=== PATIENT | male | born 1940 | race Caucasian/White ===

== ENCOUNTER 2021-11-09 10:39 | Emergency (ER) | payer MEDICARE, OTHER, SELFPAY ==
[2021-11-09 10:40] VITALS: BP 136/64; PULSE 75; RESP 16; TEMP 36.8; O2SAT 95; BMI 38.6
--- NOTE | 2021-11-09 10:57 | CT_ITS ---
INDICATION: Chest and back pain EXAMINATION: CTA CHEST, ABDOMEN AND PELVIS WITH CONTRAST - TECHNIQUE: A CTA of the chest, abdomen, and pelvis is obtained with sagittal and coronal reconstructed MIP views. Three-dimensional surface rendered sequence of the thoracic and abdominal aorta was obtained. A radiation dose optimization technique was used for this scan. 100 mL of Isovue-370. Oral contrast: None. COMPARISON: None. FINDINGS: CT CHEST: THORACIC AORTA: Scattered atherosclerotic plaque formation of the aortic arch, no aneurysmal changes or dissection. ABDOMINAL AORTA: No aneurysm or dissection. Scattered atherosclerotic plaques. The iliac arteries are unremarkable. LUNGS: Mild degree of scarring in the posterior medial segments of both lower lobes. MEDIASTINUM: The thyroid gland is normal. No mediastinal or hilar adenopathy. HEART: Heart is normal size. No pericardial effusion. Coronary artery calcification. CT ABDOMEN AND PELVIS: LIVER: Diffuse fatty infiltration of the liver. The patient is status post cholecystectomy. GALLBLADDER: Status post cholecystectomy. SPLEEN: Normal. PANCREAS: Pancreatic atrophy. ADRENAL GLANDS: Normal. KIDNEYS AND URETERS: The kidneys both enhance appropriately. Mild degree of bilateral renal cortical thinning. Nonspecific bilateral perinephric stranding.. No hydronephrosis or nephrolithiasis. No renal masses or cysts. STOMACH: Normal. SMALL BOWEL: No abnormal distention of the small bowel. MESENTERY: No mesenteric inflammation. No ascites. COLON: Scattered sigmoid diverticula. The colon otherwise is normal. There is a large fatty ileocecal valve. APPENDIX: The patient is status post appendectomy. IVC: Normal. RETROPERITONEUM: No retroperitoneal lymphadenopathy. PELVIC STRUCTURES: Mild lateral wall thickening. Prostatic enlargement. The prostate measures 4.5 cm x 5.8 cm. This causes indentation at the bladder base. SOFT TISSUES ABDOMEN: Small umbilical hernia containing fat. SOFT TISSUE CHEST: The extrathoracic soft tissues are normal. BONES: Degenerative changes of the lumbar spine as well as both hip joints. CT/CTA Chst, Abd, Pel W and/or WO IMPRESSION: No evidence of the thoracic or abdominal aortic aneurysm. Fatty infiltration of the liver. Nonspecific bilateral perinephric stranding. Electronically Signed: Ja Hernández MD at 13:33 EDT ,
--- NOTE | 2021-11-09 10:58 | EKG12_ITS ---
Test Reason : CP Blood Pressure : / mmHG Vent. Rate : 066 BPM Atrial Rate : 066 BPM P-R Int : 168 ms QRS Dur : 102 ms QT Int : 378 ms P-R-T Axes : 009 -27 047 degrees QTc Int : 396 ms Sinus rhythm with Premature supraventricular complexes Inferior infarct , age undetermined Abnormal ECG Confirmed by AMAURI ROWLEY, MERLY ([id number]), art editor CEASAR ANTUNEZ ([id number]) on 11/10/2021 12:53:04 PM Referred By: PL Confirmed By:MERLY BAUGH MD
[2021-11-09 11:00] VITALS: BP 120/60; PULSE 58; RESP 18; O2SAT 96
[2021-11-09] MEDS: DiphenhydrAMINE 50 MG/ML Syringe IV (11:11)
--- NOTE | 2021-11-09 11:12 | EDS_ITS ---
HPI History of Present Illness Chief Complaint: Chest Pain Informant: patient Narrative Narrative: Patient feels he had a reaction to the Moderna and shingles vaccine. He felt perfectly normal this morning. He went to get his fourth Moderna shot and his shingles vaccine. About 10 minutes later he was sitting in his truck. He got pain in his lower back and then his left upper chest. He felt a little lightheaded with this. However, he was not short of breath. He had no nausea vomiting. He took some of his own nitro and the nitro by the squad and he is now down to about a 2. He states is progressively getting less and less. He had no abdominal pain. He had no numbness tingling weakness. He has no history of AAA. He has history of angina but has never had stents. Of note, he had a heart catheterization many years ago. He did not require any stenting or intervention. However, he did have swelling afterwards and had a reaction to the IV contrast. He was told he is at high risk taking this again. He has not had it since to the best of his knowledge. [facility] Medical History Diabetes High cholesterol Hypertension Hypothyroid Home Medications aspirin 325 mg PO DAILY@0800 08/20/16 [History Last Taken Unknown] atenolol 25 mg PO QHS 08/20/16 [History Last Taken Unknown] atorvastatin 40 mg PO QHS 08/20/16 [History Last Taken Unknown] hydrochlorothiazide 12.5 mg PO DAILY 08/20/16 [History Last Taken Unknown] insulin glargine [Lantus] 30 unit SQ QHS 08/20/16 [History Last Taken Unknown] insulin lispro [Humalog KwikPen] 10 unit SQ TIDCM 08/20/16 [History Last Taken Unknown] levothyroxine 75 mcg PO DAILY 08/20/16 [History Last Taken Unknown] losartan [Cozaar] 50 mg PO DAILY 08/20/16 [History Last Taken Unknown] metformin 850 mg PO BIDCM 08/20/16 [History Last Taken Unknown] nitroglycerin 0.4 mg SUBLINGUAL Q5M PRN 08/20/16 [History Last Taken Unknown] omega-3 fatty acids [Fish Oil] 1,000 mg PO DAILY 02/18/17 [History Last Taken Unknown] etodolac 400 mg PO BID 11/09/21 [History Last Taken Unknown] Allergy/AdvReac Type Severity Reaction Status Date / Time iodine Allergy Swelling Verified 11/09/21 10:43 Surgical History History of appendectomy History of cholecystectomy History of tonsillectomy Social History Smoking Status: Never smoker ROS ROS ED Constitutional Constitutional ED: Denies chills or fever(s) Eyes Eyes: Denies blurry vision or change in vision ENT ENT ED: Denies rhinorrhea or sore throat Cardiovascular Cardiovascular: Reports chest pain; Denies palpitations or racing heartbeat Respiratory/Chest Respiratory/Chest: Denies cough, dyspnea or sputum Gastrointestinal Gastrointestinal: Denies abdominal pain, diarrhea, nausea or vomiting Genitourinary Genitourinary ED: Denies dysuria or hematuria Musculoskeletal Musculoskeletal: Reports back pain; Denies arthralgias, myalgias or neck pain Neurologic Neurologic: Denies headache(s) or weakness Psychiatric Psychiatric: Denies anxiety or depression Endocrine Endocrinology: Reports other Details: Blood sugar was normal at about 80 this morning per the patient. ; Denies polydipsia or polyuria Hematologic/Lymphatic Hematologic/Lymphatic: Reports other Details: Patient is on baby aspirin and did take it today. He is on no other anticoagulation. ; Denies easy bleeding or easy bruising Allergic/Immunologic Allergic/Immunologic ED: Denies mouth swelling or urticaria EXAM Physical Exam Const Vital Signs: 11/09/21 10:40 11/09/21 11:00 11/09/21 11:06 Temperature 98.3 F Temperature Source Oral Pulse Rate 75 58 L Respiratory Rate 16 18 Blood Pressure 136/64 H 120/60 Blood Pressure Mean 88 80 Pulse Ox 95 96 Oxygen Delivery Method Room Air Room Air Room Air 11/09/21 12:00 11/09/21 12:45 Temperature Temperature Source Pulse Rate 57 L 67 Respiratory Rate 18 24 H Blood Pressure 115/55 L 117/58 L Blood Pressure Mean 75 77 Pulse Ox 95 95 Oxygen Delivery Method Room Air Room Air Patient looks comfortable. He is nontoxic. He is not diaphoretic. Positive well nourished, well developed and obese General Appearance ED: well developed and NAD Nutritional Appearance: obese HEENT Reports moist mucous membranes Eyes General Eye ED: Negative for pale conjunctiva or scleral icterus Neck No no JVD Chest Wall inspection of chest normal Resp normal respiratory effort Effort and Inspection: respiratory distress Cardio regular rate, regular rhythm and no murmurs Back/Spine no CVA tenderness Extremity normal to inspection Extremity Narrative: No notable anemia. He has good equal peripheral pulses x4. No mottling or duskiness of extremities. No indication of poor peripheral perfusion. General Extremety ED: Negative for edema or tenderness General Extremity: Negative for edema Neuro Sensorium / Orientation: awake and alert Psych mental status grossly normal Skin no rashes or lesions noted MDM MDM MDM Narrative Medical decision making narrative: Patient has history of significant reaction to IV contrast potentially. I do not have the details of what happened in the past. I will start Benadryl and Solu-Medrol. We will get other blood work back. He is clinically stable. Our plan is to get CT angiogram. Patient was able to get the CT angiogram without any sign of reaction. This showed a nonspecific perinephric stranding but no other acute process. Patient has no urinary symptoms at all. He states he mostly had pain in his back. He had little sensation in his left chest that was minimal. His troponin and repeat troponin are negative. His blood work shows some mild renal dysfunction which is baseline. Nonspecific white count elevation at 12. Hemoglobin stable. Patient feels this is likely a reaction to the shot. It certainly possible since he got 2 immunizations at once. He states he has little soreness in his back with motion but that is it. We did get him up and walked. He actually walked very well. He feels good. I think we can get him home at this time. He is comfortable with this plan. Lab Data Attestation: I reviewed the patient's lab results. Labs: Laboratory Results - last 24 hr 11/09/21 11/09/21 11/09/21 10:42 10:42 13:20 WBC 12.0 H RBC 5.35 Hgb 15.2 Hct 46.4 MCV 86.7 MCH 28.4 MCHC 32.8 RDW Std Deviation 43.3 RDW Coeff of Tyesha 13.7 Plt Count 272 MPV 10.9 Immature Gran % (Auto) 2.200 H Neut % (Auto) 76.8 H Lymph % (Auto) 15.1 L [place] % (Auto) 4.9 Eos % (Auto) 0.6 Baso % (Auto) 0.4 Absolute Neuts (auto) 9.2 H Absolute Lymphs (auto) 1.80 Nucleated RBC % 0 Sodium 142 Potassium 4.4 Chloride 108 H Carbon Dioxide 24.0 Anion Gap 10 BUN 31 H Creatinine 1.48 H Estim Creat Clear Calc 36.60 Est GFR (MDRD) Af Amer 59 L Est GFR (MDRD) Non-Af 48 L BUN/Creatinine Ratio 20.9 H Glucose 108 H Calcium 9.6 Troponin I High Sens 7 9 Radiography Diagnostic Testing: Clinical Impression(s) from Imaging Studies Chest/Abdomen/Pelvis CTA 11/09/21 10:57 IMPRESSION: No evidence of the thoracic or abdominal aortic aneurysm. Fatty infiltration of the liver. Nonspecific bilateral perinephric stranding. Electronically Signed: Ja Hernández MD at 13:33 EDT , Chest X-Ray 11/09/21 11:20 IMPRESSION: Elevation of the right hemidiaphragm with focal right basilar infiltrate. Electronically Signed: Ja Hernández MD at 12:19 EDT , EKG Initial EKG: Comments: EKG done for transient chest pain read by me shows sinus rhythm with occasional PVC. No ventricular ectopy. Diffuse nonspecific ST and T wave changes but no sign of acute infarct or ischemia. [place] interval, QRS duration and QTc are normal. Discharge Plan Triage Chief Complaint: Chest Pain ED Provider: Gregory Newman Dx/Rx/DC Orders Clinical Impression: Lumbar back pain, Chest pain, Immunization reaction Instructions: ED Drug Reaction, Other, ED Pain, Acute, Uncertain Cause Prescriptions: No Action losartan [Cozaar] 50 MG tablet 50 mg PO DAILY RF: 0 atorvastatin 40 MG tablet 40 mg PO QHS RF: 0 Lantus U-100 Insulin 100 UNIT/ML solution 30 unit SQ QHS RF: 0 aspirin 325 MG tablet 325 mg PO DAILY@0800 RF: 0 metformin 850 MG tablet 850 mg PO BIDCM RF: 0 atenolol 25 MG tablet 25 mg PO QHS RF: 0 levothyroxine 75 MCG tablet 75 mcg PO DAILY RF: 0 nitroglycerin 0.4 MG tablet 0.4 mg sublingual Q5M PRN (Reason: Chest Pain) RF: 0 hydrochlorothiazide 25 MG tablet 12.5 mg PO DAILY RF: 0 insulin lispro [Humalog KwikPen Insulin] 100 UNIT/ML insulin pen 10 unit SQ TIDCM RF: 0 Fish Oil 500 MG capsule 1,000 mg PO DAILY RF: 0 etodolac 400 mg tablet 400 mg PO BID RF: 0 Primary Care Provider: Demetris Fuentes Referrals: Demetris Fuentes MD [Primary Care Provider] - 3-5 Days Disposition Disposition: Home, Self Care
[2021-11-09 11:14] LABS: Absolute Neutrophil Count 9.2 X10^3/uL (2.0-7.7); Basophil# 0.05 X10^3/uL; Basophil% 0.4 % (0-1); Eosinophil# 0.07 X10^3/uL; Eosinophils% 0.6 % (0-5); Hematocrit 46.4 % (40-54); Hemoglobin 15.2 g/dL (13.0-16.5); Lymphocyte % 15.1 % (19-41); Mean Corp Hgb Conc 32.8 g/dL (32-36); Mean Corpuscular Hgb 28.4 pg (27.0-32.0); Mean Corpuscular Volume 86.7 fL (80-94); Mean Platelet Vol. 10.9 fl (6.2-12.0); Monocyte# 0.59 X10^3/uL; Monocyte% 4.9 % (0-10); NRBC Flagged by Analyzer 0 % (0-5); Neutrophil # 9.18 X10^3/uL (2.7-7.7); Neutrophil % 76.8 % (47-70); Platelet Count 272 K/mm3 (150-450); RBC Distribution Width CV 13.7 % (11.6-14.6); RBC Distribution Width SD 43.3 fl (35.1-43.9); Red Blood Count 5.35 M/mm3 (4.6-6.2)
--- NOTE | 2021-11-09 11:20 | RAD_ITS ---
STUDY: X-RAY CHEST REASON FOR EXAM: Male, 80 years old. Chest pain TECHNIQUE: Single AP portable view of the chest. COMPARISON: None. FINDINGS: EKG electrodes are seen. There is elevation of the right hemidiaphragm. Focal infiltrate is seen in the right lower lobe. There is no demonstrated pleural abnormality. There is mild cardiac enlargement. Normal mediastinum and nghia. Normal visualized pulmonary arteries. There is atherosclerotic calcification of the aortic arch with tortuosity. Normal visualized thoracic spine. Normal visualized ribs, clavicles, and shoulders. There is no demonstrated abnormality of the visualized soft tissue structures of the upper abdomen. RAD/Chest 1 View (Portable) IMPRESSION: Elevation of the right hemidiaphragm with focal right basilar infiltrate. Electronically Signed: Ja Hernández MD at 12:19 EDT ,
[2021-11-09 11:30] LABS: Anion Gap 10 (5-15); BUN 31 mg/dL (7-18); BUN/Creat Ratio 20.9 RATIO (10-20); Calcium,Total 9.6 mg/dL (8.5-10.1); Chloride 108 mmol/L (98-107); Creatinine, Serum 1.48 mg/dL (0.70-1.30); EST Glomerular Filtration Rate 48 mL/min (>60); Est Glom Filt Rate - Afr Amer 59 mL/min (>60); Glucose 108 mg/dL (74-106); Potassium 4.4 mmol/L (3.5-5.1); Sodium Level 142 mmol/L (136-145); Troponin-I HS (w/2H Reflex) 7 pg/mL (3.0-78.0)
[2021-11-09 12:00] VITALS: BP 115/55; PULSE 57; RESP 18; O2SAT 95
[2021-11-09 12:45] VITALS: BP 117/58; PULSE 67; RESP 24; O2SAT 95
[2021-11-09 13:10] LABS: Reflex Troponin-HS? (from REC) Y
[2021-11-09 13:46] LABS: Troponin-I HS 9 pg/mL (3.0-78.0)
[2021-11-09 14:21] VITALS: BP 128/78; PULSE 66; RESP 15; O2SAT 99
== END 2021-11-09 14:22 | disposition home or self-care (01) ==
PROVIDERS: Emergency Provider Emergency Medicine; PCP Family Medicine; Visit Provider Emergency Medicine
DX: R07.9 Chest pain, unspecified (principal); E11.9 Type 2 diabetes mellitus without complications; Z79.4 Long term (current) use of insulin; M54.50 Low back pain, unspecified; T78.49XA Other allergy, initial encounter; T50.B95A Adverse effect of other viral vaccines, initial encounter; E78.00 Pure hypercholesterolemia, unspecified; I10 Essential (primary) hypertension; E03.9 Hypothyroidism, unspecified; Z79.82 Long term (current) use of aspirin; Z79.84 Long term (current) use of oral hypoglycemic drugs; Z79.899 Other long term (current) drug therapy
CPT/HCPCS: 71045; 71275; 74174; 80048; 84484; 85025; 93005; 96374; 96375; 99285; Q9967; A4216

== ENCOUNTER 2022-07-06 10:39 | Inpatient (IN) | payer MEDICARE, OTHER, SELFPAY ==
[2022-07-06] VITALS (15 sets, daily range): BP systolic 146–186; BP diastolic 70–110; PULSE 65–142; RESP 14–25; TEMP 36.2–37.3; O2SAT 82–98; BMI 38.7; BMI 39.2
--- NOTE | 2022-07-06 12:43 | EKG12_ITS ---
Test Reason : DYSRHYTHMIA Blood Pressure : / mmHG Vent. Rate : 066 BPM Atrial Rate : 066 BPM P-R Int : 174 ms QRS Dur : 104 ms QT Int : 392 ms P-R-T Axes : -28 -31 061 degrees QTc Int : 410 ms Normal sinus rhythm with sinus arrhythmia Left axis deviation Incomplete right bundle branch block Minimal voltage criteria for LVH, may be normal variant ( R in aVL ) Inferior infarct , age undetermined Anterior infarct , age undetermined Abnormal ECG Confirmed by VALE ROWLEY, ROGELIO ([id number]), editor trade journal CEASAR ANTUNEZ ([id number]) on 07/08/2022 6:28:50 AM Referred By: JUNITO Confirmed By:SHIRA COLLAZO MD
--- NOTE | 2022-07-06 12:44 | EDS_ITS ---
HPI History of Present Illness Chief Complaint: Weakness Informant: patient and family (son) Onset/Context/Timing Onset: Today Context: - (Woke up with symptoms) Timing: Continuous Quality: Weakness Location: All over Current Severity: Severe Maximum Severity: Severe Worsened by: Nothing Relieved by: Nothing Narrative Narrative: Patient has felt so weak this morning that he tried to get up and around his house, but this resulted in a fall because his legs would not hold him up. Of diarrhea this morning that was loose not watery, nonmelanotic, nonbloody, but not enough to make him dehydrated. He felt fine yesterday. He has had swelling in his legs that is chronic and may be worse in the last several weeks. He denies any fevers or chills but he has had a cough recently, no dyspnea, chest pain, or other abdominal symptoms such as pain or nausea. Patient also states he has a little bit of tingling in his left upper extremity and does not know how long that has been there. Denies any weakness in it. [facility] Medical History (Updated 07/06/22 @ 18:13 by Lisette Nuñez) Diabetes High cholesterol Hypertension Hypothyroid Lactose intolerance Osteoarthritis Stroke/cerebrovascular accident Home Medications aspirin 325 mg tablet 325 mg PO DAILY@0800 HEALTH MAINTENANCE 08/20/16 [History Last Taken 07/06/22] atenolol 25 mg tablet 25 mg PO QHS BP 08/20/16 [History Last Taken 07/05/22] atorvastatin 40 mg tablet 40 mg PO QHS CHOLESTEROL 08/20/16 [History Last Taken 07/05/22] insulin glargine 100 unit/mL subcutaneous solution (Lantus U-100 Insulin) 27 unit SQ QHS DM 08/20/16 [History Last Taken 07/05/22] insulin lispro 100 unit/mL subcutaneous pen (Humalog KwikPen (U-100) Insulin) 9 unit SQ TIDCM DM 08/20/16 [History Last Taken 07/06/22] levothyroxine 75 mcg tablet 75 mcg PO DAILY THYROID 08/20/16 [History Last Taken 07/06/22] losartan 50 mg tablet (Cozaar) 50 mg PO DAILY BP 08/20/16 [History Last Taken 07/06/22] metformin 850 mg tablet 850 mg PO BIDCM DM 08/20/16 [History Last Taken 07/06/22] nitroglycerin 0.4 mg sublingual tablet 0.4 mg sublingual Q5M PRN Chest Pain 08/20/16 [History Last Taken Unknown] etodolac 400 mg tablet 400 mg PO BID PAIN 11/09/21 [History Last Taken 07/06/22] hydrochlorothiazide 12.5 mg capsule 12.5 mg PO DAILY BP 07/06/22 [History Last Taken 07/06/22] omega-3 fatty acids 1,000 mg PO DAILY SUPPLEMENT 07/06/22 [History Last Taken 07/06/22] Allergy/AdvReac Type Severity Reaction Status Date / Time iodine Allergy Swelling Verified 07/06/22 10:41 Surgical History History of appendectomy History of cholecystectomy History of tonsillectomy Social History (Updated 07/06/22 @ 17:[address] Mode Verdugo, DO) Smoking Status: Never smoker alcohol intake: never substance use type: does not use ROS ROS ED Constitutional Constitutional ED: Reports weakness; Denies chills or fever(s) Eyes Eyes: Denies change in vision or diplopia ENT ENT ED: Denies rhinorrhea or sore throat Cardiovascular Cardiovascular: Reports leg edema; Denies chest pain or palpitations Respiratory/Chest Respiratory/Chest: Reports cough; Denies dyspnea Gastrointestinal Gastrointestinal: Reports diarrhea; Denies abdominal pain, melena, nausea or vomiting Genitourinary Genitourinary ED: Denies dysuria or hematuria Musculoskeletal Musculoskeletal: Denies back pain or neck pain Integumentary Denies abscess or rash Neurologic Neurologic: Reports paresthesias LUE; Denies headache(s) or weakness Psychiatric Psychiatric: Denies anxiety or suicidal thoughts EXAM Physical Exam Const Vital Signs: 07/06/22 10:41 07/06/22 12:15 07/06/22 12:15 Temperature 97.2 F L Temperature Source Temporal Pulse Rate 71 65 Respiratory Rate 14 15 Respiratory Effort Normal Respiratory Pattern Normal Blood Pressure 186/109 H 164/91 H Blood Pressure Mean 134 115 Pulse Ox 97 97 Oxygen Delivery Method Room Air Room Air 07/06/22 14:31 07/06/22 15:10 07/06/22 16:29 Temperature Temperature Source Pulse Rate 142 H 73 76 Respiratory Rate 23 H 16 25 H Respiratory Effort Respiratory Pattern Blood Pressure 146/110 H 175/79 H Blood Pressure Mean 122 111 Pulse Ox 95 95 98 Oxygen Delivery Method Room Air Room Air Room Air 07/06/22 17:31 Temperature 98.6 F Temperature Source Temporal Pulse Rate 74 Respiratory Rate 18 Respiratory Effort Respiratory Pattern Blood Pressure 164/74 H Blood Pressure Mean 104 Pulse Ox 96 Oxygen Delivery Method Room Air Positive well nourished, well developed and obese General Appearance ED: well developed and NAD Nutritional Appearance: obese HEENT Reports moist mucous membranes normocephalic and atraumatic Eyes PERRL and EOMs intact bilaterally Neck full ROM and supple Resp normal respiratory effort and clear to auscultation bilaterally Cardio regular rate, regular rhythm and no murmurs Rate: Negative for tachycardic GI non-tender and non-distended Auscultation: normoactive bowel sounds Palpation: soft Back/Spine no CVA tenderness General Back: other FROM Extremity normal to inspection General Extremety ED: Yes edema; Negative for pulses abnormal or tenderness General Extremity: edema bilateral lower extremity Details: severe (Symmetric without signs of cellulitis or palpable cords or calf tenderness); Negative for pulses abnormal Neuro oriented x3, CN's II-XII intact bilaterally and no sensory deficits noted Neuro Narrative: Sensation grossly intact left upper extremity and elsewhere. No focal weakness. He can hold each of his 4 extremities up for 5 or 10 seconds dependent on upper or lower without any difficulty. Sensorium / Orientation: awake and alert Motor Exam: general weakness Skin no rashes or lesions noted and no wounds NIHSS NIHSS Initial: 1a Level of Consciousness: 0 1b LOC Questions (Score 2 if aphasic/stupor): 0 1c LOC Commands (Only score 1st attempt): 0 2 Best Gaze (If aphasic, use reflexive mvmts.): 0 3 Visual: 0 4 Facial Palsy: 0 5 Motor Arm Right (UN = amputation/fusion): 0 5 Motor Arm Left: 2 6 Motor Leg Right: 0 6 Motor Leg Left: 0 7 Limb ataxia (Only + if out of proportion): 0 8 Sensory (Aphasia/stupor=0 or 1, coma=2): 0 9 Best Language: 0 10 Dysarthria (mute, coma=2, intubated=UN): 0 11 Extinction and Inattention (only scored if +): 0 Total Score: 2 Follow up: 1a Level of Consciousness: 0 1b LOC Questions (Score 2 if aphasic/stupor): 0 1c LOC Commands (Only score 1st attempt): 0 2 Best Gaze (If aphasic, use reflexive mvmts.): 0 3 Visual: 0 4 Facial Palsy: 0 5 Motor Arm Right (UN = amputation/fusion): 0 5 Motor Arm Left: 2 6 Motor Leg Right: 0 6 Motor Leg Left: 2 7 Limb ataxia (Only + if out of proportion): 0 8 Sensory (Aphasia/stupor=0 or 1, coma=2): 0 9 Best Language: 0 10 Dysarthria (mute, coma=2, intubated=UN): 0 11 Extinction and Inattention (only scored if +): 0 Total Score: 4 MDM MDM MDM Narrative Medical decision making narrative: Other than prerenal azotemia the rest of the labs are unremarkable. His EKG shows a sinus rhythm and no acute ischemic abnormalities, no major changes compared with his prior. His troponin is within normal limits. Given his cough I did a 2 view chest x-ray, it appears to show right lower lobe infiltrate. Etiology in agreement. I interpreted the film. It is a limited view due to elevated hemidiaphragm. While the patient was here, he turned his head and felt like his head was still going, suggesting to us that it felt similar to an episode of vertigo that he had in the past. 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 Therefore he was sent for a CT of the head and since his chest x-ray showed a limited view of a possible worsening consolidation I sent him for CT of the chest as well at the same time. My interpretation of the CT agrees with that of the radiologist. It appears to be consistent with the possibility of early pneumonia which we will treat him for. While we were waiting for these results, the patient started having discomfort in his left forearm/arm and stated that the tingling went away. The nurse reevaluated him, and was concerned because the patient was also developing another headache on the right side, and they tried to get him to go to the bathroom and his left leg gave out on him when they try to get him to a bedside commode. I reexamined him after all of this, we checked his blood sugar was in the 170s, and I reexamined his neurologic exam, he has true weakness in his left upper extremity that is not limited by pain. The son states this has been this way for months. However, he is acutely weak in his left lower extremity compared to when I first evaluated him just over 1 hour ago. Therefore I called a stroke team so that neurology could evaluate him at the bedside via telemedicine and we could discuss the best option moving forward. Also obtained a repeat EKG given his left upper extremity discomfort, that is unchanged. Dr. Gary with stroke neurology evaluated the patient at the bedside while I discussed the case with him. He agrees that the fluctuating blood pressures along with fluctuating severity of symptoms are concerning for stroke, but since the patient was last known completely well at 2130 yesterday before he went to bed, and it is unclear exactly when any of these lateralizing symptoms started, he advises AGAINST IV alteplase, which I am in agreement with. He does advise urgent/emergent vessel imaging. The patient has a reaction to iodinated contrast dye that was given to him during a heart cath, causing swelling throughout his head and face. He did not require intubation at that time. Therefore I initially discussed with MRI, their schedule is full, they have someone on the table, and they are not able to perform emergent MRA only of the brain within the next 2-4 hours. Therefore, according to stroke neurology recommendations, CT angiography of the head and neck will be obtained an hour from now according to our emergency protocol, after pretreating the patient with Solu-Medrol and Benadryl. It does appear that he was successfully pretreated for a contrasted CT study in October of this past year and did not have a reaction. Discussed this with the patient. Pt to be admitted here if there is no LVO on the CTA. Lab Data Attestation: I reviewed the patient's lab results. Labs: Laboratory Results - last 24 hr 07/06/22 07/06/22 07/06/22 13:02 13:02 16:27 WBC 11.1 H RBC 4.97 Hgb 14.0 Hct 43.7 MCV 87.9 MCH 28.2 MCHC 32.0 RDW Std Deviation 44.6 H RDW Coeff of Tyesha 13.8 Plt Count 256 MPV 10.3 Immature Gran % (Auto) 0.500 Neut % (Auto) 71.1 H Lymph % (Auto) 18.1 L Hunt % (Auto) 8.8 Eos % (Auto) 1.1 Baso % (Auto) 0.4 Absolute Neuts (auto) 7.9 H Absolute Lymphs (auto) 2.01 Nucleated RBC % 0 Sodium 143 Potassium 4.1 Chloride 110 H Carbon Dioxide 27.0 Anion Gap 6 BUN 25 H Creatinine 1.18 Estim Creat Clear Calc 43.55 Est GFR (MDRD) Af Amer 76 Est GFR (MDRD) Non-Af 63 BUN/Creatinine Ratio 21.2 H Glucose 144 H Calcium 9.2 Total Bilirubin 0.70 AST 19 ALT 32 Alkaline Phosphatase 113 Troponin I High Sens 14 Total Protein 6.6 Albumin 3.2 Globulin 3.4 Albumin/Globulin Ratio 0.9 Urine Color Yellow Urine Clarity Clear Urine pH 6.0 Ur Specific [place] 1.020 Urine Protein 100 H Urine Glucose (UA) Normal Urine Ketones 15 H Urine Occult Blood 10 H Urine Nitrite Negative Urine Bilirubin 6 H Urine Urobilinogen Normal Ur Leukocyte Esterase Negative Urine RBC 0 SEEN Urine WBC 0 SEEN Ur Squamous Epith Cells 0 SEEN Urine Bacteria 0 SEEN Urine Mucus 0 SEEN Radiography Diagnostic Testing: Clinical Impression(s) from Imaging Studies Chest X-Ray 07/06/22 13:17 IMPRESSION: Stable elevation of the right hemidiaphragm with the right basilar infiltrate and/or atelectasis which has progressed as compared to prior study. Mild increased markings at the left lung base. Electronically Signed: Ja Hernández MD at 13:49 EST , Brain CT 07/06/22 13:54 IMPRESSION: Chronic involutional changes of the brain. N.B. : The above Results were Read Back by Ja Hernández MD to Sagar Jameson and understanding confirmed on 07/06/2022 14:49:37 (ET). Electronically Signed: Ja Hernández MD at 14:51 EST , ADDENDUM: 07/06/22 1458 IMPRESSION: Chronic involutional changes of the brain. N.B. : The above Results were Read Back by Ja Hernández MD to Sagar Jameson and understanding confirmed on 07/06/2022 14:49:37 (ET). Electronically Signed: Ja Hernández MD at 14:51 EST , Chest CT 07/06/22 13:58 IMPRESSION: Elevation of the right hemidiaphragm with increased markings in the posterior medial segment of the right lower lobe. This has progressed as compared to prior study and most likely represents progressive atelectasis and/or early infiltrate. Electronically Signed: Ja Hernández MD at 14:57 EST , Head/Neck CTA 07/06/22 15:14 IMPRESSION: 1. There is mild atherosclerotic plaque formation of the origin of the right internal carotid artery with less than 50% cross sectional diameter stenosis. ALL ABOVE CRITERIA BY NASCET. 2. There is mild atherosclerotic plaque formation of the origin of the left internal carotid artery with less than 50% cross sectional diameter stenosis. ALL ABOVE CRITERIA BY NASCET. 3. There is calcified plaque formation of the right cavernous carotid artery, with a mild stenosis (less than 50%). ALL ABOVE CRITERIA BY NASCET. 4. There is calcified plaque formation of the left cavernous carotid artery, with a mild stenosis (less than 50%). ALL ABOVE CRITERIA BY NASCET. Electronically Signed: Reddy Leiva MD at 17:21 EST , ADDENDUM: 07/06/22 1733 IMPRESSION: 1. There is mild atherosclerotic plaque formation of the origin of the right internal carotid artery with less than 50% cross sectional diameter stenosis. ALL ABOVE CRITERIA BY NASCET. 2. There is mild atherosclerotic plaque formation of the origin of the left internal carotid artery with less than 50% cross sectional diameter stenosis. ALL ABOVE CRITERIA BY NASCET. 3. There is calcified plaque formation of the right cavernous carotid artery, with a mild stenosis (less than 50%). ALL ABOVE CRITERIA BY NASCET. 4. There is calcified plaque formation of the left cavernous carotid artery, with a mild stenosis (less than 50%). ALL ABOVE CRITERIA BY NASCET. N.B. : The above Results were Read Back by Reddy Leiva MD to Mai Carolina MD, and understanding confirmed on 07/06/2022 17:26:46 (ET). Electronically Signed: Reddy Leiva MD at 17:21 EST , Rhythm Strip Rhythm Strip: Sinus Rhythm Rate: 65 Ectopy: None EKG Initial EKG: Attestation: I personally reviewed and interpreted this EKG as follows: Interpretation: Sinus Rhythm, No Acute Injury Pattern and RBBB (incomplete) Prior EKG tracings: available for review Prior: Unchanged Follow-up EKG: Attestation: I personally reviewed and interpreted this EKG as follows: Interpretation: Sinus Rhythm and No Acute Injury Pattern Prior: Unchanged Critical Care Time Critical Care Time: Yes Critical care time (excluding procedures): 30-74 minutes (60 min), Including time spent:, Discussing w/Patient &/or Family/Signal Processing Engineer, Discussing w/Consultants, Arranging Admission or Transfer and Performing Direct Patient Care at Bedside (mult reevaluations and discussion w/ pt, son) Discharge Plan Dx/Rx/DC Orders Clinical Impression: Acute ischemic stroke, Pneumonia, Accelerated hypertension, Bilateral edema of lower extremity Disposition Disposition: Acute Care [facility]
[2022-07-06 13:11] LABS: Absolute Lymphocyte Count 2.01 X10^3/uL (0.83-4.51); Absolute Neutrophil Count 7.9 X10^3/uL (2.0-7.7); Basophil# 0.04 X10^3/uL; Basophil% 0.4 % (0-1); Eosinophil# 0.12 X10^3/uL; Eosinophils% 1.1 % (0-5); Hematocrit 43.7 % (40-54); Lymphocyte # 2.01 X10^3/ul (0.83-4.51); Lymphocyte % 18.1 % (19-41); Mean Corpuscular Hgb 28.2 pg (27.0-32.0); Mean Corpuscular Volume 87.9 fL (80-94); Mean Platelet Vol. 10.3 fl (6.2-12.0); Monocyte# 0.98 X10^3/uL; Monocyte% 8.8 % (0-10); NRBC Flagged by Analyzer 0 % (0-5); Neutrophil # 7.88 X10^3/uL (2.7-7.7); Neutrophil % 71.1 % (47-70); Platelet Count 256 K/mm3 (150-450); RBC Distribution Width CV 13.8 % (11.6-14.6); RBC Distribution Width SD 44.6 fl (35.1-43.9); Red Blood Count 4.97 M/mm3 (4.6-6.2); White Blood Count 11.1 K/mm3 (4.4-11.0)
--- NOTE | 2022-07-06 13:17 | RAD_ITS ---
STUDY: X-RAY CHEST REASON FOR EXAM: Male, 81 years old. Cough, weakness . Lightheadedness. TECHNIQUE: AP and lateral views of the chest. COMPARISON: Comparison is made with prior examination dated 11/09/2021. FINDINGS: Stable elevation of the right hemidiaphragm. Persistent increased markings in the right lower lobe suggestive of a right basilar infiltrate and/or atelectasis. Mild increased markings at the left lung base. There is no demonstrated pleural abnormality. There is mild cardiac enlargement. Normal mediastinum and nghia. Normal visualized pulmonary arteries. There is atherosclerotic tortuosity of the aortic arch and descending thoracic aorta. Normal visualized thoracic spine. There is degenerative osteoarthritis of the bilateral shoulders. There is no demonstrated abnormality of the visualized soft tissue structures of the upper abdomen. RAD/Chest PA and Lateral IMPRESSION: Stable elevation of the right hemidiaphragm with the right basilar infiltrate and/or atelectasis which has progressed as compared to prior study. Mild increased markings at the left lung base. Electronically Signed: Ja Hernández MD at 13:49 EST ,
[2022-07-06 13:33] LABS: ALB/GLOB Ratio 0.9 RATIO (0.9-2.4); AST(SGOT) 19 U/L (15-37); Alanine Aminotransfer ALT/SGPT 32 U/L (16-61); Albumin, Serum 3.2 g/dL (3.2-5.0); Alkaline Phosphatase 113 U/L (45-117); Anion Gap 6 (5-15); BUN 25 mg/dL (7-18); BUN/Creat Ratio 21.2 RATIO (10-20); Calcium,Total 9.2 mg/dL (8.5-10.1); Chloride 110 mmol/L (98-107); Creatinine, Serum 1.18 mg/dL (0.70-1.30); EST Glomerular Filtration Rate 63 mL/min (>60); Est Glom Filt Rate - Afr Amer 76 mL/min (>60); Estimated Creatinine Clearance 43.55 ml/min; Globulin 3.4 g/dL (2.2-4.2); Glucose 144 mg/dL (74-106); Potassium 4.1 mmol/L (3.5-5.1); Protein, Total 6.6 g/dL (6.4-8.2); Sodium Level 143 mmol/L (136-145); Troponin-I HS 14 pg/mL (3.0-78.0)
--- NOTE | 2022-07-06 13:54 | CT_ITS ---
STUDY: CT HEAD STROKE PROTOCOL W/O CONTRAST INJECTION REASON FOR EXAM: Male, 81 years old. LUE tingling, vertigo RADIATION DOSAGE (If Supplied By Facility): CTDIvol = ( 44.99 ) mGy, DLP = ( 829.85 ) mGycm TECHNIQUE: Transaxial CT imaging of the brain was performed without administration of intravenous contrast material. Individualized dose optimization techniques were used for this CT. COMPARISON: Comparison is made with prior study of 08/20/2016. FINDINGS: Normal soft tissue structures. Normal calvarium. There is mild cerebral atrophy with widening of the extra-axial spaces and ventricular dilatation. There are areas of decreased attenuation within the white matter tracts of the supratentorial brain, consistent with microvascular disease changes. Normal basal ganglia and thalami. Normal brainstem. Normal cerebellum. There is no intracranial hemorrhage. There are no findings of an acute ischemic infarction. Atherosclerotic calcific plaques of the cavernous portions of the internal carotid arteries bilaterally. Partial opacification of the maxillary sinuses. Stable 1.9 cm lytic lesion in the medial anterior left maxilla. ASPECT score: 10 CT/STROKE Brain/Head without Cont IMPRESSION: Chronic involutional changes of the brain. N.B. : The above Results were Read Back by Ja Hernández MD to Sagar Jameson and understanding confirmed on 07/06/2022 14:49:37 (ET). Electronically Signed: Ja Hernández MD at 14:51 EST ,
--- NOTE | 2022-07-06 13:58 | CT_ITS ---
STUDY: CT CHEST WITHOUT CONTRAST REASON FOR EXAM: Male, 81 years old. abn CXR, poss pneumonia RADIATION DOSAGE (If Supplied By Facility): CTDIvol = ( 22.72 ) mGy, DLP = ( 973.43 ) mGycm TECHNIQUE: Transaxial imaging was performed without the administration of intravenous contrast material. Multiplanar coronal and sagittal images were reformatted. Individualized dose optimization techniques were used for this CT. COMPARISON: Comparison is made with prior chest radiograph done earlier today. Comparison is also made to prior CT scan of the thorax dated 11/09/2021 FINDINGS: CHEST There is elevation of the right hemidiaphragm. Persistent increased markings at the posterior medial segment of the right lower lobe. This has progressed as compared to prior study and most likely represents atelectasis and/or early infiltrate. There is no demonstrated pleural abnormality. There are calcifications of the coronary arteries. There are multiple small lymph nodes within the mediastinum, which are normal in size and morphology most compatible with reactive lymph hyperplasia. Normal hilar regions. Normal unenhanced pulmonary arteries. There is atherosclerotic calcification of the aortic arch with tortuosity and elongation of the aortic arch and descending thoracic aorta. There are multi-level degenerative changes of the thoracic spine. The patient is status post cholecystectomy. 1.8 cm hypodense nodule in the right adrenal gland suggestive of a small adrenal adenoma. CT/Chest without Contrast IMPRESSION: Elevation of the right hemidiaphragm with increased markings in the posterior medial segment of the right lower lobe. This has progressed as compared to prior study and most likely represents progressive atelectasis and/or early infiltrate. Electronically Signed: Ja Hernández MD at 14:57 EST ,
--- NOTE | 2022-07-06 15:14 | CT_ITS ---
We are attempting to reach an attending provider to discuss findings. An addendum with communication details will be sent when the communication is complete. EXAM: CT ANGIOGRAPHY HEAD AND NECK WITH INTRAVENOUS CONTRAST CLINICAL INDICATION: left hemiparesis TECHNIQUE: [place] [facility] [place]/head and neck CT angiography protocol performed with intravenous contrast. This CT exam was performed using one or more of the following dose reduction techniques: automated exposure control, adjustment of the mA and/or kV according to patient size, and/or use of iterative reconstruction technique. This report was created using [employer] report generation technology. MIP reconstructed images were created and reviewed. CONTRAST: IV 100mL Isovue-370 RADIATION DOSE: CTDIvol = 17.74 mGy, DLP = 795.93 mGy-cm COMPARISON: None. FINDINGS: HEAD: RIGHT ANTERIOR CEREBRAL ARTERY: Unremarkable. No significant stenosis at the visualized segments. Anterior communicating artery is present. No aneurysm. RIGHT MIDDLE CEREBRAL ARTERY: Unremarkable. No significant stenosis at the visualized segments. No aneurysm. RIGHT POSTERIOR CEREBRAL ARTERY: Unremarkable. No occlusion or significant stenosis. No aneurysm. RIGHT INTRACRANIAL INTERNAL CAROTID ARTERY: See below. RIGHT INTRACRANIAL VERTEBRAL ARTERY: Unremarkable. No significant stenosis. No dissection or occlusion. LEFT ANTERIOR CEREBRAL ARTERY: Unremarkable. No significant stenosis at the visualized segments. No aneurysm. LEFT MIDDLE CEREBRAL ARTERY: Unremarkable. No significant stenosis at the visualized segments. No aneurysm. LEFT POSTERIOR CEREBRAL ARTERY: Unremarkable. No occlusion or significant stenosis. No aneurysm. LEFT INTRACRANIAL INTERNAL CAROTID ARTERY: See below. LEFT INTRACRANIAL VERTEBRAL ARTERY: Unremarkable. No significant stenosis. No dissection or occlusion. BASILAR ARTERY: Unremarkable. No significant stenosis. No aneurysm. OTHER VASCULATURE: There is mild atherosclerotic plaque formation of the origin of the right internal carotid artery with less than 50% cross sectional diameter stenosis. ALL ABOVE CRITERIA BY NASCET. There is mild atherosclerotic plaque formation of the origin of the left internal carotid artery with less than 50% cross sectional diameter stenosis. ALL ABOVE CRITERIA BY NASCET. There is calcified plaque formation of the right cavernous carotid artery, with a mild stenosis (less than 50%). ALL ABOVE CRITERIA BY NASCET. NECK: RIGHT COMMON CAROTID ARTERY: Unremarkable. No significant stenosis. No dissection or occlusion. RIGHT EXTRACRANIAL INTERNAL CAROTID ARTERY: See above. RIGHT EXTERNAL CAROTID ARTERY: Unremarkable. No occlusion. RIGHT EXTRACRANIAL VERTEBRAL ARTERY: Unremarkable. No significant stenosis. No dissection or occlusion. LEFT COMMON CAROTID ARTERY: Unremarkable. No significant stenosis. No dissection or occlusion. LEFT EXTRACRANIAL INTERNAL CAROTID ARTERY: See above. LEFT EXTERNAL CAROTID ARTERY: Unremarkable. No occlusion. LEFT EXTRACRANIAL VERTEBRAL ARTERY: Unremarkable. No significant stenosis. No dissection or occlusion. GREAT VESSELS OF AORTIC ARCH: There is calcified plaque formation of the left cavernous carotid artery, with a mild stenosis (less than 50%). ALL ABOVE CRITERIA BY NASCET. LUNG APICES: Unremarkable as visualized. HEAD and NECK: BONES/JOINTS: There are degenerative findings of the cervical spine. No discrete lytic or blastic abnormalities. SOFT TISSUES: Unremarkable. OTHER FINDINGS: Critical finding called and case discussed. CAROTID STENOSIS REFERENCE USING NASCET CRITERIA: % ICA stenosis = (1 - narrowest ICA diameter/diameter of distal cervical ICA) x 100. Mild - <50% stenosis. Moderate - 50-69% stenosis. Severe - 70-94% stenosis. Near occlusion - 95-99% stenosis. Occluded - 100% stenosis. CT/STROKE CTA Head AND Neck W/Con IMPRESSION: 1. There is mild atherosclerotic plaque formation of the origin of the right internal carotid artery with less than 50% cross sectional diameter stenosis. ALL ABOVE CRITERIA BY NASCET. 2. There is mild atherosclerotic plaque formation of the origin of the left internal carotid artery with less than 50% cross sectional diameter stenosis. ALL ABOVE CRITERIA BY NASCET. 3. There is calcified plaque formation of the right cavernous carotid artery, with a mild stenosis (less than 50%). ALL ABOVE CRITERIA BY NASCET. 4. There is calcified plaque formation of the left cavernous carotid artery, with a mild stenosis (less than 50%). ALL ABOVE CRITERIA BY NASCET. Electronically Signed: Reddy Leiva MD at 17:21 EST ,
--- NOTE | 2022-07-06 15:15 | EKG12_ITS ---
Test Reason : STROKE Blood Pressure : / mmHG Vent. Rate : 071 BPM Atrial Rate : 071 BPM P-R Int : 166 ms QRS Dur : 102 ms QT Int : 392 ms P-R-T Axes : 000 -31 031 degrees QTc Int : 425 ms Normal sinus rhythm Left axis deviation Incomplete right bundle branch block Minimal voltage criteria for LVH, may be normal variant ( R in aVL ) Inferior infarct , age undetermined Cannot rule out Anterior infarct , age undetermined Abnormal ECG Confirmed by VALE ROWLEY, ROGELIO ([id number]), commercial production editor CEASAR ANTUNEZ ([id number]) on 07/08/2022 6:32:08 AM Referred By: JUNITO Confirmed By:SHIRA OCLLAZO MD
--- NOTE | 2022-07-06 15:21 | CM.ED ---
Social Work This social service agency director responding to stroke alert. Patient alert and speaking with staff. Patient son present and appears to be coping well. Will continue to follow as needed. Timi PRIDE, GUSTABO-S
[2022-07-06] MEDS: MethylPREDNISolone 125 MG/2 ML Vial IV (15:45)
[2022-07-06] MEDS: DiphenhydrAMINE 50 MG/ML Syringe IV (15:45)
--- NOTE | 2022-07-06 16:03 | CHAPLAIN ---
Type of Pastoral Visit ___ Initial Visit ___ Follow-up Visit ___ On-call Visit ___ General Patient Visit ___ Spiritual Assessment ___ Family Conference ___ Bereavement _x__ Rapid Response ___ Code Blue ___ Other (describe below) Pastoral Care Referral From ___ Patient ___ Family ___ Nurse ___ Physician ___ Crimping Machine Operator For Metal ___ Rug Cleaning Supervisor _x__ Other (describe below) Sacrament/Intervention ___ Active listening ___ Anointing ___ Yazidi ___ Bereavement ___ Communion ___ Ann exploration ___ ___ Life review ___ Prayer ___ Reconciliation ___ Sacrament of Sick _x__ Supportive presence ___ Wedding ___ Other (describe below) Pastoral Comments responded to the stroke alert called in ED; pt was back from CT and doctor ready to consult with neurology from [facility]; family members were in room with patient and doctor; SW had already inquired about needs; no urgent needs at this time; filtrose crusher will remain available should situation change
[2022-07-06 16:32] LABS: Bacteria 0 SEEN /hpf (None Seen); Mucous, Urine 0 SEEN /hpf (<or=2+); Red Blood Cells-Urine 0 SEEN /hpf (0-5); Squamous Epithelial Cells - UA 0 SEEN /hpf (0-5); White Blood Cells 0 SEEN /hpf (0-5)
[2022-07-06 17:01] LABS: Color, Urine Yellow (Yellow); Glucose, Dipstick Normal (Normal); Ketone-Dipstick 15 mg/dl (Negative); Leukocyte Esterase-Dipstick Negative /ul (Negative); Nitrite-Dipstick Negative (Negative); Occult Blood-Urine 10 /ul (Negative); Protein-Dipstick 100 mg/dl (Negative); Urine Clarity Clear (Clear); Urine Urobilinogen Normal (Normal)
[2022-07-06 17:14] LABS: Urine Bilirubin Dipstick 6 mg/dL (Negative)
[2022-07-06] MEDS: levoFLOXacin IV 750 MG/150 ML BAG 100 MG IV (17:18)
--- NOTE | 2022-07-06 17:56 | HP.PCM.HOS_ITS ---
HPI - General General Date of Admission: 07/06/22 Date of Service: 07/06/22 Chief Complaint: Left sided paresthesia. HPI Narrative PHILLIP ANGEL, is a 81 M who presents presents with his legs feeling weak today but also paresthesias in left upper extremity. Had been feeling okay prior to this. Because this EMS was contacted and patient was brought to the emergency room. Patient states that the paresthesias in his arm have involved now his whole arm. Initially starting from his elbow below but now to his whole arm. This is never happened before. Both his legs were weak stating that he would think what he wanted his legs to do and they would not do it. Does also have a right-sided headache behind his right eye. Is a patient that presented emergency room and underwent myriad of tests. Head CT showed chronic involutional changes, chest CT showed elevation of the right hemidiaphragm with increased markings in the posterior medial segment of the right lower lobe. Likely representing progressive atelectasis and/or early infiltrate and a CTA of the head neck that showed mild atherosclerotic plaque formation of the right in ternal carotid but less than 50% as well as a same for the left internal carotid. Patient received levofloxacin for the abnormality on the CAT scan. [facility] Medical History Diabetes High cholesterol Hypertension Hypothyroid Osteoarthritis Stroke/cerebrovascular accident Home Medications aspirin 325 mg tablet 325 mg PO DAILY@0800 HEALTH MAINTENANCE 08/20/16 [History Last Taken 07/06/22] atenolol 25 mg tablet 25 mg PO QHS BP 08/20/16 [History Last Taken 07/05/22] atorvastatin 40 mg tablet 40 mg PO QHS CHOLESTEROL 08/20/16 [History Last Taken 07/05/22] insulin glargine 100 unit/mL subcutaneous solution (Lantus U-100 Insulin) 27 unit SQ QHS DM 08/20/16 [History Last Taken 07/05/22] insulin lispro 100 unit/mL subcutaneous pen (Humalog KwikPen (U-100) Insulin) 9 unit SQ TIDCM DM 08/20/16 [History Last Taken 07/06/22] levothyroxine 75 mcg tablet 75 mcg PO DAILY THYROID 08/20/16 [History Last Taken 07/06/22] losartan 50 mg tablet (Cozaar) 50 mg PO DAILY BP 08/20/16 [History Last Taken 07/06/22] metformin 850 mg tablet 850 mg PO BIDCM DM 08/20/16 [History Last Taken 07/06/22] nitroglycerin 0.4 mg sublingual tablet 0.4 mg sublingual Q5M PRN Chest Pain 08/20/16 [History Last Taken Unknown] etodolac 400 mg tablet 400 mg PO BID PAIN 11/09/21 [History Last Taken 07/06/22] hydrochlorothiazide 12.5 mg capsule 12.5 mg PO DAILY BP 07/06/22 [History Last Taken 07/06/22] omega-3 fatty acids 1,000 mg PO DAILY SUPPLEMENT 07/06/22 [History Last Taken 07/06/22] Allergy/AdvReac Type Severity Reaction Status Date / Time iodine Allergy Swelling Verified 07/06/22 10:41 Surgical History History of appendectomy History of cholecystectomy History of tonsillectomy Social History (Updated 07/06/22 @ 17:[address] Mode Verdugo DO) Smoking Status: Never smoker alcohol intake: never substance use type: does not use ROS ROS Narrative Patient has a few teeth in his mouth. Denies any fever chills, chest pain shortness of breath. All review of systems were negative except as mentioned above in the history of present illness and the other review of systems. Vital Signs Vital Signs Vital Signs: 07/06/22 10:41 07/06/22 12:15 07/06/22 12:15 Temperature 36.2 C L Temperature Source Temporal Pulse Rate 71 65 Respiratory Rate 14 15 Respiratory Effort Normal Respiratory Pattern Normal Blood Pressure 186/109 H 164/91 H Blood Pressure Mean 134 115 Pulse Ox 97 97 Oxygen Delivery Method Room Air Room Air 07/06/22 14:31 07/06/22 15:10 07/06/22 16:29 Temperature Temperature Source Pulse Rate 142 H 73 76 Respiratory Rate 23 H 16 25 H Respiratory Effort Respiratory Pattern Blood Pressure 146/110 H 175/79 H Blood Pressure Mean 122 111 Pulse Ox 95 95 98 Oxygen Delivery Method Room Air Room Air Room Air 07/06/22 17:31 Temperature 37.0 C Temperature Source Temporal Pulse Rate 74 Respiratory Rate 18 Respiratory Effort Respiratory Pattern Blood Pressure 164/74 H Blood Pressure Mean 104 Pulse Ox 96 Oxygen Delivery Method Room Air Weight Weight: 108.862 kg Body Mass Index (BMI) 38.7 Physical Exam Const alert and no apparent distress HEENT normocephalic, head/scalp atraumatic, hearing grossly normal bilaterally and moist oral mucous membranes HEENT Narrative: Poor dentition. Eyes PERRL and EOMs intact bilaterally Neck no lymphadenopathy Resp normal respiratory effort, no retractions, no use of accessory muscles and clear to auscultation bilaterally Cardio regular rate, regular rhythm, S1 normal heart sound and S2 normal heart sound GI normal to inspection, nondistended, normoactive bowel sounds, soft to palpation, non-tender and non-distended Extremity normal to inspection Extremity Narrative: Nonpitting lower extremity edema Neuro oriented x3, CN's II-XII intact bilaterally, moves all extremities and no focal motor deficits Coordination / Balance: [id number] test normal Psych affect normal Results Lab / Micro Data Attestation: I reviewed the patient's lab results. Result Diagrams: 07/06/22 13:02 07/06/22 13:02 Labs: Laboratory Results - last 24 hr 07/06/22 13:02: WBC 11.1 H, RBC 4.97, Hgb 14.0, Hct 43.7, MCV 87.9, MCH 28.2, MCHC 32.0, RDW Std Deviation 44.6 H, RDW Coeff of Tyesha 13.8, Plt Count 256, MPV 10.3, Immature Gran % (Auto) 0.500, Neut % (Auto) 71.1 H, Lymph % (Auto) 18.1 L, [place] % (Auto) 8.8, Eos % (Auto) 1.1, Baso % (Auto) 0.4, Absolute Neuts (auto) 7.9 H, Absolute Lymphs (auto) 2.01, Nucleated RBC % 0 07/06/22 13:02: Sodium 143, Potassium 4.1, Chloride 110 H, Carbon Dioxide 27.0, Anion Gap 6, BUN 25 H, Creatinine 1.18, Estim Creat Clear Calc 43.55, Est GFR (MDRD) Af Amer 76, Est GFR (MDRD) Non-Af 63, BUN/Creatinine Ratio 21.2 H, Glucose 144 H, Calcium 9.2, Total Bilirubin 0.70, AST 19, ALT 32, Alkaline Phosphatase 113, Troponin I High Sens 14, Total Protein 6.6, Albumin 3.2, Globul in 3.4, Albumin/Globulin Ratio 0.9 07/06/22 16:27: Urine Color Yellow, Urine Clarity Clear, Urine pH 6.0, Ur Specific [place] 1.020, Urine Protein 100 H, Urine Glucose (UA) Normal, Urine Ketones 15 H, Urine Occult Blood 10 H, Urine Nitrite Negative, Urine Bilirubin 6 H, Urine Urobilinogen Normal, Ur Leukocyte Esterase Negative, Urine RBC 0 SEEN, Urine WBC 0 SEEN, Ur Squamous Epith Cells 0 SEEN, Urine Bacteria 0 SEEN, Urine Mucus 0 SEEN Micro: Microbiology 07/06/22 12:58 Nasal Secretion SARS-CoV-2 & FLU Antigen (Rapid) - Final Rhythm Strip Rhythm Strip: Sinus Rhythm Rate: 65 Ectopy: None EKG Initial EKG: Attestation: I personally reviewed and interpreted this EKG as follows: Prior EKG tracings: available for review EKG Rhythm Intrepretation: Sinus Rhythm Radiology Impression Chest X-Ray 07/06/22 13:17 IMPRESSION: Stable elevation of the right hemidiaphragm with the right basilar infiltrate and/or atelectasis which has progressed as compared to prior study. Mild increased markings at the left lung base. Electronically Signed: Ja Hernández MD at 13:49 EST , Brain CT 07/06/22 13:54 IMPRESSION: Chronic involutional changes of the brain. N.B. : The above Results were Read Back by Ja Hernández MD to Sagar Jameson and understanding confirmed on 07/06/2022 14:49:37 (ET). Electronically Signed: Ja Hernández MD at 14:51 EST , ADDENDUM: 07/06/22 1458 IMPRESSION: Chronic involutional changes of the brain. N.B. : The above Results were Read Back by Ja Hernández MD to Sagar Jameson and understanding confirmed on 07/06/2022 14:49:37 (ET). Electronically Signed: Ja Hernández MD at 14:51 EST , Chest CT 07/06/22 13:58 IMPRESSION: Elevation of the right hemidiaphragm with increased markings in the posterior medial segment of the right lower lobe. This has progressed as compared to prior study and most likely represents progressive atelectasis and/or early infiltrate. Electronically Signed: Ja Hernández MD at 14:57 EST , Head/Neck CTA 07/06/22 15:14 IMPRESSION: 1. There is mild atherosclerotic plaque formation of the origin of the right internal carotid artery with less than 50% cross sectional diameter stenosis. ALL ABOVE CRITERIA BY NASCET. 2. There is mild atherosclerotic plaque formation of the origin of the left internal carotid artery with less than 50% cross sectional diameter stenosis. ALL ABOVE CRITERIA BY NASCET. 3. There is calcified plaque formation of the right cavernous carotid artery, with a mild stenosis (less than 50%). ALL ABOVE CRITERIA BY NASCET. 4. There is calcified plaque formation of the left cavernous carotid artery, with a mild stenosis (less than 50%). ALL ABOVE CRITERIA BY NASCET. Electronically Signed: Reddy Leiva MD at 17:21 EST , ADDENDUM: 07/06/22 1733 IMPRESSION: 1. There is mild atherosclerotic plaque formation of the origin of the right internal carotid artery with less than 50% cross sectional diameter stenosis. ALL ABOVE CRITERIA BY NASCET. 2. There is mild atherosclerotic plaque formation of the origin of the left internal carotid artery with less than 50% cross sectional diameter stenosis. ALL ABOVE CRITERIA BY NASCET. 3. There is calcified plaque formation of the right cavernous carotid artery, with a mild stenosis (less than 50%). ALL ABOVE CRITERIA BY NASCET. 4. There is calcified plaque formation of the left cavernous carotid artery, with a mild stenosis (less than 50%). ALL ABOVE CRITERIA BY NASCET. N.B. : The above Results were Read Back by Redyd Leiva MD to Mai Carolina MD, and understanding confirmed on 07/06/2022 17:26:46 (ET). Electronically Signed: Reddy Leiva MD at 17:21 EST , Assessment & Plan Assessment/Plan (1) Arm paresthesia, left: PLAN: Concern is for stroke. Head CT and CTA were negative. I strongly recommended an MRI but the patient was immediately asking that he if he could refuse that. I told the patient that he could refuse it but it limits my ability to adequately care for him and I strongly encouraged him to have the MRI as I would give better visualization of his brain. I told that we could premedicate him with some Ativan but we do not do conscious sedation at this facility. He said that he would think about it. I told him I can order the MRI irregardless but it certainly would be his right to refuse that but I strongly encouraged him to have that completed. If he is unable to complete the MRI then we will perform a head CT without contrast 24 hours after his for CT. Additionally I am concerned about this possibly being radicular as he was complaining of paresthesias and pain. Some of the pain may be exacerbated due to the blood pressure cuff that was on his arm but he stated that that was actually before. So we will order an MRI of his cervical spine. Once again if he does not feel that he can do that then we will order CT of his cervical spine to evaluate for any radicular findings Continue with aspirin and atorvastatin . (2) Debility: PLAN: Both legs are weak but is muscle during those 5 out of 5 when I evaluated him. PT OT evaluate and treat (3) Atelectasis: PLAN: I do not feel this is pneumonia. Patient did receive a levofloxacin the emergency room. I am going to hold off any additional antibiotics. 's COVID-19 and influenza were negative. PLAN: Plan Chronic stable conditions * Diabetes mellitus type 2: Insulin-dependent. Continue with glargine, NovoLog and sliding scale insulin * Hypertension: Continue HCTZ. Continue with losartan * Hypothyroidism: Continue with levothyroxine VTE prophylaxis: Low jaye weight heparin. Individual at bedside, assuming the patient's son, case was discussed with him as well CODE STATUS: Addressed with the patient. Patient was to be full code. Charges/Coding Visit Charges Inpatient E&M: 65360 Init Hosp L3
[2022-07-06] MEDS: Acetaminophen 500 MG Tablet 1000 MG PO (18:00)
--- NOTE | 2022-07-06 18:29 | ECHOCS_ITS ---
Reason For Study: TIA/CVA Procedure This was a 2D Doppler, Color Flow transthoracic echocardiogram. The study was technically difficult. Contrast injection was performed. Exam performed portable in patient room. Left Ventricle Normal LV size. The estimated ejection fraction is 65 %. Normal diastology for age. No regional wall motion abnormalities noted. Right Ventricle Normal RV size. Normal systolic function. Atria Normal left atrium. Normal right atrium. No doppler evidence for ASD. Mitral Valve There is mild mitral annular calcification. There is no mitral valve stenosis. Trivial mitral valve insufficiency. Tricuspid Valve There is no tricuspid stenosis. Unable to estimate RV systolic pressure due to inadequate jet, pulmonary artery pressure probably normal. Aortic Valve Trisinus/trileaflet aortic valve. There is no aortic stenosis. No aortic valve insufficiency. Pulmonic Valve There is no pulmonic valvular stenosis. No pulmonic valve insufficiency. Great Vessels Normal aortic root. Pericardium/Pleural No pericardial effusion. Medication Diluted definity 3ml given slow IV push to enhance endocardial definition. Performed a rapid injection of agitated mix of 9 cc saline and 1cc air to assess for atrial septal defect. MMode/2D Measurements & Calculations LVIDd: 4.2 cm IVSd: 1.1 cm Ao root diam: 3.8 cm LVIDs: 3.1 cm LVPWd: 1.1 cm LA dimension: 4.5 cm FS: 25.5 % LAV(MOD-bp): 58.0 ml LVAd ap4: 38.3 cm2 SV(MOD-sp4): 94.1 ml LAV(MOD-bp) Indexed: 26.4 ml/m2 LVLd ap4: 8.7 cm LAV(MOD-sp2): 56.1 ml EDV(MOD-sp4): 145.0 ml LAV(MOD-sp4): 59.4 ml EDV(sp4-el): 143.2 ml LVAs ap4: 19.9 cm2 LVLs ap4: 6.7 cm ESV(MOD-sp4): 50.9 ml ESV(sp4-el): 50.6 ml EF(MOD-sp4): 64.9 % EF(sp4-el): 64.7 % SV(sp4-el): 92.6 ml LA A4 area: 21.1 cm2 RA A4 area: 15.6 cm2 Time Measurements MV dec time: 0.23 sec Doppler Measurements & Calculations MV E max marcio: 90.3 cm/sec Lat Peak E' Marcio: 12.0 cm/sec Med Peak E' Marcio: 7.7 cm/sec MV A max marcio: 96.8 cm/sec E/E' lat: 7.5 E/E' med: 11.7 MV E/A: 0.93 MV V2 max: 117.3 cm/sec MV P1/2t max marcio: 106.1 cm/sec Ao V2 max: 169.1 cm/sec MV max P.5 mmHg MV P1/2t: 72.8 msec Ao max P.4 mmHg MV V2 mean: 63.8 cm/sec MV mean P.9 mmHg MV dec slope: 427.1 cm/sec2 MV V2 VTI: 39.0 cm MVA(P1/2t): 3.0 cm2 LV V1 max: 127.9 cm/sec PA V2 max: 113.1 cm/sec LV V1 max P.5 mmHg LV V1 mean P.6 mmHg LV V1 mean: 90.4 cm/sec LV V1 VTI: 27.1 cm ECHO/Echo Complete W/ Contrast Interpretation Summary The estimated ejection fraction is 65 %. Trivial mitral valve insufficiency. Ordering Physician: Mode Verdugo Referring Physician: VENKATESH WHITNEY Performed By: Shahbaz Browne RCS
[2022-07-06 20:16] LABS: Troponin-I HS 22 pg/mL (3.0-78.0)
[2022-07-06] MEDS: traMADol 50 MG Tablet PO (20:55)
[2022-07-06 21:40] LABS: Bedside Glucose 208 mg/dL (74-106)
[2022-07-06] MEDS: Atorvastatin Calcium 40 MG Tablet PO (22:29)
[2022-07-06] MEDS: Atenolol 25 MG Tablet PO (22:30)
[2022-07-06] MEDS: Etodolac 200 MG Capsule 400 MG PO (22:30)
--- NOTE | 2022-07-06 23:15 | NURSING ---
pt found to have lowered head of bed all the way down and knees up. Pt heartrate 130, respirations 22, and SPO2 82% on RA, face was red and pt was diaphoretic. Pt was repositioned to the upright sitting position and placed on 4L NC. Pt blood sugar was obtained and was 207. No change in NIH score, although patient scoring on different items. Please see NIH scoring for full overview. Full set of vitals were then obtained and patient heartrate came down to 89 and patient sating at 95% on 4L NC. pt resting comfortably now and agreed to eating some jello.
--- NOTE | 2022-07-06 23:49 | RAD_ITS ---
EXAM: XR CHEST, 1 VIEW CLINICAL INDICATION: patient needed place on O2 from RA TECHNIQUE: Frontal view of the chest. This report was created using [employer] report generation technology. COMPARISON: July 06, 2022 at 1:28 PM, November 09, 2021. FINDINGS: LUNGS AND PLEURAL SPACES: Stable moderate elevation of the right hemidiaphragm and mild right basilar atelectasis compared to exams back to November 09, 2021. HEART: Normal to borderline heart size. Mildly prominent perihilar vessels appears stable compared to prior exams. MEDIASTINUM: Central airways and mediastinal contour are unremarkable. BONES/JOINTS: Postoperative changes of the right humeral head again noted. SOFT TISSUES: Unremarkable. RAD/Chest 1 View (Portable) IMPRESSION: Stable chest. Elevated right hemidiaphragm with adjacent atelectasis. Electronically Signed: Juliet Randall MD at 1:34 EST ,
[2022-07-07] VITALS (13 sets, daily range): BP systolic 128–161; BP diastolic 58–81; PULSE 61–77; RESP 14–18; TEMP 36.5–36.8; O2SAT 93–97
[2022-07-07 00:36] LABS: Bedside Glucose 207 mg/dL (74-106)
[2022-07-07 05:54] LABS: Absolute Lymphocyte Count 1.44 X10^3/uL (0.83-4.51); Absolute Neutrophil Count 9.3 X10^3/uL (2.0-7.7); Basophil# 0.01 X10^3/uL; Basophil% 0.1 % (0-1); Hemoglobin 13.8 g/dL (13.0-16.5); Lymphocyte # 1.44 X10^3/ul (0.83-4.51); Lymphocyte % 12.9 % (19-41); Mean Corp Hgb Conc 32.9 g/dL (32-36); Mean Corpuscular Hgb 28.3 pg (27.0-32.0); Mean Corpuscular Volume 86.2 fL (80-94); Mean Platelet Vol. 10.4 fl (6.2-12.0); Monocyte# 0.26 X10^3/uL; Monocyte% 2.3 % (0-10); NRBC Flagged by Analyzer 0 % (0-5); Neutrophil # 9.34 X10^3/uL (2.7-7.7); Platelet Count 267 K/mm3 (150-450); RBC Distribution Width CV 13.5 % (11.6-14.6); RBC Distribution Width SD 42.5 fl (35.1-43.9); Red Blood Count 4.87 M/mm3 (4.6-6.2); White Blood Count 11.1 K/mm3 (4.4-11.0)
[2022-07-07 06:32] LABS: Anion Gap 9 (5-15); BUN 31 mg/dL (7-18); BUN/Creat Ratio 26.1 RATIO (10-20); Calcium,Total 8.9 mg/dL (8.5-10.1); Chloride 105 mmol/L (98-107); Cholesterol 114 mg/dL (200); Creatinine, Serum 1.19 mg/dL (0.70-1.30); EST Glomerular Filtration Rate 62 mL/min (>60); Est Glom Filt Rate - Afr Amer 75 mL/min (>60); Estimated Creatinine Clearance 44.75 ml/min; Glucose 269 mg/dL (74-106); High Density Lipoprotein 49 mg/dL; Potassium 4.3 mmol/L (3.5-5.1); Sodium Level 138 mmol/L (136-145); Triglycerides 68 mg/dL; Very Low Density Lipoprotein 14 mg/dL (5-40)
[2022-07-07] MEDS: Levothyroxine 75 MCG Tablet PO (07:03)
[2022-07-07 08:25] LABS: Bedside Glucose 259 mg/dL (74-106)
--- NOTE | 2022-07-07 09:00 | MRI_ITS ---
HISTORY: left sided paresthesia. TECHNIQUE: Multiplanar and multisequence MR images of the brain were obtained without contrast. 233 images. COMPARISON: CT prior day. FINDINGS: Motion artifact lowers the sensitivity of examination. BRAIN PARENCHYMA: Mild foci and small zones of increased T2 FLAIR signal in the bilateral cerebral white matter. No abnormal focus of restricted diffusion. No acute intracranial hemorrhage identified. CSF SPACES: Generalized volume loss. No significant midline shift or other mass effect.No extra-axial fluid collection. VASCULAR SYSTEM: Major intracranial flow voids are maintained. PARANASAL SINUSES AND MASTOID AIR CELLS: Right maxillary sinus mucosal thickening. ORBITS: Bilateral lens resections. MRI/Brain without Contrast IMPRESSION: No evidence for acute infarct. Chronic involutional and white matter changes. Electronically Signed: Chiquita Cardenas MD at 13:10 EST ,
[2022-07-07] MEDS: Etodolac 200 MG Capsule 400 MG PO ×2 (09:05→21:03)
[2022-07-07] MEDS: Enoxaparin 40 MG/0.4 ML Syringe SC (09:05)
[2022-07-07] MEDS: hydroCHLOROthiazide 12.5mg 12.5 MG PO (09:05)
[2022-07-07] MEDS: Aspirin 325 MG Tablet PO (09:05)
[2022-07-07] MEDS: Insulin Lispro 100 UNIT/ML INSULN.PEN SC ×3 (09:07→16:56)
[2022-07-07] MEDS: Insulin Lispro 100 UNIT/ML INSULN.PEN 9 UNIT SC ×3 (09:07→16:56)
--- NOTE | 2022-07-07 09:16 | PN.HOSP_ITS ---
Subjective Subjective Further history from yesterday, patient legs were weak and then he fell and caught on the floor for roughly about 10 minutes before someone can come help him. After being on the floor, he noticed the paresthesias and then pain in his arm. The paresthesias and pain have since resolved. He was able to have an MRI of his brain but was unable to do an MRI of his neck due to claustrophobia. Objective Data Objective Data Vital Signs: Vital Signs Temp Pulse Resp BP Pulse Ox O2 Del Method O2 Flow Rate 36.7 C 76 18 161/75 H 95 Room Air 2 07/07/22 07:08 07/07/22 07:08 07/07/22 07:08 07/07/22 07:08 07/07/22 07:08 07/07/22 07:20 07/07/22 03:23 Oxygen Flow Rate (L/min) 2 Oxygen Delivery Method Room Air Weight: 113.5 kg Body Mass Index (BMI) 39.2 Intake & Output: Intake and Output for Last 24 Hours 07/05/22 07/06/22 07/07/22 23:59 23:59 23:59 Intake Total 650 / 650 Output Total 200 / 200 Balance 650 / 650 -200 / -200 Lab / Micro Data Result Diagrams: 07/07/22 05:45 07/07/22 05:45 Labs: Laboratory Results - last 24 hr 07/06/22 13:02: WBC 11.1 H, RBC 4.97, Hgb 14.0, Hct 43.7, MCV 87.9, MCH 28.2, MCHC 32.0, RDW Std Deviation 44.6 H, RDW Coeff of Tyesha 13.8, Plt Count 256, MPV 10.3, Immature Gran % (Auto) 0.500, Neut % (Auto) 71.1 H, Lymph % (Auto) 18.1 L, [place] % (Auto) 8.8, Eos % (Auto) 1.1, Baso % (Auto) 0.4, Absolute Neuts (auto) 7.9 H, Absolute Lymphs (auto) 2.01, Nucleated RBC % 0 07/06/22 13:02: Sodium 143, Potassium 4.1, Chloride 110 H, Carbon Dioxide 27.0, Anion Gap 6, BUN 25 H, Creatinine 1.18, Estim Creat Clear Calc 43.55, Est GFR (MDRD) Af Amer 76, Est GFR (MDRD) Non-Af 63, BUN/Creatinine Ratio 21.2 H, Glucose 144 H, Calcium 9.2, Total Bilirubin 0.70, AST 19, ALT 32, Alkaline Phosphatase 113, Troponin I High Sens 14, Total Protein 6.6, Albumin 3.2, Globulin 3.4, Albumin/Globulin Ratio 0.9 07/06/22 16:27: Urine Color Yellow, Urine Clarity Clear, Urine pH 6.0, Ur Specific [place] 1.020, Urine Protein 100 H, Urine Glucose (UA) Normal, Urine Ketones 15 H, Urine Occult Blood 10 H, Urine Nitrite Negative, Urine Bilirubin 6 H, Urine Urobilinogen Normal, Ur Leukocyte Esterase Negative, Urine RBC 0 SEEN, Urine WBC 0 SEEN, Ur Squamous Epith Cells 0 SEEN, Urine Bacteria 0 SEEN, Urine Mucus 0 SEEN 07/06/22 19:19: Troponin I High Sens 22 07/06/22 21:17: POC Glucose 208 H 07/06/22 23:18: POC Glucose 207 H 07/07/22 05:45: WBC 11.1 H, RBC 4.87, Hgb 13.8, Hct 42.0, MCV 86.2, MCH 28.3, MCHC 32.9, RDW Std Deviation 42.5, RDW Coeff of Tyesha 13.5, Plt Count 267, MPV 10.4, Immature Gran % (Auto) 0.700, Neut % (Auto) 84.0 H, Lymph % (Auto) 12.9 L, Cheatham % (Auto) 2.3, Eos % (Auto) 0.0, Baso % (Auto) 0.1, Absolute Neuts (auto) 9.3 H, Absolute Lymphs (auto) 1.44, Nucleated RBC % 0 07/07/22 05:45: Sodium 138, Potassium 4.3, Chloride 105, Carbon Dioxide 24.0, An ion Gap 9, BUN 31 H, Creatinine 1.19, Estim Creat Clear Calc 44.75, Est GFR ( MDRD) Af Amer 75, Est GFR (MDRD) Non-Af 62, BUN/Creatinine Ratio 26.1 H, Glucose 269 H, Calcium 8.9, Triglycerides 68, Cholesterol 114, LDL Cholesterol 51, VLDL Cholesterol 14, HDL Cholesterol 49 07/07/22 08:04: POC Glucose 259 H Micro: Microbiology 07/06/22 12:58 Nasal Secretion SARS-CoV-2 & FLU Antigen (Rapid) - Final Radiography Diagnostic Testing: Radiology Impression Chest X-Ray 07/06/22 13:17 IMPRESSION: Stable elevation of the right hemidiaphragm with the right basilar infiltrate and/or atelectasis which has progressed as compared to prior study. Mild increased markings at the left lung base. Electronically Signed: Ja Hernández MD at 13:49 EST , Brain CT 07/06/22 13:54 IMPRESSION: Chronic involutional changes of the brain. N.B. : The above Results were Read Back by Ja Hernández MD to Sagar Jameson and understanding confirmed on 07/06/2022 14:49:37 (ET). Electronically Signed: Ja Hernández MD at 14:51 EST , ADDENDUM: 07/06/22 1458 IMPRESSION: Chronic involutional changes of the brain. N.B. : The above Results were Read Back by Ja Hernández MD to Sagar Jameson and understanding confirmed on 07/06/2022 14:49:37 (ET). Electronically Signed: Ja Hernández MD at 14:51 EST , Chest CT 07/06/22 13:58 IMPRESSION: Elevation of the right hemidiaphragm with increased markings in the posterior medial segment of the right lower lobe. This has progressed as compared to prior study and most likely represents progressive atelectasis and/or early infiltrate. Electronically Signed: Ja Hernández MD at 14:57 EST , Head/Neck CTA 07/06/22 15:14 IMPRESSION: 1. There is mild atherosclerotic plaque formation of the origin of the right internal carotid artery with less than 50% cross sectional diameter stenosis. ALL ABOVE CRITERIA BY NASCET. 2. There is mild atherosclerotic plaque formation of the origin of the left internal carotid artery with less than 50% cross sectional diameter stenosis. ALL ABOVE CRITERIA BY NASCET. 3. There is calcified plaque formation of the right cavernous carotid artery, with a mild stenosis (less than 50%). ALL ABOVE CRITERIA BY NASCET. 4. There is calcified plaque formation of the left cavernous carotid artery, with a mild stenosis (less than 50%). ALL ABOVE CRITERIA BY NASCET. Electronically Signed: Reddy Leiva MD at 17:21 EST , ADDENDUM: 07/06/22 1733 IMPRESSION: 1. There is mild atherosclerotic plaque formation of the origin of the right internal carotid artery with less than 50% cross sectional diameter stenosis. ALL ABOVE CRITERIA BY NASCET. 2. There is mild atherosclerotic plaque formation of the origin of the left internal carotid artery with less than 50% cross sectional diameter stenosis. ALL ABOVE CRITERIA BY NASCET. 3. There is calcified plaque formation of the right cavernous carotid artery, with a mild stenosis (less than 50%). ALL ABOVE CRITERIA BY NASCET. 4. There is calcified plaque formation of the left cavernous carotid artery, with a mild stenosis (less than 50%). ALL ABOVE CRITERIA BY NASCET. N.B. : The above Results were Read Back by Reddy Leiva MD to Mai Carolina MD, and understanding confirmed on 07/06/2022 17:26:46 (ET). Electronically Signed: Reddy Leiva MD at 17:21 EST , Chest X-Ray 07/06/22 23:49 IMPRESSION: Stable chest. Elevated right hemidiaphragm with adjacent atelectasis. Electronically Signed: Juliet Randall MD at 1:34 EST , Rhythm Strip Rhythm Strip: Sinus Rhythm Rate: 65 Ectopy: None Physical Exam Const alert and no apparent distress HEENT head/scalp atraumatic and moist oral mucous membranes Extremity normal to inspection Neuro Sensorium / Orientation: awake and alert Motor Exam: strength 5/5 throughout Assessment & Plan Assessment/Plan (1) Arm paresthesia, left: PLAN: Concern is for stroke. Head CT and CTA were negative. I strongly recommended an MRI but the patient was immediately asking that he if he could refuse that. I told the patient that he could refuse it but it limits my ability to adequately care for him and I strongly encouraged him to have the MRI as I would give better visualization of his brain. I told that we could premedicate him with some Ativan but we do not do conscious sedation at this f acility. He said that he would think about it. I told him I can order the MRI irregardless but it certainly would be his right to refuse that but I strongly encouraged him to have that completed. If he is unable to complete the MRI then we will perform a head CT without contrast 24 hours after his for CT. Additionally I am concerned about this possibly being radicular as he was complaining of paresthesias and pain. Some of the pain may be exacerbated due to the blood pressure cuff that was on his arm but he stated that that was actually before. So we will order an MRI of his cervical spine. Once again if he does not feel that he can do that then we will order CT of his cervical spine to evaluate for any radicular findings Continue with aspirin and atorvastatin Further history is become available where is more in both of his arms began with paresthesias but after he had fallen. MRI of the brain is negative for any stroke. I do not feel that an MRI of his cervical spine is necessary at this time nor would he even tolerated. And I thus do not feel a CT of the cervical spine is necessary as his strength is resolved and symptoms are resolved. (2) Debility: PLAN: Both legs are weak but is muscle during those 5 out of 5 when I evaluated him. PT OT evaluate and treat Still weak. PT OT evaluate and treat. Patient is interested in going to [place] as his is currently there. (3) Atelectasis: PLAN: I do not feel this is pneumonia. Patient did receive a levofloxacin the emergency room. I am going to hold off any additional antibiotics. COVID-19 and influenza were negative. PLAN: Plan Chronic stable conditions * Diabetes mellitus type 2: Insulin-dependent. Continue with glargine, NovoLog and sliding scale insulin * Hypertension: Continue HCTZ. Continue with losartan * Hypothyroidism: Continue with levothyroxine VTE prophylaxis: Low jaye weight heparin. Individual at bedside, assuming the patient's son, case was discussed with him as well CODE STATUS: Addressed with the patient. Patient was to be full code. Case discussed with the patient's son at bedside. Charges/Coding Visit Charges Inpatient E&M: 93420 [facility] Hosp L1
[2022-07-07] MEDS: traMADol 50 MG Tablet PO (10:58)
[2022-07-07] MEDS: LORazepam 2 MG/ML Syringe IV (11:35)
[2022-07-07] MEDS: 0.9% Saline Lock 10 ML Syringe IV (11:35)
[2022-07-07 13:25] LABS: Bedside Glucose 221 mg/dL (74-106)
--- NOTE | 2022-07-07 14:18 | CHAPLAIN ---
Type of Pastoral Visit _x__ Initial Visit ___ Follow-up Visit ___ On-call Visit ___ General Patient Visit ___ Spiritual Assessment ___ Family Conference ___ Bereavement ___ Rapid Response ___ Code Blue ___ Other (describe below) Pastoral Care Referral From ___ Patient _x__ Family ___ Nurse ___ Physician ___ Endocrinologist ___ Illuminating Engineer ___ Other (describe below) Sacrament/Intervention _x__ Active listening ___ Anointing ___ Rastafari ___ Bereavement ___ Communion ___ Ann exploration ___ ___ Life review _x__ Prayer ___ Reconciliation ___ Sacrament of Sick _x__ Supportive presence ___ Wedding ___ Other (describe below) Pastoral Comments 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
[2022-07-07 17:15] LABS: Bedside Glucose 240 mg/dL (74-106)
[2022-07-07] MEDS: Atorvastatin Calcium 40 MG Tablet PO (21:03)
[2022-07-07] MEDS: Atenolol 25 MG Tablet PO (21:03)
[2022-07-07] MEDS: Insulin Glargine-YFGN 100 UNIT/ML Pen 27 UNIT SC (21:09)
[2022-07-07 21:55] LABS: Bedside Glucose 185 mg/dL (74-106)
[2022-07-08 03:00] VITALS: BP 157/77; PULSE 72; RESP 16; TEMP 36.9; O2SAT 93
[2022-07-08] MEDS: Levothyroxine 75 MCG Tablet PO (06:52)
[2022-07-08 07:34] VITALS: O2SAT 96
[2022-07-08 08:02] VITALS: BP 151/81; PULSE 60; RESP 18; TEMP 36.6; O2SAT 93
[2022-07-08] MEDS: Insulin Lispro 100 UNIT/ML INSULN.PEN 9 UNIT SC ×3 (08:13→17:07)
[2022-07-08] MEDS: Insulin Lispro 100 UNIT/ML INSULN.PEN SC ×3 (08:14→17:08)
[2022-07-08] MEDS: Aspirin 325 MG Tablet PO (08:15)
[2022-07-08 08:36] LABS: Bedside Glucose 282 mg/dL (74-106)
[2022-07-08 08:40] LABS: Bedside Glucose 179 mg/dL (74-106)
--- NOTE | 2022-07-08 09:23 | PN.HOSP_ITS ---
Subjective Subjective Feeling better. No events. Objective Data Objective Data Vital Signs: Vital Signs Temp Pulse Resp BP Pulse Ox O2 Del Method O2 Flow Rate 36.6 C 60 18 151/81 H 93 Room Air 2 07/08/22 08:02 07/08/22 08:02 07/08/22 08:02 07/08/22 08:02 07/08/22 08:02 07/08/22 08:06 07/07/22 03:23 Oxygen Flow Rate (L/min) 2 Oxygen Delivery Method Room Air Weight: 113.5 kg Body Mass Index (BMI) 39.2 Intake & Output: Intake and Output for Last 24 Hours 07/06/22 07/07/22 07/08/22 23:59 23:59 23:59 Intake Total 650 / 650 Output Total 200 / 500 300 / 300 Balance 650 / 650 -200 / -500 -300 / -300 Lab / Micro Data Result Diagrams: 07/07/22 05:45 07/07/22 05:45 Labs: Laboratory Results - last 24 hr 07/06/22 15:02: POC Glucose 179 H 07/07/22 13:07: POC Glucose 221 H 07/07/22 16:55: POC Glucose 240 H 07/07/22 21:08: POC Glucose 185 H 07/08/22 08:01: POC Glucose 282 H Micro: Microbiology 07/06/22 12:58 Nasal Secretion SARS-CoV-2 & FLU Antigen (Rapid) - Final Radiography Diagnostic Testing: Radiology Impression Echocardiogram 07/06/22 18:29 Interpretation Summary The estimated ejection fraction is 65 %. Trivial mitral valve insufficiency. Ordering Physician: Mode Verdugo Referring Physician: VENKATESH WHITNEY Performed By: Shahbaz Browne RCS Brain MRI 07/07/22 09:00 IMPRESSION: No evidence for acute infarct. Chronic involutional and white matter changes. Electronically Signed: Chiquita Cardenas MD at 13:10 EST , Rhythm Strip Rhythm Strip: Sinus Rhythm Rate: 65 Ectopy: None Physical Exam Const alert and no apparent distress HEENT head/scalp atraumatic Extremity Extremity Narrative: Trace lower extremity edema Neuro Sensorium / Orientation: awake and alert Motor Exam: strength 5/5 throughout Psych affect normal Assessment & Plan Assessment/Plan (1) Arm paresthesia, left: PLAN: Concern is for stroke. Head CT and CTA were negative. I strongly recommended an MRI but the patient was immediately asking that he if he could refuse that. I told the patient that he could refuse it but it limits my ability to adequately care for him and I strongly encouraged him to have the MRI as I would give better visualization of his brain. I told that we could premedicate him with some Ativan but we do not do conscious sedation at this facility. He said that he would think about it. I told him I can order the MRI irregardless but it certainly would be his right to refuse that but I strongly encouraged him to have that completed. If he is unable to complete the MRI then we will perform a head CT without contrast 24 hours after his for CT. Additionally I am concerned about this possibly being radicular as he was complaining of paresthesias and pain. Some of the pain may be exacerbated due to the blood pressure cuff that was on his arm but he stated that that was actually before. So we will order an MRI of his cervical spine. Once again if he does not feel that he can do that then we will order CT of his cervical spine to evaluate for any radicular findings Continue with aspirin and atorvastatin Further history is become available where is more in both of his arms began with paresthesias but after he had fallen. MRI of the brain is negative for any stroke. I do not feel that an MRI of his cervical spine is necessary at this time nor would he even tolerated. And I thus do not feel a CT of the cervical spine is necessary as his strength is resolved and symptoms are resolved. (2) Debility: PLAN: Both legs are weak but is muscle during those 5 out of 5 when I evaluated him. PT OT evaluate and treat Still weak. PT OT evaluate and treat. Patient is interested in going to [place] as his is currently there. (3) Atelectasis: PLAN: I do not feel this is pneumonia. Patient did receive a levofloxacin the emergency room. I am going to hold off any additional antibiotics. COVID-19 and influenza were negative. (4) Diabetes: PLAN: Uncontrolled check A1c increase glargine from 27 to 30 continue prandial insulin at 9 PLAN: Plan Chronic stable conditions * Hypertension: Continue HCTZ. Continue with losartan * Hypothyroidism: Continue with levothyroxine VTE prophylaxis: Low jaye weight heparin. CODE STATUS: Addressed with the patient. Patient was to be full code. Case discussed with the patient's son at bedside. Disposition: Pending insurance approval. Plan is for patient to go to [facility]. Charges/Coding Visit Charges Inpatient E&M: 15905 [facility] Hosp L1
[2022-07-08] MEDS: Losartan Potassium 50 MG Tablet PO (10:47)
[2022-07-08] MEDS: Etodolac 200 MG Capsule 400 MG PO ×2 (10:48→21:24)
[2022-07-08] MEDS: Enoxaparin 40 MG/0.4 ML Syringe SC (10:48)
[2022-07-08] MEDS: hydroCHLOROthiazide 12.5mg 12.5 MG PO (10:48)
--- NOTE | 2022-07-08 11:10 | CASEMGMT ---
RN NGUYEN Face to Face with patient for initial transition planning/care coordination assessment. RN CM introduced self and role at [facility]. Patient sitting in chair, alert and oriented, son and DIL at bedside. Patient willing to participate in assessment and is able to answer all questions appropriately. Care providers, pharmacy, and demographics verified. Patient wishes to discharge home. Reviewed therapy notes with patient and family and therapy is recommending SNF for additional rehab. A list of HHC and SNF providers including quality and resource use data and consistent with the patient?s preferred geographical region, medical needs, and insurance network were provided from the [employer] Guide. Patient and family state they prefer [facility]. RN NGUYEN updated SW. Patient states he has no further needs or concerns at this time. CM to follow for discharge planning needs that may arise. PCP: Gina Specialists: none [facility]erred Pharm[facility] Prescription Benefit: yes Living Will/HPOA: yes, son Demetris Archer LNOK: son, VIKAS, daughter, is currently at [facility] Living Arrangements: Patient is living alone in a 2 story home with bed and bath on first floor. Patient has ramp to enter the home. Patient was independent at home prior to hospitalization. Transportation: self, son DME/HHC: Patient states he has shower chair, cane, rollator, grab bars. Patient denies previous HHC or SNF. Disposition Plan: Patient to discharge to SNF pending acceptance. Deya IRVIN, RN, CM
[2022-07-08 12:30] LABS: Bedside Glucose 391 mg/dL (74-106)
[2022-07-08 12:30] LABS: Bedside Glucose 363 mg/dL (74-106)
--- NOTE | 2022-07-08 13:24 | CASEMGMT ---
Per RN CM patient and family would like patient to go to [facility] as patient's is there currently. SW sent referral to [facility] via [facility]. Await response. Plan: d/c possibly to [facility] pending their acceptance. Debra Centeno WEIR FISHERMAN GUSTABO
[2022-07-08 14:25] VITALS: BP 148/68; PULSE 65; RESP 18; TEMP 36.6; O2SAT 94
--- NOTE | 2022-07-08 16:35 | CASEMGMT ---
RN CM updated by son that patient's first choice is Rehab unit/TCU and 2nd WVM. SW updated.
[2022-07-08 16:46] LABS: Bedside Glucose 316 mg/dL (74-106)
--- NOTE | 2022-07-08 17:26 | CASEMGMT ---
ROSIO did hear back from [facility] and they can accept patient. However, ROSIO was informed that patient's first choice is now [facility] Inpatient Rehab vs TCU. ROSIO sent a referral to Taisha with Rehab/TCU. However, she has left for the day. Monday ROSIO will follow up. ROSIO notified patient. Plan: [facility] TCU vs Inpatient Rehab Debra MONTEJO
[2022-07-08 18:27] VITALS: BP 129/62; PULSE 61; RESP 18; TEMP 36.6; O2SAT 94
[2022-07-08 21:23] VITALS: BP 150/67; PULSE 66; RESP 16; TEMP 36.6; O2SAT 94
[2022-07-08] MEDS: Atorvastatin Calcium 40 MG Tablet PO (21:24)
[2022-07-08] MEDS: Atenolol 25 MG Tablet PO (21:25)
[2022-07-08] MEDS: Insulin Glargine-YFGN 100 UNIT/ML Pen 30 UNIT SC (21:33)
[2022-07-08 23:51] LABS: Bedside Glucose 354 mg/dL (74-106)
[2022-07-09 03:37] VITALS: BP 146/67; PULSE 54; RESP 16; TEMP 36.6; O2SAT 96
[2022-07-09] MEDS: Levothyroxine 75 MCG Tablet PO (06:40)
[2022-07-09 07:25] LABS: Bedside Glucose 235 mg/dL (74-106)
[2022-07-09 07:45] VITALS: O2SAT 93
[2022-07-09] MEDS: Insulin Lispro 100 UNIT/ML INSULN.PEN SC ×3 (08:24→18:13)
[2022-07-09] MEDS: Insulin Lispro 100 UNIT/ML INSULN.PEN 9 UNIT SC ×3 (08:24→18:12)
[2022-07-09] MEDS: Aspirin 325 MG Tablet PO (08:26)
--- NOTE | 2022-07-09 09:05 | PCM.PN.HOSP ---
Subjective Subjective Complains of dropping things, such as paper, with his hands. Feels that his dexterity is off. Objective Data Objective Data Vital Signs: Vital Signs Temp Pulse Resp BP Pulse Ox O2 Del Method O2 Flow Rate 36.6 C 54 L 16 146/67 H 93 Room Air 2 07/09/22 03:37 07/09/22 03:37 07/09/22 03:37 07/09/22 03:37 07/09/22 07:45 07/09/22 07:45 07/07/22 03:23 Oxygen Flow Rate (L/min) 2 Oxygen Delivery Method Room Air Weight: 113.5 kg Body Mass Index (BMI) 39.2 Intake & Output: Intake and Output for Last 24 Hours 07/07/22 07/08/22 07/09/22 23:59 23:59 23:59 Intake Total 750 / 750 Output Total 200 / 500 300 / 300 1100 / 1100 Balance -200 / -500 450 / 450 -1100 / -1100 Lab / Micro Data Result Diagrams: 07/07/22 05:45 07/07/22 05:45 Labs: Laboratory Results - last 24 hr 07/08/22 11:22: POC Glucose 391 H 07/08/22 11:27: POC Glucose 363 H 07/08/22 16:23: POC Glucose 316 H 07/08/22 21:32: POC Glucose 354 H 07/09/22 06:41: POC Glucose 235 H Micro: Microbiology 07/06/22 12:58 Nasal Secretion SARS-CoV-2 & FLU Antigen (Rapid) - Final Rhythm Strip Rhythm Strip: Sinus Rhythm Rate: 65 Ectopy: None Physical Exam Const alert and no apparent distress Resp normal respiratory effort and no retractions Cardio regular rate, regular rhythm, S1 normal heart sound and S2 normal heart sound GI normal to inspection, nondistended, normoactive bowel sounds and soft to palpation Neuro Neuro Narrative: Muscle strength 5-5 in upper and lower extremities. Extension of his fingers was well intact as well as hand grasp. Assessment & Plan Assessment/Plan (1) Arm paresthesia, left: PLAN: Concern is for stroke. Head CT and CTA were negative. I strongly recommended an MRI but the patient was immediately asking that he if he could refuse that. I told the patient that he could refuse it but it limits my ability to adequately care for him and I strongly encouraged him to have the MRI as I would give better visualization of his brain. I told that we could premedicate him with some Ativan but we do not do conscious sedation at this facility. He said that he would think about it. I told him [facility] but it certainly would be his right to refuse that but I strongly encouraged him to have that completed. If he is unable to complete the MRI then we will perform a head CT without contrast 24 hours after his for CT. Additionally I am concerned about this possibly being radicular as he was complaining of paresthesias and pain. Some of the pain may be exacerbated due to the blood pressure cuff that was on his arm but he stated that that was actually before. So we will order an MRI of his cervical spine. Once again if he does not feel that he can do that then we will order CT of his cervical spine to evaluate for any radicular findings Continue with aspirin and atorvastatin Further history is become available where is more in both of his arms began with paresthesias but after he had fallen. MRI of the brain is negative for any stroke. I do not feel that an MRI of his cervical spine is necessary at this time nor would he even tolerated. And I thus do not feel a CT of the cervical spine is necessary as his strength is resolved and symptoms are resolved. CAT scan showed significant arthritis but no clear spinal cord nor nerve root impingement. Patient would not be able to tolerate a closed MRI without conscious sedation which is not performed at this facility. Patient can have an outpatient MRI if necessary down the road. I do not notice any appreciable weakness in his upper extremities at this time. (2) Debility: PLAN: Both legs are weak but is muscle during those 5 out of 5 when I evaluated him. PT OT evaluate and treat Still weak. PT OT evaluate and treat. Patient is interested in going to [place] as his is currently there. (3) Atelectasis: PLAN: I do not feel this is pneumonia. Patient did receive a levofloxacin the emergency room. I am going to hold off any additional antibiotics. COVID-19 and influenza were negative. (4) Diabetes: PLAN: Uncontrolled check A1c increase glargine to 40 continue prandial insulin at 9 PLAN: Plan Chronic stable conditions Hypertension: Continue HCTZ. Continue with losartan Hypothyroidism: Continue with levothyroxine VTE prophylaxis: Low jaye weight heparin. CODE STATUS: Addressed with the patient. Patient was to be full code. Case discussed with the patient's son at bedside. Disposition: Pending insurance approval. Plan is for patient to go to transitional care unit on the eighth. Charges/Coding Visit Charges Inpatient E&M: 97712 Subs Hosp L2
[2022-07-09 09:41] LABS: Hemoglobin A1c 7.6 % (3.8-5.6)
[2022-07-09 09:43] VITALS: BP 145/64; PULSE 66; RESP 17; TEMP 36.6; O2SAT 94
[2022-07-09] MEDS: Enoxaparin 40 MG/0.4 ML Syringe SC (09:46)
[2022-07-09] MEDS: hydroCHLOROthiazide 12.5mg 12.5 MG PO (09:46)
[2022-07-09] MEDS: Etodolac 200 MG Capsule 400 MG PO ×2 (09:46→21:08)
[2022-07-09] MEDS: Losartan Potassium 50 MG Tablet PO (09:46)
--- NOTE | 2022-07-09 10:04 | CT_ITS ---
INDICATION: hand paresthesias EXAMINATION: CT CERVICAL SPINE - CT Spine Cervical W/O Contrast Injection TECHNIQUE: Helically acquired images were obtained of the cervical spine. 2D reformatted images were reviewed. A radiation dose optimization technique was used for this scan. IV Contrast dosage and agent: None. COMPARISON: None. FINDINGS: VERTEBRAE: No fracture or traumatic subluxation. No discrete lytic or blastic abnormality. Streaking of the cervical spine. Alignment of the vertebral bodies are unremarkable. Normal craniocervical junction and cervicothoracic junction. DISCS and SPINAL CANAL: Severe disc space narrowing of C4-C5 and C5-C6. Degenerative changes of the atlantoaxial joint. Posterior discogenic osteophyte formation at the level of C4-C5 with severe narrowing of the central spinal canal. Mild narrowing of the right neural foramina. Broad-based posterior discogenic osteophyte formation at the level of C5-C6 with moderate spinal canal stenosis and bilateral neural foraminal stenosis. NECK SOFT TISSUES: No prevertebral soft tissue swelling. Extensive atherosclerotic calcifications of the carotid arteries bilaterally with probable significant stenosis. LUNG APICES: No evidence of pneumothorax. CT/Spine Cervical without Contras IMPRESSION: 1. 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 2. Straightening of the cervical spine which could be due to muscle spasm. 3. If symptoms persist, MRI of the cervical spine is recommended. 4. 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 Electronically Signed: Joaquin Perera MD at 14:45 EST ,
--- NOTE | 2022-07-09 11:15 | CASEMGMT ---
Social Work SW reached out to TCU/Rehab to see if pt could go to TCU or rehab today or tomorrow. Admissions looking into it and to let SW know. JIHAN Diego
[2022-07-09 13:01] LABS: Bedside Glucose 286 mg/dL (74-106)
--- NOTE | 2022-07-09 14:13 | CASEMGMT ---
Social Work TCU can take pt tomorrow. SW let physician know, he will likely discharge pt tomorrow. SW let pt know and called pt's son Demetris sams/pt's permission to let him know, both in agreement. SW left a message for Kadie at [facility] to let her know that will be going to [facility]CU instead of [facility]. Green sheet on chart in anticipation of discharge tomorrow. JIHAN Diego
--- NOTE | 2022-07-09 14:52 | CASEMGMT ---
Social Work SW met w/pt in regard to discharge plan. Pt states she needs to go to SNF as she cannot manage the drains and tubes she has after surgery herself. SW provided to pt a list of group home facilities in pt's preferred geographic area, complete with quality and resource use data, and can take her insurance. Pt has been to TCU before and would like to go there if possible. SW explained there may not be beds. SW reviewed the list w/pt briefly. She wants to speak w/her daughters about other options. SW asked her to pick 2-3 more options. She states her daughters will be here tomorrow, and they will review the list then. SW explained will have SW check in w/her on Monday to see where she would like a referral sent. SW did leave a message on the TCU referral phone in the event a bed opens up. SW will continue to follow. JIHAN Diego
[2022-07-09 15:57] VITALS: BP 149/74; PULSE 59; RESP 18; TEMP 36.4; O2SAT 95
[2022-07-09 15:59] VITALS: BMI 39.2
[2022-07-09 17:31] LABS: Bedside Glucose 211 mg/dL (74-106)
[2022-07-09 20:58] VITALS: BP 161/72; PULSE 69; RESP 16; TEMP 36.9; O2SAT 94
[2022-07-09] MEDS: Insulin Glargine-YFGN 100 UNIT/ML Pen 40 UNIT SC (21:07)
[2022-07-09] MEDS: Atorvastatin Calcium 40 MG Tablet PO (21:08)
[2022-07-09] MEDS: 0.9% Saline Lock 10 ML Syringe IV (21:08)
[2022-07-09] MEDS: Atenolol 25 MG Tablet PO (21:08)
[2022-07-09 21:55] LABS: Bedside Glucose 322 mg/dL (74-106)
[2022-07-09 22:37] VITALS: BP 148/66; PULSE 63
[2022-07-10 00:11] VITALS: BMI 39.2
[2022-07-10 03:01] VITALS: BP 164/76; PULSE 57; RESP 16; TEMP 36.6; O2SAT 95
[2022-07-10] MEDS: Levothyroxine 75 MCG Tablet PO (06:12)
[2022-07-10 08:25] LABS: Bedside Glucose 211 mg/dL (74-106)
[2022-07-10] MEDS: Insulin Lispro 100 UNIT/ML INSULN.PEN 9 UNIT SC ×2 (08:53→12:43)
[2022-07-10] MEDS: Insulin Lispro 100 UNIT/ML INSULN.PEN SC ×2 (08:54→12:43)
[2022-07-10] MEDS: hydroCHLOROthiazide 12.5mg 12.5 MG PO (08:57)
[2022-07-10] MEDS: Aspirin 325 MG Tablet PO (08:57)
[2022-07-10] MEDS: Losartan Potassium 50 MG Tablet PO (08:58)
[2022-07-10] MEDS: Etodolac 200 MG Capsule 400 MG PO (08:58)
[2022-07-10] MEDS: Enoxaparin 40 MG/0.4 ML Syringe SC (08:59)
[2022-07-10 09:18] VITALS: BP 156/74; PULSE 60; RESP 18; TEMP 36.6; O2SAT 95
--- NOTE | 2022-07-10 09:19 | PCM.PN.HOSP ---
Subjective Subjective Feels better. Had back pain, but it is better. The back pain felt like it when he has kidney stones. Objective Data Objective Data Vital Signs: Vital Signs Temp Pulse Resp BP Pulse Ox O2 Del Method O2 Flow Rate 36.6 C 60 18 156/74 H 95 Room Air 2 07/10/22 09:18 07/10/22 09:18 07/10/22 09:18 07/10/22 09:18 07/10/22 09:18 07/10/22 09:18 07/07/22 03:23 Oxygen Flow Rate (L/min) 2 Oxygen Delivery Method Room Air Weight: 113.5 kg Body Mass Index (BMI) 39.2 Intake & Output: Intake and Output for Last 24 Hours 07/08/22 07/09/22 07/10/22 23:59 23:59 23:59 Intake Total 750 / 750 950 / 950 Output Total 300 / 300 1550 / 1550 Balance 450 / 450 -600 / -600 Lab / Micro Data Result Diagrams: 07/07/22 05:45 07/07/22 05:45 Labs: Laboratory Results - last 24 hr 07/09/22 09:15: Hemoglobin A1c 7.6 H 07/09/22 12:39: POC Glucose 286 H 07/09/22 17:10: POC Glucose 211 H 07/09/22 21:05: POC Glucose 322 H 07/10/22 07:47: POC Glucose 211 H Micro: Microbiology 07/06/22 12:58 Nasal Secretion SARS-CoV-2 & FLU Antigen (Rapid) - Final Radiography Diagnostic Testing: Radiology Impression Cervical Spine CT 07/09/22 10:04 IMPRESSION: 1. 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 2. Straightening of the cervical spine which could be due to muscle spasm. 3. If symptoms persist, MRI of the cervical spine is recommended. 4. 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 Electronically Signed: Joaquin Perera MD at 14:45 EST , Rhythm Strip Rhythm Strip: Sinus Rhythm Rate: 65 Ectopy: None Physical Exam Const alert and no apparent distress Neuro oriented x3 Assessment & Plan Assessment/Plan (1) Arm paresthesia, left: PLAN: Concern is for stroke. Head CT and CTA were negative. I strongly recommended an MRI but the patient was immediately asking that he if he could refuse that. I told the patient that he could refuse it but it limits my ability to adequately care for him and I strongly encouraged him to have the MRI as I would give better visualization of his brain. I told that we could premedicate him with some Ativan but we do not do conscious sedation at this facility. He said that he would think about it. I told him I can order the MRI irregardless but it certainly would be his right to refuse that but I strongly encouraged him to have that completed. If he is unable to complete the MRI then we will perform a head CT without contrast 24 hours after his for CT. Additionally I am concerned about this possibly being radicular as he was complaining of paresthesias and pain. Some of the pain may be exacerbated due to the blood pressure cuff that was on his arm but he stated that that was actually before. So we will order an MRI of his cervical spine. Once again if he does not feel that he can do that then we will order CT of his cervical spine to evaluate for any radicular findings Continue with aspirin and atorvastatin Further history is become available where is more in both of his arms began with paresthesias but after he had fallen. MRI of the brain is negative for any stroke. I do not feel that an MRI of his cervical spine is necessary at this time nor would he even tolerated. And I thus do not feel a CT of the cervical spine is necessary as his strength is resolved and symptoms are resolved. CAT scan showed significant arthritis but no clear spinal cord nor nerve root impingement. Patient would not be able to tolerate a closed MRI without conscious sedation which is not performed at this facility. Patient can have an outpatient MRI if necessary down the road. I do not notice any appreciable weakness in his upper extremities at this time. (2) Debility: PLAN: Both legs are weak but is muscle during those 5 out of 5 when I evaluated him. PT OT evaluate and treat Still weak. PT OT evaluate and treat. Patient is interested in going to [place] as his is currently there. (3) Atelectasis: PLAN: I do not feel this is pneumonia. Patient did receive a levofloxacin the emergency room. I am going to hold off any additional antibiotics. COVID-19 and influenza were negative. (4) Diabetes: PLAN: Uncontrolled check A1c increase glargine to 40 continue prandial insulin at 9 PLAN: Plan Chronic stable conditions Hypertension: Continue HCTZ. Continue with losartan Hypothyroidism: Continue with levothyroxine VTE prophylaxis: Low jaye weight heparin. CODE STATUS: Addressed with the patient. Patient was to be full code. Case discussed with the patient's son at bedside. Disposition: to SNF today.
[2022-07-10 09:20] VITALS: PULSE 66; RESP 18
--- NOTE | 2022-07-10 09:38 | TREXTCAR_ITS ---
Diet Diet Order/Speech Therapy: 07/06/22 18:29 Diet: Cardiac: Calorie-Controlled Food consistency:: Regular Liquid Consistency:: Regular/Thin How many daily calories?: 1800 calorie Routine Orders/Code Status Routine Lab Work: CBC and BMP Code Status: Full Code Therapies Weight Bearing: Full weight bearing Physical Therapy: Eval and Treat Occupational Therapy: Eval and Treat Problem/Diagnosis (1) Arm paresthesia, left: Status: Acute Code(s): R20.2 - Paresthesia of skin Plan: Concern is for stroke. Head CT and CTA were negative. I strongly recommended an MRI but the patient was immediately asking that he if he could refuse that. I told the patient that he could refuse it but it limits my ability to adequately care for him and I strongly encouraged him to have the MRI as I would give better visualization of his brain. I told that we could premedicate him with some Ativan but we do not do conscious sedation at this facility. He said that he would think about it. I told him I can order the MRI irregardless but it certainly would be his right to refuse that but I strongly encouraged him to have that completed. If he is unable to complete the MRI then we will perform a head CT without contrast 24 hours after his for CT. Additionally I am concerned about this possibly being radicular as he was complaining of paresthesias and pain. Some of the pain may be exacerbated due to the blood pressure cuff that was on his arm but he stated that that was actually before. So we will order an MRI of his cervical spine. Once again if he does not feel that he can do that then we will order CT of his cervical spine to evaluate for any radicular findings Continue with aspirin and atorvastatin Further history is become available where is more in both of his arms began with paresthesias but after he had fallen. MRI of the brain is negative for any stroke. I do not feel that an MRI of his cervical spine is necessary at this time nor would he even tolerated. And I thus do not feel a CT of the cervical spine is necessary as his strength is resolved and symptoms are resolved. CAT scan showed significant arthritis but no clear spinal cord nor nerve root impingement. Patient would not be able to tolerate a closed MRI without conscious sedation which is not performed at this facility. Patient can have an outpatient MRI if necessary down the road. I do not notice any appreciable weakness in his upper extremities at this time. (2) Debility: Status: Acute Code(s): R53.81 - Other malaise Plan: Both legs are weak but is muscle during those 5 out of 5 when I evaluated him. PT OT evaluate and treat Still weak. PT OT evaluate and treat. Patient is interested in going to [place] as his is currently there. (3) Atelectasis: Status: Acute Code(s): J98.11 - Atelectasis Plan: I do not feel this is pneumonia. Patient did receive a levofloxacin the emergency room. I am going to hold off any additional antibiotics. COVID-19 and influenza were negative. (4) Diabetes: Status: Acute Code(s): E11.9 - Type 2 diabetes mellitus without complications Plan: Uncontrolled check A1c increase glargine to 40 continue prandial insulin at 9 Plan Chronic stable conditions * Hypertension: Continue HCTZ. Continue with losartan * Hypothyroidism: Continue with levothyroxine VTE prophylaxis: Low jaye weight heparin. CODE STATUS: Addressed with the patient. Patient was to be full code. Case discussed with the patient's son at bedside. Disposition: to SNF today. Allergies/Procedures Done in Hospital Allergies iodine Allergy (Verified 07/06/22 10:41) Swelling Procedures: None Type of Care/Length of Stay Estimated LOS: Convalescent Care Less Than 30 days Type of Care Needed: Skilled Rehab Potential: Fair Prognosis: Good Additional Orders/Day of Discharge Day of Discharge: 07/10/22 Dietary and Speech Recommendations Dietitian Recommendations/Changes: RD will adjust calories to 1800kcal CCD, Cardiac diet to manage medical conditions. Discharge Plan Admission Admit Date/Time: 07/06/22 17:46 Primary Reason for Your Visit: debility Attending Provider: Mode Verdugo Primary Care Provider: Demetris Fuentes Consulting Providers: Brionna Silva Discharge Orders/Prescriptions Prescriptions: New insulin glargine-yfgn 100 unit/mL (3 mL) Insulin Pen 40 unit subcut QHS Qty: 0 0RF insulin lispro [Humalog KwikPen Insulin] 100 unit/mL Insulin Pen See Protocol subcut TIDAC Qty: 0 0RF Protocol: 3. Sliding Scale Insulin Med Dosing Condition: 150-189 mg/dl = 1 unit Condition: 190-229 mg/dl = 2 units Condition: 230-269 mg/dl = 3 units Condition: 270-309 mg/dl = 4 units Condition: 310-349 mg/dl = 5 units Condition: 350-399 mg/dl = 6 units Condition: 400-449 mg/dl = 7 units Condition: Greater than 449 call physician Protocol Text: - Use for Total Daily Dose of Insulin 37-55 units - Obsese, infected, or steroid patients MEDIUM DOSING ALGORITHIM acetaminophen [Tylenol] 325 mg Tablet 650 mg PO Q6H PRN PRN (Reason: Pain 1-10 Or Fever >100.7) Qty: 0 0RF Continued losartan [Cozaar] 50 MG tablet 50 mg PO DAILY atorvastatin 40 MG tablet 40 mg PO QHS aspirin 325 MG tablet 325 mg PO DAILY@0800 atenolol 25 MG tablet 25 mg PO QHS levothyroxine 75 MCG tablet 75 mcg PO DAILY nitroglycerin 0.4 MG tablet 0.4 mg sublingual Q5M PRN (Reason: Chest Pain) insulin lispro [Humalog KwikPen Insulin] 100 UNIT/ML insulin pen 9 unit SQ TIDCM etodolac 400 mg tablet 400 mg PO BID hydrochlorothiazide 12.5 mg capsule 12.5 mg PO DAILY omega-3 fatty acids Capsule 1,000 mg PO DAILY Held metformin 850 MG tablet 850 mg PO BIDCM Hold Instructions: Resume on 07/11/22. Discontinued insulin glargine [Lantus U-100 Insulin] 100 UNIT/ML solution 27 unit SQ QHS Referrals / Follow Up: Demetris Fuentes MD [Primary Care Provider] - Within 2 Weeks Disposition Disposition (needs filled in before D/C Order can be placed): Longterm Facility
--- NOTE | 2022-07-10 09:43 | DS.PCM_ITS ---
Providers Date of Admission: 07/06/22 Primary Care Physician: Dr. Demetris Fuentes MD Reason For Visit: LEFT SIDED WEAKNESS Diagnosis Discharge Diagnosis (1) Arm paresthesia, left: Status: Acute Code(s): R20.2 - Paresthesia of skin Plan: Concern is for stroke. Head CT and CTA were negative. I strongly recommended an MRI but the patient was immediately asking that he if he could refuse that. I told the patient that he could refuse it but it limits my ability to adequately care for him and I strongly encouraged him to have the MRI as I would give better visualization of his brain. I told that we could premedicate him with some Ativan but we do not do conscious sedation at this facility. He said that he would think about it. I told him I can order the MRI irregardless but it certainly would be his right to refuse that but I strongly encouraged him to have that completed. If he is unable to complete the MRI then we will perform a head CT without contrast 24 hours after his for CT. Additionally I am concerned about this possibly being radicular as he was complaining of paresthesias and pain. Some of the pain may be exacerbated due to the blood pressure cuff that was on his arm but he stated that that was actually before. So we will order an MRI of his cervical spine. Once again if he does not feel that he can do that then we will order CT of his cervical spine to evaluate for any radicular findings Continue with aspirin and atorvastatin Further history is become available where is more in both of his arms began with paresthesias but after he had fallen. MRI of the brain is negative for any stroke. I do not feel that an MRI of his cervical spine is necessary at this time nor would he even tolerated. And I thus do not feel a CT of the cervical spine is necessary as his strength is resolved and symptoms are resolved. CAT scan showed significant arthritis but no clear spinal cord nor nerve root impingement. Patient would not be able to tolerate a closed MRI without co nscious sedation which is not performed at this facility. Patient can have an outpatient MRI if necessary down the road. I do not notice any appreciable weakness in his upper extremities at this time. (2) Debility: Status: Acute Code(s): R53.81 - Other malaise Plan: Both legs are weak but is muscle during those 5 out of 5 when I evaluated him. PT OT evaluate and treat Still weak. PT OT evaluate and treat. Patient is interested in going to [place] as his is currently there. (3) Atelectasis: Status: Acute Code(s): J98.11 - Atelectasis Plan: I do not feel this is pneumonia. Patient did receive a levofloxacin the emergency room. I am going to hold off any additional antibiotics. COVID-19 and influenza were negative. (4) Diabetes: Status: Acute Code(s): E11.9 - Type 2 diabetes mellitus without complications Plan: Uncontrolled check A1c increase glargine to 40 continue prandial insulin at 9 Plan Chronic stable conditions * Hypertension: Continue HCTZ. Continue with losartan * Hypothyroidism: Continue with levothyroxine VTE prophylaxis: Low jaye weight heparin. CODE STATUS: Addressed with the patient. Patient was to be full code. Case discussed with the patient's son at bedside. Disposition: to SNF today. Medications at Discharge Home Medications aspirin 325 mg tablet 325 mg PO DAILY@0800 HEALTH MAINTENANCE 08/20/16 atenolol 25 mg tablet 25 mg PO QHS BP 08/20/16 atorvastatin 40 mg tablet 40 mg PO QHS CHOLESTEROL 08/20/16 insulin lispro 100 unit/mL subcutaneous pen (Humalog KwikPen (U-100) Insulin) 9 unit SQ TIDCM DM 08/20/16 levothyroxine 75 mcg tablet 75 mcg PO DAILY THYROID 08/20/16 losartan 50 mg tablet (Cozaar) 50 mg PO DAILY BP 08/20/16 metformin 850 mg tablet 850 mg PO BIDCM DM 08/20/16 nitroglycerin 0.4 mg sublingual tablet 0.4 mg sublingual Q5M PRN Chest Pain 08/20/16 etodolac 400 mg tablet 400 mg PO BID PAIN 11/09/21 hydrochlorothiazide 12.5 mg capsule 12.5 mg PO DAILY BP 07/06/22 omega-3 fatty acids 1,000 mg PO DAILY SUPPLEMENT 07/06/22 acetaminophen 325 mg tablet (Tylenol) 650 mg PO Q6H PRN PRN Pain 1-10 Or Fever >100.7 #0 tabs 07/10/22 insulin glargine-yfgn 100 unit/mL (3 mL) subcutaneous pen 40 unit (0.4 mL) subcut QHS #0 mL 07/10/22 insulin lispro 100 unit/mL subcutaneous pen (Humalog KwikPen (U-100) Insulin) See Protocol subcut TIDAC #0 mL 07/10/22 Hospital Course Operations None Procedures None Summary of Care Provided Minutes Spent on Discharge: 28 Weight / BMI Weight Weight: 113.5 kg Body Mass Index (BMI) 39.2 ABG / Lab / Microbiology Data Result Diagrams: 07/07/22 05:45 07/07/22 05:45 Laboratory: Laboratory Results - last 24 hr 07/09/22 12:39: POC Glucose 286 H 07/09/22 17:10: POC Glucose 211 H 07/09/22 21:05: POC Glucose 322 H 07/10/22 07:47: POC Glucose 211 H Microbiology: Microbiology 07/06/22 12:58 Nasal Secretion SARS-CoV-2 & FLU Antigen (Rapid) - Final Radiography Diagnostic Testing: Radiology Impression Cervical Spine CT 07/09/22 10:04 IMPRESSION: 1. 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 2. Straightening of the cervical spine which could be due to muscle spasm. 3. If symptoms persist, MRI of the cervical spine is recommended. 4. 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 Electronically Signed: Joaquin Perera MD at 14:45 EST , Meaningful Use Info Meaningful Use Diagnoses (Choose all that apply): None applicable Discharge Plan Admission Admit Date/Time: 07/06/22 17:46 Primary Reason for Your Visit: debility Attending Provider: Mode Verdugo Primary Care Provider: Demetris Fuentes Consulting Providers: Brionna Silva Discharge Orders/Prescriptions Prescriptions: New insulin glargine-yfgn 100 unit/mL (3 mL) Insulin Pen 40 unit subcut QHS Qty: 0 0RF insulin lispro [Humalog KwikPen Insulin] 100 unit/mL Insulin Pen See Protocol subcut TIDAC Qty: 0 0RF Protocol: 3. Sliding Scale Insulin Med Dosing Condition: 150-189 mg/dl = 1 unit Condition: 190-229 mg/dl = 2 units Condition: 230-269 mg/dl = 3 units Condition: 270-309 mg/dl = 4 units Condition: 310-349 mg/dl = 5 units Condition: 350-399 mg/dl = 6 units Condition: 400-449 mg/dl = 7 units Condition: Greater than 449 call physician Protocol Text: - Use for Total Daily Dose of Insulin 37-55 units - Obsese, infected, or steroid patients MEDIUM DOSING ALGORITHIM acetaminophen [Tylenol] 325 mg Tablet 650 mg PO Q6H PRN PRN (Reason: Pain 1-10 Or Fever >100.7) Qty: 0 0RF Continued losartan [Cozaar] 50 MG tablet 50 mg PO DAILY atorvastatin 40 MG tablet 40 mg PO QHS aspirin 325 MG tablet 325 mg PO DAILY@0800 atenolol 25 MG tablet 25 mg PO QHS levothyroxine 75 MCG tablet 75 mcg PO DAILY nitroglycerin 0.4 MG tablet 0.4 mg sublingual Q5M PRN (Reason: Chest Pain) insulin lispro [Humalog KwikPen Insulin] 100 UNIT/ML insulin pen 9 unit SQ TIDCM etodolac 400 mg tablet 400 mg PO BID hydrochlorothiazide 12.5 mg capsule 12.5 mg PO DAILY omega-3 fatty acids Capsule 1,000 mg PO DAILY Held metformin 850 MG tablet 850 mg PO BIDCM Hold Instructions: Resume on 07/11/22. Discontinued insulin glargine [Lantus U-100 Insulin] 100 UNIT/ML solution 27 unit SQ QHS Referrals / Follow Up: Demetris Fuentes MD [Primary Care Provider] - Within 2 Weeks Disposition Disposition (needs filled in before D/C Order can be placed): Residential Facility Charges/Coding Visit Charges Inpatient E&M: 76786 Disch Hosp
--- NOTE | 2022-07-10 11:34 | NURSING ---
covid nasal swab sent to lab
[2022-07-10 11:41] LABS: Bedside Glucose 328 mg/dL (74-106)
[2022-07-10 12:56] VITALS: BP 131/69; PULSE 72; RESP 18; TEMP 36.8; O2SAT 94
== END 2022-07-10 15:06 | disposition skilled nursing facility (03) | DRG 92 ==
LOC: ED 17:34 → PCU 17:47
PROVIDERS: Admitting Provider Internal Medicine; Emergency Provider Emergency Medicine; PCP Family Medicine
DX: R20.2 Paresthesia of skin (principal); J98.11 Atelectasis; E03.9 Hypothyroidism, unspecified; E11.65 Type 2 diabetes mellitus with hyperglycemia; Z79.4 Long term (current) use of insulin; E78.00 Pure hypercholesterolemia, unspecified; I10 Essential (primary) hypertension; M50.321 Other cervical disc degeneration at C4-C5 level; M62.81 Muscle weakness (generalized); F40.240 Claustrophobia; Z79.82 Long term (current) use of aspirin; Z79.84 Long term (current) use of oral hypoglycemic drugs; Z79.899 Other long term (current) drug therapy; Z86.73 Personal history of transient ischemic attack (TIA), and cerebral infarction without residual deficits
CPT/HCPCS: 36415; 70450; 70496; 70498; 70551; 71045; 71046; 71250; 72125; 80048; 80053; 80061; 81001; 82962; 83036; 84484; 85025; 87426; 87428; 93005; 93306; 94762; 97116; 97162; 97165; 97530; 97535; 99285; J7030; Q9957; Q9967; A4216; C8929

== ENCOUNTER 2022-07-10 15:28 | Inpatient (IN) | payer MEDICARE, OTHER, SELFPAY ==
[2022-07-10 15:36] VITALS: BP 156/81; PULSE 62; RESP 18; TEMP 36.1; O2SAT 95; BMI 38.1
[2022-07-10 16:55] VITALS: PULSE 62; RESP 18; O2SAT 95
[2022-07-10 17:06] LABS: Bedside Glucose 314 mg/dL (74-106)
[2022-07-10] MEDS: Insulin Lispro 100 UNIT/ML INSULN.PEN 9 UNIT SC (18:04)
[2022-07-10] MEDS: Insulin Lispro 100 UNIT/ML INSULN.PEN SC (18:04)
[2022-07-10] MEDS: Etodolac 200 MG Capsule 400 MG PO (18:05)
--- NOTE | 2022-07-10 18:24 | HP.PCM_ITS ---
HPI - General General Date of Admission: 07/10/22 Date of Service: 07/11/22 Chief Complaint: Here for rehabilitation. HPI Narrative 07/06/2022 PHILLIP ANGEL, is a 81 Male who presents to [facility] Emergency Department with weakness. 07/06/2022 EKG normal sinus rhythm, left axis deviation, incomplete right bundle branch block, minimal voltage criteria for LVH, maybe normal variant, inferior infarct, age undetermined, cannot rule out anterior infarct, age undetermined. Weak, fell, legs gave out. Diarrhea, dehydrated, chronic leg swelling. Left upper extremity tingling. Chest X-ray right lower lobe infiltrate, CT chest showed early pneumonia, Levaquin given. Right sided headache, left upper extremity pain, tingling, left upper extremity weakness, left lower extremity weakness. Stroke alert, TPA not recommended. 07/06/2022 Admit to Hospital. Recommend MRI brain to rule out stroke. Recommend MRI cervical spine to rule out left cervical radiculopathy. Right lower lobe atelectasis, not pneumonia, hold antibiotics. 07/06/2022 Echo EF 65%. 07/07/2022 Left upper extremity pain, tingling resolved, maybe related to fall. MRI brain negative for stroke. Hold MRI cervical spine, patient claustrophobic. PT/OT for SNF. 07/08/2022 Feeling better. Adjust insulin to better control Diabetes. Planning [facility]. 07/09/2022 Dropping things, MRI cervical spine outpatient if indicated. 07/10/2022 Feels better, had back pain. 07/10/2022 Admit to TCU with debility, here for rehabilitation, strengthening, prior to discharge home alone. [facility] Medical History Diabetes High cholesterol Hypertension Hypothyroid Lactose intolerance Osteoarthritis Stroke/cerebrovascular accident Home Medications aspirin 325 mg tablet 325 mg PO DAILY@0800 HEALTH MAINTENANCE 08/20/16 [History Last Taken 07/10/22 08:57] atenolol 25 mg tablet 25 mg PO QHS BP 08/20/16 [History Last Taken 07/09/22 21:08] atorvastatin 40 mg tablet 40 mg PO QHS CHOLESTEROL 08/20/16 [History Last Taken 07/09/22 21:08] insulin lispro 100 unit/mL subcutaneous pen (Humalog KwikPen (U-100) Insulin) 9 unit SQ TIDCM DM 08/20/16 [History Last Taken 07/10/22 12:43] levothyroxine 75 mcg tablet 75 mcg PO DAILY THYROID 08/20/16 [History Last Taken 07/10/22 06:12] losartan 50 mg tablet (Cozaar) 50 mg PO DAILY BP 08/20/16 [History Last Taken 07/06/22] metformin 850 mg tablet 850 mg PO BIDCM DM 08/20/16 [History Last Taken 07/06/22] nitroglycerin 0.4 mg sublingual tablet 0.4 mg sublingual Q5M PRN Chest Pain 08/03 02/16 [History Last Taken Unknown] etodolac 400 mg tablet 400 mg PO BID PAIN 11/09/21 [History Last Taken 07/10/22 08:58] hydrochlorothiazide 12.5 mg capsule 12.5 mg PO DAILY BP 07/06/22 [History Last Taken 07/10/22 08:57] omega-3 fatty acids 1,000 mg PO DAILY SUPPLEMENT 07/06/22 [History Last Taken 07/06/22] acetaminophen 325 mg tablet (Tylenol) 650 mg PO Q6H PRN PRN Pain 1-10 Or Fever >100.7 #0 tabs 07/10/22 [Rx Last Taken Unknown] insulin glargine-yfgn 100 unit/mL (3 mL) subcutaneous pen 40 unit subcut QHS DM 07/10/22 [History Last Taken 07/09/22 21:07] insulin lispro 100 unit/mL subcutaneous pen (Humalog KwikPen (U-100) Insulin) See Protocol subcut TIDAC DM 07/10/22 [History Last Taken Unknown] Allergy/AdvReac Type Severity Reaction Status Date / Time iodine Allergy Swelling Verified 07/06/22 10:41 milk Allergy Upset Verified 07/10/22 18:02 Stomach Milk Containing Products Allergy Upset Verified 07/10/22 18:02 Stomach Surgical History History of appendectomy History of cholecystectomy History of tonsillectomy Social History (Updated 07/10/22 @ 18:[address] Sam Black MD) household members: none Smoking Status: Never smoker alcohol intake: never substance use type: does not use ROS Constitutional Constitutional: Denies chills, fever(s) or weight gain ENT HEENT: Denies headache(s), nasal congestion or nasal discharge Cardiovascular Cardiovascular: Denies chest pain or palpitations Respiratory/Chest Respiratory/Chest: Denies cough, excessive phlegm production or shortness of breath with exertion Gastrointestinal Gastrointestinal: Denies abdominal pain, nausea or vomiting Genitourinary Genitourinary: Denies dysuria Musculoskeletal Musculoskeletal: Denies joint pain or joint swelling Integumentary Integumentary: Denies rash or wounds Neurologic Neurologic: Denies focal weakness, numbness or tingling Psychiatric Psychiatric: Denies anxiety, auditory hallucinations, depression, homicidal ideation or suicidal ideation Vital Signs Vital Signs Vital Signs: 07/10/22 15:36 07/10/22 16:55 Temperature 97.0 F L Temperature Source Temporal Pulse Rate 62 62 Pulse Rhythm Regular Pulse Strength Normal (2+) Respiratory Rate 18 18 Respiratory Effort Normal Respiratory Depth Normal Respiratory Pattern Normal Blood Pressure 156/81 H Blood Pressure Mean 106 Blood Pressure Source Monitor Blood Pressure Position Sitting Blood Pressure Location Left Arm Pulse Ox 95 95 Oxygen Delivery Method Room Air Room Air Weight Weight: 110.393 kg Body Mass Index (BMI) 38.1 Physical Exam Const alert General Appearance: cooperative HEENT normocephalic Eyes PERRL and EOMs intact bilaterally Neck supple, no JVD and no carotid bruits Resp normal respiratory effort, normal air movement and clear to auscultation bila terally Cardio regular rate and regular rhythm GI normal to inspection, nondistended, normoactive bowel sounds, non-tender and non-distended Extremity normal capillary refill General Extremity: Negative for edema Skin no rashes or lesions noted General Skin Exam: no breakdown Psych affect normal Appearance: appropriate Results Lab / Micro Data Result Diagrams: 07/11/22 05:09 07/11/22 05:09 Labs: Laboratory Results - last 24 hr 07/10/22 16:43: POC Glucose 314 H Assessment & Plan Assessment/Plan (1) Debility: (2) Left-sided weakness: (3) Arm paresthesia, left: (4) Left cervical radiculopathy: (5) Diabetes mellitus: (6) Hypertension: (7) Hyperlipidemia: (8) Hypothyroidism: (9) Osteoarthritis: (10) Stroke: PLAN: Plan 81 year old male with below past medical history hospitalized for left sided weakness, stroke ruled out, complicated by left cervical radiculopathy, admitted to TCU with debility, here for rehabilitation, strengthening, prior to discharge home alone. * Debility - PT/OT. * Pain - Tylenol 1000mg q6h prn pain (1-10). * Bowel - senna/colace 1 tablet bid, MOM 30ml po x 1 prn. * Adult immunization - Administer pneumonia vaccine, covid19 vaccine, flu vaccine as appropriate. * DVT prophylaxis - HAS-BLED score 3, high risk of bleeding, Benito score 5, high risk of blood clots, Rx Xarelto 10mg daily x 2 weeks, stop if hemoglobin dropping. * Stroke - Aspirin 325mg daily. * Hypertension - Atenolol 25mg qhs, Losartan 50mg daily, HCTZ 12.5mg daily. * Hyperlipidemia - Atorvastatin 40mg qhs. * Osteoarthritis - Etodolac 400mg bidcm. * Diabetes Mellitus II - Metformin 850mg bidcm, Glargine 40 units qhs, Lispro 8 units tidcm. * Hypothyroidism - Levothyroxine 75mc daily. * CAD - Atenolol 25mg qhs, Losartan 50mg daily, Aspirin 325mg daily, NTG 0.4mg q5m prn.
[2022-07-10] MEDS: Acetaminophen 500 MG Tablet 1000 MG PO (22:40)
[2022-07-10] MEDS: Atenolol 25 MG Tablet PO (22:42)
[2022-07-10] MEDS: Atorvastatin Calcium 40 MG Tablet PO (22:42)
[2022-07-10] MEDS: Insulin Glargine-YFGN 100 UNIT/ML Pen 40 UNIT SC (22:43)
[2022-07-10 23:40] LABS: Bedside Glucose 154 mg/dL (74-106)
[2022-07-11 05:39] LABS: Absolute Lymphocyte Count 2.16 X10^3/uL (0.83-4.51); Absolute Neutrophil Count 8.1 X10^3/uL (2.0-7.7); Basophil# 0.04 X10^3/uL; Basophil% 0.3 % (0-1); Eosinophil# 0.23 X10^3/uL; Eosinophils% 1.9 % (0-5); Hematocrit 42.3 % (40-54); Hemoglobin 13.7 g/dL (13.0-16.5); Lymphocyte # 2.16 X10^3/ul (0.83-4.51); Lymphocyte % 18.1 % (19-41); Mean Corp Hgb Conc 32.4 g/dL (32-36); Mean Corpuscular Volume 86.5 fL (80-94); Mean Platelet Vol. 10.5 fl (6.2-12.0); Monocyte# 1.25 X10^3/uL; Monocyte% 10.5 % (0-10); NRBC Flagged by Analyzer 0 % (0-5); Neutrophil # 8.13 X10^3/uL (2.7-7.7); Neutrophil % 68.3 % (47-70); Platelet Count 274 K/mm3 (150-450); RBC Distribution Width CV 13.7 % (11.6-14.6); RBC Distribution Width SD 43.5 fl (35.1-43.9); Red Blood Count 4.89 M/mm3 (4.6-6.2); White Blood Count 11.9 K/mm3 (4.4-11.0)
[2022-07-11 06:00] LABS: Anion Gap 6 (5-15); BUN 36 mg/dL (7-18); Calcium,Total 8.9 mg/dL (8.5-10.1); Chloride 108 mmol/L (98-107); Creatinine, Serum 1.24 mg/dL (0.70-1.30); EST Glomerular Filtration Rate 59 mL/min (>60); Est Glom Filt Rate - Afr Amer 72 mL/min (>60); Estimated Creatinine Clearance 42.94 ml/min; Glucose 98 mg/dL (74-106); Potassium 3.7 mmol/L (3.5-5.1); Sodium Level 143 mmol/L (136-145)
[2022-07-11] MEDS: Levothyroxine 75 MCG Tablet PO (06:24)
[2022-07-11] MEDS: Losartan Potassium 50 MG Tablet PO (06:25)
[2022-07-11] MEDS: hydroCHLOROthiazide 12.5mg 12.5 MG PO (06:26)
[2022-07-11 06:29] VITALS: BP 163/76; PULSE 57
[2022-07-11 06:51] LABS: Bedside Glucose 147 mg/dL (74-106)
[2022-07-11] MEDS: Etodolac 200 MG Capsule 400 MG PO ×2 (08:39→18:17)
[2022-07-11] MEDS: Insulin Lispro 100 UNIT/ML INSULN.PEN 9 UNIT SC ×3 (08:39→18:16)
[2022-07-11] MEDS: Acetaminophen 500 MG Tablet 1000 MG PO ×2 (08:42→18:21)
[2022-07-11 09:56] VITALS: PULSE 66; RESP 18; O2SAT 96
[2022-07-11 11:35] LABS: Bedside Glucose 217 mg/dL (74-106)
[2022-07-11] MEDS: Tuberculin,Purif.prot.deriv. 50 TU/ML Vial 0.1 ML ID (12:09)
--- NOTE | 2022-07-11 12:43 | NURSING ---
Slot Machine Department Floorperson Note; Activity Asset: Eduardo Buchanan is independent in his choice of daily activities. He prefers to watch tv read the paper and visit w/family.
--- NOTE | 2022-07-11 15:52 | CASEMGMT ---
Social Work Met with patient to complete initial assessment. Introduced self and role. Verified/updated contacts. Discussed code status and MOLST form. Pt wishes to be DNR-CCA, no intubation. DNR and MOLST forms signed, placed in Dr folder. Nursing notified. Pt agrees to notify children to bring in copies of advanced directives. Educated to Medicare benefit. Encouraged to contact secondary insurance to ensure copay coverage. Pt's goal is to return home alone on first floor set up. Pt's is [facility] and unsure about returning home. Pt was 's primary caregiver. SW to continue to follow for DC planning. Shu Durbin, SHEET METAL LAYOUT MECHANIC FAUCET POLISHER
[2022-07-11 16:00] VITALS: BP 124/81; PULSE 72; RESP 17; TEMP 36.3; O2SAT 98
[2022-07-11 17:10] LABS: Bedside Glucose 215 mg/dL (74-106)
[2022-07-11] MEDS: Rivaroxaban 10 MG Tablet PO (18:16)
[2022-07-11] MEDS: metFORMIN HCl 850 MG Tablet PO (18:16)
[2022-07-11] MEDS: Senna/Docusate Sodium 1 Tablet PO (18:17)
[2022-07-11 21:28] VITALS: BP 130/47; PULSE 67
[2022-07-11] MEDS: Insulin Glargine-YFGN 100 UNIT/ML Pen 40 UNIT SC (21:29)
[2022-07-11] MEDS: Atenolol 25 MG Tablet PO (21:30)
[2022-07-11] MEDS: Atorvastatin Calcium 40 MG Tablet PO (21:30)
[2022-07-11 22:01] LABS: Bedside Glucose 260 mg/dL (74-106)
[2022-07-11] MEDS: MELATONIN 10 MG TABLET PO (22:16)
--- NOTE | 2022-07-11 23:52 | NURSING ---
pt reported that he was having trouble sleeping last few nights, dr wiseman updated, new order for melatonin 10mg qhs.
[2022-07-12] MEDS: Levothyroxine 75 MCG Tablet PO (06:45)
[2022-07-12] MEDS: hydroCHLOROthiazide 12.5mg 12.5 MG PO (06:45)
[2022-07-12] MEDS: Senna/Docusate Sodium 1 Tablet PO ×2 (06:45→17:37)
[2022-07-12] MEDS: Losartan Potassium 50 MG Tablet PO (06:45)
[2022-07-12 06:51] LABS: Bedside Glucose 160 mg/dL (74-106)
[2022-07-12] MEDS: Etodolac 200 MG Capsule 400 MG PO ×2 (08:36→17:36)
[2022-07-12] MEDS: metFORMIN HCl 850 MG Tablet PO ×2 (08:36→17:36)
[2022-07-12] MEDS: Insulin Lispro 100 UNIT/ML INSULN.PEN 9 UNIT SC ×3 (08:36→17:40)
--- NOTE | 2022-07-12 10:15 | PCM.PN.DRR ---
TCU RX Drug Regimen Review Subjective: TCU Admission. 81 YOM presented to the ER with weakness. Hospitalized for left sided weakness, stroke ruled out, complicated by left cervical radiculopathy. Admitted to TCU with debility for strengthening and rehabilitation. Objective: Allergies iodine Allergy (Verified 07/06/22 10:41) Swelling milk Allergy (Verified 07/10/22 18:02) Upset Stomach Milk Containing Products Allergy (Verified 07/10/22 18:02) Upset Stomach Current Medications Generic Name Dose Route Start Last Admin Trade Name Freq PRN Reason Stop Dose Admin Acetaminophen 1,000 mg 07/10/22 18:44 07/11/22 18:21 Acetaminophen 500 Mg Tablet PO 1,000 mg Q6H PRN PRN Administration Pain Score 1-10 Aspirin 325 mg 07/26/22 08:00 Aspirin 325 Mg Tablet PO BREAKFAST IMAN Atenolol 25 mg 07/10/22 22:00 07/11/22 21:30 Atenolol 25 Mg Tablet PO 25 mg QHS IMAN Administration Atorvastatin Calcium 40 mg 07/10/22 22:00 07/11/22 21:30 Atorvastatin Calcium 40 Mg Tablet PO 40 mg QHS IMAN Administration Etodolac 400 mg 07/10/22 17:00 07/12/22 08:36 Etodolac 200 Mg Capsule PO 400 mg BIDCM IMAN Administration Hydrochlorothiazide 12.5 mg 07/11/22 06:00 07/12/22 06:45 Hydrochlorothiazide 12.5mg PO 12.5 mg DAILY IMAN Administration Insulin Glargine 40 unit 07/10/22 22:00 07/11/22 21:29 Insulin Glargine-Yfgn 100 Unit/Ml Pen SC 40 unit QHS IMAN Administration Insulin Human Lispro 9 unit 07/10/22 17:45 07/12/22 08:36 Insulin Lispro 100 Unit/Ml Insuln.Pen SC 9 units TIDCM IMAN Administration Levothyroxine Sodium 75 mcg 07/11/22 06:00 07/12/22 06:45 Levothyroxine 75 Mcg Tablet PO 75 mcg DAILY IMAN Administration Losartan Potassium 50 mg 07/11/22 06:00 07/12/22 06:45 Losartan Potassium 50 Mg Tablet PO 50 mg DAILY IMAN Administration Magnesium Hydroxide 30 ml 07/10/22 18:39 Magnesium Hydroxide 30 Ml Udc PO X1 PRN CONSTIPATION Melatonin 10 mg 07/11/22 22:00 07/11/22 22:16 Melatonin 10 Mg Tablet PO 10 mg QHS IMAN Administration Metformin HCl 850 mg 07/11/22 17:00 07/12/22 08:36 Metformin Hcl 850 Mg Tablet PO 850 mg BIDCM IMAN Administration Nitroglycerin 0.4 mg 07/10/22 16:27 Nitroglycerin (Inpatient Use) 0.4 Mg Tab.Subl SL Q5M PRN CARDIAC/CHEST PAIN Rivaroxaban 10 mg 07/11/22 17:00 07/11/22 18:16 Rivaroxaban 10 Mg Tablet PO 07/25/22 17:01 10 mg DINNER IMAN Administration Senna/Docusate Sodium 1 tablet 07/11/22 06:00 07/12/22 06:45 Senna/Docusate Sodium 1 Tablet PO 1 tablet BID IMAN Administration Sodium Chloride 10 - 40 ml 07/10/22 15:49 0.9% Saline Lock 10 Ml Syringe IV UD PRN SALINE FLUSH Tuberculin PPD 0.1 ml 07/18/22 10:00 Tuberculin,Purif.Prot.Deriv. 50 Tu/Ml Vial ID 07/18/22 10:01 X1 ONE Problem List (Last Reviewed 07/10/22 @ 18:[address] Sam Black MD) Stroke (Acute) Osteoarthritis (Acute) Hypothyroidism (Acute) Hyperlipidemia (Acute) Hypertension (Chronic) Diabetes mellitus (Acute) Left cervical radiculopathy (Acute) Left-sided weakness (Acute) Debility (Acute) Arm paresthesia, left (Acute) Vital Signs Temp Pulse Resp BP Pulse Ox O2 Del Method 97.4 F L 67 17 130/47 H 98 Room Air 07/11/22 16:00 07/11/22 21:28 07/11/22 16:00 07/11/22 21:28 07/11/22 16:00 07/11/22 16:00 Oxygen Delivery Method Room Air Weight: 110.393 kg Body Mass Index (BMI) 38.1 Sodium 143 mmol/L (136-145) 07/11/22 05:09 Potassium 3.7 mmol/L (3.5-5.1) 07/11/22 05:09 Chloride 108 mmol/L (98-107) H 07/11/22 05:09 Carbon Dioxide 29.0 mmol/L (21.0-32.0) 07/11/22 05:09 Anion Gap 6 (5-15) 07/11/22 05:09 BUN 36 mg/dL (7-18) H 07/11/22 05:09 Creatinine 1.24 mg/dL (0.70-1.30) 07/11/22 05:09 Est GFR (MDRD) Af Amer 72 mL/min (>60) 07/11/22 05:09 Est GFR (MDRD) Non-Af 59 mL/min (>60) L 07/11/22 05:09 BUN/Creatinine Ratio 29.0 RATIO (10-20) H 07/11/22 05:09 Glucose 98 mg/dL (74-106) 07/11/22 05:09 Assessment/Plan: 1. Pain: acetaminophen 1000mg PO Q6H PRN pain 1-10. Resident has had 3 doses for pain between 6-8 in the shoulder/head. Please continue to monitor for increased pain and PRN usage. 2. Bowel: senna/docusate 1T PO BID and MOM 30ML PO x1 PRN constipation. Please continue to monitor for constipation and PRN usage. No documented bowel movements and no PRN doses. 3. DVT prophylaxis: rivaroxaban 10mg PO daily thru 07/25/22. Please continue to monitor for S/S of bleeding and hemoglobin (last 13.7g/dL). 4. Hypertension/CAD/stroke: atenolol 25mg PO QHS, losartan 50mg PO daily, hydrochlorothiazide 12.5mg PO daily, aspirin 325mg PO DAILYCM and nitroglycerin 0.4mg SL Q5M PRN chest pain. Please continue to monitor S/S of bleeding, hemoglobin, BP (last 130/47), HR (last 67), renal function, potassium (last 3.7mmol/L), sodium (last 143mmol/L), PRN usage and chest pain. No doses of nitroglycerin so far. 5. Hyperlipidemia: atorvastatin 40mg PO QHS. Please continue to monitor lipid panel (last 07/07/22), LFTs (last 07/06/22) and muscle pain. 6. Osteoarthritis: etodolac 400mg PO BIDCM. Please continue to monitor for increased pain, bleeding and renal function. 7. Diabetes mellitus II: metformin 850mg PO BIDCM, insulin glargine 40units SC QHS and insulin lispro 9units TIDCM. Please continue to monitor hemoglobin A1c (last 7.6% 07/09/22), glucose (last 160mg/dL), diarrhea, and renal function (GFR 72mL/min). 8. Hypothyroidism: levothyroxine 75mcg PO daily. Please consider ordering a TSH level if clinically appropriate. Last level from 02/2016. Thanks. Please continue to monitor for S/S of hypo/hyperthyroidism. 9. Insomnia (per nursing note): melatonin 10mg PO QHS. Please continue to monitor for excessive drowsiness. Assessment/Plan for indications treated with psychotropic medications: None Medical chart and medication regimen reviewed. The following medication irregularities or issues were identified: *1. Levothyroxine 75mcg PO daily. Please consider ordering a TSH level if clinically appropriate. Last level from 02/2016. Thanks. Date of Note:: 07/12/22
[2022-07-12 11:31] LABS: Bedside Glucose 230 mg/dL (74-106)
[2022-07-12] MEDS: Acetaminophen 500 MG Tablet 1000 MG PO ×2 (13:43→22:34)
[2022-07-12 15:22] VITALS: BP 136/57; PULSE 65; RESP 16; TEMP 36.5; O2SAT 94
--- NOTE | 2022-07-12 15:53 | CHAPLAIN ---
Type of Pastoral Visit ___ Initial Visit _x__ Follow-up Visit ___ On-call Visit ___ General Patient Visit ___ Spiritual Assessment ___ Family Conference ___ Bereavement ___ Rapid Response ___ Code Blue ___ Other (describe below) Pastoral Care Referral From _x__ Patient _x__ Family ___ Nurse ___ Physician ___ Automation Qa Lead ___ Protective Signal Operations Supervisor ___ Other (describe below) Sacrament/Intervention _x__ Active listening ___ Anointing ___ Restorationist ___ Bereavement ___ Communion _x__ Ann exploration ___ ___ Life review _x__ Prayer ___ Reconciliation ___ Sacrament of Sick _x__ Supportive presence ___ Wedding ___ Other (describe below) Pastoral Comments previously met patient in PCU; one family member is known to this property economist; of this patient was also seen several times recently when she was admitted here; pt goal is to have some definitive answers about his health needs; pt concern is that spouse is in failing health at [facility] and yesterday had more news of health issues; pt is tearful at this point of conversation; discussion about his support system, family, and ann; pt reports great family support; pt had left his ann of childhood but is open to presence and prayer of this property economist; pt is again tearful after prayer and expresses gratitude for the emotional support and visits; more visits are welcome for the future
[2022-07-12] MEDS: Rivaroxaban 10 MG Tablet PO (17:35)
[2022-07-12 17:40] LABS: Bedside Glucose 164 mg/dL (74-106)
[2022-07-12 22:00] VITALS: PULSE 68; RESP 18; O2SAT 96
[2022-07-12 22:01] LABS: Bedside Glucose 131 mg/dL (74-106)
[2022-07-12] MEDS: MELATONIN 10 MG TABLET PO (22:27)
[2022-07-12] MEDS: Atorvastatin Calcium 40 MG Tablet PO (22:27)
[2022-07-12] MEDS: Atenolol 25 MG Tablet PO (22:29)
[2022-07-12] MEDS: Insulin Glargine-YFGN 100 UNIT/ML Pen 40 UNIT SC (22:29)
[2022-07-13] MEDS: Losartan Potassium 50 MG Tablet PO (04:15)
[2022-07-13] MEDS: Senna/Docusate Sodium 1 Tablet PO (04:15)
[2022-07-13] MEDS: hydroCHLOROthiazide 12.5mg 12.5 MG PO (04:15)
[2022-07-13] MEDS: Levothyroxine 75 MCG Tablet PO (04:16)
[2022-07-13 06:36] LABS: Bedside Glucose 99 mg/dL (74-106)
[2022-07-13] MEDS: Insulin Lispro 100 UNIT/ML INSULN.PEN 9 UNIT SC ×3 (08:38→18:05)
[2022-07-13] MEDS: metFORMIN HCl 850 MG Tablet PO ×2 (08:39→18:04)
[2022-07-13] MEDS: Etodolac 200 MG Capsule 400 MG PO ×2 (08:39→18:05)
--- NOTE | 2022-07-13 09:42 | CASEMGMT ---
Social Work IDT met with patient and two sons for care plan meeting. Discussed patient's progress in PT/OT/SN. Educated to Medicare benefit. Encouraged to contact secondary insurance to ensure copay coverage. Offered for pt to set DC when ready. Pt's goal is to return home at [place]. SW to continue to follow to coordinate DC needs. Shu Durbin, DURAL MECHANIC COMMERCIAL SPECIALIST
[2022-07-13 12:00] LABS: Bedside Glucose 162 mg/dL (74-106)
[2022-07-13] MEDS: Acetaminophen 500 MG Tablet 1000 MG PO ×2 (12:09→18:06)
[2022-07-13 15:28] VITALS: BP 142/72; PULSE 69; RESP 14; TEMP 36.6; O2SAT 93
[2022-07-13 16:40] LABS: Bedside Glucose 121 mg/dL (74-106)
[2022-07-13] MEDS: Rivaroxaban 10 MG Tablet PO (18:05)
--- NOTE | 2022-07-13 21:17 | NURSING ---
Patient put call light on at approximately 9pm. This nurse entered room, patient sitting in recliner, attempted to speak, speech was garbled. Was able to understand him say something is wrong. Rapid Response called at this time. VS obtained BP 182/81-74-18-94% RA. Patient is diabetic, BS obtained, 59. Physician in room at this time. Patient able to follow some direction with pushing, pulling, eye tracking. Attempted to give him some orange juice, he was unable to suck through the straw. Physician wanted patient sent to ED for CT d/t slurred speech, stroke-like symptoms. Report called per ramp and cargo supervisor. Patient transported to ED at this time.
[2022-07-13 21:21] LABS: Bedside Glucose 59 mg/dL (74-106)
[2022-07-13 21:55] LABS: Bedside Glucose 53 mg/dL (74-106)
--- NOTE | 2022-07-13 23:45 | NURSING ---
Patient returned from ED, had been given IV D5W, orange juice and a sandwich while there. CT scan negative. Labs show WBC elevated. Blood sugar rechecked at this time, with result of 222. BP 121/65, P 72. HS medications administered. Will continue to monitor.
[2022-07-14] MEDS: Insulin Glargine-YFGN 100 UNIT/ML Pen 40 UNIT SC ×2 (00:02→21:36)
[2022-07-14] MEDS: Acetaminophen 500 MG Tablet 1000 MG PO ×4 (00:03→17:26)
[2022-07-14] MEDS: MELATONIN 10 MG TABLET PO (00:03)
[2022-07-14] MEDS: Atenolol 25 MG Tablet PO ×2 (00:03→21:34)
[2022-07-14] MEDS: Atorvastatin Calcium 40 MG Tablet PO ×2 (00:03→21:39)
[2022-07-14 00:25] LABS: Bedside Glucose 222 mg/dL (74-106)
[2022-07-14 06:30] LABS: Bedside Glucose 164 mg/dL (74-106)
[2022-07-14] MEDS: Levothyroxine 75 MCG Tablet PO (06:34)
[2022-07-14] MEDS: Losartan Potassium 50 MG Tablet PO (06:34)
[2022-07-14] MEDS: hydroCHLOROthiazide 12.5mg 12.5 MG PO (06:34)
--- NOTE | 2022-07-14 06:46 | NURSING ---
Discussed s/s of low blood sugar and need for nearby snacks when feeling s/s prior to having a severe hypoglycemic event. Snacks given to patient to keep at bedside. Encouraged small snacks throughout the day to try to maintain appropriate blood sugar level for patient. Patient verbalized understanding. Will continue to monitor.
[2022-07-14] MEDS: Etodolac 200 MG Capsule 400 MG PO ×2 (08:05→17:26)
[2022-07-14] MEDS: metFORMIN HCl 850 MG Tablet PO ×2 (08:05→17:26)
[2022-07-14] MEDS: Insulin Lispro 100 UNIT/ML INSULN.PEN 9 UNIT SC ×3 (08:05→17:50)
[2022-07-14 11:30] LABS: Bedside Glucose 135 mg/dL (74-106)
--- NOTE | 2022-07-14 13:15 | MDS.RN ---
Pain interview for SANTO 07/17/22.
[2022-07-14 15:25] VITALS: BP 129/50; PULSE 63; RESP 20; TEMP 36.7; O2SAT 95
[2022-07-14 17:25] LABS: Bedside Glucose 138 mg/dL (74-106)
[2022-07-14] MEDS: Rivaroxaban 10 MG Tablet PO (17:26)
[2022-07-14] MEDS: Senna/Docusate Sodium 1 Tablet PO (17:26)
[2022-07-14 21:41] VITALS: PULSE 64; RESP 18; O2SAT 95
[2022-07-14 21:55] LABS: Bedside Glucose 155 mg/dL (74-106)
[2022-07-15] MEDS: Acetaminophen 500 MG Tablet 1000 MG PO ×5 (00:06→23:21)
[2022-07-15] MEDS: Losartan Potassium 50 MG Tablet PO (05:53)
[2022-07-15] MEDS: Levothyroxine 75 MCG Tablet PO (05:53)
[2022-07-15] MEDS: hydroCHLOROthiazide 12.5mg 12.5 MG PO (05:53)
[2022-07-15 06:35] LABS: Bedside Glucose 97 mg/dL (74-106)
[2022-07-15] MEDS: Etodolac 200 MG Capsule 400 MG PO ×2 (08:35→18:13)
[2022-07-15] MEDS: metFORMIN HCl 850 MG Tablet PO ×2 (08:35→18:13)
--- NOTE | 2022-07-15 11:19 | CASEMGMT ---
Social Work BIMS () and PHQ-9 (09/26) completed for MDS assessment. Shu Durbin MSW ARTERIAL EMBALMER
[2022-07-15 11:30] LABS: Bedside Glucose 151 mg/dL (74-106)
[2022-07-15] MEDS: Insulin Lispro 100 UNIT/ML INSULN.PEN 9 UNIT SC ×2 (12:05→18:16)
[2022-07-15 14:42] VITALS: BP 132/64; PULSE 72; RESP 16; TEMP 36.7; O2SAT 96
[2022-07-15 16:40] LABS: Bedside Glucose 114 mg/dL (74-106)
[2022-07-15] MEDS: Rivaroxaban 10 MG Tablet PO (18:14)
[2022-07-15 20:46] VITALS: PULSE 71; RESP 18; O2SAT 96
[2022-07-15 21:55] LABS: Bedside Glucose 82 mg/dL (74-106)
[2022-07-15] MEDS: MELATONIN 10 MG TABLET PO (23:18)
[2022-07-15] MEDS: Atorvastatin Calcium 40 MG Tablet PO (23:18)
[2022-07-15] MEDS: Atenolol 25 MG Tablet PO (23:19)
[2022-07-15 23:31] LABS: Bedside Glucose 94 mg/dL (74-106)
[2022-07-16] MEDS: Acetaminophen 500 MG Tablet 1000 MG PO ×3 (05:15→17:57)
[2022-07-16] MEDS: Levothyroxine 75 MCG Tablet PO (05:15)
[2022-07-16] MEDS: hydroCHLOROthiazide 12.5mg 12.5 MG PO (05:15)
[2022-07-16] MEDS: Losartan Potassium 50 MG Tablet PO (05:15)
[2022-07-16 06:45] LABS: Bedside Glucose 149 mg/dL (74-106)
[2022-07-16] MEDS: Insulin Lispro 100 UNIT/ML INSULN.PEN 9 UNIT SC ×3 (08:28→17:57)
[2022-07-16] MEDS: metFORMIN HCl 850 MG Tablet PO ×2 (08:30→17:58)
[2022-07-16] MEDS: Etodolac 200 MG Capsule 400 MG PO ×2 (08:30→17:57)
[2022-07-16 10:00] VITALS: PULSE 94; RESP 16; O2SAT 95
[2022-07-16 12:05] LABS: Bedside Glucose 203 mg/dL (74-106)
--- NOTE | 2022-07-16 13:55 | RAD_ITS ---
INDICATION: Diarrhea EXAMINATION/TECHNIQUE: X-RAY - XR Abdomen 1 View COMPARISON: none FINDINGS: BOWEL GAS PATTERN: Non-obstructive. No bowel or stomach distention. FREE AIR: Not assessed on a single supine view. ORGANOMEGALY: Not seen. CALCIFICATIONS: No abnormal calcifications observed. LOWER CHEST: No acute pathology. BONES AND SOFT TISSUES: Diffuse lumbar degenerative changes are present. Moderate hip arthrosis with decreased joint space is present. RAD/Abdomen Single View IMPRESSION: Non-obstructive bowel gas pattern. Electronically Signed: Jimmie Schofield DO at 14:24 EST ,
[2022-07-16 15:43] VITALS: BP 106/68; PULSE 77; RESP 16; TEMP 36.9; O2SAT 95
[2022-07-16] MEDS: Rivaroxaban 10 MG Tablet PO (17:57)
[2022-07-16 18:00] LABS: Bedside Glucose 159 mg/dL (74-106)
[2022-07-16] MEDS: MELATONIN 10 MG TABLET PO (21:35)
[2022-07-16] MEDS: Insulin Glargine-YFGN 100 UNIT/ML Pen 40 UNIT SC (21:35)
[2022-07-16] MEDS: Atenolol 25 MG Tablet PO (21:35)
[2022-07-16] MEDS: Atorvastatin Calcium 40 MG Tablet PO (21:35)
[2022-07-16 21:45] LABS: Bedside Glucose 221 mg/dL (74-106)
[2022-07-17] MEDS: Acetaminophen 500 MG Tablet 1000 MG PO ×4 (00:23→17:55)
[2022-07-17] MEDS: hydroCHLOROthiazide 12.5mg 12.5 MG PO (05:04)
[2022-07-17] MEDS: Levothyroxine 75 MCG Tablet PO (05:04)
[2022-07-17] MEDS: Losartan Potassium 50 MG Tablet PO (05:04)
--- NOTE | 2022-07-17 05:07 | NURSING ---
Lab results negative for C-diff. Will continue to hold stool softener and monitor.
[2022-07-17 06:50] LABS: Bedside Glucose 190 mg/dL (74-106)
[2022-07-17] MEDS: Insulin Lispro 100 UNIT/ML INSULN.PEN 9 UNIT SC ×3 (08:58→17:56)
[2022-07-17] MEDS: metFORMIN HCl 850 MG Tablet PO ×2 (08:58→16:56)
[2022-07-17] MEDS: Etodolac 200 MG Capsule 400 MG PO ×2 (08:58→16:56)
[2022-07-17 11:50] LABS: Bedside Glucose 241 mg/dL (74-106)
[2022-07-17 14:49] VITALS: BP 130/58; PULSE 60; RESP 14; TEMP 36.5; O2SAT 96
[2022-07-17] MEDS: Rivaroxaban 10 MG Tablet PO (16:56)
[2022-07-17 17:10] LABS: Bedside Glucose 164 mg/dL (74-106)
[2022-07-17 21:46] LABS: Bedside Glucose 157 mg/dL (74-106)
[2022-07-17] MEDS: Insulin Glargine-YFGN 100 UNIT/ML Pen 40 UNIT SC (22:24)
[2022-07-17] MEDS: Atenolol 25 MG Tablet PO (22:25)
[2022-07-17] MEDS: MELATONIN 10 MG TABLET PO (22:25)
[2022-07-17] MEDS: Atorvastatin Calcium 40 MG Tablet PO (22:25)
[2022-07-18] MEDS: Menthol/Lanolin/Calamine/Znox 113 GM Tube 1 APPLIC TOPICAL ×2 (04:40→17:27)
[2022-07-18] MEDS: Acetaminophen 500 MG Tablet 1000 MG PO ×4 (04:41→23:07)
[2022-07-18] MEDS: Losartan Potassium 50 MG Tablet PO (04:42)
[2022-07-18] MEDS: Levothyroxine 75 MCG Tablet PO (04:42)
[2022-07-18] MEDS: hydroCHLOROthiazide 12.5mg 12.5 MG PO (04:42)
[2022-07-18 05:58] LABS: Absolute Lymphocyte Count 2.11 X10^3/uL (0.83-4.51); Absolute Neutrophil Count 6.1 X10^3/uL (2.0-7.7); Basophil# 0.04 X10^3/uL; Basophil% 0.4 % (0-1); Eosinophil# 0.17 X10^3/uL; Eosinophils% 1.8 % (0-5); Hematocrit 41.2 % (40-54); Hemoglobin 13.1 g/dL (13.0-16.5); Lymphocyte # 2.11 X10^3/ul (0.83-4.51); Lymphocyte % 21.8 % (19-41); Mean Corp Hgb Conc 31.8 g/dL (32-36); Mean Corpuscular Hgb 28.1 pg (27.0-32.0); Mean Corpuscular Volume 88.2 fL (80-94); Monocyte% 12.4 % (0-10); NRBC Flagged by Analyzer 0 % (0-5); Neutrophil # 6.08 X10^3/uL (2.7-7.7); Neutrophil % 62.7 % (47-70); Platelet Count 256 K/mm3 (150-450); RBC Distribution Width CV 13.6 % (11.6-14.6); RBC Distribution Width SD 43.7 fl (35.1-43.9); Red Blood Count 4.67 M/mm3 (4.6-6.2); White Blood Count 9.7 K/mm3 (4.4-11.0)
[2022-07-18 06:30] LABS: Anion Gap 7 (5-15); BUN 44 mg/dL (7-18); BUN/Creat Ratio 34.1 RATIO (10-20); Calcium,Total 8.5 mg/dL (8.5-10.1); Chloride 111 mmol/L (98-107); Creatinine, Serum 1.29 mg/dL (0.70-1.30); EST Glomerular Filtration Rate 57 mL/min (>60); Est Glom Filt Rate - Afr Amer 69 mL/min (>60); Estimated Creatinine Clearance 41.28 ml/min; Glucose 104 mg/dL (74-106); Potassium 3.9 mmol/L (3.5-5.1); Sodium Level 143 mmol/L (136-145)
[2022-07-18 06:35] LABS: Bedside Glucose 93 mg/dL (74-106)
[2022-07-18] MEDS: Insulin Lispro 100 UNIT/ML INSULN.PEN 9 UNIT SC (08:28)
[2022-07-18] MEDS: Etodolac 200 MG Capsule 400 MG PO ×2 (08:29→17:24)
[2022-07-18] MEDS: metFORMIN HCl 850 MG Tablet PO ×2 (08:29→17:24)
--- NOTE | 2022-07-18 09:00 | NURSING ---
Double Needle Operator Note; MDS for 07/17/2022 Complete
[2022-07-18] MEDS: Tuberculin,Purif.prot.deriv. 50 TU/ML Vial 0.1 ML ID (10:38)
--- NOTE | 2022-07-18 12:33 | NURSING ---
dr wiseman notified of blood sugar 85, new order to decrease HS glargine and hold humalog at this time. pt updated and verbalized understanding
[2022-07-18 16:00] VITALS: BP 136/77; PULSE 76; RESP 17; TEMP 36.6; O2SAT 96
[2022-07-18 16:40] LABS: Bedside Glucose 85 mg/dL (74-106)
[2022-07-18 16:40] LABS: Bedside Glucose 84 mg/dL (74-106)
[2022-07-18] MEDS: Rivaroxaban 10 MG Tablet PO (17:24)
--- NOTE | 2022-07-18 17:29 | NURSING ---
blood sugar 124, dr wiseman updated, new order to hold humalog and decrease glargine to 20 units at HS. pt updated.
[2022-07-18 17:55] LABS: Bedside Glucose 124 mg/dL (74-106)
[2022-07-18] MEDS: Atorvastatin Calcium 40 MG Tablet PO (21:33)
[2022-07-18] MEDS: MELATONIN 10 MG TABLET PO (21:34)
[2022-07-18] MEDS: Atenolol 25 MG Tablet PO (21:34)
[2022-07-18 21:36] LABS: Bedside Glucose 162 mg/dL (74-106)
[2022-07-18] MEDS: Insulin Glargine-YFGN 100 UNIT/ML Pen 20 UNIT SC (21:36)
[2022-07-18 21:44] VITALS: BP 152/67; PULSE 70
[2022-07-18 21:45] VITALS: PULSE 70; RESP 16; O2SAT 96
[2022-07-19 06:25] VITALS: BP 138/79; PULSE 62
[2022-07-19] MEDS: Losartan Potassium 50 MG Tablet PO (06:37)
[2022-07-19] MEDS: Menthol/Lanolin/Calamine/Znox 113 GM Tube 1 APPLIC TOPICAL ×2 (06:37→17:18)
[2022-07-19] MEDS: Acetaminophen 500 MG Tablet 1000 MG PO ×4 (06:37→23:03)
[2022-07-19] MEDS: Levothyroxine 75 MCG Tablet PO (06:37)
[2022-07-19 06:40] LABS: Bedside Glucose 88 mg/dL (74-106)
--- NOTE | 2022-07-19 06:46 | NURSING ---
AM gluc. scan 88. 8oz of orange juice given. Denies lightheadedness, FUNES, fatigue, and nausea. Voices he feels like his baseline.
[2022-07-19] MEDS: hydroCHLOROthiazide 12.5mg 12.5 MG PO (08:38)
[2022-07-19] MEDS: metFORMIN HCl 850 MG Tablet PO ×2 (08:38→17:17)
[2022-07-19] MEDS: Etodolac 200 MG Capsule 400 MG PO ×2 (08:39→17:16)
[2022-07-19 11:26] LABS: Bedside Glucose 159 mg/dL (74-106)
--- NOTE | 2022-07-19 12:43 | CHAPLAIN ---
Type of Pastoral Visit ___ Initial Visit _x__ Follow-up Visit ___ On-call Visit ___ General Patient Visit ___ Spiritual Assessment ___ Family Conference ___ Bereavement ___ Rapid Response ___ Code Blue ___ Other (describe below) Pastoral Care Referral From _x__ Patient ___ Family ___ Nurse ___ Physician ___ Power System Electrical Engineer ___ Hammer Repairer ___ Other (describe below) Sacrament/Intervention _x__ Active listening ___ Anointing ___ Jainism ___ Bereavement ___ Communion ___ Ann exploration ___ _x__ Life review ___ Prayer ___ Reconciliation ___ Sacrament of Sick _x__ Supportive presence ___ Wedding ___ Other (describe below) Pastoral Comments patient is sitting in chair watching TV; pt is welcoming and states how he is doing today; pt continues concern for his in ECF and that she fell yesterday; pt feels he is making progress and should go home soon; 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
--- NOTE | 2022-07-19 14:32 | CASEMGMT ---
Addendum entered by Shu Durbin 07/20/22 15:18: [facility] is unable to service area. Pt's next preference is [facility]. Referral made via [facility] - they can accept. Addendum entered by Shu Durbin 07/20/22 12:29: Followed up with pt on choice for skilled HHC. Pt requesting [facility]. Referral sent via [facility]. Original Note: Social Work Spoke with pt about setting DC date. Pt would like DC 07/25, son can transport. Pt requesting HHC PT/OT. SW provided skilled HHC agency list with quality and resource data via [facility] Guide. Pt to review and select provider. No DME needs. Plan: DC home 07/25, HHC PT/OT [facility]
[2022-07-19 14:40] VITALS: BP 141/69; PULSE 62; RESP 18; TEMP 36.5; O2SAT 96
[2022-07-19 17:15] LABS: Bedside Glucose 230 mg/dL (74-106)
[2022-07-19] MEDS: Rivaroxaban 10 MG Tablet PO (17:17)
--- NOTE | 2022-07-19 18:55 | DS.PCM_ITS ---
Providers Date of Admission: 07/10/22 Primary Care Physician: Dr. Demetris Fuentes MD Reason For Visit: LEFT SIDED WEAKNESS Diagnosis Discharge Diagnosis (1) Debility: Status: Acute Code(s): R53.81 - Other malaise (2) Left-sided weakness: Status: Acute Code(s): R53.1 - Weakness (3) Arm paresthesia, left: Status: Resolved Code(s): R20.2 - Paresthesia of skin (4) Left cervical radiculopathy: Status: Acute Code(s): M54.12 - Radiculopathy, cervical region (5) Diabetes mellitus: Status: Acute Code(s): E11.9 - Type 2 diabetes mellitus without complications (6) Hypertension: Status: Chronic Code(s): I10 - Essential (primary) hypertension (7) Hyperlipidemia: Status: Acute Code(s): E78.5 - Hyperlipidemia, unspecified (8) Hypothyroidism: Status: Acute Code(s): E03.9 - Hypothyroidism, unspecified (9) Osteoarthritis: Status: Acute Code(s): M19.90 - Unspecified osteoarthritis, unspecified site (10) Stroke: Status: Acute Code(s): I63.9 - Cerebral infarction, unspecified Plan 81 year old male with below past medical history hospitalized for left sided weakness, stroke ruled out, complicated by left cervical radiculopathy, admitted to TCU with debility, here for rehabilitation, strengthening, prior to discharge home alone. * Debility - PT/OT. * Pain - Tylenol 1000mg q6h prn pain (1-10). * Bowel - senna/colace 1 tablet bid, MOM 30ml po x 1 prn. * Adult immunization - Administer pneumonia vaccine, covid19 vaccine, flu vaccine as appropriate. * DVT prophylaxis - HAS-BLED score 3, high risk of bleeding, Benito score 5, high risk of blood clots, Rx Xarelto 10mg daily x 2 weeks, stop if hemoglobin dropping. * Stroke - Aspirin 325mg daily. * Hypertension - Atenolol 25mg qhs, Losartan 50mg daily, HCTZ 12.5mg daily. * Hyperlipidemia - Atorvastatin 40mg qhs. * Osteoarthritis - Etodolac 400mg bidcm. * Diabetes Mellitus II - Metformin 850mg bidcm, Glargine 40 units qhs, Lispro 8 units tidcm. * Hypothyroidism - Levothyroxine 75mc daily. * CAD - Atenolol 25mg qhs, Losartan 50mg daily, Aspirin 325mg daily, NTG 0.4mg q5m prn. Medications at Discharge Home Medications aspirin 325 mg tablet 325 mg PO DAILY@0800 HEALTH MAINTENANCE 08/20/16 atenolol 25 mg tablet 25 mg PO QHS BP 08/20/16 atorvastatin 40 mg tablet 40 mg PO QHS CHOLESTEROL 08/20/16 levothyroxine 75 mcg tablet 75 mcg PO DAILY THYROID 08/20/16 losartan 50 mg tablet (Cozaar) 50 mg PO DAILY BP 08/20/16 metformin 850 mg tablet 850 mg PO BIDCM DM 08/20/16 nitroglycerin 0.4 mg sublingual tablet 0.4 mg sublingual Q5M PRN Chest Pain etodolac 400 mg tablet 400 mg PO BID PAIN 11/09/21 hydrochlorothiazide 12.5 mg capsule 12.5 mg PO DAILY BP 07/06/22 omega-3 fatty acids 1,000 mg PO DAILY SUPPLEMENT 07/06/22 acetaminophen 500 mg tablet 1,000 mg PO Q6 #0 tabs 07/19/22 insulin glargine-yfgn 100 unit/mL (3 mL) subcutaneous pen 20 unit (0.2 mL) subcut QHS #0 mL 07/19/22 Hospital Course Operations None Procedures None Summary of Care Provided Minutes Spent on Discharge: 35 Hospital Course: 81 year old male with below past medical history hospitalized for left sided weakness, stroke ruled out, complicated by left cervical radiculopathy, admitted to TCU with debility, here for rehabilitation, strengthening, prior to discharge home alone. Discharge home alone 07/25/2022, Home Health Care PT/OT, No DME. Physical Exam Const alert General Appearance: cooperative HEENT normocephalic Eyes PERRL and EOMs intact bilaterally Neck supple, no JVD and no carotid bruits Resp normal respiratory effort, normal air movement and clear to auscultation bilaterally Cardio regular rate and regular rhythm GI normal to inspection, nondistended, normoactive bowel sounds, non-tender and non-distended Extremity normal capillary refill General Extremity: Negative for edema Skin no rashes or lesions noted General Skin Exam: no breakdown Psych affect normal Appearance: appropriate Weight / BMI Weight Weight: 110.314 kg Body Mass Index (BMI) 38.1 ABG / Lab / Microbiology Data Result Diagrams: 07/18/22 05:26 07/18/22 05:26 Laboratory: Laboratory Results - last 24 hr 07/18/22 21:09: POC Glucose 162 H 07/19/22 06:09: POC Glucose 88 07/19/22 10:35: POC Glucose 159 H 07/19/22 16:48: POC Glucose 230 H Microbiology: Microbiology 07/16/22 23:30 Stool C. difficile DNA Amplification - Final 07/14/22 06:40 Nasal Secretion SARS-CoV-2 Antigen (Rapid) - Final 07/12/22 06:45 Nasal Secretion SARS-CoV-2 Antigen (Rapid) - Final D/C Instructions Discharge Diet: No restrictions Discharge Activity: Return to Normal Activity, May Shower and Use Walker Weight Bearing Status: Weight bearing as tolerated Call your doctor if you observe: Fever of 101 or Higher, Inability to urinate, Inability to have a bowel movement, Shortness of breath, Dizziness, Fainting s pells, Swelling in the ankles, Chest pain and Uncontrolled pain Additional Instructions: Discharge home alone 07/25/2022, Home Health Care PT/OT, No DME. Meaningful Use Info Meaningful Use Diagnoses (Choose all that apply): None applicable Discharge Plan Admission Admit Date/Time: 07/10/22 15:28 Primary Reason for Your Visit: Debility. Attending Provider: Sam Black Chi Primary Care Provider: Demetris Fuentes Instructions Additional Instructions / Restrictions: Discharge home alone 07/25/2022, Home Health Care PT/OT, No DME. Discharge Orders/Prescriptions Prescriptions: New acetaminophen 500 mg Tablet 1,000 mg PO Q6 Qty: 0 0RF insulin glargine-yfgn 100 unit/mL (3 mL) Insulin Pen 20 unit subcut QHS Qty: 0 0RF Continued losartan [Cozaar] 50 MG tablet 50 mg PO DAILY atorvastatin 40 MG tablet 40 mg PO QHS aspirin 325 MG tablet 325 mg PO DAILY@0800 metformin 850 MG tablet 850 mg PO BIDCM Hold Instructions: Resume on 07/11/22. atenolol 25 MG tablet 25 mg PO QHS levothyroxine 75 MCG tablet 75 mcg PO DAILY nitroglycerin 0.4 MG tablet 0.4 mg sublingual Q5M PRN (Reason: Chest Pain) etodolac 400 mg tablet 400 mg PO BID hydrochlorothiazide 12.5 mg capsule 12.5 mg PO DAILY omega-3 fatty acids Capsule 1,000 mg PO DAILY Discontinued insulin lispro [Humalog KwikPen Insulin] 100 UNIT/ML insulin pen 9 unit SQ TIDCM acetaminophen [Tylenol] 325 mg Tablet 650 mg PO Q6H PRN PRN (Reason: Pain 1-10 Or Fever >100.7) Qty: 0 0RF insulin lispro [Humalog KwikPen Insulin] 100 unit/mL insulin pen See Protocol subcut TIDAC Protocol: 3. Sliding Scale Insulin Med Dosing Condition: 150-189 mg/dl = 1 unit Condition: 190-229 mg/dl = 2 units Condition: 230-269 mg/dl = 3 units Condition: 270-309 mg/dl = 4 units Condition: 310-349 mg/dl = 5 units Condition: 350-399 mg/dl = 6 units Condition: 400-449 mg/dl = 7 units Condition: Greater than 449 call physician Protocol Text: - Use for Total Daily Dose of Insulin 37-55 units - Obsese, infected, or steroid patients MEDIUM DOSING ALGORITHIM insulin glargine-yfgn 100 unit/mL (3 mL) insulin pen 40 unit subcut QHS Referrals / Follow Up: Demetris Fuentes MD [Primary Care Provider] - Disposition Disposition (needs filled in before D/C Order can be placed): Home Health Service
[2022-07-19] MEDS: MELATONIN 10 MG TABLET PO (21:45)
[2022-07-19] MEDS: Atorvastatin Calcium 40 MG Tablet PO (21:45)
[2022-07-19] MEDS: Atenolol 25 MG Tablet PO (21:46)
[2022-07-19] MEDS: Insulin Glargine-YFGN 100 UNIT/ML Pen 20 UNIT SC (21:56)
[2022-07-19 22:00] VITALS: PULSE 92; RESP 16; O2SAT 93
[2022-07-19 22:16] LABS: Bedside Glucose 173 mg/dL (74-106)
[2022-07-20] MEDS: Acetaminophen 500 MG Tablet 1000 MG PO ×4 (06:29→23:12)
[2022-07-20] MEDS: hydroCHLOROthiazide 12.5mg 12.5 MG PO (06:29)
[2022-07-20] MEDS: Menthol/Lanolin/Calamine/Znox 113 GM Tube 1 APPLIC TOPICAL ×2 (06:30→17:42)
[2022-07-20] MEDS: Levothyroxine 75 MCG Tablet PO (06:30)
[2022-07-20 07:01] LABS: Bedside Glucose 115 mg/dL (74-106)
[2022-07-20] MEDS: Losartan Potassium 50 MG Tablet PO (08:32)
[2022-07-20] MEDS: metFORMIN HCl 850 MG Tablet PO ×2 (08:32→17:40)
[2022-07-20] MEDS: Etodolac 200 MG Capsule 400 MG PO ×2 (08:32→17:40)
[2022-07-20 11:30] LABS: Bedside Glucose 213 mg/dL (74-106)
[2022-07-20 14:21] VITALS: BP 144/60; PULSE 77; RESP 20; TEMP 36.8; O2SAT 97
[2022-07-20 16:45] LABS: Bedside Glucose 165 mg/dL (74-106)
[2022-07-20] MEDS: Rivaroxaban 10 MG Tablet PO (17:40)
[2022-07-20] MEDS: Senna/Docusate Sodium 1 Tablet PO (17:40)
[2022-07-20] MEDS: Insulin Glargine-YFGN 100 UNIT/ML Pen 20 UNIT SC (22:06)
[2022-07-20] MEDS: MELATONIN 10 MG TABLET PO (22:06)
[2022-07-20] MEDS: Atenolol 25 MG Tablet PO (22:06)
[2022-07-20] MEDS: Atorvastatin Calcium 40 MG Tablet PO (22:06)
[2022-07-20 22:10] LABS: Bedside Glucose 182 mg/dL (74-106)
[2022-07-21 06:00] VITALS: BP 147/71; PULSE 68; RESP 16
[2022-07-21] MEDS: hydroCHLOROthiazide 12.5mg 12.5 MG PO (06:02)
[2022-07-21] MEDS: Levothyroxine 75 MCG Tablet PO (06:02)
[2022-07-21] MEDS: Menthol/Lanolin/Calamine/Znox 113 GM Tube 1 APPLIC TOPICAL ×2 (06:02→17:15)
[2022-07-21] MEDS: Acetaminophen 500 MG Tablet 1000 MG PO ×3 (06:02→17:15)
[2022-07-21 06:36] LABS: Bedside Glucose 143 mg/dL (74-106)
[2022-07-21] MEDS: metFORMIN HCl 850 MG Tablet PO ×2 (08:52→17:15)
[2022-07-21] MEDS: Etodolac 200 MG Capsule 400 MG PO ×2 (08:52→17:15)
[2022-07-21] MEDS: Losartan Potassium 50 MG Tablet PO (08:53)
[2022-07-21 08:54] VITALS: BP 164/73; PULSE 67
[2022-07-21 11:56] LABS: Bedside Glucose 160 mg/dL (74-106)
--- NOTE | 2022-07-21 12:54 | MDS.RN ---
Information for the mds was obtained from review of the clinical record, interview of resident, staff, and direct observation of resident's care.
[2022-07-21 14:34] VITALS: BP 150/65; PULSE 66; RESP 20; TEMP 36.6; O2SAT 95
[2022-07-21 17:10] LABS: Bedside Glucose 216 mg/dL (74-106)
[2022-07-21] MEDS: Senna/Docusate Sodium 1 Tablet PO (17:15)
[2022-07-21] MEDS: Rivaroxaban 10 MG Tablet PO (17:15)
[2022-07-21 21:22] VITALS: PULSE 60; RESP 16; O2SAT 96
[2022-07-21] MEDS: Insulin Glargine-YFGN 100 UNIT/ML Pen 20 UNIT SC (21:30)
[2022-07-21] MEDS: Atorvastatin Calcium 40 MG Tablet PO (21:30)
[2022-07-21] MEDS: MELATONIN 10 MG TABLET PO (21:30)
[2022-07-21] MEDS: Atenolol 25 MG Tablet PO (21:30)
[2022-07-21 21:35] LABS: Bedside Glucose 209 mg/dL (74-106)
[2022-07-22] MEDS: Levothyroxine 75 MCG Tablet PO (06:23)
[2022-07-22] MEDS: hydroCHLOROthiazide 12.5mg 12.5 MG PO (06:23)
[2022-07-22] MEDS: Acetaminophen 500 MG Tablet 1000 MG PO ×4 (06:23→23:00)
[2022-07-22] MEDS: Menthol/Lanolin/Calamine/Znox 113 GM Tube 1 APPLIC TOPICAL ×2 (06:28→17:29)
[2022-07-22 06:31] LABS: Bedside Glucose 126 mg/dL (74-106)
[2022-07-22] MEDS: Losartan Potassium 50 MG Tablet PO (08:14)
[2022-07-22] MEDS: metFORMIN HCl 850 MG Tablet PO ×2 (08:14→17:27)
[2022-07-22] MEDS: Etodolac 200 MG Capsule 400 MG PO ×2 (08:14→17:27)
[2022-07-22 08:57] VITALS: PULSE 78; RESP 16; O2SAT 93
--- NOTE | 2022-07-22 10:37 | CASEMGMT ---
Social Work BIMS () and PHQ-9 (09/26) completed for MDS assessment. Shu Durbin MSW PACKING AND FINAL ASSEMBLY SUPERVISOR
[2022-07-22 11:45] LABS: Bedside Glucose 211 mg/dL (74-106)
[2022-07-22 14:52] VITALS: BP 132/69; PULSE 74; RESP 16; TEMP 36.6
[2022-07-22 16:35] LABS: Bedside Glucose 145 mg/dL (74-106)
[2022-07-22] MEDS: Rivaroxaban 10 MG Tablet PO (17:27)
[2022-07-22 21:45] LABS: Bedside Glucose 187 mg/dL (74-106)
[2022-07-22] MEDS: MELATONIN 10 MG TABLET PO (21:53)
[2022-07-22] MEDS: Atorvastatin Calcium 40 MG Tablet PO (21:53)
[2022-07-22] MEDS: Atenolol 25 MG Tablet PO (21:53)
[2022-07-22] MEDS: Insulin Glargine-YFGN 100 UNIT/ML Pen 20 UNIT SC (21:54)
[2022-07-23] MEDS: Menthol/Lanolin/Calamine/Znox 113 GM Tube 1 APPLIC TOPICAL ×2 (06:15→17:25)
[2022-07-23] MEDS: hydroCHLOROthiazide 12.5mg 12.5 MG PO (06:15)
[2022-07-23] MEDS: Levothyroxine 75 MCG Tablet PO (06:15)
[2022-07-23] MEDS: Acetaminophen 500 MG Tablet 1000 MG PO ×3 (06:15→17:24)
[2022-07-23 06:16] VITALS: BP 135/66; PULSE 67
[2022-07-23 06:50] LABS: Bedside Glucose 154 mg/dL (74-106)
[2022-07-23] MEDS: Etodolac 200 MG Capsule 400 MG PO ×2 (08:18→17:24)
[2022-07-23] MEDS: Losartan Potassium 50 MG Tablet PO (08:19)
[2022-07-23] MEDS: metFORMIN HCl 850 MG Tablet PO ×2 (08:19→17:24)
[2022-07-23 11:26] LABS: Bedside Glucose 148 mg/dL (74-106)
[2022-07-23 14:08] VITALS: BP 139/57; PULSE 75; RESP 17; TEMP 36.6; O2SAT 98
[2022-07-23 17:06] LABS: Bedside Glucose 166 mg/dL (74-106)
[2022-07-23] MEDS: Rivaroxaban 10 MG Tablet PO (17:24)
[2022-07-23 21:45] LABS: Bedside Glucose 178 mg/dL (74-106)
[2022-07-23] MEDS: Insulin Glargine-YFGN 100 UNIT/ML Pen 20 UNIT SC (22:10)
[2022-07-23] MEDS: Atorvastatin Calcium 40 MG Tablet PO (22:12)
[2022-07-23] MEDS: MELATONIN 10 MG TABLET PO (22:12)
[2022-07-23] MEDS: Atenolol 25 MG Tablet PO (22:13)
[2022-07-23 23:09] VITALS: PULSE 67; RESP 18; O2SAT 97
--- NOTE | 2022-07-24 02:52 | NURSING ---
Patient was taken to ICU to visit his . Returned at approx 2:30 AM. has passed. 1 to 1 given. Patient appreciative of all the staff.
[2022-07-24] MEDS: hydroCHLOROthiazide 12.5mg 12.5 MG PO (06:11)
[2022-07-24] MEDS: Acetaminophen 500 MG Tablet 1000 MG PO ×2 (06:11)
[2022-07-24] MEDS: Levothyroxine 75 MCG Tablet PO (06:11)
[2022-07-24] MEDS: Menthol/Lanolin/Calamine/Znox 113 GM Tube 1 APPLIC TOPICAL (06:12)
[2022-07-24 06:45] LABS: Bedside Glucose 174 mg/dL (74-106)
[2022-07-24 08:23] VITALS: BP 141/52; PULSE 68
[2022-07-24] MEDS: metFORMIN HCl 850 MG Tablet PO (08:25)
[2022-07-24] MEDS: Etodolac 200 MG Capsule 400 MG PO (08:25)
[2022-07-24] MEDS: Losartan Potassium 50 MG Tablet PO (08:25)
[2022-07-24 10:00] VITALS: PULSE 68; RESP 16
--- NOTE | 2022-07-24 10:42 | NURSING ---
Patient requesting to DC today, spoke w/ Dr Black, verbal order to change DC date today. Clarified about blood thinner, patient was supposed to have last doses tomorrow, per Dr Black ok for him to stop now.
[2022-07-24 12:16] VITALS: BP 121/60; PULSE 68; RESP 18; TEMP 36.8; O2SAT 93
== END 2022-07-24 11:10 | disposition home health service (06) | DRG 74 ==
PROVIDERS: Admitting Provider Family Medicine Geriatric Medicine; PCP Family Medicine; Visit Provider Family Medicine Geriatric Medicine
DX: M54.12 Radiculopathy, cervical region (principal); E03.9 Hypothyroidism, unspecified; E11.9 Type 2 diabetes mellitus without complications; Z79.4 Long term (current) use of insulin; M19.90 Unspecified osteoarthritis, unspecified site; I10 Essential (primary) hypertension; E78.00 Pure hypercholesterolemia, unspecified; I25.10 Atherosclerotic heart disease of native coronary artery without angina pectoris; Z79.82 Long term (current) use of aspirin; Z79.899 Other long term (current) drug therapy; Z79.890 Hormone replacement therapy; Z79.84 Long term (current) use of oral hypoglycemic drugs
CPT/HCPCS: 36415; 74018; 80048; 82962; 85025; 87493; 87811; 97110; 97116; 97162; 97166; 97530; 97535; 97537; 97802

== ENCOUNTER 2022-07-13 21:10 | Emergency (ER) | payer MEDICARE, OTHER, SELFPAY ==
[2022-07-13 21:11] VITALS: BP 159/69; PULSE 76; RESP 22; TEMP 36.6; O2SAT 96; BMI 39.2
[2022-07-13 21:15] VITALS: BMI 39.2
[2022-07-13] MEDS: Dextrose 50%-Water 25 GM/50 ML DISP.SYRIN IV (21:15)
--- NOTE | 2022-07-13 21:22 | ED.RN ---
Pt blood sugar 53 upon arrival, given an amp of D50 IVP as well as orange juice. Sugar recheck 197. Pt speech clear and pt more alert. Dr. Calle notified.
--- NOTE | 2022-07-13 21:30 | EX.ED.DYSGE1 ---
HPI History of Present Illness Chief Complaint: Hypoglycemia Narrative Narrative: 81-year-old male presents from the transitional care unit with slurring of his speech, and difficulty speaking. It was reported that his blood sugar was only 59, and they gave him juice and could not bring it up. Patient does have past medical history of diabetes for which she is given insulin. In review of his EMR, he was admitted for stroke. History and physical initially is limited secondary to the patient's difficulty with speech. PFSH PFS Medical History Diabetes High cholesterol Hypertension Hypothyroid Lactose intolerance Osteoarthritis Stroke/cerebrovascular accident Home Medications aspirin 325 mg tablet 325 mg PO DAILY@0800 HEALTH MAINTENANCE 08/20/16 [History Last Taken 07/10/22 08:57] atenolol 25 mg tablet 25 mg PO QHS BP 08/20/16 [History Last Taken 07/09/22 21:08] atorvastatin 40 mg tablet 40 mg PO QHS CHOLESTEROL 08/20/16 [History Last Taken 07/09/22 21:08] insulin lispro 100 unit/mL subcutaneous pen (Humalog KwikPen (U-100) Insulin) 9 unit SQ TIDCM DM 08/20/16 [History Last Taken 07/10/22 12:43] levothyroxine 75 mcg tablet 75 mcg PO DAILY THYROID 08/20/16 [History Last Taken 07/10/22 06:12] losartan 50 mg tablet (Cozaar) 50 mg PO DAILY BP 08/20/16 [History Last Taken 07/06/22] metformin 850 mg tablet 850 mg PO BIDCM DM 08/20/16 [History Last Taken 07/06/22] nitroglycerin 0.4 mg sublingual tablet 0.4 mg sublingual Q5M PRN Chest Pain 08/20/16 [History Last Taken Unknown] etodolac 400 mg tablet 400 mg PO BID PAIN 11/09/21 [History Last Taken 07/10/22 08:58] hydrochlorothiazide 12.5 mg capsule 12.5 mg PO DAILY BP 07/06/22 [History Last Taken 07/10/22 08:57] omega-3 fatty acids 1,000 mg PO DAILY SUPPLEMENT 07/06/22 [History Last Taken 07/06/22] acetaminophen 325 mg tablet (Tylenol) 650 mg PO Q6H PRN PRN Pain 1-10 Or Fever >100.7 #0 tabs 07/10/22 [Rx Last Taken Unknown] insulin glargine-yfgn 100 unit/mL (3 mL) subcutaneous pen 40 unit subcut QHS DM 07/10/22 [History Last Taken 07/09/22 21:07] insulin lispro 100 unit/mL subcutaneous pen (Humalog KwikPen (U-100) Insulin) See Protocol subcut TIDAC DM 07/10/22 [History Last Taken Unknown] Allergy/AdvReac Type Severity Reaction Status Date / Time iodine Allergy Swelling Verified 07/06/22 10:41 milk Allergy Upset Verified 07/10/22 18:02 Stomach Milk Containing Products Allergy Upset Verified 07/10/22 18:02 Stomach Surgical History History of appendectomy History of cholecystectomy History of tonsillectomy Social History household members: none Smoking Status: Never smoker alcohol intake: never substance use type: does not use ROS ROS ED ROS Narrative Limited secondary to patient condition/hypoglycemia. Unable to obtain from patient. Review of Systems ROS Unobtainable: due to mental condition EXAM Physical Exam Narrative Exam Narrative: Afebrile. Vital signs noted. HEENT: Normocephalic. Atraumatic. PERRL, EOMI. Neck soft and supple. No point tenderness or step off. Cardiovascular: Regular rate and rhythm. No murmurs, rubs, or gallops appreciated. Respiratory: No tachypnea. Lungs clear to auscultation bilaterally. Gastrointestinal: Abdomen soft, nontender, with normoactive bowel sounds. No rebound or guarding. Neurological: Awake. Alert. Nonfocal, nonlateralizing. Oriented to person. Slightly slurred speech at times. Skin: No rash. Normal color. No pallor. Musculoskeletal: No pedal edema. Full range of motion extremities. Const Vital Signs: 07/13/22 21:11 07/13/22 21:44 Temperature 98 F Temperature Source Temporal Pulse Rate 76 75 Respiratory Rate 22 H 18 Blood Pressure 159/69 H 144/80 H Blood Pressure Mean 99 101 Pulse Ox 96 95 Oxygen Delivery Method Room Air Room Air MDM MDM MDM Narrative Medical decision making narrative: Stroke team was not initially called because he was hypoglycemic. Blood sugar was in the 50s here. He was given sips of orange juice initially which showed improvement in speech and concentration. He was given an amp of D50. CT of the brain was obtained. I reviewed the imaging and agree with the radiology interpretation of no acute process or hemorrhage. There are chronic involutional changes. CBC was obtained, reviewed, and shows elevated white count of 16.8, hemoglobin normal at 14.9, platelet count 329. CMP obtained and reviewed, with glucose low at 58 but this was drawn before the orange juice and D50 was administered. Sodium is normal at 141, potassium 4.0, chloride 104. Repeat [id number] glucose was obtained and reviewed and is 197. He will be given a regular diet. Third [id number] glucose was obtained and is lower in the 150s. He will eat here and then we will recheck his blood sugar. EKG was obtained and interpreted by myself which demonstrates normal sinus rhythm at 73 bpm without ectopy or acute ST changes. I do feel that his problems with speech and concentration were secondary to hypoglycemia. In rechecking his sugar after eating, it is 179. At this point in time, I feel he can be discharged back to the transitional care unit as long as his blood sugar remains elevated. It will be up to nursing to check his blood sugars regularly before administration of his insulin and diabetic medications. Disposition is discharged in stable condition. Lab Data Attestation: I reviewed the patient's lab results. Labs: Laboratory Results - last 24 hr 07/13/22 07/13/22 07/13/22 21:15 21:15 21:22 WBC 16.8 H RBC 5.32 Hgb 14.9 Hct 46.9 MCV 88.2 MCH 28.0 MCHC 31.8 L RDW Std Deviation 44.3 H RDW Coeff of Tyesha 13.9 Plt Count 329 MPV 11.0 Immature Gran % (Auto) 1.200 H Neut % (Auto) 51.9 Lymph % (Auto) 35.2 Hanson % (Auto) 10.2 H Eos % (Auto) 1.2 Baso % (Auto) 0.3 Absolute Neuts (auto) 8.7 H Absolute Lymphs (auto) 5.92 H Nucleated RBC % 0 Sodium 141 Potassium 4.0 Chloride 104 Carbon Dioxide 29.0 Anion Gap 8 BUN 47 H Creatinine 1.61 H Estim Creat Clear Calc 33.07 Est GFR (MDRD) Af Amer 53 L Est GFR (MDRD) Non-Af 44 L BUN/Creatinine Ratio 29.2 H Glucose 58 L Calcium 9.1 Total Bilirubin 0.60 AST 12 L ALT 24 Alkaline Phosphatase 96 Total Protein 6.9 Albumin 3.2 Globulin 3.7 Albumin/Globulin Ratio 0.9 POC Glucose 197 H 07/13/22 21:55 WBC RBC Hgb Hct MCV MCH MCHC RDW Std Deviation RDW Coeff of Tyesha Plt Count MPV Immature Gran % (Auto) Neut % (Auto) Lymph % (Auto) Hanson % (Auto) Eos % (Auto) Baso % (Auto) Absolute Neuts (auto) Absolute Lymphs (auto) Nucleated RBC % Sodium Potassium Chloride Carbon Dioxide Anion Gap BUN Creatinine Estim Creat Clear Calc Est GFR (MDRD) Af Amer Est GFR (MDRD) Non-Af BUN/Creatinine Ratio Glucose Calcium Total Bilirubin AST ALT Alkaline Phosphatase Total Protein Albumin Globulin Albumin/Globulin Ratio POC Glucose 151 H Radiography Diagnostic Testing: Clinical Impression(s) from Imaging Studies Brain CT 07/13/22 21:32 IMPRESSION: 1. Chronic involutional changes without evidence of acute intracranial or calvarial abnormality. No marked abnormality. 2. Stable erosive changes of the left anterior maxilla. Electronically Signed: Bull Marsh DO at 21:57 EST Reading Location ID and State: [address] [place] [address] Tel [phone], Service support , Discharge Plan Triage Chief Complaint: Hypoglycemia ED Provider: Poli Calle Dx/Rx/DC Orders Clinical Impression: Hypoglycemia, Mental status change resolved Instructions: ED Diabetic Insulin Reaction Prescriptions: No Action losartan [Cozaar] 50 MG tablet 50 mg PO DAILY atorvastatin 40 MG tablet 40 mg PO QHS aspirin 325 MG tablet 325 mg PO DAILY@0800 metformin 850 MG tablet 850 mg PO BIDCM Hold Instructions: Resume on 07/11/22. atenolol 25 MG tablet 25 mg PO QHS levothyroxine 75 MCG tablet 75 mcg PO DAILY nitroglycerin 0.4 MG tablet 0.4 mg sublingual Q5M PRN (Reason: Chest Pain) insulin lispro [Humalog KwikPen Insulin] 100 UNIT/ML insulin pen 9 unit SQ TIDCM etodolac 400 mg tablet 400 mg PO BID hydrochlorothiazide 12.5 mg capsule 12.5 mg PO DAILY omega-3 fatty acids Capsule 1,000 mg PO DAILY acetaminophen [Tylenol] 325 mg Tablet 650 mg PO Q6H PRN PRN (Reason: Pain 1-10 Or Fever >100.7) Qty: 0 0RF insulin lispro [Humalog KwikPen Insulin] 100 unit/mL insulin pen See Protocol subcut TIDAC Protocol: 3. Sliding Scale Insulin Med Dosing Condition: 150-189 mg/dl = 1 unit Condition: 190-229 mg/dl = 2 units Condition: 230-269 mg/dl = 3 units Condition: 270-309 mg/dl = 4 units Condition: 310-349 mg/dl = 5 units Condition: 350-399 mg/dl = 6 units Condition: 400-449 mg/dl = 7 units Condition: Greater than 449 call physician Protocol Text: - Use for Total Daily Dose of Insulin 37-55 units - Obsese, infected, or steroid patients MEDIUM DOSING ALGORITHIM insulin glargine-yfgn 100 unit/mL (3 mL) insulin pen 40 unit subcut HS Primary Care Provider: Demetris Fuentes Referrals: Demetris Fuentes MD [Primary Care Provider] - As soon as possible Disposition Disposition: Inpatient Rehab Unit/Facility Discharge Location: [facility] Transitional Care Unit
--- NOTE | 2022-07-13 21:32 | EKG12_ITS ---
Test Reason : HAM TRIMMER Blood Pressure : / mmHG Vent. Rate : 073 BPM Atrial Rate : 073 BPM P-R Int : 180 ms QRS Dur : 108 ms QT Int : 374 ms P-R-T Axes : 072 -29 050 degrees QTc Int : 412 ms Normal sinus rhythm with sinus arrhythmia Incomplete right bundle branch block Minimal voltage criteria for LVH, may be normal variant ( R in aVL ) Inferior infarct ,age undetermined Abnormal ECG Confirmed by AMAURI ROWLEY, MERLY ([id number]), web editor CEASAR ANTUNEZ ([id number]) on 07/18/2022 12:21:47 PM Referred By: Confirmed By:MERLY BAUGH MD
--- NOTE | 2022-07-13 21:32 | CT_ITS ---
STUDY: CT BRAIN WITHOUT CONTRAST REASON FOR EXAM: Male, 81 years old. Speech difficulty. Hypoglycemia. Left-sided weakness. RADIATION DOSAGE (If Supplied By Facility): CTDIvol = ( 44.99 ) mGy, DLP = ( 863.60 ) mGycm TECHNIQUE: Transaxial CT imaging of the brain was performed without administration of intravenous contrast material. Individualized dose optimization techniques were used for this CT. COMPARISON: July 06, 2022. FINDINGS: Normal soft tissue structures. Normal calvarium. There is mild cerebral atrophy with widening of the extra-axial spaces and ventricular dilatation. There are areas of decreased attenuation within the white matter tracts of the supratentorial brain, consistent with microvascular disease changes. Normal basal ganglia and thalami. Normal brainstem. Normal cerebellum. There is no intracranial hemorrhage. There are no findings of an acute ischemic infarction. There is high density material in the left maxillary sinus suggesting chronic sinusitis. There is erosive changes of the left anterior maxillary alveolar ridge. CT/Brain/Head without Contrast IMPRESSION: 1. Chronic involutional changes without evidence of acute intracranial or calvarial abnormality. No marked abnormality. 2. Stable erosive changes of the left anterior maxilla. Electronically Signed: Bull Marsh DO at 21:57 EST ,
[2022-07-13 21:44] VITALS: BP 144/80; PULSE 75; RESP 18; O2SAT 95
[2022-07-13 21:53] LABS: Absolute Lymphocyte Count 5.92 X10^3/uL (0.83-4.51); Absolute Neutrophil Count 8.7 X10^3/uL (2.0-7.7); Basophil# 0.05 X10^3/uL; Basophil% 0.3 % (0-1); Eosinophil# 0.21 X10^3/uL; Eosinophils% 1.2 % (0-5); Hematocrit 46.9 % (40-54); Hemoglobin 14.9 g/dL (13.0-16.5); Lymphocyte # 5.92 X10^3/ul (0.83-4.51); Lymphocyte % 35.2 % (19-41); Mean Corp Hgb Conc 31.8 g/dL (32-36); Mean Corpuscular Volume 88.2 fL (80-94); Monocyte# 1.72 X10^3/uL; Monocyte% 10.2 % (0-10); NRBC Flagged by Analyzer 0 % (0-5); Neutrophil # 8.71 X10^3/uL (2.7-7.7); Neutrophil % 51.9 % (47-70); POSITIVE DIFFERENTIAL YES; POSITIVE MORPHOLOGY YES; Platelet Count 329 K/mm3 (150-450); RBC Distribution Width CV 13.9 % (11.6-14.6); RBC Distribution Width SD 44.3 fl (35.1-43.9); Red Blood Count 5.32 M/mm3 (4.6-6.2); White Blood Count 16.8 K/mm3 (4.4-11.0)
[2022-07-13 21:55] LABS: Bedside Glucose 197 mg/dL (74-106)
[2022-07-13 21:58] LABS: Differential Indicated SCAN CRITERIA MET
[2022-07-13 22:10] LABS: ALB/GLOB Ratio 0.9 RATIO (0.9-2.4); AST(SGOT) 12 U/L (15-37); Alanine Aminotransfer ALT/SGPT 24 U/L (16-61); Albumin, Serum 3.2 g/dL (3.2-5.0); Alkaline Phosphatase 96 U/L (45-117); Anion Gap 8 (5-15); BUN 47 mg/dL (7-18); BUN/Creat Ratio 29.2 RATIO (10-20); Calcium,Total 9.1 mg/dL (8.5-10.1); Chloride 104 mmol/L (98-107); Creatinine, Serum 1.61 mg/dL (0.70-1.30); EST Glomerular Filtration Rate 44 mL/min (>60); Est Glom Filt Rate - Afr Amer 53 mL/min (>60); Estimated Creatinine Clearance 33.07 ml/min; Globulin 3.7 g/dL (2.2-4.2); Glucose 58 mg/dL (74-106); Protein, Total 6.9 g/dL (6.4-8.2); Sodium Level 141 mmol/L (136-145)
[2022-07-13 22:15] LABS: Bedside Glucose 151 mg/dL (74-106)
[2022-07-13 22:48] VITALS: BP 124/64; PULSE 65; RESP 18; O2SAT 100
[2022-07-13 23:05] LABS: Bedside Glucose 179 mg/dL (74-106)
[2022-07-13 23:14] LABS: Differential Comment SCANNED
[2022-07-15 11:41] LABS: Pathologist Review Reviewed
== END 2022-07-13 23:35 ==
PROVIDERS: Emergency Provider Emergency Medicine; PCP Family Medicine; Visit Provider Emergency Medicine
DX: E11.649 Type 2 diabetes mellitus with hypoglycemia without coma (principal); Z79.4 Long term (current) use of insulin; E78.00 Pure hypercholesterolemia, unspecified; I10 Essential (primary) hypertension; E03.9 Hypothyroidism, unspecified; Z79.82 Long term (current) use of aspirin; Z79.84 Long term (current) use of oral hypoglycemic drugs; Z79.899 Other long term (current) drug therapy; Z86.73 Personal history of transient ischemic attack (TIA), and cerebral infarction without residual deficits
CPT/HCPCS: 70450; 80053; 82962; 85025; 93005; 96374; 99284; A4216

== ENCOUNTER 2022-12-19 19:33 | Emergency (ER) | payer MEDICARE, OTHER, SELFPAY ==
[2022-12-19 19:35] VITALS: BP 153/53; PULSE 61; RESP 16; TEMP 36.7; O2SAT 98; BMI 37.9
[2022-12-19 20:40] VITALS: BMI 39.3
--- NOTE | 2022-12-19 21:16 | CT_ITS ---
INDICATION: trauma EXAMINATION: CT CERVICAL SPINE - CT Spine Cervical W/O Contrast Injection TECHNIQUE: Helically acquired images were obtained of the cervical spine. 2D reformatted images were reviewed. A radiation dose optimization technique was used for this scan. IV Contrast dosage and agent: None. COMPARISON: July 09, 2022 CT cervical spine. FINDINGS: VERTEBRAE: No fracture or traumatic subluxation. No discrete lytic or blastic abnormality. Normal alignment. Normal craniocervical junction and cervicothoracic junction. Osseous fusion C4-5 endplates and right C4-5 facet joint. DISCS and SPINAL CANAL: C4-5 and plan osseous fusion. C5-6 significant intervertebral disc height loss and degenerative endplate changes without definite osseous fusion. Fused facet joints. Moderate degenerative changes C6-7 level. Minimal neural foraminal narrowing from uncovertebral joint arthropathy at these levels. C3-4 posterior disc herniation appears to result in at least mild central spinal canal stenosis. NECK SOFT TISSUES: No prevertebral soft tissue swelling. There is no cervical adenopathy. Retropharyngeal course of the internal carotid arteries showing significant carotid bulb calcifications. LUNG APICES: Clear. CT/Spine Cervical without Contras IMPRESSION: No fracture or malalignment. 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 Electronically Signed: Mal Campa DO at 21:57 EDT ,
--- NOTE | 2022-12-19 21:16 | CT_ITS ---
INDICATION: Trauma EXAMINATION: CT BRAIN - CT Head or Brain W/O Contrast Injection TECHNIQUE: Multiple axial images were obtained of the head without intravenous contrast. A radiation dose optimization technique was used for this scan. IV Contrast dosage and agent: None. COMPARISON: CT head from July 13, 2022. FINDINGS: BRAIN PARENCHYMA: No intra- or extra-axial hemorrhage. No intracranial mass or mass effect. Shepherd/white matter differentiation is maintained and there is no blurring of the basal ganglia. There is no hyperdense vessel. Decreased density of the periventricular white matter grossly symmetric highly suggestive of chronic small vessel ischemic changes. Posterior fossa structures are unremarkable. CSF SPACES: Appropriate for age. No hydrocephalus. Basal cisterns are patent. CALVARIUM, SKULL BASE, PARANASAL SINUSES AND MASTOID AIR CELLS: Intact calvarium and skull base. No fracture. Periapical lucency left maxilla unchanged. Paranasal sinus disease primarily involving the maxillary sinuses with new opacities in the ethmoid air cells and left frontal sinus; worsening paranasal sinus disease. No associated osseous erosions sinus wray. Mastoid air cells and middle ears are clear. ORBITS: Both globes, extraocular muscles, optic nerves and retrobulbar fat appear unremarkable. ASPECTS Score for Acute Strokes: 10 CT/Brain/Head without Contrast IMPRESSION: No acute intracranial pathology. Chronic small vessel ischemic changes. Periapical lucency left maxilla, incisor region. Worsening paranasal sinus disease. Electronically Signed: Mal Campa DO at 21:51 EDT ,
--- NOTE | 2022-12-19 21:18 | EX.ED.VIS.HA ---
HPI History of Present Illness Chief Complaint: Headache Informant: patient and family Narrative Narrative: Patient had a mechanical slip and fall about 2 weeks ago. He states his balance is off because of a prior stroke and he has bad knees. He leaned on a golf cart but the golf cart rolled causing him to fall. He did hit his head but did not lose consciousness. He has had some soreness across his shoulders and neck and base of the head since. He states it seems like the pain is higher up toward his head today. He points really to the left base of the skull as the area that is new. But no nausea vomiting fevers chills. No numbness tingling weakness. Denies any neurologic symptoms. He states he did sleep a lot more yesterday and wondering if sleeping in a bad position may have worsened this. [facility] Medical History Bilateral edema of lower extremity Debility Diabetes High cholesterol Hypertension Hypothyroid Lactose intolerance Osteoarthritis Stroke/cerebrovascular accident Home Medications aspirin 325 mg tablet 325 mg PO DAILY@0800 HEALTH MAINTENANCE 08/20/16 [History Last Taken 07/10/22 08:57] atenolol 25 mg tablet 25 mg PO QHS BP 08/20/16 [History Last Taken 07/09/22 21:08] atorvastatin 40 mg tablet 40 mg PO QHS CHOLESTEROL 08/20/16 [History Last Taken 07/09/22 21:08] levothyroxine 75 mcg tablet 75 mcg PO DAILY THYROID 08/20/16 [History Last Taken 07/10/22 06:12] losartan 50 mg tablet (Cozaar) 100 mg PO DAILY BP 08/20/16 [History Last Taken 07/06/22] metformin 850 mg tablet 850 mg PO BIDCM DM 08/20/16 [History Last Taken 07/06/22] nitroglycerin 0.4 mg sublingual tablet 0.4 mg sublingual Q5M PRN Chest Pain 08/20/16 [History Last Taken Unknown] etodolac 400 mg tablet 400 mg PO BID PAIN 11/09/21 [History Last Taken 07/10/22 08:58] hydrochlorothiazide 12.5 mg capsule 12.5 mg PO DAILY BP 07/06/22 [History Last Taken 07/10/22 08:57] omega-3 fatty acids 1,000 mg PO DAILY SUPPLEMENT 07/06/22 [History Last Taken 07/06/22] gabapentin 100 mg capsule 100 mg PO TID 12/19/22 [History Last Taken Unknown] insulin glargine-yfgn 100 unit/mL (3 mL) subcutaneous pen 27 unit subcut QHS 12/19/22 [History Last Taken Unknown] insulin lispro 100 unit/mL subcutaneous pen (Humalog KwikPen (U-100) Insulin) 9 unit subcut TID 12/19/22 [History Last Taken Unknown] Allergy/AdvReac Type Severity Reaction Status Date / Time iodine Allergy Swelling Verified 12/19/22 19:35 milk Allergy Upset Verified 12/19/22 19:35 Stomach Milk Containing Products Allergy Upset Verified 12/19/22 19:35 (Dairy) Stomach [Milk Containing Products] Surgical History History of appendectomy History of cholecystectomy History of tonsillectomy Social History household members: none Smoking Status: Never smoker alcohol intake: never substance use type: does not use ROS ROS ED Constitutional Constitutional ED: Denies chills or fever(s) Eyes Eyes: Denies change in vision or diplopia ENT ENT ED: Denies sore throat Cardiovascular Cardiovascular: Denies chest pain or palpitations Respiratory/Chest Respiratory/Chest: Denies cough or dyspnea Gastrointestinal Gastrointestinal: Denies abdominal pain, diarrhea, nausea or vomiting Genitourinary Genitourinary ED: Denies hematuria Musculoskeletal Musculoskeletal: Reports arthralgias and neck pain; Denies back pain or myalgias Integumentary Denies Abrasions or rash Neurologic Neurologic: Reports headache(s); Denies paresthesias or weakness Endocrine Endocrinology: Denies polydipsia or polyuria Hematologic/Lymphatic Hematologic/Lymphatic: Reports other Details: Denies being on any blood thinners other than aspirin. ; Denies easy bleeding or easy bruising Allergic/Immunologic Allergic/Immunologic ED: Denies urticaria EXAM Physical Exam Narrative Exam Narrative: CONSTITUTIONAL: Patient is nontoxic in appearance. The patient looks comfortable. HEENT: No notable trauma. Mucous membranes moist. No sinus tenderness. No indication of pain with swallowing. Neck: Patient does have left-sided paraspinal tenderness. It is more up toward the very base of the skull on that is where he points is his area of discomfort. But I see no swelling. No abrasions. Most of the tenderness is lateral rather than central. EYES: No conjunctival injection. No proptosis. CARDIOVASCULAR: Regular rate. Regular rhythm. No notable murmur. No JVD. RESPIRATORY: No respiratory distress. Breathing is unlabored. No wheezes. GASTROINTESTINAL: Not distended. Bowel sounds are normal. No tenderness. GENITOURINARY: No CVA tenderness. MUSCULOSKELETAL: Atraumatic. He has limited motion of the left shoulder which is chronic. But no acute bony tenderness. NEUROLOGICAL: Patient is alert and appropriate. No focal deficit noted. SKIN: No noted rashes. No diaphoresis. PSYCHIATRIC: Patient is calm. Mood is appropriate. Const Vital Signs: 12/19/22 19:35 Temperature 98.1 F Temperature Source Temporal Pulse Rate 61 Respiratory Rate 16 Blood Pressure 153/53 H Blood Pressure Mean 86 Pulse Ox 98 MDM MDM MDM Narrative Medical decision making narrative: My independent interpretation the patient's CT of the head shows no sign of mass or bleeding. Final reading does show some paranasal sinus disease and possible maxillary lucency. But he is not having pain in this area. My independent interpretation of his cervical spine shows arthritis but I see no acute fracture. Final reading is similar but does show some herniation. Patient states he really only hurts when he turns to the right. He just wants to take Tylenol for pain. He states his family doctor gave him gabapentin about a week ago and that its been helping but he thought he could not take Tylenol with it. He states Tylenol works great for his pain. I told him he can take some Tylenol but we talked about limits of dosages. He is happy and we will get him home. Radiography Diagnostic Testing: Clinical Impression(s) from Imaging Studies Brain CT 12/19/22 21:16 IMPRESSION: No acute intracranial pathology. Chronic small vessel ischemic changes. Periapical lucency left maxilla, incisor region. Worsening paranasal sinus disease. Electronically Signed: Mal Campa DO at 21:51 EDT , Cervical Spine CT 12/19/22 21:16 IMPRESSION: No fracture or malalignment. 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 Electronically Signed: Mal Campa DO at 21:57 EDT , Discharge Plan Triage Chief Complaint: Headache ED Provider: Gregory Newman Dx/Rx/DC Orders Clinical Impression: Fall at home, Cervical strain Instructions: ED Neck Sprain or Strain Prescriptions: No Action losartan [Cozaar] 50 MG tablet 100 mg PO DAILY atorvastatin 40 MG tablet 40 mg PO QHS aspirin 325 MG tablet 325 mg PO DAILY@0800 metformin 850 MG tablet 850 mg PO BIDCM Hold Instructions: Resume on 07/11/22. atenolol 25 MG tablet 25 mg PO QHS levothyroxine 75 MCG tablet 75 mcg PO DAILY nitroglycerin 0.4 MG tablet 0.4 mg sublingual Q5M PRN (Reason: Chest Pain) etodolac 400 mg tablet 400 mg PO BID hydrochlorothiazide 12.5 mg capsule 12.5 mg PO DAILY omega-3 fatty acids Capsule 1,000 mg PO DAILY gabapentin 100 mg Capsule 100 mg PO TID insulin lispro [Humalog KwikPen Insulin] 100 unit/mL Insulin Pen 9 unit SUBCUT TID insulin glargine-yfgn 100 unit/mL (3 mL) insulin pen 27 unit subcut QHS Primary Care Provider: Demetris Fuentes Referrals: Demetris Fuentes MD [Primary Care Provider] - 3-5 Days if not improving Disposition Disposition: Home, Self Care
[2022-12-19] MEDS: Acetaminophen 500 MG Tablet 1000 MG PO (22:54)
== END 2022-12-19 22:56 | disposition home or self-care (01) ==
PROVIDERS: Emergency Provider Emergency Medicine; PCP Family Medicine; Visit Provider Emergency Medicine
DX: S16.1XXA Strain of muscle, fascia and tendon at neck level, initial encounter (principal); E11.9 Type 2 diabetes mellitus without complications; Z79.4 Long term (current) use of insulin; W01.10XA Fall on same level from slipping, tripping and stumbling with subsequent striking against unspecified object, initial encounter; Y93.89 Activity, other specified; Y99.8 Other external cause status; I10 Essential (primary) hypertension; E78.00 Pure hypercholesterolemia, unspecified; E03.9 Hypothyroidism, unspecified; Z79.82 Long term (current) use of aspirin; Z79.84 Long term (current) use of oral hypoglycemic drugs; Z79.899 Other long term (current) drug therapy; Z86.73 Personal history of transient ischemic attack (TIA), and cerebral infarction without residual deficits
CPT/HCPCS: 70450; 72125; 99285; A4216

== ENCOUNTER 2023-01-26 15:35 | Emergency (ER) | payer MEDICARE, OTHER, SELFPAY ==
[2023-01-26] VITALS (8 sets, daily range): BP systolic 106–155; BP diastolic 54–66; PULSE 64–70; RESP 14–25; TEMP 37; O2SAT 93–97; BMI 40.8
--- NOTE | 2023-01-26 16:21 | EKG12_ITS ---
Test Reason : Blood Pressure : / mmHG Vent. Rate : 068 BPM Atrial Rate : 068 BPM P-R Int : 188 ms QRS Dur : 102 ms QT Int : 370 ms P-R-T Axes : 053 -33 073 degrees QTc Int : 393 ms Normal sinus rhythm with sinus arrhythmia Left axis deviation Incomplete right bundle branch block Minimal voltage criteria for LVH, may be normal variant ( R in aVL ) Inferior infarct , age undetermined Possible Anterior infarct , age undetermined Abnormal ECG Confirmed by AMAURI ROWLEY, MERLY ([id number]), communications editor CEASAR ANTUNEZ ([id number]) on 01/27/2023 9:21:52 AM Referred By: JANE Confirmed By:MERLY BAUGH MD
[2023-01-26 16:34] LABS: Absolute Lymphocyte Count 1.87 X10^3/uL (0.83-4.51); Absolute Neutrophil Count 5.8 X10^3/uL (2.0-7.7); Basophil# 0.04 X10^3/uL; Basophil% 0.4 % (0-1); Eosinophil# 0.19 X10^3/uL; Eosinophils% 2.1 % (0-5); Hematocrit 39.4 % (40-54); Hemoglobin 13.2 g/dL (13.0-16.5); Lymphocyte # 1.87 X10^3/ul (0.83-4.51); Lymphocyte % 20.9 % (19-41); Mean Corp Hgb Conc 33.5 g/dL (32-36); Mean Corpuscular Hgb 28.7 pg (27.0-32.0); Mean Corpuscular Volume 85.7 fL (80-94); Monocyte# 0.97 X10^3/uL; Monocyte% 10.9 % (0-10); NRBC Flagged by Analyzer 0 % (0-5); Neutrophil # 5.79 X10^3/uL (2.7-7.7); Neutrophil % 64.8 % (47-70); Platelet Count 243 K/mm3 (150-450); RBC Distribution Width CV 13.7 % (11.6-14.6); RBC Distribution Width SD 42.7 fl (35.1-43.9); White Blood Count 8.9 K/mm3 (4.4-11.0)
[2023-01-26] MEDS: Aspirin 81 MG TAB.CHEW 324 MG PO (16:40)
--- NOTE | 2023-01-26 16:44 | ED.VIS.CHEST ---
HPI History of Present Illness Chief Complaint: Chest Pain Informant: patient Onset/Context/Timing Onset: Yesterday Activity at onset: gradual Timing: Intermittent and Lasts (Few seconds) Quality: Positive for Aching, Dull and Sharp (At times) Location: Left Chest and - (Left arm, left hand) Worsened By: Nothing Relieved By: Nothing Associated Symptoms: Positive for Cough and Lightheadedness; Negative for Nausea, Vomiting, Diaphoresis, Dyspnea, Fever, Acid Reflux or Palpitations Narrative Narrative: Patient presents with chest pain that has been intermittent over the past few days. Patient states it has gradually gotten worse. Patient states it only last for a few seconds. Patient states the pain is over the left upper chest and radiates into his left arm and left hand. Patient describes the pain as dull and aching. Patient states it is sharp at times. Patient states nothing makes it better nothing makes it worse. Patient admits to a cough and some lightheadedness. Patient denies any nausea or vomiting. Patient denies any shortness of breath or diaphoresis. CVD Risk Factors: Positive for Diabetes; Negative for Hypertension, Hypercholesterolemia, Family History 1' </=55 or Smoking PE Risk Factors: Negative for Recent Travel/Surgery, Recent Immobilization, Prior DVT or PE, Cancer or OCP + Smoking + >/=35 PFSH [facility] Medical History Bilateral edema of lower extremity Debility Diabetes High cholesterol Hypertension Hypothyroid Lactose intolerance Osteoarthritis Stroke/cerebrovascular accident Home Medications aspirin 325 mg tablet 325 mg PO DAILY@0800 HEALTH MAINTENANCE 08/20/16 [History Last Taken 07/10/22 08:57] atenolol 25 mg tablet 25 mg PO QHS BP 08/20/16 [History Last Taken 07/09/22 21:08] atorvastatin 40 mg tablet 40 mg PO QHS CHOLESTEROL 08/20/16 [History Last Taken 07/09/22 21:08] levothyroxine 75 mcg tablet 75 mcg PO DAILY THYROID 08/20/16 [History Last Taken 07/10/22 06:12] losartan 50 mg tablet (Cozaar) 100 mg PO DAILY BP 08/20/16 [History Last Taken 07/06/22] metformin 850 mg tablet 850 mg PO BIDCM DM 08/20/16 [History Last Taken 07/06/22] nitroglycerin 0.4 mg sublingual tablet 0.4 mg sublingual Q5M PRN Chest Pain 08/20/16 [History Last Taken Unknown] etodolac 400 mg tablet 400 mg PO BID PAIN 11/09/21 [History Last Taken 07/10/22 08:58] hydrochlorothiazide 12.5 mg capsule 12.5 mg PO DAILY BP 07/06/22 [History Last Taken 07/10/22 08:57] omega-3 fatty acids 1,000 mg PO DAILY SUPPLEMENT 07/06/22 [History Last Taken 07/06/22] gabapentin 100 mg capsule 100 mg PO TID 12/19/22 [History Last Taken Unknown] insulin glargine-yfgn 100 unit/mL (3 mL) subcutaneous pen 27 unit subcut QHS 12/19/22 [History Last Taken Unknown] insulin lispro 100 unit/mL subcutaneous pen (Humalog KwikPen (U-100) Insulin) 9 unit subcut TID 12/19/22 [History Last Taken Unknown] Allergy/AdvReac Type Severity Reaction Status Date / Time iodine Allergy Swelling Verified 12/19/22 19:35 milk Allergy Upset Verified 12/19/22 19:35 Stomach Milk Containing Products Allergy Upset Verified 12/19/22 19:35 (Dairy) Stomach [Milk Containing Products] Penicillins AdvReac Mild PT UNSURE Verified 01/26/23 15:36 OF REACTION Surgical History History of appendectomy History of cholecystectomy History of tonsillectomy Social History household members: none Smoking Status: Never smoker alcohol intake: never substance use type: does not use ROS ROS ED Constitutional Constitutional ED: Denies chills or fever(s) Eyes Eyes: Denies blurry vision or change in vision ENT ENT ED: Denies rhinorrhea or sore throat Cardiovascular Cardiovascular: Reports chest pain; Denies palpitations Respiratory/Chest Respiratory/Chest: Reports cough; Denies dyspnea Gastrointestinal Gastrointestinal: Reports diarrhea and nausea; Denies abdominal pain or vomiting Genitourinary Genitourinary ED: Denies dysuria or hematuria Musculoskeletal Musculoskeletal: Reports back pain; Denies neck pain Integumentary Denies abscess or rash Neurologic Neurologic: Denies headache(s) or weakness Allergic/Immunologic Allergic/Immunologic ED: Denies mouth swelling or urticaria EXAM Physical Exam Const Vital Signs: 01/26/23 15:36 01/26/23 16:36 01/26/23 16:36 Temperature 98.6 F Temperature Source Temporal Pulse Rate 69 64 Respiratory Rate 14 22 H Blood Pressure 155/62 H Blood Pressure Mean 93 Pulse Ox 95 94 93 Oxygen Delivery Method Room Air Room Air Room Air 01/26/23 16:39 01/26/23 16:50 01/26/23 17:07 Temperature Temperature Source Pulse Rate 65 70 Respiratory Rate 18 Blood Pressure 126/56 H 126/56 H 106/54 L Blood Pressure Mean 79 71 Pulse Ox 93 Oxygen Delivery Method Room Air 01/26/23 18:43 01/26/23 19:40 01/26/23 20:15 Temperature Temperature Source Pulse Rate 64 67 68 Respiratory Rate 25 H 18 20 H Blood Pressure 122/58 H 113/66 Blood Pressure Mean 79 81 Pulse Ox 96 94 97 Oxygen Delivery Method Room Air Room Air Positive well nourished, well developed and obese General Appearance ED: well developed and NAD Nutritional Appearance: obese HEENT normocephalic and atraumatic Eyes PERRL and EOMs intact bilaterally Neck supple and no JVD Chest Wall palpation of chest normal Resp normal respiratory effort and clear to auscultation bilaterally Effort and Inspection: Negative for respiratory distress Cardio regular rate and regular rhythm GI normal to inspection, nondistended, normoactive bowel sounds, soft to palpation, non-tender and non-distended Extremity normal to inspection General Extremety ED: Yes edema; Negative for tenderness General Extremity: edema bilateral lower extremity Details: mild Neuro oriented x3, CN's II-XII intact bilaterally and no sensory deficits noted Sensorium / Orientation: awake and alert Motor Exam: strength 5/5 throughout Psych mental status grossly normal Heart Score History: Slightly/Non-Suspicious ECG: Nonspecific Repolarization Age: >/= 65 years Risk Factors: 1 or 2 Risk Factors Troponin: </= Normal Limit Score: 4 MDM MDM MDM Narrative Medical decision making narrative: Differential diagnosis includes cardiac dysrhythmia, cardiac ischemia, pneumonia, pneumothorax, pulmonary embolism, electrolyte abnormality, congestive heart failure, and musculoskeletal pain. EKG will be obtained to assess for cardiac dysrhythmia and cardiac ischemia. Chest x-ray will be obtained to assess for pneumonia, congestive heart failure, and pneumothorax. CBC will be obtained to assess for leukocytosis and anemia. Basic metabolic profile will be obtained to assess for electrolyte abnormality and renal function. High-sensitivity troponin will be obtained to assess for cardiac ischemia. 2-hour repeat high-sensitivity troponin will be obtained to assess for ongoing cardiac ischemia. D-dimer will be obtained to assess for pulmonary embolism. History & Record Review Discussion w/independent historian: Patient Additional record(s) reviewed:: Prior labs Lab Data Attestation: I reviewed the patient's lab results. Lab results narrative: CBC was reviewed and was within normal limits. D-dimer was reviewed and was normal for his age at 0.54. Basic metabolic profile was reviewed. BUN was slightly elevated at 31. This is consistent with prior results. Creatinine was normal at 1.25. Glucose was slightly elevated at 158. Initial high-sensitivity troponin was reviewed and was normal at 10. 2-hour repeat high-sensitivity troponin was reviewed and was normal at 10. Labs: Laboratory Results - last 24 hr 01/26/23 01/26/23 16:10 18:36 WBC 8.9 RBC 4.60 Hgb 13.2 Hct 39.4 L MCV 85.7 MCH 28.7 MCHC 33.5 RDW Std Deviation 42.7 RDW Coeff of Tyesha 13.7 Plt Count 243 MPV 10.0 Immature Gran % (Auto) 0.900 Neut % (Auto) 64.8 Lymph % (Auto) 20.9 [place] % (Auto) 10.9 H Eos % (Auto) 2.1 Baso % (Auto) 0.4 Absolute Neuts (auto) 5.8 Absolute Lymphs (auto) 1.87 Nucleated RBC % 0 D-Dimer Quant (PE/DVT) 0.54 H* Sodium 139 Potassium 4.2 Chloride 109 H Carbon Dioxide 25.0 Anion Gap 5 BUN 31 H Creatinine 1.25 Estim Creat Clear Calc 40.41 Est GFR (MDRD) Af Amer 71 Est GFR (MDRD) Non-Af 59 L BUN/Creatinine Ratio 24.8 H Glucose 158 H Calcium 8.8 Troponin I High Sens 10 10 Radiography Chest X-Ray - ED: 1 View, Read by ED Physician, Read by Radiologist and No Acute Disease Diagnostic Testing: Clinical Impression(s) from Imaging Studies Chest X-Ray 01/26/23 16:45 IMPRESSION: Elevated right hemidiaphragm and mild basilar atelectasis. Electronically Signed: Rell Vilchis MD at 17:03 EDT , Portable 1 view chest x-ray was obtained. On my independent interpretation, lung styles are clear. There is normal cardiac silhouette. Bony thorax is normal. There is no acute process noted. Radiologist also interpreted the x-ray and agrees. EKG Initial EKG: Attestation: I personally reviewed and interpreted this EKG as follows: Interpretation: Sinus Rhythm (68) and Non-Specific ST Changes Comments: EKG was obtained. On my independent interpretation, it showed a normal sinus rhythm with a rate of 68. AL interval, QRS interval, and QTc intervals were all normal. There is a leukocytosis elevation at -33. There are nonspecific ST-T wave changes. Prior EKG tracings: available for review Prior: Unchanged (07/13/2022) Treatment and Re-Evaluation :: Patient was advised of his findings. Patient has a HEART score of 4. Patient was instructed to follow-up with his primary care physician in 5 to 7 days. Patient was instructed return if worse in any way. Patient understands and is agreeable with the plan. All questions were answered. Discharge Plan Triage Chief Complaint: Chest Pain ED Provider: Mode Ng Dx/Rx/DC Orders Clinical Impression: Diabetes mellitus, Chest pain of uncertain etiology, Hypertension Instructions: ED Chest Pain, Uncertain Cause Prescriptions: No Action losartan [Cozaar] 50 MG tablet 100 mg PO DAILY atorvastatin 40 MG tablet 40 mg PO QHS aspirin 325 MG tablet 325 mg PO DAILY@0800 metformin 850 MG tablet 850 mg PO BIDCM Hold Instructions: Resume on 07/11/22. atenolol 25 MG tablet 25 mg PO QHS levothyroxine 75 MCG tablet 75 mcg PO DAILY nitroglycerin 0.4 MG tablet 0.4 mg sublingual Q5M PRN (Reason: Chest Pain) etodolac 400 mg tablet 400 mg PO BID hydrochlorothiazide 12.5 mg capsule 12.5 mg PO DAILY omega-3 fatty acids Capsule 1,000 mg PO DAILY gabapentin 100 mg Capsule 100 mg PO TID insulin lispro [Humalog KwikPen Insulin] 100 unit/mL Insulin Pen 9 unit SUBCUT TID insulin glargine-yfgn 100 unit/mL (3 mL) insulin pen 27 unit subcut QHS Primary Care Provider: Demetris Fuentes Referrals: Demetris Fuentes MD [Primary Care Provider] - 5-7 Days Disposition Disposition: Home, Self Care Discharge Date/Time: 01/26/23 20:28
--- NOTE | 2023-01-26 16:45 | RAD_ITS ---
STUDY: X-RAY CHEST REASON FOR EXAM: Male, 82 years old. chest pain TECHNIQUE: AP portable COMPARISON: July 06, 2022 FINDINGS: Elevated right hemidiaphragm and mild basilar atelectasis. There is no demonstrated pleural abnormality. Normal size heart. Normal mediastinum and nghia. Normal visualized pulmonary arteries. Normal visualized aortic arch and descending thoracic aorta. Dorsal spine and shoulders demonstrate degenerative changes. Normal visualized ribs, and clavicles. There is no demonstrated abnormality of the visualized soft tissue structures of the upper abdomen. RAD/Chest 1 View (Portable) IMPRESSION: Elevated right hemidiaphragm and mild basilar atelectasis. Electronically Signed: Rell Vilchis MD at 17:03 EDT ,
[2023-01-26 16:49] LABS: D-Dimer Quantitative (DVT/PE) 0.54 FEU/ug/m (0.27-0.49)
[2023-01-26] MEDS: Nitroglycerin SL (ED/IMG/CATH) 0.4 MG TABLET SL (16:50)
[2023-01-26 16:54] LABS: Anion Gap 5 (5-15); BUN 31 mg/dL (7-18); BUN/Creat Ratio 24.8 RATIO (10-20); Calcium,Total 8.8 mg/dL (8.5-10.1); Chloride 109 mmol/L (98-107); Creatinine, Serum 1.25 mg/dL (0.70-1.30); EST Glomerular Filtration Rate 59 mL/min (>60); Est Glom Filt Rate - Afr Amer 71 mL/min (>60); Estimated Creatinine Clearance 40.41 ml/min; Glucose 158 mg/dL (74-106); Potassium 4.2 mmol/L (3.5-5.1); Sodium Level 139 mmol/L (136-145); Troponin-I HS (w/2H Reflex) 10 pg/mL (3.0-78.0)
[2023-01-26 18:31] LABS: Reflex Troponin-HS? (from REC) Y
[2023-01-26 19:00] LABS: Troponin-I HS 10 pg/mL (3.0-78.0)
== END 2023-01-26 20:28 | disposition home or self-care (01) ==
PROVIDERS: Emergency Provider Emergency Medicine; PCP Family Medicine; Visit Provider Emergency Medicine
DX: E11.9 Type 2 diabetes mellitus without complications (principal); R07.9 Chest pain, unspecified; I10 Essential (primary) hypertension; E66.9 Obesity, unspecified; Z86.73 Personal history of transient ischemic attack (TIA), and cerebral infarction without residual deficits
CPT/HCPCS: 71045; 80048; 84484; 85025; 85379; 93005; 99285; A4216

== ENCOUNTER 2023-11-16 19:50 | Inpatient (IN) | payer MEDICARE, OTHER, SELFPAY ==
[2023-11-16 19:51] VITALS: BP 126/59; PULSE 76; RESP 16; TEMP 36.8; BMI 40.3
--- NOTE | 2023-11-16 20:12 | EDS_ITS ---
HPI <JATIN Morales - Last Filed: 11/16/23 21:52> History of Present Illness Chief Complaint: Weakness Narrative Narrative: 82-year-old male with PMH of HTN, HLD, DM2, hypothyroidism presents with generalized weakness. He lives alone and gets around his home in a wheelchair and transfers independently. This morning when he woke up his legs were tangled in the blanket and he states he felt so weak it took him 20 minutes to get untangled and get out of bed. His son took him to the clinic for scheduled blood work and he felt very weak getting into and out of the car and required more assistance than usual. When he got home he took a nap and after waking up was too weak to get out of bed and called 911. He states has had decreased appetite recently but no other specific symptoms. No fever or chills, URI symptoms, chest pain or shortness of breath, abdominal pain or black or bloody stools, or urinary symptoms. He checked his blood sugars twice today and they were in the 200s. PFS <JATIN Morales - Last Filed: 11/16/23 21:52> [facility] Medical History Bilateral edema of lower extremity Debility Diabetes High cholesterol Hypertension Hypothyroid Lactose intolerance Osteoarthritis Stroke/cerebrovascular accident Home Medications ?Medication ?Instructions ?Recorded ?Last Taken ?Type aspirin 325 mg tablet 325 mg PO DAILY@0800 HEALTH 08/20/16 07/10/22 08:57 History MAINTENANCE atenolol 25 mg tablet 25 mg PO QHS BP 08/20/16 07/09/22 21:08 History atorvastatin 40 mg tablet 40 mg PO QHS CHOLESTEROL 08/20/16 07/09/22 21:08 History levothyroxine 75 mcg tablet 75 mcg PO DAILY THYROID 08/20/16 07/10/22 06:12 History metformin 850 mg tablet 850 mg PO BIDCM DM 08/20/16 07/06/22 History nitroglycerin 0.4 mg sublingual 0.4 mg sublingual Q5M PRN Chest 08/20/16 Unknown History tablet Pain etodolac 400 mg tablet 400 mg PO BID PAIN 11/09/21 07/10/22 08:58 History hydrochlorothiazide 12.5 mg capsule 12.5 mg PO DAILY BP 07/06/22 07/10/22 08:57 History insulin glargine-yfgn 100 unit/mL 27 unit subcut QHS 12/19/22 Unknown History (3 mL) subcutaneous pen insulin lispro 100 unit/mL 9 unit subcut TID 12/19/22 Unknown History subcutaneous pen (Humalog KwikPen (U-100) Insulin) furosemide 20 mg tablet 40 mg PO DAILY 11/16/23 Unknown History gabapentin 300 mg capsule 300 mg PO TID 11/16/23 Unknown History glucosamine-chondroitin 250 mg-200 2 tab PO TID 11/16/23 Unknown History mg tablet (Osteo Bi-Flex) losartan 100 mg tablet 100 mg PO DAILY 11/16/23 Unknown History omega 8-jdu-fcp-fish oil 1,200 mg 1 cap PO BID 11/16/23 Unknown History (144 mg-216 mg) capsule (Fish Oil) Allergy/AdvReac Type Severity Reaction Status Date / Time iodine Allergy Swelling Verified 11/16/23 19:54 milk Allergy Upset Verified 11/16/23 19:54 Stomach Milk Containing Products Allergy Upset Verified 11/16/23 19:54 (Dairy) (Milk Containing Stomach Products) Penicillins AdvReac Mild PT UNSURE Verified 11/16/23 19:54 OF REACTION Food Allergies: Uncoded AdvReac Diarrhea Verified 11/16/23 19:54 Surgical History History of appendectomy History of cholecystectomy History of tonsillectomy Social History household members: none Smoking Status: Never smoker alcohol intake: never substance use type: does not use ROS <JATIN Morales - Last Filed: 11/16/23 21:52> ROS ED ROS Narrative Constitutional: Positive for malaise. Negative for fever, chills. CVS: Negative for palpitations, chest pain, syncope. Respiratory: Negative for shortness of breath, cough. GI: Negative for abdominal pain, nausea, vomiting, diarrhea, melena, hematochezia. : Negative for dysuria, frequency. Neuro: Negative for headache, motor/sensory dysfunction. EXAM <JATIN Morales - Last Filed: 11/16/23 21:52> Physical Exam Narrative Exam Narrative: CONST: Patient sitting in no acute distress. EYES: Normal inspection. NECK: Normal inspection. RESP: No respiratory distress, CTAB. CVS: Regular rate and rhythm, no murmur, no gallop. ABD: Soft and nontender, no guarding or rebound, nondistended. SKIN: Chronic appearing superficial bilateral copeland wounds. EXTREMITIES: Normal appearance, no pedal edema. NEURO: Alert and answering questions appropriately. PSYCH: Normal affect. Const Vital Signs: 11/16/23 19:51 11/16/23 19:51 11/16/23 20:35 Temperature 98.2 F Temperature Source Oral Pulse Rate 76 Respiratory Rate 16 Respiratory Effort Normal Respiratory Pattern Normal Blood Pressure 126/59 H Blood Pressure Mean 81 Pulse Ox Oxygen Delivery Method 11/16/23 22:04 11/17/23 00:00 11/17/23 00:33 Temperature 98.0 F Temperature Source Pulse Rate 65 64 62 Respiratory Rate 13 20 H 18 Respiratory Effort Respiratory Pattern Blood Pressure 128/53 H 119/50 L 114/66 Blood Pressure Mean 78 73 82 Pulse Ox 95 96 96 Oxygen Delivery Method Room Air Room Air <Dr. Sagar Jameson MD - Last Filed: 11/17/23 00:37> Physical Exam Const Vital Signs: 11/16/23 19:51 11/16/23 19:51 11/16/23 20:35 Temperature 98.2 F Temperature Source Oral Pulse Rate 76 Respiratory Rate 16 Respiratory Effort Normal Respiratory Pattern Normal Blood Pressure 126/59 H Blood Pressure Mean 81 Pulse Ox Oxygen Delivery Method 11/16/23 22:04 11/17/23 00:00 11/17/23 00:33 Temperature 98.0 F Temperature Source Pulse Rate 65 64 62 Respiratory Rate 13 20 H 18 Respiratory Effort Respiratory Pattern Blood Pressure 128/53 H 119/50 L 114/66 Blood Pressure Mean 78 73 82 Pulse Ox 95 96 96 Oxygen Delivery Method Room Air Room Air [facility] <JATIN Morales - Last Filed: 11/16/23 21:52> [facility] Narrative Medical decision making narrative: Patient presents with generalized weakness and inability to get out of bed this afternoon. He reports recent poor appetite but no other specific symptoms. He appears well and nontoxic. Vital signs stable. His exam is unremarkable except for lower extremity edema and anterior bilateral chronic scabbed wounds. There is no sign of acute cellulitis or abscess. He has no focal weakness or strokelike symptoms. Labs show normal white count of 9.2. Mild anemia at 11.9 and about a year ago it was 13.2 so this is not a significant change that would explain his symptoms. Electrolytes are WNL, BUN 67, creatinine 1.87. His creatinine is 1.25 in 01/22 and I do not have recent labs. He does report decreased fluid intake due to poor appetite and also states the doctor treating his legs told him to increase Lasix from once a day to 3 times a day recently so this could have caused KELVIN. He was treated with IV fluids. Glucose is 255 with no DKA. EKG is sinus rhythm with no acute ischemic changes and troponin is 64. BNP 47.7. CXR shows no acute process. Viral swab for COVID/flu/RSV is negative. Lab Data Attestation: I reviewed the patient's lab results. Labs: Laboratory Results - last 24 hr 11/16/23 11/16/23 20:35 22:00 WBC 9.2 RBC 4.33 L Hgb 11.9 L Hct 38.7 L MCV 89.4 MCH 27.5 MCHC 30.7 L RDW Std Deviation 44.7 H RDW Coeff of Tyesha 13.7 Plt Count 239 MPV 10.7 Immature Gran % (Auto) 0.500 Neut % (Auto) 60.5 Lymph % (Auto) 26.5 Tompkins % (Auto) 10.2 H Eos % (Auto) 1.8 Baso % (Auto) 0.5 Absolute Neuts (auto) 5.6 Absolute Lymphs (auto) 2.45 Nucleated RBC % 0 Sodium 140 Potassium 4.7 Chloride 111 H Carbon Dioxide 24.0 Anion Gap 5 BUN 67 H Creatinine 1.87 H Estim Creat Clear Calc 35.39 Est GFR (MDRD) Af Amer 45 L Est GFR (MDRD) Non-Af 37 L BUN/Creatinine Ratio 35.8 H Glucose 255 H Calcium 9.1 Troponin I High Sens 64 B-Natriuretic Peptide 47.7 TSH 1.80 Urine Color Yellow Urine Clarity Clear Urine pH 5.0 Ur Specific Bern 1.015 Urine Protein Negative Urine Glucose (UA) Normal Urine Ketones Negative Urine Occult Blood 10 H Urine Nitrite Negative Urine Bilirubin 3 H Urine Urobilinogen Normal Ur Leukocyte Esterase Negative Urine RBC 0 SEEN Urine WBC 0 SEEN Ur Squamous Epith Cells 0 SEEN Urine Bacteria 0 SEEN Urine Mucus 0 SEEN Radiography Diagnostic Testing: Clinical Impression(s) from Imaging Studies Chest X-Ray 11/16/23 20:50 IMPRESSION: No active disease. Electronically Signed: Alfa Burns MD at 21:06 EDT , ED attending interpretation 1 view chest x-ray shows normal heart size, no acute infiltrate edema or effusion EKG Initial EKG: Attestation: I personally reviewed and interpreted this EKG as follows: Interpretation: Sinus Rhythm and No Acute Injury Pattern Comments: Sinus rhythm at 63 bpm Left axis deviation Incomplete RBBB <Dr. Sagar Jameson MD - Last Filed: 11/17/23 00:37> [facility] Lab Data Labs: Laboratory Results - last 24 hr 11/16/23 11/16/23 20:35 22:00 WBC 9.2 RBC 4.33 L Hgb 11.9 L Hct 38.7 L MCV 89.4 MCH 27.5 MCHC 30.7 L RDW Std Deviation 44.7 H RDW Coeff of Tyesha 13.7 Plt Count 239 MPV 10.7 Immature Gran % (Auto) 0.500 Neut % (Auto) 60.5 Lymph % (Auto) 26.5 Tompkins % (Auto) 10.2 H Eos % (Auto) 1.8 Baso % (Auto) 0.5 Absolute Neuts (auto) 5.6 Absolute Lymphs (auto) 2.45 Nucleated RBC % 0 Sodium 140 Potassium 4.7 Chloride 111 H Carbon Dioxide 24.0 Anion Gap 5 BUN 67 H Creatinine 1.87 H Estim Creat Clear Calc 35.39 Est GFR (MDRD) Af Amer 45 L Est GFR (MDRD) Non-Af 37 L BUN/Creatinine Ratio 35.8 H Glucose 255 H Calcium 9.1 Troponin I High Sens 64 B-Natriuretic Peptide 47.7 TSH 1.80 Urine Color Yellow Urine Clarity Clear Urine pH 5.0 Ur Specific Bern 1.015 Urine Protein Negative Urine Glucose (UA) Normal Urine Ketones Negative Urine Occult Blood 10 H Urine Nitrite Negative Urine Bilirubin 3 H Urine Urobilinogen Normal Ur Leukocyte Esterase Negative Urine RBC 0 SEEN Urine WBC 0 SEEN Ur Squamous Epith Cells 0 SEEN Urine Bacteria 0 SEEN Urine Mucus 0 SEEN Radiography Diagnostic Testing: Clinical Impression(s) from Imaging Studies Chest X-Ray 11/16/23 20:50 IMPRESSION: No active disease. Electronically Signed: Alfa Burns MD at 21:06 EDT , Management Discussion w/another healthcare provider: Hospitalist Treatment and Re-Evaluation Comments:: I have personally performed a face to face assessment of the patient and have reviewed the SUDEEP Note. I performed a substantive portion of the visit including all aspects of the following. My devi findings include: History is generalized weakness worsening over the past several days to a week, notices more in his legs. He has had rash and edema in his legs that he states is much better now than it used to be due to antibiotics, and he has no pain in his legs now. No other specific symptoms other than poor appetite. Exam is well-appearing in no distress. Lungs clear, heart regular, abdomen soft nontender nondistended. There is erythema anterior bilateral lower extremities with scabbed lesions couple of them are seeping serous fluid, no areas of tenderness, full range of motion throughout the ankles and the knees without difficulty just weak symmetrically throughout all 4 extremities. Medical Decison Making workup for infectious, metabolic, cardiovascular etiology for potentially causing patient's weakness. I reviewed patient's labs, 1 view chest x-ray I agree is unremarkable, no signs of infection. Urinalysis shows no infection. Of concern is a hemoglobin drop although his levels not critically low, as well as elevated BUN at a proportion to creatinine elevation. This could all be chronic renal disease along with KELVIN and anemia of chronic disease, or it could be an acute upper GI bleed causing these abnormalities. Therefore I sent a Hemoccult, stool was light brown, nonmelanotic, and it is negative in the lab. Therefore more likely to be overdiuresis and KELVIN, which may be causing his generalized weakness. Since he is having such a hard time even standing, plan will be for admission and will discuss with hospitalist. Discharge Plan Dx/Rx/DC Orders Clinical Impression: Generalized weakness, Acute kidney injury, Debility, Edema of both lower extremities Disposition Disposition: Acute Care Hospital [facility]
--- NOTE | 2023-11-16 20:36 | ED.RN ---
pt c/o of generalized weakness starting suddenly today. c/o intermittent lightheadedness and a slight headache rated 3/10 on the pain scale. denies other complaints
--- NOTE | 2023-11-16 20:41 | EKG12_ITS ---
Test Reason : DYSRHYTHMIA Blood Pressure : / mmHG Vent. Rate : 063 BPM Atrial Rate : 063 BPM P-R Int : 188 ms QRS Dur : 106 ms QT Int : 370 ms P-R-T Axes : 073 -30 014 degrees QTc Int : 378 ms Normal sinus rhythm Left axis deviation Incomplete right bundle branch block Minimal voltage criteria for LVH, may be normal variant ( R in aVL ) Inferior infarct , age undetermined Cannot rule out Anterior infarct , age undetermined Abnormal ECG Confirmed by Mal Aaron ([id number]), editor school photograph CEASAR ANTUNEZ ([id number]) on 11/20/2023 10:24:49 AM Referred By: Confirmed By:Mal Aaron
[2023-11-16 20:42] LABS: Absolute Lymphocyte Count 2.45 X10^3/uL (0.83-4.51); Absolute Neutrophil Count 5.6 X10^3/uL (2.0-7.7); Basophil# 0.05 X10^3/uL; Basophil% 0.5 % (0-1); Eosinophil# 0.17 X10^3/uL; Eosinophils% 1.8 % (0-5); Hematocrit 38.7 % (40-54); Hemoglobin 11.9 g/dL (13.0-16.5); Lymphocyte # 2.45 X10^3/ul (0.83-4.51); Lymphocyte % 26.5 % (19-41); Mean Corp Hgb Conc 30.7 g/dL (32-36); Mean Corpuscular Hgb 27.5 pg (27.0-32.0); Mean Corpuscular Volume 89.4 fL (80-94); Mean Platelet Vol. 10.7 fl (6.2-12.0); Monocyte# 0.94 X10^3/uL; Monocyte% 10.2 % (0-10); NRBC Flagged by Analyzer 0 % (0-5); Neutrophil # 5.57 X10^3/uL (2.7-7.7); Neutrophil % 60.5 % (47-70); Platelet Count 239 K/mm3 (150-450); RBC Distribution Width CV 13.7 % (11.6-14.6); RBC Distribution Width SD 44.7 fl (35.1-43.9); Red Blood Count 4.33 M/mm3 (4.6-6.2); White Blood Count 9.2 K/mm3 (4.4-11.0)
--- NOTE | 2023-11-16 20:50 | RAD_ITS ---
STUDY: X-RAY CHEST REASON FOR EXAM: Male, 82 years old. weakness TECHNIQUE: Single AP portable view of the chest. COMPARISON: None. FINDINGS: The lungs are clear and expanded. Elevated right hemidiaphragm with some right lower lobe atelectasis. Normal size heart. Normal mediastinum and nghia. Normal visualized pulmonary arteries. Normal visualized aortic arch and descending thoracic aorta. Normal visualized thoracic spine. Normal visualized ribs, clavicles, and shoulders. There is no demonstrated abnormality of the visualized soft tissue structures of the upper abdomen. RAD/Chest 1 View (Portable) IMPRESSION: No active disease. Electronically Signed: Alfa Burns MD at 21:06 EDT ,
[2023-11-16 21:06] LABS: Anion Gap 5 (5-15); BUN 67 mg/dL (7-18); BUN/Creat Ratio 35.8 RATIO (10-20); Calcium,Total 9.1 mg/dL (8.5-10.1); Chloride 111 mmol/L (98-107); Creatinine, Serum 1.87 mg/dL (0.70-1.30); EST Glomerular Filtration Rate 37 mL/min (>60); Est Glom Filt Rate - Afr Amer 45 mL/min (>60); Estimated Creatinine Clearance 35.39 ml/min; Glucose 255 mg/dL (74-106); Potassium 4.7 mmol/L (3.5-5.1); Sodium Level 140 mmol/L (136-145); Troponin-I HS 64 pg/mL (3.0-78.0)
[2023-11-16 21:10] LABS: BNP,B-Type NATRIURETIC PEPTIDE 47.7 pg/mL (0-100)
[2023-11-16] MEDS: 0.9% Normal Saline (500mL Bag) 500 ML 999 ML IV (21:34)
[2023-11-16 22:04] VITALS: BP 128/53; PULSE 65; RESP 13; O2SAT 95
[2023-11-16 22:07] LABS: Bacteria 0 SEEN /hpf (None Seen); Mucous, Urine 0 SEEN /hpf (<or=2+); Red Blood Cells-Urine 0 SEEN /hpf (0-5); Squamous Epithelial Cells - UA 0 SEEN /hpf (0-5); White Blood Cells 0 SEEN /hpf (0-5)
[2023-11-16 22:09] LABS: Color, Urine Yellow (Yellow); Glucose, Dipstick Normal (Normal); Ketone-Dipstick Negative (Negative); Leukocyte Esterase-Dipstick Negative /ul (Negative); Nitrite-Dipstick Negative (Negative); Occult Blood-Urine 10 /ul (Negative); Protein-Dipstick Negative (Negative); Specific Gravity, Urine 1.015 (1.002-1.030); Urine Clarity Clear (Clear); Urine Urobilinogen Normal (Normal)
[2023-11-16 22:26] LABS: Urine Bilirubin Dipstick 3 mg/dL (Negative)
[2023-11-17] VITALS (7 sets, daily range): BP systolic 114–153; BP diastolic 50–79; PULSE 58–80; RESP 16–20; TEMP 36.6–36.9; O2SAT 94–97; BMI 38.0
--- NOTE | 2023-11-17 00:51 | HP.PCM.HOS_ITS ---
HPI - General General Date of Admission: 11/17/23 Date of Service: 11/17/23 Chief Complaint: weakness. HPI Narrative PHILLIP ANGEL, is a 82 M who presents with weakness. Patient is much of the day wheelchair bound. Does get up to either pivot or could have short distances currently spends most of his day in the wheelchair. Yesterday, noted that he was just very weak that progressed throughout the day to the point where he was unable to get up. With that,, and the fact that he lives by himself, he went to emergency room for evaluation. His workup in the emergency room showed his creatinine being 1.87, elevated from 1.25 back in December 2022. He received a liter of IV fluids. He is recently treated for bilateral lower extremity wounds and venous stasis ulcers which have been improving. With the patient's KELVIN and weakness, hospital service was contacted for admission. [facility] Medical History Lactose intolerance Debility Bilateral edema of lower extremity Osteoarthritis Stroke/cerebrovascular accident Hypothyroid High cholesterol Diabetes Hypertension Home Medications ?Medication ?Instructions ?Recorded ?Last Taken ?Type aspirin 325 mg tablet 325 mg PO DAILY@0800 HEALTH 08/20/16 07/10/22 08:57 History MAINTENANCE atenolol 25 mg tablet 25 mg PO QHS BP 08/20/16 07/09/22 21:08 History atorvastatin 40 mg tablet 40 mg PO QHS CHOLESTEROL 08/20/16 07/09/22 21:08 History levothyroxine 75 mcg tablet 75 mcg PO DAILY THYROID 08/20/16 07/10/22 06:12 History metformin 850 mg tablet 850 mg PO BIDCM DM 08/20/16 07/06/22 History nitroglycerin 0.4 mg sublingual 0.4 mg sublingual Q5M PRN Chest 08/20/16 Unknown History tablet Pain etodolac 400 mg tablet 400 mg PO BID PAIN 11/09/21 07/10/22 08:58 History hydrochlorothiazide 12.5 mg capsule 12.5 mg PO DAILY BP 07/06/22 07/10/22 08:57 History insulin glargine-yfgn 100 unit/mL 27 unit subcut QHS 12/19/22 Unknown History (3 mL) subcutaneous pen insulin lispro 100 unit/mL 9 unit subcut TID 12/19/22 Unknown History subcutaneous pen (Humalog KwikPen (U-100) Insulin) furosemide 20 mg tablet 40 mg PO DAILY 11/16/23 Unknown History gabapentin 300 mg capsule 300 mg PO TID 11/16/23 Unknown History glucosamine-chondroitin 250 mg-200 2 tab PO TID 11/16/23 Unknown History mg tablet (Osteo Bi-Flex) losartan 100 mg tablet 100 mg PO DAILY 11/16/23 Unknown History omega 7-kno-qou-fish oil 1,200 mg 1 cap PO BID 11/16/23 Unknown History (144 mg-216 mg) capsule (Fish Oil) Allergy/AdvReac Type Severity Reaction Status Date / Time iodine Allergy Swelling Verified 11/16/23 19:54 milk Allergy Upset Verified 11/16/23 19:54 Stomach Milk Containing Products Allergy Upset Verified 11/16/23 19:54 (Dairy) (Milk Containing Stomach Products) Penicillins AdvReac Mild PT UNSURE Verified 11/16/23 19:54 OF REACTION Food Allergies: Uncoded AdvReac Diarrhea Verified 11/16/23 19:54 Surgical History History of tonsillectomy History of appendectomy History of cholecystectomy Social History household members: none Smoking Status: Never smoker alcohol intake: never substance use type: does not use ROS ROS Narrative Has many food intolerances so he does not eat much in general. Does not change however. Occasion gets blurry vision but this has been a chronic issue. All review of systems were negative except as mentioned above in the history of present illness and the other review of systems. Vital Signs Vital Signs Vital Signs: 11/16/23 19:51 11/16/23 19:51 11/16/23 20:35 Temperature 36.8 C Temperature Source Oral Pulse Rate 76 Respiratory Rate 16 Respiratory Effort Normal Respiratory Pattern Normal Blood Pressure 126/59 H Blood Pressure Mean 81 Pulse Ox Oxygen Delivery Method 11/16/23 22:04 11/17/23 00:00 11/17/23 00:33 Temperature 36.7 C Temperature Source Pulse Rate 65 64 62 Respiratory Rate 13 20 H 18 Respiratory Effort Respiratory Pattern Blood Pressure 128/53 H 119/50 L 114/66 Blood Pressure Mean 78 73 82 Pulse Ox 95 96 96 Oxygen Delivery Method Room Air Room Air Weight Weight: 113.3 kg Body Mass Index (BMI) 40.3 Physical Exam Const Constitutional Narrative: Pleasant. Disheveled appearance. Afebrile. Nontoxic. HEENT normocephalic and head/scalp atraumatic HEENT Narrative: Edentulous. Mucous membranes moist. Eyes Eyes Narrative: No icterus. Neck no lymphadenopathy Neck Narrative: No thyromegaly Resp normal respiratory effort, no retractions, no use of accessory muscles and clear to auscultation bilaterally Cardio regular rate, regular rhythm, S1 normal heart sound and S2 normal heart sound GI normal to inspection, nondistended, normoactive bowel sounds, soft to palpation, non-tender and non-distended Extremity Extremity Narrative: Bilateral lower extremity edema. Has venous stasis changes to his lower extremities. Has bilateral copeland wounds that are scabbed over. No active sign of infection at this time. Neuro moves all extremities Sensorium / Orientation: awake and alert Results Lab / Micro Data 11/16/23 20:35 11/16/23 20:35 Labs: Laboratory Results - last 24 hr 11/16/23 20:35: WBC 9.2, RBC 4.33 L, Hgb 11.9 L, Hct 38.7 L, MCV 89.4, MCH 27.5, MCHC 30.7 L, RDW Std Deviation 44.7 H, RDW Coeff of Tyesha 13.7, Plt Count 239, MPV 10.7, Immature Gran % (Auto) 0.500, Neut % (Auto) 60.5, Lymph % (Auto) 26.5, M beulah % (Auto) 10.2 H, Eos % (Auto) 1.8, Baso % (Auto) 0.5, Absolute Neuts (auto) 5.6, Absolute Lymphs (auto) 2.45, Nucleated RBC % 0, Sodium 140, Potassium 4.7, Chloride 111 H, Carbon Dioxide 24.0, Anion Gap 5, BUN 67 H, Creatinine 1.87 H, Estim Creat Clear Calc 35.39, Est GFR (MDRD) Af Amer 45 L, Est GFR (MDRD) Non-Af 37 L, BUN/Creatinine Ratio 35.8 H, Glucose 255 H, Calcium 9.1, Troponin I High Sens 64, B-Natriuretic Peptide 47.7, TSH 1.80 11/16/23 22:00: Urine Color Yellow, Urine Clarity Clear, Urine pH 5.0, Ur Specific [place] 1.015, Urine Protein Negative, Urine Glucose (UA) Normal, Urine Ketones Negative, Urine Occult Blood 10 H, Urine Nitrite Negative, Urine Bilirubin 3 H, Urine Urobilinogen Normal, Ur Leukocyte Esterase Negative, Urine RBC 0 SEEN, Urine WBC 0 SEEN, Ur Squamous Epith Cells 0 SEEN, Urine Bacteria 0 SEEN, Urine Mucus 0 SEEN Micro: Microbiology 11/16/23 23:30 Stool Stool Occult Blood ([place]) - Final 11/16/23 20:33 Mucosa - Nose SARS-CoV-2, Influenza & RSV (PCR) - Final Imaging Radiology Impression Chest X-Ray 11/16/23 20:50 IMPRESSION: No active disease. Electronically Signed: Alfa Burns MD at 21:06 EDT , Assessment & Plan Assessment/Plan (1) Debility: (2) Acute kidney injury: PLAN: Plan Acute kidney injury * Suspected, however I do not have any recent lab studies to verify that. I cannot rule out this being progression of chronic kidney disease. * Plan is to hold his furosemide, hydrochlorothiazide, losartan. Given additional liter of IV fluids and reevaluate. * No need for renal replacement therapy at this time. Debility * Baseline, his performance status is far from ideal. Patient spends much of his day in a wheelchair and either walk short distances or just pivots from place to place. This may been exacerbated by dehydration. * PT OT evaluate and treat. Case management to assist with disposition. * Patient states that his goal is to get back home as he has been living in the home for 15 years. Patient lives by himself. He is open to the possibility of a shelter facility. Patient high risk for falls and significant morbidity if he were to return home too soon. Therefore I suspect patient will require shelter facility upon discharge. Diabetes mellitus type 2, insulin-dependent * Continue with basal and prandial insulin. Add sliding scale insulin. * Check an A1c * Hold metformin given KELVIN Venous stasis ulcers * Subsequent visit. Patient has been established with wound care and has been attended to by them. Wounds overall appear to be scabbed over and healed. No active signs of infection. * Will consult wound care. The meantime, dry sterile dressing. Chronic conditions * Hypothyroidism: Continue levothyroxine * Hypertension: Continue with atenolol. Will be holding off on his diuretics and losartan for now. VTE prophylaxis with subcu heparin CODE STATUS: Addressed with the patient. Patient wishes to be DNR Comfort Care arrest no intubation. Charges/Coding Visit Charges Inpatient E&M: 06702 Init Hosp L3
[2023-11-17] MEDS: 0.9% Normal Saline (1000mL) 1,000 ML 150 ML IV (01:26)
[2023-11-17] MEDS: 0.9% Saline Lock 10 ML Syringe IV ×3 (01:27→21:29)
[2023-11-17] MEDS: Acetaminophen 325 MG Tablet 650 MG PO ×2 (02:19→21:30)
[2023-11-17 02:44] LABS: Bedside Glucose 254 mg/dL (74-106)
[2023-11-17 05:00] LABS: Absolute Lymphocyte Count 2.28 X10^3/uL (0.83-4.51); Absolute Neutrophil Count 5.2 X10^3/uL (2.0-7.7); Basophil# 0.04 X10^3/uL; Basophil% 0.5 % (0-1); Eosinophil# 0.25 X10^3/uL; Eosinophils% 2.9 % (0-5); Hematocrit 36.4 % (40-54); Hemoglobin 11.3 g/dL (13.0-16.5); Lymphocyte # 2.28 X10^3/ul (0.83-4.51); Lymphocyte % 26.1 % (19-41); Mean Corpuscular Hgb 27.5 pg (27.0-32.0); Mean Corpuscular Volume 88.6 fL (80-94); Mean Platelet Vol. 11.3 fl (6.2-12.0); Monocyte% 10.3 % (0-10); NRBC Flagged by Analyzer 0 % (0-5); Neutrophil # 5.24 X10^3/uL (2.7-7.7); Neutrophil % 59.9 % (47-70); Platelet Count 247 K/mm3 (150-450); RBC Distribution Width CV 13.7 % (11.6-14.6); RBC Distribution Width SD 44.3 fl (35.1-43.9); Red Blood Count 4.11 M/mm3 (4.6-6.2); White Blood Count 8.7 K/mm3 (4.4-11.0)
[2023-11-17] MEDS: Levothyroxine 75 MCG Tablet PO (05:17)
[2023-11-17] MEDS: Heparin Injection (Vial) 5,000 UNIT/ML VIAL 5000 UNIT SC ×3 (05:17→21:30)
[2023-11-17 05:24] LABS: Anion Gap 6 (5-15); BUN 62 mg/dL (7-18); BUN/Creat Ratio 42.8 RATIO (10-20); Calcium,Total 9.1 mg/dL (8.5-10.1); Chloride 112 mmol/L (98-107); Creatinine, Serum 1.45 mg/dL (0.70-1.30); EST Glomerular Filtration Rate 49 mL/min (>60); Est Glom Filt Rate - Afr Amer 60 mL/min (>60); Estimated Creatinine Clearance 45.72 ml/min; Glucose 262 mg/dL (74-106); Potassium 4.3 mmol/L (3.5-5.1); Sodium Level 141 mmol/L (136-145)
--- NOTE | 2023-11-17 08:09 | WOUNDNOTE ---
wound photo: bilateral lower legs
[2023-11-17] MEDS: Aspirin 325 MG Tablet PO (08:28)
[2023-11-17] MEDS: Insulin Lispro 100 UNIT/ML INSULN.PEN SC ×3 (08:32→17:04)
[2023-11-17] MEDS: Insulin Lispro 100 UNIT/ML INSULN.PEN 9 UNIT SC ×3 (08:33→17:03)
[2023-11-17] MEDS: Glucerna Shake 120 ML LIQUID PO ×3 (08:37→17:04)
[2023-11-17 08:40] LABS: Bedside Glucose 298 mg/dL (74-106)
[2023-11-17 09:51] LABS: Hemoglobin A1c 8.6 % (3.8-5.6)
--- NOTE | 2023-11-17 10:15 | CASEMGMT ---
ROSE CEDILLO Assessment Face to Face with patient for initial transition planning/care coordination assessment. ROSE CDEILLO introduced self and role at [facility] [place], pt voices understanding. Pt is A&Ox4 and is resting comfortably in bed and is calm. Care providers, pharmacy, and demographics verified. Admitting dx: KELVIN, Debility PCP: Demetris Fuentes Specialists: Denies Preferred Pharmacy: [facility] Insurance: [facility] A/B, [employer] Prescription Benefit: Yes LNOK: Demetris and Jerrod Archer (sons on file). Pt also reports that he has 3 others sons and a daughter Living Arrangements: Pt lives alone in a 2 story home with a ramp to enter ADLs/IADLs: Pt requires help. Pt states that he is active with [employer] [facility] (PT) through the [employer]. Pt also states that he has a private duty cotton cleaner come once every 2 weeks. Transportation: Pt states that he quit driving 4 months ago. Pt states that his kids can drive him DME: Working [employer] with enough supplies. Pt uses a W/C mainly. Pt has a FWW, Cane, and BP Cuff at home. HHC/SNF: Active with HH through [employer]. Pt states history at [facility] [place] TCU and was pleased with their care Wound: Pt states that he has his first appt with the wound center on 11/27 Pt?s goal: TCU Plan: 6-Click is 9. Pt states that he is willing to go to a SNF at time of DC. Pt states that he prefers the TCU. SW is aware and to follow pt. Bowen Luong RN, CM
[2023-11-17 11:56] LABS: Bedside Glucose 354 mg/dL (74-106)
--- NOTE | 2023-11-17 12:14 | CASEMGMT ---
Addendum entered by Melba Alcantara 11/17/23 16:29: Social Work- TCU is reviewing and will follow through the weekend to determine appropriateness of acceptance. SW reviewed this with pt, who states he *may* consider [facility] or [facility] as a second choice, but will talk to his kids this weekend to see if they have any preferences. SW will f/u on Monday. TERESA Lacey Original Note: Social Work- A list of SNF providers including quality and resource use data and consistent with the patient?s preferred geographic region, medical needs, and insurance network were provided from the CarePort Guide. Pt requests TCU as FOC. Pt will examine list for other choices. Pt states that he receives in-home PT/OT on Fridays, C one day per week, and a data warehouse manager who comes every other week. Pt states that his home is modified with a walk-in shower, wheelchair accessible doorways, a stair lift, and ramp. Pt states that he has lived in his home over 50 years and has neighbors who are good supports and freely visit his home. Pt states that he has 5 sons and a daughter; 5 of the children live within 30 minutes from the home. Pt reports that he has two sons who routinely come on Mondays and Tuesdays with the intent to transport pt for groceries or medical appointments, as pt stopped driving 4-5 months ago. Pt has a car that sons use to transport pt d/t mobility issues with larger vehicles. Pt states that he owns his home and car outright. Pt states that he was for 60 years and knew his for 71 years and reports a close family native and healthy dynamics. Pt a few years ago while pt was in TCU. Pt reports that the staff was exceptional at [facility] during that time, hence his desire to return there for rehab. Pt was pleasant and cooperative in demanor and presented as oriented x3. TERESA Lacey
--- NOTE | 2023-11-17 12:53 | PN.HOSP_ITS ---
Hospitalist Note Patient was seen and examined today, his creatinine was improved at 1.45 today, I talked with him briefly about going to an extended care facility for short- term rehab services. Patient states that he does not ambulate well due to severe osteoarthritis of both knees. PT and OT will see the patient and most probably he will require at least short-term placement in a skilled care facility.
--- NOTE | 2023-11-17 14:20 | CASEMGMT ---
Addendum entered by Lucita Suggs 11/17/23 15:51: Received tc from [facility] who states pt was active last year and was dc'd on 09/08/22. Addendum entered by Lucita Suggs 11/17/23 15:05: TC to [facility] line at [facility], left message with question on who is providing pt PT and OT services. Left return call back info. Message to [facility] via careport to see if pt HHC is through this agency. Will await response. Original Note: TC to [facility] in [place], spoke with Judy. [facility] is not through the [facility] and are a privately paid non skilled agency that sees pt on Wednesdays for 2 hours. They are aware pt is hospitalized with the [facility] for SN[facility].
--- NOTE | 2023-11-17 15:23 | CHAPLAIN ---
Type of Pastoral Visit _x__ Initial Visit ___ Follow-up Visit ___ On-call Visit ___ General Patient Visit ___ Spiritual Assessment ___ Family Conference ___ Bereavement ___ Rapid Response ___ Code Blue ___ Other (describe below) Pastoral Care Referral From _x__ Patient ___ Family ___ Nurse ___ Physician ___ [place] Roller ___ Bunk Assembler ___ Other (describe below) Sacrament/Intervention _x__ Active listening ___ Anointing ___ Evangelical ___ Bereavement ___ Communion ___ Ann exploration ___ _x__ Life review _x__ Prayer ___ Reconciliation ___ Sacrament of Sick _x__ Supportive presence ___ Wedding ___ Other (describe below) Pastoral Comments patient gave update on his life, health, and home situation; pt wants to stay in his home and has some help to do so; pt admits to loneliness at night; pt talks about his family support; pt welcomes presence and prayer
[2023-11-17 16:17] LABS: Bedside Glucose 283 mg/dL (74-106)
[2023-11-17] MEDS: Atorvastatin Calcium 40 MG Tablet PO (21:31)
[2023-11-17] MEDS: Atenolol 25 MG Tablet PO (21:31)
[2023-11-17] MEDS: Insulin Glargine-YFGN 100 UNIT/ML Pen 27 UNIT SC (21:32)
[2023-11-18 01:04] VITALS: BP 134/60; PULSE 58; RESP 20; TEMP 36.5; O2SAT 94
[2023-11-18] MEDS: oxyCODONE 5 MG Tablet PO ×2 (01:07→18:25)
[2023-11-18 04:11] VITALS: BP 132/71; PULSE 66; RESP 20; TEMP 36.5; O2SAT 95
[2023-11-18 06:30] LABS: Bedside Glucose 243 mg/dL (74-106)
[2023-11-18] MEDS: Levothyroxine 75 MCG Tablet PO (06:56)
[2023-11-18] MEDS: Heparin Injection (Vial) 5,000 UNIT/ML VIAL 5000 UNIT SC ×3 (06:56→21:31)
[2023-11-18 08:10] VITALS: BP 129/64; PULSE 55; RESP 18; TEMP 36.6; O2SAT 94
[2023-11-18] MEDS: Aspirin 325 MG Tablet PO (08:13)
[2023-11-18] MEDS: Glucerna Shake 120 ML LIQUID PO ×2 (08:13→16:38)
[2023-11-18] MEDS: Insulin Lispro 100 UNIT/ML INSULN.PEN SC ×3 (08:14→16:39)
[2023-11-18] MEDS: Insulin Lispro 100 UNIT/ML INSULN.PEN 9 UNIT SC ×3 (08:14→16:38)
[2023-11-18 08:37] LABS: Bedside Glucose 206 mg/dL (74-106)
[2023-11-18 11:41] LABS: Bedside Glucose 203 mg/dL (74-106)
[2023-11-18 14:19] VITALS: BP 129/61; PULSE 67; RESP 18; TEMP 37.2; O2SAT 95
--- NOTE | 2023-11-18 16:20 | PCM.PN.HOSP ---
Reason for Visit Reason for Visit: Diagnoses Acute kidney failure, unspecified (11/17/23) Other malaise (11/17/23) Subjective Subjective Patient was seen and examined today, he states his preference would be to go to TCU unit or to be discharged home if he was unable to be accepted to TCU. Objective Data Objective Data Vital Signs: Vital Signs Temp Pulse Resp BP Pulse Ox O2 Del Method 99 F 67 18 129/61 H 95 Room Air 11/18/23 14:19 11/18/23 14:19 11/18/23 14:19 11/18/23 14:19 11/18/23 14:19 11/18/23 15:00 Oxygen Delivery Method Room Air Weight: 110.2 kg Body Mass Index (BMI) 38.0 Intake & Output: Intake and Output for Last 24 Hours 11/16/23 11/17/23 11/18/23 23:59 23:59 23:59 Intake Total 3400 / 3400 Balance 3400 / 3400 Lab / Micro Data 11/17/23 03:43 11/17/23 03:45 Labs: Laboratory Results - last 24 hr 11/17/23 21:21: POC Glucose 243 H 11/18/23 08:05: POC Glucose 206 H 11/18/23 11:24: POC Glucose 203 H Micro: Microbiology 11/16/23 23:30 Stool Stool Occult Blood (TEAGAN) - Final 11/16/23 20:33 Mucosa - Nose SARS-CoV-2, Influenza & RSV (PCR) - Final Physical Exam Const alert, oriented x3 and no apparent distress General Appearance: cooperative, well kempt and well developed Orientation / Consciousness: awake, oriented to person, oriented to place and oriented to time HEENT normocephalic, head/scalp atraumatic and moist oral mucous membranes Eyes PERRL, EOMs intact bilaterally and conjunctivae normal Neck supple, no JVD, thyroid normal and no carotid bruits General: trachea midline Resp normal respiratory effort, no retractions, no use of accessory muscles and clear to auscultation bilaterally Auscultation: Negative for rales, rhonchi or wheezes Cardio regular rate, regular rhythm, S1 normal heart sound, S2 normal heart sound, no murmurs, no rub and no gallops GI normal to inspection, nondistended, normoactive bowel sounds, soft to palpation, non-tender and non-distended Extremity no clubbing, cyanosis or edema Skin no rashes or lesions noted General Skin Exam: no breakdown Neuro oriented x3, CN's II-XII intact bilaterally, moves all extremities, no focal motor deficits and no sensory deficits noted Sensorium / Orientation: awake and alert Speech: speech normal Psych affect normal Assessment & Plan Assessment/Plan (1) Debility: PLAN: Plan 1. Acute on chronic debility-PT and OT will continue to work with patient, we will attempt to get approval for the patient to go to an extended care facility for inpatient rehab services #2 chronic kidney disease stage IIIa-complicates care, management, recovery, and prognosis #3 type 2 diabetes-blood sugars will continue to be monitored, sliding scale insulin will be given as needed #4 hyperlipidemia-patient is on atorvastatin #5 essential hypertension-patient remains on his home medications with the exception of hydrochlorothiazide and losartan, blood pressure will continue to be monitored, losartan and hydrochlorothiazide were held due to patient's increased creatinine and BUN. #6 hypothyroidism-patient is on Synthroid Total clinical time spent by myself addressing patient's medical issues, reviewing all of his data, and collaborating with patient's care team: 25 minutes Charges/Coding Visit Charges Inpatient E&M: [id number] Subs Hosp L1
[2023-11-18 16:21] LABS: Bedside Glucose 284 mg/dL (74-106)
[2023-11-18] MEDS: Acetaminophen 325 MG Tablet 650 MG PO (17:47)
[2023-11-18 18:20] VITALS: BP 165/51; PULSE 60; RESP 18; TEMP 37.1; O2SAT 96
[2023-11-18 21:20] VITALS: BP 131/62; PULSE 60; RESP 18; TEMP 36.8; O2SAT 95
[2023-11-18] MEDS: Insulin Glargine-YFGN 100 UNIT/ML Pen 27 UNIT SC (21:32)
[2023-11-18] MEDS: Atenolol 25 MG Tablet PO (21:33)
[2023-11-18] MEDS: Atorvastatin Calcium 40 MG Tablet PO (21:33)
[2023-11-18] MEDS: 0.9% Saline Lock 10 ML Syringe IV (21:33)
[2023-11-18 23:36] LABS: Bedside Glucose 272 mg/dL (74-106)
--- NOTE | 2023-11-18 23:46 | NURSING ---
Patient requested pain medication. When nurse came into room, patient was asleep. Chest rise present. Patient not awakened.
[2023-11-19] MEDS: Acetaminophen 325 MG Tablet 650 MG PO ×3 (02:01→22:58)
[2023-11-19 02:03] VITALS: BP 172/74; PULSE 73; RESP 20; TEMP 36.7; O2SAT 97
[2023-11-19 05:12] VITALS: BP 146/69; PULSE 65; RESP 20; TEMP 36.5; O2SAT 95
[2023-11-19] MEDS: Heparin Injection (Vial) 5,000 UNIT/ML VIAL 5000 UNIT SC ×3 (05:15→22:58)
[2023-11-19] MEDS: Levothyroxine 75 MCG Tablet PO (05:15)
[2023-11-19 07:55] VITALS: BP 151/54; PULSE 57; RESP 18; TEMP 36.8; O2SAT 96
[2023-11-19] MEDS: Aspirin 325 MG Tablet PO (07:57)
[2023-11-19] MEDS: oxyCODONE 5 MG Tablet PO ×2 (07:57→16:33)
[2023-11-19] MEDS: Glucerna Shake 120 ML LIQUID PO ×2 (07:57→11:37)
[2023-11-19] MEDS: Insulin Lispro 100 UNIT/ML INSULN.PEN SC ×3 (07:58→16:24)
[2023-11-19] MEDS: Insulin Lispro 100 UNIT/ML INSULN.PEN 9 UNIT SC ×3 (07:58→16:23)
[2023-11-19 09:15] LABS: Bedside Glucose 247 mg/dL (74-106)
--- NOTE | 2023-11-19 12:56 | PCM.PN.HOSP ---
Reason for Visit Reason for Visit: Diagnoses Acute kidney failure, unspecified (11/17/23) Other malaise (11/17/23) Subjective Subjective Patient was seen and examined today, he states he got a good night sleep last night. He has no complaints at this time. Objective Data Objective Data Vital Signs: Vital Signs Temp Pulse Resp BP Pulse Ox O2 Del Method 98.2 F 57 L 18 151/54 H 96 Room Air 11/19/23 07:55 11/19/23 07:55 11/19/23 07:55 11/19/23 07:55 11/19/23 07:55 11/19/23 08:05 Oxygen Delivery Method Room Air Weight: 110.2 kg Body Mass Index (BMI) 38.0 Intake & Output: Intake and Output for Last 24 Hours 11/17/23 11/18/23 11/19/23 23:59 23:59 23:59 Intake Total 3400 / 3400 Balance 3400 / 3400 Lab / Micro Data 11/17/23 03:43 11/17/23 03:45 Labs: Laboratory Results - last 24 hr 11/18/23 16:03: POC Glucose 284 H 11/18/23 21:26: POC Glucose 272 H 11/19/23 07:51: POC Glucose 247 H Micro: Microbiology 11/16/23 23:30 Stool Stool Occult Blood (TEAGAN) - Final 11/16/23 20:33 Mucosa - Nose SARS-CoV-2, Influenza & RSV (PCR) - Final Physical Exam Narrative alert, oriented x3 and no apparent distress General Appearance: cooperative, well kempt and well developed Orientation / Consciousness: awake, oriented to person, oriented to place and oriented to time HEENT normocephalic, head/scalp atraumatic and moist oral mucous membranes Eyes PERRL, EOMs intact bilaterally and conjunctivae normal Neck supple, no JVD, thyroid normal and no carotid bruits General: trachea midline Resp normal respiratory effort, no retractions, no use of accessory muscles and clear to auscultation bilaterally Auscultation: Negative for rales, rhonchi or wheezes Cardio regular rate, regular rhythm, S1 normal heart sound, S2 normal heart sound, no murmurs, no rub and no gallops GI normal to inspection, nondistended, normoactive bowel sounds, soft to palpation, non-tender and non-distended Extremity no clubbing, cyanosis or edema Skin no rashes or lesions noted General Skin Exam: no breakdown Neuro oriented x3, CN's II-XII intact bilaterally, moves all extremities, no focal motor deficits and no sensory deficits noted Sensorium / Orientation: awake and alert Speech: speech normal Psych affect normal Assessment & Plan Assessment/Plan (1) Debility: PLAN: Plan 1. Acute on chronic debility secondary to osteoarthritis-PT and OT will continue to work with patient, we will attempt to get approval for the patient to go to an extended care facility for inpatient rehab services, patient tells this examiner that if he can go to TCU he would prefer to go home upon discharge from the hospital. #2 chronic kidney disease stage IIIa-complicates care, management, recovery, and prognosis #3 type 2 diabetes-blood sugars will continue to be monitored, sliding scale insulin will be given as needed #4 hyperlipidemia-patient is on atorvastatin #5 essential hypertension-patient remains on his home medications with the exception of his hydrochlorothiazide, patient will be placed on his losartan which she had been off of during this admission. #6 hypothyroidism-patient is on Synthroid Total clinical time spent by myself addressing patient's medical issues, reviewing all of his data, and collaborating with patient's care team: 25 minutes Charges/Coding Visit Charges Inpatient E&M: [id number] [facility] Hosp L1
[2023-11-19 14:20] LABS: Bedside Glucose 218 mg/dL (74-106)
[2023-11-19] MEDS: Losartan Potassium 100 MG Tablet PO (14:20)
[2023-11-19 14:45] VITALS: BP 136/59; PULSE 62; RESP 18; TEMP 36.9; O2SAT 96
[2023-11-19 16:30] VITALS: BP 128/55; PULSE 62; RESP 18; TEMP 36.8; O2SAT 95
[2023-11-19 17:09] LABS: Bedside Glucose 205 mg/dL (74-106)
[2023-11-19 22:55] VITALS: BP 127/59; PULSE 72; RESP 20; TEMP 37; O2SAT 96
[2023-11-19] MEDS: Atorvastatin Calcium 40 MG Tablet PO (22:57)
[2023-11-19] MEDS: Atenolol 25 MG Tablet PO (22:58)
[2023-11-19] MEDS: Insulin Glargine-YFGN 100 UNIT/ML Pen 27 UNIT SC (23:09)
[2023-11-19 23:45] LABS: Bedside Glucose 201 mg/dL (74-106)
[2023-11-20 02:25] VITALS: BP 114/71; PULSE 63; RESP 20; TEMP 36.5; O2SAT 96
[2023-11-20] MEDS: Acetaminophen 325 MG Tablet 650 MG PO (05:01)
[2023-11-20] MEDS: Levothyroxine 75 MCG Tablet PO (05:02)
[2023-11-20] MEDS: Heparin Injection (Vial) 5,000 UNIT/ML VIAL 5000 UNIT SC ×2 (05:02→14:06)
[2023-11-20 05:09] VITALS: BP 135/65; PULSE 60; RESP 18; TEMP 36.8; O2SAT 94
[2023-11-20 07:09] LABS: Anion Gap 5 (5-15); BUN 31 mg/dL (7-18); BUN/Creat Ratio 25.6 RATIO (10-20); Calcium,Total 9.4 mg/dL (8.5-10.1); Chloride 110 mmol/L (98-107); Creatinine, Serum 1.21 mg/dL (0.70-1.30); EST Glomerular Filtration Rate 61 mL/min (>60); Est Glom Filt Rate - Afr Amer 74 mL/min (>60); Estimated Creatinine Clearance 54.79 ml/min; Glucose 138 mg/dL (74-106); Potassium 4.2 mmol/L (3.5-5.1); Sodium Level 139 mmol/L (136-145)
[2023-11-20 07:59] VITALS: BP 118/45; PULSE 62; RESP 18; TEMP 36.6; O2SAT 95
[2023-11-20] MEDS: Aspirin 325 MG Tablet PO (08:10)
[2023-11-20] MEDS: Glucerna Shake 120 ML LIQUID PO ×2 (08:11→12:31)
[2023-11-20] MEDS: Losartan Potassium 100 MG Tablet PO (08:11)
--- NOTE | 2023-11-20 08:30 | CASEMGMT ---
Social Work- SW met with pt to discuss directives. Pt states that he has HCPOA and Living Will. Pt was advised that there is not a copy on file. TERESA Lacey
--- NOTE | 2023-11-20 08:31 | PCM.PN.HOSP ---
Reason for Visit Reason for Visit: Diagnoses Acute kidney failure, unspecified (11/17/23) Other malaise (11/17/23) Subjective Subjective Patient is an 82-year-old gentleman who apparently lives alone presented with progressive generalized weakness due to severe osteoarthritis Objective Data Objective Data Vital Signs: Vital Signs Temp Pulse Resp BP Pulse Ox O2 Del Method 97.9 F 62 18 118/45 L 95 Room Air 11/20/23 07:59 11/20/23 07:59 11/20/23 07:59 11/20/23 07:59 11/20/23 07:59 11/20/23 07:59 Oxygen Delivery Method Room Air Weight: 110.2 kg Body Mass Index (BMI) 38.0 Lab / Micro Data 11/17/23 03:43 11/20/23 06:36 Labs: Laboratory Results - last 24 hr 11/19/23 07:51: POC Glucose 247 H 11/19/23 11:36: POC Glucose 218 H 11/19/23 16:22: POC Glucose 205 H 11/19/23 23:07: POC Glucose 201 H 11/20/23 06:36: Sodium 139, Potassium 4.2, Chloride 110 H, Carbon Dioxide 24.0, Anion Gap 5, BUN 31 H, Creatinine 1.21, Estim Creat Clear Calc 54.79, Est GFR (MDRD) Af Amer 74, Est GFR (MDRD) Non-Af 61, BUN/Creatinine Ratio 25.6 H, Glucose 138 H, Calcium 9.4 Micro: Microbiology 11/16/23 23:30 Stool Stool Occult Blood (TEAGAN) - Final 11/16/23 20:33 Mucosa - Nose SARS-CoV-2, Influenza & RSV (PCR) - Final Physical Exam Narrative GENERAL: cooperative HEENT: Atraumatic; normocephalic EYES; Anicteric, Normal Conjunctiva NECK; supple, normal thyroid, RESPIRATORY: Diminished to auscultation CARDIOVASCULAR: Regular S1 S2, GI: soft, normoactive bowel sounds, : No Renal angle tenderness; EXTREMITIES: No edema, no clubbing, MUSCULOSKELETAL: no muscle wasting NEURO: Awake; no lateralizing signs. SKIN: No Rash PSYCH; Flat affect Assessment & Plan Assessment/Plan (1) Debility: PLAN: Plan Patient is an 82-year-old gentleman who apparently lives alone presented with progressive generalized weakness due to severe osteoarthritis 1. Physical deconditioning - Requested for PT OT eval and social work program coordinator to assist with discharge planning 2. Diabetes mellitus type II -patient's oral hypoglycemics held. Placed on long acting insulin, Accu-Cheks a.c. and at bedtime and covered with sliding scale insulin 3. Hypothyroidism - Patient is on levothyroxine home dose continued 4. Acute kidney injury ? Baseline creatinine 1.29 creatinine on admission was 1.87 Home meds adjusted with significant improvement in creatinine down to 1.21 5. Essential hypertension ? Patient antihypertensives adjusted due to his impaired kidney function. HCTZ and losartan discontinued 6. Diabetic polyneuropathy ? Patient is on gabapentin 7. Generalized osteoarthritis ? Complicating care pain meds as needed 8. DVT prophylaxis ? SC Lovemaydax Time spent in the patient's overall evaluation,decision-making process, review of diagnostic data, adjustment of management, discussion with other providers, nursing nursing and ancillary staff involved in patient's care documentation, 35 Minutes
[2023-11-20] MEDS: Insulin Lispro 100 UNIT/ML INSULN.PEN 9 UNIT SC ×2 (08:42→12:29)
--- NOTE | 2023-11-20 10:04 | CASEMGMT ---
Received tc from Ebony at [place], she states pt is not listed in the [place] database for services.
--- NOTE | 2023-11-20 10:06 | WOUNDNOTE ---
wound photo: bilateral lower legs
--- NOTE | 2023-11-20 10:12 | CASEMGMT ---
Social Work TCU can take pt when ready. SW let pt know, pt agreeable to TCU today. ROSIO let physician know, he will discharge pt. JIHAN Diego
--- NOTE | 2023-11-20 10:49 | TREXTCAR_ITS ---
Diet Diet Order/Speech Therapy: 11/17/23 11:16 Diet: Consistent Carb - Calorie Controlled Dietary Modifications:: Sodium Restricted Lactose Controlled Is pt able to select menu?: Yes How many daily calories?: 2000 calorie Wound(s) R copeland: Wound Type: Stasis Ulcer Dressing Change: Adaptic L copeland: Wound Type: Stasis Ulcer Dressing Change: Adaptic Therapies Physical Therapy: Eval and Treat Occupational Therapy: Eval and Treat Problem/Diagnosis (1) Debility: Status: Acute Code(s): R53.81 - Other malaise Plan Patient is an 82-year-old gentleman who apparently lives alone presented with progressive generalized weakness due to severe osteoarthritis 1. Physical deconditioning - Requested for PT OT eval and social welfare administrator to assist with discharge planning 2. Diabetes mellitus type II -patient's oral hypoglycemics held. Placed on long acting insulin, Accu-Cheks a.c. and at bedtime and covered with sliding scale insulin 3. Hypothyroidism - Patient is on levothyroxine home dose continued 4. Acute kidney injury ? Baseline creatinine 1.29 creatinine on admission was 1.87 Home meds adjusted with significant improvement in creatinine down to 1.21 5. Essential hypertension ? Patient antihypertensives adjusted due to his impaired kidney function. HCTZ and losartan discontinued 6. Diabetic polyneuropathy ? Patient is on gabapentin 7. Generalized osteoarthritis ? Complicating care pain meds as needed 8. DVT prophylaxis ? SC Lovenox Time spent in the patient's overall evaluation,decision-making process, review of diagnostic data, adjustment of management, discussion with other providers, nursing nursing and ancillary staff involved in patient's care documentation, 35 Minutes Allergies/Procedures Done in Hospital Allergies iodine Allergy (Verified 11/16/23 19:54) Swelling Penicillins Adverse Reaction (Mild, Verified 11/16/23 19:54) PT UNSURE OF REACTION Type of Care/Length of Stay Estimated LOS: Convalescent Care Less Than 30 days Type of Care Needed: Skilled Rehab Potential: Good Prognosis: Good Additional Orders/Day of Discharge Day of Discharge: 11/20/23 Dietary and Speech Recommendations Dietitian Recommendations/Changes: RD will adjust diet to 2000CCD/Sodium restricted diet to manage medical conditions. RD will remove food allergies as they are not true food allergies. Will add lactose intolerance to diet order. Continue 120mL Glucerna TID with medpass to provide supplemental protein for wound healing. Discharge Plan Admission Admit Date/Time: 11/17/23 00:31 Attending Provider: Scott Weinberg Primary Care Provider: Demetris Fuentes Consulting Providers: Mode Verdugo; Demetris Sullivan Discharge Orders/Prescriptions Prescriptions: New acetaminophen 325 mg Tablet 650 mg PO Q6H PRN PRN (Reason: Pain 1-10 Or Fever >100.7) Qty: 0 0RF insulin lispro [Humalog KwikPen Insulin] 100 unit/mL Insulin Pen See Protocol subcut TIDAC Qty: 0 0RF Protocol: 3. Sliding Scale Insulin Med Dosing Condition: 150-189 mg/dl = 1 unit Condition: 190-229 mg/dl = 2 units Condition: 230-269 mg/dl = 3 units Condition: 270-309 mg/dl = 4 units Condition: 310-349 mg/dl = 5 units Condition: 350-399 mg/dl = 6 units Condition: 400-449 mg/dl = 7 units Condition: Greater than 449 call physician Protocol Text: - Use for Total Daily Dose of Insulin 37-55 units - Obsese, infected, or steroid patients MEDIUM DOSING ALGORITHIM Glucerna 1.2 Jai 0.06-1.2 gram-kcal/mL Liquid 120 ml PO TIDCM Qty: 0 0RF oxycodone 5 mg Tablet 2.5 - 5 mg PO Q4H PRN PRN (Reason: Pain Score 4-10) 1 Days Qty: 1 0RF Continued atorvastatin 40 MG tablet 40 mg PO QHS aspirin 325 MG tablet 325 mg PO DAILY@0800 metformin 850 MG tablet 850 mg PO BIDCM atenolol 25 MG tablet 25 mg PO QHS levothyroxine 75 MCG tablet 75 mcg PO DAILY nitroglycerin 0.4 MG tablet 0.4 mg sublingual Q5M PRN (Reason: Chest Pain) insulin lispro [Humalog KwikPen Insulin] 100 unit/mL Insulin Pen 9 unit SUBCUT TID insulin glargine-yfgn 100 unit/mL (3 mL) insulin pen 27 unit subcut QHS omega 7-gxq-hsd-fish oil [Fish Oil] 1,200 (144-216) mg capsule 1 cap PO BID gabapentin 300 mg capsule 300 mg PO TID losartan 100 mg tablet 100 mg PO DAILY glucosamine-chondroitin [Osteo Bi-Flex] 250-200 mg tablet 2 tab PO TID Rx Instructions: give after food/meal Discontinued etodolac 400 mg tablet 400 mg PO BID hydrochlorothiazide 12.5 mg capsule 12.5 mg PO DAILY furosemide 20 mg tablet 40 mg PO DAILY Referrals / Follow Up: Demetris Fuentes MD [Primary Care Provider] - Disposition Disposition (needs filled in before D/C Order can be placed): [facility]
--- NOTE | 2023-11-20 10:50 | DS.PCM_ITS ---
Providers Date of Admission: 11/17/23 Date of Discharge: 11/20/23 Primary Care Physician: Dr. Demetris Fuentes MD Consultations 11/17/23 01:05 Consult: Onc/Wound/eviscerator Routine Comment: Reason For Visit: KELVIN, DEBILITY Diagnosis Discharge Diagnosis (1) Debility: Status: Acute Code(s): R53.81 - Other malaise Plan Patient is an 82-year-old gentleman who apparently lives alone presented with progressive generalized weakness due to severe osteoarthritis 1. Physical deconditioning - Requested for PT OT eval and social sciences department chair to assist with discharge planning 2. Diabetes mellitus type II -patient's oral hypoglycemics held. Placed on long acting insulin, Accu-Cheks a.c. and at bedtime and covered with sliding scale insulin 3. Hypothyroidism - Patient is on levothyroxine home dose continued 4. Acute kidney injury ? Baseline creatinine 1.29 creatinine on admission was 1.87 Home meds adjusted with significant improvement in creatinine down to 1.21 5. Essential hypertension ? Patient antihypertensives adjusted due to his impaired kidney function. HCTZ and losartan discontinued 6. Diabetic polyneuropathy ? Patient is on gabapentin 7. Generalized osteoarthritis ? Complicating care pain meds as needed 8. DVT prophylaxis ? SC Lovenox Time spent in the patient's overall evaluation,decision-making process, review of diagnostic data, adjustment of management, discussion with other providers, nursing nursing and ancillary staff involved in patient's care documentation, 35 Minutes Medications at Discharge Home Medications aspirin 325 mg tablet 325 mg PO DAILY@0800 HEALTH MAINTENANCE 08/20/16 atenolol 25 mg tablet 25 mg PO QHS BP 08/20/16 atorvastatin 40 mg tablet 40 mg PO QHS CHOLESTEROL 08/20/16 levothyroxine 75 mcg tablet 75 mcg PO DAILY THYROID 08/20/16 metformin 850 mg tablet 850 mg PO BIDCM DM 08/20/16 nitroglycerin 0.4 mg sublingual tablet 0.4 mg sublingual Q5M PRN Chest Pain 08/20/16 insulin glargine-yfgn 100 unit/mL (3 mL) subcutaneous pen 27 unit subcut QHS 12/19/22 insulin lispro 100 unit/mL subcutaneous pen (Humalog KwikPen (U-100) Insulin) 9 unit subcut TID 12/19/22 gabapentin 300 mg capsule 300 mg PO TID 11/16/23 glucosamine-chondroitin 250 mg-200 mg tablet (Osteo Bi-Flex) 2 tab PO TID 11/16/23 losartan 100 mg tablet 100 mg PO DAILY 11/16/23 omega 5-amm-acu-fish oil 1,200 mg (144 mg-216 mg) capsule (Fish Oil) 1 cap PO BID 11/16/23 acetaminophen 325 mg tablet 650 mg (2 x 325 mg) PO Q6H PRN PRN Pain 1-10 Or Fever >100.7 #0 tabs 11/20/23 insulin lispro 100 unit/mL subcutaneous pen (Humalog KwikPen (U-100) Insulin) See Protocol subcut TIDAC #0 mL 11/20/23 nutrition tx glu intol,lac-free,soy-fiber 0.06 gram-1.2 kcal/mL liquid (Glucerna 1.2 Jai) 120 ml PO TIDCM #0 mL 11/20/23 oxycodone 5 mg tablet 2.5 - 5 mg (0.5 - 1 x 5 mg) PO Q4H PRN PRN Pain Score 4-10 1 day #1 TAB 11/20/23 Physical Exam Narrative GENERAL: cooperative HEENT: Atraumatic; normocephalic EYES; Anicteric, Normal Conjunctiva NECK; supple, normal thyroid, RESPIRATORY: Diminished to auscultation CARDIOVASCULAR: Regular S1 S2, GI: soft, normoactive bowel sounds, : No Renal angle tenderness; EXTREMITIES: No edema, no clubbing, MUSCULOSKELETAL: no muscle wasting NEURO: Awake; no lateralizing signs. SKIN: No Rash PSYCH; Flat affect Weight / BMI Weight Weight: 110.2 kg Body Mass Index (BMI) 38.0 ABG / Lab / Microbiology Data 11/17/23 03:43 11/20/23 06:36 Laboratory: Laboratory Results - last 24 hr 11/19/23 11:36: POC Glucose 218 H 11/19/23 16:22: POC Glucose 205 H 11/19/23 23:07: POC Glucose 201 H 11/20/23 06:36: Sodium 139, Potassium 4.2, Chloride 110 H, Carbon Dioxide 24.0, Anion Gap 5, BUN 31 H, Creatinine 1.21, Estim Creat Clear Calc 54.79, Est GFR (MDRD) Af Amer 74, Est GFR (MDRD) Non-Af 61, BUN/Creatinine Ratio 25.6 H, G lucose 138 H, Calcium 9.4 Microbiology: Microbiology 11/16/23 23:30 Stool Stool Occult Blood ([facility]) - Final 11/16/23 20:33 Mucosa - Nose SARS-CoV-2, Influenza & RSV (PCR) - Final D/C Instructions Discharge Diet: 1800 Calorie Control Diet Discharge Activity: Return to Normal Activity Call your doctor if you observe: Fever of 101 or Higher, Shortness of breath, Fainting spells and Chest pain Meaningful Use Info Meaningful Use Meaningful Use Diagnoses (Choose all that apply): None applicable Ischemic Stroke Statin Dosing Therapy Reference: STATIN DOSE THERAPY REFERENCE: * Patients > 75 years receive moderate or high dose statin therapy. * Patients 75 years or YOUNGER should receive HIGH intensity statin dose unless contraindicated. You will be required to document reason for non-treatment if statin daily dose does not meet guidelines. HIGH DOSE STATIN THERAPY DAILY Atorvastatin > than or = to 40 mg Rosuvastatin > than or = to 20 mg Amlodipine + Atorvastatin > than or = to 2.5/40 mg Ezetimibe + Simvastatin 10/80 mg Simvastatin 80mg Discharge Plan Admission Admit Date/Time: 11/17/23 00:31 Attending Provider: Scott Weinberg Primary Care Provider: Demetris Fuentes Consulting Providers: Mode Verdugo; Demetris Sullivan Discharge Orders/Prescriptions Prescriptions: New acetaminophen 325 mg Tablet 650 mg PO Q6H PRN PRN (Reason: Pain 1-10 Or Fever >100.7) Qty: 0 0RF insulin lispro [Humalog KwikPen Insulin] 100 unit/mL Insulin Pen See Protocol subcut TIDAC Qty: 0 0RF Protocol: 3. Sliding Scale Insulin Med Dosing Condition: 150-189 mg/dl = 1 unit Condition: 190-229 mg/dl = 2 units Condition: 230-269 mg/dl = 3 units Condition: 270-309 mg/dl = 4 units Condition: 310-349 mg/dl = 5 units Condition: 350-399 mg/dl = 6 units Condition: 400-449 mg/dl = 7 units Condition: Greater than 449 call physician Protocol Text: - Use for Total Daily Dose of Insulin 37-55 units - Obsese, infected, or steroid patients MEDIUM DOSING ALGORITHIM Glucerna 1.2 Jai 0.06-1.2 gram-kcal/mL Liquid 120 ml PO TIDCM Qty: 0 0RF oxycodone 5 mg Tablet 2.5 - 5 mg PO Q4H PRN PRN (Reason: Pain Score 4-10) 1 Days Qty: 1 0RF Continued atorvastatin 40 MG tablet 40 mg PO QHS aspirin 325 MG tablet 325 mg PO DAILY@0800 metformin 850 MG tablet 850 mg PO BIDCM atenolol 25 MG tablet 25 mg PO QHS levothyroxine 75 MCG tablet 75 mcg PO DAILY nitroglycerin 0.4 MG tablet 0.4 mg sublingual Q5M PRN (Reason: Chest Pain) insulin lispro [Humalog KwikPen Insulin] 100 unit/mL Insulin Pen 9 unit SUBCUT TID insulin glargine-yfgn 100 unit/mL (3 mL) insulin pen 27 unit subcut QHS omega 2-gjq-lgj-fish oil [Fish Oil] 1,200 (144-216) mg capsule 1 cap PO BID gabapentin 300 mg capsule 300 mg PO TID losartan 100 mg tablet 100 mg PO DAILY glucosamine-chondroitin [Osteo Bi-Flex] 250-200 mg tablet 2 tab PO TID Rx Instructions: give after food/meal Discontinued etodolac 400 mg tablet 400 mg PO BID hydrochlorothiazide 12.5 mg capsule 12.5 mg PO DAILY furosemide 20 mg tablet 40 mg PO DAILY Referrals / Follow Up: Demetris Fuentes MD [Primary Care Provider] - Disposition Disposition (needs filled in before D/C Order can be placed): [facility] Charges/Coding Visit Charges Inpatient E&M: 60429 Disch Hosp
--- NOTE | 2023-11-20 11:09 | PHA.DC.MR.R ---
Pharmacy MS Med Reconciliation Pharmacy Service has performed discharge medication reconciliation for this patient. The patient's discharge medication list was reviewed for discrepancies and discrepancies were resolved. Medications at Discharge Home Medications aspirin 325 mg tablet 325 mg PO DAILY@0800 HEALTH MAINTENANCE 08/20/16 atenolol 25 mg tablet 25 mg PO QHS BP 08/20/16 atorvastatin 40 mg tablet 40 mg PO QHS CHOLESTEROL 08/20/16 levothyroxine 75 mcg tablet 75 mcg PO DAILY THYROID 08/20/16 metformin 850 mg tablet 850 mg PO BIDCM DM 08/20/16 nitroglycerin 0.4 mg sublingual tablet 0.4 mg sublingual Q5M PRN Chest Pain 08/20/16 insulin glargine-yfgn 100 unit/mL (3 mL) subcutaneous pen 27 unit subcut QHS 12/19/22 insulin lispro 100 unit/mL subcutaneous pen (Humalog KwikPen (U-100) Insulin) 9 unit subcut TID 12/19/22 gabapentin 300 mg capsule 300 mg PO TID 11/16/23 glucosamine-chondroitin 250 mg-200 mg tablet (Osteo Bi-Flex) 2 tab PO TID 11/16/23 losartan 100 mg tablet 100 mg PO DAILY 11/16/23 omega 6-zyy-psz-fish oil 1,200 mg (144 mg-216 mg) capsule (Fish Oil) 1 cap PO BID 11/16/23 acetaminophen 325 mg tablet 650 mg (2 x 325 mg) PO Q6H PRN PRN Pain 1-10 Or Fever >100.7 #0 tabs 11/20/23 insulin lispro 100 unit/mL subcutaneous pen (Humalog KwikPen (U-100) Insulin) See Protocol subcut TIDAC #0 mL 11/20/23 nutrition tx glu intol,lac-free,soy-fiber 0.06 gram-1.2 kcal/mL liquid (Glucerna 1.2 Jai) 120 ml PO TIDCM #0 mL 11/20/23 oxycodone 5 mg tablet 2.5 - 5 mg (0.5 - 1 x 5 mg) PO Q4H PRN PRN Pain Score 4-10 1 day #1 TAB 11/20/23
--- NOTE | 2023-11-20 11:17 | CASEMGMT ---
Social Work Pt is discharged to TCU today. SW faxed all discharge paperwork to TCU, will let RN know to call to see when pt can go over. No further needs, pt to TCU today, skilled. JIHAN Diego
[2023-11-20 11:36] LABS: Bedside Glucose 170 mg/dL (74-106)
[2023-11-20] MEDS: Insulin Lispro 100 UNIT/ML INSULN.PEN SC (12:30)
--- NOTE | 2023-11-20 15:27 | CHAPLAIN ---
Type of Pastoral Visit ___ Initial Visit _x__ Follow-up Visit ___ On-call Visit ___ General Patient Visit ___ Spiritual Assessment ___ Family Conference ___ Bereavement ___ Rapid Response ___ Code Blue ___ Other (describe below) Pastoral Care Referral From _x__ Patient ___ Family ___ Nurse ___ Physician ___ Operator Supply ___ Clinical Psychiatrist ___ Other (describe below) Sacrament/Intervention _x__ Active listening ___ Anointing ___ Zoroastrianism ___ Bereavement ___ Communion ___ Ann exploration ___ ___ Life review ___ Prayer ___ Reconciliation ___ Sacrament of Sick _x__ Supportive presence ___ Wedding ___ Other (describe below) Pastoral Comments
[2023-11-21 07:30] LABS: Bedside Glucose 182 mg/dL (74-106)
== END 2023-11-20 14:48 | DRG 554 ==
LOC: ED 11-17 00:28 → MS3 11-17 00:57
PROVIDERS: Internal Medicine; Physician Assistant; Emergency Provider Emergency Medicine; PCP Family Medicine; Visit Provider Internal Medicine
DX: M17.0 Bilateral primary osteoarthritis of knee (principal); N17.9 Acute kidney failure, unspecified; D63.1 Anemia in chronic kidney disease; E11.22 Type 2 diabetes mellitus with diabetic chronic kidney disease; E11.42 Type 2 diabetes mellitus with diabetic polyneuropathy; N18.31 Chronic kidney disease, stage 3a; Z79.4 Long term (current) use of insulin; E03.9 Hypothyroidism, unspecified; I12.9 Hypertensive chronic kidney disease with stage 1 through stage 4 chronic kidney disease, or unspecified chronic kidney disease; E78.00 Pure hypercholesterolemia, unspecified; R53.81 Other malaise; X58.XXXA Exposure to other specified factors, initial encounter; Z66 Do not resuscitate; Z99.3 Dependence on wheelchair; Z79.82 Long term (current) use of aspirin; Z79.84 Long term (current) use of oral hypoglycemic drugs; Z79.899 Other long term (current) drug therapy; Z86.73 Personal history of transient ischemic attack (TIA), and cerebral infarction without residual deficits
CPT/HCPCS: 36415; 71045; 80048; 81001; 82274; 82962; 83036; 83880; 84443; 84484; 85025; 87631; 93005; 97110; 97162; 97166; 97535; 97802; 99285; J7030; J7040; P9612; A4216

== ENCOUNTER 2023-11-20 14:50 | Inpatient (IN) | payer MEDICARE, OTHER, SELFPAY ==
[2023-11-20 15:25] VITALS: BP 136/47; PULSE 71; RESP 16; TEMP 36.8; O2SAT 96
[2023-11-20 16:00] VITALS: BP 136/47; PULSE 71; RESP 16; TEMP 36.8; O2SAT 96; BMI 38.8
[2023-11-20] MEDS: Insulin Lispro 100 UNIT/ML INSULN.PEN 9 UNIT SC (17:39)
[2023-11-20] MEDS: Insulin Lispro 100 UNIT/ML INSULN.PEN SC (17:40)
[2023-11-20] MEDS: Glucerna Shake 120 ML LIQUID PO (17:40)
[2023-11-20 18:15] VITALS: PULSE 62; RESP 18; O2SAT 97
[2023-11-20] MEDS: Acetaminophen 325 MG Tablet 650 MG PO (19:43)
--- NOTE | 2023-11-20 21:24 | HP.PCM_ITS ---
HPI - General General Date of Admission: 11/20/23 Date of Service: 11/20/23 Chief Complaint: Here for rehabilitation. HPI Narrative 11/16/2023 PHILLIP ANGEL, is a 82 Male who presents to [facility] ED with weakness. Lives alone, uses wheelchair to get around at home, transfers independently. Legs tangled in blanket, took 20 minutes to untangle and get OOB. Weak, required more assistance. Unable to get OOB after nap, 911 called. WBC 9.2, Hemoglobin 11.9, BUN 67, Creatinine 1.87 IV fluids, Troponin 64, BNP 47.7, Chest X-ray negative. covid/flu/rsv negative. 11/17/2023 Admit [facility]. Hold Furosemide, Hold HCTZ, Hold Losartan, give IV fluids for KELVIN. PT/OT for debility. Wound nurse fo venous stasis ulcers of legs. 11/17/2023 Creatinine improved to 1.45. PT/OT for severe OA bilateral knees. 11/18/2023 PT/OT TCU. Blood pressure controlled. 11/19/2023 Slept well last night. PT/OT TCU. 11/20/2023 Lives alone, severe osteoarthritis of knees. PT/OT for TCU. 11/20/2023 Admit to TCU with debility, here for rehabilitation, strengthening, pr ior to discharge home alone. [facility] Medical History (Updated 11/20/23 @ 21:[address] Sam Black MD) Lactose intolerance Debility Bilateral edema of lower extremity Osteoarthritis Stroke/cerebrovascular accident Hypothyroid High cholesterol Diabetes Hypertension Home Medications ?Medication ?Instructions ?Recorded ?Last Taken ?Type aspirin 325 mg tablet 325 mg PO DAILY@0800 HEALTH 08/20/16 11/20/23 History MAINTENANCE atenolol 25 mg tablet 25 mg PO QHS BP 08/20/16 11/19/23 22:55 History atorvastatin 40 mg tablet 40 mg PO QHS CHOLESTEROL 08/20/16 11/19/23 22:55 History levothyroxine 75 mcg tablet 75 mcg PO DAILY THYROID 08/20/16 11/20/23 05:00 History metformin 850 mg tablet 850 mg PO BIDCM DM 08/20/16 07/06/22 History nitroglycerin 0.4 mg sublingual 0.4 mg sublingual Q5M PRN Chest 08/20/16 Unknown History tablet Pain insulin glargine-yfgn 100 unit/mL 27 unit subcut QHS Diabetes 12/19/22 11/19/23 23:25 History (3 mL) subcutaneous pen insulin lispro 100 unit/mL 9 unit subcut TID Diabetes 12/19/22 11/20/23 History subcutaneous pen (Humalog KwikPen (U-100) Insulin) gabapentin 300 mg capsule 300 mg PO TID Nerve Pain 11/16/23 Unknown History glucosamine-chondroitin 250 mg-200 2 tab PO TID Supplement 11/16/23 Unknown History mg tablet (Osteo Bi-Flex) losartan 100 mg tablet 100 mg PO DAILY BP 11/16/23 11/20/23 08:10 History omega 4-ujy-jtq-fish oil 1,200 mg 1 cap PO BID Supplement 11/16/23 11/20/23 History (144 mg-216 mg) capsule (Fish Oil) acetaminophen 325 mg tablet 650 mg (2 x 325 mg) PO Q6H PRN PRN 11/20/23 11/20/23 05:00 Rx Pain 1-10 Or Fever >100.7 #0 tabs insulin lispro 100 unit/mL See Protocol subcut TIDAC Diabetes 11/20/23 11/20/23 Rx subcutaneous pen (Humalog KwikPen #0 mL (U-100) Insulin) nutrition tx glu 120 ml PO TIDCM Supplement #0 mL 11/20/23 11/20/23 Rx intol,lac-free,soy-fiber 0.06 gram-1.2 kcal/mL liquid (Glucerna 1.2 Jai) oxycodone 5 mg tablet 2.5 - 5 mg (0.5 - 1 x 5 mg) PO Q4H 11/20/23 11/19/23 Rx PRN PRN Pain Score 4-10 1 day #1 TAB Allergy/AdvReac Type Severity Reaction Status Date / Time iodine Allergy Swelling Verified 11/16/23 19:54 Penicillins AdvReac Mild PT UNSURE Verified 11/16/23 19:54 OF REACTION Surgical History History of tonsillectomy History of appendectomy History of cholecystectomy Social History household members: none Smoking Status: Never smoker alcohol intake: never substance use type: does not use ROS Constitutional Constitutional: Reports fatigue and weakness; Denies chills, fever(s) or weight gain ENT HEENT: Denies headache(s), nasal congestion or nasal discharge Cardiovascular Cardiovascular: Denies chest pain or palpitations Respiratory/Chest Respiratory/Chest: Denies cough, excessive phlegm production or shortness of breath with exertion Gastrointestinal Gastrointestinal: Denies abdominal pain, nausea or vomiting Genitourinary Genitourinary: Denies dysuria Musculoskeletal Musculoskeletal: Denies joint pain or joint swelling Integumentary Integumentary: Denies rash or wounds Neurologic Neurologic: Denies focal weakness, numbness or tingling Psychiatric Psychiatric: Denies anxiety, auditory hallucinations, depression, homicidal ideation or suicidal ideation Vital Signs Vital Signs Vital Signs: 11/20/23 15:25 11/20/23 16:00 11/20/23 18:15 Temperature 98.2 F 98.2 F Temperature Source Temporal Temporal Pulse Rate 71 71 62 Pulse Rhythm Regular Pulse Strength Normal (2+) Respiratory Rate 16 16 18 Respiratory Effort Normal Non-Labored Respiratory Depth Normal Respiratory Pattern Normal Blood Pressure 136/47 H 136/47 H Blood Pressure Mean 76 76 Blood Pressure Source Monitor Monitor Blood Pressure Position Semi-Fowlers Sitting Blood Pressure Location Right Arm Right Arm Pulse Ox 96 96 97 Oxygen Delivery Method Room Air Room Air Room Air Weight Weight: 110.8 kg Body Mass Index (BMI) 38.8 Physical Exam Const alert General Appearance: cooperative HEENT normocephalic Eyes PERRL and EOMs intact bilaterally Neck supple, no JVD and no carotid bruits Resp normal respiratory effort, normal air movement and clear to auscultation bilaterally Cardio regular rate and regular rhythm GI normal to inspection, nondistended, normoactive bowel sounds, non-tender and non-distended Extremity normal capillary refill General Extremity: Negative for edema Skin no rashes or lesions noted General Skin Exam: no breakdown Psych affect normal Appearance: appropriate Assessment & Plan Assessment/Plan (1) Debility: (2) Weakness: (3) Acute kidney injury: (4) Venous stasis dermatitis: (5) Osteoarthritis of knees, bilateral: (6) Left cervical radiculopathy: (7) Stroke/cerebrovascular accident: (8) Hypertension: (9) Hyperlipidemia: (10) Type 2 diabetes mellitus with hyperglycemia: (11) Hypothyroidism: (12) Coronary artery disease: PLAN: Plan 82 year old male with below past medical history hospitalized for weakness 2/2 acute kidney injury, complicated by severe osteoarthritis bilateral knees, venous stasis dermatitis of legs, admitted to TCU with debility, here for rehabilitation, strengthening, prior to discharge home alone. * Debility - PT/OT. * Pain - Tylenol 1000mg q6 prn pain (1-3), Oxycodone 2.5mg - 5mg q4h prn pain (4-10). * Bowel - senna/colace 2 tablets bid, Dulcolax 10mg pr daily prn. * Adult immunization - Administer Pneumonia vaccine, covid vaccine, Flu vaccine as appropriate. * DVT prophylaxis - Monitor. * Coronary artery disease - Atenolol 25mg qhs, Losartan 100mg daily, Aspirin 325mg daily, NTG 0.4mg sl q5m prn. * Hyperlipidemia - Atorvastatin 40mg qhs, Arnold 3 1gm bid. * Neuropathic pain - Gabapentin 300mg tid. * Nutrition - Glucerna Shake 120ml tidcm. * Diabetes Mellitus II - Glargine 25 units qhs, Lispro 9 untis tidcm. * Hypothyroidism - Levothyroxine 75mcg daily.
[2023-11-20 21:36] LABS: Bedside Glucose 191 mg/dL (74-106)
[2023-11-20] MEDS: Gabapentin 300 MG Capsule PO (21:53)
[2023-11-20] MEDS: Senna/Docusate Sodium 1 Tablet 2 TABLET PO (21:54)
[2023-11-20] MEDS: Omega-3 Acid Ethyl Esters 1 GM Capsule PO (21:56)
[2023-11-20] MEDS: Atorvastatin Calcium 40 MG Tablet PO (21:56)
[2023-11-20] MEDS: Insulin Glargine-YFGN 100 UNIT/ML Pen 27 UNIT SC (21:57)
[2023-11-20] MEDS: Atenolol 25 MG Tablet PO (21:58)
[2023-11-20 22:00] VITALS: BP 147/61; PULSE 61; RESP 16
[2023-11-20] MEDS: oxyCODONE 5 MG Tablet PO (22:06)
[2023-11-21] MEDS: Levothyroxine 75 MCG Tablet PO (06:03)
[2023-11-21] MEDS: Gabapentin 300 MG Capsule PO ×3 (06:03→22:07)
[2023-11-21] MEDS: 0.9% Saline Lock 10 ML Syringe IV ×3 (06:03→22:07)
[2023-11-21 06:29] LABS: Bedside Glucose 197 mg/dL (74-106)
[2023-11-21 06:51] LABS: Absolute Lymphocyte Count 1.93 X10^3/uL (0.83-4.51); Basophil# 0.04 X10^3/uL; Basophil% 0.5 % (0-1); Eosinophil# 0.27 X10^3/uL; Eosinophils% 3.3 % (0-5); Hematocrit 36.1 % (40-54); Hemoglobin 11.8 g/dL (13.0-16.5); Lymphocyte # 1.93 X10^3/ul (0.83-4.51); Lymphocyte % 23.3 % (19-41); Mean Corp Hgb Conc 32.7 g/dL (32-36); Mean Corpuscular Hgb 28.2 pg (27.0-32.0); Mean Corpuscular Volume 86.4 fL (80-94); Mean Platelet Vol. 10.7 fl (6.2-12.0); Monocyte# 0.92 X10^3/uL; Monocyte% 11.1 % (0-10); NRBC Flagged by Analyzer 0 % (0-5); Neutrophil # 5.04 X10^3/uL (2.7-7.7); Platelet Count 220 K/mm3 (150-450); RBC Distribution Width CV 13.5 % (11.6-14.6); RBC Distribution Width SD 42.2 fl (35.1-43.9); Red Blood Count 4.18 M/mm3 (4.6-6.2); White Blood Count 8.3 K/mm3 (4.4-11.0)
--- NOTE | 2023-11-21 07:25 | NURSING ---
patient requests med to promote sleep, written communication left for Dr. Black
[2023-11-21 07:38] LABS: Anion Gap 7 (5-15); BUN 28 mg/dL (7-18); BUN/Creat Ratio 24.6 RATIO (10-20); Chloride 108 mmol/L (98-107); Creatinine, Serum 1.14 mg/dL (0.70-1.30); EST Glomerular Filtration Rate 65 mL/min (>60); Est Glom Filt Rate - Afr Amer 79 mL/min (>60); Estimated Creatinine Clearance 57.36 ml/min; Glucose 215 mg/dL (74-106); Potassium 4.3 mmol/L (3.5-5.1); Sodium Level 138 mmol/L (136-145)
[2023-11-21] MEDS: Insulin Lispro 100 UNIT/ML INSULN.PEN 9 UNIT SC ×3 (08:04→17:53)
[2023-11-21] MEDS: Losartan Potassium 100 MG Tablet PO (08:05)
[2023-11-21] MEDS: Aspirin 325 MG Tablet PO (08:05)
[2023-11-21] MEDS: Insulin Lispro 100 UNIT/ML INSULN.PEN SC ×3 (08:05→17:53)
[2023-11-21] MEDS: Glucerna Shake 120 ML LIQUID PO ×3 (08:05→17:52)
[2023-11-21] MEDS: Omega-3 Acid Ethyl Esters 1 GM Capsule PO ×2 (08:06→22:12)
[2023-11-21] MEDS: Senna/Docusate Sodium 1 Tablet 2 TABLET PO ×2 (08:06→22:12)
--- NOTE | 2023-11-21 09:42 | PHA.CONS_ITS ---
Documented by User: Guadalupe Ferguson 11/21/23 10:05 TCU RX Drug Regimen Review Subjective/Objective Subjective/Objective: Subjective: TCU Admission. 82 YOM presented to the ER with weakness. Hospitalized for weakness 2/2 acute kidney injury, complicated by severe osteoarthritis bilateral knees, venous stasis dermatitis of legs. Admitted to TCU with debility for strengthening and rehabilitation. Objective: Allergies iodine Allergy (Verified 11/16/23 19:54) Swelling Penicillins Adverse Reaction (Mild, Verified 11/16/23 19:54) PT UNSURE OF REACTION Current Medications Generic Name Dose Route Start Last Admin Trade Name Freq PRN Reason Stop Dose Admin Acetaminophen 1,000 mg 11/20/23 21:39 Acetaminophen 500 Mg Tablet PO Q6H PRN PRN Pain Score 1-10 Aspirin 325 mg 11/21/23 08:00 11/21/23 08:05 Aspirin 325 Mg Tablet PO 325 mg DAILY@0800 [facility] Administration Atenolol 25 mg 11/20/23 22:00 11/20/23 21:58 Atenolol 25 Mg Tablet PO 25 mg QHS IMAN Administration Protocol Atorvastatin Calcium 40 mg 11/20/23 22:00 11/20/23 21:56 Atorvastatin Calcium 40 Mg Tablet PO 40 mg QHS IMAN Administration Bisacodyl 10 mg 11/20/23 21:38 Bisacodyl 10 Mg Suppository RC DAILY PRN Constipation Gabapentin 300 mg 11/20/23 22:00 11/21/23 06:03 Gabapentin 300 Mg Capsule PO 300 mg TID IMAN Administration Insulin Glargine 27 unit 11/20/23 22:00 11/20/23 21:57 Insulin Glargine-Yfgn 100 Unit/Ml Pen SC 27 unit QHS IMAN Administration Insulin Human Lispro 9 unit 11/20/23 17:45 11/21/23 08:04 Insulin Lispro 100 Unit/Ml Insuln.Pen SC 9 u TIDCM IMAN Administration Insulin Human Lispro 0 unit 11/20/23 16:45 11/21/23 08:05 Insulin Lispro 100 Unit/Ml Insuln.Pen SC 2 u TIDAC [facility] Administration Protocol Levothyroxine Sodium 75 mcg 11/21/23 06:00 11/21/23 06:03 Levothyroxine 75 Mcg Tablet PO 75 mcg DAILY@0600 [facility] Administration Losartan Potassium 100 mg 11/21/23 10:00 11/21/23 08:05 Losartan Potassium 100 Mg Tablet PO 100 mg DAILY IMAN Administration Protocol Melatonin 10 mg 11/21/23 22:00 Melatonin 10 Mg Tablet PO QHS [facility] Nitroglycerin 0.4 mg 11/20/23 15:40 Nitroglycerin (Inpatient Use) 0.4 Mg Tab.Subl SL Q5M PRN CARDIAC/CHEST PAIN Nutritional Formula (Lactose Free) 120 ml 11/20/23 17:45 11/21/23 08:05 Glucerna Shake 120 Ml Liquid PO 120 ml TIDCM IMAN Administration Hgewe-0-Dsue Ethyl Esters 1 gm 11/20/23 22:00 11/21/23 08:06 [place]-3 Acid Ethyl Esters 1 Gm Capsule PO 1 gm BID IMAN Administration Oxycodone HCl 2.5 - 5 mg 11/20/23 15:30 11/20/23 22:06 Oxycodone 5 Mg Tablet PO 5 mg Q4H PRN PRN Administration Pain Score 4-10 Senna/Docusate Sodium 2 tablet 11/20/23 22:00 11/21/23 08:06 Senna/Docusate Sodium 1 Tablet PO 2 tablet BID IMAN Administration Sodium Chloride 10 - 40 ml 11/20/23 16:14 11/21/23 06:03 0.9% Saline Lock 10 Ml Syringe IV 10 ml UD PRN Administration SALINE FLUSH Tuberculin PPD 0.1 ml 11/28/23 10:00 Tuberculin,Purif.Prot.Deriv. 50 Tu/Ml Vial ID 11/28/23 10:01 X1 ONE Tuberculin PPD 0.1 ml 11/21/23 10:00 Tuberculin,Purif.Prot.Deriv. 50 Tu/Ml Vial ID 11/21/23 10:01 X1 ONE Problem List Coronary artery disease (Acute) Type 2 diabetes mellitus with hyperglycemia (Acute) Stroke/cerebrovascular accident (Acute) Osteoarthritis of knees, bilateral (Acute) Venous stasis dermatitis (Acute) Weakness (Acute) Debility (Acute) Acute kidney injury (Acute) Hypothyroidism (Acute) Hyperlipidemia (Acute) Hypertension (Chronic) Left cervical radiculopathy (Acute) Vital Signs Temp Pulse Resp BP Pulse Ox O2 Del Method 98.2 F 61 16 147/61 H 97 Room Air 11/20/23 16:00 11/20/23 22:00 11/20/23 22:00 11/20/23 22:00 11/20/23 18:15 11/20/23 18:15 Oxygen Delivery Method Room Air Weight: 110.8 kg Body Mass Index (BMI) 38.8 Sodium 138 mmol/L (136-145) 11/21/23 06:31 Potassium 4.3 mmol/L (3.5-5.1) 11/21/23 06:31 Chloride 108 mmol/L (98-107) H 11/21/23 06:31 Carbon Dioxide 23.0 mmol/L (21.0-32.0) 11/21/23 06:31 Anion Gap 7 (5-15) 11/21/23 06:31 BUN 28 mg/dL (7-18) H 11/21/23 06:31 Creatinine 1.14 mg/dL (0.70-1.30) 11/21/23 06:31 Est GFR (MDRD) Af Amer 79 mL/min (>60) 11/21/23 06:31 Est GFR (MDRD) Non-Af 65 mL/min (>60) 11/21/23 06:31 BUN/Creatinine Ratio 24.6 RATIO (10-20) H 11/21/23 06:31 Glucose 215 mg/dL (74-106) H 11/21/23 06:31 Assessment/Plan: 1. Pain: acetaminophen 1000mg PO Q6H PRN pain 1-10 and oxycodone 2.5-5mg PO Q4H PRN pain 4-10. Resident has not had any acetaminophen but had 1 dose of oxycodone for pain score of 7 in the back/hip/shoulder. Please continue to monitor for increased pain, PRN usage, constipation and respiratory depression. 2. Bowel: senna/docusate 2T PO BID and bisacodyl 10mg RC daily PRN constipation. No PRN doses given. Please continue to monitor for constipation and PRN usage. Last documented bowel movement was 11/18. 3. CAD: atenolol 25mg PO QHS, losartan 100mg PO daily, aspirin 325mg PO daily and nitroglycerin 0.4mg SL Q5M PRN chest pain. No PRN doses given. Please continue to monitor BP (last 147/61), HR (last 61), renal function, potassium (last 4.3mmol/L), chest pain, PRN usage, S/S of bleeding and hemoglobin (last 11.8g/dL). 4. Hyperlipidemia: atorvastatin 40mg PO QHS and omega 3 1gm PO BID. Please consider ordering a lipid panel as the last panel is from 07/2022. Thanks. 5. Hypothyroidism: levothyroxine 75mcg PO daily. Please continue to monitor TSH (last 11/16/23 WNL) and S/S of hypo/hyperthyroidism. 6. Diabetes mellitus II: insulin glargine 27units SC QHS, insulin lispro 9units SC TIDCM and medium sliding scale TIDCM. Please continue to monitor hemoglobin A1c (last 8.6% 11/17/23), glucose (last 215mg/dL) and S/S of hypoglycemia. 7. Sleep (per nursing note, pt requested medication to help sleep): melatonin 10mg PO QHS. Please continue to monitor for insomnia and excessive drowsiness. Assessment/Plan for indications treated with psychotropic medications: 1. Neuropathic pain: gabapentin 300mg PO TID. GDR not appropriate as this medication is being used for neuropathic pain. Please consider changing the frequency to BID (due to CrCl of 57mL/min) to prevent side effects. Thanks. Please continue to monitor for falls/fractures (BEERs medication), confusion and renal function. Medical chart and medication regimen reviewed. The following medication irregularities or issues were identified: 1. Atorvastatin 40mg PO QHS and omega 3 1gm PO BID. Please consider ordering a lipid panel as the last panel is from 07/2022. Thanks. Date Date of Note:: 11/21/23 Documented by User: Dr. Sam Black MD 11/21/23 10:14 TCU RX Drug Regimen Review Provider Comments Provider responsibility Provider Comments to Recommendations by Pharmacy: Agree
[2023-11-21 10:20] VITALS: BMI 38.8
[2023-11-21] MEDS: Tuberculin,Purif.prot.deriv. 50 TU/ML Vial 0.1 ML ID (10:43)
[2023-11-21 11:15] LABS: Bedside Glucose 254 mg/dL (74-106)
--- NOTE | 2023-11-21 13:48 | MDS.RN ---
Resident req to schedule plan of care meeting with himself only, states not to call children.
[2023-11-21 14:31] VITALS: BP 107/52; PULSE 64; RESP 16; TEMP 36.3; O2SAT 94
[2023-11-21 17:25] LABS: Bedside Glucose 181 mg/dL (74-106)
[2023-11-21 21:27] LABS: Bedside Glucose 307 mg/dL (74-106)
[2023-11-21] MEDS: Insulin Glargine-YFGN 100 UNIT/ML Pen 27 UNIT SC (22:09)
[2023-11-21 22:10] VITALS: PULSE 56; RESP 17; O2SAT 97
[2023-11-21] MEDS: Atorvastatin Calcium 40 MG Tablet PO (22:12)
[2023-11-21] MEDS: MELATONIN 10 MG TABLET PO (22:12)
[2023-11-21] MEDS: Atenolol 25 MG Tablet PO (22:13)
[2023-11-21 22:17] VITALS: BP 133/55; PULSE 56; O2SAT 97
[2023-11-21] MEDS: Acetaminophen 500 MG Tablet 1000 MG PO (23:46)
[2023-11-22] MEDS: Gabapentin 300 MG Capsule PO ×3 (05:45→21:48)
[2023-11-22] MEDS: Levothyroxine 75 MCG Tablet PO (05:45)
[2023-11-22 06:34] LABS: Bedside Glucose 192 mg/dL (74-106)
[2023-11-22 06:38] LABS: Cholesterol 110 mg/dL (200); High Density Lipoprotein 38 mg/dL; Triglycerides 105 mg/dL; Very Low Density Lipoprotein 21 mg/dL (5-40)
[2023-11-22] MEDS: Aspirin 325 MG Tablet PO (08:25)
[2023-11-22] MEDS: Omega-3 Acid Ethyl Esters 1 GM Capsule PO ×2 (08:26→21:48)
[2023-11-22] MEDS: Senna/Docusate Sodium 1 Tablet 2 TABLET PO ×2 (08:26→21:49)
[2023-11-22] MEDS: Losartan Potassium 100 MG Tablet PO (08:26)
[2023-11-22] MEDS: Insulin Lispro 100 UNIT/ML INSULN.PEN 9 UNIT SC ×3 (08:26→17:54)
[2023-11-22] MEDS: Insulin Lispro 100 UNIT/ML INSULN.PEN SC ×3 (08:27→17:54)
[2023-11-22] MEDS: Glucerna Shake 120 ML LIQUID PO ×3 (08:29→17:53)
[2023-11-22 08:35] VITALS: BP 114/52; PULSE 60; RESP 18; TEMP 36.2; O2SAT 95
[2023-11-22] MEDS: 0.9% Saline Lock 10 ML Syringe IV ×2 (10:23→21:48)
[2023-11-22 11:18] LABS: Bedside Glucose 248 mg/dL (74-106)
[2023-11-22 13:34] VITALS: PULSE 60; RESP 18; O2SAT 95
--- NOTE | 2023-11-22 15:30 | CASEMGMT ---
Social Work - Assessment note Met with patient in room, introducing to self and social work role. Patient agreeable to speak with mental health social worker and complete assessment. BIMS score a 15/15. Patient voiced no questions about length of stay or benefits; has been to TCU in the past for skilled care and treatment. Patient confirms which to be DNRCC. Patient reports son is the POC and has paperwork at home. Patient agrees to ask son to bring the paperwork in. Patient talkative throughout social work visit, and cried off and on. Patient did answer in the affirmative for past trauma, related to time in the [employer]. Reports he does not like to talk about his time in service. This documentation writer sat with patient, offered silence so as to allow patient time to process and express thoughts; which patient did share some things related to the but only to what patient was comfortable independently sharing. Much emotional support, encouragement, normalization and validation provided to patient. Psychoeducation on grief response and validating there is not a normal time to get through grief. Discussed with patient possible counseling, strongly encouraging patient for this to help process trauma related to time in the as well as grief from multiple losses since July 2022. Patient expressed much appreciation for time given in allowing time to talk about thoughts and feelings. Plan: Patient hopes to return home. 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 Counseling resources to be provided [facility] care consultation with the [facility]. SW to follow and assist for discharge planning and support as indicated. -LOLI Ávlarez
[2023-11-22 17:27] LABS: Bedside Glucose 190 mg/dL (74-106)
[2023-11-22 21:42] LABS: Bedside Glucose 239 mg/dL (74-106)
[2023-11-22] MEDS: Insulin Glargine-YFGN 100 UNIT/ML Pen 27 UNIT SC (21:46)
[2023-11-22] MEDS: MELATONIN 10 MG TABLET PO (21:48)
[2023-11-22] MEDS: Atorvastatin Calcium 40 MG Tablet PO (21:48)
[2023-11-22] MEDS: Atenolol 25 MG Tablet PO (21:49)
[2023-11-22 21:57] VITALS: BP 131/62; PULSE 57
[2023-11-22] MEDS: Acetaminophen 500 MG Tablet 1000 MG PO (23:59)
[2023-11-23] MEDS: Levothyroxine 75 MCG Tablet PO (05:37)
[2023-11-23] MEDS: Gabapentin 300 MG Capsule PO ×3 (05:37→22:52)
[2023-11-23 06:23] LABS: Bedside Glucose 217 mg/dL (74-106)
[2023-11-23] MEDS: Insulin Lispro 100 UNIT/ML INSULN.PEN 9 UNIT SC ×3 (08:19→17:43)
[2023-11-23] MEDS: Aspirin 325 MG Tablet PO (08:20)
[2023-11-23] MEDS: Omega-3 Acid Ethyl Esters 1 GM Capsule PO ×2 (08:20→22:51)
[2023-11-23] MEDS: Insulin Lispro 100 UNIT/ML INSULN.PEN SC ×3 (08:20→17:43)
[2023-11-23] MEDS: Senna/Docusate Sodium 1 Tablet 2 TABLET PO ×2 (08:20→22:51)
[2023-11-23] MEDS: Losartan Potassium 100 MG Tablet PO (08:20)
[2023-11-23] MEDS: Glucerna Shake 120 ML LIQUID PO ×3 (08:24→17:43)
[2023-11-23 08:28] VITALS: BP 136/61; PULSE 62
[2023-11-23 11:24] LABS: Bedside Glucose 244 mg/dL (74-106)
--- NOTE | 2023-11-23 14:56 | CHAPLAIN ---
Type of Pastoral Visit ___ Initial Visit _x__ Follow-up Visit ___ On-call Visit ___ General Patient Visit ___ Spiritual Assessment ___ Family Conference ___ Bereavement ___ Rapid Response ___ Code Blue ___ Other (describe below) Pastoral Care Referral From _x__ Patient ___ Family ___ Nurse ___ Physician ___ Genetic Physician ___ Mobile Security Architect ___ Other (describe below) Sacrament/Intervention _x__ Active listening ___ Anointing ___ Christian ___ Bereavement ___ Communion ___ Ann exploration ___ _x__ Life review ___ Prayer ___ Reconciliation ___ Sacrament of Sick _x__ Supportive presence ___ Wedding ___ Other (describe below) Pastoral Comments patient has been seen before in previous admissions and just last week in [facility]; pt and this escort service attendant talk about his reading enjoyment; his life without his of 62 years, his neighbors who watch for him, and memories of his service and life as a young man with ; pt admits emotional difficulty when considering his and remembers certain things about family celelbrations;
[2023-11-23 15:18] VITALS: BP 110/53; PULSE 51; RESP 16; TEMP 36.7; O2SAT 94
--- NOTE | 2023-11-23 16:10 | CASEMGMT ---
Social Work- Late Entry SW met with patient at bedside to provide resources for mental health support outpatient. Patient informed SW that he was feeling okay today. Patient informed SW of his grief after losing his Jul 2022 on prior admission to TCU. SW explored patient's feelings of comfort and discomfort being in [facility]. Patient informed SW that he was uncomfortable while in the acute setting due to memories of 's passing. SW inquired about patient's feelings being back on TCU. Patient informed SW that he feels more comfort being on TCU. Patient informed SW that he did not want to be in rehab, but acknowledged that rehabilitation is required due to his weakness and debility. Patient informed SW that he has supportive children and neighbors. Patient informed SW that he does not feel lonely during the day while others are visiting or calling, but at night he feels lonely. Patient reflected on his marriage of 58 years. Patient informed SW that his was his first and only love. Patient could benefit from grief support. SW reviewed mental health resources provided at bedside. SW will continue to follow to support discharge plans. GUSTABO Vega
[2023-11-23 16:36] LABS: Bedside Glucose 161 mg/dL (74-106)
[2023-11-23] MEDS: 0.9% Saline Lock 10 ML Syringe IV (17:48)
[2023-11-23 21:37] LABS: Bedside Glucose 257 mg/dL (74-106)
[2023-11-23] MEDS: Atorvastatin Calcium 40 MG Tablet PO (22:51)
[2023-11-23] MEDS: Atenolol 25 MG Tablet PO (22:51)
[2023-11-23] MEDS: Acetaminophen 500 MG Tablet 1000 MG PO (22:52)
[2023-11-23] MEDS: MELATONIN 10 MG TABLET PO (22:52)
[2023-11-23] MEDS: Insulin Glargine-YFGN 100 UNIT/ML Pen 27 UNIT SC (22:52)
[2023-11-23 23:30] VITALS: PULSE 60; RESP 16; O2SAT 97
[2023-11-23] MEDS: oxyCODONE 5 MG Tablet PO (23:32)
[2023-11-24] MEDS: Gabapentin 300 MG Capsule PO ×3 (05:45→21:59)
[2023-11-24] MEDS: Levothyroxine 75 MCG Tablet PO (05:45)
[2023-11-24] MEDS: 0.9% Saline Lock 10 ML Syringe IV ×2 (05:52→23:11)
[2023-11-24 06:35] LABS: Bedside Glucose 214 mg/dL (74-106)
[2023-11-24] MEDS: Senna/Docusate Sodium 1 Tablet 2 TABLET PO ×2 (08:30→22:00)
[2023-11-24] MEDS: Aspirin 325 MG Tablet PO (08:30)
[2023-11-24] MEDS: Omega-3 Acid Ethyl Esters 1 GM Capsule PO ×2 (08:30→22:00)
[2023-11-24] MEDS: Losartan Potassium 100 MG Tablet PO (08:30)
[2023-11-24] MEDS: Insulin Lispro 100 UNIT/ML INSULN.PEN 9 UNIT SC ×3 (08:31→18:43)
[2023-11-24] MEDS: Insulin Lispro 100 UNIT/ML INSULN.PEN SC ×3 (08:31→18:42)
[2023-11-24] MEDS: Glucerna Shake 120 ML LIQUID PO ×3 (08:31→18:42)
[2023-11-24] MEDS: Acetaminophen 500 MG Tablet 1000 MG PO ×2 (08:33→23:11)
--- NOTE | 2023-11-24 10:05 | MDS.RN ---
Pain interview for MDS completed.
--- NOTE | 2023-11-24 11:27 | NURSING ---
Call placed to son to give update. Left VM.
[2023-11-24 11:59] LABS: Bedside Glucose 206 mg/dL (74-106)
[2023-11-24 14:16] VITALS: BP 118/49; PULSE 57; RESP 16; TEMP 36.8; O2SAT 92
--- NOTE | 2023-11-24 15:17 | CASEMGMT ---
Social Work SW met with patient at bedside to complete MDS. Patient BIM () and PhQ-2 (00). Patient expressed feeling lonely at night. Lonely always since losing . Patient expressed for oysterman care. Patient informed SW that he has been having difficulty while toileting and ambulating. Patient informed SW that he has spoken with his son. Patient's son informed him that he would stay with the patient for a month post discharge. Patient is hopeful to progress with therapy. SW will continue to follow to provide patient with resources. GUSTABO Vega
[2023-11-24 16:54] LABS: Bedside Glucose 293 mg/dL (74-106)
[2023-11-24 21:43] LABS: Bedside Glucose 276 mg/dL (74-106)
[2023-11-24 21:57] VITALS: BP 123/50; PULSE 56
[2023-11-24] MEDS: Insulin Glargine-YFGN 100 UNIT/ML Pen 27 UNIT SC (21:58)
[2023-11-24] MEDS: Atenolol 25 MG Tablet PO (21:59)
[2023-11-24 22:00] VITALS: PULSE 56; RESP 16
[2023-11-24] MEDS: MELATONIN 10 MG TABLET PO (22:00)
[2023-11-24] MEDS: Atorvastatin Calcium 40 MG Tablet PO (22:00)
[2023-11-25] MEDS: Gabapentin 300 MG Capsule PO ×3 (05:09→21:42)
[2023-11-25] MEDS: Levothyroxine 75 MCG Tablet PO (05:09)
[2023-11-25 05:31] VITALS: RESP 17
[2023-11-25 06:36] LABS: Bedside Glucose 185 mg/dL (74-106)
[2023-11-25] MEDS: Glucerna Shake 120 ML LIQUID PO ×3 (07:43→17:37)
[2023-11-25] MEDS: Losartan Potassium 100 MG Tablet PO (07:43)
[2023-11-25] MEDS: Aspirin 325 MG Tablet PO (07:43)
[2023-11-25] MEDS: Omega-3 Acid Ethyl Esters 1 GM Capsule PO ×2 (07:44→21:34)
[2023-11-25] MEDS: Insulin Lispro 100 UNIT/ML INSULN.PEN 9 UNIT SC ×3 (07:44→17:38)
[2023-11-25] MEDS: Senna/Docusate Sodium 1 Tablet 2 TABLET PO ×2 (07:44→21:34)
[2023-11-25] MEDS: Insulin Lispro 100 UNIT/ML INSULN.PEN SC ×3 (07:44→17:38)
[2023-11-25 07:50] VITALS: BP 118/59; PULSE 62; RESP 16; TEMP 37; O2SAT 95
[2023-11-25 12:05] LABS: Bedside Glucose 182 mg/dL (74-106)
[2023-11-25 16:41] LABS: Bedside Glucose 195 mg/dL (74-106)
[2023-11-25] MEDS: Insulin Glargine-YFGN 100 UNIT/ML Pen 27 UNIT SC (21:32)
[2023-11-25] MEDS: MELATONIN 10 MG TABLET PO (21:34)
[2023-11-25] MEDS: Atorvastatin Calcium 40 MG Tablet PO (21:34)
[2023-11-25] MEDS: Atenolol 25 MG Tablet PO (21:35)
[2023-11-25 21:46] LABS: Bedside Glucose 314 mg/dL (74-106)
[2023-11-26] MEDS: oxyCODONE 5 MG Tablet PO (00:37)
[2023-11-26] MEDS: Levothyroxine 75 MCG Tablet PO (05:50)
[2023-11-26] MEDS: Gabapentin 300 MG Capsule PO ×3 (05:50→23:05)
[2023-11-26] MEDS: Acetaminophen 500 MG Tablet 1000 MG PO ×2 (05:52→23:06)
[2023-11-26 06:29] LABS: Bedside Glucose 247 mg/dL (74-106)
[2023-11-26 07:55] VITALS: BP 121/57; PULSE 67; RESP 18; TEMP 36.4; O2SAT 95
[2023-11-26] MEDS: Glucerna Shake 120 ML LIQUID PO ×3 (07:57→17:50)
[2023-11-26] MEDS: Aspirin 325 MG Tablet PO (07:58)
[2023-11-26] MEDS: Senna/Docusate Sodium 1 Tablet 2 TABLET PO ×2 (07:59→23:10)
[2023-11-26] MEDS: Omega-3 Acid Ethyl Esters 1 GM Capsule PO ×2 (07:59→23:08)
[2023-11-26] MEDS: Losartan Potassium 100 MG Tablet PO (07:59)
[2023-11-26] MEDS: Insulin Lispro 100 UNIT/ML INSULN.PEN 9 UNIT SC ×3 (08:00→17:48)
[2023-11-26] MEDS: Insulin Lispro 100 UNIT/ML INSULN.PEN SC ×3 (08:00→17:48)
[2023-11-26 12:35] LABS: Bedside Glucose 264 mg/dL (74-106)
[2023-11-26 17:19] LABS: Bedside Glucose 217 mg/dL (74-106)
[2023-11-26 21:35] LABS: Bedside Glucose 236 mg/dL (74-106)
[2023-11-26 23:00] VITALS: BP 166/62; PULSE 77; O2SAT 99
[2023-11-26] MEDS: Atorvastatin Calcium 40 MG Tablet PO (23:09)
[2023-11-26] MEDS: Atenolol 25 MG Tablet PO (23:09)
[2023-11-26] MEDS: MELATONIN 10 MG TABLET PO (23:10)
[2023-11-26] MEDS: Insulin Glargine-YFGN 100 UNIT/ML Pen 27 UNIT SC (23:11)
[2023-11-27] MEDS: Levothyroxine 75 MCG Tablet PO (05:54)
[2023-11-27] MEDS: Gabapentin 300 MG Capsule PO ×3 (05:54→21:49)
--- NOTE | 2023-11-27 05:56 | NURSING ---
Wounds to BLE without drainage. Left BLE DAVE last night when assessment completed. Placed one pillow under legs to elevate. Sherif wraps in room and to be applied later this am. Will continue to monitor.
[2023-11-27 06:24] LABS: Bedside Glucose 183 mg/dL (74-106)
[2023-11-27] MEDS: Insulin Lispro 100 UNIT/ML INSULN.PEN SC ×3 (08:38→17:59)
[2023-11-27] MEDS: Glucerna Shake 120 ML LIQUID PO ×3 (08:38→17:59)
[2023-11-27] MEDS: Senna/Docusate Sodium 1 Tablet 2 TABLET PO ×2 (08:39→21:50)
[2023-11-27] MEDS: Aspirin 325 MG Tablet PO (08:39)
[2023-11-27] MEDS: Omega-3 Acid Ethyl Esters 1 GM Capsule PO ×2 (08:39→21:50)
[2023-11-27] MEDS: Losartan Potassium 100 MG Tablet PO (08:39)
[2023-11-27] MEDS: Insulin Lispro 100 UNIT/ML INSULN.PEN 9 UNIT SC ×3 (08:39→17:59)
[2023-11-27 11:47] LABS: Bedside Glucose 171 mg/dL (74-106)
[2023-11-27 13:38] VITALS: BP 128/75; PULSE 61; RESP 18; TEMP 36.6
[2023-11-27 16:22] LABS: Bedside Glucose 172 mg/dL (74-106)
[2023-11-27 21:46] LABS: Bedside Glucose 261 mg/dL (74-106)
[2023-11-27] MEDS: MELATONIN 10 MG TABLET PO (21:50)
[2023-11-27] MEDS: Atenolol 25 MG Tablet PO (21:50)
[2023-11-27] MEDS: Atorvastatin Calcium 40 MG Tablet PO (21:50)
[2023-11-27] MEDS: Insulin Glargine-YFGN 100 UNIT/ML Pen 27 UNIT SC (21:51)
[2023-11-27 23:00] VITALS: PULSE 68; RESP 16; O2SAT 94
[2023-11-27] MEDS: Acetaminophen 500 MG Tablet 1000 MG PO (23:33)
[2023-11-28 05:28] LABS: Absolute Lymphocyte Count 2.27 X10^3/uL (0.83-4.51); Absolute Neutrophil Count 5.5 X10^3/uL (2.0-7.7); Basophil# 0.04 X10^3/uL; Basophil% 0.4 % (0-1); Eosinophil# 0.25 X10^3/uL; Eosinophils% 2.6 % (0-5); Hematocrit 36.3 % (40-54); Hemoglobin 11.4 g/dL (13.0-16.5); Lymphocyte # 2.27 X10^3/ul (0.83-4.51); Mean Corp Hgb Conc 31.4 g/dL (32-36); Mean Corpuscular Hgb 27.7 pg (27.0-32.0); Mean Corpuscular Volume 88.1 fL (80-94); Mean Platelet Vol. 10.4 fl (6.2-12.0); Monocyte# 1.32 X10^3/uL; NRBC Flagged by Analyzer 0 % (0-5); Neutrophil # 5.51 X10^3/uL (2.7-7.7); Neutrophil % 58.3 % (47-70); Platelet Count 195 K/mm3 (150-450); RBC Distribution Width CV 13.5 % (11.6-14.6); RBC Distribution Width SD 43.7 fl (35.1-43.9); Red Blood Count 4.12 M/mm3 (4.6-6.2); White Blood Count 9.5 K/mm3 (4.4-11.0)
[2023-11-28 06:01] LABS: Anion Gap 5 (5-15); BUN 35 mg/dL (7-18); BUN/Creat Ratio 31.5 RATIO (10-20); Calcium,Total 8.9 mg/dL (8.5-10.1); Chloride 109 mmol/L (98-107); Creatinine, Serum 1.11 mg/dL (0.70-1.30); EST Glomerular Filtration Rate 67 mL/min (>60); Est Glom Filt Rate - Afr Amer 81 mL/min (>60); Estimated Creatinine Clearance 58.93 ml/min; Glucose 193 mg/dL (74-106); Potassium 4.4 mmol/L (3.5-5.1); Sodium Level 138 mmol/L (136-145)
[2023-11-28] MEDS: Gabapentin 300 MG Capsule PO ×3 (06:05→22:32)
[2023-11-28] MEDS: Levothyroxine 75 MCG Tablet PO (06:05)
[2023-11-28 06:42] LABS: Bedside Glucose 160 mg/dL (74-106)
[2023-11-28] MEDS: Glucerna Shake 120 ML LIQUID PO ×3 (07:52→17:54)
[2023-11-28] MEDS: Omega-3 Acid Ethyl Esters 1 GM Capsule PO ×2 (07:54→22:33)
[2023-11-28] MEDS: Senna/Docusate Sodium 1 Tablet 2 TABLET PO ×2 (07:54→22:33)
[2023-11-28] MEDS: Losartan Potassium 100 MG Tablet PO (07:54)
[2023-11-28] MEDS: Aspirin 325 MG Tablet PO (07:54)
[2023-11-28] MEDS: Insulin Lispro 100 UNIT/ML INSULN.PEN 9 UNIT SC ×3 (07:55→17:54)
[2023-11-28] MEDS: Insulin Lispro 100 UNIT/ML INSULN.PEN SC ×2 (07:55→17:55)
[2023-11-28] MEDS: Magnesium Citrate 300 ML PO (09:58)
[2023-11-28 10:36] VITALS: BMI 40.1
[2023-11-28 11:20] VITALS: PULSE 63; RESP 18; O2SAT 95
[2023-11-28 11:27] LABS: Bedside Glucose 140 mg/dL (74-106)
[2023-11-28] MEDS: Tuberculin,Purif.prot.deriv. 50 TU/ML Vial 0.1 ML ID (11:35)
[2023-11-28] MEDS: oxyCODONE 5 MG Tablet PO ×2 (11:35→22:33)
[2023-11-28 14:12] VITALS: BP 126/58; PULSE 63; RESP 18; TEMP 36.4; O2SAT 95
[2023-11-28 17:44] LABS: Bedside Glucose 218 mg/dL (74-106)
[2023-11-28 21:28] LABS: Bedside Glucose 188 mg/dL (74-106)
[2023-11-28 22:18] VITALS: BP 137/57; PULSE 57
[2023-11-28] MEDS: Atenolol 25 MG Tablet PO (22:33)
[2023-11-28] MEDS: Insulin Glargine-YFGN 100 UNIT/ML Pen 27 UNIT SC (22:33)
[2023-11-28] MEDS: Acetaminophen 500 MG Tablet 1000 MG PO (22:33)
[2023-11-28] MEDS: MELATONIN 10 MG TABLET PO (22:33)
[2023-11-28] MEDS: Atorvastatin Calcium 40 MG Tablet PO (22:33)
[2023-11-29] MEDS: Gabapentin 300 MG Capsule PO ×3 (05:53→22:23)
[2023-11-29] MEDS: Acetaminophen 500 MG Tablet 1000 MG PO ×3 (05:53→22:24)
[2023-11-29] MEDS: oxyCODONE 5 MG Tablet PO ×2 (05:53→22:23)
[2023-11-29] MEDS: Levothyroxine 75 MCG Tablet PO (05:54)
[2023-11-29 06:42] LABS: Bedside Glucose 151 mg/dL (74-106)
[2023-11-29] MEDS: Aspirin 325 MG Tablet PO (08:24)
[2023-11-29] MEDS: Insulin Lispro 100 UNIT/ML INSULN.PEN 9 UNIT SC ×3 (08:24→17:52)
[2023-11-29] MEDS: Omega-3 Acid Ethyl Esters 1 GM Capsule PO ×2 (08:24→22:25)
[2023-11-29] MEDS: Senna/Docusate Sodium 1 Tablet 2 TABLET PO ×2 (08:24→22:26)
[2023-11-29] MEDS: Losartan Potassium 100 MG Tablet PO (08:24)
[2023-11-29] MEDS: Insulin Lispro 100 UNIT/ML INSULN.PEN SC ×3 (08:25→17:52)
[2023-11-29] MEDS: Glucerna Shake 120 ML LIQUID PO ×3 (08:26→17:55)
[2023-11-29 08:33] VITALS: BP 120/60; PULSE 55
--- NOTE | 2023-11-29 10:04 | CASEMGMT ---
Social Work- Care Plan IDT met with patient at bedside to complete care planning. Discussed patient progress with therapy (PT/OT) and dietary. Patient is on low calorie diet. Patient is contact guard for transferring and wheelchair mobility. Patient can self propel in wheelchair. Patient reports feeling afraid to fall. Patient has chosen to remain wheelchair bound. Patient reports that home is handicap accessible and outfitted for support. SW educated patient of Medicare coverage and benefits. Patient was notified that first 20 days; copay is 204/day. Patient informed staff that he would like to return home with home health care. Patient anticipates having son from [place] stay with him for a month or so. Patient informed team that he has support from his family and neighbors to obtains meals and care. Patient informed SW that he has some support from [place] for home health care and obtaining DME. Patient has wheelchair at home that he purchased private pay. Patient would like to continue therapy at this time. SW will continue to follow for discharge planning. GUSTABO Vega
[2023-11-29 11:18] LABS: Bedside Glucose 161 mg/dL (74-106)
[2023-11-29] MEDS: COVID VAC 23-24(12UP)(ANDU)/PF 50 MCG/0.5 ML SYRINGE IM (11:40)
--- NOTE | 2023-11-29 11:46 | NURSING ---
Box Nailer Note, Activity Asset: Eduardo Buchanan has returned to TCU for continued therapy. He remains independent in his choice of daily activities. This time during his assortments w/staff he mentioned not wanting to talk about his time in the there for we will respect his wishes. He will watch tv, read, talk and visit w/family and friends. Staff will remind him of weekly activities and encourage social interaction and respect his right to say no.
[2023-11-29 14:50] VITALS: BP 144/49; PULSE 57; RESP 16; TEMP 36.7; O2SAT 96
[2023-11-29 16:27] LABS: Bedside Glucose 170 mg/dL (74-106)
[2023-11-29 21:58] LABS: Bedside Glucose 210 mg/dL (74-106)
[2023-11-29] MEDS: Insulin Glargine-YFGN 100 UNIT/ML Pen 27 UNIT SC (22:24)
[2023-11-29] MEDS: Atorvastatin Calcium 40 MG Tablet PO (22:26)
[2023-11-29] MEDS: MELATONIN 10 MG TABLET PO (22:26)
[2023-11-29] MEDS: Atenolol 25 MG Tablet PO (22:26)
[2023-11-29 22:30] VITALS: PULSE 53; RESP 17; O2SAT 96
[2023-11-29 22:33] VITALS: BP 132/53; PULSE 53
[2023-11-30] MEDS: Levothyroxine 75 MCG Tablet PO (05:46)
[2023-11-30] MEDS: Gabapentin 300 MG Capsule PO ×3 (05:48→21:58)
[2023-11-30 05:50] VITALS: RESP 16
[2023-11-30 06:35] LABS: Bedside Glucose 144 mg/dL (74-106)
[2023-11-30] MEDS: Glucerna Shake 120 ML LIQUID PO ×3 (08:20→17:53)
[2023-11-30] MEDS: Losartan Potassium 100 MG Tablet PO (08:21)
[2023-11-30] MEDS: Insulin Lispro 100 UNIT/ML INSULN.PEN 9 UNIT SC ×3 (08:21→17:51)
[2023-11-30] MEDS: Aspirin 325 MG Tablet PO (08:21)
[2023-11-30] MEDS: Omega-3 Acid Ethyl Esters 1 GM Capsule PO ×2 (08:22→21:53)
[2023-11-30] MEDS: Senna/Docusate Sodium 1 Tablet 2 TABLET PO ×2 (08:25→21:52)
[2023-11-30] MEDS: Acetaminophen 500 MG Tablet 1000 MG PO ×2 (08:25→17:51)
[2023-11-30] MEDS: oxyCODONE 5 MG Tablet PO ×2 (08:26→14:27)
[2023-11-30 11:12] LABS: Bedside Glucose 192 mg/dL (74-106)
[2023-11-30] MEDS: Insulin Lispro 100 UNIT/ML INSULN.PEN SC ×2 (12:02→17:52)
--- NOTE | 2023-11-30 13:21 | WOUNDNOTE ---
attempted to assess the heels yesterday and today. pt has been with therapy both times. will attempt again in the am.
[2023-11-30 15:11] VITALS: BP 101/52; PULSE 65; RESP 16; TEMP 36.4; O2SAT 93
--- NOTE | 2023-11-30 15:24 | CHAPLAIN ---
Type of Pastoral Visit ___ Initial Visit _x__ Follow-up Visit ___ On-call Visit ___ General Patient Visit ___ Spiritual Assessment ___ Family Conference ___ Bereavement ___ Rapid Response ___ Code Blue ___ Other (describe below) Pastoral Care Referral From _x__ Patient ___ Family ___ Nurse ___ Physician ___ It Infrastructure Manager ___ Consultant ___ Other (describe below) Sacrament/Intervention _x__ Active listening ___ Anointing ___ Jew ___ Bereavement ___ Communion ___ Ann exploration ___ _x__ Life review ___ Prayer ___ Reconciliation ___ Sacrament of Sick _x__ Supportive presence ___ Wedding ___ Other (describe below) Pastoral Comments more life stories and conversation of life's interests; pt likes having someone to talk with and expresses hope for continued progress
[2023-11-30 16:26] LABS: Bedside Glucose 182 mg/dL (74-106)
[2023-11-30 21:33] LABS: Bedside Glucose 184 mg/dL (74-106)
[2023-11-30] MEDS: Insulin Glargine-YFGN 100 UNIT/ML Pen 27 UNIT SC (21:53)
[2023-11-30] MEDS: MELATONIN 10 MG TABLET PO (21:53)
[2023-11-30] MEDS: Atorvastatin Calcium 40 MG Tablet PO (21:53)
[2023-11-30] MEDS: Atenolol 25 MG Tablet PO (21:53)
[2023-12-01] MEDS: oxyCODONE 5 MG Tablet PO ×3 (00:11→21:35)
[2023-12-01] MEDS: Levothyroxine 75 MCG Tablet PO (06:46)
[2023-12-01] MEDS: Gabapentin 300 MG Capsule PO ×3 (06:46→21:35)
[2023-12-01 06:52] LABS: Bedside Glucose 158 mg/dL (74-106)
[2023-12-01] MEDS: Losartan Potassium 100 MG Tablet PO (08:05)
[2023-12-01] MEDS: Aspirin 325 MG Tablet PO (08:05)
[2023-12-01] MEDS: Senna/Docusate Sodium 1 Tablet 2 TABLET PO ×2 (08:05→21:30)
[2023-12-01] MEDS: Insulin Lispro 100 UNIT/ML INSULN.PEN 9 UNIT SC ×3 (08:06→18:00)
[2023-12-01] MEDS: Omega-3 Acid Ethyl Esters 1 GM Capsule PO ×2 (08:06→21:30)
[2023-12-01] MEDS: Glucerna Shake 120 ML LIQUID PO ×3 (08:06→17:59)
[2023-12-01] MEDS: Insulin Lispro 100 UNIT/ML INSULN.PEN SC ×3 (08:07→18:00)
[2023-12-01] MEDS: Acetaminophen 500 MG Tablet 1000 MG PO (08:09)
--- NOTE | 2023-12-01 08:10 | MDS.RN ---
Information for the MDS was obtained from review of the clinical record, interview of resident, staff, and direct observation of resident?s care.
[2023-12-01 11:01] LABS: Bedside Glucose 150 mg/dL (74-106)
[2023-12-01 13:05] VITALS: BP 108/58; PULSE 60; RESP 18; TEMP 36.8; O2SAT 93
--- NOTE | 2023-12-01 14:00 | WOUNDNOTE ---
wound photo: right heel
[2023-12-01 17:41] LABS: Bedside Glucose 173 mg/dL (74-106)
[2023-12-01 20:09] VITALS: RESP 18; O2SAT 95
[2023-12-01] MEDS: Insulin Glargine-YFGN 100 UNIT/ML Pen 27 UNIT SC (21:28)
[2023-12-01] MEDS: Atorvastatin Calcium 40 MG Tablet PO (21:30)
[2023-12-01] MEDS: Atenolol 25 MG Tablet PO (21:30)
[2023-12-01] MEDS: MELATONIN 10 MG TABLET PO (21:30)
[2023-12-01 21:37] VITALS: BP 154/61; PULSE 60; RESP 16
[2023-12-01 21:37] LABS: Bedside Glucose 239 mg/dL (74-106)
[2023-12-02] MEDS: Gabapentin 300 MG Capsule PO ×3 (05:52→22:03)
[2023-12-02] MEDS: Levothyroxine 75 MCG Tablet PO (05:52)
[2023-12-02] MEDS: Acetaminophen 500 MG Tablet 1000 MG PO ×2 (05:52→22:03)
[2023-12-02 06:24] LABS: Bedside Glucose 147 mg/dL (74-106)
[2023-12-02] MEDS: Senna/Docusate Sodium 1 Tablet 2 TABLET PO (08:16)
[2023-12-02] MEDS: Glucerna Shake 120 ML LIQUID PO ×3 (08:17→17:45)
[2023-12-02] MEDS: Omega-3 Acid Ethyl Esters 1 GM Capsule PO ×2 (08:17→22:04)
[2023-12-02] MEDS: Aspirin 325 MG Tablet PO (08:17)
[2023-12-02] MEDS: Insulin Lispro 100 UNIT/ML INSULN.PEN 9 UNIT SC ×3 (08:17→17:40)
[2023-12-02] MEDS: oxyCODONE 5 MG Tablet PO ×2 (08:21→20:28)
[2023-12-02] MEDS: Losartan Potassium 100 MG Tablet PO (10:38)
[2023-12-02 10:59] VITALS: BP 117/55; PULSE 57
[2023-12-02 11:27] LABS: Bedside Glucose 154 mg/dL (74-106)
[2023-12-02] MEDS: Insulin Lispro 100 UNIT/ML INSULN.PEN SC ×2 (12:14→17:41)
[2023-12-02 14:36] VITALS: BP 108/54; PULSE 50; RESP 16; TEMP 36.5; O2SAT 97
[2023-12-02 16:29] LABS: Bedside Glucose 196 mg/dL (74-106)
[2023-12-02 21:36] LABS: Bedside Glucose 260 mg/dL (74-106)
[2023-12-02] MEDS: Atorvastatin Calcium 40 MG Tablet PO (22:04)
[2023-12-02] MEDS: Atenolol 25 MG Tablet PO (22:05)
[2023-12-02] MEDS: MELATONIN 10 MG TABLET PO (22:05)
[2023-12-02] MEDS: Insulin Glargine-YFGN 100 UNIT/ML Pen 27 UNIT SC (22:08)
[2023-12-03] MEDS: oxyCODONE 5 MG Tablet PO ×3 (01:38→23:16)
[2023-12-03] MEDS: Levothyroxine 75 MCG Tablet PO (05:35)
[2023-12-03] MEDS: Gabapentin 300 MG Capsule PO ×3 (05:35→21:22)
[2023-12-03 06:50] LABS: Bedside Glucose 188 mg/dL (74-106)
[2023-12-03] MEDS: Omega-3 Acid Ethyl Esters 1 GM Capsule PO ×2 (08:28→21:22)
[2023-12-03] MEDS: Losartan Potassium 100 MG Tablet PO (08:28)
[2023-12-03] MEDS: Aspirin 325 MG Tablet PO (08:29)
[2023-12-03] MEDS: Senna/Docusate Sodium 1 Tablet 2 TABLET PO ×2 (08:29→21:22)
[2023-12-03] MEDS: Insulin Lispro 100 UNIT/ML INSULN.PEN 9 UNIT SC ×3 (08:29→18:06)
[2023-12-03] MEDS: Insulin Lispro 100 UNIT/ML INSULN.PEN SC ×3 (08:29→18:07)
[2023-12-03 08:35] VITALS: BP 118/60; PULSE 54
[2023-12-03] MEDS: Glucerna Shake 120 ML LIQUID PO ×3 (10:17→18:10)
[2023-12-03] MEDS: Petrolatum 33% Tube 1 APPLIC TOPICAL (10:18)
[2023-12-03 11:31] LABS: Bedside Glucose 177 mg/dL (74-106)
[2023-12-03 15:40] VITALS: BP 99/51; PULSE 55; RESP 16; TEMP 36.6; O2SAT 97
[2023-12-03 16:31] LABS: Bedside Glucose 176 mg/dL (74-106)
[2023-12-03] MEDS: Atorvastatin Calcium 40 MG Tablet PO (21:21)
[2023-12-03] MEDS: Insulin Glargine-YFGN 100 UNIT/ML Pen 27 UNIT SC (21:21)
[2023-12-03] MEDS: Acetaminophen 500 MG Tablet 1000 MG PO (21:22)
[2023-12-03] MEDS: MELATONIN 10 MG TABLET PO (21:22)
[2023-12-03] MEDS: Atenolol 25 MG Tablet PO (21:22)
[2023-12-03 21:24] VITALS: PULSE 72
[2023-12-03 21:34] LABS: Bedside Glucose 265 mg/dL (74-106)
[2023-12-03 21:51] LABS: Bedside Glucose 235 mg/dL (74-106)
[2023-12-04] MEDS: oxyCODONE 5 MG Tablet PO ×2 (03:19→23:42)
[2023-12-04] MEDS: Levothyroxine 75 MCG Tablet PO (06:09)
[2023-12-04] MEDS: Gabapentin 300 MG Capsule PO ×3 (06:09→22:10)
[2023-12-04 06:49] LABS: Bedside Glucose 149 mg/dL (74-106)
[2023-12-04] MEDS: Losartan Potassium 100 MG Tablet PO (09:04)
[2023-12-04] MEDS: Aspirin 325 MG Tablet PO (09:04)
[2023-12-04] MEDS: Omega-3 Acid Ethyl Esters 1 GM Capsule PO ×2 (09:04→22:15)
[2023-12-04] MEDS: Glucerna Shake 120 ML LIQUID PO ×3 (09:04→18:08)
[2023-12-04] MEDS: Senna/Docusate Sodium 1 Tablet 2 TABLET PO ×2 (09:04→22:15)
[2023-12-04] MEDS: Insulin Lispro 100 UNIT/ML INSULN.PEN 9 UNIT SC ×3 (09:08→18:10)
[2023-12-04 11:17] LABS: Bedside Glucose 122 mg/dL (74-106)
[2023-12-04] MEDS: Acetaminophen 500 MG Tablet 1000 MG PO ×2 (14:04→23:42)
[2023-12-04 14:16] VITALS: PULSE 64; RESP 16; O2SAT 92
[2023-12-04 14:24] VITALS: BP 119/53; PULSE 64; RESP 16; TEMP 36.9; O2SAT 92
[2023-12-04 16:31] LABS: Bedside Glucose 169 mg/dL (74-106)
[2023-12-04] MEDS: Insulin Lispro 100 UNIT/ML INSULN.PEN SC (18:09)
[2023-12-04 21:44] LABS: Bedside Glucose 170 mg/dL (74-106)
[2023-12-04] MEDS: Insulin Glargine-YFGN 100 UNIT/ML Pen 27 UNIT SC (22:11)
[2023-12-04] MEDS: MELATONIN 10 MG TABLET PO (22:15)
[2023-12-04] MEDS: Atorvastatin Calcium 40 MG Tablet PO (22:15)
[2023-12-04] MEDS: Atenolol 25 MG Tablet PO (22:16)
[2023-12-04 22:19] VITALS: BP 157/75; PULSE 56
[2023-12-05] MEDS: Gabapentin 300 MG Capsule PO ×3 (05:15→22:03)
[2023-12-05] MEDS: Levothyroxine 75 MCG Tablet PO (05:15)
[2023-12-05 06:10] LABS: Absolute Lymphocyte Count 2.13 X10^3/uL (0.83-4.51); Absolute Neutrophil Count 4.2 X10^3/uL (2.0-7.7); Basophil# 0.03 X10^3/uL; Basophil% 0.4 % (0-1); Eosinophil# 0.23 X10^3/uL; Lymphocyte # 2.13 X10^3/ul (0.83-4.51); Mean Corp Hgb Conc 30.6 g/dL (32-36); Mean Corpuscular Hgb 27.2 pg (27.0-32.0); Mean Corpuscular Volume 89.1 fL (80-94); Mean Platelet Vol. 10.2 fl (6.2-12.0); Monocyte# 1.02 X10^3/uL; Monocyte% 13.4 % (0-10); NRBC Flagged by Analyzer 0 % (0-5); Neutrophil # 4.16 X10^3/uL (2.7-7.7); Neutrophil % 54.7 % (47-70); Platelet Count 214 K/mm3 (150-450); RBC Distribution Width CV 13.2 % (11.6-14.6); RBC Distribution Width SD 43.3 fl (35.1-43.9); Red Blood Count 4.04 M/mm3 (4.6-6.2); White Blood Count 7.6 K/mm3 (4.4-11.0)
[2023-12-05 06:19] LABS: Bedside Glucose 111 mg/dL (74-106)
[2023-12-05 06:30] LABS: Anion Gap 4 (5-15); BUN 45 mg/dL (7-18); BUN/Creat Ratio 33.1 RATIO (10-20); Calcium,Total 8.6 mg/dL (8.5-10.1); Chloride 110 mmol/L (98-107); Creatinine, Serum 1.36 mg/dL (0.70-1.30); EST Glomerular Filtration Rate 53 mL/min (>60); Est Glom Filt Rate - Afr Amer 64 mL/min (>60); Estimated Creatinine Clearance 48.98 ml/min; Glucose 120 mg/dL (74-106); Potassium 4.5 mmol/L (3.5-5.1); Sodium Level 138 mmol/L (136-145)
[2023-12-05 08:59] VITALS: BMI 40.3
[2023-12-05 09:17] VITALS: BP 106/51; PULSE 66; RESP 16; TEMP 36.8; O2SAT 92
[2023-12-05] MEDS: Glucerna Shake 120 ML LIQUID PO ×3 (09:18→17:58)
[2023-12-05] MEDS: Senna/Docusate Sodium 1 Tablet 2 TABLET PO ×2 (09:18→22:03)
[2023-12-05] MEDS: Omega-3 Acid Ethyl Esters 1 GM Capsule PO ×2 (09:18→22:03)
[2023-12-05] MEDS: Losartan Potassium 100 MG Tablet PO (09:19)
[2023-12-05] MEDS: Aspirin 325 MG Tablet PO (09:19)
[2023-12-05] MEDS: Insulin Lispro 100 UNIT/ML INSULN.PEN 9 UNIT SC ×3 (09:20→17:57)
[2023-12-05 10:59] VITALS: RESP 16
[2023-12-05 11:47] LABS: Bedside Glucose 115 mg/dL (74-106)
[2023-12-05] MEDS: oxyCODONE 5 MG Tablet PO ×2 (13:31→23:43)
[2023-12-05] MEDS: Acetaminophen 500 MG Tablet 1000 MG PO (13:31)
[2023-12-05 16:52] LABS: Bedside Glucose 142 mg/dL (74-106)
[2023-12-05] MEDS: Arthritis Pain Compound 60 CLICK TUBE TOPICAL ×2 (18:01→22:01)
[2023-12-05 21:19] LABS: Bedside Glucose 159 mg/dL (74-106)
[2023-12-05] MEDS: Insulin Glargine-YFGN 100 UNIT/ML Pen 27 UNIT SC (22:01)
[2023-12-05] MEDS: Atenolol 25 MG Tablet PO (22:03)
[2023-12-05] MEDS: MELATONIN 10 MG TABLET PO (22:03)
[2023-12-05] MEDS: Atorvastatin Calcium 40 MG Tablet PO (22:03)
[2023-12-06] MEDS: Acetaminophen 500 MG Tablet 1000 MG PO ×3 (02:56→23:11)
[2023-12-06] MEDS: Gabapentin 300 MG Capsule PO ×3 (05:17→21:55)
[2023-12-06] MEDS: Levothyroxine 75 MCG Tablet PO (05:17)
[2023-12-06] MEDS: oxyCODONE 5 MG Tablet PO ×3 (05:17→23:12)
[2023-12-06] MEDS: Petrolatum 33% Tube 1 APPLIC TOPICAL (05:26)
[2023-12-06 05:29] VITALS: PULSE 60; RESP 14; O2SAT 97
[2023-12-06 06:26] LABS: Bedside Glucose 163 mg/dL (74-106)
[2023-12-06] MEDS: MethylPREDNISolone DosePak 4 MG BOX PO ×4 (08:04→21:57)
[2023-12-06] MEDS: Insulin Lispro 100 UNIT/ML INSULN.PEN 9 UNIT SC ×3 (08:06→17:41)
[2023-12-06] MEDS: Insulin Lispro 100 UNIT/ML INSULN.PEN SC ×2 (08:07→17:41)
[2023-12-06] MEDS: Senna/Docusate Sodium 1 Tablet 2 TABLET PO ×2 (08:08→21:56)
[2023-12-06] MEDS: Aspirin 325 MG Tablet PO (08:08)
[2023-12-06] MEDS: Losartan Potassium 100 MG Tablet PO (08:08)
[2023-12-06] MEDS: Arthritis Pain Compound 60 CLICK TUBE TOPICAL ×2 (08:08→21:57)
[2023-12-06] MEDS: Omega-3 Acid Ethyl Esters 1 GM Capsule PO ×2 (08:08→21:55)
[2023-12-06] MEDS: Glucerna Shake 120 ML LIQUID PO ×3 (08:09→17:41)
[2023-12-06 08:20] VITALS: BP 135/57; PULSE 58
[2023-12-06 11:06] LABS: Bedside Glucose 140 mg/dL (74-106)
[2023-12-06 14:46] VITALS: BP 116/46; PULSE 61; RESP 16; TEMP 37.1; O2SAT 92
--- NOTE | 2023-12-06 16:30 | CASEMGMT ---
Social Work SW met with patient to discuss discharge plans. Patient informed SW that he would like to discharge home with home health care services. Patient informed SW that he is currently utilizing [facility] for [facility] health [facility] through [facility]. Patient informed SW that he has an aid and therapy comes to the home. SW will contact [facility] to increase servicecs. Patient informed SW that NIDHI came to bedside to assess wheelchair. Patient will require a 20in wheelchair at discharge. SW contact [facility] and spoke with Avtar who confirmed that the wheelchair will be in stock to provide at discharge. Patient informed SW that his son residing in [place] has an appointment next week and will travel down from [place] to assist with care post appointment. Patient informed SW that he would be agreeable to discharge on 12/11. Patient will be speaking with family to obtain supervision and care in the home. SW will continue to follow to coordinate discharge Discharge Plan: Home with Home Health; [facility] Wheelchair GUSTABO Vega
[2023-12-06 16:37] LABS: Bedside Glucose 203 mg/dL (74-106)
[2023-12-06] MEDS: Insulin Glargine-YFGN 100 UNIT/ML Pen 27 UNIT SC (21:53)
[2023-12-06 21:54] LABS: Bedside Glucose 226 mg/dL (74-106)
[2023-12-06] MEDS: MELATONIN 10 MG TABLET PO (21:55)
[2023-12-06] MEDS: Atorvastatin Calcium 40 MG Tablet PO (21:56)
[2023-12-06] MEDS: Atenolol 25 MG Tablet PO (21:56)
[2023-12-06 22:04] VITALS: BP 147/61; PULSE 57
[2023-12-07] MEDS: Gabapentin 300 MG Capsule PO ×3 (05:29→22:39)
[2023-12-07] MEDS: Levothyroxine 75 MCG Tablet PO (05:29)
[2023-12-07 06:31] LABS: Bedside Glucose 264 mg/dL (74-106)
[2023-12-07] MEDS: Glucerna Shake 120 ML LIQUID PO ×3 (08:21→17:51)
[2023-12-07] MEDS: Insulin Lispro 100 UNIT/ML INSULN.PEN SC ×3 (08:21→17:51)
[2023-12-07] MEDS: Losartan Potassium 100 MG Tablet PO (08:21)
[2023-12-07] MEDS: Senna/Docusate Sodium 1 Tablet 2 TABLET PO ×2 (08:21→22:36)
[2023-12-07] MEDS: MethylPREDNISolone DosePak 4 MG BOX PO ×4 (08:21→22:35)
[2023-12-07] MEDS: Aspirin 325 MG Tablet PO (08:21)
[2023-12-07] MEDS: Omega-3 Acid Ethyl Esters 1 GM Capsule PO ×2 (08:21→22:35)
[2023-12-07] MEDS: Insulin Lispro 100 UNIT/ML INSULN.PEN 9 UNIT SC ×3 (08:22→17:52)
[2023-12-07] MEDS: Arthritis Pain Compound 60 CLICK TUBE TOPICAL ×2 (08:22→22:34)
[2023-12-07 08:27] VITALS: BP 134/52; PULSE 59
[2023-12-07 11:54] LABS: Bedside Glucose 160 mg/dL (74-106)
--- NOTE | 2023-12-07 13:37 | WOUNDNOTE ---
wound photo: bilateral lower legs
[2023-12-07] MEDS: oxyCODONE 5 MG Tablet PO ×2 (14:06→22:39)
[2023-12-07] MEDS: Acetaminophen 500 MG Tablet 1000 MG PO ×2 (14:06→22:40)
[2023-12-07 14:27] VITALS: BP 129/58; PULSE 56; RESP 17; TEMP 36.6; O2SAT 92
[2023-12-07 16:38] LABS: Bedside Glucose 231 mg/dL (74-106)
[2023-12-07] MEDS: Furosemide 40 MG Tablet PO (17:51)
--- NOTE | 2023-12-07 20:19 | DS.PCM_ITS ---
Providers Date of Admission: 11/20/23 Primary Care Physician: Dr. Demetris Fuentes MD Reason For Visit: KELVIN/DEBILITY Diagnosis Discharge Diagnosis (1) Debility: Status: Acute Code(s): R53.81 - Other malaise (2) Weakness: Status: Acute Code(s): R53.1 - Weakness (3) Acute kidney injury: Status: Resolved Code(s): N17.9 - Acute kidney failure, unspecified (4) Venous stasis dermatitis: Status: Acute Code(s): I87.2 - Venous insufficiency (chronic) (peripheral) (5) Osteoarthritis of knees, bilateral: Status: Acute Code(s): M17.0 - Bilateral primary osteoarthritis of knee (6) Left cervical radiculopathy: Status: Acute Code(s): M54.12 - Radiculopathy, cervical region (7) Stroke/cerebrovascular accident: Status: Acute Code(s): I63.9 - Cerebral infarction, unspecified (8) Hypertension: Status: Chronic Code(s): I10 - Essential (primary) hypertension (9) Hyperlipidemia: Status: Acute Code(s): E78.5 - Hyperlipidemia, unspecified (10) Type 2 diabetes mellitus with hyperglycemia: Status: Acute Code(s): E11.65 - Type 2 diabetes mellitus with hyperglycemia (11) Hypothyroidism: Status: Acute Code(s): E03.9 - Hypothyroidism, unspecified (12) Coronary artery disease: Status: Acute Code(s): I25.10 - Atherosclerotic heart disease of [place] coronary artery without angina pectoris Plan 82 year old male with below past medical history hospitalized for weakness 2/2 acute kidney injury, complicated by severe osteoarthritis bilateral knees, venous stasis dermatitis of legs, admitted to TCU with debility, here for rehabilitation, strengthening, prior to discharge home alone. * Debility - PT/OT. * Pain - Tylenol 1000mg q6 prn pain (1-3), Oxycodone 2.5mg - 5mg q4h prn pain (4-10). * Bowel - senna/colace 2 tablets bid, Dulcolax 10mg pr daily prn. * Adult immunization - Administer Pneumonia vaccine, covid vaccine, Flu vaccine as appropriate. * DVT prophylaxis - Monitor. * Coronary artery disease - Atenolol 25mg qhs, Losartan 100mg daily, Aspirin 325mg daily, NTG 0.4mg sl q5m prn. * Hyperlipidemia - Atorvastatin 40mg qhs, [place] 3 1gm bid. * Neuropathic pain - Gabapentin 300mg tid. * Nutrition - Glucerna Shake 120ml tidcm. * Diabetes Mellitus II - Glargine 25 units qhs, Lispro 9 untis tidcm. * Hypothyroidism - Levothyroxine 75mcg daily. Medications at Discharge Home Medications aspirin 325 mg tablet 325 mg PO DAILY@0800 HEALTH MAINTENANCE 08/20/16 atenolol 25 mg tablet 25 mg PO QHS BP 08/20/16 atorvastatin 40 mg tablet 40 mg PO QHS CHOLESTEROL 08/20/16 levothyroxine 75 mcg tablet 75 mcg PO DAILY THYROID 08/20/16 nitroglycerin 0.4 mg sublingual tablet 0.4 mg sublingual Q5M PRN Chest Pain 08/20/16 insulin glargine-yfgn 100 unit/mL (3 mL) subcutaneous pen 27 unit subcut QHS Diabetes 12/19/22 insulin lispro 100 unit/mL subcutaneous pen (Humalog KwikPen (U-100) Insulin) 9 unit subcut TID Diabetes 12/19/22 gabapentin 300 mg capsule 300 mg PO TID Nerve Pain 11/16/23 glucosamine-chondroitin 250 mg-200 mg tablet (Osteo Bi-Flex) 2 tab PO TID Supplement 11/16/23 losartan 100 mg tablet 100 mg PO DAILY BP 11/16/23 omega 7-pwi-bck-fish oil 1,200 mg (144 mg-216 mg) capsule (Fish Oil) 1 cap PO BID Supplement 11/16/23 acetaminophen 500 mg tablet 1,000 mg (2 x 500 mg) PO Q6H PRN PRN Pain Score 1-10 #0 tabs 12/07/23 furosemide 40 mg tablet 40 mg PO DAILY 30 days #30 tabs 12/07/23 oxycodone 5 mg tablet 2.5 - 5 mg (0.5 - 1 x 5 mg) PO Q4H PRN PRN Pain Score 4-10 7 days #42 tabs 12/07/23 Hospital Course Operations None Procedures None Summary of Care Provided Minutes Spent on Discharge: 35 Hospital Course: 82 year old male with below past medical history hospitalized for weakness 2/2 acute kidney injury, complicated by severe osteoarthritis bilateral knees, venous stasis dermatitis of legs, admitted to TCU with debility, here for rehabilitation, strengthening, prior to discharge home alone. Discharge home alone 12/12/2023, [facility] PT/OT/SN/DATA PROCESSING CONTROL CLERK, DASCO wheelchair. Wheelchair: Patient has a mobility limitation that cannot be sufficiently resolved by using a cane or walker. Use of a wheelchair will improve the participating of ADLs on a regular basis in the home. Physical Exam Const alert General Appearance: cooperative HEENT normocephalic Eyes PERRL and EOMs intact bilaterally Neck supple, no JVD and no carotid bruits Resp normal respiratory effort, normal air movement and clear to auscultation bilaterally Cardio regular rate and regular rhythm GI normal to inspection, nondistended, normoactive bowel sounds, non-tender and non-distended Extremity normal capillary refill Extremity Narrative: Bilateral lower extremities dressed. General Extremity: Negative for edema Skin no rashes or lesions noted General Skin Exam: no breakdown Psych affect normal Appearance: appropriate Weight / BMI Weight Weight: 115.122 kg Body Mass Index (BMI) 40.3 ABG / Lab / Microbiology Data 12/05/23 05:58 12/05/23 05:58 Laboratory: Laboratory Results - last 24 hr 12/06/23 21:31: POC Glucose 226 H 12/07/23 06:12: POC Glucose 264 H 12/07/23 11:31: POC Glucose 160 H 12/07/23 16:20: POC Glucose 231 H D/C Instructions Discharge Diet: No restrictions Discharge Activity: Return to Normal Activity, May Shower and Use Walker Weight Bearing Status: Weight bearing as tolerated Call your doctor if you observe: Fever of 101 or Higher, Inability to urinate, Inability to have a bowel movement, Shortness of breath, Dizziness, Fainting spells, Swelling in the ankles, Chest pain and Uncontrolled pain Additional Instructions: Discharge home alone 12/12/2023, [facility] PT/OT/SN/DATA PROCESSING CONTROL CLERK, DASCO wheelchair. Wheelchair: Patient has a mobility limitation that cannot be sufficiently resolved by using a cane or walker. Use of a wheelchair will improve the participating of ADLs on a regular basis in the home. Meaningful Use Info Meaningful Use Meaningful Use Diagnoses (Choose all that apply): None applicable Ischemic Stroke Statin Dosing Therapy Reference: STATIN DOSE THERAPY REFERENCE: * Patients > 75 years receive moderate or high dose statin therapy. * Patients 75 years or YOUNGER should receive HIGH intensity statin dose unless contraindicated. You will be required to document reason for non-treatment if statin daily dose does not meet guidelines. HIGH DOSE STATIN THERAPY DAILY Atorvastatin > than or = to 40 mg Rosuvastatin > than or = to 20 mg Amlodipine + Atorvastatin > than or = to 2.5/40 mg Ezetimibe + Simvastatin 10/80 mg Simvastatin 80mg Discharge Plan Admission Admit Date/Time: 11/20/23 14:50 Primary Reason for Your Visit: Debility. Attending Provider: Sam Black Chi Primary Care Provider: Demetris Fuentes Instructions Additional Instructions / Restrictions: Discharge home alone 12/12/2023, [facility] PT/OT/SN/DATA PROCESSING CONTROL CLERK, DASCO wheelchair. Wheelchair: Patient has a mobility limitation that cannot be sufficiently resolved by using a cane or walker. Use of a wheelchair will improve the participating of ADLs on a regular basis in the home. Discharge Orders/Prescriptions Prescriptions: New acetaminophen 500 mg Tablet 1,000 mg PO Q6H PRN PRN (Reason: Pain Score 1-10) Qty: 0 0RF furosemide 40 mg Tablet 40 mg PO DAILY 30 Days Qty: 30 0RF oxycodone 5 mg Tablet 2.5 - 5 mg PO Q4H PRN PRN (Reason: Pain Score 4-10) 7 Days Qty: 42 0RF Continued atorvastatin 40 MG tablet 40 mg PO QHS aspirin 325 MG tablet 325 mg PO DAILY@0800 atenolol 25 MG tablet 25 mg PO QHS levothyroxine 75 MCG tablet 75 mcg PO DAILY nitroglycerin 0.4 MG tablet 0.4 mg sublingual Q5M PRN (Reason: Chest Pain) insulin lispro [Humalog KwikPen Insulin] 100 unit/mL Insulin Pen 9 unit SUBCUT TID insulin glargine-yfgn 100 unit/mL (3 mL) insulin pen 27 unit subcut QHS omega 5-ejx-mfb-fish oil [Fish Oil] 1,200 (144-216) mg capsule 1 cap PO BID gabapentin 300 mg capsule 300 mg PO TID losartan 100 mg tablet 100 mg PO DAILY glucosamine-chondroitin [Osteo Bi-Flex] 250-200 mg tablet 2 tab PO TID Rx Instructions: give after food/meal Discontinued metformin 850 MG tablet 850 mg PO BIDCM acetaminophen 325 mg Tablet 650 mg PO Q6H PRN PRN (Reason: Pain 1-10 Or Fever >100.7) Qty: 0 0RF insulin lispro [Humalog KwikPen Insulin] 100 unit/mL Insulin Pen See Protocol subcut TIDAC Qty: 0 0RF Protocol: 3. Sliding Scale Insulin Med Dosing Condition: 150-189 mg/dl = 1 unit Condition: 190-229 mg/dl = 2 units Condition: 230-269 mg/dl = 3 units Condition: 270-309 mg/dl = 4 units Condition: 310-349 mg/dl = 5 units Condition: 350-399 mg/dl = 6 units Condition: 400-449 mg/dl = 7 units Condition: Greater than 449 call physician Protocol Text: - Use for Total Daily Dose of Insulin 37-55 units - Obsese, infected, or steroid patients MEDIUM DOSING ALGORITHIM Glucerna 1.2 Jai 0.06-1.2 gram-kcal/mL Liquid 120 ml PO TIDCM Qty: 0 0RF oxycodone 5 mg Tablet 2.5 - 5 mg PO Q4H PRN PRN (Reason: Pain Score 4-10) 1 Days Qty: 1 0RF Referrals / Follow Up: Demetris Fuentes MD [Primary Care Provider] - Disposition Disposition (needs filled in before D/C Order can be placed): Home Health Service
[2023-12-07 21:29] LABS: Bedside Glucose 249 mg/dL (74-106)
[2023-12-07] MEDS: Insulin Glargine-YFGN 100 UNIT/ML Pen 27 UNIT SC (22:34)
[2023-12-07 22:35] VITALS: RESP 16
[2023-12-07] MEDS: Atorvastatin Calcium 40 MG Tablet PO (22:35)
[2023-12-07] MEDS: MELATONIN 10 MG TABLET PO (22:35)
[2023-12-07] MEDS: Atenolol 25 MG Tablet PO (22:40)
[2023-12-07 22:44] VITALS: BP 164/67; PULSE 55
[2023-12-08] MEDS: Levothyroxine 75 MCG Tablet PO (05:18)
[2023-12-08] MEDS: Gabapentin 300 MG Capsule PO ×3 (05:18→20:19)
[2023-12-08] MEDS: Acetaminophen 500 MG Tablet 1000 MG PO ×2 (05:20→23:44)
[2023-12-08] MEDS: oxyCODONE 5 MG Tablet PO ×3 (05:21→23:43)
[2023-12-08 06:20] LABS: Bedside Glucose 265 mg/dL (74-106)
[2023-12-08 08:10] LABS: Anion Gap 11 (5-15); BUN 47 mg/dL (7-18); BUN/Creat Ratio 33.8 RATIO (10-20); Calcium,Total 9.3 mg/dL (8.5-10.1); Chloride 105 mmol/L (98-107); Creatinine, Serum 1.39 mg/dL (0.70-1.30); EST Glomerular Filtration Rate 52 mL/min (>60); Est Glom Filt Rate - Afr Amer 63 mL/min (>60); Estimated Creatinine Clearance 48.03 ml/min; Glucose 286 mg/dL (74-106); Sodium Level 137 mmol/L (136-145)
[2023-12-08] MEDS: MethylPREDNISolone DosePak 4 MG BOX PO ×4 (08:14→20:18)
[2023-12-08] MEDS: Aspirin 325 MG Tablet PO (08:15)
[2023-12-08] MEDS: Glucerna Shake 120 ML LIQUID PO ×3 (08:18→17:39)
[2023-12-08] MEDS: Insulin Lispro 100 UNIT/ML INSULN.PEN 9 UNIT SC ×3 (08:18→17:39)
[2023-12-08] MEDS: Insulin Lispro 100 UNIT/ML INSULN.PEN SC ×3 (08:19→17:40)
[2023-12-08] MEDS: Losartan Potassium 100 MG Tablet PO (09:51)
[2023-12-08] MEDS: Furosemide 40 MG Tablet PO (09:51)
[2023-12-08] MEDS: Omega-3 Acid Ethyl Esters 1 GM Capsule PO ×2 (09:52→20:18)
[2023-12-08] MEDS: Senna/Docusate Sodium 1 Tablet 2 TABLET PO ×2 (09:53→20:19)
--- NOTE | 2023-12-08 09:59 | CASEMGMT ---
Social Work SW submitted patient's referral to [facility] for 20in Wheelchair to support discharge home. GUSTABO Vega
[2023-12-08 11:19] LABS: Bedside Glucose 216 mg/dL (74-106)
[2023-12-08] MEDS: Arthritis Pain Compound 60 CLICK TUBE TOPICAL ×2 (12:43→20:16)
--- NOTE | 2023-12-08 13:06 | NURSING ---
Updated that a patient on the unit tested positive for covid. Patient does not want family called.
[2023-12-08 14:02] VITALS: BP 115/49; PULSE 50; RESP 16; TEMP 36.9; O2SAT 93
--- NOTE | 2023-12-08 15:35 | CHAPLAIN ---
Type of Pastoral Visit ___ Initial Visit _x__ Follow-up Visit ___ On-call Visit ___ General Patient Visit ___ Spiritual Assessment ___ Family Conference ___ Bereavement ___ Rapid Response ___ Code Blue ___ Other (describe below) Pastoral Care Referral From _x__ Patient ___ Family ___ Nurse ___ Physician ___ [employer] ___ Workers Compensation Adjuster ___ Other (describe below) Sacrament/Intervention _x__ Active listening ___ Anointing ___ Hinduism ___ Bereavement ___ Communion ___ Ann exploration ___ _x__ Life review _x_ Prayer ___ Reconciliation ___ Sacrament of Sick _x__ Supportive presence ___ Wedding ___ Other (describe below) Pastoral Comments
[2023-12-08 16:44] LABS: Bedside Glucose 258 mg/dL (74-106)
[2023-12-08] MEDS: Atorvastatin Calcium 40 MG Tablet PO (20:17)
[2023-12-08] MEDS: Insulin Glargine-YFGN 100 UNIT/ML Pen 27 UNIT SC (20:17)
[2023-12-08] MEDS: MELATONIN 10 MG TABLET PO (20:18)
[2023-12-08] MEDS: Atenolol 25 MG Tablet PO (20:19)
[2023-12-08 21:32] LABS: Bedside Glucose 307 mg/dL (74-106)
[2023-12-09] MEDS: Gabapentin 300 MG Capsule PO ×3 (06:20→23:04)
[2023-12-09] MEDS: Levothyroxine 75 MCG Tablet PO (06:20)
[2023-12-09 07:01] LABS: Bedside Glucose 258 mg/dL (74-106)
[2023-12-09] MEDS: Insulin Lispro 100 UNIT/ML INSULN.PEN 9 UNIT SC ×3 (09:04→17:40)
[2023-12-09] MEDS: Insulin Lispro 100 UNIT/ML INSULN.PEN SC ×3 (09:04→17:41)
[2023-12-09] MEDS: MethylPREDNISolone DosePak 4 MG BOX PO ×3 (09:05→23:04)
[2023-12-09] MEDS: Arthritis Pain Compound 60 CLICK TUBE TOPICAL ×2 (09:05→23:11)
[2023-12-09] MEDS: Losartan Potassium 100 MG Tablet PO (09:05)
[2023-12-09] MEDS: Aspirin 325 MG Tablet PO (09:05)
[2023-12-09] MEDS: Omega-3 Acid Ethyl Esters 1 GM Capsule PO ×2 (09:06→23:06)
[2023-12-09] MEDS: Senna/Docusate Sodium 1 Tablet 2 TABLET PO ×2 (09:07→23:04)
[2023-12-09] MEDS: Furosemide 40 MG Tablet PO (09:07)
[2023-12-09 11:13] LABS: Bedside Glucose 177 mg/dL (74-106)
[2023-12-09] MEDS: Glucerna Shake 120 ML LIQUID PO ×2 (12:14→17:45)
[2023-12-09] MEDS: Acetaminophen 500 MG Tablet 1000 MG PO ×2 (12:23→18:49)
[2023-12-09] MEDS: oxyCODONE 5 MG Tablet PO ×3 (12:24→23:03)
[2023-12-09 12:52] VITALS: BP 108/51; PULSE 59; RESP 16; TEMP 36.3; O2SAT 93
[2023-12-09 16:39] LABS: Bedside Glucose 203 mg/dL (74-106)
[2023-12-09 20:00] VITALS: RESP 16
[2023-12-09 21:35] LABS: Bedside Glucose 237 mg/dL (74-106)
[2023-12-09] MEDS: Insulin Glargine-YFGN 100 UNIT/ML Pen 27 UNIT SC (23:02)
[2023-12-09] MEDS: MELATONIN 10 MG TABLET PO (23:04)
[2023-12-09] MEDS: Atenolol 25 MG Tablet PO (23:04)
[2023-12-09] MEDS: Atorvastatin Calcium 40 MG Tablet PO (23:04)
[2023-12-09] MEDS: Petrolatum 33% Tube 1 APPLIC TOPICAL (23:13)
[2023-12-10 06:12] LABS: Bedside Glucose 257 mg/dL (74-106)
[2023-12-10] MEDS: Levothyroxine 75 MCG Tablet PO (06:23)
[2023-12-10] MEDS: oxyCODONE 5 MG Tablet PO (06:23)
[2023-12-10] MEDS: Gabapentin 300 MG Capsule PO ×3 (06:23→22:40)
[2023-12-10 07:48] VITALS: BP 136/71; PULSE 60; RESP 17; TEMP 36.9; O2SAT 95
[2023-12-10] MEDS: Insulin Lispro 100 UNIT/ML INSULN.PEN SC ×3 (07:53→17:41)
[2023-12-10] MEDS: Insulin Lispro 100 UNIT/ML INSULN.PEN 9 UNIT SC ×3 (07:54→17:40)
[2023-12-10] MEDS: Aspirin 325 MG Tablet PO (07:54)
[2023-12-10] MEDS: Losartan Potassium 100 MG Tablet PO (07:55)
[2023-12-10] MEDS: MethylPREDNISolone DosePak 4 MG BOX PO ×2 (07:55→22:40)
[2023-12-10] MEDS: Arthritis Pain Compound 60 CLICK TUBE TOPICAL ×2 (07:55→22:40)
[2023-12-10] MEDS: Omega-3 Acid Ethyl Esters 1 GM Capsule PO ×2 (07:56→22:40)
[2023-12-10] MEDS: Senna/Docusate Sodium 1 Tablet 2 TABLET PO ×2 (07:56→22:40)
[2023-12-10] MEDS: Furosemide 40 MG Tablet PO (07:56)
[2023-12-10] MEDS: Glucerna Shake 120 ML LIQUID PO ×3 (07:58→17:40)
[2023-12-10 11:07] LABS: Bedside Glucose 164 mg/dL (74-106)
[2023-12-10 16:38] LABS: Bedside Glucose 185 mg/dL (74-106)
[2023-12-10 21:47] LABS: Bedside Glucose 258 mg/dL (74-106)
[2023-12-10] MEDS: MELATONIN 10 MG TABLET PO (22:40)
[2023-12-10] MEDS: Insulin Glargine-YFGN 100 UNIT/ML Pen 27 UNIT SC (22:40)
[2023-12-10] MEDS: Atorvastatin Calcium 40 MG Tablet PO (22:40)
[2023-12-10] MEDS: Atenolol 25 MG Tablet PO (22:41)
[2023-12-10] MEDS: Petrolatum 33% Tube 1 APPLIC TOPICAL (22:48)
[2023-12-11] MEDS: Gabapentin 300 MG Capsule PO ×3 (05:39→22:43)
[2023-12-11] MEDS: Levothyroxine 75 MCG Tablet PO (05:39)
[2023-12-11] MEDS: Insulin Lispro 100 UNIT/ML INSULN.PEN SC ×3 (05:42→18:08)
[2023-12-11 06:09] LABS: Bedside Glucose 255 mg/dL (74-106)
[2023-12-11] MEDS: Glucerna Shake 120 ML LIQUID PO ×3 (07:53→18:08)
[2023-12-11] MEDS: Insulin Lispro 100 UNIT/ML INSULN.PEN 9 UNIT SC ×3 (07:53→18:07)
[2023-12-11] MEDS: MethylPREDNISolone DosePak 4 MG BOX PO (07:54)
[2023-12-11] MEDS: Aspirin 325 MG Tablet PO (07:54)
[2023-12-11] MEDS: Furosemide 40 MG Tablet PO (07:55)
[2023-12-11] MEDS: Losartan Potassium 100 MG Tablet PO (07:55)
[2023-12-11] MEDS: Senna/Docusate Sodium 1 Tablet 2 TABLET PO ×2 (07:56→22:44)
[2023-12-11] MEDS: Arthritis Pain Compound 60 CLICK TUBE TOPICAL ×2 (07:56→22:45)
[2023-12-11] MEDS: Omega-3 Acid Ethyl Esters 1 GM Capsule PO ×2 (07:56→22:46)
[2023-12-11 11:37] LABS: Bedside Glucose 190 mg/dL (74-106)
[2023-12-11 14:23] VITALS: BP 101/50; PULSE 65; RESP 18; TEMP 36.8; O2SAT 94
--- NOTE | 2023-12-11 15:21 | CASEMGMT ---
Social Work SW received update from [facility] that the patient has been accepted for home health care services. [facility] will provide PT/OT/SN/SPINDLE TESTER. Patient has been notified at bedside. Patient has received a wheelchair at bedside. Patient informed ROSIO that his son from [place] will be traveling to assist with care on 12/12/2023 Discharge: Home with [facility] PT/OT/SN/SPINDLE TESTER; [facility] Wheelchair GUSTABO Vega
[2023-12-11 16:35] LABS: Bedside Glucose 196 mg/dL (74-106)
[2023-12-11 21:41] LABS: Bedside Glucose 308 mg/dL (74-106)
[2023-12-11] MEDS: Insulin Glargine-YFGN 100 UNIT/ML Pen 27 UNIT SC (22:44)
[2023-12-11] MEDS: Atenolol 25 MG Tablet PO (22:45)
[2023-12-11] MEDS: Atorvastatin Calcium 40 MG Tablet PO (22:46)
[2023-12-11] MEDS: MELATONIN 10 MG TABLET PO (22:46)
[2023-12-11] MEDS: oxyCODONE 5 MG Tablet PO (22:53)
[2023-12-12] MEDS: Gabapentin 300 MG Capsule PO (05:25)
[2023-12-12] MEDS: oxyCODONE 5 MG Tablet PO (05:25)
[2023-12-12] MEDS: Levothyroxine 75 MCG Tablet PO (05:26)
[2023-12-12 05:39] LABS: Absolute Lymphocyte Count 2.21 X10^3/uL (0.83-4.51); Absolute Neutrophil Count 5.6 X10^3/uL (2.0-7.7); Basophil# 0.05 X10^3/uL; Basophil% 0.5 % (0-1); Eosinophils% 2.2 % (0-5); Hematocrit 36.8 % (40-54); Hemoglobin 11.6 g/dL (13.0-16.5); Lymphocyte # 2.21 X10^3/ul (0.83-4.51); Lymphocyte % 23.8 % (19-41); Mean Corp Hgb Conc 31.5 g/dL (32-36); Mean Corpuscular Hgb 27.6 pg (27.0-32.0); Mean Corpuscular Volume 87.6 fL (80-94); Mean Platelet Vol. 10.4 fl (6.2-12.0); Monocyte# 1.11 X10^3/uL; NRBC Flagged by Analyzer 0 % (0-5); Neutrophil # 5.57 X10^3/uL (2.7-7.7); Neutrophil % 60.1 % (47-70); Platelet Count 264 K/mm3 (150-450); RBC Distribution Width CV 13.2 % (11.6-14.6); RBC Distribution Width SD 41.9 fl (35.1-43.9); White Blood Count 9.3 K/mm3 (4.4-11.0)
[2023-12-12 05:41] VITALS: PULSE 60; RESP 18
[2023-12-12 06:38] LABS: Bedside Glucose 197 mg/dL (74-106)
[2023-12-12 06:48] LABS: Anion Gap 5 (5-15); BUN 56 mg/dL (7-18); BUN/Creat Ratio 40.3 RATIO (10-20); Calcium,Total 8.8 mg/dL (8.5-10.1); Chloride 106 mmol/L (98-107); Creatinine, Serum 1.39 mg/dL (0.70-1.30); EST Glomerular Filtration Rate 52 mL/min (>60); Est Glom Filt Rate - Afr Amer 63 mL/min (>60); Estimated Creatinine Clearance 48.03 ml/min; Glucose 213 mg/dL (74-106); Potassium 3.9 mmol/L (3.5-5.1); Sodium Level 136 mmol/L (136-145)
[2023-12-12] MEDS: Insulin Lispro 100 UNIT/ML INSULN.PEN 9 UNIT SC (08:10)
[2023-12-12] MEDS: Insulin Lispro 100 UNIT/ML INSULN.PEN SC (08:11)
[2023-12-12] MEDS: Arthritis Pain Compound 60 CLICK TUBE TOPICAL (08:13)
[2023-12-12] MEDS: Glucerna Shake 120 ML LIQUID PO (08:13)
[2023-12-12] MEDS: Losartan Potassium 100 MG Tablet PO (08:13)
[2023-12-12] MEDS: Aspirin 325 MG Tablet PO (08:13)
[2023-12-12] MEDS: Senna/Docusate Sodium 1 Tablet 2 TABLET PO (08:14)
[2023-12-12] MEDS: Furosemide 40 MG Tablet PO (08:14)
[2023-12-12] MEDS: Omega-3 Acid Ethyl Esters 1 GM Capsule PO (08:14)
[2023-12-12 08:29] VITALS: BP 119/49; PULSE 58; O2SAT 95
--- NOTE | 2023-12-12 11:00 | CASEMGMT ---
Social Work- Discharge SW met with patient at bedside to complete discharge MDS. Patient BIM () and PhQ-2 () Patient denies any concerns at this time. Patient is agreeable to discharge home with home health care services. Patient has wheelchair at bedside delivered by [facility] on 12/10. Discharge 12/12/2023: Home with [facility] PT/OT/SN/GARAGE ATTENDANT; [facility] wheelchair GUSTABO Vega
[2023-12-12 11:15] VITALS: BP 100/51; PULSE 71; RESP 18; TEMP 36.9; O2SAT 92
== END 2023-12-12 11:40 | disposition home health service (06) | DRG 683 ==
PROVIDERS: Admitting Provider Family Medicine Geriatric Medicine; PCP Family Medicine; Visit Provider Family Medicine Geriatric Medicine
DX: N17.9 Acute kidney failure, unspecified (principal); Z68.41 Body mass index [BMI] 40.0-44.9, adult; L89.616 Pressure-induced deep tissue damage of right heel; E11.40 Type 2 diabetes mellitus with diabetic neuropathy, unspecified; E11.59 Type 2 diabetes mellitus with other circulatory complications; Z79.4 Long term (current) use of insulin; E11.65 Type 2 diabetes mellitus with hyperglycemia; E66.01 Morbid (severe) obesity due to excess calories; E03.9 Hypothyroidism, unspecified; I10 Essential (primary) hypertension; M17.0 Bilateral primary osteoarthritis of knee; E78.00 Pure hypercholesterolemia, unspecified; I87.2 Venous insufficiency (chronic) (peripheral); I25.10 Atherosclerotic heart disease of native coronary artery without angina pectoris; M54.12 Radiculopathy, cervical region; Z79.82 Long term (current) use of aspirin; Z79.890 Hormone replacement therapy; Z79.899 Other long term (current) drug therapy; G47.00 Insomnia, unspecified; Z23 Encounter for immunization; Z74.09 Other reduced mobility; Z99.3 Dependence on wheelchair
CPT/HCPCS: 36415; 80048; 80061; 82962; 85025; 87811; 90480; 97110; 97162; 97166; 97530; 97535; 97542; 97802; 91322; A4216

== ENCOUNTER 2024-05-28 19:24 | Inpatient (IN) | payer MEDICARE, OTHER, SELFPAY ==
[2024-05-28] VITALS (8 sets, daily range): BP systolic 117–153; BP diastolic 54–79; PULSE 57–99; RESP 16–22; TEMP 36.1–36.9; O2SAT 93–98; BMI 39.6; BMI 38.4
--- NOTE | 2024-05-28 19:31 | CT_ITS ---
We are attempting to reach an attending provider to discuss findings. An addendum with communication details will be sent when the communication is complete. STUDY: CT BRAIN WITHOUT CONTRAST REASON FOR EXAM: Male, 83 years old. Neuro deficit, acute, stroke suspected RADIATION DOSAGE (If Supplied By Facility): CTDIvol = ( ) mGy, DLP = ( 897.35 ) mGycm TECHNIQUE: Transaxial CT imaging of the brain was performed without administration of intravenous contrast material. Individualized dose optimization techniques were used for this CT. The protocol utilizes one or more of the following dose reduction techniques: automated exposure control, adjustment of mA and/or kV according to patient size,and/or use of iterative reconstruction technique. COMPARISON: CT brain December 19, 2022. FINDINGS: Normal soft tissue structures. Normal calvarium. There is moderate cerebral atrophy with widening of the extra-axial spaces and ventricular dilatation. There are areas of decreased attenuation within the white matter tracts of the supratentorial brain, consistent with microvascular disease changes. Normal basal ganglia and thalami. Normal brainstem. Normal cerebellum. Intracranial atherosclerosis. There is no intracranial hemorrhage. There are no findings of an acute ischemic infarction. Normal visualized paranasal sinuses. CT/STROKE Brain/Head without Cont IMPRESSION: Chronic involutional changes of the brain. Electronically Signed: Pablo Guerra MD at 19:56 EST ,
--- NOTE | 2024-05-28 19:33 | EDS_ITS ---
HPI History of Present Illness Chief Complaint: Stroke Alert Detail of Chief Complaint: Altered sensation weakness right upper extremity Informant: patient Onset/Context/Timing Onset: Today (1829) Context: Sudden Onset Timing: Continuous Quality and Location: Positive for Right Arm Parasthesia and Right Arm Weakness Current Severity: Mild Maximum Severity: Mild Worsened by: Nothing Relieved by: Nothing Associated Symptoms Associated Symptoms: Negative for Headache, Nausea, Vomiting or Chest Pain Narrative Narrative: Patient is an 83-year-old male. He has history of type 2 diabetes, coronary artery disease, osteoarthritis, hypothyroidism, hyperlipidemia, hypertension who presents with right arm numbness and weakness. This started at 1830. He has no other symptoms. Prior similar symptoms: No Recent Illness/Hospitalization: No [facility] Medical History Lactose intolerance Debility Bilateral edema of lower extremity Osteoarthritis Stroke/cerebrovascular accident Hypothyroid High cholesterol Diabetes Hypertension Home Medications ?Medication ?Instructions ?Recorded ?Last Taken ?Type aspirin 325 mg tablet 325 mg PO DAILY@0800 HEALTH 08/20/16 11/20/23 History MAINTENANCE atenolol 25 mg tablet 25 mg PO QHS BP 08/20/16 11/19/23 22:55 History atorvastatin 40 mg tablet 40 mg PO QHS CHOLESTEROL 08/20/16 11/19/23 22:55 Hi story levothyroxine 75 mcg tablet 75 mcg PO DAILY THYROID 08/20/16 11/20/23 05:00 History nitroglycerin 0.4 mg sublingual 0.4 mg sublingual Q5M PRN Chest 08/20/16 Unknown History tablet Pain insulin glargine-yfgn 100 unit/mL 27 unit subcut QHS Diabetes 12/19/22 11/19/23 23:25 History (3 mL) subcutaneous pen insulin lispro 100 unit/mL 9 unit subcut TID Diabetes 12/19/22 11/20/23 History subcutaneous pen (Humalog KwikPen (U-100) Insulin) gabapentin 300 mg capsule 300 mg PO TID PRN Nerve Pain 11/16/23 Unknown History glucosamine-chondroitin 250 mg-200 2 tab PO TID Supplement 11/16/23 Unknown History mg tablet (Osteo Bi-Flex) losartan 100 mg tablet 100 mg PO DAILY BP 11/16/23 11/20/23 08:10 History omega 0-atz-nam-fish oil 1,200 mg 1 cap PO BID Supplement 11/16/23 11/20/23 History (144 mg-216 mg) capsule (Fish Oil) acetaminophen 500 mg tablet 1,000 mg (2 x 500 mg) PO Q6H PRN 12/07/23 Unknown Rx PRN Pain Score 1-10 #0 tabs furosemide 40 mg tablet 40 mg PO DAILY 30 days #30 tabs 12/07/23 Unknown Rx empagliflozin 25 mg tablet 25 mg PO DAILY 05/28/24 Unknown History (Jardiance) meloxicam 7.5 mg tablet 7.5 mg PO DAILY 05/28/24 Unknown History mupirocin 2 % topical ointment 1 applic topical TID 05/28/24 Unknown History Allergy/AdvReac Type Severity Reaction Status Date / Time iodine Allergy Swelling Verified 05/28/24 19:28 milk AdvReac Severe Abd Verified 05/28/24 19:28 cramps/diarrhea Penicillins AdvReac Mild PT UNSURE Verified 05/28/24 19:28 OF REACTION Surgical History History of tonsillectomy History of appendectomy History of cholecystectomy Social History household members: none Smoking Status: Never smoker alcohol intake: never substance use type: does not use ROS ROS ED Constitutional Constitutional ED: Denies chills, fever(s) or subjective Eyes Eyes: Denies blurry vision, change in vision or diplopia ENT ENT ED: Denies ear pain, rhinorrhea or sore throat Cardiovascular Cardiovascular: Denies chest pain, palpitations, paroxysmal nocturnal dyspnea or racing heartbeat Respiratory/Chest Respiratory/Chest: Denies cough, dyspnea, dyspnea on exertion or paroxysmal nocturnal dyspnea Gastrointestinal Gastrointestinal: Denies abdominal pain, nausea or vomiting Genitourinary Genitourinary ED: Denies dysuria, hematuria or urinary frequency Musculoskeletal Musculoskeletal: Denies back pain or neck pain Neurologic Neurologic: Reports paresthesias; Denies headache(s) Psychiatric Psychiatric: Denies anxiety or depression Hematologic/Lymphatic Hematologic/Lymphatic: Denies easy bleeding or easy bruising EXAM Physical Exam Const Vital Signs: 05/28/24 19:28 05/28/24 19:46 05/28/24 19:46 Temperature 97 F L Temperature Source Temporal Pulse Rate 99 75 Respiratory Rate 22 H 21 H Blood Pressure 153/55 H 148/79 H Blood Pressure Mean 87 102 Pulse Ox 96 97 95 Oxygen Delivery Method Room Air Room Air Room Air 05/28/24 20:01 Temperature Temperature Source Pulse Rate 61 Respiratory Rate 18 Blood Pressure 124/57 H Blood Pressure Mean 79 Pulse Ox 98 Oxygen Delivery Method Room Air Positive well nourished and well developed Constitutional Narrative: BMI is greater than 30 General Appearance ED: well developed and NAD HEENT Reports moist mucous membranes atraumatic Nose: other Other Details: Nares patent. Posterior pharynx is normal. No deviation with protrusion Eyes PERRL and EOMs intact bilaterally Eyes Narrative: There is no nystagmus. There is no visual field cut General Eye ED: Negative for pale conjunctiva or scleral icterus Neck no lymphadenopathy, supple and no JVD Chest Wall inspection of chest normal and palpation of chest normal Resp normal respiratory effort and clear to auscultation bilaterally Cardio no murmurs GI normal to inspection, nondistended, normoactive bowel sounds, soft to palpation, non-tender, non-distended and no masses Back/Spine no CVA tenderness Extremity normal to inspection General Extremety ED: Yes edema; Negative for deformity General Extremity: edema; Negative for deformity Neuro oriented x3, CN's II-XII intact bilaterally and No no sensory deficits noted [place] Coma Scale: document GCS findings Spontaneous Obeys Commands Oriented 15 Motor Exam: Negative for strength 5/5 throughout Skin no wounds Lesions: no lesions Rashes: no rashes NIHSS NIHSS Initial: 1a Level of Consciousness: 0 1b LOC Questions (Score 2 if aphasic/stupor): 0 1c LOC Commands (Only score 1st attempt): 0 2 Best Gaze (If aphasic, use reflexive mvmts.): 0 3 Visual: 0 4 Facial Palsy: 0 5 Motor Arm Right (UN = amputation/fusion): 1 5 Motor Arm Left: 0 6 Motor Leg Right: 0 6 Motor Leg Left: 0 7 Limb ataxia (Only + if out of proportion): 0 8 Sensory (Aphasia/stupor=0 or 1, coma=2): 1 9 Best Language: 0 10 Dysarthria (mute, coma=2, intubated=UN): 0 11 Extinction and Inattention (only scored if +): 0 Total Score: 2 MDM MDM MDM Narrative Medical decision making narrative: Patient presents with strokelike symptoms. Patient's old records were reviewed. Will check BGT to make sure he is not hypoglycemic. Appropriate workup was initiated for stroke. Patient had anaphylactic reaction and was told by ear machine operator after cardiac cath he should never had contrast again because I ma y . History & Record Review Discussion w/independent historian: Patient Lab Data Attestation: I reviewed the patient's lab results. Lab results narrative: CBC is unremarkable. BMP reveals elevated creatinine to 1.47 with an estimated GFR 49. Glucose is elevated 175 with a normal CO2 anion gap. Labs: Laboratory Results - last 24 hr 05/28/24 19:29 WBC 9.9 RBC 5.33 Hgb 14.9 Hct 45.7 MCV 85.7 MCH 28.0 MCHC 32.6 RDW Std Deviation 40.7 RDW Coeff of Tyesha 13.2 Plt Count 234 MPV 10.0 Immature Gran % (Auto) 0.700 Neut % (Auto) 62.4 Lymph % (Auto) 26.4 Sublette % (Auto) 8.6 Eos % (Auto) 1.5 Baso % (Auto) 0.4 Absolute Neuts (auto) 6.2 Absolute Lymphs (auto) 2.60 Nucleated RBC % 0 PT 13.1 INR 1.0 APTT 23.6 L Sodium 141 Potassium 3.9 Chloride 109 H Carbon Dioxide 27.0 Anion Gap 5 BUN 44 H Creatinine 1.47 H Estim Creat Clear Calc 43.85 Est GFR (MDRD) Af Amer 59 L Est GFR (MDRD) Non-Af 49 L BUN/Creatinine Ratio 29.9 H Glucose 175 H Calcium 9.1 Troponin I High Sens 14 POC Glucose 172 H Radiography Chest X-Ray - ED: 1 View and Read by ED Physician (Chest x-ray shows chronic changes. There is no cardiomegaly, infiltrate. There is no abnormality osseous structures.) Diagnostic Testing: Clinical Impression(s) from Imaging Studies Brain CT 05/28/24 19:31 IMPRESSION: Chronic involutional changes of the brain. Electronically Signed: Pablo Guerra MD at 19:56 EST Reading Location ID and State: [facility] / [place] Tel , Service support , ADDENDUM: 05/28/242006 IMPRESSION: Chronic involutional changes of the brain. N.B. : The above Results were Read Back by Pablo Guerra MD to Milton Moran MD, and understanding confirmed on 05/28/2024 20:00:09 (ET). Electronically Signed: Pablo Guerra MD at 19:56 EST Reading Location ID and State: [facility] / [place] Tel , Service support , ADDENDUM: 05/28/242007 IMPRESSION: undefined EKG Initial EKG: Attestation: I personally reviewed and interpreted this EKG as follows: Interpretation: Sinus Bradycardia (Rate is 59. Is not junctional as the computer is reading. Kouts to left. There is incomplete right bundle jourdan block. Question of LVH. AK interval is normal. QRS duration is 106 ms. QT duration 374 ms. There is no acute ischemic changes noted.) Management Discussion w/another healthcare provider: Hospitalist, [employer] ([facility] neurologist. Patient declined TNK. Patient has a minor stroke in my opinion.) and Radiologist Stroke Documentation Questions Stroke Team Activated: Yes Reviewed Inclusion/Exclusion criteria: Yes IV Thrombolytic Administered: No (Low score and doubt LVO and with history of anaphylaxis to contrast CTA not) Risks, Benefits, Alternatives Discussed: No Discharge Plan Triage Chief Complaint: Stroke Alert ED Provider: Milton Moran Dx/Rx/DC Orders Primary Care Provider: Demetris Fuentes
[2024-05-28 19:39] LABS: Absolute Neutrophil Count 6.2 X10^3/uL (2.0-7.7); Basophil# 0.04 X10^3/uL; Basophil% 0.4 % (0-1); Eosinophil# 0.15 X10^3/uL; Eosinophils% 1.5 % (0-5); Hematocrit 45.7 % (40-54); Hemoglobin 14.9 g/dL (13.0-16.5); Lymphocyte % 26.4 % (19-41); Mean Corp Hgb Conc 32.6 g/dL (32-36); Mean Corpuscular Volume 85.7 fL (80-94); Monocyte# 0.85 X10^3/uL; Monocyte% 8.6 % (0-10); NRBC Flagged by Analyzer 0 % (0-5); Neutrophil # 6.15 X10^3/uL (2.7-7.7); Neutrophil % 62.4 % (47-70); Platelet Count 234 K/mm3 (150-450); RBC Distribution Width CV 13.2 % (11.6-14.6); RBC Distribution Width SD 40.7 fl (35.1-43.9); Red Blood Count 5.33 M/mm3 (4.6-6.2); White Blood Count 9.9 K/mm3 (4.4-11.0)
[2024-05-28 19:47] LABS: Bedside Glucose 172 mg/dL (74-106)
[2024-05-28 20:03] LABS: Prothrombin Time (Protime)PT. 13.1 SECONDS (11.7-14.9)
--- NOTE | 2024-05-28 20:03 | PCM.HP.STD ---
HPI - General General Date of Admission: 05/28/24 Date of Service: 05/28/24 Chief Complaint: Strokelike symptoms HPI Narrative PHILLIP ANGEL, is a 83 M who presented to [facility] ED on 05/28/2024 with strokelike symptoms. Patient presented with acute onset right arm weakness and numbness/tingling. Has history of 2 remote CVAs with only residual deficit reportedly being balance issues with walking. Stroke alert was called for him on arrival. NIHSS score of 2 for right arm motor and right arm sensory. CT brain was unremarkable. Patient was hemodynamically stable on room air. Labs were largely unremarkable. EKG was unremarkable. Was evaluated by [facility] teleneurology who noted that his presentation seemed most consistent with acute stroke. Hospitalist was then contacted for admission. I saw the patient at bedside in the ED, son was present. Patient was sitting up comfortably in bed and in no acute distress. He reported continued ongoing right hand weakness with some numbness and tingling, though this had improved since arrival to the ED. He denied any other weakness or numbness/tingling. Patient lives at home by himself and uses a wheelchair for ambulation. His son does live close by and goes over to help as needed. Patient has required placement in the TCU at multiple points in the past and had a good experience there. Patient reports taking his home medications as prescribed recently. Denies any recent illnesses. Currently denies any other acute pain or discomfort. Will be admitted for further management. [facility] Medical History Lactose intolerance Debility Bilateral edema of lower extremity Osteoarthritis Stroke/cerebrovascular accident Hypothyroid High cholesterol Diabetes Hypertension Home Medications ?Medication ?Instructions ?Recorded ?Last Taken ?Type aspirin 325 mg tablet 325 mg PO DAILY@0800 HEALTH 08/20/16 11/20/23 History MAINTENANCE atenolol 25 mg tablet 25 mg PO QHS BP 08/20/16 11/19/23 22:55 History atorvastatin 40 mg tablet 40 mg PO QHS CHOLESTEROL 08/20/16 11/19/23 22:55 History levothyroxine 75 mcg tablet 75 mcg PO DAILY THYROID 08/20/16 11/20/23 05:00 History nitroglycerin 0.4 mg sublingual 0.4 mg sublingual Q5M PRN Chest 08/20/16 Unknown History tablet Pain insulin glargine-yfgn 100 unit/mL 27 unit subcut QHS Diabetes 12/19/22 11/19/23 23:25 History (3 mL) subcutaneous pen insulin lispro 100 unit/mL 9 unit subcut TID Diabetes 12/19/22 11/20/23 History subcutaneous pen (Humalog KwikPen (U-100) Insulin) gabapentin 300 mg capsule 300 mg PO TID PRN Nerve Pain 11/16/23 Unknown History glucosamine-chondroitin 250 mg-200 2 tab PO TID Supplement 11/16/23 Unknown History mg tablet (Osteo Bi-Flex) losartan 100 mg tablet 100 mg PO DAILY BP 11/16/23 11/20/23 08:10 History omega 9-wus-yte-fish oil 1,200 mg 1 cap PO BID Supplement 11/16/23 11/20/23 History (144 mg-216 mg) capsule (Fish Oil) acetaminophen 500 mg tablet 1,000 mg (2 x 500 mg) PO Q6H PRN 12/07/23 Unknown Rx PRN Pain Score 1-10 #0 tabs furosemide 40 mg tablet 40 mg PO DAILY 30 days #30 tabs 12/07/23 Unknown Rx empagliflozin 25 mg tablet 25 mg PO DAILY 05/28/24 Unknown History (Jardiance) meloxicam 7.5 mg tablet 7.5 mg PO DAILY 05/28/24 Unknown History mupirocin 2 % topical ointment 1 applic topical TID 05/28/24 Unknown History Allergy/AdvReac Type Severity Reaction Status Date / Time iodine Allergy Swelling Verified 05/28/24 19:28 milk AdvReac Severe Abd Verified 05/28/24 19:28 cramps/diarrhea Penicillins AdvReac Mild PT UNSURE Verified 05/28/24 19:28 OF REACTION Surgical History History of tonsillectomy History of appendectomy History of cholecystectomy Social History household members: none Smoking Status: Never smoker alcohol intake: never substance use type: does not use ROS Constitutional Constitutional: Denies chills, fatigue, fever(s) or weakness Eyes Eyes: Denies blurry vision or change in vision Cardiovascular Cardiovascular: Denies chest pain or palpitations Respiratory/Chest Respiratory/Chest: Denies cough or shortness of breath at rest Gastrointestinal Gastrointestinal: Denies abdominal pain, constipation, diarrhea, nausea or vomiting Musculoskeletal Musculoskeletal: Denies arthralgias or myalgias Neurologic Neurologic: Reports numbness, paresthesias and tingling; Denies abnormal speech, confusion, disequilibrium, dizziness, focal weakness, headache(s) or tremor(s) Vital Signs Vital Signs Vital Signs: 05/28/24 19:28 05/28/24 19:46 05/28/24 19:46 Temperature 97 F L Temperature Source Temporal Pulse Rate 99 75 Respiratory Rate 22 H 21 H Blood Pressure 153/55 H 148/79 H Blood Pressure Mean 87 102 Pulse Ox 96 97 95 Oxygen Delivery Method Room Air Room Air Room Air Weight Weight: 111.5 kg Body Mass Index (BMI) 39.6 Physical Exam Const alert, oriented x3 and no apparent distress Constitutional Narrative: Elderly male, obese, somewhat unkempt appearing, otherwise sitting up comfortably in bed, answering questions appropriately, in no acute distress. General Appearance: cooperative and comfortable HEENT normocephalic, head/scalp atraumatic, hearing grossly normal bilaterally, nasal mucous membranes and turbinates normal and moist oral mucous membranes Eyes PERRL, EOMs intact bilaterally and conjunctivae normal Neck full ROM Chest inspection of chest normal Resp normal respiratory effort, normal air movement, no use of accessory muscles and clear to auscultation bilaterally Cardio regular rate, regular rhythm, no murmurs and peripheral pulses 2+ throughout GI normal to inspection, nondistended, normoactive bowel sounds, soft to palpation, non-tender and non-distended Back/Spine normal ROM Extremity normal to inspection, full ROM and no pedal edema Skin no rashes or lesions noted Neuro oriented x3 and CN's II-XII intact bilaterally Neuro Narrative: Strength 4/5 in right hand. Generalized weakness in bilateral lower extremities. Speech: speech normal Psych mental status grossly normal Results Lab / Micro Data 05/28/24 19:29 05/28/24 19:29 Labs: Laboratory Results - last 24 hr 05/28/24 19:29: WBC 9.9, RBC 5.33, Hgb 14.9, Hct 45.7, MCV 85.7, MCH 28.0, MCHC 32.6, RDW Std Deviation 40.7, RDW Coeff of Tyesha 13.2, Plt Count 234, MPV 10.0, Immature Gran % (Auto) 0.700, Neut % (Auto) 62.4, Lymph % (Auto) 26.4, Waldo % (Auto) 8.6, Eos % (Auto) 1.5, Baso % (Auto) 0.4, Absolute Neuts (auto) 6.2, Absolute Lymphs (auto) 2.60, Nucleated RBC % 0, POC Glucose 172 H Imaging Radiology Impression Brain CT 05/28/24 19:31 IMPRESSION: Chronic involutional changes of the brain. Electronically Signed: Pablo Guerra MD at 19:56 EST Reading Location ID and State: [facility] / [place] Tel , Service support , Assessment & Plan Assessment/Plan (1) Stroke/cerebrovascular accident: (2) Debility: PLAN: Plan Patient is an 83-year-old male who presented [facility] ED on 05/28/24 with strokelike symptoms. 1. Suspected acute CVA, prior history of remote CVAs ? Admit under inpatient status to PCU. Teleneurology consulted. Orders placed per stroke protocol order set. CT head negative. MRI brain without contrast ordered. Not able to obtain CTA head/neck given contrast allergy noted below. Continue home full-strength aspirin and atorvastatin. Lipid panel, A1c and TSH ordered. Echo ordered. Holding home atenolol, losartan and Lasix for permissive hypertension. 2. Acute on chronic debility ? PT/OT/case management consulted. Patient lives at home alone, son lives nearby to help out. Uses wheelchair at baseline for chronic bilateral knee pain and balance issues from prior strokes. Has gone to TCU after previous hospitalizations (most recently in December of this year) and had a good experience, would be agreeable to going there on this discharge if needed as well. 3. Severe contrast allergy ? Patient noted this on admission. Contrast will need to be avoided. Chronic medical conditions: ? Obesity: BMI 38 on admit. Complicates hospital course, care and prognosis. ? Type 2 diabetes mellitus with neuropathy: Blood glucose 175 on admit. A1c ordered. Will treat with reduced doses of Lantus 22 units at night and sliding scale insulin with meals, adjust as needed. Continue home gabapentin. ? Nonobstructive CAD, hypertension, hyperlipidemia: Continue home full-strength aspirin and statin as above. Holding home atenolol, Lasix and losartan as noted above. ? Hypothyroidism: TSH ordered. Continue home Synthroid. ? Osteoarthritis: Holding home Mobic daily. Treat with Tylenol as needed. ? CKD stage IIIa: Creatinine 1.47 on admit, at baseline. DVT prophylaxis: SCDs CODE STATUS: DNR CCA, DNI Expected disposition: Home with home health care versus SNF, 2 to 3 days Total clinical time spent by myself addressing the patient's medical issues, reviewing all the data, and collaborating with patient's care team: 75 minutes. Charges/Coding Visit Charges Inpatient E&M: 54814 Init Hosp L3
[2024-05-28 20:05] LABS: Partial Thromboplast Time 23.6 Seconds (24.1-36.2)
[2024-05-28 20:11] LABS: Anion Gap 5 (5-15); BUN 44 mg/dL (7-18); BUN/Creat Ratio 29.9 RATIO (10-20); Calcium,Total 9.1 mg/dL (8.5-10.1); Chloride 109 mmol/L (98-107); Creatinine, Serum 1.47 mg/dL (0.70-1.30); EST Glomerular Filtration Rate 49 mL/min (>60); Est Glom Filt Rate - Afr Amer 59 mL/min (>60); Estimated Creatinine Clearance 43.85 ml/min; Glucose 175 mg/dL (74-106); Potassium 3.9 mmol/L (3.5-5.1); Sodium Level 141 mmol/L (136-145); Troponin-I HS 14 pg/mL (3.0-78.0)
--- NOTE | 2024-05-28 20:25 | RAD_ITS ---
STUDY: X-RAY CHEST REASON FOR EXAM: Male, 83 years old. Neuro deficit, acute, stroke suspected TECHNIQUE: Single frontal view of the chest. COMPARISON: November 16, 2023 FINDINGS: Chronic Right lower lobe opacity unchanged.. Elevated right hemidiaphragm. There is no demonstrated pleural abnormality. Normal size heart. Normal mediastinum and nghia. Normal visualized pulmonary arteries. Normal visualized aortic arch and descending thoracic aorta. Normal visualized thoracic spine. Normal visualized ribs, clavicles, and shoulders. There is no demonstrated abnormality of the visualized soft tissue structures of the upper abdomen. RAD/Chest 1 View IMPRESSION: Right lower lobe opacity unchanged possibly representing scarring. Clinical correlation required. PA and lateral may be helpful if clinically warranted. Electronically Signed: Pablo Guerra MD at 21:15 EST ,
--- NOTE | 2024-05-28 20:41 | MRI_ITS ---
EXAM: MR HEAD WITHOUT INTRAVENOUS CONTRAST CLINICAL INDICATION: eval for CVA, RT ARM WEAKNESS TECHNIQUE: Multiplanar and multisequence MR images of the brain were obtained without intravenous contrast. COMPARISON: CT head without contrast 12/19/2022. MRI brain without contrast 07/07/2022. FINDINGS: BRAIN AND EXTRA-AXIAL SPACES: No diffusion restriction to suspect acute or subacute ischemic infarct. Old lacunar cystic infarct in the subcortical white matter of the posterior left superior frontal gyrus. T2 FLAIR hyperintensity foci in the white matter of both cerebral hemispheres are chronic white matter ischemic changes. They are confluent in the forceps major. No intra- or extra-axial hemorrhage. No intracranial mass or mass effect. Posterior fossa structures are unremarkable. Ventricles are appropriate for age. No hydrocephalus. Basal cisterns are patent. SELLA: Unremarkable. Normal sella turcica, pituitary gland, infundibular stalk, optic chiasm and hypothalamus. AUDITORY SYSTEM: Unremarkable. The internal auditory canals are patent. BONES/JOINTS: Unremarkable. No discrete lytic or blastic abnormalities. SINUSES: Unremarkable as visualized. Clear. MASTOID AIR CELLS: Unremarkable as visualized. Clear. ORBITS: Unremarkable as visualized. Both globes, extraocular muscles, optic nerves and retrobulbar fat appear unremarkable. VASCULATURE: Unremarkable as visualized. Normal flow voids in the major intracranial circulation. MRI/Brain without Contrast IMPRESSION: 1. No MRI evidence of acute or subacute ischemic infarct or acute intracranial abnormality. 2. Chronic white matter ischemic changes in both cerebral hemispheres, confluent in the forceps major. 3. 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 4. No other additional findings or changes. Electronically Signed: Poli Lara MD at 12:14 EST ,
--- NOTE | 2024-05-28 21:17 | ECHOCS_ITS ---
Reason For Study: TIA/CVA Procedure This was a 2D Doppler, Color Flow transthoracic echocardiogram. The study was technically difficult. Due to body habitus. Contrast injection was performed. Exam performed portable in patient room. Left Ventricle Normal LV size. Mild concentric left ventricular hypertrophy. The left ventricular ejection fraction is 65 %. Stage 1 diastolic dysfunction. Right Ventricle Normal right ventricle. Atria The left atrium is mildly enlarged. Normal right atrium. Mitral Valve Trivial mitral valve insufficiency. Tricuspid Valve The tricuspid valve is not well visualized. Aortic Valve The aortic valve is not well visualized. There is no aortic stenosis. No aortic valve insufficiency. Pulmonic Valve The pulmonic valve is not well visualized. Great Vessels Normal sized aortic root. Pericardium/Pleural No pericardial effusion. Medication Diluted definity 3.0ml given slow IV push to enhance endocardial definition. MMode/2D Measurements & Calculations LVIDd: 5.3 cm IVSd: 1.2 cm Ao root diam: 3.4 cm LVIDs: 4.1 cm LVPWd: 1.2 cm RVDd: 3.2 cm FS: 23.6 % LAV(MOD-bp): 57.8 ml LVAd ap4: 33.8 cm2 SV(MOD-sp4): 65.9 ml LAV(MOD-bp) Indexed: 26.5 ml/m2 LVLd ap4: 9.0 cm SI(MOD-sp4): 30.2 ml/m2 LAV(MOD-sp2): 50.7 ml EDV(MOD-sp4): 103.9 ml LAV(MOD-sp4): 65.6 ml EDV(sp4-el): 107.4 ml LVAs ap4: 18.6 cm2 LVLs ap4: 8.0 cm ESV(MOD-sp4): 38.0 ml ESV(sp4-el): 36.9 ml EF(MOD-sp4): 63.4 % EF(sp4-el): 65.6 % SV(sp4-el): 70.5 ml LA A4 area: 21.2 cm2 LA dimension(2D): 3.9 cm RA A4 area: 15.6 cm2 TAPSE: 2.1 cm Time Measurements MV dec time: 0.27 sec Doppler Measurements & Calculations MV E max marcio: 46.8 cm/sec Lat Peak E' Marcio: 10.8 cm/sec Med Peak E' Marcio: 7.0 cm/sec MV A max marcio: 71.2 cm/sec E/E' lat: 4.4 E/E' med: 6.7 MV E/A: 0.66 MV V2 max: 99.5 cm/sec MV P1/2t max marcio: 81.6 cm/sec Ao V2 max: 137.6 cm/sec MV max P.0 mmHg MV P1/2t: 82.4 msec Ao max P.6 mmHg MV V2 mean: 44.8 cm/sec MV dec slope: 290.3 cm/sec2 Ao V2 mean: 89.7 cm/sec MV mean P.0 mmHg MVA(P1/2t): 2.7 cm2 Ao mean P.6 mmHg MV V2 VTI: 25.9 cm Ao V2 VTI: 30.2 cm AV (velocity ratio): 0.59 LV V1 max: 82.3 cm/sec PA V2 max: 79.0 cm/sec LV V1 max P.7 mmHg LV V1 mean P.4 mmHg LV V1 mean: 54.6 cm/sec LV V1 VTI: 17.8 cm ECHO/Echo Complete W/ Contrast Interpretation Summary Technically difficult study with suboptimal images. Mild concentric left ventricular hypertrophy. The left ventricular ejection fraction is 65 %. Stage 1 diastolic dysfunction. The left atrium is mildly enlarged. Ordering Physician: Christian Prater Referring Physician: Demetris Fuentes Performed By: Elina Underwood, KAMILAH, RVT
[2024-05-28] MEDS: Insulin Glargine-YFGN 100 UNIT/ML Pen 22 UNIT SC (23:26)
[2024-05-28] MEDS: Atorvastatin Calcium 40 MG Tablet PO (23:27)
[2024-05-28] MEDS: Gabapentin 300 MG Capsule PO (23:27)
[2024-05-28] MEDS: Acetaminophen 325 MG Tablet 650 MG PO (23:30)
[2024-05-28 23:56] LABS: Bedside Glucose 140 mg/dL (74-106)
[2024-05-29] VITALS (10 sets, daily range): BP systolic 120–157; BP diastolic 56–74; PULSE 57–73; RESP 16–18; TEMP 36.1–36.7; O2SAT 93–98; BMI 38.4
[2024-05-29 06:08] LABS: Hematocrit 41.5 % (40-54); Hemoglobin 13.1 g/dL (13.0-16.5); Mean Corp Hgb Conc 31.6 g/dL (32-36); Mean Corpuscular Hgb 27.4 pg (27.0-32.0); Mean Corpuscular Volume 86.8 fL (80-94); Mean Platelet Vol. 10.2 fl (6.2-12.0); Platelet Count 213 K/mm3 (150-450); RBC Distribution Width CV 13.4 % (11.6-14.6); RBC Distribution Width SD 42.8 fl (35.1-43.9); Red Blood Count 4.78 M/mm3 (4.6-6.2); White Blood Count 7.4 K/mm3 (4.4-11.0)
[2024-05-29] MEDS: Levothyroxine 75 MCG Tablet PO (06:45)
[2024-05-29] MEDS: Gabapentin 300 MG Capsule PO ×3 (06:45→22:46)
[2024-05-29 06:54] LABS: Anion Gap 5 (5-15); BUN 41 mg/dL (7-18); BUN/Creat Ratio 33.3 RATIO (10-20); Calcium,Total 8.6 mg/dL (8.5-10.1); Chloride 112 mmol/L (98-107); Cholesterol 104 mg/dL (200); Creatinine, Serum 1.23 mg/dL (0.70-1.30); EST Glomerular Filtration Rate 60 mL/min (>60); Est Glom Filt Rate - Afr Amer 72 mL/min (>60); Estimated Creatinine Clearance 53.23 ml/min; Glucose 125 mg/dL (74-106); High Density Lipoprotein 36 mg/dL; Potassium 3.5 mmol/L (3.5-5.1); Sodium Level 141 mmol/L (136-145); Triglycerides 137 mg/dL; Very Low Density Lipoprotein 27 mg/dL (5-40)
[2024-05-29 07:07] LABS: Bedside Glucose 128 mg/dL (74-106)
[2024-05-29 08:16] LABS: Hemoglobin A1c 11.3 % (3.8-5.6)
[2024-05-29] MEDS: LORazepam 2 MG/ML Syringe 0.5 MG IV (09:14)
[2024-05-29] MEDS: Aspirin 325 MG Tablet PO (09:15)
[2024-05-29] MEDS: 0.9% Saline Lock 10 ML Syringe IV (09:15)
--- NOTE | 2024-05-29 09:30 | WOUNDNOTE ---
Pt is currently getting echo and will be heading down for MRI. will assess legs when patient returns.
--- NOTE | 2024-05-29 11:00 | CASEMGMT ---
RN CM Face to Face with patient for initial transition planning/care coordination assessment. RN CM introduced self and role at [facility]. Patient lying in bed, alert and oriented. Patient willing to participate in assessment and is able to answer all questions appropriately. Care providers, pharmacy, and demographics verified. 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 Patient states he is independent for self care, son helps with showering. Transportation: family DME/HHC: Patient has shower chair, raised toilet, grab bars, hip kit, walker, wheelchair, glucometer, and scooter. Patient has been to TCU in the past. Patient is active with [facility]. Patient wishes to RU or TCU as he feels he is unsafe to discharge home. Patient declined lists for RU or SNF. Patient states he has no further needs or concerns at this time. CM to follow for discharge planning needs that may arise. Disposition Plan: RU vs TCU pending acceptance. Deya IRVIN, RN, CM
[2024-05-29] MEDS: FLU VACCINE **HIGH DOSE** TV 24-25 180 MCG/0.5 ML SYRINGE IM (11:14)
--- NOTE | 2024-05-29 11:23 | CASEMGMT ---
Per RN CM patient is interested in going to Acute Rehab. ROSIO made initial referral. Taisha will review once therapy notes are in the computer. Debra MONTEJO
--- NOTE | 2024-05-29 11:25 | WOUNDNOTE ---
wound photo: bilateral lower legs
--- NOTE | 2024-05-29 11:45 | CASEMGMT ---
SW completed a PHQ 9 with patient as he may have had a Stroke. Patient scored a 3 which indicates minimal depression. Patient denied need for any counseling resources. SW did tell patient that SW did make a referral to Acute Rehab. Once SW gets an answer SW can let him know. Debra Centeno TRANSFORMATION COACH GUSTABO
[2024-05-29 11:56] LABS: Bedside Glucose 117 mg/dL (74-106)
--- NOTE | 2024-05-29 12:39 | STROKE.CONS ---
Assessment and Plan: Stroke Assessment/Plan PHILLIP ANGEL, is a 83 M with CAD, DM, HLD, HTN, hx of strokes and cervical spine spondylosis who presents with right sided weakness. He was fine at 630pm while being wheeling himself to the table and felt a funny feeling and then shortly after could not use his right side to well. CT neg. No cta given iodine allergy. MRI briain neg for acute stroke. His right side appears weak but no drift he is just not able to lift as high as left. - I dont think this is a stroke most likely a cervical spine issues - Recommend a cervical spine mri and MRA of head and neck. Cont home meds. Cont cv risk factor optimization. HPI Consult Data Date of Consult: 05/29/24 HPI Narrative HPI Narrative: PHILLIP ANGEL is a 83 M with CAD, DM, HLD, HTN, hx of strokes and cervical spine spondylosis who presents with right sided weakness. He was fine at 630pm while being wheeling himself to the table and felt a funny feeling and then shortly after could not use his right side to well. CT neg. No cta given iodine allergy. MRI briain neg for acute stroke. His right side appears weak but no drift he is just not able to lift as high as left. I dont think this is a stroke most likely a cervical spine issues. Recommend a cervical spine mri and MRA of head and neck. Cont home meds. Cont cv risk factor optimization. [facility] Medical History Lactose intolerance Debility Bilateral edema of lower extremity Osteoarthritis Stroke/cerebrovascular accident Hypothyroid High cholesterol Diabetes Hypertension Home Medications ?Medication ?Instructions ?Recorded ?Last Taken ?Type aspirin 325 mg tablet 325 mg PO DAILY@0800 HEALTH 08/20/16 11/20/23 History MAINTENANCE atenolol 25 mg tablet 25 mg PO QHS BP 08/20/16 11/19/23 22:55 History atorvastatin 40 mg tablet 40 mg PO QHS CHOLESTEROL 08/20/16 11/19/23 22:55 History levothyroxine 75 mcg tablet 75 mcg PO DAILY THYROID 08/20/16 11/20/23 05:00 History nitroglycerin 0.4 mg sublingual 0.4 mg sublingual Q5M PRN Chest 08/20/16 Unknown History tablet Pain insulin glargine-yfgn 100 unit/mL 27 unit subcut QHS Diabetes 12/19/22 11/19/23 23:25 History (3 mL) subcutaneous pen insulin lispro 100 unit/mL 9 unit subcut TID Diabetes 12/19/22 11/20/23 History subcutaneous pen (Humalog KwikPen (U-100) Insulin) gabapentin 300 mg capsule 300 mg PO TID PRN Nerve Pain 11/16/23 Unknown History glucosamine-chondroitin 250 mg-200 2 tab PO TID Supplement 11/16/23 Unknown History mg tablet (Osteo Bi-Flex) losartan 100 mg tablet 100 mg PO DAILY BP 11/16/23 11/20/23 08:10 History omega 7-ldy-jau-fish oil 1,200 mg 1 cap PO BID Supplement 11/16/23 11/20/23 History (144 mg-216 mg) capsule (Fish Oil) acetaminophen 500 mg tablet 1,000 mg (2 x 500 mg) PO Q6H PRN 12/07/23 Unknown Rx PRN Pain Score 1-10 #0 tabs furosemide 40 mg tablet 40 mg PO DAILY 30 days #30 tabs 12/07/23 Unknown Rx empagliflozin 25 mg tablet 25 mg PO DAILY 05/28/24 Unknown History (Jardiance) meloxicam 7.5 mg tablet 7.5 mg PO DAILY 05/28/24 Unknown History mupirocin 2 % topical ointment 1 applic topical TID 05/28/24 Unknown History Allergy/AdvReac Type Severity Reaction Status Date / Time iodine Allergy Swelling Verified 05/28/24 19:28 milk AdvReac Severe Abd Verified 05/28/24 19:28 cramps/diarrhea Penicillins AdvReac Mild PT UNSURE Verified 05/28/24 19:28 OF REACTION Surgical History History of tonsillectomy History of appendectomy History of cholecystectomy Social History household members: none Smoking Status: Never smoker alcohol intake: never substance use type: does not use Vital Signs Vital Signs Vital Signs: 05/28/24 19:28 05/28/24 19:46 05/28/24 19:46 Temperature 97 F L Temperature Source Temporal Pulse Rate 99 75 Pulse Strength Respiratory Rate 22 H 21 H Respiratory Effort Respiratory Depth Respiratory Pattern Blood Pressure 153/55 H 148/79 H Blood Pressure Mean 87 102 Blood Pressure Source Blood Pressure Position Blood Pressure Location Pulse Ox 96 97 95 Oxygen Delivery Method Room Air Room Air Room Air 05/28/24 20:01 05/28/24 20:15 05/28/24 20:15 Temperature 98.4 F Temperature Source Pulse Rate 61 58 L 58 L Pulse Strength Respiratory Rate 18 20 H 20 H Respiratory Effort Respiratory Depth Respiratory Pattern Blood Pressure 124/57 H 142/71 H 142/71 H Blood Pressure Mean 79 94 91 Blood Pressure Source Blood Pressure Position Blood Pressure Location Pulse Ox 98 94 Oxygen Delivery Method Room Air 05/28/24 20:30 05/28/24 21:00 05/28/24 21:25 Temperature Temperature Source Pulse Rate 63 57 L Pulse Strength Respiratory Rate 16 16 Respiratory Effort Respiratory Depth Respiratory Pattern Blood Pressure 117/57 L 117/58 L Blood Pressure Mean 74 77 Blood Pressure Source Blood Pressure Position Blood Pressure Location Pulse Ox 95 94 96 Oxygen Delivery Method Room Air 05/28/24 21:30 05/28/24 21:32 05/29/24 01:45 Temperature 98.1 F 97.6 F L Temperature Source Oral Oral Pulse Rate 59 L 66 Pulse Strength Respiratory Rate 18 18 Respiratory Effort Normal Non-Labored Respiratory Depth Respiratory Pattern Blood Pressure 128/54 H 120/56 L Blood Pressure Mean 78 77 Blood Pressure Source Monitor Monitor Blood Pressure Position Semi-Fowlers Semi-Fowlers Blood Pressure Location Right Arm Right Arm Pulse Ox 93 97 Oxygen Delivery Method Room Air Room Air 05/29/24 03:35 05/29/24 05:36 05/29/24 07:15 Temperature 98.0 F Temperature Source Oral Pulse Rate 62 Pulse Strength Respiratory Rate 18 Respiratory Effort Normal Respiratory Depth Normal Respiratory Pattern Normal Blood Pressure 138/60 H Blood Pressure Mean 86 Blood Pressure Source Monitor Blood Pressure Position Semi-Fowlers Blood Pressure Location Right Arm Pulse Ox 95 95 Oxygen Delivery Method Room Air Room Air Room Air 05/29/24 07:50 05/29/24 09:16 05/29/24 09:54 Temperature 97.7 F L Temperature Source Oral Pulse Rate 57 L 62 Pulse Strength Normal (2+) Respiratory Rate 18 18 Respiratory Effort Respiratory Depth Respiratory Pattern Blood Pressure 125/59 H 157/70 H Blood Pressure Mean 81 99 Blood Pressure Source Monitor Monitor Blood Pressure Position Semi-Fowlers Supine Blood Pressure Location Right Arm Right Arm Pulse Ox 95 95 Oxygen Delivery Method Room Air Room Air 05/29/24 10:04 05/29/24 10:14 Temperature Temperature Source Pulse Rate 57 L 61 Pulse Strength Respiratory Rate 16 16 Respiratory Effort Respiratory Depth Respiratory Pattern Blood Pressure 138/61 H 130/64 H Blood Pressure Mean 86 86 Blood Pressure Source Monitor Monitor Blood Pressure Position Supine Supine Blood Pressure Location Right Arm Right Arm Pulse Ox 95 95 Oxygen Delivery Method Room Air Room Air Weight Weight: 111.3 kg Body Mass Index (BMI) 38.4 NIHSS NIHSS Nursing Documentation NIHSS Nursing Documentation: NIHSS: Ischemic Stroke/TIA Start: 05/28/24 21:17 Text: For PCU Patients: NIH and Neuro Check every 4 Status: Active hours, PRN and with change in RN caregiver. Freq: [id number] Protocol: Activity Type Activity Date Activity User E-sign Co-sign Detail Recorded Client Recorded Date Recorded By Document 05/29/24 09:15 AMG [id number] 05/29/24 09:17 AMG 05/29/24 09:15 NIH Stroke Scale [NIHSS] A score of 0 is normal or asymptomatic . Total possible score is 42. Inpatient: RN or Physician to activate a stroke alert for onset of new stroke symptoms or with NIHSS increase >/= 3 points. Following change in neurological status, NIHSS will be performed per physician order or more frequently PRN. -1a. Level of Consciousness Alert; keenly responsive -1b. LOC Questions Answers BOTH questions correctly. -1c. LOC Commands Performs both tasks correctly . -2. Best Gaze Normal -3. Visual No visual loss -4. Facial Palsy Normal symmetrical movements -5a. Left Arm No drift; arm holds 90 (or 45 ) degrees for full 10 seconds -5b. Right Arm Drift; arm drifts downward but doesn?t hit the bed -6a. Left Leg No drift; leg holds 30-degree position for full 5 seconds -6b. Right Leg No drift; leg holds 30-degree position for full 5 seconds -7. Limb Ataxia Absent -8. Sensory Mild-to- moderate sensory loss; -9. Best Language No aphasia; normal -10. Dysarthria Normal -11. Extinction and Inattention No abnormality -Total 2 Query Text:A score of 0 is normal or asymptomatic. Total possible score is 42 . ED: Notify Physician for NIHSS increase by > / = 3 points. Inpatient: RN or Physician to activate a stroke alert for NIHSS increase of > / = 3 points. Coma Scale [Assess] -Eye Opening Spontaneous -Motor Obeys Commands -Verbal Oriented [Total] -Coma Scale Total 15 Physical Exam Narrative - General: NAD, pleasant, cooperative, well nourished, well developed - Head/Eyes: Atraumatic, normocephalic, clear cornea, normal sclera/conjunctive - Neuro: ? Mental Status: AAOX4 & following simple commands. ? Speech: Clear and fluent with good repetition, comprehension, & naming. No aphasia or dysarthria ? CN II: Visual styles are full to confrontation. ? CN III, IV, : EOMI, no gaze preference, no nystagmus, no ptosis ? CN V: Facial sensation is intact to light touch throughout. ? CN VII: Face is symmetric with normal eye closure and smile. ? CN VII: Hearing is grossly normal to conversational speech. ? CN IX, X: Palate elevates symmetrically and no uvula deviation ? CN XI: Head turning, and shoulder shrug are intact. ? CN XII: Tongue is midline with normal movements and no atrophy. ? Motor: Able to sustain all limbs but limited elevation of bilateral arms, right greater than left. Left leg can sustain. RLE can lift and sustain but not as high as left. ? Sensation: Normal to light touch bilaterally. Lab / Micro Data 05/29/24 05:07 05/29/24 05:07 Labs: Laboratory Results - last 24 hr 05/28/24 19:29: WBC 9.9, RBC 5.33, Hgb 14.9, Hct 45.7, MCV 85.7, MCH 28.0, MCHC 32.6, RDW Std Deviation 40.7, RDW Coeff of Tyesha 13.2, Plt Count 234, MPV 10.0, Immature Gran % (Auto) 0.700, Neut % (Auto) 62.4, Lymph % (Auto) 26.4, Castro % (Auto) 8.6, Eos % (Auto) 1.5, Baso % (Auto) 0.4, Absolute Neuts (auto) 6.2, Absolute Lymphs (auto) 2.60, Nucleated RBC % 0, PT 13.1, INR 1.0, APTT 23.6 L, Sodium 141, Potassium 3.9, Chloride 109 H, Carbon Dioxide 27.0, Anion Gap 5, BUN 44 H, Creatinine 1.47 H, Estim Creat Clear Calc 43.85, Est GFR (MDRD) Af Amer 59 L, Est GFR (MDRD) Non-Af 49 L, BUN/Creatinine Ratio 29.9 H, Glucose 175 H, Calcium 9.1, Troponin I High Sens 14, TSH 4.380 H, POC Glucose 172 H 05/28/24 23:20: POC Glucose 140 H 05/29/24 05:07: WBC 7.4, RBC 4.78, Hgb 13.1, Hct 41.5, MCV 86.8, MCH 27.4, MCHC 31.6 L, RDW Std Deviation 42.8, RDW Coeff of Tyesha 13.4, Plt Count 213, MPV 10.2, Sodium 141, Potassium 3.5, Chloride 112 H, Carbon Dioxide 24.0, Anion Gap 5, BUN 41 H, Creatinine 1.23, Estim Creat Clear Calc 53.23, Est GFR (MDRD) Af Amer 72, Est GFR (MDRD) Non-Af 60, BUN/Creatinine Ratio 33.3 H, Glucose 125 H, Hemoglobin A1c 11.3 H, Calcium 8.6, Triglycerides 137, Cholesterol 104, LDL Cholesterol 41, VLDL Cholesterol 27, HDL Cholesterol 36 L 05/29/24 06:43: POC Glucose 128 H 05/29/24 11:38: POC Glucose 117 H Imaging Radiology Impression Brain CT 05/28/24 19:31 IMPRESSION: Chronic involutional changes of the brain. Electronically Signed: Pablo Guerra MD at 19:56 EST , ADDENDUM: 05/28/242006 IMPRESSION: Chronic involutional changes of the brain. N.B. : The above Results were Read Back by Pablo Guerra MD to Milton Moran MD, and understanding confirmed on 05/28/2024 20:00:09 (ET). Electronically Signed: Pablo Guerra MD at 19:56 EST Reading Location ID and State: [facility] / [place] Tel , Service support , ADDENDUM: 05/28/242007 IMPRESSION: undefined Chest X-Ray 05/28/24 20:25 IMPRESSION: Right lower lobe opacity unchanged possibly representing scarring. Clinical correlation required. PA and lateral may be helpful if clinically warranted. Electronically Signed: Pablo Guerra MD at 21:15 EST Reading Location ID and State: [address] [place] [address] Tel , Service support , Brain MRI 05/28/24 20:41 IMPRESSION: 1. No MRI evidence of acute or subacute ischemic infarct or acute intracranial abnormality. 2. Chronic white matter ischemic changes in both cerebral hemispheres, confluent in the forceps major. 3. 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 4. No other additional findings or changes. Electronically Signed: Poli Lara MD at 12:14 EST , Active Medications Active Medications Active Medications: Current Medications Generic Name Dose Route Start Last Admin Trade Name Freq PRN Reason Stop Dose Admin Acetaminophen 650 mg 05/28/24 21:17 05/28/24 23:30 Acetaminophen 325 Mg Tablet PO 650 mg Q6H PRN PRN Administration Pain 1-10 Or Fever>100.7 Aspirin 325 mg 05/29/24 08:00 05/29/24 09:15 Aspirin 325 Mg Tablet PO 325 mg DAILY@0800 IMAN Administration Atorvastatin Calcium 40 mg 05/28/24 22:00 05/28/24 23:27 Atorvastatin Calcium 40 Mg Tablet PO 40 mg QHS IMAN Administration Gabapentin 300 mg 05/28/24 22:00 05/29/24 06:45 Gabapentin 300 Mg Capsule PO 300 mg TID IMAN Administration Glucagon 1 mg 05/28/24 21:17 Glucagon 1 Mg/Ml Syringe IM X1 PRN Hypoglycemia Protocol Hydralazine HCl 5 mg 05/28/24 21:17 Hydralazine 20 Mg/Ml Vial IV 05/29/24 21:17 Q30M PRN maintain BP parameters with HR <60 Dextrose 250 mls @ 0 mls/hr 05/28/24 21:17 Dextrose 10%-Water IV .Q0M PRN HYPOGLYCEMIA Protocol As Directed Sodium Chloride 500 mls @ 15 mls/hr 05/28/24 21:56 IV .[id number] PRN Saline Flush Sodium Chloride 500 mls @ 15 mls/hr 05/28/24 21:56 IV .[id number] PRN Additional IVPB Infusion Insulin Glargine 22 unit 05/28/24 22:00 05/28/24 23:26 Insulin Glargine-Yfgn 100 Unit/Ml Pen SC 22 unit QHS IMAN Administration Protocol Insulin Human Lispro 0 unit 05/28/24 22:00 05/29/24 11:41 Insulin Lispro 100 Unit/Ml Insuln.Pen SC Not Given ACHS IMAN Protocol Labetalol HCl 10 - 20 mg 05/28/24 21:17 Labetalol (Prefilled) 20 Mg/4 Ml Vial IV 05/29/24 21:17 Q10M PRN PRN maintain BP parameters with HR >/=60 Levothyroxine Sodium 75 mcg 05/29/24 06:00 05/29/24 06:45 Levothyroxine 75 Mcg Tablet PO 75 mcg 0600 IMAN Administration Lorazepam 0.5 mg 05/29/24 01:08 05/29/24 09:14 Lorazepam 2 Mg/Ml Syringe IV 0.5 mg X1 PRN Administration ANXIETY Melatonin 3 mg 05/28/24 21:17 Melatonin 3 Mg Tablet PO QHS PRN PRN INSOMNIA Ondansetron HCl 4 mg 05/28/24 21:17 Ondansetron 4 Mg/2 Ml Vial IV Q8H PRN PRN NAUSEA/VOMITING Sodium Chloride 10 - 40 ml 05/28/24 21:56 05/29/24 09:15 0.9% Saline Lock 10 Ml Syringe IV 10 ml UD PRN Administration SALINE FLUSH
--- NOTE | 2024-05-29 14:29 | MRI_ITS ---
EXAM: MR CERVICAL SPINE WITHOUT INTRAVENOUS CONTRAST CLINICAL INDICATION: right sided weakness, MRA neck completed as well TECHNIQUE: Multiplanar and multisequence MR images of the cervical spine without intravenous contrast were performed. COMPARISON: MRA neck on the same date. CT cervical spine, 12/19/2022. FINDINGS: VERTEBRAE: See below. SPINAL CORD: Intramedullary spinal cord signal abnormality is present from the level of C3-C4 through the level of C6-C7 at which point it is most severe associated with volume loss in the spinal cord. Compression of the spinal cord at multiple levels. SOFT TISSUES: No significant abnormality. No prevertebral soft tissue swelling. LYMPH NODES: No significant abnormality. There is no cervical adenopathy. SINUSES: Mucosal thickening in the paranasal sinuses. DISCS/SPINAL CANAL/NEURAL FORAMINA: C2-C3: Disc height loss and disc desiccation. Disc herniation centrally and moderate bilateral facet arthrosis. Moderate spinal canal stenosis exacerbated by ligamentum flavum thickening and/or redundancy with abutment of the ventral and dorsal aspect of the spinal cord. Mild bilateral neural foraminal narrowing. C3-C4: Disc height loss and disc desiccation. Central disc herniation superimposed upon a disc bulge. Ligamentum flavum thickening and/or redundancy contributing to severe spinal canal stenosis with impingement of the spinal cord. Moderate bilateral neural foraminal narrowing. Severe spinal canal stenosis. C4-C5: Obliteration of the disc space. Endplate osteophytosis as well as facet and uncovertebral joint arthrosis. Moderate spinal canal stenosis with mild mass effect upon the spinal cord as well as intramedullary signal abnormality at this level. Moderate to severe bilateral neural foraminal narrowing. C5-C6: Disc height loss and disc desiccation. Central disc herniation and ligamentum flavum thickening and/or redundancy. Moderate to severe spinal canal stenosis with mass effect upon the spinal cord and intramedullary signal abnormality. Moderate to severe bilateral neural foraminal narrowing. C6-C7: Central disc herniation. Facet arthrosis and ligamentum flavum thickening with impingement of the spinal cord and severely narrowed spinal canal. Intramedullary signal abnormality. Severe bilateral neural foraminal narrowing in part due to uncovertebral joint arthrosis. C7-T1: Bilateral facet arthrosis. Mild disc bulge. Very mild spinal canal and bilateral neural foraminal narrowing. MRI/Spine Cervical (Routine) IMPRESSION: 1. Intramedullary spinal cord signal abnormality is present from the level of C3-C4 through the level of C6-C7 at which point it is most severe associated with volume loss in the spinal cord. Compression of the spinal cord at multiple levels. 2. Extensive degenerative changes with multilevel spinal canal and neural foraminal stenosis as detailed above. RECOMMENDATIONS: Neurosurgical consultation if not already performed. Electronically Signed: Mo Dow DO at 20:22 EST ,
--- NOTE | 2024-05-29 14:29 | MRI_ITS ---
EXAM: MR ANGIOGRAPHY NECK WITHOUT INTRAVENOUS CONTRAST CLINICAL INDICATION: right sided weakness TECHNIQUE: Routine carotid MR angiogram protocol was performed without intravenous contrast. 3D reconstructions were reviewed. NASCET criteria using the distal ICAs for comparison were used for evaluation of stenoses. COMPARISON: MRA head on the same date. MRI cervical spine on the same date. FINDINGS: RIGHT COMMON CAROTID ARTERY: No significant abnormality. No occlusion or significant stenosis. No dissection. RIGHT INTERNAL CAROTID ARTERY: Approximately 50% stenosis of the right internal carotid artery likely secondary to atherosclerosis just distal to the bifurcation. No dissection. RIGHT EXTERNAL CAROTID ARTERY: No significant abnormality. No occlusion. RIGHT VERTEBRAL ARTERY: No significant abnormality. No occlusion or significant stenosis. No dissection. LEFT COMMON CAROTID ARTERY: No significant abnormality. No occlusion or significant stenosis. No dissection. LEFT INTERNAL CAROTID ARTERY: Less than 50% stenosis of the left internal carotid artery likely secondary to atherosclerosis just distal to the bifurcation. No dissection. LEFT EXTERNAL CAROTID ARTERY: No significant abnormality. No occlusion. LEFT VERTEBRAL ARTERY: No significant abnormality. No occlusion or significant stenosis. No dissection. CAROTID STENOSIS REFERENCE USING NASCET CRITERIA: % ICA stenosis = (1 - narrowest ICA diameter/diameter of distal cervical ICA) x 100. Mild - <50% stenosis. Moderate - 50-69% stenosis. Severe - 70-94% stenosis. Near occlusion - 95-99% stenosis. Occluded - 100% stenosis. MRI/MRA Neck without Contrast IMPRESSION: 1. Less than 50% stenosis of the left internal carotid artery likely secondary to atherosclerosis just distal to the bifurcation. 2. Approximately 50% stenosis of the right internal carotid artery likely secondary to atherosclerosis just distal to the bifurcation. Electronically Signed: Mo Dow DO at 20:24 EST ,
--- NOTE | 2024-05-29 14:34 | MRI_ITS ---
EXAM: MR ANGIOGRAPHY HEAD WITHOUT INTRAVENOUS CONTRAST CLINICAL INDICATION: right sided weakness, compare to CT TECHNIQUE: Routine [place] of [place]/brain 3D time of flight MR angiogram protocol was performed without intravenous contrast. COMPARISON: No relevant prior studies available. FINDINGS: RIGHT INTERNAL CAROTID ARTERY: No significant findings. No significant stenosis at the intracranial/visualized segments. No aneurysm. RIGHT ANTERIOR CEREBRAL ARTERY: No significant abnormality. No occlusion or significant stenosis. Anterior communicating artery is present. No aneurysm. RIGHT MIDDLE CEREBRAL ARTERY: No significant abnormality. No occlusion or significant stenosis. No aneurysm. RIGHT POSTERIOR CEREBRAL ARTERY: No significant abnormality. No occlusion or significant stenosis. No aneurysm. RIGHT VERTEBRAL ARTERY: Normal as visualized. No significant stenosis at the intradural/visualized segments. No aneurysm. LEFT INTERNAL CAROTID ARTERY: No significant findings. No significant stenosis at the intracranial/visualized segments. No aneurysm. LEFT ANTERIOR CEREBRAL ARTERY: No significant abnormality. No occlusion or significant stenosis. Anterior communicating artery is present. No aneurysm. LEFT MIDDLE CEREBRAL ARTERY: No significant abnormality. No occlusion or significant stenosis. No aneurysm. LEFT POSTERIOR CEREBRAL ARTERY: No significant abnormality. No occlusion or significant stenosis. No aneurysm. LEFT VERTEBRAL ARTERY: Normal as visualized. No significant stenosis at the intradural/visualized segments. No aneurysm. BASILAR ARTERY: No significant abnormality. No significant stenosis. No aneurysm. OTHER VASCULATURE: No vascular malformation. BRAIN AND EXTRA-AXIAL SPACES: MRI brain, same date. MRI/MRA Head ONLY without Contrast IMPRESSION: No acute findings in the arteries of the head/brain. Electronically Signed: Mo Dow DO at 20:23 EST ,
--- NOTE | 2024-05-29 14:37 | CHAPLAIN ---
Type of Pastoral Visit _x__ Initial Visit ___ Follow-up Visit ___ On-call Visit ___ General Patient Visit ___ Spiritual Assessment ___ Family Conference ___ Bereavement ___ Rapid Response ___ Code Blue ___ Other (describe below) Pastoral Care Referral From _x__ Patient ___ Family ___ Nurse ___ Physician ___ Position Classification Manager ___ Pouring Crane Operator ___ Other (describe below) Sacrament/Intervention _x__ Active listening ___ Anointing ___ Amish ___ Bereavement ___ Communion ___ Ann exploration ___ ___ Life review _x__ Prayer ___ Reconciliation ___ Sacrament of Sick _x__ Supportive presence ___ Wedding ___ Other (describe below) Pastoral Comments patient gives update on his health and life that is lived alone in his home of 50+ years; pt states that he does not want to move to [place] as some in the family are encouraging; pt [place] almost entire life, and knowing that he is watched by many neighbors who are available to him; pt is not taoism but considers himself to be spiritual with his own beliefs and understandings; pt does welcome prayer and the conversation with this psychology tech over the years of acquaintance
--- NOTE | 2024-05-29 15:19 | CASEMGMT ---
SW let patient know that [facility] cannot take him. Patient would like [facility]. SW made a referral for TCU and they can accept. SW notified patient. Plan: d/c to [facility] under skilled level of care. Debra MONTEJO
[2024-05-29 17:11] LABS: Bedside Glucose 163 mg/dL (74-106)
[2024-05-29] MEDS: LORazepam 1 MG Tablet PO (17:23)
--- NOTE | 2024-05-29 17:41 | PN.HOSP_ITS ---
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 Patient still having significant weakness in his right arm and right leg, he does not feel he can go home and live alone. It appears from the patient's insurance coverage that he would be eligible for skilled care starting this Monday, [facility]. Teleneurology saw the patient today and feels that the patient would benefit from additional imaging studies- MRI of the head and neck was ordered and MRI of the cervical spine was ordered. I tried to have teleneurology call me to discuss this but they did not call me when I asked to be contacted. Objective Data Objective Data Vital Signs: Vital Signs Temp Pulse Resp BP Pulse Ox O2 Del Method 97.6 F L 68 18 132/65 H 93 Room Air 05/29/24 17:08 05/29/24 17:08 05/29/24 17:08 05/29/24 17:08 05/29/24 17:08 05/29/24 17:08 Oxygen Delivery Method Room Air Weight: 111.3 kg Body Mass Index (BMI) 38.4 Intake & Output: Intake and Output for Last 24 Hours 05/27/24 05/28/24 05/29/24 23:59 23:59 23:59 Intake Total 480 / 480 Output Total 700 / 700 Balance -220 / -220 Lab / Micro Data 05/29/24 05:07 05/29/24 05:07 Labs: Laboratory Results - last 24 hr 05/28/24 19:29: WBC 9.9, RBC 5.33, Hgb 14.9, Hct 45.7, MCV 85.7, MCH 28.0, MCHC 32.6, RDW Std Deviation 40.7, RDW Coeff of Tyesha 13.2, Plt Count 234, MPV 10.0, Immature Gran % (Auto) 0.700, Neut % (Auto) 62.4, Lymph % (Auto) 26.4, [place] % (Auto) 8.6, Eos % (Auto) 1.5, Baso % (Auto) 0.4, Absolute Neuts (auto) 6.2, Absolute Lymphs (auto) 2.60, Nucleated RBC % 0, PT 13.1, INR 1.0, APTT 23.6 L, Sodium 141, Potassium 3.9, Chloride 109 H, Carbon Dioxide 27.0, Anion Gap 5, BUN 44 H, Creatinine 1.47 H, Estim Creat Clear Calc 43.85, Est GFR (MDRD) Af Amer 59 L, Est GFR (MDRD) Non-Af 49 L, BUN/Creatinine Ratio 29.9 H, Glucose 175 H, Calcium 9.1, Troponin I High Sens 14, TSH 4.380 H, POC Glucose 172 H 05/28/24 23:20: POC Glucose 140 H 05/29/24 05:07: WBC 7.4, RBC 4.78, Hgb 13.1, Hct 41.5, MCV 86.8, MCH 27.4, MCHC 31.6 L, RDW Std Deviation 42.8, RDW Coeff of Tyesha 13.4, Plt Count 213, MPV 10.2, Sodium 141, Potassium 3.5, Chloride 112 H, Carbon Dioxide 24.0, Anion Gap 5, BUN 41 H, Creatinine 1.23, Estim Creat Clear Calc 53.23, Est GFR (MDRD) Af Amer 72, Est GFR (MDRD) Non-Af 60, BUN/Creatinine Ratio 33.3 H, Glucose 125 H, Hemoglobin A1c 11.3 H, Calcium 8.6, Triglycerides 137, Cholesterol 104, LDL Cholesterol 41, VLDL Cholesterol 27, HDL Cholesterol 36 L 05/29/24 06:43: POC Glucose 128 H 05/29/24 11:38: POC Glucose 117 H 05/29/24 16:48: POC Glucose 163 H Radiography Diagnostic Testing: Radiology Impression Brain CT 05/28/24 19:31 IMPRESSION: Chronic involutional changes of the brain. Electronically Signed: Pablo Guerra MD at 19:56 EST , ADDENDUM: 05/28/242006 IMPRESSION: Chronic involutional changes of the brain. N.B. : The above Results were Read Back by Pablo Guerra MD to Milton Moran MD, and understanding confirmed on 05/28/2024 20:00:09 (ET). Electronically Signed: Pablo Guerra MD at 19:56 EST Reading Location ID and State: [facility] / [place] Tel , Service support , ADDENDUM: 05/28/242007 IMPRESSION: undefined Chest X-Ray 05/28/24 20:25 IMPRESSION: Right lower lobe opacity unchanged possibly representing scarring. Clinical correlation required. PA and lateral may be helpful if clinically warranted. Electronically Signed: Pablo Guerra MD at 21:15 EST Reading Location ID and State: [facility] / [place] Tel , Service support , Brain MRI 05/28/24 20:41 IMPRESSION: 1. No MRI evidence of acute or subacute ischemic infarct or acute intracranial abnormality. 2. Chronic white matter ischemic changes in both cerebral hemispheres, confluent in the forceps major. 3. 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 4. No other additional findings or changes. Electronically Signed: Poli Lara MD at 12:14 EST , Echocardiogram 05/28/24 21:17 Interpretation Summary Technically difficult study with suboptimal images. Mild concentric left ventricular hypertrophy. The left ventricular ejection fraction is 65 %. Stage 1 diastolic dysfunction. The left atrium is mildly enlarged. Ordering Physician: Christian Prater Referring Physician: Demetris Fuentes Performed By: Elina Underwood, RDCS, RVT Physical Exam Const alert, oriented x3 and no apparent distress General Appearance: cooperative, well kempt and well developed Orientation / Consciousness: awake, oriented to person, oriented to place and oriented to time HEENT normocephalic, head/scalp atraumatic and moist oral mucous membranes Eyes PERRL, EOMs intact bilaterally and conjunctivae normal Neck supple, no JVD, thyroid normal and no carotid bruits General: trachea midline Resp normal respiratory effort, no retractions, no use of accessory muscles and clear to auscultation bilaterally Auscultation: Negative for rales, rhonchi or wheezes Cardio regular rate, regular rhythm, S1 normal heart sound, S2 normal heart sound, no murmurs, no rub and no gallops GI normal to inspection, nondistended, normoactive bowel sounds, soft to palpation, non-tender and non-distended Extremity no clubbing, cyanosis or edema Skin no rashes or lesions noted General Skin Exam: no breakdown Neuro oriented x3, CN's II-XII intact bilaterally and no sensory deficits noted Neuro Narrative: Patient has a weakness in his right upper extremity as compared with his left side Sensorium / Orientation: awake and alert Speech: speech normal Psych affect normal Assessment & Plan Assessment/Plan (1) Type 2 diabetes mellitus with hyperglycemia: PLAN: Plan 1. Right upper extremity weakness-etiology unknown at this point, additional imaging studies will need to be performed, patient may not be able to have an MRI performed until this Monday due to scheduling and the holiday. PT and OT are seeing the patient. Arrangements will be made for the patient to go to skilled care hopefully on Monday or Monday of this week. #2 cerebrovascular disease-patient has evidence on his MRI of an old lacunar cystic infarct in the posterior aspect of the left superior frontal gyrus, patient remains on aspirin at this time, he takes 325 mg of aspirin as an outpatient, I do not know why he is on this high of a dose but I have elected to continue it at this time. Patient remains on atorvastatin #3 type 2 diabetes-blood sugars will be monitored, sliding scale insulin will be administered as needed #4 acute debility secondary to right upper extremity paresis-patient will need short-term placement in a long-term facility, on Monday of this week he will meet his 3 midnight threshold. #5 hypothyroidism-patient is on Synthroid #6 hyperlipidemia-patient is on atorvastatin Total clinical time spent by myself addressing the patient's medical issues, reviewing all of his data, and collaborating with patient's care team: 35 minutes Charges/Coding Visit Charges Inpatient E&M: 18570 Subs Hosp L2
[2024-05-29] MEDS: Atorvastatin Calcium 40 MG Tablet PO (22:46)
[2024-05-29] MEDS: Insulin Glargine-YFGN 100 UNIT/ML Pen 22 UNIT SC (22:47)
[2024-05-29] MEDS: Insulin Lispro 100 UNIT/ML INSULN.PEN SC (22:48)
[2024-05-29 23:36] LABS: Bedside Glucose 170 mg/dL (74-106)
[2024-05-30 02:49] VITALS: BMI 38.4
[2024-05-30 04:30] VITALS: BP 135/61; PULSE 70; RESP 18; TEMP 36.2; O2SAT 97
[2024-05-30] MEDS: Gabapentin 300 MG Capsule PO ×3 (06:11→21:17)
[2024-05-30] MEDS: Levothyroxine 75 MCG Tablet PO (06:14)
[2024-05-30 07:19] LABS: Bedside Glucose 97 mg/dL (74-106)
[2024-05-30 07:48] VITALS: O2SAT 96
--- NOTE | 2024-05-30 07:54 | PN.HOSP_ITS ---
Reason for Visit Reason for Visit: Diagnoses Type 2 diabetes mellitus with hyperglycemia (05/28/24) Cerebral infarction, unspecified (05/28/24) Other malaise (05/28/24) Subjective Subjective Right arm and leg weakness that began on the . Previously it had been his better hand. He states that when he abducts his right hand, he loses sense of proprioception. Objective Data Objective Data Vital Signs: Vital Signs Temp Pulse Resp BP Pulse Ox O2 Del Method 36.2 C L 70 18 135/61 H 96 Room Air 05/30/24 04:30 05/30/24 04:30 05/30/24 04:30 05/30/24 04:30 05/30/24 07:48 05/30/24 07:48 Oxygen Delivery Method Room Air Weight: 111.3 kg Body Mass Index (BMI) 38.4 Intake & Output: Intake and Output for Last 24 Hours 05/28/24 05/29/24 05/30/24 23:59 23:59 23:59 Intake Total 960 / 960 Output Total 1950 / 1950 350 / 350 Balance -990 / -990 -350 / -350 Lab / Micro Data 05/29/24 05:07 05/29/24 05:07 Labs: Laboratory Results - last 24 hr 05/29/24 05:07: Hemoglobin A1c 11.3 H 05/29/24 11:38: POC Glucose 117 H 05/29/24 16:48: POC Glucose 163 H 05/29/24 22:39: POC Glucose 170 H 05/30/24 06:13: POC Glucose 97 Radiography Diagnostic Testing: Radiology Impression Brain MRI 05/28/24 20:41 IMPRESSION: 1. No MRI evidence of acute or subacute ischemic infarct or acute intracranial abnormality. 2. Chronic white matter ischemic changes in both cerebral hemispheres, confluent in the forceps major. 3. 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 4. No other additional findings or changes. Electronically Signed: Poli Lara MD at 12:14 EST , Echocardiogram 05/28/24 21:17 Interpretation Summary Technically difficult study with suboptimal images. Mild concentric left ventricular hypertrophy. The left ventricular ejection fraction is 65 %. Stage 1 diastolic dysfunction. The left atrium is mildly enlarged. Ordering Physician: Christian Prater Referring Physician: Demetris Fuentes Performed By: Elina Underwood, RDCS, RVT Cervical Spine MRI 05/29/24 14:29 IMPRESSION: 1. Intramedullary spinal cord signal abnormality is present from the level of C3-C4 through the level of C6-C7 at which point it is most severe associated with volume loss in the spinal cord. Compression of the spinal cord at multiple levels. 2. Extensive degenerative changes with multilevel spinal canal and neural foraminal stenosis as detailed above. RECOMMENDATIONS: Neurosurgical consultation if not already performed. Electronically Signed: Mo Dow DO at 20:22 EST , Neck MRA 05/29/24 14:29 IMPRESSION: 1. Less than 50% stenosis of the left internal carotid artery likely secondary to atherosclerosis just distal to the bifurcation. 2. Approximately 50% stenosis of the right internal carotid artery likely secondary to atherosclerosis just distal to the bifurcation. Electronically Signed: Mo Dow DO at 20:24 EST , Head MRA 05/29/24 14:34 IMPRESSION: No acute findings in the arteries of the head/brain. Electronically Signed: Mo Dow DO at 20:23 EST , Physical Exam Const alert and no apparent distress HEENT head/scalp atraumatic and moist oral mucous membranes Resp normal respiratory effort, no retractions, no use of accessory muscles and clear to auscultation bilaterally Cardio regular rate, regular rhythm, S1 normal heart sound and S2 normal heart sound GI normal to inspection, nondistended, normoactive bowel sounds, soft to palpation, non-tender and non-distended Extremity normal to inspection and full ROM Neuro Sensorium / Orientation: awake, alert and oriented to person Assessment & Plan Assessment/Plan (1) Type 2 diabetes mellitus with hyperglycemia: PLAN: Plan R sided weakness * Appears to be radicular no evidence of CVA. Not felt to be a CVA per neurology * MRI brain showed no evidence of acute or subacute ischemic infarct. Chronic WM changes. 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 Compression of the spinal cord at multiple levels. * DW Dr. Hernandez, he recommends dexamethasone 8mg TID and a soft collar. He would not be able to any surgery until next week. He recommended speaking with CM/SW on 05/31 Debility * PT OT Chronic conditions: * cerebrovascular disease-patient has evidence on his MRI of an old lacunar cystic infarct in the posterior aspect of the left superior frontal gyrus, patient remains on aspirin at this time, he takes 325 mg of aspirin as an outpatient, I do not know why he is on this high of a dose but I have elected to continue it at this time. Patient remains on atorvastatin * type 2 diabetes-blood sugars will be monitored, sliding scale insulin will be administered as needed * hypothyroidism-patient is on Synthroid * hyperlipidemia-patient is on atorvastatin VTE prophylaxis: SCDs. Greater than 60 minutes spent reviewing the chart, data, discussing with specialist. Charges/Coding Visit Charges Inpatient E&M: 12215 Subs Hosp L3
[2024-05-30 09:56] VITALS: BP 153/68; PULSE 66; RESP 18; TEMP 36.6; O2SAT 96
[2024-05-30] MEDS: Aspirin 325 MG Tablet PO (09:57)
[2024-05-30] MEDS: Acetaminophen 325 MG Tablet 650 MG PO ×2 (10:01→21:17)
[2024-05-30 12:28] LABS: Bedside Glucose 149 mg/dL (74-106)
[2024-05-30] MEDS: dexAMETHasone 4 MG Tablet 8 MG PO ×2 (14:05→21:13)
[2024-05-30 15:30] VITALS: BP 140/85; PULSE 72; RESP 18; TEMP 36.7; O2SAT 96
[2024-05-30 16:11] VITALS: BMI 38.4
[2024-05-30] MEDS: Insulin Lispro 100 UNIT/ML INSULN.PEN SC ×2 (16:39→21:17)
[2024-05-30 17:00] LABS: Bedside Glucose 282 mg/dL (74-106)
[2024-05-30] MEDS: Atorvastatin Calcium 40 MG Tablet PO (21:13)
[2024-05-30] MEDS: Insulin Glargine-YFGN 100 UNIT/ML Pen 22 UNIT SC (21:17)
[2024-05-30 21:21] VITALS: BP 151/75; PULSE 72; RESP 17; TEMP 36.6; O2SAT 96
[2024-05-30 22:16] LABS: Bedside Glucose 431 mg/dL (74-106)
[2024-05-31 03:20] VITALS: BP 141/80; PULSE 71; RESP 18; TEMP 36.4; O2SAT 97
[2024-05-31] MEDS: Levothyroxine 75 MCG Tablet PO (05:39)
[2024-05-31] MEDS: Acetaminophen 325 MG Tablet 650 MG PO (05:39)
[2024-05-31] MEDS: Gabapentin 300 MG Capsule PO (05:40)
[2024-05-31] MEDS: dexAMETHasone 4 MG Tablet 8 MG PO (05:40)
[2024-05-31] MEDS: Insulin Lispro 100 UNIT/ML INSULN.PEN SC ×2 (06:32→12:32)
[2024-05-31 06:52] LABS: Bedside Glucose 321 mg/dL (74-106)
[2024-05-31] MEDS: Aspirin 325 MG Tablet PO (07:45)
[2024-05-31 07:52] VITALS: PULSE 63
[2024-05-31 09:20] VITALS: BP 132/78; PULSE 63; RESP 18; TEMP 36.6; O2SAT 95
--- NOTE | 2024-05-31 11:12 | PCM.TXEXTCAR ---
Diet Diet Order/Speech Therapy: 05/29/24 06:24 Diet: Consistent Carb - Calorie Controlled Dietary Modifications:: Cardiac / Heart Healthy Type of Dietary Supplement:: Carl Diet Comments: Carl with breakfast and dinner. No milk on trays. How many daily calories?: 1999 calorie Routine Orders/Code Status Code Status: DNRCC-A (No intubation.) DC O2, CPAP, BIPAP needs Additional Home O2 Discharge instructions: No Wound(s) bilateral lower legs: Wound Type: scattered superficial abrasions Dressing Change: Adaptic Therapies Weight Bearing: Full weight bearing Physical Therapy: Eval and Treat Occupational Therapy: Eval and Treat Problem/Diagnosis (1) Type 2 diabetes mellitus with hyperglycemia: Status: Acute Code(s): E11.65 - Type 2 diabetes mellitus with hyperglycemia Plan R sided weakness Appears to be radicular no evidence of CVA. Not felt to be a CVA per neurology MRI brain showed no evidence of acute or subacute ischemic infarct. Chronic WM changes. 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 MRI C-spine: intramedullary spinal cord signal abnormality at the level of c3-4 through c6-7. Compression of the spinal cord at multiple levels. DW Dr. Hernandez, he recommends dexamethasone 8mg TID and a soft collar. He would not be able to any surgery until next week. He recommended speaking with CM/SW on 05/31 Debility PT OT Chronic conditions: cerebrovascular disease-patient has evidence on his MRI of an old lacunar cystic infarct in the posterior aspect of the left superior frontal gyrus, patient remains on aspirin at this time, he takes 325 mg of aspirin as an outpatient, I do not know why he is on this high of a dose but I have elected to continue it at this time. Patient remains on atorvastatin type 2 diabetes-blood sugars will be monitored, sliding scale insulin will be administered as needed hypothyroidism-patient is on Synthroid hyperlipidemia-patient is on atorvastatin VTE prophylaxis: SCDs. Greater than 60 minutes spent reviewing the chart, data, discussing with specialist. Allergies/Procedures Done in Hospital Allergies iodine Allergy (Verified 05/28/24 19:28) Swelling Penicillins Adverse Reaction (Mild, Verified 05/28/24 19:28) PT UNSURE OF REACTION Type of Care/Length of Stay Estimated LOS: Convalescent Care Less Than 30 days Type of Care Needed: Skilled Rehab Potential: Good Prognosis: Good Additional Orders/Day of Discharge Day of Discharge: 05/31/24 Dietary and Speech Recommendations Dietitian Recommendations/Changes: Adjust to cardiac, 2000 calorie controlled diet. Will order Carl BID with breakfast and dinner. Will order 120ml glucerna TID with meals. RD will remove milk allergy d/t not a true allergy. Will adjust ONS, as needed. Will monitor weight, as available. Reviewed and approved by Jeanna Seals RDN, MANISHA. Discharge Plan Admission Admit Date/Time: 05/28/24 20:11 Primary Reason for Your Visit: Cervical stenosis. Attending Provider: Mode Verdugo Primary Care Provider: Demetris Fuentes Consulting Providers: Christian Prater; Demetris Sullivan; Nam Alvarado; Mitchel Liz; Annie Mike; Madie Cabrera; Katy Villagomez; Earl Gary; Manjula Carroll; Venkata Mack; Ernesto Deluca; Solo Victoria; Eda Quevedo; Brad Christopher; Olga Pearson; Tony Kidd; Jarrell Pelaez; Gregory Elise; Juan Tayolr; Brady Bailey; Pam Silva; Dion Chacon Discharge Orders/Prescriptions Prescriptions: New dexamethasone 4 mg Tablet 8 mg PO TID Qty: 0 0RF Rx Instructions: 1 tablet TID for 3 days, then 1 table BID for 4 days, then 1 tablet daily for 4 days, then every other day for 3 doses insulin lispro [Humalog KwikPen Insulin] 100 unit/mL Insulin Pen See Protocol subcut ACHS Qty: 0 0RF Protocol: 4. Sliding Scale Insulin High-Med Dosing Condition: 150-199 mg/dl = 2 units Condition: 200-259 mg/dl = 4 units Condition: 260-324 mg/dl = 6 units Condition: 325-374 mg/dl = 8 units Condition: 375-409 mg/dl = 10 units Condition: 410-449 mg/dl = 11 units Condition: Greater than 449 call physician Protocol Text: Suggested for: - Patients on Total Daily Insulin Dose of 56-80 units - Patient who are known to be insulin resistant or septic HIGH MEDIUM DOSING ALGORITHM Glucerna 1.2 Jai 0.06-1.2 gram-kcal/mL Liquid 120 ml PO TIDCM Qty: 0 0RF Continued atorvastatin 40 MG tablet 40 mg PO QHS aspirin 325 MG tablet 325 mg PO DAILY@0800 atenolol 25 MG tablet 25 mg PO QHS levothyroxine 75 MCG tablet 75 mcg PO DAILY nitroglycerin 0.4 MG tablet 0.4 mg sublingual Q5M PRN (Reason: Chest Pain) insulin lispro [Humalog KwikPen Insulin] 100 unit/mL Insulin Pen 9 unit SUBCUT TID insulin glargine-yfgn 100 unit/mL (3 mL) insulin pen 27 unit subcut QHS omega 2-axu-ksc-fish oil [Fish Oil] 1,200 (144-216) mg capsule 1 cap PO BID gabapentin 300 mg capsule 300 mg PO TID PRN (Reason: Nerve Pain) losartan 100 mg tablet 100 mg PO DAILY glucosamine-chondroitin [Osteo Bi-Flex] 250-200 mg tablet 2 tab PO TID Rx Instructions: give after food/meal meloxicam 7.5 mg tablet 7.5 mg PO DAILY mupirocin 2 % ointment 1 applic topical TID Jardiance 25 mg tablet 25 mg PO DAILY acetaminophen 500 mg Tablet 1,000 mg PO Q6H PRN PRN (Reason: Pain Score 1-10) Qty: 0 0RF furosemide 40 mg Tablet 40 mg PO DAILY 30 Days Qty: 30 0RF Referrals / Follow Up: Henry Hernandez MD [Med Staff - Active Staff] - Within 2 Weeks Demetris Fuentes MD [Primary Care Provider] - Within 2 Weeks Disposition Disposition (needs filled in before D/C Order can be placed): Senior Care Facility
--- NOTE | 2024-05-31 11:23 | DS.PCM_ITS ---
Providers Date of Admission: 05/28/24 Primary Care Physician: Dr. Demetris Fuentes MD Consultations 05/28/24 21:17 Consult: Tele-Neurology Routine Consulting Provider: [facility] Reason for Consult: Acute Ischemic Stroke/TIA EMERGENT Consult: No MD Notified: Yes Date Notified: 05/28/24 Time Notified: 22:41 Method of Notification: Answering Service Nursing Unit Staff Notify [facility] of Tele-Neurology Consult: Yes 05/29/24 03:30 Consult: Onc/Wound/reel man Routine Comment: Reason for Consult:: BILATERAL EXTREMITY WOUNDS Reason For Visit: ACUTE CVA Diagnosis Discharge Diagnosis (1) Type 2 diabetes mellitus with hyperglycemia: Status: Acute Code(s): E11.65 - Type 2 diabetes mellitus with hyperglycemia Plan R sided weakness * Appears to be radicular no evidence of CVA. Not felt to be a CVA per neurology * MRI brain showed no evidence of acute or subacute ischemic infarct. Chronic WM changes. 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 Compression of the spinal cord at multiple levels. * DW Dr. Hernandez, he recommends dexamethasone 8mg TID and a soft collar. He would not be able to any surgery until next week. He recommended speaking with CM/SW on 05/31 Debility * PT OT Chronic conditions: * cerebrovascular disease-patient has evidence on his MRI of an old lacunar cystic infarct in the posterior aspect of the left superior frontal gyrus, patient remains on aspirin at this time, he takes 325 mg of aspirin as an outpatient, I do not know why he is on this high of a dose but I have elected to continue it at this time. Patient remains on atorvastatin * type 2 diabetes-blood sugars will be monitored, sliding scale insulin will be administered as needed * hypothyroidism-patient is on Synthroid * hyperlipidemia-patient is on atorvastatin VTE prophylaxis: SCDs. Greater than 60 minutes spent reviewing the chart, data, discussing with specialist. Medications at Discharge Home Medications aspirin 325 mg tablet 325 mg PO DAILY@0800 HEALTH MAINTENANCE 08/20/16 atenolol 25 mg tablet 25 mg PO QHS BP 08/20/16 atorvastatin 40 mg tablet 40 mg PO QHS CHOLESTEROL 08/20/16 levothyroxine 75 mcg tablet 75 mcg PO DAILY THYROID 08/20/16 nitroglycerin 0.4 mg sublingual tablet 0.4 mg sublingual Q5M PRN Chest Pain 08/20/16 insulin glargine-yfgn 100 unit/mL (3 mL) subcutaneous pen 27 unit subcut QHS Diabetes 12/19/22 insulin lispro 100 unit/mL subcutaneous pen (Humalog KwikPen (U-100) Insulin) 9 unit subcut TID Diabetes 12/19/22 gabapentin 300 mg capsule 300 mg PO TID PRN Nerve Pain 11/16/23 glucosamine-chondroitin 250 mg-200 mg tablet (Osteo Bi-Flex) 2 tab PO TID Supplement 11/16/23 losartan 100 mg tablet 100 mg PO DAILY BP 11/16/23 omega 5-zay-svr-fish oil 1,200 mg (144 mg-216 mg) capsule (Fish Oil) 1 cap PO BID Supplement 11/16/23 acetaminophen 500 mg tablet 1,000 mg (2 x 500 mg) PO Q6H PRN PRN Pain Score 1-10 #0 tabs 12/07/23 furosemide 40 mg tablet 40 mg PO DAILY 30 days #30 tabs 12/07/23 empagliflozin 25 mg tablet (Jardiance) 25 mg PO DAILY 05/28/24 meloxicam 7.5 mg tablet 7.5 mg PO DAILY 05/28/24 mupirocin 2 % topical ointment 1 applic topical TID 05/28/24 dexamethasone 4 mg tablet 8 mg (2 x 4 mg) PO TID #0 tabs 05/31/24 insulin lispro 100 unit/mL subcutaneous pen (Humalog KwikPen (U-100) Insulin) See Protocol subcut ACHS #0 mL 05/31/24 nutrition tx glu intol,lac-free,soy-fiber 0.06 gram-1.2 kcal/mL liquid (Glucerna 1.2 Jai) 120 ml PO TIDCM #0 mL 05/31/24 Hospital Course Operations None Procedures None Summary of Care Provided Minutes Spent on Discharge: 40 Hospital Course: Patient presents with right upper extremity weakness. His initial complaints actually were right upper and right lower extremity weakness that began on Monday. Patient underwent an MRI of his brain that showed no acute process but his MRI of the cervical spine showed intramedullary spinal cord signal abnormality to the level of C3-C4 through the level of C6-C7. I discussed with Dr. Gaspar, spine surgery, who recommended steroids. The patient was started on dexamethasone 8 mg 3 times daily. Reevaluated the patient today and he is actually improved. His strength is much improved on his right side as compared to the . I notified Dr. Gaspar and the plan is for the patient to follow-up with Dr. Gaspar as outpatient. Patient expresses that he is not sure he would want to undergo that kind of surgery. I told him to follow-up with Dr. Gaspar and see what the options are and then proceed from there. Patient will be discharged with a dexamethasone taper. Weight / BMI Weight Weight: 111.3 kg Body Mass Index (BMI) 38.4 ABG / Lab / Microbiology Data 05/29/24 05:07 05/29/24 05:07 Laboratory: Laboratory Results - last 24 hr 05/30/24 12:09: POC Glucose 149 H 05/30/24 16:38: POC Glucose 282 H 05/30/24 21:15: POC Glucose 431 H 05/31/24 06:31: POC Glucose 321 H D/C Instructions Discharge Diet: 2000 Calorie Control Diet DC O2, CPAP, BIPAP Needs Additional Home O2 Discharge instructions: No DC home with Oxygen: No Meaningful Use Info Meaningful Use Meaningful Use Diagnoses (Choose all that apply): None applicable Ischemic Stroke Statin Dosing Therapy Reference: STATIN DOSE THERAPY REFERENCE: * Patients > 75 years receive moderate or high dose statin therapy. * Patients 75 years or YOUNGER should receive HIGH intensity statin dose unless contraindicated. You will be required to document reason for non-treatment if statin daily dose does not meet guidelines. HIGH DOSE STATIN THERAPY DAILY Atorvastatin > than or = to 40 mg Rosuvastatin > than or = to 20 mg Amlodipine + Atorvastatin > than or = to 2.5/40 mg Ezetimibe + Simvastatin 10/80 mg Simvastatin 80mg Discharge Plan Admission Admit Date/Time: 05/28/24 20:11 Primary Reason for Your Visit: Cervical stenosis. Attending Provider: Mode Verdugo Primary Care Provider: Demetris Fuentes Consulting Providers: Christian Prater; Demetris Sullivan; Nam Alvarado; Mitchel Liz; Annie Mike; Madie Cabrera; Katy Villagomez; Earl Gary; Manjula Carroll; Venkata Mack; Ernesto Deluca; Solo Victoria; Eda Quevedo; Brad Christopher; Olga Pearson; Tony Kidd; Jarrell Pelaez; Gregory Elise; Juan Taylor; Brady Bailey; Pam Silva; Dion Chacon Discharge Orders/Prescriptions Prescriptions: New dexamethasone 4 mg Tablet 8 mg PO TID Qty: 0 0RF Rx Instructions: 1 tablet TID for 3 days, then 1 table BID for 4 days, then 1 tablet daily for 4 days, then every other day for 3 doses insulin lispro [Humalog KwikPen Insulin] 100 unit/mL Insulin Pen See Protocol subcut ACHS Qty: 0 0RF Protocol: 4. Sliding Scale Insulin High-Med Dosing Condition: 150-199 mg/dl = 2 units Condition: 200-259 mg/dl = 4 units Condition: 260-324 mg/dl = 6 units Condition: 325-374 mg/dl = 8 units Condition: 375-409 mg/dl = 10 units Condition: 410-449 mg/dl = 11 units Condition: Greater than 449 call physician Protocol Text: Suggested for: - Patients on Total Daily Insulin Dose of 56-80 units - Patient who are known to be insulin resistant or septic HIGH MEDIUM DOSING ALGORITHM Glucerna 1.2 Jai 0.06-1.2 gram-kcal/mL Liquid 120 ml PO TIDCM Qty: 0 0RF Continued atorvastatin 40 MG tablet 40 mg PO QHS aspirin 325 MG tablet 325 mg PO DAILY@0800 atenolol 25 MG tablet 25 mg PO QHS levothyroxine 75 MCG tablet 75 mcg PO DAILY nitroglycerin 0.4 MG tablet 0.4 mg sublingual Q5M PRN (Reason: Chest Pain) insulin lispro [Humalog KwikPen Insulin] 100 unit/mL Insulin Pen 9 unit SUBCUT TID insulin glargine-yfgn 100 unit/mL (3 mL) insulin pen 27 unit subcut QHS omega 4-tln-lrt-fish oil [Fish Oil] 1,200 (144-216) mg capsule 1 cap PO BID gabapentin 300 mg capsule 300 mg PO TID PRN (Reason: Nerve Pain) losartan 100 mg tablet 100 mg PO DAILY glucosamine-chondroitin [Osteo Bi-Flex] 250-200 mg tablet 2 tab PO TID Rx Instructions: give after food/meal meloxicam 7.5 mg tablet 7.5 mg PO DAILY mupirocin 2 % ointment 1 applic topical TID Jardiance 25 mg tablet 25 mg PO DAILY acetaminophen 500 mg Tablet 1,000 mg PO Q6H PRN PRN (Reason: Pain Score 1-10) Qty: 0 0RF furosemide 40 mg Tablet 40 mg PO DAILY 30 Days Qty: 30 0RF Referrals / Follow Up: Henry Hernandez MD [Med Staff - Active Staff] - Within 2 Weeks Demetris Fuentes MD [Primary Care Provider] - Within 2 Weeks Disposition Disposition (needs filled in before D/C Order can be placed): [facility] Facility Charges/Coding Visit Charges Inpatient E&M: 98277 Disch Hosp >30min
[2024-05-31 11:43] LABS: Bedside Glucose 416 mg/dL (74-106)
--- NOTE | 2024-05-31 11:49 | CASEMGMT ---
Patient is ready for discharge to TCU. Plan: d/c to [facility] under skilled level of care. Debra MONTEJO
[2024-05-31 12:42] VITALS: BP 133/72; PULSE 65; RESP 18; TEMP 36.7; O2SAT 95
== END 2024-05-31 14:55 | disposition skilled nursing facility (03) | DRG 552 ==
LOC: ED 20:13 → PCU 20:55
PROVIDERS: Internal Medicine; Admitting Provider Hospitalist; Emergency Provider Emergency Medicine; PCP Family Medicine
DX: M48.02 Spinal stenosis, cervical region (principal); G99.2 Myelopathy in diseases classified elsewhere; Z66 Do not resuscitate; E11.22 Type 2 diabetes mellitus with diabetic chronic kidney disease; N18.31 Chronic kidney disease, stage 3a; E03.9 Hypothyroidism, unspecified; I12.9 Hypertensive chronic kidney disease with stage 1 through stage 4 chronic kidney disease, or unspecified chronic kidney disease; E66.9 Obesity, unspecified; E78.00 Pure hypercholesterolemia, unspecified; Z79.4 Long term (current) use of insulin; I25.10 Atherosclerotic heart disease of native coronary artery without angina pectoris; E11.40 Type 2 diabetes mellitus with diabetic neuropathy, unspecified; E11.65 Type 2 diabetes mellitus with hyperglycemia; M54.12 Radiculopathy, cervical region; R53.1 Weakness; R53.81 Other malaise; Z68.39 Body mass index [BMI] 39.0-39.9, adult; Z79.82 Long term (current) use of aspirin; Z79.899 Other long term (current) drug therapy; Z79.84 Long term (current) use of oral hypoglycemic drugs; Z86.73 Personal history of transient ischemic attack (TIA), and cerebral infarction without residual deficits
CPT/HCPCS: 36415; 70450; 70544; 70547; 70551; 71045; 72141; 80048; 80061; 82962; 83036; 84443; 84484; 85025; 85027; 85610; 85730; 90662; 93005; 93306; 94762; 97110; 97162; 97166; 97530; 97535; 97802; 99285; Q9957; A4216; C8929

== ENCOUNTER 2024-05-31 15:07 | Inpatient (IN) | payer MEDICARE, OTHER, SELFPAY ==
[2024-05-31 15:10] VITALS: BP 161/67; PULSE 86; RESP 18; TEMP 36.9; O2SAT 92; BMI 38.2
[2024-05-31] MEDS: dexAMETHasone 4 MG Tablet 6 MG PO (17:32)
[2024-05-31] MEDS: Glucerna Shake 120 ML LIQUID PO (17:33)
[2024-05-31] MEDS: Insulin Lispro 100 UNIT/ML INSULN.PEN 9 UNIT SC (17:35)
[2024-05-31] MEDS: Insulin Lispro 100 UNIT/ML INSULN.PEN SC ×2 (17:35→22:40)
[2024-05-31 17:53] LABS: Bedside Glucose 394 mg/dL (74-106)
[2024-05-31 22:00] VITALS: BP 119/61; PULSE 80; RESP 16
[2024-05-31] MEDS: Insulin Glargine-YFGN 100 UNIT/ML Pen 27 UNIT SC (22:41)
[2024-05-31] MEDS: Atenolol 25 MG Tablet PO (22:42)
[2024-05-31] MEDS: Senna/Docusate Sodium 1 Tablet 2 TABLET PO (22:42)
[2024-05-31] MEDS: Atorvastatin Calcium 40 MG Tablet PO (22:42)
[2024-05-31 23:43] LABS: Bedside Glucose 352 mg/dL (74-106)
[2024-06-01 03:33] LABS: Bedside Glucose 262 mg/dL (74-106)
[2024-06-01 05:47] VITALS: BMI 38.1
[2024-06-01 06:26] LABS: Bedside Glucose 245 mg/dL (74-106)
[2024-06-01] MEDS: 0.9% Saline Lock 10 ML Syringe IV ×2 (06:50→22:26)
[2024-06-01] MEDS: Levothyroxine 75 MCG Tablet PO (06:52)
[2024-06-01] MEDS: Insulin Lispro 100 UNIT/ML INSULN.PEN SC ×4 (06:52→22:30)
[2024-06-01 07:23] LABS: Absolute Lymphocyte Count 1.42 X10^3/uL (0.83-4.51); Absolute Neutrophil Count 12.2 X10^3/uL (2.0-7.7); Basophil# 0.03 X10^3/uL; Basophil% 0.2 % (0-1); Hematocrit 41.3 % (40-54); Hemoglobin 13.6 g/dL (13.0-16.5); Lymphocyte # 1.42 X10^3/ul (0.83-4.51); Lymphocyte % 9.7 % (19-41); Mean Corp Hgb Conc 32.9 g/dL (32-36); Mean Corpuscular Hgb 27.6 pg (27.0-32.0); Mean Corpuscular Volume 83.9 fL (80-94); Mean Platelet Vol. 10.8 fl (6.2-12.0); Monocyte# 0.78 X10^3/uL; Monocyte% 5.3 % (0-10); NRBC Flagged by Analyzer 0 % (0-5); Neutrophil % 83.6 % (47-70); Platelet Count 242 K/mm3 (150-450); RBC Distribution Width CV 13.2 % (11.6-14.6); RBC Distribution Width SD 40.9 fl (35.1-43.9); Red Blood Count 4.92 M/mm3 (4.6-6.2); White Blood Count 14.6 K/mm3 (4.4-11.0)
[2024-06-01 07:55] LABS: ALB/GLOB Ratio 1.1 RATIO (0.9-2.4); AST(SGOT) 9 U/L (15-37); Alanine Aminotransfer ALT/SGPT 18 U/L (16-61); Albumin, Serum 3.1 g/dL (3.2-5.0); Alkaline Phosphatase 109 U/L (45-117); Anion Gap 6 (5-15); BUN 54 mg/dL (7-18); BUN/Creat Ratio 37.8 RATIO (10-20); Chloride 109 mmol/L (98-107); Creatinine, Serum 1.43 mg/dL (0.70-1.30); EST Glomerular Filtration Rate 50 mL/min (>60); Est Glom Filt Rate - Afr Amer 61 mL/min (>60); Estimated Creatinine Clearance 45.59 ml/min; Globulin 2.9 g/dL (2.2-4.2); Glucose 300 mg/dL (74-106); Magnesium 2.4 mg/dL (1.6-2.6); Phosphorus 3.9 mg/dL (2.5-4.9); Potassium 4.4 mmol/L (3.5-5.1); Sodium Level 138 mmol/L (136-145)
[2024-06-01] MEDS: Glucerna Shake 120 ML LIQUID PO ×3 (08:22→17:35)
[2024-06-01] MEDS: dexAMETHasone 4 MG Tablet 6 MG PO ×3 (08:22→17:35)
[2024-06-01] MEDS: Insulin Lispro 100 UNIT/ML INSULN.PEN 9 UNIT SC ×2 (08:22→12:37)
[2024-06-01] MEDS: Empagliflozin 25 MG Tablet PO (08:23)
[2024-06-01] MEDS: Losartan Potassium 100 MG Tablet PO (08:23)
[2024-06-01] MEDS: Senna/Docusate Sodium 1 Tablet 2 TABLET PO ×2 (08:23→22:33)
[2024-06-01] MEDS: Meloxicam 7.5 MG Tablet PO (08:23)
[2024-06-01] MEDS: Pantoprazole Sodium 20 MG Tablet PO (08:23)
[2024-06-01] MEDS: Aspirin 325 MG Tablet PO (08:23)
[2024-06-01] MEDS: Furosemide 40 MG Tablet PO (08:23)
[2024-06-01] MEDS: Tuberculin,Purif.prot.deriv. 50 TU/ML Vial 0.1 ML ID (08:24)
[2024-06-01 11:13] VITALS: BP 114/57; PULSE 64; RESP 18; TEMP 36.6; O2SAT 97
[2024-06-01 12:23] LABS: Bedside Glucose 313 mg/dL (74-106)
[2024-06-01 13:55] VITALS: O2SAT 97
[2024-06-01 17:15] LABS: Bedside Glucose 366 mg/dL (74-106)
[2024-06-01] MEDS: Insulin Lispro 100 UNIT/ML INSULN.PEN 14 UNIT SC (17:35)
[2024-06-01 21:29] LABS: Bedside Glucose 312 mg/dL (74-106)
[2024-06-01] MEDS: Acetaminophen 500 MG Tablet 1000 MG PO (22:26)
[2024-06-01] MEDS: Insulin Glargine-YFGN 100 UNIT/ML Pen 35 UNIT SC (22:29)
[2024-06-01] MEDS: Atorvastatin Calcium 40 MG Tablet PO (22:33)
[2024-06-01] MEDS: Atenolol 25 MG Tablet PO (22:34)
[2024-06-01 22:52] VITALS: BP 123/70; PULSE 56
[2024-06-01 23:30] VITALS: PULSE 56; RESP 15; O2SAT 96
[2024-06-02] MEDS: Levothyroxine 75 MCG Tablet PO (05:46)
[2024-06-02 06:06] VITALS: BMI 38.2
[2024-06-02 06:19] LABS: Bedside Glucose 268 mg/dL (74-106)
[2024-06-02] MEDS: Glucerna Shake 120 ML LIQUID PO ×3 (08:18→17:28)
[2024-06-02] MEDS: Insulin Lispro 100 UNIT/ML INSULN.PEN SC ×4 (08:19→21:00)
[2024-06-02] MEDS: dexAMETHasone 4 MG Tablet 6 MG PO ×3 (08:22→17:26)
[2024-06-02] MEDS: Insulin Lispro 100 UNIT/ML INSULN.PEN 14 UNIT SC ×3 (08:23→17:23)
[2024-06-02] MEDS: Meloxicam 7.5 MG Tablet PO (08:25)
[2024-06-02] MEDS: Aspirin 325 MG Tablet PO (08:25)
[2024-06-02] MEDS: Losartan Potassium 100 MG Tablet PO (08:26)
[2024-06-02] MEDS: Empagliflozin 25 MG Tablet PO (08:26)
[2024-06-02] MEDS: Furosemide 40 MG Tablet PO (08:26)
[2024-06-02] MEDS: Pantoprazole Sodium 20 MG Tablet PO (08:27)
[2024-06-02] MEDS: Senna/Docusate Sodium 1 Tablet 2 TABLET PO ×2 (08:27→20:40)
[2024-06-02 08:33] VITALS: BP 142/67; PULSE 96; O2SAT 98
[2024-06-02] MEDS: Arthritis Pain Compound 60 CLICK TUBE TOPICAL ×2 (11:17→20:41)
[2024-06-02 11:46] LABS: Bedside Glucose 294 mg/dL (74-106)
[2024-06-02 13:39] VITALS: O2SAT 98
[2024-06-02 14:05] VITALS: PULSE 58; RESP 18; O2SAT 94
[2024-06-02 15:47] LABS: Bedside Glucose 262 mg/dL (74-106)
[2024-06-02] MEDS: 0.9% Saline Lock 10 ML Syringe IV ×2 (17:24→20:40)
[2024-06-02] MEDS: Acetaminophen 500 MG Tablet 1000 MG PO (20:39)
[2024-06-02] MEDS: Atenolol 25 MG Tablet PO (20:40)
[2024-06-02] MEDS: Atorvastatin Calcium 40 MG Tablet PO (20:40)
[2024-06-02 20:44] VITALS: BP 100/54; PULSE 56
[2024-06-02] MEDS: Insulin Glargine-YFGN 100 UNIT/ML Pen 35 UNIT SC (21:00)
[2024-06-02 21:25] LABS: Bedside Glucose 169 mg/dL (74-106)
[2024-06-03] MEDS: Levothyroxine 75 MCG Tablet PO (05:51)
[2024-06-03 05:56] VITALS: BMI 37.2
[2024-06-03 06:38] LABS: Bedside Glucose 192 mg/dL (74-106)
[2024-06-03] MEDS: Aspirin 325 MG Tablet PO (08:10)
[2024-06-03] MEDS: dexAMETHasone 4 MG Tablet 6 MG PO ×3 (08:10→18:06)
[2024-06-03] MEDS: Senna/Docusate Sodium 1 Tablet 2 TABLET PO ×2 (08:11→23:36)
[2024-06-03] MEDS: Insulin Lispro 100 UNIT/ML INSULN.PEN SC ×3 (08:11→18:06)
[2024-06-03] MEDS: Furosemide 40 MG Tablet PO (08:11)
[2024-06-03] MEDS: Pantoprazole Sodium 20 MG Tablet PO (08:11)
[2024-06-03] MEDS: Losartan Potassium 100 MG Tablet PO (08:11)
[2024-06-03] MEDS: Empagliflozin 25 MG Tablet PO (08:11)
[2024-06-03] MEDS: Meloxicam 7.5 MG Tablet PO (08:11)
[2024-06-03] MEDS: Glucerna Shake 120 ML LIQUID PO ×3 (08:11→18:06)
[2024-06-03] MEDS: Insulin Lispro 100 UNIT/ML INSULN.PEN 14 UNIT SC ×3 (08:12→18:05)
[2024-06-03] MEDS: Arthritis Pain Compound 60 CLICK TUBE TOPICAL ×2 (08:12→23:28)
[2024-06-03 08:24] VITALS: BP 124/62; PULSE 52
[2024-06-03 11:34] LABS: Bedside Glucose 159 mg/dL (74-106)
[2024-06-03] MEDS: 0.9% Saline Lock 10 ML Syringe IV (12:16)
[2024-06-03 15:06] VITALS: BP 120/56; PULSE 60; RESP 20; TEMP 36.2; O2SAT 93
[2024-06-03 16:43] LABS: Bedside Glucose 159 mg/dL (74-106)
[2024-06-03 19:49] VITALS: BP 130/60; PULSE 57; RESP 18; O2SAT 92
[2024-06-03 21:49] LABS: Bedside Glucose 149 mg/dL (74-106)
[2024-06-03] MEDS: Insulin Glargine-YFGN 100 UNIT/ML Pen 35 UNIT SC (23:29)
[2024-06-03] MEDS: Atorvastatin Calcium 40 MG Tablet PO (23:32)
[2024-06-03] MEDS: Atenolol 25 MG Tablet PO (23:37)
[2024-06-04] MEDS: Losartan Potassium 100 MG Tablet PO (06:13)
[2024-06-04] MEDS: Levothyroxine 75 MCG Tablet PO (06:13)
[2024-06-04 06:22] LABS: Bedside Glucose 155 mg/dL (74-106)
[2024-06-04 07:24] VITALS: PULSE 61; RESP 16; O2SAT 95
[2024-06-04] MEDS: Insulin Lispro 100 UNIT/ML INSULN.PEN SC (08:03)
[2024-06-04] MEDS: Insulin Lispro 100 UNIT/ML INSULN.PEN 14 UNIT SC (08:09)
[2024-06-04 12:00] LABS: Bedside Glucose 125 mg/dL (74-106)
== END 2024-06-04 11:30 | disposition home or self-care (01) | DRG 552 ==
PROVIDERS: Admitting Provider Internal Medicine; PCP Family Medicine; Referring Provider Internal Medicine; Visit Provider Internal Medicine
DX: M48.02 Spinal stenosis, cervical region (principal); G95.89 Other specified diseases of spinal cord; G99.2 Myelopathy in diseases classified elsewhere; M50.01 Cervical disc disorder with myelopathy, high cervical region; E66.01 Morbid (severe) obesity due to excess calories; E03.9 Hypothyroidism, unspecified; E11.65 Type 2 diabetes mellitus with hyperglycemia; I65.23 Occlusion and stenosis of bilateral carotid arteries; I10 Essential (primary) hypertension; E11.51 Type 2 diabetes mellitus with diabetic peripheral angiopathy without gangrene; Z79.4 Long term (current) use of insulin; I25.10 Atherosclerotic heart disease of native coronary artery without angina pectoris; E78.00 Pure hypercholesterolemia, unspecified; M17.0 Bilateral primary osteoarthritis of knee; E11.40 Type 2 diabetes mellitus with diabetic neuropathy, unspecified; Z79.84 Long term (current) use of oral hypoglycemic drugs; Z68.38 Body mass index [BMI] 38.0-38.9, adult; Z79.82 Long term (current) use of aspirin; Z79.899 Other long term (current) drug therapy; Z79.890 Hormone replacement therapy
CPT/HCPCS: 36415; 72040; 80053; 82962; 83735; 84100; 85025; 87811; 97110; 97150; 97162; 97166; 97530; 97535; A4216

== ENCOUNTER → 2024-06-03 | Outpatient (CLI) | payer MEDICARE, OTHER, SELFPAY | END | disposition home or self-care (01) | PROVIDERS: PCP Family Medicine; Referring Provider Orthopaedic Surgery Orthopaedic Surgery of the Spine; Visit Provider Orthopaedic Surgery Orthopaedic Surgery of the Spine | DX: M48.02 Spinal stenosis, cervical region (principal) | CPT/HCPCS: 72125 ==

== ENCOUNTER 2024-06-04 17:50 | Inpatient (IN) | payer MEDICARE, OTHER, SELFPAY ==
[2024-06-04] VITALS (15 sets, daily range): BP systolic 108–153; BP diastolic 50–80; PULSE 50–77; RESP 16–19; TEMP 36.1–36.9; O2SAT 92–100; BMI 34.7; BMI 38.3
[2024-06-04 12:32] LABS: Bedside Glucose 131 mg/dL (74-106)
--- NOTE | 2024-06-04 12:37 | PRE.ANES_ITS ---
ASA Classification* ASA Classification ASA Classification: 3 Assessment & Plan Anesthesia* Anesthesia Assessment Anesthesia Assessment: Discussed sedation and/or anesthesia options, risks, benefits, and alternatives with patient/parents/legal guardian/POA. Questions invited. The patient/parents/legal guardian/POA seems to understand and agrees to proceed with anesthesia plan. Reviewed the physical assessment, medical history, allergy history and patient home medications list prior to surgery/procedure/anesthetic and documented any changes. Performed airway and anesthesia risk assessments. Anesthesia Type Anesthesia Type: General History Source History Obtained from:: Patient and Chart Anesthesia Focused Assessment* Temperature: 98 F Pulse Rate: 50 Blood Pressure: 126/66 Respiratory Rate: 16 Pulse Ox: 95 Oxygen Delivery Method: Room Air Airway Assessment Mouth opens: >3 cm Mallampati Score: IV Teeth Condition: Chipped/Broken (Multiple chipped and broken.) Neck Range of motion (ROM): Limited ROM (Somewhat decreased extension.) Comment: Full armando Focused Labs Anesthesia Preop lab: CBC WBC 14.6 K/mm3 (4.4-11.0) H 06/01/24 06:40 RBC 4.92 M/mm3 (4.6-6.2) 06/01/24 06:40 Hgb 13.6 g/dL (13.0-16.5) 06/01/24 06:40 Hct 41.3 % (40-54) 06/01/24 06:40 Plt Count 242 K/mm3 (150-450) 06/01/24 06:40 CHEMISTRY Potassium 4.4 mmol/L (3.5-5.1) 06/01/24 06:40 Sodium 138 mmol/L (136-145) 06/01/24 06:40 Magnesium 2.4 mg/dL (1.6-2.6) 06/01/24 06:40 Phosphorus 3.9 mg/dL (2.5-4.9) 06/01/24 06:40 BUN 54 mg/dL (7-18) H 06/01/24 06:40 Creatinine 1.43 mg/dL (0.70-1.30) H 06/01/24 06:40 Glucose 300 mg/dL (74-106) H 06/01/24 06:40 POC Glucose 131 mg/dL (74-106) H 06/04/24 12:14 TSH 4.380 uIU/mL (0.358-3.740) H 05/28/24 19:29 COAG PT 13.1 SECONDS (11.7-14.9) 05/28/24 19:29 Pre-Assessment Diagnosis/Proposed Procedure Planned Operative Procedure(s): POSTERIOR CERVICAL FUSION Anesthesia History Anesthesia History - supervisor drilling and shooting: Anesthesia History - supervisor drilling and shooting Hx Hospitalization No 06/03/24 14:52 Any Problems With Anesthesia No 06/03/24 14:52 Cholinesterase deficiency No 06/03/24 14:52 You/Your Family Experience No 06/03/24 14:52 fever (hyperthermia) with Relationship Recent Exposure to Contagious No 06/04/24 12:02 Disease Does patient have nerve No 06/03/24 14:52 stimulator Patient instructed to have device shut off --Does patient have Pacemaker No 06/04/24 12:02 or ICD? When Was Last Pacemaker Check QUESTION #4 FULL TEXT: You/Your Family Experience fever (hyperthermia) with Anesthesia Last Oral Intake Last Oral intake: Last Oral Intake NPO since 00:00 06/04/24 12:02 Meds taken in AM with sips of Yes 06/04/24 12:02 water? Meds patient instructed to take am of surgery PONV PONV - supervisor drilling and shooting: PONV - supervisor drilling and shooting Female No 06/03/24 14:52 HX of Motion Sickness No 06/03/24 14:52 HX of N/V After Surgery No 06/03/24 14:52 Non-Smoker Yes 06/03/24 14:52 Duration of Surgery greater Yes 06/03/24 14:52 than 60 minutes Number of Risk Factors 2 06/03/24 14:52 PONV Score Moderate Risk 06/03/24 14:52 Height & Weight Height & Weight: Anesthesia: Height & Weight Height 5 ft 7 in 06/04/24 12:02 Weight: 100.7 kg 06/04/24 12:02 Body Mass Index (BMI) 34.7 06/04/24 12:02 Respiratory Assessment Respiratory Assessment - supervisor drilling and shooting: Respiratory Tract Infection Hx - supervisor drilling and shooting Hx Respiratory Tract Infection No 06/03/24 14:52 STOP Sleep Apnea STOP Sleep Apnea - supervisor drilling and shooting: STOP Sleep Apnea - supervisor drilling and shooting Hx Hypertension Yes 06/03/24 14:52 Hx Sleep Apnea No 06/03/24 14:52 CPAP BIPAP Do you snore loudly (louder No 06/03/24 14:52 than talking or can be heard Do you often feel tired/ No 06/03/24 14:52 fatigued/ sleepy during daytime? Has anyone observed you stop No 06/03/24 14:52 breathing during sleep? STOP Results Negative 06/03/24 14:52 QUESTION #5 FULL TEXT : Do you snore loudly (louder than talking or can be heard through closed doors)? 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 Specify any problems Hx of Preganancy in last 3 N/A 06/03/24 14:52 Months Nurse Filling Out Transfusion VCHRISTIN 06/03/24 14:52 & Questions: Date: 06/03/24 06/03/24 14:52 Time: 14:54 06/03/24 14:52 Patient unable to answer at this time (ie. confused, unrespo /Reproduction History /Reproductive History - supervisor drilling and shooting: /Reproductive Hx- supervisor drilling and shooting Hx Now No 06/03/24 14:52 Gestational Age (in weeks): EDC: Hx Hx Para Hx Section SAB No 06/03/24 14:52 Active Medications Active Medications: Current Medications Generic Name Dose Route Start Last Admin Trade Name Freq PRN Reason Stop Dose Admin Lactated Ringer's 1,000 mls @ 15 mls/hr 06/04/24 11:45 IV 06/10/24 01:04 .Q48H COUNT INCLUDES THE [facility] Protocol PFSH Medical History (Updated 06/04/24 @ 12:[address] Aniceto Rowell MD) Abrasion Insulin dependent diabetes mellitus Thyroid disease Diabetes Non-smoker History of edema Nephrolithiasis Uncontrolled diabetes mellitus Lactose intolerance Debility Bilateral edema of lower extremity Osteoarthritis Stroke/cerebrovascular accident Hypothyroid High cholesterol Diabetes Hypertension Home Medications ?Medication ?Instructions ?Recorded ?Last Taken ?Type aspirin 325 mg tablet 325 mg PO DAILY@0800 HEALTH 08/20/16 05/31/24 History MAINTENANCE atenolol 25 mg tablet 25 mg PO QHS BP 08/20/16 11/19/23 22:55 History atorvastatin 40 mg tablet 40 mg PO QHS CHOLESTEROL 08/20/16 05/30/24 History levothyroxine 75 mcg tablet 75 mcg PO DAILY THYROID 08/20/16 06/04/24 History nitroglycerin 0.4 mg sublingual 0.4 mg sublingual Q5M PRN Chest 08/20/16 Unknown History tablet Pain insulin glargine-yfgn 100 unit/mL 27 unit subcut QHS Diabetes 12/19/22 11/19/23 23:25 History (3 mL) subcutaneous pen insulin lispro 100 unit/mL 9 unit subcut TID Diabetes 12/19/22 11/20/23 History subcutaneous pen (Humalog KwikPen (U-100) Insulin) glucosamine-chondroitin 250 mg-200 2 tab PO TID Supplement 11/16/23 Unknown History mg tablet (Osteo Bi-Flex) losartan 100 mg tablet 100 mg PO DAILY BP 11/16/23 06/04/24 History omega 7-brd-ioz-fish oil 1,200 mg 1 cap PO BID Supplement 11/16/23 11/20/23 History (144 mg-216 mg) capsule (Fish Oil) acetaminophen 500 mg tablet 1,000 mg (2 x 500 mg) PO Q6H PRN 12/07/23 Unknown Rx PRN Pain Score 1-10 #0 tabs furosemide 40 mg tablet 40 mg PO DAILY Fluid retention 30 12/07/23 Unknown Rx days #30 tabs empagliflozin 25 mg tablet 25 mg PO DAILY Blood sugar 05/28/24 Unknown History (Jardiance) meloxicam 7.5 mg tablet 7.5 mg PO DAILY Osteoarthristis 05/28/24 Unknown History mupirocin 2 % topical ointment 1 applic topical TID Skin condition 05/28/24 Unknown History dexamethasone 4 mg tablet 8 mg (2 x 4 mg) PO TID Steroid #0 05/31/24 05/31/24 Rx tabs insulin lispro 100 unit/mL See Protocol subcut ACHS Blood 05/31/24 Unknown Rx subcutaneous pen (Humalog KwikPen sugar #0 mL (U-100) Insulin) nutrition tx glu 120 ml PO TIDCM supplement #0 mL 05/31/24 Unknown Rx intol,lac-free,soy-fiber 0.06 gram-1.2 kcal/mL liquid (Glucerna 1.2 Jai) Allergy/AdvReac Type Severity Reaction Status Date / Time iodine Allergy Swelling Verified 05/28/24 19:28 Penicillins AdvReac Mild PT UNSURE Verified 05/28/24 19:28 OF REACTION Surgical History History of tonsillectomy History of appendectomy History of cholecystectomy Social History household members: none Smoking Status: Never smoker alcohol intake: never substance use type: does not use Review of Systems (Anesthesia) ROS Narrative System reviewed and no additional complaints, except as documented.
--- NOTE | 2024-06-04 13:10 | HP.PCM_ITS ---
History and Physical Date of Admission: 06/04/24 MR#: [id number] Acct: [id number] Name: PHILLIP ANGEL Rep #: [id number] : 1940 83 From: Henry Hernandez MD PCP: Dr. Demetris Fuentes MD Status: ADM IN Location: [place] [address] Documented by User: JATIN Colmenares 06/03/24 14:35 HPI Consult Data Date of Consult: 06/03/24 HPI Narrative HPI Narrative: PHILLIP ANGEL is a 83 M who presents with a past medical history of osteoarthritis, remote stroke, hypothyroidism, hyperlipidemia, diabetes mellitus type 2 uncontrolled, nephrolithiasis morbid obesity and hypertension who presented to the emergency department at [facility] on 05/28/2024 complaining of weakness and numbness in the right upper extremity/hand. CT brain showed moderate cerebral atrophy and areas of decreased attenuation within the white matter tracts of the supratentorial brain consistent with microvascular disease. It was otherwise unremarkable and there was no evidence of intracranial hemorrhage or findings consistent with an his acute ischemic infarct. [facility] was consulted from the ER. His NIHSS score was 2. 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 The neurologist recommended a stat MR a of the head and neck to evaluate for any large vessel occlusion. MRI showed no evidence of acute or subacute ischemic infarct or acute intracranial abnormality. There was an old lacunar cystic infarct in the posterior aspect of the left superior frontal gyrus. MRA of the neck showed less than 50% stenosis of the left internal carotid artery and approximately 50% stenosis of the right internal carotid artery. MRA of the head showed no acute findings in the arteries of the head/brain. He was admitted to the hospitalist service. On follow up following the completion of the MRI brain the neurologist felt the sx were more likely related to cervical spine issues. MRI of the neck was recommended. MRI of the neck showed intramedullary spinal cord signal abnormality present from the level of C3-C4 through level C6-C7. There was associated volume loss in the spinal cord. There was compression of the spinal cord at multiple levels. There was extensive degenerative change in the cervical spine with multilevel spinal canal and neuroforaminal stenosis. On a dexamethasone taper per the hospitalist. Reports that over the last year his function has declined which has resulted in him using a scooter for transportation when he leaves the house. Otherwise at home he uses a Rollator walker. Says that his dexterity has declined and has dropped utensils out of his hand and has increased difficulty with fine motor activities. Says that within the last month this issue comes and goes. At home he has remained independent with help from his children periodically. He was admitted back in December for stroke like symptoms and weakness and at that time they found two old strokes. He takes a baby aspirin. [facility] Medical History (Updated 06/03/24 @ 15:[address] Henry Hernandez MD) Abrasion Insulin dependent diabetes mellitus Thyroid disease Diabetes Non-smoker History of edema Nephrolithiasis Uncontrolled diabetes mellitus Lactose intolerance Debility Bilateral edema of lower extremity Osteoarthritis Stroke/cerebrovascular accident Hypothyroid High cholesterol Diabetes Hypertension Home Medications ?Medication ?Instructions ?Recorded ?Last Taken ?Type aspirin 325 mg tablet 325 mg PO DAILY@0800 HEALTH 08/20/16 05/31/24 History MAINTENANCE atenolol 25 mg tablet 25 mg PO QHS BP 08/20/16 11/19/23 22:55 History atorvastatin 40 mg tablet 40 mg PO QHS CHOLESTEROL 08/20/16 05/30/24 History levothyroxine 75 mcg tablet 75 mcg PO DAILY THYROID 08/20/16 05/31/24 History nitroglycerin 0.4 mg sublingual 0.4 mg sublingual Q5M PRN Chest 08/20/16 Unknown History tablet Pain insulin glargine-yfgn 100 unit/mL 27 unit subcut QHS Diabetes 12/19/22 11/19/23 23:25 History (3 mL) subcutaneous pen insulin lispro 100 unit/mL 9 unit subcut TID Diabetes 12/19/22 11/20/23 History subcutaneous pen (Humalog KwikPen (U-100) Insulin) glucosamine-chondroitin 250 mg-200 2 tab PO TID Supplement 11/16/23 Unknown History mg tablet (Osteo Bi-Flex) losartan 100 mg tablet 100 mg PO DAILY BP 11/16/23 11/20/23 08:10 History omega 9-lps-nyc-fish oil 1,200 mg 1 cap PO BID Supplement 11/16/23 11/20/23 History (144 mg-216 mg) capsule (Fish Oil) acetaminophen 500 mg tablet 1,000 mg (2 x 500 mg) PO Q6H PRN 12/07/23 Unknown Rx PRN Pain Score 1-10 #0 tabs furosemide 40 mg tablet 40 mg PO DAILY Fluid retention 30 12/07/23 Unknown Rx days #30 tabs empagliflozin 25 mg tablet 25 mg PO DAILY Blood sugar 05/28/24 Unknown History (Jardiance) meloxicam 7.5 mg tablet 7.5 mg PO DAILY Osteoarthristis 05/28/24 Unknown History mupirocin 2 % topical ointment 1 applic topical TID Skin condition 05/28/24 Unknown History dexamethasone 4 mg tablet 8 mg (2 x 4 mg) PO TID Steroid #0 05/31/24 05/31/24 Rx tabs insulin lispro 100 unit/mL See Protocol subcut ACHS Blood 05/31/24 Unknown Rx subcutaneous pen (Humalog KwikPen sugar #0 mL (U-100) Insulin) nutrition tx glu 120 ml PO TIDCM supplement #0 mL 05/31/24 Unknown Rx intol,lac-free,soy-fiber 0.06 gram-1.2 kcal/mL liquid (Glucerna 1.2 Jai) Allergy/AdvReac Type Severity Reaction Status Date / Time iodine Allergy Swelling Verified 05/28/24 19:28 Penicillins AdvReac Mild PT UNSURE Verified 05/28/24 19:28 OF REACTION Surgical History History of tonsillectomy History of appendectomy History of cholecystectomy Social History household members: none Smoking Status: Never smoker alcohol intake: never substance use type: does not use Vital Signs Vital Signs Vital Signs: 06/02/2420:44 06/02/2420:48 06/03/2408:19 Pulse Rate 56 L Pulse Strength Normal (2+) Blood Pressure 100/54 L Blood Pressure Mean 69 Blood Pressure Source Monitor Blood Pressure Position Semi-Fowlers Blood Pressure Location Right Arm Oxygen Delivery Method Room Air 06/03/2408:24 06/03/2410:00 Pulse Rate 52 L Pulse Strength Normal (2+) Blood Pressure 124/62 H Blood Pressure Mean 82 Blood Pressure Source Monitor Blood Pressure Position Semi-Fowlers Blood Pressure Location Left Arm Oxygen Delivery Method Weight Weight: 237 lb 14.4 oz Body Mass Index (BMI) 37.2 Physical Exam Narrative Neurological exam of the upper extremities showed 4 right finger home care specialist and triceps, and 4+ wrist extension, left shoulder abduction limited due to prior rotator cuff issues. Lower extremities showed grade 3 power for right plantar flexion, all other muscle groups showed 5 power. Kimmie's positive on the right. Normal sensation across all dermatomes. No clonus. Patient wearing ENEDELIA wraps on bilateral lower extremities. Const alert, oriented x3 and no apparent distress Lab / Micro Data 06/01/24 06:40 06/01/24 06:40 Labs: Laboratory Results - last 24 hr 06/02/24 15:20: POC Glucose 262 H 06/02/24 20:52: POC Glucose 169 H 06/03/24 06:01: POC Glucose 192 H 06/03/24 11:09: POC Glucose 159 H Micro: Microbiology 06/03/24 05:45 Nasal Secretion SARS-CoV-2 Antigen (Rapid) - Final Imaging Radiology Impression Cervical Spine X-Ray 06/03/24 10:48 IMPRESSION: Severe degenerative disc disease lower cervical spine with 2 mm retrolisthesis of C2 on C3 and straightening of the normal lordotic curvature. Electronically Signed: Alfa Burns MD at 12:27 EST , MRI cervical spine 05/29/24 IMPRESSION: 1. Intramedullary spinal cord signal abnormality is present from the level of C3-C4 through the level of C6-C7 at which point it is most severe associated with volume loss in the spinal cord. Compression of the spinal cord at multiple levels. 2. Extensive degenerative changes with multilevel spinal canal and neural foraminal stenosis as detailed above. Electronically Signed: Mo Dow DO at 20:22 EST , Assessment & Plan Assessment/Plan (1) Cervical myelopathy: (2) Myelomalacia of cervical cord: PLAN: Plan Spoke and discussed pain with patient's son Demetris who is his POA. Documented by User: Dr. Henry Hernandez MD 06/03/24 15:16 HPI Consult Data Date of Consult: 06/03/24 [facility] Medical History (Updated 06/03/24 @ 15:[address] Henry Hernandez MD) Abrasion Insulin dependent diabetes mellitus Thyroid disease Diabetes Non-smoker History of edema Nephrolithiasis Uncontrolled diabetes mellitus Lactose intolerance Debility Bilateral edema of lower extremity Osteoarthritis Stroke/cerebrovascular accident Hypothyroid High cholesterol Diabetes Hypertension Home Medications ?Medication ?Instructions ?Recorded ?Last Taken ?Type aspirin 325 mg tablet 325 mg PO DAILY@0800 HEALTH 08/20/16 05/31/24 History MAINTENANCE atenolol 25 mg tablet 25 mg PO QHS BP 08/20/16 11/19/23 22:55 History atorvastatin 40 mg tablet 40 mg PO QHS CHOLESTEROL 08/20/16 05/30/24 History levothyroxine 75 mcg tablet 75 mcg PO DAILY THYROID 08/20/16 05/31/24 History nitroglycerin 0.4 mg sublingual 0.4 mg sublingual Q5M PRN Chest 08/20/16 Unknown History tablet Pain insulin glargine-yfgn 100 unit/mL 27 unit subcut QHS Diabetes 12/19/22 11/19/23 23:25 History (3 mL) subcutaneous pen insulin lispro 100 unit/mL 9 unit subcut TID Diabetes 12/19/22 11/20/23 History subcutaneous pen (Humalog KwikPen (U-100) Insulin) glucosamine-chondroitin 250 mg-200 2 tab PO TID Supplement 11/16/23 Unknown History mg tablet (Osteo Bi-Flex) losartan 100 mg tablet 100 mg PO DAILY BP 11/16/23 11/20/23 08:10 History omega 1-yun-yem-fish oil 1,200 mg 1 cap PO BID Supplement 11/16/23 11/20/23 History (144 mg-216 mg) capsule (Fish Oil) acetaminophen 500 mg tablet 1,000 mg (2 x 500 mg) PO Q6H PRN 12/07/23 Unknown Rx PRN Pain Score 1-10 #0 tabs furosemide 40 mg tablet 40 mg PO DAILY Fluid retention 30 12/07/23 Unknown Rx days #30 tabs empagliflozin 25 mg tablet 25 mg PO DAILY Blood sugar 05/28/24 Unknown History (Jardiance) meloxicam 7.5 mg tablet 7.5 mg PO DAILY Osteoarthristis 05/28/24 Unknown History mupirocin 2 % topical ointment 1 applic topical TID Skin condition 05/28/24 Unknown History dexamethasone 4 mg tablet 8 mg (2 x 4 mg) PO TID Steroid #0 05/31/24 05/31/24 Rx tabs insulin lispro 100 unit/mL See Protocol subcut ACHS Blood 05/31/24 Unknown Rx subcutaneous pen (Humalog KwikPen sugar #0 mL (U-100) Insulin) nutrition tx glu 120 ml PO TIDCM supplement #0 mL 05/31/24 Unknown Rx intol,lac-free,soy-fiber 0.06 gram-1.2 kcal/mL liquid (Glucerna 1.2 Jai) Allergy/AdvReac Type Severity Reaction Status Date / Time iodine Allergy Swelling Verified 05/28/24 19:28 Penicillins AdvReac Mild PT UNSURE Verified 05/28/24 19:28 OF REACTION Surgical History History of tonsillectomy History of appendectomy History of cholecystectomy Social History household members: none Smoking Status: Never smoker alcohol intake: never substance use type: does not use Lab / Micro Data 06/01/24 06:40 06/01/24 06:40 Assessment & Plan Assessment/Plan (1) Cervical myelopathy: (2) Myelomalacia of cervical cord: PLAN: Plan I reviewed the cervical MRI done last week, I also obtained x-rays and CT scan of the cervical spine. These show C3-7 severe stenosis with cord compression and cord signal changes especially at C6-7. C4-5 shows autofusion but has a large osteophyte complex causing cord compression. Severe stenosis and cord compression noted at all levels from C3-7. Discussed imaging findings in detail. Patient has developed severe progressive cervical myelopathy with decline of function and now recently admitted for right upper extremity weakness. He is right-hand dominant. He has severe weakness in right upper and right lower extremity which has only minimally improved with IV steroid treatment of the last week with soft collar. Explained to him that cervical myelopathy typically has a progressive pattern, and surgical dec ompression provides the best opportunity for halting the progression of myelopathy and hopefully getting some function back. Possibility of residual balance issues as well as dexterity problems as well as weakness despite surgical decompression was discussed. I recommend C3-C7 laminectomy, C3-T1 posterior spinal instrumented fusion. All risk benefits and alternatives were discussed in detail. The risks include but are not limited to infection, bleeding, hematoma formation, need for further surgery, hardware failure, pseudoarthrosis, adjacent segment degeneration, need for flap closure, sti ffness, persistent pain, persistent weakness, spinal cord injury, nerve root injury, DVT, pulm embolism, cardiopulmonary event. Patient understands and wishes to discuss with his son who is his POA. I spoke and discussed plan with patient's son Demetris who is his POA. Explained all of the above including risk benefits and alternatives in detail with his son on the phone. Discussed the downsides of not proceeding with surgery which would be progressive decline in function and losing independence with activities of daily living. Patient and his son would like to discuss [id number] among themselves about proceeding with surgery this evening. I will tentatively schedule the surgery for tomorrow. Patient will need to be n.p.o. after midnight. Discussion about A1c of 11 and severe uncontrolled diabetes being an increased risk for infection as well as fusion healing, among other complications was discussed as well. All questions were answered.
[2024-06-04] MEDS: Clindamycin 900 MG/50 ML BAG 75 MG IV ×2 (13:15→22:26)
[2024-06-04] MEDS: TXA 1000mg in NS100 100ml (IVPB at Incision) 660 MG IV (13:25)
[2024-06-04] MEDS: BACITRACIN/POLYMYXIN B 15 GM Tube 1 APPLIC (14:01)
--- NOTE | 2024-06-04 16:49 | RAD_ITS ---
STUDY: X-RAY - CERVICAL SPINE REASON FOR EXAM: Male, 83 years old. POSTERIOR DECOMPRESSION FUSION C3-T1 TECHNIQUE: 7 intraoperative view(s) of the cervical spine were obtained. COMPARISON: None FINDINGS: 7 limited intraoperative studies were performed as the patient is undergoing posterior decompression and fusion from C3 to T1. No intraoperative complications are noted. RAD/Cerv Spine 2 or 3 Views IMPRESSION: No intraoperative complications noted during posterior decompression/fusion of C3-T1. Electronically Signed: Jamil Alvarado MD at 18:45 EST ,
[2024-06-04] MEDS: TXA 1000mg in NS100 100ml (IVPB at Closure) 660 MG IV (17:47)
[2024-06-04] MEDS: Vancomycin IV 1,000 MG/20 ML Vial 1000 MG OPERA.SITE (18:00)
--- NOTE | 2024-06-04 18:57 | PCM.OPRPT ---
Operative Report (Standard) Operative Information Surgery/Procedure Performed: C3-C7 laminectomy, bilateral C6-7 and C7-T1 foraminotomies, C3-T1 posterior instrumented spinal fusion Surgeon: Henry eHrnandez Date of Procedure: 06/04/24 Procedure Start Time: 14:20 Procedure Stop Time: 19:05 Pre-Operative Diagnosis: C3-7 stenosis, cord compression, myelomalacia, myelopathy Post-Operative Diagnosis: Same Select all DRAINS/GRAFTS/IMPLANTS that apply: Drains Drain details: See Dr. Chu's op note , Graft Graft details: Allograft bone chips, autograft morselized local graft from lamina, Magnifuse and Implanted device Implanted device details: Medtronic Infinity posterior cervical instrumentation Type of Anesthesia: General Estimated Blood Loss: 400 cc Specimen collected: No Description of surgery: Preoperative diagnosis: C3-7 stenosis, cord compression, myelomalacia with severe myelopathy Postoperative diagnosis: Same Name of procedure: C3-C7 laminectomy, bilateral C6-7 and C7-T1 foraminotomies, C3-T1 posterior instrumented spinal fusion -C3-4 posterior fusion CPT code 15827 -C4-5 posterior fusion CPT code 09832/51 -C5-6 posterior fusion CPT code 25007/51 -C6-7 posterior fusion CPT code 79208/51 -C7-T1 posterior fusion CPT code 20992/51 -C3-7 posterior decompression CPT code 81510 -C6-7 foraminotomy bilateral CPT code 18928, modifier 50 -C7-T1 foraminotomy bilateral CPT code 79441, modifier 50 -C3-T1 posterior instrumentation CPT code 95817 - Autograft lamina morselized CPT code 33997 - Allograft Magnifuse CPT code 90613 Attending Surgeon: Dr. Henry Hernandez Co-surgeon: Dr. Jamil Chu, plastic surgery for primary layered flap closure, dictated separately Estimated blood loss: 400 mL Anesthesia: GA Complications: None Instrumentation: Medtronics Infinity posterior lateral mass instrumentation Indications: Patient is a 83-year-old gentleman who presented with progressively worsening difficulty with balance and multiple falls and right worse than left upper and lower extremity weakness. Imaging revealed C3-7 stenosis with cord compression with myelomalacia. In order to halt the progression of myelopathy, patient requested surgical treatment. All risks associated with surgery were explained which include but are not limited to infection, blood loss, injury to spinal cord and nerve roots, quadriplegia, DVT, pulmonary embolism, , incomplete neurologic recovery, hardware failure, pseudoarthrosis, need for further surgery. Procedure: The patient was identified in the preoperative suite using unique patient identifiers. Skin was marked, consent was reviewed, and all questions were answered. The patient was then brought back to the operative room. A surgical timeout was performed to make sure correct procedure was being done on the correct patient and all operative room staff were on the same page. General endotracheal anesthesia was then given to the patient. Jeffrey catheter was inserted. Spinal monitoring leads were applied. Pre-flip baseline potentials were recorded. Huggins tongs were then applied. The patient was then carefully positioned prone on a regular OR table over parallel gel rolls and the Huggins attachments were applied. All bony prominences were well-padded. Abdomen was free. Reverse Trendelenburg position was given. A lateral C-arm shot was taken to define the extent of incision. Post-flip Baseline neuro monitoring potentials were recorded. Skin was then prepped and draped in the usual fashion. A final time-out was then performed. A posterior midline incision was taken from approximately C2 spinous process to T1. Subcutaneous tissue was dissected with Bovie to reach the tips of spinous processes following the white line. Subperiosteal dissection was then carried out around the spinous process. A towel clip was applied to one of the spinous processes and a lateral C-arm image was taken. Levels were confirmed. Further subperiosteal dissection was then continued to expose C3-T1 right up to the lateral edge of the lateral masses. Hemostasis was achieved with Bovie and occasional use of FloSeal and aqua mantis. Screws were then placed using a bur to make a helicopter pilot instructor hole and then utilizing drill with a stop at 14 mm. Ballpoint probe was utilized to see if this cortex was breached. Lateral mass screws were placed from C3-C6 bilaterally. Screw sizes were 3.5 x 14 mm at all levels bilaterally. A bur was utilized to perform a laminoforaminotomy bilaterally at C6-7 and at C7-T1 to decompress the foraminal stenosis. nerve hook was then utilized to identify the superior and medial borders of the C7 and T1 pedicles. A helicopter pilot instructor hole was then made with bur and drill was utilized to to create a pedicle channel. Ballpoint probe showed good maintenance of pedicle wray. 4 x 26 at C7 and 4.5 x 26 at T1 pedicle screws were placed. C-arm showed good positioning of screws. Bone scalpel was then utilized to make a score on both sides to perform a laminectomy at C3-C7. The bone scalpel was then used to complete the bone cuts along the scored lines including a portion of the superior half of the C7 lamina. Once this was completed and nerve hook was utilized to probe under the ligamentum flavum and #2 Kerrison rongeur was used to complete the laminectomy troughs. The laminectomy was then completed by using Kerrison rongeurs at the C2-3 and C6-7 interlaminar spaces. With gentle traction was given through towel clips attached to C3 and C6 spinous processes while the laminectomy was completed. Motor potentials were run periodically during the decompression procedure and they were all baseline. Irrisept was then placed into the incision for 3 minutes. Irrigation was performed with 3 L of normal saline using pulse lavage. Bur was then utilized to decorticate the lateral masses from C3- C6 as well as lamina and spinous process of C7 and T1 bilaterally. An appropriate length precontoured xavi was then placed and set screws were tightened. Final tightening was done with torque screwdriver. Lamina bone from the laminectomy was morselized and mixed with DBX along with cancellous bone chips. This was then placed lateral to the screws & rods for fusion. Magnifuse bags of allograft was also placed on top of these autograft chips. 1 g vancomycin powder was sprinkled into the wound. Closure was done with the help of Dr. Smith from plastic surgery who performed a layered muscle flap closure primarily. Separate note will be dictated by him. The patient was then carefully detached from the Huggins attachments and turned supine carefully onto a hospital bed. A hard cervical collar was placed. Huggins pins were removed. The patient was extubated and was found to move all 4 extremities. The patient was then taken to the PACU for postop management. Estimated blood loss for the entire procedure was 400 mL. The patient tolerated the entire procedure well and no complications occurred. SpearFysh instrumentation was utilized. No dural tear was identified intraoperatively. I was present for the entirety of the case and performed the surgery myself. Data Analytics Specialist Ariana Darden PA-C. My physician mri assistant was a vital part of this case. They were important in appropriate retraction during the case, and protection of soft tissues during the procedure. Their intimate knowledge of the case and my steps aided in safe and expedient completion of the procedure as well as appropriate position of the patient during the surgery. They were also vital in assisting with closure under my direct supervision. Surgical Findings: See operative note Roof Designer founder ceo & president: Yes Refrigeration Plant Operator: Jamil Chu Tasks completed by facilities assistant: Other (Co-surgeon, plastic surgery, primary flap closure) Additional mri assistant?: Yes Additional Data Analytics Specialist #2: Ariana Darden Tasks completed by mri assistant #2: Dissecting tissue, Hemostasis: Electrocautery and Retracting Complications Complications: No Procedures Musculoskeletal 20xxx-29xxx: Other Procedure See Report
[2024-06-04] MEDS: Bupivacaine Mpf 0.5% 30 ML VIAL (19:01)
--- NOTE | 2024-06-04 19:38 | OP.PCM_ITS ---
Operative Report (Standard) Operative Information Surgery/Procedure Performed: 1) Paraspinous muscle advancement flap, left, for closure of cervical spine wound, CPT 80250 2) Paraspinous muscle advancement flap, right, for closure of cervical spine wound, CPT 06865 Surgeon: Jamil Chu Date of Procedure: 06/04/24 Procedure Start Time: 17:45 Procedure Stop Time: 19:06 Pre-Operative Diagnosis: Cervical Spine Wound Post-Operative Diagnosis: Same s/p muscle flap closure Select all DRAINS/GRAFTS/IMPLANTS that apply: Drains Drain details: 2 drains (inferior is over the spine beneath muscle flaps, superior is in subcutaneous plane) Type of Anesthesia: General/Supplemental (8cc of 0.25% Marcaine around drain sites/incision ) Estimated Blood Loss: 20 cc psu Specimen collected: No Description of surgery: Indications: Patient is an 83-year-old male with new onset cervical myelopathy. He has been treated with corticosteroids and has poorly controlled diabetes. Spinal surgeon, Dr. Henry Hernandez, is concerned for wound formation following spinal fusion today and therefore consulted plastic surgery for closure. I spoke with the patient and his family preoperatively and they understood the plan for muscle flaps, and were thoroughly informed regarding risks, benefits, and alternatives. Procedure detail: Patient underwent spinal fusion. Please see Dr. Hernandez's note for this portion of the procedure. Plastic surgery was called in the room following the fusion of the cervical spine. Patient was already prepped and draped in sterile fashion. A timeout was performed for plastic surgery's portion of the procedure. I began the procedure by dissecting with Bovie electrocautery in a plane above the paraspinous muscles bilaterally beneath the trapezius muscle. Dissection laterally freed up the paraspinous muscles for advancement medially. A backcut in the fascia was carefully made at the lateral aspect of the paraspinous muscles bilaterally so as to better rotate and imbricate the muscles into position over the spinal hardware/midline spine without tension. A 15 Slovenian Jakob drain was placed beneath the muscle flaps, and the muscle flap fascia o verlying the paraspinous muscles was closed with 0 Vicryl [id number] sutures. This released and freed up the trapezius muscle for easily advanced bilateral trapezius muscle flaps which were advanced into position over the paraspinous muscle closure and sutured together with 0 PDS [id number] suture. I then placed a 15 Slovenian Jakob drain over the trapezius muscles. A Chris's fascial closure was then performed with [id number] 2-0 PDS, followed by deep dermal 3-0 Vicryl PDS and 3-0 Monocryl deep dermal's followed by 3-0 Monocryl running subcuticular. The drains were sutured into place with 2-0 silk suture and a Prevena wound VAC was placed over the incision. The patient tolerated the procedure well and was awakened and taken to the PACU in stable condition. Postoperative plan: Plan to keep incisional wound VAC until Monday, 10 June 2024, at which time we will look at the incision and then replaced the incisional wound VAC (anticipate 3 weeks of incisional wound VAC). Continue drain care with every 4 hour emptying and stripping of the drains. Head of bed greater than 45 degrees to pressure offload the incision. Plan for arms at sides and no extreme shoulder abduction/extreme flexion of arms. Plastics will follow. Surgical Findings: Healthy paraspinous muscle used for advancement over the cervical hardware. Able to close trapezius muscle in layers for additional muscle layer closure (however blood supply to trapezius was not isolated and therefore was not billed as a muscle flap). Tire Mechanic service desk analyst: No Complications Complications: No Admit VTE Documentation VTE Mechan Device Prophylaxis: SCD's
--- NOTE | 2024-06-04 19:42 | PCM.POST.ANE ---
Anesthesia: Postop Eval I Current Vital Signs Temperature: 97 F Pulse Rate: 77 Blood Pressure: 151/80 Respiratory Rate: 19 Pulse Ox: 100 Assessment Airway patent: Yes Spontaneous unlabored respirations: Yes nausea: No Vomiting: No Anesthesia Complication: No Fluid Hydration Crystalloid volume administer (ml): 2,000 Total IV fluid infused: 2,000 Progress Note Anesthesia document: Postop Eval 1 completed: Yes
--- NOTE | 2024-06-04 19:44 | POSTOPAN2_ITS ---
Anesthesia Postop Eval I Sum Postop Eval Completion status Anesthesia document: Postop Eval 1 completed: Yes Anesthesia Postop Eval I Summary Anesthesia Postop Eval I Summary: Anesthesia Postop Eval I: Assessment Summary Airway patent Yes 06/04/24 19:42 PROFESSOR OF [email or web address].[email or web address] Spontaneous unlabored Yes 06/04/24 19:42 PROFESSOR OF HISTORY.CSIR respirations Mental status nausea No 06/04/24 19:42 PROFESSOR OF HISTORY.CSIR Vomiting No 06/04/24 19:42 PROFESSOR OF HISTORY.CSIR Anesthesia Postop Eval I: Fluid Summary Crystalloid volume administer 2,000 06/04/24 19:42 PROFESSOR OF HISTORY.CSIR (ml) Colloids volume administered ( ml) Blood Product volume administered (ml) Total IV fluid infused 2,000 06/04/24 19:42 PROFESSOR OF HISTORY.CSIR Anesthesia Postop Eval I: Summary Notes Anesthesia Complication No 06/04/24 19:42 PROFESSOR OF HISTORY.CSIR Anesthesia Complication Comment: Post-operative progress note Anesthesia: Postop Eval II Evaluation Mental status: Awake Pain Level: 0 nausea: No Vomiting: No
--- NOTE | 2024-06-04 19:44 | PCM.POSTANE2 ---
Anesthesia Postop Eval I Sum Postop Eval Completion status Anesthesia document: Postop Eval 1 completed: Yes Anesthesia Postop Eval I Summary Anesthesia Postop Eval I Summary: Anesthesia Postop Eval I: Assessment Summary Airway patent Yes 06/04/24 19:42 GENERAL LABORER.CSIR Spontaneous unlabored Yes 06/04/24 19:42 GENERAL LABORER.CSIR respirations Mental status nausea No 06/04/24 19:42 GENERAL LABORER.CSIR Vomiting No 06/04/24 19:42 GENERAL LABORER.CSIR Anesthesia Postop Eval I: Fluid Summary Crystalloid volume administer 2,000 06/04/24 19:42 GENERAL LABORER.CSIR (ml) Colloids volume administered ( ml) Blood Product volume administered (ml) Total IV fluid infused 2,000 06/04/24 19:42 GENERAL LABORER.CSIR Anesthesia Postop Eval I: Summary Notes Anesthesia Complication No 06/04/24 19:42 GENERAL LABORER.CSIR Anesthesia Complication Comment: Post-operative progress note Anesthesia: Postop Eval II Evaluation Mental status: Awake Pain Level: 0 nausea: No Vomiting: No
[2024-06-04 20:38] LABS: Bedside Glucose 300 mg/dL (74-106)
[2024-06-04] MEDS: Lactated Ringers 1,000 ML 15 ML IV (20:54)
[2024-06-04] MEDS: Methocarbamol 500 MG Tablet 1000 MG PO (22:08)
[2024-06-04] MEDS: Acetaminophen 500 MG Tablet 1000 MG PO (22:09)
[2024-06-04] MEDS: dexAMETHasone 4 MG/ML Vial IV (22:09)
[2024-06-04] MEDS: Insulin Glargine-YFGN 100 UNIT/ML Pen 27 UNIT SC (22:09)
[2024-06-04] MEDS: Senna/Docusate Sodium 1 Tablet 2 TABLET PO (22:09)
[2024-06-04] MEDS: Atorvastatin Calcium 40 MG Tablet PO (22:09)
[2024-06-04] MEDS: Atenolol 25 MG Tablet PO (22:10)
[2024-06-04] MEDS: Insulin Lispro 100 UNIT/ML INSULN.PEN SC (22:21)
[2024-06-04] MEDS: Morphine 2 MG/ML Syringe IV (22:37)
[2024-06-04 22:40] LABS: Bedside Glucose 273 mg/dL (74-106)
[2024-06-05] VITALS (21 sets, daily range): BP systolic 105–150; BP diastolic 55–96; PULSE 64–93; RESP 12–25; TEMP 36.4–36.8; O2SAT 75–100
[2024-06-05] MEDS: oxyCODONE 5 MG Tablet PO ×2 (00:20→20:47)
--- NOTE | 2024-06-05 02:18 | CON.PCM.HO_ITS ---
Assessment & Plan Assessment/Plan (1) Uncontrolled diabetes mellitus: QUALIFIERS: Diabetes mellitus type: type 2 Glycemic state: with hyperglycemia Qualified Code(s): E11.65 - Type 2 diabetes mellitus with hyperglycemia (2) Cervical myelopathy: (3) Myelomalacia of cervical cord: (4) Osteoarthritis: QUALIFIERS: Osteoarthritis location: unspecified site Osteoarthritis type: unspecified Qualified Code(s): M19.90 - Unspecified osteoarthritis, unspecified site (5) Stroke/cerebrovascular accident: QUALIFIERS: CVA mechanism: unspecified Qualified Code(s): I63.9 - Cerebral infarction, unspecified (6) Obesity (BMI 30-39.9): (7) Hypertension: QUALIFIERS: Hypertension type: primary hypertension Qualified Code(s): I10 - Essential (primary) hypertension (8) Hypothyroidism: QUALIFIERS: Hypothyroidism type: unspecified Qualified Code(s): E03.9 - Hypothyroidism, unspecified (9) Hyperlipidemia: QUALIFIERS: Hyperlipidemia type: unspecified Qualified Code(s): E78.5 - Hyperlipidemia, unspecified PLAN: Plan 1. Iatrogenic Hyperglycemia due to IV dexamethasone in the setting of known DM- 2; on insulin glargine 27 units sq q. PM, lispro insulin 9 units sq TID and Jardiance plus SSI AC/HS - Continue current insulin regimen except increase SSI to the highest intensity regimen until he can be weaned off his steroids. Check HgbA1c to objectively assess quality of diabetic control. ADA diet. 2. Recently diagnosed cervical myelopathy with myelomalacia of the cervical cord who was recently hospitalized for cervical spinal stenosis with Right cervical radiculopathy causing Right upper extremity weakness and paresthesias with patient transferred from TCU to the service of ortho-spine surgeon Dr. Henry Hernandez with patient postoperative day #0 after C3-C7 laminectomy with C3- T1 posterior spinal instrumented fusion - Noted. Resume standard postoperative treatment as already ordered. 3. Osteoarthritis; of both knees with chronic debility and generalized weakness on meloxicam complicating #1 & #2 - Continue Meloxicam as previous. 4. History of CVA x 2; with residual dysequilibrium after his first stroke but not after his second adding to the medical complexity of #1 - #3 - Noted. 5. Obesity; with a BMI of 38.3 this admission - Weight loss will be recommended. This complicates his case and may hamper recovery. 6. Essential hypertension; on losartan, atenolol and furosemide - Resume current regimen plus give prn IV Hydralazine for systolic blood pressure > 160 mmHg. 7. Hypothyroidism - Resume Synthroid as previous. 8. Hyperlipidemia; on atorvastatin - Maintain current regimen. 9. Diabetic neuropathy - Stable. 10. CAD - Noted with no apparent active cardiac issues at this time. 11. PVD - Stable. 12. Chronic venous stasis dermatitis - Noted. 13. History of nephrolithiasis - Noted. 14. History of appendectomy - Noted. 15. History of cholecystectomy - Noted. 16. History of tonsillectomy - Noted for the sake of completeness. 17. Listed allergy to PCN (?) - Noted. 18. Listed allergy to iodine (?) - Noted. 19. DVT prophylaxis - As per orthopedic team with SCD's in place. Total time: Approximately (but not less than) 45 minutes. HPI Consult Data Date of Consult: 06/05/24 HPI Narrative Reason for Consultation: Medical Management of DM-2. HPI Narrative: PHILLIP ARCHER, is a 83 M with a past medical history of essential hypertension; on losartan, atenolol and furosemide, hypothyroidism, hyperlipidemia; on atorvastatin, obesity; with a BMI of 38.3 this admission, DM-2; of unknown control on insulin glargine 27 units sq q. PM, lispro insulin 9 units sq TID and Jardiance plus SSI AC/at bedtime, diabetic neuropathy, CAD, history of CVA x 2; with residual dysequilibrium after his first stroke but not after his second, PVD, chronic venous stasis dermatitis, history of nephrolithiasis, history of appendectomy, history of cholecystectomy, history of tonsillectomy, listed allergy to PCN (?), listed allergy to iodine (?), osteoarthritis; of both knees with chronic debility and generalized weakness on meloxicam and recently diagnosed cervical myelopathy with myelomalacia of the cervical cord who was recently hospitalized for cervical spinal stenosis with Right cervical radiculopathy causing Right upper extremity weakness and paresthesias with patient transferred from TCU to the service of ortho-spine surgeon Dr. Henry Hernandez with patient postoperative day #0 after C3-C7 laminectomy with C3-T1 posterior spinal instrumented fusion with patient noted to have hyperglycemia of 273 mg/dL prompting hospitalist consult for diabetes management. Mr. Archer was started on dexamethasone 4 mg IV q6 hours with unavoidable iatrogenic hyperglycemia that is moderate and relatively well-tolerated. He was already restarted on his home insulin regimen but he will be started on the highest intensity SSI until he is finished with his steroid therapy. He states his pain is relatively well-controlled with two YEHUDA drains and a Wound-Vac currently in place. He denies other significant complaints at this time other than feeling hot so he was given a fan in his room which helped to make him more comfortable. He denies associated fever, chills, nausea, vomiting, diarrhea, constipation, chest pain, SOB, cough, headache or dysphagia and he is using his Right arm without significant difficulty. Thank you for allowing us to participate in the care of your patient. [facility] Medical History Abrasion Insulin dependent diabetes mellitus Thyroid disease Diabetes Non-smoker History of edema Nephrolithiasis Uncontrolled diabetes mellitus Lactose intolerance Debility Bilateral edema of lower extremity Osteoarthritis Stroke/cerebrovascular accident Hypothyroid High cholesterol Diabetes Hypertension Home Medications ?Medication ?Instructions ?Recorded ?Last Taken ?Type aspirin 325 mg tablet 325 mg PO DAILY@0800 HEALTH 08/20/16 05/31/24 History MAINTENANCE atenolol 25 mg tablet 25 mg PO QHS BP 08/20/16 11/19/23 22:55 History atorvastatin 40 mg tablet 40 mg PO QHS CHOLESTEROL 08/20/16 05/30/24 History levothyroxine 75 mcg tablet 75 mcg PO DAILY THYROID 08/20/16 06/04/24 History nitroglycerin 0.4 mg sublingual 0.4 mg sublingual Q5M PRN Chest 08/20/16 Unknown History tablet Pain insulin glargine-yfgn 100 unit/mL 27 unit subcut QHS Diabetes 12/19/22 11/19/23 23:25 History (3 mL) subcutaneous pen insulin lispro 100 unit/mL 9 unit subcut TID Diabetes 12/19/22 11/20/23 History subcutaneous pen (Humalog KwikPen (U-100) Insulin) glucosamine-chondroitin 250 mg-200 2 tab PO TID Supplement 11/16/23 Unknown History mg tablet (Osteo Bi-Flex) losartan 100 mg tablet 100 mg PO DAILY BP 11/16/23 06/04/24 History omega 8-ejj-xym-fish oil 1,200 mg 1 cap PO BID Supplement 11/16/23 11/20/23 History (144 mg-216 mg) capsule (Fish Oil) acetaminophen 500 mg tablet 1,000 mg (2 x 500 mg) PO Q6H PRN 12/07/23 Unknown Rx PRN Pain Score 1-10 #0 tabs furosemide 40 mg tablet 40 mg PO DAILY Fluid retention 30 12/07/23 Unknown Rx days #30 tabs empagliflozin 25 mg tablet 25 mg PO DAILY Blood sugar 05/28/24 Unknown History (Jardiance) meloxicam 7.5 mg tablet 7.5 mg PO DAILY Osteoarthristis 05/28/24 Unknown History mupirocin 2 % topical ointment 1 applic topical TID Skin condition 05/28/24 Unknown History dexamethasone 4 mg tablet 8 mg (2 x 4 mg) PO TID Steroid #0 05/31/24 05/31/24 Rx tabs insulin lispro 100 unit/mL See Protocol subcut ACHS Blood 05/31/24 Unknown Rx subcutaneous pen (Humalog KwikPen sugar #0 mL (U-100) Insulin) nutrition tx glu 120 ml PO TIDCM supplement #0 mL 05/31/24 Unknown Rx intol,lac-free,soy-fiber 0.06 gram-1.2 kcal/mL liquid (Glucerna 1.2 Jai) hydrochlorothiazide 12.5 mg capsule 12.5 mg PO DAILY bp 06/04/24 Unknown History Allergy/AdvReac Type Severity Reaction Status Date / Time iodine Allergy Swelling Verified 05/28/24 19:28 Penicillins AdvReac Mild PT UNSURE Verified 05/28/24 19:28 OF REACTION Surgical History History of tonsillectomy History of appendectomy History of cholecystectomy Social History household members: none Smoking Status: Never smoker alcohol intake: never substance use type: does not use ROS ROS Narrative Review of Systems: Constitutional: Patient denies fever or chills. Eyes: Patient denies changes in vision or discharge from eyes. ENT: Patient denies runny nose, sore throat or ear pain. Resp: Patient denies SOB or cough. CV: Patient denies chest pain, palpitations or heart racing. GI: Patient denies abdominal pain, nausea, vomiting, diarrhea or constipation. : Patient denies dysuria or hematuria. MSK: Patient admits to neck discomfort made worse with movement that is currently well-controlled with rigid cervical collar in-place. Skin: Patient denies rash, abscess or jaundice. Psych: Patient denies symptoms of uncontrolled depression or anxiety. Neuro: Patient denies headache, paresthesias or focal neurologic deficits. Allergy: Patient denies lip swelling, tongue swelling or urticaria. Hematology: Patient denies easy bleeding or easy bruisability. Endocrinology: Patient noted to have elevated blood glucose of 273 mg/dL this evening after surgery while on dexamethasone. 14 point ROS otherwise negative except for positives noted above except for positives noted above in HPI. Physical Exam Const alert, oriented x3 and no apparent distress Constitutional Narrative: Obese patient with chronically ill but nontoxic appearance in rigid cervical collar. General Appearance: cooperative HEENT normocephalic, head/scalp atraumatic, hearing grossly normal bilaterally and moist oral mucous membranes Eyes PERRL and EOMs intact bilaterally Neck Neck Narrative: Patient has a rigid cervical collar in-place. Resp normal respiratory effort, no retractions, no use of accessory muscles and clear to auscultation bilaterally Cardio regular rate and regular rhythm GI normal to inspection, nondistended, normoactive bowel sounds, soft to palpation, non-tender and non-distended GI Narrative: Obese. Extremity normal to inspection, full ROM and no clubbing, cyanosis or edema Skin Skin Narrative: Patient has chronic venous stasis dermatitis with SCD's in place. Neuro oriented x3, CN's II-XII intact bilaterally, moves all extremities, no focal motor deficits and no sensory deficits noted Sensorium / Orientation: awake, alert, oriented to person, oriented to place and oriented to time Speech: speech normal Psych affect normal Medical Records Data Attestation: I reviewed the patient's medical records Lab / Micro Data Attestation: I reviewed the patient's lab results. Labs: Laboratory Results - last 24 hr 06/04/24 12:14: POC Glucose 131 H 06/04/24 20:19: POC Glucose 300 H 06/04/24 22:05: POC Glucose 273 H Charges/Coding Multi Select Codes Visit Charges Office Visit/Consults: 92588 IP Consult L3
[2024-06-05] MEDS: Acetaminophen 500 MG Tablet 1000 MG PO ×2 (05:00→21:54)
[2024-06-05] MEDS: Levothyroxine 75 MCG Tablet PO (05:00)
[2024-06-05] MEDS: Clindamycin 900 MG/50 ML BAG 75 MG IV ×3 (05:00→23:07)
[2024-06-05] MEDS: dexAMETHasone 4 MG/ML Vial IV ×3 (05:00→21:49)
[2024-06-05 07:40] LABS: Hematocrit 43.2 % (40-54); Hemoglobin 13.6 g/dL (13.0-16.5); Mean Corp Hgb Conc 31.5 g/dL (32-36); Mean Corpuscular Hgb 27.4 pg (27.0-32.0); Mean Corpuscular Volume 86.9 fL (80-94); Mean Platelet Vol. 11.2 fl (6.2-12.0); Platelet Count 195 K/mm3 (150-450); RBC Distribution Width CV 13.7 % (11.6-14.6); RBC Distribution Width SD 43.7 fl (35.1-43.9); Red Blood Count 4.97 M/mm3 (4.6-6.2); White Blood Count 18.3 K/mm3 (4.4-11.0)
[2024-06-05] MEDS: Insulin Lispro 100 UNIT/ML INSULN.PEN 9 UNIT SC ×2 (07:59→11:06)
[2024-06-05] MEDS: Insulin Lispro 100 UNIT/ML INSULN.PEN SC ×4 (08:00→21:53)
[2024-06-05] MEDS: Losartan Potassium 100 MG Tablet PO (08:01)
[2024-06-05] MEDS: Furosemide 40 MG Tablet PO (08:02)
[2024-06-05] MEDS: Empagliflozin 25 MG Tablet PO (08:02)
[2024-06-05] MEDS: Methocarbamol 500 MG Tablet 1000 MG PO (08:03)
[2024-06-05] MEDS: Senna/Docusate Sodium 1 Tablet 2 TABLET PO ×2 (08:04→21:54)
[2024-06-05] MEDS: 0.9% Saline Lock 10 ML Syringe IV ×4 (08:05→17:50)
--- NOTE | 2024-06-05 08:05 | PCM.PN.SRG ---
Subjective Subjective Pain controlled. Patient doing well this morning. Objective Data Objective Data Vital Signs: Vital Signs Temp Pulse Resp BP Pulse Ox O2 Del Method O2 Flow Rate 97.9 F 67 16 124/58 H 94 Room Air 2 06/05/24 05:00 06/05/24 05:00 06/05/24 05:00 06/05/24 05:00 06/05/24 05:00 06/05/24 05:00 06/04/24 20:45 Oxygen Flow Rate (L/min) 2 Oxygen Delivery Method Room Air Weight: 244 lb 11.41 oz Body Mass Index (BMI) 38.3 Intake & Output: Intake and Output for Last 24 Hours 06/03/24 06/04/24 06/05/24 23:59 23:59 23:59 Intake Total 2320 / 2760 440 / 440 Output Total 640 / 665 Balance 1680 / 2095 415 / 415 Lab / Micro Data 06/05/24 05:07 06/05/24 05:07 Labs: Laboratory Results - last 24 hr 06/04/24 12:14: POC Glucose 131 H 06/04/24 20:19: POC Glucose 300 H 06/04/24 22:05: POC Glucose 273 H 06/05/24 05:07: WBC 18.3 H, RBC 4.97, Hgb 13.6, Hct 43.2, MCV 86.9, MCH 27.4, MCHC 31.5 L, RDW Std Deviation 43.7, RDW Coeff of Tyesha 13.7, Plt Count 195, MPV 11.2 Physical Exam Narrative Head and neck: Drains SS, Strip well, no clot. VAC holding suction over incision. Shrugs shoulders. Const alert and oriented x3 Eyes EOMs intact bilaterally Neck Neck Narrative: C collar in place No pressure over the incision. Patient sitting up Resp normal respiratory effort Cardio regular rate Extremity Extremity Narrative: SCDs on and activated 5+ cyber defense incident responder strength bilaterally on my exam today. Sensation to light touch intact on the upper extremities throughout. Assessment & Plan Assessment/Plan (1) Cervical myelopathy: PLAN: S/p muscle flap closure for cervical spine POST-OPERATIVE PLAN Plan to keep incisional wound VAC until Monday, 10 June 2024, at which time we will look at the incision and then replaced the incisional wound VAC (anticipate 3 weeks of incisional wound VAC). Continue drain care with every 4 hour emptying and stripping of the drains. Drains to stay in until consistently less than 30 cc in 24 hour period. Head of bed greater than 45 degrees to pressure offload the incision. Plan for arms at sides and no extreme shoulder abduction/extreme flexion of arms. Plastics will follow. Charges/Coding Procedures Integumentary [id number]: [id number] Global Visit
[2024-06-05] MEDS: Meloxicam 15 MG Tablet PO (08:07)
[2024-06-05] MEDS: Morphine 2 MG/ML Syringe IV (08:18)
--- NOTE | 2024-06-05 08:35 | RAD_ITS ---
STUDY: X-RAY - CERVICAL SPINE REASON FOR EXAM: Male, 83 years old. Postop pain TECHNIQUE: 3 view(s) of the cervical spine were obtained. COMPARISON: 06/03/2024 FINDINGS: Since the previous study, patient has undergone posterior pedicle screw fusion surgery from C3 to T1. Hardware is intact and free of complication. Normal anterior atlantoaxial articulation. Normal odontoid process. There is straightening of the normal cervical lordosis. There is diffuse demineralization of the cervical spine. There is multi-level degenerative disc disease with multilevel disc space narrowing Stable prominent spurring anterior to C3. There is soft tissue swelling anterior to C6 likely postoperative, follow-up recommended to assure resolution RAD/Cerv Spine 2 or 3 Views IMPRESSION: Degenerative and postoperative changes in the cervical spine without acute fracture or postoperative complication. Prevertebral soft tissues soft tissue swelling likely postsurgical Electronically Signed: Jamil Alvarado MD at 12:41 EST ,
[2024-06-05 08:42] LABS: Bedside Glucose 279 mg/dL (74-106)
[2024-06-05 08:43] LABS: Anion Gap 13 (5-15); BUN 74 mg/dL (7-18); BUN/Creat Ratio 38.3 RATIO (10-20); Calcium,Total 8.4 mg/dL (8.5-10.1); Chloride 105 mmol/L (98-107); Creatinine, Serum 1.93 mg/dL (0.70-1.30); EST Glomerular Filtration Rate 35 mL/min (>60); Est Glom Filt Rate - Afr Amer 43 mL/min (>60); Estimated Creatinine Clearance 33.88 ml/min; Glucose 310 mg/dL (74-106); Potassium 5.3 mmol/L (3.5-5.1); Sodium Level 136 mmol/L (136-145)
[2024-06-05 10:47] LABS: Bedside Glucose 278 mg/dL (74-106)
--- NOTE | 2024-06-05 11:11 | NURSING ---
DR ROSS IN TO ASSESS PT. CXR ORDERED AND VALIUM X1. PT STILL C/O DIZZINESS AND BLURRED VISION.
--- NOTE | 2024-06-05 11:15 | CASEMGMT ---
Social Work Pt is admitted from TCU. Per post acute physician, pt would benefit from Inpatient Rehabilitation after hospital stay. SW attempted to meet with pt to discuss options. Pt with medical complications at this time. SW to follow up tomorrow. TERESA Apple
--- NOTE | 2024-06-05 11:41 | CT_ITS ---
STUDY: CT BRAIN WITHOUT CONTRAST REASON FOR EXAM: Male, 83 years old. BLURRED VISION/BLEED? RADIATION DOSAGE (If Supplied By Facility): CTDIvol = ( 44.99 ) mGy, DLP = ( 863.60 ) mGycm TECHNIQUE: Transaxial CT imaging of the brain was performed without administration of intravenous contrast material. Individualized dose optimization techniques were used for this CT. COMPARISON: MR brain from 05/29/2024 FINDINGS: Normal soft tissue structures. Normal calvarium. There is mild cerebral atrophy with widening of the extra-axial spaces and ventricular dilatation. There are areas of decreased attenuation within the white matter tracts of the supratentorial brain, consistent with microvascular disease changes. Normal basal ganglia and thalami. Normal brainstem. Normal cerebellum. Mucous retention cysts/polyp in the maxillary sinuses There is no intracranial hemorrhage. There are no findings of an acute ischemic infarction. Normal visualized paranasal sinuses. CT/Brain/Head without Contrast IMPRESSION: Chronic involutional changes of the brain, no acute hemorrhage. Electronically Signed: Jamil Alvarado MD at 12:35 EST ,
[2024-06-05 11:45] LABS: Allen Test Positive; Base Excess -8 mmol/L (-2 to +2); Bicarbonate 17.9 mmol/L (22-26); Blood Gas Specimen Type ART; Mode Not entered; O2 Delivery Device NRB; PO2 60 mmHG (75-100); SITE R Radial; SO2 89 % (95-99); Total Carbon Dioxide 19 mmol/L; pCO2 33.5 mmHg (35-45); pH 7.34 (7.35-7.45)
--- NOTE | 2024-06-05 11:57 | NURSING ---
placed on non rebreather and tele. dr jenkins back in to see pt. stat ct head/brain and cxr ordered. abg obtained. pt now reports not being able to see at all.
--- NOTE | 2024-06-05 12:40 | CT_ITS ---
We are attempting to reach an attending provider to discuss findings. An addendum with communication details will be sent when the communication is complete. EXAM: CT ANGIOGRAPHY CHEST WITHOUT AND WITH INTRAVENOUS CONTRAST CLINICAL INDICATION: HYPOXIA TECHNIQUE: Helically acquired angiography images were obtained of the chest without and with intravenous contrast. This CT exam was performed using one or more of the following dose reduction techniques: automated exposure control, adjustment of the mA and/or kV according to patient size, and/or use of iterative reconstruction technique. MIP reconstructed images were created and reviewed. CONTRAST: IV 100mL [id number] COMPARISON: No relevant prior studies available. FINDINGS: PULMONARY ARTERIES: There are no large main stem filling defects. AORTA: Unremarkable. Normal in caliber. No evidence of dissection. GREAT VESSELS OF AORTIC ARCH: Unremarkable. Normal in caliber. No evidence of dissection. LUNGS AND PLEURAL SPACES: There are low-density filling defects in the left upper and lower lobe segmental and subsegmental pulmonary arteries as well as the right upper and middle lobe segmental and subsegmental pulmonary arteries. There is minimal atelectasis in the right lung base. No mass. No pleural effusion or thickening. No pneumothorax. HEART: The right ventricle measures 4.6 cm the left ventricle measures 3.4 cm. Heart size is normal. No pericardial effusion. No significant coronary artery calcifications. MEDIASTINUM: Unremarkable. No mediastinal or hilar adenopathy. Esophagus is unremarkable. No hiatal hernia. THYROID: Unremarkable. No thyroid lesions. BONES/JOINTS: Unremarkable. No suspicious lytic or blastic abnormality. CT/CTA Chest W/WO Contrast IMPRESSION: Bilateral upper lobe segmental and subsegmental pulmonary artery emboli with left lower lobe and right middle lobe pulmonary emboli also present. There is enlargement of the right ventricle indicating right heart strain. There is no large main stem emboli present. Electronically Signed: Sloan Demarco MD at 16:58 EST ,
--- NOTE | 2024-06-05 12:50 | PCM.PN.ORT ---
Subjective Subjective POD 1 C3-C7 laminectomy, bilateral C6-7 and C7-T1 foraminotomies, C3-T1 posterior instrumented spinal fusion. Seen with Dr. Hernandez. Upon arrival, patient was lightheaded and short of breath while sitting in bed with the head elevated. When standing with therapy his pulse ox dropped to 70%, 4L nasal canula was started and O2 improved. Discussed with hospitalist and patient was moved to the ICU. Objective Data Objective Data Vital Signs: Vital Signs Temp Pulse Resp BP Pulse Ox O2 Del Method O2 Flow Rate 97.8 F 64 14 126/65 H 95 Nasal Cannula 4 06/05/24 09:56 06/05/24 09:56 06/05/24 09:56 06/05/24 09:56 06/05/24 10:30 06/05/24 10:30 06/05/24 10:30 Oxygen Flow Rate (L/min) 4 Oxygen Delivery Method Nasal Cannula Weight: 244 lb 11.41 oz Body Mass Index (BMI) 38.3 Intake & Output: Intake and Output for Last 24 Hours 06/03/24 06/04/24 06/05/24 23:59 23:59 23:59 Intake Total 2320 / 2760 490 / 490 Output Total 640 / 665 57 / 57 Balance 1680 / 2095 433 / 433 Lab / Micro Data 06/05/24 05:07 06/05/24 05:07 Labs: Laboratory Results - last 24 hr 06/04/24 20:19: POC Glucose 300 H 06/04/24 22:05: POC Glucose 273 H 06/05/24 05:07: WBC 18.3 H, RBC 4.97, Hgb 13.6, Hct 43.2, MCV 86.9, MCH 27.4, MCHC 31.5 L, RDW Std Deviation 43.7, RDW Coeff of Tyesha 13.7, Plt Count 195, MPV 11.2, Sodium 136, Potassium 5.3 H, Chloride 105, Carbon Dioxide 18.0 L, Anion Gap 13, BUN 74 H, Creatinine 1.93 H, Estim Creat Clear Calc 33.88, Est GFR (MDRD) Af Amer 43 L, Est GFR (MDRD) Non-Af 35 L, BUN/Creatinine Ratio 38.3 H, Glucose 310 H, Hemoglobin A1c 11.0 H, Calcium 8.4 L 06/05/24 07:58: POC Glucose 279 H 06/05/24 10:29: POC Glucose 278 H ABG Data ABG results: ABG 06/05/24 11:41 Specimen Type ART Sample Site R Radial pH 7.34 L Bicarbonate Actual 17.9 L Total CO2 19 Base Excess -8 L O2 Saturation 89 L O2 % 100.0 ABG pCO2 33.5 L ABG pO2 60 L Dustin Test Positive O2 Delivery Device NRB Vent Mode Not entered Radiography Diagnostic Testing: Radiology Impression Cervical Spine X-Ray 06/05/24 08:35 IMPRESSION: Degenerative and postoperative changes in the cervical spine without acute fracture or postoperative complication. Prevertebral soft tissues soft tissue swelling likely postsurgical Electronically Signed: Jamil Alvarado MD at 12:41 EST , Brain CT 06/05/24 11:41 IMPRESSION: Chronic involutional changes of the brain, no acute hemorrhage. 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 Normal sensation across all dermatomes. Const alert and oriented x3 Assessment & Plan Assessment/Plan (1) Status post cervical spinal fusion: PLAN: Plan Xrays done today look good. He stood with therapy and worked on pivoting and transfers however he became lightheaded and short of breath. Patient's pain is well managed on current regimen. Patient moved to ICU for low oxygen levels. Medical management per ICU hospitalist.
--- NOTE | 2024-06-05 13:10 | RAD_ITS ---
STUDY: X-RAY CHEST REASON FOR EXAM: Male, 83 years old chest pain/pressure TECHNIQUE: Single AP portable view of the chest. COMPARISON: 05/28/2024 FINDINGS: EKG leads overlie the chest. Stable elevation right hemidiaphragm Lungs remain underexpanded with persistent bibasilar atelectasis. No interval change since the previous study. Normal size heart. Normal mediastinum and nghia. Normal visualized pulmonary arteries. Normal visualized aortic arch and descending thoracic aorta. Normal visualized thoracic spine. Normal visualized ribs, clavicles, and shoulders. There is no demonstrated abnormality of the visualized soft tissue structures of the upper abdomen. RAD/Chest 1 View (Portable) IMPRESSION: No interval change Electronically Signed: Jamil Alvarado MD at 13:46 EST ,
--- NOTE | 2024-06-05 13:31 | EX.PCM.CONCC ---
Assessment & Plan Assessment/Plan (1) Acute hypoxemic respiratory failure: PLAN: Plan RECOMMENDATIONS: 1. Obtain stat chest x-ray. 2. If no discernible pathology is identified on chest x-ray, obtain CTA chest to rule out PE. 3. Stop Lasix given KELVIN. 4. Hold all sedating medications. 5. Continue supplemental oxygen to maintain saturations at or above 90%. IMPRESSIONS: 1. Acute hypoxemic respiratory failure Unclear precipitating etiology. We are awaiting a plain film chest x-ray. If there is no discernible pathology identified on plain film chest imaging, we will proceed with CTA chest to rule out PE. In the interim, continue supplemental oxygen as tolerated to maintain saturations at or above 90%. 2. Encephalopathy I suspect this is likely secondary to administration of morphine and methocarbamol in the setting of acute renal insufficiency. CT head revealed chronic involutional changes of the brain. In light of his history of hypothyroidism, will check TSH as well. Otherwise, I would continue to hold all sedating medications for now. 3. Acute kidney injury Most likely prerenal in etiology. Recommend holding the patient's Lasix. Avoid nephrotoxic medications. Continue to monitor urine output for now. No current indication for renal replacement therapy. 4. Cervical spinal stenosis now postop day #1 status post C3-C7 laminectomy with C3-T1 posterior spinal fusion Continue routine postoperative care per surgery services. 5. Recent history of CVA/obesity/hypertension/hyperlipidemia/hypothyroidism/coronary artery disease/neuropathy Complicates care, management, recovery and prognosis. Continue supportive measures as noted above. This note was generated with [employer] dictation software. It may contain incorrect words, spelling, and punctuation that were not noted in checking the note before signing. HPI Consult Data Date of Consult: 06/05/24 HPI Narrative Reason for Consultation: Hypoxemia HPI Narrative: The patient is an 83-year-old male, with a history as outlined below, who presented as a transfer of care from the TCU to the service of spine surgery after CT imaging demonstrated severe stenosis of the C-spine with cord compression in the setting of severe progressive cervical myelopathy. The patient was ultimately taken to the OR by Dr. Gaspar on June 04 and underwent a C3-7 laminectomy, bilateral C6/7 and C7/T1 foraminotomies and C3-T1 posterior instrumented spinal fusion. This was then followed by plastic surgery who performed a paraspinous muscle advancement flap for closure of the cervical spine wound. The procedure was completed around 7 PM on the evening of June 04. The patient has a number of medical comorbidities including hypertension, hypothyroidism, obesity, diabetes mellitus, prior CVA, peripheral vascular disease and generalized debility. It appears that sometime this morning, the patient became acutely hypoxemic. The patient does have an elevated white blood cell count at 18,000 along with acute kidney injury with a creatinine of 1.93. His glucose is uncontrolled at 310. An ABG was obtained which demonstrated a pH of 7.34 with a pCO2 of 33 and pO2 of 60. It does appear that the patient is currently receiving Decadron. In addition, the patient did receive IV morphine this morning, along with methocarbamol. The patient was subsequently placed on a nonrebreather mask and a CT head was obtained after the patient reportedly complained of not being able to see. His head imaging study only demonstrated chronic involutional changes of the brain. No chest imaging has been obtained as of yet. REPLACED BY [facility] Medical History Abrasion Insulin dependent diabetes mellitus Thyroid disease Diabetes Non-smoker History of edema Nephrolithiasis Uncontrolled diabetes mellitus Lactose intolerance Debility Bilateral edema of lower extremity Osteoarthritis Stroke/cerebrovascular accident Hypothyroid High cholesterol Diabetes Hypertension Home Medications ?Medication ?Instructions ?Recorded ?Last Taken ?Type aspirin 325 mg tablet 325 mg PO DAILY@0800 HEALTH 08/20/16 05/31/24 History MAINTENANCE atenolol 25 mg tablet 25 mg PO QHS BP 08/20/16 11/19/23 22:55 History atorvastatin 40 mg tablet 40 mg PO QHS CHOLESTEROL 08/20/16 05/30/24 History levothyroxine 75 mcg tablet 75 mcg PO DAILY THYROID 08/20/16 06/04/24 History nitroglycerin 0.4 mg sublingual 0.4 mg sublingual Q5M PRN Chest 08/20/16 Unknown History tablet Pain insulin glargine-yfgn 100 unit/mL 27 unit subcut QHS Diabetes 12/19/22 11/19/23 23:25 History (3 mL) subcutaneous pen insulin lispro 100 unit/mL 9 unit subcut TID Diabetes 12/19/22 11/20/23 History subcutaneous pen (Humalog KwikPen (U-100) Insulin) glucosamine-chondroitin 250 mg-200 2 tab PO TID Supplement 11/16/23 Unknown History mg tablet (Osteo Bi-Flex) losartan 100 mg tablet 100 mg PO DAILY BP 11/16/23 06/04/24 History omega 0-nuw-fge-fish oil 1,200 mg 1 cap PO BID Supplement 11/16/23 11/20/23 History (144 mg-216 mg) capsule (Fish Oil) acetaminophen 500 mg tablet 1,000 mg (2 x 500 mg) PO Q6H PRN 12/07/23 Unknown Rx PRN Pain Score 1-10 #0 tabs furosemide 40 mg tablet 40 mg PO DAILY Fluid retention 30 12/07/23 Unknown Rx days #30 tabs empagliflozin 25 mg tablet 25 mg PO DAILY Blood sugar 05/28/24 Unknown History (Jardiance) meloxicam 7.5 mg tablet 7.5 mg PO DAILY Osteoarthristis 05/28/24 Unknown History mupirocin 2 % topical ointment 1 applic topical TID Skin condition 05/28/24 Unknown History dexamethasone 4 mg tablet 8 mg (2 x 4 mg) PO TID Steroid #0 05/31/24 05/31/24 Rx tabs insulin lispro 100 unit/mL See Protocol subcut ACHS Blood 05/31/24 Unknown Rx subcutaneous pen (Humalog KwikPen sugar #0 mL (U-100) Insulin) nutrition tx glu 120 ml PO TIDCM supplement #0 mL 05/31/24 Unknown Rx intol,lac-free,soy-fiber 0.06 gram-1.2 kcal/mL liquid (Glucerna 1.2 Jai) hydrochlorothiazide 12.5 mg capsule 12.5 mg PO DAILY bp 06/04/24 Unknown History Allergy/AdvReac Type Severity Reaction Status Date / Time iodine Allergy Swelling Verified 05/28/24 19:28 Penicillins AdvReac Mild PT UNSURE Verified 05/28/24 19:28 OF REACTION Surgical History History of tonsillectomy History of appendectomy History of cholecystectomy Social History household members: none Smoking Status: Never smoker alcohol intake: never substance use type: does not use ROS Review of Systems ROS Unobtainable: due to mental status Physical Exam Const Constitutional Narrative: The patient is somnolent but will arouse transiently to his name. He appears chronically ill in appearance. HEENT normocephalic and head/scalp atraumatic Eyes EOMs intact bilaterally and conjunctivae normal Neck Neck Narrative: Rigid cervical collar in place. Chest inspection of chest normal Resp normal respiratory effort Auscultation: diminished lung sounds Cardio regular rate and regular rhythm GI normal to inspection, nondistended, normoactive bowel sounds Extremity no clubbing, cyanosis or edema Skin General Skin Exam: venous stasis and dermatitis Neuro CN's II-XII intact bilaterally and no focal motor deficits Psych Mood & Affect: flat affect Lab / Micro Data 06/05/24 05:07 06/05/24 05:07 Labs: Laboratory Results - last 24 hr 06/04/24 20:19: POC Glucose 300 H 06/04/24 22:05: POC Glucose 273 H 06/05/24 05:07: WBC 18.3 H, RBC 4.97, Hgb 13.6, Hct 43.2, MCV 86.9, MCH 27.4, MCHC 31.5 L, RDW Std Deviation 43.7, RDW Coeff of Tyesha 13.7, Plt Count 195, MPV 11.2, Sodium 136, Potassium 5.3 H, Chloride 105, Carbon Dioxide 18.0 L, Anion Gap 13, BUN 74 H, Creatinine 1.93 H, Estim Creat Clear Calc 33.88, Est GFR (MDRD) Af Amer 43 L, Est GFR (MDRD) Non-Af 35 L, BUN/Creatinine Ratio 38.3 H, Glucose 310 H, Hemoglobin A1c 11.0 H, Calcium 8.4 L 06/05/24 07:58: POC Glucose 279 H 06/05/24 10:29: POC Glucose 278 H ABG Data ABG results: ABG 06/05/24 11:41 Specimen Type ART Sample Site R Radial pH 7.34 L Bicarbonate Actual 17.9 L Total CO2 19 Base Excess -8 L O2 Saturation 89 L O2 % 100.0 ABG pCO2 33.5 L ABG pO2 60 L Dustin Test Positive O2 Delivery Device NRB Vent Mode Not entered Imaging Radiology Impression Cervical Spine X-Ray 06/05/24 08:35 IMPRESSION: Degenerative and postoperative changes in the cervical spine without acute fracture or postoperative complication. Prevertebral soft tissues soft tissue swelling likely postsurgical Electronically Signed: Jamil Alvarado MD at 12:41 EST , Brain CT 06/05/24 11:41 IMPRESSION: Chronic involutional changes of the brain, no acute hemorrhage. Electronically Signed: Jamil Alvarado MD at 12:35 EST , Charges/Coding Visit Charges Inpatient E&M: 22086 Init Hosp L3
--- NOTE | 2024-06-05 14:17 | NURSING ---
1300 PT TRANSFERRED TO ICU10. REPORT GIVEN TO LYNETTE. DR ESTRADA IN TO SEE PT
[2024-06-05] MEDS: DiphenhydrAMINE 50 MG/ML Syringe IV (14:18)
[2024-06-05] MEDS: dexAMETHasone 4 MG/ML Vial 8 MG IV (14:18)
[2024-06-05 14:54] LABS: Thyroid Stim Hormone (TSH) 0.836 uIU/mL (0.358-3.740)
[2024-06-05 16:38] LABS: Allen Test Positive; Base Excess -5 mmol/L (-2 to +2); Bicarbonate 20.6 mmol/L (22-26); Blood Gas Specimen Type ART; Mode Not entered; O2 Delivery Device BiPAP; PEEP 10; PO2 55 mmHG (75-100); SITE R Radial; SO2 88 % (95-99); Total Carbon Dioxide 22 mmol/L; pCO2 34.5 mmHg (35-45); pH 7.38 (7.35-7.45)
[2024-06-05 16:47] LABS: Bedside Glucose 200 mg/dL (74-106)
--- NOTE | 2024-06-05 17:35 | PCM.HOSP.N ---
Hospitalist Note Patient was seen and examined today, patient's oxygen requirement went up drastically today, examination of the patient reveals no rales rhonchi or wheezes. Patient was also confused and stated that he could not see anything. I sent the patient down for a CT scan of his head which showed no acute process, patient has not documented allergy to iodine and I talked with his son for several minutes before his son was able to give consent for his dad to have a CTA of the chest. Patient was transferred into the ICU due to his high oxygen requirement and seen in consultation with critical care who recommended a CTA of the chest be obtained. CTA of the chest was obtained and showed bilateral pulmonary emboli, patient was started on IV heparin, I had discussions with orthopedic surgery about the patient's care. According to the son, patient was a DNR comfort care, however, the son stated that his father would want to be treated medically and so I changed the patient's CODE STATUS to a DNR CC arrest without intubation.
[2024-06-05] MEDS: Heparin Injection (Vial) 5,000 UNIT/ML VIAL 8000 UNIT IV (17:50)
[2024-06-05] MEDS: HEPARIN/D5w 25,000 UNITS 25,000 UNITS/250 ML IV.SOLN. 15 UNITS CONT INF (17:53)
[2024-06-05 17:59] LABS: International Normalized Ratio 1.1
[2024-06-05 18:00] LABS: Partial Thromboplast Time 23.2 Seconds (24.1-36.2)
[2024-06-05 18:11] LABS: BNP,B-Type NATRIURETIC PEPTIDE 171.1 pg/mL (0-100)
[2024-06-05 18:27] LABS: Troponin-I HS 3206 pg/mL (3.0-78.0)
[2024-06-05] MEDS: Atenolol 25 MG Tablet PO (21:54)
[2024-06-05] MEDS: Atorvastatin Calcium 40 MG Tablet PO (21:55)
[2024-06-05] MEDS: Insulin Glargine-YFGN 100 UNIT/ML Pen 27 UNIT SC (21:55)
[2024-06-05 23:10] LABS: Bedside Glucose 178 mg/dL (74-106)
[2024-06-06] VITALS (24 sets, daily range): BP systolic 77–138; BP diastolic 45–77; PULSE 61–89; RESP 15–22; TEMP 36.4–37.2; O2SAT 93–98; BMI 36.8
--- NOTE | 2024-06-06 00:18 | NURSING ---
pt screaming out that he wants to , why are you keeping me alive i want to go, im so miserable, im ready to go! hospitalist notified, ordered a one time dose of morphine 2mg and a presidex drip, did not want the pt to receive ativan since it stays a pts system for too long and it is not good for the elderly.
[2024-06-06] MEDS: Morphine 2 MG/ML Syringe IV (00:25)
[2024-06-06] MEDS: dexMEDEtomidine 400 MCG in 0.9% Normal Saline (100mL Bag) 96 ML 13.9 MCG CONT INF (00:33)
[2024-06-06 00:46] LABS: Partial Thromboplast Time > 250.0 Seconds (24.1-36.2)
--- NOTE | 2024-06-06 03:09 | NURSING ---
PTS BP RUNNING LOW, DECREASED THE PRESIDEX DRIP TO O.8
--- NOTE | 2024-06-06 03:38 | NURSING ---
BP STILL LOW, PRECEDEX DECREASED TO 0.5
--- NOTE | 2024-06-06 04:54 | NURSING ---
d/t the pts low bp, precedex stopped
--- NOTE | 2024-06-06 05:19 | ECHOCS_ITS ---
Reason For Study: Pulmonary Embolism Procedure This was a 2D Doppler, Color Flow transthoracic echocardiogram. The study was technically difficult. Contrast injection was performed. Patient scanned in the upright position due to recent surgery. Patient had a laminectomy and fusion 06/04/24. Exam performed portable in ICU/CCU. Left Ventricle Normal LV size. The estimated ejection fraction is 60 %. Unable to assess diastolic dysfunction. No regional wall motion abnormalities noted. Right Ventricle Severely dilated right ventricle. Moderately decreased right ventricular systolic function. Atria The left and right atria are normal. Mitral Valve There is moderate mitral annular calcification. There is no mitral valve stenosis. No mitral valve insufficiency. Tricuspid Valve There is no tricuspid stenosis. Mild tricuspid valve insufficiency. Pulmonary artery systolic pressure is 45-50 mmHg. Aortic Valve Trisinus/trileaflet aortic valve. There is no aortic stenosis. No aortic valve insufficiency. Pulmonic Valve There is no pulmonic valvular stenosis. No pulmonic valve insufficiency. Great Vessels Normal aortic root. Pericardium/Pleural No pericardial effusion. Medication Diluted definity 5ml given slow IV push to enhance endocardial definition. MMode/2D Measurements & Calculations LVIDd: 3.9 cm IVSd: 0.74 cm Ao root diam: 3.6 cm LVIDs: 3.2 cm LVPWd: 0.85 cm RVDd: 4.7 cm FS: 19.6 % LAV(MOD-sp2): 30.2 ml LVAd ap4: 31.5 cm2 SV(MOD-sp4): 52.5 ml LVLd ap4: 8.1 cm SI(MOD-sp4): 23.9 ml/m2 EDV(MOD-sp4): 102.6 ml EDV(sp4-el): 104.7 ml LVAs ap4: 20.4 cm2 LVLs ap4: 7.2 cm ESV(MOD-sp4): 50.1 ml ESV(sp4-el): 49.3 ml EF(MOD-sp4): 51.1 % EF(sp4-el): 52.9 % SV(sp4-el): 55.3 ml LA dimension(2D): 3.7 cm RA A4 area: 20.3 cm2 TAPSE: 1.3 cm Time Measurements MV dec time: 0.25 sec Doppler Measurements & Calculations MV E max marcio: 40.9 cm/sec Lat Peak E' Marcio: 6.1 cm/sec Med Peak E' Marcio: 4.4 cm/sec MV A max marcio: 72.0 cm/sec E/E' lat: 6.7 E/E' med: 9.4 MV E/A: 0.57 MV V2 max: 86.7 cm/sec MV P1/2t max marcio: 52.0 cm/sec Ao V2 max: 124.9 cm/sec MV max P.0 mmHg MV P1/2t: 100.5 msec Ao max P.2 mmHg MV V2 mean: 39.9 cm/sec Ao V2 mean: 80.4 cm/sec MV mean P.77 mmHg MV dec slope: 151.6 cm/sec2 Ao mean P.1 mmHg MV V2 VTI: 25.1 cm MVA(P1/2t): 2.2 cm2 Ao V2 VTI: 21.7 cm AV (velocity ratio): 0.67 LV V1 max: 74.5 cm/sec TR max marcio: 306.9 cm/sec LV V1 max P.2 mmHg TR max P.7 mmHg LV V1 mean P.2 mmHg LV V1 mean: 50.4 cm/sec LV V1 VTI: 14.5 cm ECHO/Echo Complete W/ Contrast Interpretation Summary The estimated ejection fraction is 60 %. Unable to assess diastolic dysfunction. Severely dilated right ventricle. Moderately decreased right ventricular systolic function Ordering Physician: Antony Olvera Referring Physician: Henry Hernandez Performed By: Shahbaz Browne RCS
[2024-06-06] MEDS: Clindamycin 900 MG/50 ML BAG 75 MG IV ×3 (05:42→21:40)
[2024-06-06] MEDS: Levothyroxine 75 MCG Tablet PO (06:35)
[2024-06-06] MEDS: Insulin Lispro 100 UNIT/ML INSULN.PEN SC ×3 (06:38→21:59)
[2024-06-06 07:05] LABS: Bedside Glucose 201 mg/dL (74-106)
[2024-06-06] MEDS: 0.9% Saline Lock 10 ML Syringe IV ×3 (08:05→21:40)
[2024-06-06] MEDS: Losartan Potassium 100 MG Tablet PO (08:06)
[2024-06-06] MEDS: Furosemide 40 MG Tablet PO (08:06)
[2024-06-06] MEDS: Empagliflozin 25 MG Tablet PO (08:06)
[2024-06-06] MEDS: Senna/Docusate Sodium 1 Tablet 2 TABLET PO (08:07)
[2024-06-06] MEDS: Insulin Lispro 100 UNIT/ML INSULN.PEN 9 UNIT SC ×2 (08:10→17:16)
--- NOTE | 2024-06-06 08:11 | PCM.PN.INT ---
Assessment & Plan Assessment/Plan (1) Acute hypoxemic respiratory failure: PLAN: Plan RECOMMENDATIONS: 1. Supplemental oxygen to maintain saturations at or above 90%. 2. Continue weight-based heparin infusion. 3. Recommend holding Lasix. IMPRESSIONS: 1. Acute hypoxemic respiratory failure secondary to bilateral pulmonary emboli The patient was noted to have bilateral pulmonary emboli on CTA with evidence of right heart strain. BNP and troponin were accordingly elevated. Surface echocardiogram for follow-up is pending. Otherwise, the patient has been initiated on a weight-based heparin infusion. Continue to wean supplemental oxygen as tolerated. CODE STATUS confirmed to be DNR CCA without intubation. 2. Encephalopathy Improved. I suspect this is likely secondary to administration of morphine and methocarbamol in the setting of acute renal insufficiency. CT head revealed chronic involutional changes of the brain. TSH was within normal limits. 3. Acute kidney injury Most likely prerenal in etiology. Recommend holding the patient's Lasix. Avoid nephrotoxic medications. Continue to monitor urine output for now. No current indication for renal replacement therapy. 4. Cervical spinal stenosis now postop day #2 status post C3-C7 laminectomy with C3-T1 posterior spinal fusion Continue routine postoperative care per surgery services. 5. Recent history of CVA/obesity/hypertension/hyperlipidemia/hypothyroidism/coronary artery disease/neuropathy Complicates care, management, recovery and prognosis. Continue supportive measures as noted above. This note was generated with [employer] dictation software. It may contain incorrect words, spelling, and punctuation that were not noted in checking the note before signing. Subjective Subjective The patient was seen and examined at the bedside this morning. Events from the last 24 hours have been reviewed. The patient is currently afebrile, hemodynamically stable and maintaining appropriate oxygen saturations on heated high flow oxygen with an FiO2 requirement of 64% and flow rate of 60 L/min. The patient is more alert and interactive this morning, but remains overall confused. He remains on a weight-based heparin infusion after PE was identified on CT imaging of the chest yesterday. White blood cell count is elevated at 22,000. Creatinine is relatively stable at 2.0. Objective Data Objective Data The patient's most recent lab work, culture data and imaging studies have all been personally reviewed. Vital Signs: Vital Signs Temp Pulse Resp BP Pulse Ox O2 Del Method O2 Flow Rate 98.1 F 83 20 H 133/77 H 94 Airvo 60 12/05/24 07:00 06/06/24 07:16 06/06/24 07:16 06/06/24 07:00 06/06/24 07:16 06/06/24 07:16 06/06/24 07:16 FiO2 65 06/06/24 07:16 Oxygen Flow Rate (L/min) 60 Oxygen Delivery Method Airvo Weight: 235 lb 3.732 oz Body Mass Index (BMI) 36.8 Intake & Output: Intake and Output for Last 24 Hours 06/04/24 06/05/24 06/06/24 23:59 23:59 23:59 Intake Total 2320 / 2760 781.5 / 781.5 284.24 / 284.24 Output Total 640 / 665 1582 / 1582 1600 / 1600 Balance 1680 / 2095 -800.5 / -800.5 -1315.76 / -1315.76 Lab / Micro Data Attestation: I reviewed the patient's lab results. 06/06/24 08:15 06/06/24 08:15 Labs: Laboratory Results - last 24 hr 06/05/24 05:07: Sodium 136, Potassium 5.3 H, Chloride 105, Carbon Dioxide 18.0 L, Anion Gap 13, BUN 74 H, Creatinine 1.93 H, Estim Creat Clear Calc 33.88, Est GFR (MDRD) Af Amer 43 L, Est GFR (MDRD) Non-Af 35 L, BUN/Creatinine Ratio 38.3 H, Glucose 310 H, Hemoglobin A1c 11.0 H, Calcium 8.4 L, TSH 0.836 06/05/24 07:58: POC Glucose 279 H 06/05/24 10:29: POC Glucose 278 H 06/05/24 16:28: POC Glucose 200 H 06/05/24 17:40: PT 14.0, INR 1.1, APTT 23.2 L, Troponin I High Sens 3206 H*, B-Natriuretic Peptide 171.1 H 06/05/24 21:37: POC Glucose 178 H 06/05/24 23:54: APTT > 250.0 H* 06/06/24 06:30: POC Glucose 201 H ABG Data ABG results: ABG 06/05/24 06/05/24 11:41 16:35 Specimen Type ART ART Sample Site R Radial R Radial pH 7.34 L 7.38 Bicarbonate Actual 17.9 L 20.6 L Total CO2 19 22 Base Excess -8 L -5 L O2 Saturation 89 L 88 L O2 % 100.0 100.0 ABG pCO2 33.5 L 34.5 L ABG pO2 60 L 55 L Dustin Test Positive Positive O2 Delivery Device NRB BiPAP Vent Mode Not entered Not entered POC PEEP 10 Radiography Diagnostic Testing: Radiology Impression Cervical Spine X-Ray 06/05/24 08:35 IMPRESSION: Degenerative and postoperative changes in the cervical spine without acute fracture or postoperative complication. Prevertebral soft tissues soft tissue swelling likely postsurgical Electronically Signed: Jamil Alvarado MD at 12:41 EST , Brain CT 06/05/24 11:41 IMPRESSION: Chronic involutional changes of the brain, no acute hemorrhage. Electronically Signed: Jamil Alvarado MD at 12:35 EST , Chest CTA 06/05/24 12:40 IMPRESSION: Bilateral upper lobe segmental and subsegmental pulmonary artery emboli with left lower lobe and right middle lobe pulmonary emboli also present. There is enlargement of the right ventricle indicating right heart strain. There is no large main stem emboli present. Electronically Signed: Sloan Demarco MD at 16:58 EST , ADDENDUM: 06/05/24 1715 IMPRESSION: Bilateral upper lobe segmental and subsegmental pulmonary artery emboli with left lower lobe and right middle lobe pulmonary emboli also present. There is enlargement of the right ventricle indicating right heart strain. There is no large main stem emboli present. N.B. : The above Results were Read Back by Sloan Demarco MD to Mattie Hanna RN, and understanding confirmed on 06/05/2024 17:08:22 (ET). Electronically Signed: Sloan Demarco MD at 16:58 EST , ADDENDUM: 06/05/24 1720 IMPRESSION: Bilateral upper lobe segmental and subsegmental pulmonary artery emboli with left lower lobe and right middle lobe pulmonary emboli also present. There is enlargement of the right ventricle indicating right heart strain. There is no large main stem emboli present. N.B. : The above Results were Read Back by Sloan Demarco MD to Mattie Hanna RN, and understanding confirmed on 06/05/2024 17:14:06 (ET). Electronically Signed: Sloan Demarco MD at 16:58 EST , Chest X-Ray 06/05/24 13:10 IMPRESSION: No interval change Electronically Signed: Jamil Alvarado MD at 13:46 EST , Physical Exam Const alert and no apparent distress Constitutional Narrative: Intermittently confused and disoriented. General Appearance: ill appearing HEENT normocephalic and head/scalp atraumatic Eyes EOMs intact bilaterally and conjunctivae normal Neck Neck Narrative: Rigid cervical collar in place. Chest inspection of chest normal Resp normal respiratory effort Auscultation: diminished lung sounds Cardio regular rate and regular rhythm GI normal to inspection, nondistended, normoactive bowel sounds Extremity no clubbing, cyanosis or edema Skin General Skin Exam: venous stasis and dermatitis Neuro CN's II-XII intact bilaterally and no focal motor deficits Psych Activity / Motor Behavior: restless Mood & Affect: flat affect Charges/Coding Visit Charges Inpatient E&M: 01723 Subs Hosp L3
[2024-06-06] MEDS: dexAMETHasone 4 MG/ML Vial IV (08:12)
[2024-06-06] MEDS: Ensure Surgery 237 ML LIQUID PO ×3 (08:29→17:17)
[2024-06-06 08:42] LABS: Absolute Neutrophil Count 17.9 X10^3/uL (2.0-7.7); Basophil# 0.07 X10^3/uL; Basophil% 0.3 % (0-1); Hematocrit 42.8 % (40-54); Hemoglobin 14.2 g/dL (13.0-16.5); Lymphocyte % 6.2 % (19-41); Mean Corp Hgb Conc 33.2 g/dL (32-36); Mean Corpuscular Hgb 27.5 pg (27.0-32.0); Mean Corpuscular Volume 82.8 fL (80-94); Mean Platelet Vol. 10.9 fl (6.2-12.0); Monocyte% 12.5 % (0-10); NRBC Flagged by Analyzer 0 % (0-5); Neutrophil # 17.85 X10^3/uL (2.7-7.7); Neutrophil % 79.5 % (47-70); POSITIVE DIFFERENTIAL YES; Platelet Count 163 K/mm3 (150-450); RBC Distribution Width CV 13.4 % (11.6-14.6); RBC Distribution Width SD 40.3 fl (35.1-43.9); Red Blood Count 5.17 M/mm3 (4.6-6.2); White Blood Count 22.5 K/mm3 (4.4-11.0)
[2024-06-06 08:47] LABS: Differential Indicated SCAN CRITERIA MET
[2024-06-06 08:48] LABS: Anion Gap 7 (5-15); BUN 77 mg/dL (7-18); BUN/Creat Ratio 38.5 RATIO (10-20); Calcium,Total 8.7 mg/dL (8.5-10.1); Chloride 107 mmol/L (98-107); EST Glomerular Filtration Rate 34 mL/min (>60); Est Glom Filt Rate - Afr Amer 41 mL/min (>60); Estimated Creatinine Clearance 32.02 ml/min; Glucose 199 mg/dL (74-106); Potassium 4.2 mmol/L (3.5-5.1); Sodium Level 139 mmol/L (136-145)
[2024-06-06 09:02] LABS: Partial Thromboplast Time 110.9 Seconds (24.1-36.2)
--- NOTE | 2024-06-06 09:12 | PN.SURG_ITS ---
Subjective Subjective Diagnosed with a pulmonary emboli yesterday on CT scan (acute mental status changes and hypoxic, transferred to the ICU and placed on heparin drip). A&0 x 3 this morning. Feeling better this morning (on high flow NC rather than BiPap and reports that this is more comfortable since I checked on him last night). Pain in neck controlled. Nursing reports minimal drain output. Objective Data Objective Data Vital Signs: Vital Signs Temp Pulse Resp BP Pulse Ox O2 Del Method O2 Flow Rate 98.1 F 66 20 H 133/77 H 94 Airvo 60 06/06/24 07:00 06/06/24 08:00 06/06/24 07:16 06/06/24 07:00 06/06/24 07:16 06/06/24 08:00 06/06/24 08:00 FiO2 64 06/06/24 08:00 Oxygen Flow Rate (L/min) 60 Oxygen Delivery Method Airvo Weight: 235 lb 3.732 oz Body Mass Index (BMI) 36.8 Intake & Output: Intake and Output for Last 24 Hours 06/04/24 06/05/24 06/06/24 23:59 23:59 23:59 Intake Total 2320 / 2760 781.5 / 781.5 644.24 / 644.24 Output Total 640 / 665 1582 / 1582 1600 / 1600 Balance 1680 / 2095 -800.5 / -800.5 -955.76 / -955.76 Lab / Micro Data 06/06/24 08:15 06/06/24 08:15 Labs: Laboratory Results - last 24 hr 06/05/24 05:07: Hemoglobin A1c 11.0 H, TSH 0.836 06/05/24 10:29: POC Glucose 278 H 06/05/24 16:28: POC Glucose 200 H 06/05/24 17:40: PT 14.0, INR 1.1, APTT 23.2 L, Troponin I High Sens 3206 H*, B- Natriuretic Peptide 171.1 H 06/05/24 21:37: POC Glucose 178 H 06/05/24 23:54: APTT > 250.0 H* 06/06/24 06:30: POC Glucose 201 H 06/06/24 08:15: WBC 22.5 H, RBC 5.17, Hgb 14.2, Hct 42.8, MCV 82.8, MCH 27.5, M CHC 33.2 D, RDW Std Deviation 40.3, RDW Coeff of Tyesha 13.4, Plt Count 163, MPV 10.9, Immature Gran % (Auto) 1.500 H, Neut % (Auto) 79.5 H, Lymph % (Auto) 6.2 L , [place] % (Auto) 12.5 H, Eos % (Auto) 0.0, Baso % (Auto) 0.3, Absolute Neuts (auto) 17.9 H, Absolute Lymphs (auto) 1.40, Nucleated RBC % 0, APTT 110.9 H*, Sodium 139, Potassium 4.2, Chloride 107, Carbon Dioxide 25.0, Anion Gap 7, BUN 77 H, Creatinine 2.00 H, Estim Creat Clear Calc 32.02, Est GFR (MDRD) Af Amer 41 L, Est GFR (MDRD) Non-Af 34 L, BUN/Creatinine Ratio 38.5 H, Glucose 199 H, Calcium 8.7 ABG Data ABG results: ABG 06/05/24 06/05/24 11:41 16:35 Specimen Type ART ART Sample Site R Radial R Radial pH 7.34 L 7.38 Bicarbonate Actual 17.9 L 20.6 L Total CO2 19 22 Base Excess -8 L -5 L O2 Saturation 89 L 88 L O2 % 100.0 100.0 ABG pCO2 33.5 L 34.5 L ABG pO2 60 L 55 L Dustin Test Positive Positive O2 Delivery Device NRB BiPAP Vent Mode Not entered Not entered POC PEEP 10 Radiography Diagnostic Testing: Radiology Impression Cervical Spine X-Ray 06/05/24 08:35 IMPRESSION: Degenerative and postoperative changes in the cervical spine without acute fracture or postoperative complication. Prevertebral soft tissues soft tissue swelling likely postsurgical Electronically Signed: Jamil Alvarado MD at 12:41 EST , Brain CT 06/05/24 11:41 IMPRESSION: Chronic involutional changes of the brain, no acute hemorrhage. Electronically Signed: Jamil Alvarado MD at 12:35 EST , Chest CTA 06/05/24 12:40 IMPRESSION: Bilateral upper lobe segmental and subsegmental pulmonary artery emboli with left lower lobe and right middle lobe pulmonary emboli also present. There is enlargement of the right ventricle indicating right heart strain. There is no large main stem emboli present. Electronically Signed: Sloan Demarco MD at 16:58 EST , ADDENDUM: 06/05/24 1715 IMPRESSION: Bilateral upper lobe segmental and subsegmental pulmonary artery emboli with left lower lobe and right middle lobe pulmonary emboli also present. There is enlargement of the right ventricle indicating right heart strain. There is no large main stem emboli present. N.B. : The above Results were Read Back by Sloan Demarco MD to Mattie Hanna RN, and understanding confirmed on 06/05/2024 17:08:22 (ET). Electronically Signed: Sloan Demarco MD at 16:58 EST , ADDENDUM: 06/05/24 1720 IMPRESSION: Bilateral upper lobe segmental and subsegmental pulmonary artery emboli with left lower lobe and right middle lobe pulmonary emboli also present. There is enlargement of the right ventricle indicating right heart strain. There is no large main stem emboli present. N.B. : The above Results were Read Back by Sloan Demarco MD to Mattie Hanna RN, and understanding confirmed on 06/05/2024 17:14:06 (ET). Electronically Signed: Sloan Demarco MD at 16:58 EST , Chest X-Ray 06/05/24 13:10 IMPRESSION: No interval change Electronically Signed: Jamil Alvarado MD at 13:46 EST Reading Location ID and State: [facility] / [place] , Service support , Physical Exam Narrative Head and neck: Drains SS, Strip well, no clot. VAC holding suction over incision. Expected swelling on neck. Shrugs shoulders. Const alert and oriented x3 Eyes EOMs intact bilaterally Neck Neck Narrative: C collar in place No pressure over the incision. 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 Sensation to light touch intact on the upper extremities throughout. Assessment & Plan Assessment/Plan (1) Cervical myelopathy: PLAN: S/p muscle flap closure for cervical spine POST-OPERATIVE PLAN * Plan to keep incisional wound VAC until tomorrow, 07 June 2024, at which time we will look at the incision and then replaced the incisional wound VAC (anticipate 3 weeks of incisional wound VAC). * Need to check wound and drain sooner since started on Heparin ggt. * Continue drain care with every 4 hour emptying and stripping of the drains. * Drains to stay in until consistently less than 30 cc in 24 hour period. * Head of bed greater than 45 degrees to pressure offload the incision. * Plan for arms at sides and no extreme shoulder abduction/extreme flexion of arms. * Plastics will follow. Charges/Coding Procedures Integumentary [id number]: [id number] Global Visit
[2024-06-06 11:59] LABS: Bedside Glucose 125 mg/dL (74-106)
--- NOTE | 2024-06-06 12:29 | PN.ORTHO_ITS ---
Documented by User: JATIN Colmenares 06/06/24 12:33 Subjective Subjective Patient transferred from med surg to ICU yesterday following increased need for oxygen. Diagnosed with a pulmonary emboli yesterday on CT scan with acute mental status changes and hypoxia, placed on heparin drip and will be managed per hospitalist. Objective Data Objective Data Vital Signs: Vital Signs Temp Pulse Resp BP Pulse Ox O2 Del Method O2 Flow Rate 98.4 F 61 16 110/61 97 Airvo 60 06/06/24 10:00 06/06/24 10:00 06/06/24 10:00 06/06/24 10:00 06/06/24 10:00 06/06/24 10:00 06/06/24 08:00 FiO2 64 06/06/24 08:00 Oxygen Flow Rate (L/min) 60 Oxygen Delivery Method Airvo Weight: 235 lb 3.732 oz Body Mass Index (BMI) 36.8 Intake & Output: Intake and Output for Last 24 Hours 06/04/24 06/05/24 06/06/24 23:59 23:59 23:59 Intake Total 2320 / 2760 781.5 / 781.5 716.04 / 716.04 Output Total 640 / 665 1582 / 1582 1900 / 1900 Balance 1680 / 2095 -800.5 / -800.5 -1183.96 / -1183.96 Lab / Micro Data 06/06/24 08:15 06/06/24 08:15 Labs: Laboratory Results - last 24 hr 06/05/24 05:07: TSH 0.836 06/05/24 16:28: POC Glucose 200 H 06/05/24 17:40: PT 14.0, INR 1.1, APTT 23.2 L, Troponin I High Sens 3206 H*, B- Natriuretic Peptide 171.1 H 06/05/24 21:37: POC Glucose 178 H 06/05/24 23:54: APTT > 250.0 H* 06/06/24 06:30: POC Glucose 201 H 06/06/24 08:15: WBC 22.5 H, RBC 5.17, Hgb 14.2, Hct 42.8, MCV 82.8, MCH 27.5, M CHC 33.2 D, RDW Std Deviation 40.3, RDW Coeff of Tyesha 13.4, Plt Count 163, MPV 10.9, Immature Gran % (Auto) 1.500 H, Neut % (Auto) 79.5 H, Lymph % (Auto) 6.2 L , [place] % (Auto) 12.5 H, Eos % (Auto) 0.0, Baso % (Auto) 0.3, Absolute Neuts (auto) 17.9 H, Absolute Lymphs (auto) 1.40, Nucleated RBC % 0, Diff Path Review October, APTT 110.9 H*, Sodium 139, Potassium 4.2, Chloride 107, Carbon Dioxide 25.0, Anion Gap 7, BUN 77 H, Creatinine 2.00 H, Estim Creat Clear Calc 32.02, E st GFR (MDRD) Af Amer 41 L, Est GFR (MDRD) Non-Af 34 L, BUN/Creatinine Ratio 38.5 H, Glucose 199 H, Calcium 8.7 06/06/24 11:37: POC Glucose 125 H ABG Data ABG results: ABG 06/05/24 16:35 Specimen Type ART Sample Site R Radial pH 7.38 Bicarbonate Actual 20.6 L Total CO2 22 Base Excess -5 L O2 Saturation 88 L O2 % 100.0 ABG pCO2 34.5 L ABG pO2 55 L Dustin Test Positive O2 Delivery Device BiPAP Vent Mode Not entered POC PEEP 10 Radiography Diagnostic Testing: Radiology Impression Cervical Spine X-Ray 06/05/24 08:35 IMPRESSION: Degenerative and postoperative changes in the cervical spine without acute fracture or postoperative complication. Prevertebral soft tissues soft tissue swelling likely postsurgical Electronically Signed: Jamil Alvarado MD at 12:41 EST , Brain CT 06/05/24 11:41 IMPRESSION: Chronic involutional changes of the brain, no acute hemorrhage. Electronically Signed: Jamil Alvarado MD at 12:35 EST , Chest CTA 06/05/24 12:40 IMPRESSION: Bilateral upper lobe segmental and subsegmental pulmonary artery emboli with left lower lobe and right middle lobe pulmonary emboli also present. There is enlargement of the right ventricle indicating right heart strain. There is no large main stem emboli present. Electronically Signed: Sloan Demarco MD at 16:58 EST , ADDENDUM: 06/05/24 1715 IMPRESSION: Bilateral upper lobe segmental and subsegmental pulmonary artery emboli with left lower lobe and right middle lobe pulmonary emboli also present. There is enlargement of the right ventricle indicating right heart strain. There is no large main stem emboli present. N.B. : The above Results were Read Back by Sloan Demarco MD to Mattie Hanna RN, and understanding confirmed on 06/05/2024 17:08:22 (ET). Electronically Signed: Sloan Demarco MD at 16:58 EST , ADDENDUM: 06/05/24 1720 IMPRESSION: Bilateral upper lobe segmental and subsegmental pulmonary artery emboli with left lower lobe and right middle lobe pulmonary emboli also present. There is enlargement of the right ventricle indicating right heart strain. There is no large main stem emboli present. N.B. : The above Results were Read Back by Sloan Demarco MD to Mattie Hanna RN, and understanding confirmed on 06/05/2024 17:14:06 (ET). Electronically Signed: Sloan Demarco MD at 16:58 EST , Chest X-Ray 06/05/24 13:10 IMPRESSION: No interval change Electronically Signed: Jamil Alvarado MD at 13:46 EST , Physical Exam Narrative Neurological exam of the upper extremities showed 4 right finger oracle reports developer and triceps, and 4+ wrist extension, left shoulder abduction limited due to prior rotator cuff issues. Normal sensation across all dermatomes. Const alert and oriented x3 Assessment & Plan Assessment/Plan (1) Status post cervical spinal fusion: Documented by User: Dr. Henry Hernandez MD 06/06/24 15:51 Subjective Subjective Patient transferred from med surg to ICU yesterday following increased need for oxygen. Diagnosed with a pulmonary emboli yesterday on CT scan with acute mental status changes and hypoxia, placed on heparin drip and will be managed per hospitalist. I saw the patient in the ICU bed 10 today at 7:30 in the morning and also later today at 3:30 PM. Continues to improve with oxygenation after starting heparin therapy after being diagnosed with pulm embolism last night. He is able to respond better today to commands. Denies significant pain. He is able to open eyes and see, and denies dizziness or blurring although difficult to assess. Objective Data Lab / Micro Data 06/06/24 08:15 06/06/24 08:15 Assessment & Plan Assessment/Plan (1) Status post cervical spinal fusion: PLAN: Plan Tightened the collar for better support. Discussed with hospitalist Dr. Sullivan. Plan is to transfer him to PCU once bed is available as he is doing better with oxygenation. He will continue to be on therapeutic heparin for the pulmonary embolism. No additional drain emptying this shift. Difficult to assess if patient is dry versus clotted drain. Appreciate Dr. Kimberley schmitzment of wound and drains. Will discontinue dexamethasone today as this is no longer needed for the spinal cord. May restart steroids if medically indicated for other reasons. Called and spoke with patient's son Demetris and updated him.
--- NOTE | 2024-06-06 15:07 | CHAPLAIN ---
Type of Pastoral Visit ___ Initial Visit ___ Follow-up Visit ___ On-call Visit ___ General Patient Visit ___ Spiritual Assessment ___ Family Conference ___ Bereavement ___ Rapid Response ___ Code Blue ___ Other (describe below) Pastoral Care Referral From ___ Patient ___ Family ___ Nurse ___ Physician ___ Wind Tunnel Mechanic ___ Lead Web Developer ___ Other (describe below) Sacrament/Intervention ___ Active listening ___ Anointing ___ Caodaism ___ Bereavement ___ Communion ___ Ann exploration ___ ___ Life review ___ Prayer ___ Reconciliation ___ Sacrament of Sick ___ Supportive presence ___ Wedding ___ Other (describe below) Pastoral Comments patient is sleeping and RN requested that patient be allowed to rest quietly
[2024-06-06 16:58] LABS: Bedside Glucose 245 mg/dL (74-106)
--- NOTE | 2024-06-06 16:58 | PN.HOSP_ITS ---
Reason for Visit Reason for Visit: Diagnoses Hypothyroidism, unspecified (06/04/24) Type 2 diabetes mellitus with hyperglycemia (06/04/24) Obesity, unspecified (06/04/24) Hyperlipidemia, unspecified (06/04/24) Other specified diseases of spinal cord (06/04/24) Disease of spinal cord, unspecified (06/04/24) Essential (primary) hypertension (06/04/24) Cerebral infarction, unspecified (06/04/24) Acute respiratory failure with hypoxia (06/04/24) Unspecified osteoarthritis, unspecified site (06/04/24) Arthrodesis status (06/04/24) Subjective Subjective Patient was seen and examined today, he remains on Airvo. CT of the chest yesterday revealed bilateral pulmonary emboli, patient remains on IV heparin. Patient is overall medical status appears to be stable and it was felt he could be moved to PCU for further care. Objective Data Objective Data Vital Signs: Vital Signs Temp Pulse Resp BP Pulse Ox O2 Del Method O2 Flow Rate 97.9 F 70 15 138/72 H 95 Airvo 45 06/06/24 16:00 06/06/24 16:00 06/06/24 16:00 06/06/24 16:00 06/06/24 16:00 06/06/24 16:00 06/06/24 15:00 FiO2 30 06/06/24 15:34 Oxygen Flow Rate (L/min) 45 Oxygen Delivery Method Airvo Weight: 106.7 kg Body Mass Index (BMI) 36.8 Intake & Output: Intake and Output for Last 24 Hours 06/04/24 06/05/24 06/06/24 23:59 23:59 23:59 Intake Total 2320 / 2760 781.5 / 781.5 766.04 / 766.04 Output Total 640 / 665 1582 / 1582 1900 / 1900 Balance 1680 / 2095 -800.5 / -800.5 -1133.96 / -1133.96 Lab / Micro Data 06/06/24 08:15 06/06/24 08:15 Labs: Laboratory Results - last 24 hr 06/05/24 17:40: PT 14.0, INR 1.1, APTT 23.2 L, Troponin I High Sens 3206 H*, B- Natriuretic Peptide 171.1 H 06/05/24 21:37: POC Glucose 178 H 06/05/24 23:54: APTT > 250.0 H* 06/06/24 06:30: POC Glucose 201 H 06/06/24 08:15: WBC 22.5 H, RBC 5.17, Hgb 14.2, Hct 42.8, MCV 82.8, MCH 27.5, M CHC 33.2 D, RDW Std Deviation 40.3, RDW Coeff of Tyesha 13.4, Plt Count 163, MPV 10.9, Immature Gran % (Auto) 1.500 H, Neut % (Auto) 79.5 H, Lymph % (Auto) 6.2 L , [place] % (Auto) 12.5 H, Eos % (Auto) 0.0, Baso % (Auto) 0.3, Absolute Neuts (auto) 17.9 H, Absolute Lymphs (auto) 1.40, Nucleated RBC % 0, Diff Path Review October, APTT 110.9 H*, Sodium 139, Potassium 4.2, Chloride 107, Carbon Dioxide 25.0, Anion Gap 7, BUN 77 H, Creatinine 2.00 H, Estim Creat Clear Calc 32.02, E st GFR (MDRD) Af Amer 41 L, Est GFR (MDRD) Non-Af 34 L, BUN/Creatinine Ratio 38.5 H, Glucose 199 H, Calcium 8.7 06/06/24 11:37: POC Glucose 125 H Radiography Diagnostic Testing: Radiology Impression Chest CTA 06/05/24 12:40 IMPRESSION: Bilateral upper lobe segmental and subsegmental pulmonary artery emboli with left lower lobe and right middle lobe pulmonary emboli also present. There is enlargement of the right ventricle indicating right heart strain. There is no large main stem emboli present. Electronically Signed: Sloan Demarco MD at 16:58 EST , ADDENDUM: 06/05/24 [id number] IMPRESSION: Bilateral upper lobe segmental and subsegmental pulmonary artery emboli with left lower lobe and right middle lobe pulmonary emboli also present. There is enlargement of the right ventricle indicating right heart strain. There is no large main stem emboli present. N.B. : The above Results were Read Back by Sloan Demarco MD to Mattie Hanna RN, and understanding confirmed on 06/05/2024 17:08:22 (ET). Electronically Signed: Sloan Demarco MD at 16:58 EST , ADDENDUM: 06/05/24 1720 IMPRESSION: Bilateral upper lobe segmental and subsegmental pulmonary artery emboli with left lower lobe and right middle lobe pulmonary emboli also present. There is enlargement of the right ventricle indicating right heart strain. There is no large main stem emboli present. N.B. : The above Results were Read Back by Sloan Demarco MD to Mattie Hanna RN, and understanding confirmed on 06/05/2024 17:14:06 (ET). Electronically Signed: Sloan Demarco MD at 16:58 EST , Echocardiogram 06/06/24 05:19 Interpretation Summary The estimated ejection fraction is 60 %. Unable to assess diastolic dysfunction. Severely dilated right ventricle. Moderately decreased right ventricular systolic function Ordering Physician: Antony Olvera Referring Physician: Henry Hernandez Performed By: Shahbaz Browne RCS Physical Exam Const Constitutional Narrative: Patient is lethargic and confused General Appearance: well kempt and well developed Orientation / Consciousness: confused HEENT normocephalic, head/scalp atraumatic and moist oral mucous membranes HEENT Narrative: Patient has a rigid neck brace in place Head and Scalp: normocephalic Eyes PERRL, EOMs intact bilaterally and conjunctivae normal Neck supple, no JVD, thyroid normal and no carotid bruits General: trachea midline Resp normal respiratory effort, no retractions, no use of accessory muscles and clear to auscultation bilaterally Auscultation: Negative for rales, rhonchi or wheezes Cardio regular rate, regular rhythm, S1 normal heart sound, S2 normal heart sound, no murmurs, no rub and no gallops GI normal to inspection, nondistended, normoactive bowel sounds, soft to palpation, non-tender and non-distended Extremity no clubbing, cyanosis or edema Skin no rashes or lesions noted General Skin Exam: no breakdown Neuro CN's II-XII intact bilaterally Neuro Narrative: Patient is lethargic and confused Psych Psych Narrative: Patient is confused Assessment & Plan Assessment/Plan (1) Acute hypoxemic respiratory failure: PLAN: Plan 1. Acute hypoxic respiratory failure secondary to bilateral pulmonary emboli- critical care is participating in his care, patient remains on heparin drip #2 encephalopathy-etiology unclear, supportive care at this point is being administered #3 acute kidney injury-continue IV fluid administration. #4 type 2 diabetes-patient's blood sugars will be monitored, sliding scale insulin will be administered as needed #5 hypothyroidism-patient is on Synthroid #6 essential hypertension-patient remains on his present blood pressure medications Total clinical time spent by myself addressing patient's medical issues, reviewing all his data, and collaborating with patient's care team: 35 minutes Charges/Coding Visit Charges Inpatient E&M: 76160 Subs Hosp L2
[2024-06-06 17:45] LABS: Partial Thromboplast Time 59.4 Seconds (24.1-36.2)
[2024-06-06] MEDS: HEPARIN/D5w 25,000 UNITS 25,000 UNITS/250 ML IV.SOLN. 9 UNITS CONT INF (18:58)
[2024-06-06] MEDS: oxyCODONE 5 MG Tablet PO (19:59)
--- NOTE | 2024-06-06 21:27 | NURSING ---
This nurse attempted multiple times to get patient to take his HS PO medications, this nurse would put 1 pill in patients mouth and patient would suck on the straw for a drink but would not swallow pill, pt kept spitting pill out. Patient was educated on importance of taking HS pills but patient is only alert and oriented to self so he is unable to follow commands, at this time. vital signs stable, eufemia drain tubes stripped per doctor order
[2024-06-06] MEDS: Insulin Glargine-YFGN 100 UNIT/ML Pen 27 UNIT SC (21:59)
[2024-06-06 23:26] LABS: Partial Thromboplast Time 54.6 Seconds (24.1-36.2)
[2024-06-07] VITALS (7 sets, daily range): BP systolic 107–130; BP diastolic 54–70; PULSE 64–74; RESP 16–18; TEMP 36.2–37.1; O2SAT 94–97; BMI 36.8
--- NOTE | 2024-06-07 00:20 | NURSING ---
pt grabbed his IV tubing, and would not let go, pt pulled right hand IV out. sitter at bedside and tried to get patient to let go but patient was not redirectable. patient cleaned up.
[2024-06-07 00:51] LABS: Bedside Glucose 222 mg/dL (74-106)
--- NOTE | 2024-06-07 03:00 | NURSING ---
This RN taking over care at this time. Received report from Shameka ROSE form the ICU.
[2024-06-07] MEDS: Clindamycin 900 MG/50 ML BAG 75 MG IV (06:35)
[2024-06-07] MEDS: Acetaminophen 500 MG Tablet 1000 MG PO ×2 (06:35→14:53)
[2024-06-07] MEDS: Levothyroxine 75 MCG Tablet PO (06:36)
[2024-06-07 07:11] LABS: Bedside Glucose 217 mg/dL (74-106)
[2024-06-07 07:25] LABS: Absolute Lymphocyte Count 1.95 X10^3/uL (0.83-4.51); Absolute Neutrophil Count 18.7 X10^3/uL (2.0-7.7); Basophil# 0.09 X10^3/uL; Basophil% 0.4 % (0-1); Eosinophil# 0.01 X10^3/uL; Hematocrit 45.9 % (40-54); Hemoglobin 14.9 g/dL (13.0-16.5); Lymphocyte # 1.95 X10^3/ul (0.83-4.51); Lymphocyte % 7.8 % (19-41); Mean Corp Hgb Conc 32.5 g/dL (32-36); Mean Corpuscular Hgb 27.9 pg (27.0-32.0); Mean Corpuscular Volume 85.8 fL (80-94); Mean Platelet Vol. 11.4 fl (6.2-12.0); Monocyte# 3.75 X10^3/uL; Monocyte% 15.1 % (0-10); NRBC Flagged by Analyzer 0 % (0-5); Neutrophil # 18.67 X10^3/uL (2.7-7.7); Neutrophil % 75.2 % (47-70); POSITIVE DIFFERENTIAL YES; Platelet Count 156 K/mm3 (150-450); RBC Distribution Width CV 13.8 % (11.6-14.6); RBC Distribution Width SD 43.2 fl (35.1-43.9); Red Blood Count 5.35 M/mm3 (4.6-6.2); White Blood Count 24.9 K/mm3 (4.4-11.0)
[2024-06-07 07:29] LABS: Differential Indicated SCAN CRITERIA MET
[2024-06-07 07:48] LABS: Anion Gap 5 (5-15); BUN 75 mg/dL (7-18); BUN/Creat Ratio 37.9 RATIO (10-20); Calcium,Total 8.9 mg/dL (8.5-10.1); Chloride 107 mmol/L (98-107); Creatinine, Serum 1.98 mg/dL (0.70-1.30); EST Glomerular Filtration Rate 34 mL/min (>60); Est Glom Filt Rate - Afr Amer 42 mL/min (>60); Estimated Creatinine Clearance 32.36 ml/min; Glucose 226 mg/dL (74-106); Potassium 3.8 mmol/L (3.5-5.1); Sodium Level 141 mmol/L (136-145)
[2024-06-07 07:57] LABS: Partial Thromboplast Time 42.3 Seconds (24.1-36.2)
[2024-06-07] MEDS: Heparin Injection (Vial) 5,000 UNIT/ML VIAL IV ×2 (08:15)
[2024-06-07 09:31] LABS: Bedside Glucose 222 mg/dL (74-106)
[2024-06-07] MEDS: oxyCODONE 5 MG Tablet PO ×2 (10:05→17:00)
[2024-06-07] MEDS: Empagliflozin 25 MG Tablet PO (10:07)
[2024-06-07] MEDS: Furosemide 40 MG Tablet PO (10:07)
[2024-06-07] MEDS: Senna/Docusate Sodium 1 Tablet 2 TABLET PO (10:07)
[2024-06-07] MEDS: Losartan Potassium 100 MG Tablet PO (10:08)
--- NOTE | 2024-06-07 10:52 | PN.ORTHO_ITS ---
Documented by User: JATIN Colmenares 06/07/24 10:56 Subjective Subjective Patient transferred from ICU to PCU. Upon arrival patient was disoriented and was not following commands. Oxygen levels have been stable. Minimal drainage wound VAC and Hemovac which will be managed by Dr. Chu. Objective Data Objective Data Vital Signs: Vital Signs Temp Pulse Resp BP Pulse Ox O2 Del Method O2 Flow Rate 97.8 F 64 16 118/62 97 Nasal Cannula 2 06/07/24 08:47 06/07/24 08:47 06/07/24 08:47 06/07/24 08:47 06/07/24 08:47 06/07/24 08:47 06/07/24 07:16 FiO2 30 06/06/24 15:34 Oxygen Flow Rate (L/min) 2 Oxygen Delivery Method Nasal Cannula Weight: 235 lb 7.259 oz Body Mass Index (BMI) 36.8 Intake & Output: Intake and Output for Last 24 Hours 06/05/24 06/06/24 06/07/24 23:59 23:59 23:59 Intake Total 781.5 / 781.5 888.04 / 888.04 45.45 / 45.45 Output Total 1582 / 1582 2530 / 3030 740 / 740 Balance -800.5 / -800.5 -1641.96 / -2141.96 -694.55 / -694.55 Lab / Micro Data 06/07/24 07:08 06/07/24 07:08 Labs: Laboratory Results - last 24 hr 06/06/24 11:37: POC Glucose 125 H 06/06/24 16:38: POC Glucose 245 H 06/06/24 17:05: APTT 59.4 H 06/06/24 21:47: POC Glucose 222 H 06/06/24 23:05: APTT 54.6 H 06/07/24 06:31: POC Glucose 217 H 06/07/24 07:08: WBC 24.9 H, RBC 5.35, Hgb 14.9, Hct 45.9, MCV 85.8, MCH 27.9, MCHC 32.5, RDW Std Deviation 43.2, RDW Coeff of Tyesha 13.8, Plt Count 156, MPV 11.4, Immature Gran % (Auto) 1.500 H, Neut % (Auto) 75.2 H, Lymph % (Auto) 7.8 L , [place] % (Auto) 15.1 H, Eos % (Auto) 0.0, Baso % (Auto) 0.4, Absolute Neuts (auto) 18.7 H, Absolute Lymphs (auto) 1.95, Nucleated RBC % 0, Differential Comment COMMENT, Diff Path Review October foll, APTT 42.3 H, Sodium 141, Potassium 3.8, Chloride 107, Carbon Dioxide 29.0, Anion Gap 5, BUN 75 H, Creatinine 1.98 H , Estim Creat Clear Calc 32.36, Est GFR (MDRD) Af Amer 42 L, Est GFR (MDRD) Non- Af 34 L, BUN/Creatinine Ratio 37.9 H, Glucose 226 H, Calcium 8.9 06/07/24 09:13: POC Glucose 222 H Radiography Diagnostic Testing: Radiology Impression Cervical Spine X-Ray 06/04/24 16:49 IMPRESSION: No intraoperative complications noted during posterior decompression/fusion of C3-T1. Electronically Signed: Jamil Alvarado MD at 18:45 EST , Echocardiogram 06/06/24 05:19 Interpretation Summary The estimated ejection fraction is 60 %. Unable to assess diastolic dysfunction. Severely dilated right ventricle. Moderately decreased right ventricular systolic function Ordering Physician: Antony Olvera Referring Physician: Henry Hernandez Performed By: Shahbaz Browne RCS Physical Exam Narrative Neuro exam unable to be completed as patient was not responding to commands. Assessment & Plan Assessment/Plan (1) Status post cervical spinal fusion: Documented by User: Dr. Henry Hernandez MD 06/07/24 11:51 Subjective Subjective Patient transferred from ICU to PCU. Patient was getting wound care evaluation when I saw him. He was turned to the side. Oxygen levels have been stable. Minimal drainage wound VAC and Hemovac which will be managed by Dr. Chu. Objective Data Lab / Micro Data 06/07/24 07:08 06/07/24 07:08 Physical Exam Narrative Neuro exam unable to be completed as patient was not responding to commands as he was turned to the side. Assessment & Plan Assessment/Plan (1) Status post cervical spinal fusion: PLAN: Plan 83-year-old gentleman who is postop day 3 status post C3-T1 posterior decompression fusion with postoperative PE. Oxygen is better after heparin therapy has been started. Drainage output has been low. Will defer to Dr. Chu for drain management. Will discuss about continued antibiotics as well. Continue PT OT mobilization attempts. Will continue to follow.
--- NOTE | 2024-06-07 11:15 | PN.SURG_ITS ---
Subjective Subjective Doing well. Transferred from ICU and is on NC (2 liters only). Alert and oriented on rounds today, reports of waxing and waning mental status by staff, but much improved since yesterday. Seems to be doing O.K. Objective Data Objective Data Vital Signs: Vital Signs Temp Pulse Resp BP Pulse Ox O2 Del Method O2 Flow Rate 97.8 F 64 16 118/62 97 Nasal Cannula 2 06/07/24 08:47 06/07/24 08:47 06/07/24 08:47 06/07/24 08:47 06/07/24 08:47 06/07/24 08:47 06/07/24 07:16 FiO2 30 06/06/24 15:34 Oxygen Flow Rate (L/min) 2 Oxygen Delivery Method Nasal Cannula Weight: 235 lb 7.259 oz Body Mass Index (BMI) 36.8 Intake & Output: Intake and Output for Last 24 Hours 06/05/24 06/06/24 06/07/24 23:59 23:59 23:59 Intake Total 781.5 / 781.5 888.04 / 888.04 45.45 / 45.45 Output Total 1582 / 1582 2530 / 3030 740 / 740 Balance -800.5 / -800.5 -1641.96 / -2141.96 -694.55 / -694.55 Lab / Micro Data 06/07/24 07:08 06/07/24 07:08 Labs: Laboratory Results - last 24 hr 06/06/24 11:37: POC Glucose 125 H 06/06/24 16:38: POC Glucose 245 H 06/06/24 17:05: APTT 59.4 H 06/06/24 21:47: POC Glucose 222 H 06/06/24 23:05: APTT 54.6 H 06/07/24 06:31: POC Glucose 217 H 06/07/24 07:08: WBC 24.9 H, RBC 5.35, Hgb 14.9, Hct 45.9, MCV 85.8, MCH 27.9, MCHC 32.5, RDW Std Deviation 43.2, RDW Coeff of Tyesha 13.8, Plt Count 156, MPV 11.4, Immature Gran % (Auto) 1.500 H, Neut % (Auto) 75.2 H, Lymph % (Auto) 7.8 L , [place] % (Auto) 15.1 H, Eos % (Auto) 0.0, Baso % (Auto) 0.4, Absolute Neuts (auto) 18.7 H, Absolute Lymphs (auto) 1.95, Nucleated RBC % 0, Differential Comment COMMENT, Diff Path Review October, APTT 42.3 H, Sodium 141, Potassium 3.8, Chloride 107, Carbon Dioxide 29.0, Anion Gap 5, BUN 75 H, Creatinine 1.98 H , Estim Creat Clear Calc 32.36, Est GFR (MDRD) Af Amer 42 L, Est GFR (MDRD) Non- Af 34 L, BUN/Creatinine Ratio 37.9 H, Glucose 226 H, Calcium 8.9 06/07/24 09:13: POC Glucose 222 H Radiography Diagnostic Testing: Radiology Impression Cervical Spine X-Ray 06/04/24 16:49 IMPRESSION: No intraoperative complications noted during posterior decompression/fusion of C3-T1. Electronically Signed: Jamil Alvarado MD at 18:45 EST , Echocardiogram 06/06/24 05:19 Interpretation Summary The estimated ejection fraction is 60 %. Unable to assess diastolic dysfunction. Severely dilated right ventricle. Moderately decreased right ventricular systolic function Ordering Physician: Antony Olvera Referring Physician: Henry Hernandez Performed By: Shahbaz Browne RCS Physical Exam Narrative Head and neck: Drains SS, Strip well, no clot. VAC holding suction over incision. VAC removed and changed to check for bleeding. Expected swelling on neck. Shrugs shoulders. Const alert and oriented x3 Eyes EOMs intact bilaterally Neck Neck Narrative: C collar in place No pressure over the incision. Patient sitting up Resp no retractions Resp Narrative: High flow NC in place, saturations in the mid 90s Cardio regular rate Extremity Extremity Narrative: SCDs on and activated 5+ warp hanger strength bilaterally on my exam today. Sensation to light touch intact on the upper extremities throughout. Assessment & Plan Assessment/Plan (1) Cervical myelopathy: PLAN: S/p muscle flap closure for cervical spine POST-OPERATIVE PLAN * Plan to keep incisional wound VAC until Monday, 14 June 2024, at which time we will look at the incision and then replaced the incisional wound VAC (anticipate 3 weeks of incisional wound VAC). * Continue drain care with every 4 hour emptying and stripping of the drains. * Drains to stay in until consistently less than 30 cc in 24 hour period. * Head of bed greater than 45 degrees to pressure offload the incision. * Plan for arms at sides and no extreme shoulder abduction/extreme flexion of arms. * Plastics will follow. Charges/Coding Procedures Integumentary [id number]: 18748 Global Visit
[2024-06-07 12:05] LABS: Bedside Glucose 262 mg/dL (74-106)
[2024-06-07 14:15] LABS: Pathologist Review Reviewed
[2024-06-07 14:20] LABS: Pathologist Review Reviewed
[2024-06-07 17:29] LABS: Bedside Glucose 228 mg/dL (74-106)
[2024-06-07 18:45] LABS: Partial Thromboplast Time 68.5 Seconds (24.1-36.2)
--- NOTE | 2024-06-07 18:55 | PN.HOSP_ITS ---
Reason for Visit Reason for Visit: Diagnoses Hypothyroidism, unspecified (06/04/24) Type 2 diabetes mellitus with hyperglycemia (06/04/24) Obesity, unspecified (06/04/24) Hyperlipidemia, unspecified (06/04/24) Other specified diseases of spinal cord (06/04/24) Disease of spinal cord, unspecified (06/04/24) Essential (primary) hypertension (06/04/24) Cerebral infarction, unspecified (06/04/24) Acute respiratory failure with hypoxia (06/04/24) Unspecified osteoarthritis, unspecified site (06/04/24) Arthrodesis status (06/04/24) Subjective Subjective Patient was seen and examined today, he is currently on 2 L of nasal cannula O2. Patient refuses to talk at times but when pressed will finally say a few words. Patient appears in no distress at this time. Objective Data Objective Data Vital Signs: Vital Signs Temp Pulse Resp BP Pulse Ox O2 Del Method O2 Flow Rate 97.9 F 67 16 107/54 L 97 Nasal Cannula 2 06/07/24 14:11 06/07/24 14:11 06/07/24 14:11 06/07/24 14:11 06/07/24 14:11 06/07/24 14:11 06/07/24 07:16 FiO2 30 06/06/24 15:34 Oxygen Flow Rate (L/min) 2 Oxygen Delivery Method Nasal Cannula Weight: 106.8 kg Body Mass Index (BMI) 36.8 Intake & Output: Intake and Output for Last 24 Hours 06/05/24 06/06/24 06/07/24 23:59 23:59 23:59 Intake Total 781.5 / 781.5 888.04 / 888.04 357.78 / 357.78 Output Total 1582 / 1582 2530 / 3030 1790 / 1790 Balance -800.5 / -800.5 -1641.96 / -2141.96 -1432.22 / -1432.22 Lab / Micro Data 06/08/24 06:25 06/08/24 06:25 Labs: Laboratory Results - last 24 hr 06/06/24 08:15: Diff Path Review Reviewed 06/06/24 21:47: POC Glucose 222 H 06/06/24 23:05: APTT 54.6 H 06/07/24 06:31: POC Glucose 217 H 06/07/24 07:08: WBC 24.9 H, RBC 5.35, Hgb 14.9, Hct 45.9, MCV 85.8, MCH 27.9, MCHC 32.5, RDW Std Deviation 43.2, RDW Coeff of Tyesha 13.8, Plt Count 156, MPV 11.4, Immature Gran % (Auto) 1.500 H, Neut % (Auto) 75.2 H, Lymph % (Auto) 7.8 L , [place] % (Auto) 15.1 H, Eos % (Auto) 0.0, Baso % (Auto) 0.4, Absolute Neuts (auto) 18.7 H, Absolute Lymphs (auto) 1.95, Nucleated RBC % 0, Differential Comment COMMENT, Diff Path Review Reviewed, APTT 42.3 H, Sodium 141, Potassium 3.8, Chloride 107, Carbon Dioxide 29.0, Anion Gap 5, BUN 75 H, Creatinine 1.98 H , Estim Creat Clear Calc 32.36, Est GFR (MDRD) Af Amer 42 L, Est GFR (MDRD) Non- Af 34 L, BUN/Creatinine Ratio 37.9 H, Glucose 226 H, Calcium 8.9 06/07/24 09:13: POC Glucose 222 H 06/07/24 11:47: POC Glucose 262 H 06/07/24 12:05: APTT 70.0 H 06/07/24 16:56: POC Glucose 228 H 06/07/24 18:15: APTT 68.5 H Physical Exam Const alert and no apparent distress Constitutional Narrative: Patient does not carry on a conversation with this examiner General Appearance: cooperative, well kempt and well developed Orientation / Consciousness: awake HEENT normocephalic, head/scalp atraumatic and moist oral mucous membranes Eyes PERRL, EOMs intact bilaterally and conjunctivae normal Neck supple, no JVD, thyroid normal and no carotid bruits General: trachea midline Resp normal respiratory effort, no retractions, no use of accessory muscles and clear to auscultation bilaterally Auscultation: Negative for rales, rhonchi or wheezes Cardio regular rate, regular rhythm, S1 normal heart sound, S2 normal heart sound, no murmurs, no rub and no gallops GI normal to inspection, nondistended, normoactive bowel sounds, soft to palpation, non-tender and non-distended Extremity no clubbing, cyanosis or edema Skin no rashes or lesions noted General Skin Exam: no breakdown Neuro CN's II-XII intact bilaterally, moves all extremities, no focal motor deficits and no sensory deficits noted Sensorium / Orientation: awake and alert Psych Psych Narrative: Patient does not carry on a conversation with examiner, he will say few words, he does not appear confused Assessment & Plan Assessment/Plan (1) Acute hypoxemic respiratory failure: PLAN: Plan 1. Acute hypoxic respiratory failure secondary to bilateral pulmonary emboli- critical care is participating in his care, patient remains on heparin drip, patient is on nasal cannula oxygen #2 encephalopathy-etiology unclear, supportive care at this point is being administered #3 acute kidney injury-continue IV fluid administration. #4 type 2 diabetes-patient's blood sugars will be monitored, sliding scale insulin will be administered as needed #5 hypothyroidism-patient is on Synthroid #6 essential hypertension-patient remains on his present blood pressure medications Total clinical time spent by myself addressing patient's medical issues, reviewing all his data, and collaborating with patient's care team: 35 minutes Charges/Coding Visit Charges Inpatient E&M: 94322 Subs Hosp L2
[2024-06-07] MEDS: HEPARIN/D5w 25,000 UNITS 25,000 UNITS/250 ML IV.SOLN. 11 UNITS CONT INF (20:06)
[2024-06-07] MEDS: Insulin Glargine-YFGN 100 UNIT/ML Pen 27 UNIT SC (21:30)
[2024-06-07] MEDS: Insulin Lispro 100 UNIT/ML INSULN.PEN SC (21:30)
[2024-06-07 22:22] LABS: Bedside Glucose 249 mg/dL (74-106)
[2024-06-08 00:36] LABS: Partial Thromboplast Time 65.3 Seconds (24.1-36.2)
[2024-06-08 03:30] VITALS: BP 106/67; PULSE 85; RESP 18; TEMP 36.7; O2SAT 95
[2024-06-08 03:50] VITALS: BMI 36.8
--- NOTE | 2024-06-08 06:13 | NURSING ---
Pt agreed to taking morning meds, and stated that he would like them in applesauce, not pudding. After this RN crushed the meds and placed them in the applesauce the pt would not open eyes or mouth, or act coherent enough to take any medications. Meds charted against at this time.
[2024-06-08 06:45] LABS: Basophil# 0.11 X10^3/uL; Basophil% 0.5 % (0-1); Eosinophil# 0.01 X10^3/uL; Hematocrit 45.7 % (40-54); Hemoglobin 14.4 g/dL (13.0-16.5); Lymphocyte % 7.3 % (19-41); Mean Corp Hgb Conc 31.5 g/dL (32-36); Mean Corpuscular Hgb 27.6 pg (27.0-32.0); Mean Corpuscular Volume 87.5 fL (80-94); Mean Platelet Vol. 11.8 fl (6.2-12.0); Monocyte# 2.89 X10^3/uL; Monocyte% 12.5 % (0-10); NRBC Flagged by Analyzer 0 % (0-5); Neutrophil # 17.98 X10^3/uL (2.7-7.7); Neutrophil % 77.7 % (47-70); POSITIVE DIFFERENTIAL YES; Platelet Count 173 K/mm3 (150-450); RBC Distribution Width CV 13.9 % (11.6-14.6); RBC Distribution Width SD 44.1 fl (35.1-43.9); Red Blood Count 5.22 M/mm3 (4.6-6.2); White Blood Count 23.2 K/mm3 (4.4-11.0)
[2024-06-08 06:51] LABS: Differential Indicated SCAN CRITERIA MET
[2024-06-08 07:21] LABS: Anion Gap 9 (5-15); BUN 72 mg/dL (7-18); BUN/Creat Ratio 38.1 RATIO (10-20); Chloride 110 mmol/L (98-107); Creatinine, Serum 1.89 mg/dL (0.70-1.30); EST Glomerular Filtration Rate 36 mL/min (>60); Est Glom Filt Rate - Afr Amer 44 mL/min (>60); Glucose 213 mg/dL (74-106); Potassium 4.3 mmol/L (3.5-5.1); Sodium Level 143 mmol/L (136-145)
[2024-06-08 07:56] LABS: Partial Thromboplast Time 71.5 Seconds (24.1-36.2)
[2024-06-08 08:23] VITALS: O2SAT 95
[2024-06-08 08:36] LABS: Differential Comment SCANNED; Platelet Estimate ADEQUATE (ADEQ); Red Cell Morphology NORM C+C NORMAL (NORM C&C)
--- NOTE | 2024-06-08 09:11 | PN.SURG_ITS ---
Subjective Subjective Patient seen and examined this morning. Much better. Able to tell me he's in [facility] at [facility]. He is off of supplemental O2 without any SOB. Objective Data Objective Data Vital Signs: Vital Signs Temp Pulse Resp BP Pulse Ox O2 Del Method O2 Flow Rate 98.1 F 85 18 106/67 95 Nasal Cannula 2 06/08/24 03:30 06/08/24 03:30 06/08/24 03:30 06/08/24 03:30 06/08/24 08:23 06/08/24 08:23 06/08/24 08:23 FiO2 30 06/06/24 15:34 Oxygen Flow Rate (L/min) 2 Oxygen Delivery Method Nasal Cannula Weight: 235 lb 7.259 oz Body Mass Index (BMI) 36.8 Intake & Output: Intake and Output for Last 24 Hours 06/06/24 06/07/24 06/08/24 23:59 23:59 23:59 Intake Total 888.04 / 888.04 480.00 / 480.00 Output Total 2530 / 3030 1790 / 2556 1836 / 1836 Balance -1641.96 / -2141.96 -1310.00 / -2076.00 -1836 / -1836 Lab / Micro Data 06/08/24 06:25 06/08/24 06:25 Labs: Laboratory Results - last 24 hr 06/06/24 08:15: Diff Path Review Reviewed 06/07/24 07:08: Diff Path Review Reviewed 06/07/24 09:13: POC Glucose 222 H 06/07/24 11:47: POC Glucose 262 H 06/07/24 12:05: APTT 70.0 H 06/07/24 16:56: POC Glucose 228 H 06/07/24 18:15: APTT 68.5 H 06/07/24 21:24: POC Glucose 249 H 06/08/24 00:16: APTT 65.3 H 06/08/24 06:25: WBC 23.2 H, RBC 5.22, Hgb 14.4, Hct 45.7, MCV 87.5, MCH 27.6, M CHC 31.5 L, RDW Std Deviation 44.1 H, RDW Coeff of Tyesha 13.9, Plt Count 173, MPV 11.8, Immature Gran % (Auto) 2.000 H, Neut % (Auto) 77.7 H, Lymph % (Auto) 7.3 L , [place] % (Auto) 12.5 H, Eos % (Auto) 0.0, Baso % (Auto) 0.5, Absolute Neuts (auto) 18.0 H, Absolute Lymphs (auto) 1.70, Nucleated RBC % 0, Differential Comment SCANNED, Diff Path Review May foll, Platelet Estimate ADEQUATE, RBC Morphology NORM C+C, APTT 71.5 H, Sodium 143, Potassium 4.3, Chloride 110 H, Carbon Dioxide 24.0, Anion Gap 9, BUN 72 H, Creatinine 1.89 H, Estim Creat Clear Calc 33.90, Est GFR (MDRD) Af Amer 44 L, Est GFR (MDRD) Non-Af 36 L, B UN/Creatinine Ratio 38.1 H, Glucose 213 H, Calcium 9.0 Physical Exam Narrative Head and neck: Drains SS, Strip well, no clot. VAC holding suction over incision. Expected swelling on neck.No signs of bleeding. Shrugs shoulders. Const alert and oriented x3 Eyes EOMs intact bilaterally Neck Neck Narrative: C collar in place No pressure over the incision. Patient sitting up Resp no retractions Resp Narrative: High flow NC in place, saturations in the mid 90s Cardio regular rate Extremity Extremity Narrative: SCDs on and activated 5+ general purchasing agent strength bilaterally on my exam today. Sensation to light touch intact on the upper extremities throughout. Assessment & Plan Assessment/Plan (1) Cervical myelopathy: PLAN: S/p muscle flap closure for cervical spine No bleeding since Heparin started POST-OPERATIVE PLAN * Plan to keep incisional wound VAC until 14 June 2024, at which time we will look at the incision and then replaced the incisional wound VAC (anticipate 3 weeks of incisional wound VAC). * Continue drain care with every 4 hour emptying and stripping of the drains. * Drains to stay in until consistently less than 30 cc in 24 hour period. * Head of bed greater than 45 degrees to pressure offload the incision. * Plan for arms at sides and no extreme shoulder abduction/extreme flexion of arms. * Plastics will follow. Charges/Coding Procedures Integumentary 111xxx-113xx: 21875 Global Visit
[2024-06-08] MEDS: Glucerna Shake 120 ML LIQUID PO ×3 (09:42→17:48)
[2024-06-08] MEDS: Senna/Docusate Sodium 1 Tablet 2 TABLET PO ×2 (09:43→22:25)
[2024-06-08] MEDS: Empagliflozin 25 MG Tablet PO (09:43)
[2024-06-08] MEDS: Losartan Potassium 100 MG Tablet PO (09:44)
[2024-06-08] MEDS: Furosemide 40 MG Tablet PO (09:44)
[2024-06-08] MEDS: Insulin Lispro 100 UNIT/ML INSULN.PEN SC ×4 (09:45→22:30)
--- NOTE | 2024-06-08 11:12 | CASEMGMT ---
Addendum entered by Carito Ovalles 06/08/24 11:32: Social Work Pt's son Demetris called back. SW spoke w/him about the possibility of pt going to rehab rather than TCU. Son is fine w/pt going to rehab or TCU, as long as he can stay here. SW will continue to follow in regard to discharge plan. JIHAN Diego Original Note: Social Work Pt is not able to speak w/SW today, not fully alert and oriented. SW called son Demetris, message left. SW will continue to follow. JIHAN Diego
[2024-06-08] MEDS: Acetaminophen 500 MG Tablet 1000 MG PO ×2 (13:17→22:25)
[2024-06-08 13:21] VITALS: O2SAT 97
[2024-06-08 13:35] LABS: Bedside Glucose 244 mg/dL (74-106)
--- NOTE | 2024-06-08 14:01 | PN.HOSP_ITS ---
Reason for Visit Reason for Visit: Diagnoses Hypothyroidism, unspecified (06/04/24) Type 2 diabetes mellitus with hyperglycemia (06/04/24) Obesity, unspecified (06/04/24) Hyperlipidemia, unspecified (06/04/24) Other specified diseases of spinal cord (06/04/24) Disease of spinal cord, unspecified (06/04/24) Essential (primary) hypertension (06/04/24) Cerebral infarction, unspecified (06/04/24) Acute respiratory failure with hypoxia (06/04/24) Unspecified osteoarthritis, unspecified site (06/04/24) Arthrodesis status (06/04/24) Subjective Subjective Patient was seen and examined today, he appears comfortable at this time, he is on 2 L of oxygen via nasal cannula. Patient does not carry on a conversation with this examiner. Objective Data Objective Data Vital Signs: Vital Signs Temp Pulse Resp BP Pulse Ox O2 Del Method O2 Flow Rate 98.1 F 85 18 106/67 97 Nasal Cannula 45 06/08/24 03:30 06/08/24 03:30 06/08/24 03:30 06/08/24 03:30 06/08/24 13:21 06/08/24 08:23 06/08/24 13:21 FiO2 30 06/06/24 15:34 Oxygen Flow Rate (L/min) 45 Oxygen Delivery Method Nasal Cannula Weight: 106.8 kg Body Mass Index (BMI) 36.8 Intake & Output: Intake and Output for Last 24 Hours 06/06/24 06/07/24 06/08/24 23:59 23:59 23:59 Intake Total 888.04 / 888.04 480.00 / 480.00 Output Total 2530 / 3030 1790 / 2556 2309 / 2309 Balance -1641.96 / -2141.96 -1310.00 / -2076.00 -2309 / -2309 Lab / Micro Data 06/08/24 06:25 06/08/24 06:25 Labs: Laboratory Results - last 24 hr 06/06/24 08:15: Diff Path Review Reviewed 06/07/24 07:08: Diff Path Review Reviewed 06/07/24 16:56: POC Glucose 228 H 06/07/24 18:15: APTT 68.5 H 06/07/24 21:24: POC Glucose 249 H 06/08/24 00:16: APTT 65.3 H 06/08/24 06:25: WBC 23.2 H, RBC 5.22, Hgb 14.4, Hct 45.7, MCV 87.5, MCH 27.6, M CHC 31.5 L, RDW Std Deviation 44.1 H, RDW Coeff of Tyesha 13.9, Plt Count 173, MPV 11.8, Immature Gran % (Auto) 2.000 H, Neut % (Auto) 77.7 H, Lymph % (Auto) 7.3 L , Traverse % (Auto) 12.5 H, Eos % (Auto) 0.0, Baso % (Auto) 0.5, Absolute Neuts (auto) 18.0 H, Absolute Lymphs (auto) 1.70, Nucleated RBC % 0, Differential Comment SCANNED, Diff Path Review May foll, Platelet Estimate ADEQUATE, RBC Morphology NORM C+C, APTT 71.5 H, Sodium 143, Potassium 4.3, Chloride 110 H, Carbon Dioxide 24.0, Anion Gap 9, BUN 72 H, Creatinine 1.89 H, Estim Creat Clear Calc 33.90, Est GFR (MDRD) Af Amer 44 L, Est GFR (MDRD) Non-Af 36 L, B UN/Creatinine Ratio 38.1 H, Glucose 213 H, Calcium 9.0 06/08/24 13:12: POC Glucose 244 H Physical Exam Narrative alert and no apparent distress Constitutional Narrative: Patient does not carry on a conversation with this examiner General Appearance: cooperative, well kempt and well developed Orientation / Consciousness: awake HEENT normocephalic, head/scalp atraumatic and moist oral mucous membranes Eyes PERRL, EOMs intact bilaterally and conjunctivae normal Neck supple, no JVD, thyroid normal and no carotid bruits General: trachea midline Resp normal respiratory effort, no retractions, no use of accessory muscles and clear to auscultation bilaterally Auscultation: Negative for rales, rhonchi or wheezes Cardio regular rate, regular rhythm, S1 normal heart sound, S2 normal heart sound, no murmurs, no rub and no gallops GI normal to inspection, nondistended, normoactive bowel sounds, soft to palpation, non-tender and non-distended Extremity no clubbing, cyanosis or edema Skin no rashes or lesions noted General Skin Exam: no breakdown Neuro CN's II-XII intact bilaterally, moves all extremities, no focal motor deficits and no sensory deficits noted Sensorium / Orientation: awake and alert Psych Psych Narrative: Patient does not carry on a conversation with examiner, he will say few words, he does not appear confused Assessment & Plan Assessment/Plan (1) Status post cervical spinal fusion: (2) Acute hypoxemic respiratory failure: PLAN: Plan 1. Acute hypoxic respiratory failure secondary to bilateral pulmonary emboli- critical care is participating in his care, I will transition the patient over to Lovenox and stop his heparin drip #2 encephalopathy-etiology unclear, supportive care at this point is being administered #3 acute kidney injury-patient's creatinine has stabilized at this point #4 type 2 diabetes-patient's blood sugars will be monitored, sliding scale insulin will be administered as needed #5 hypothyroidism-patient is on Synthroid #6 essential hypertension-patient remains on his present blood pressure medications Total clinical time spent by myself addressing patient's medical issues, reviewing all his data, and collaborating with patient's care team: 35 minutes Charges/Coding Visit Charges Inpatient E&M: 38019 Subs Hosp L2
[2024-06-08 15:38] VITALS: BP 107/51; PULSE 83; RESP 18; TEMP 36.1; O2SAT 96
[2024-06-08 16:25] LABS: Bedside Glucose 297 mg/dL (74-106)
[2024-06-08] MEDS: Insulin Lispro 100 UNIT/ML INSULN.PEN 9 UNIT SC (17:50)
[2024-06-08] MEDS: oxyCODONE 5 MG Tablet PO (20:43)
[2024-06-08 21:38] VITALS: BP 109/55; PULSE 78; RESP 16; TEMP 36.2; O2SAT 90
[2024-06-08] MEDS: Atenolol 25 MG Tablet PO (22:25)
[2024-06-08] MEDS: Atorvastatin Calcium 40 MG Tablet PO (22:25)
[2024-06-08] MEDS: Insulin Glargine-YFGN 100 UNIT/ML Pen 27 UNIT SC (22:29)
[2024-06-08] MEDS: Enoxaparin 120 MG/0.8 ML Syringe 110 MG SC (22:34)
[2024-06-08 22:53] LABS: Bedside Glucose 349 mg/dL (74-106)
[2024-06-09] VITALS (8 sets, daily range): BP systolic 91–115; BP diastolic 54–63; PULSE 68–80; RESP 16–18; TEMP 35.9–36.6; O2SAT 88–98; BMI 36.8
[2024-06-09] MEDS: Insulin Lispro 100 UNIT/ML INSULN.PEN SC ×4 (07:02→21:41)
[2024-06-09 07:40] LABS: Bedside Glucose 225 mg/dL (74-106)
--- NOTE | 2024-06-09 09:46 | PCM.PN.ORT ---
Subjective Subjective Postop day 5 status post C3-T1 fusion with layered plastic surgery closure. Patient being treated for pulm embolism. Drowsy but responds after multiple attempts. I was able to have him move bilateral lower extremity and left upper extremity but not the right upper extremity today. Objective Data Objective Data Vital Signs: Vital Signs Temp Pulse Resp BP Pulse Ox O2 Del Method O2 Flow Rate 97.8 F 80 16 103/63 98 Nasal Cannula 2 06/09/24 03:55 06/09/24 03:55 06/09/24 03:55 06/09/24 03:55 06/09/24 03:55 06/09/24 03:55 06/09/24 03:55 FiO2 30 06/06/24 15:34 Oxygen Flow Rate (L/min) 2 Oxygen Delivery Method Nasal Cannula Weight: 235 lb 7.259 oz Body Mass Index (BMI) 36.8 Intake & Output: Intake and Output for Last 24 Hours 06/07/24 06/08/24 06/09/24 23:59 23:59 23:59 Intake Total 480.00 / 480.00 250 / 450 200 / 200 Output Total 1790 / 2556 2499 / 2889 390 / 390 Balance -1310.00 / -2076.00 -2249 / -2439 -190 / -190 Lab / Micro Data 06/08/24 06:25 06/08/24 06:25 Labs: Laboratory Results - last 24 hr 06/08/24 13:12: POC Glucose 244 H 06/08/24 16:03: POC Glucose 297 H 06/08/24 22:27: POC Glucose 349 H 06/09/24 06:59: POC Glucose 225 H Physical Exam Narrative Collar lower anterior pad missing. Discussed with nurse to replace this. Neuroexam difficult to obtain but I was able to have him move his left upper and bilateral lower extremity after multiple attempts. Assessment & Plan Assessment/Plan (1) Status post cervical spinal fusion: (2) Cervical myelopathy: PLAN: Plan Postop day 5 status post C3-T1 fusion with plastic surgery flap closure. Drain and wound VAC management per plastic surgery Dr. Chu. Collar pad will need to be changed to avoid pressure sores. Will discuss with hospitalist regarding possibility of reducing oxycodone dosage for him to get more alert. Continue PT OT is much as able to. Called and spoke with patient's son Demetris to give him an update.
[2024-06-09] MEDS: Glucerna Shake 120 ML LIQUID PO ×3 (09:58→18:03)
[2024-06-09] MEDS: Senna/Docusate Sodium 1 Tablet 2 TABLET PO ×2 (09:59→21:43)
[2024-06-09] MEDS: Enoxaparin 120 MG/0.8 ML Syringe 110 MG SC ×2 (09:59→21:43)
[2024-06-09] MEDS: Losartan Potassium 100 MG Tablet PO (10:00)
[2024-06-09] MEDS: Empagliflozin 25 MG Tablet PO (10:00)
[2024-06-09] MEDS: Furosemide 40 MG Tablet PO (10:00)
--- NOTE | 2024-06-09 10:18 | PN.SURG_ITS ---
Subjective Subjective Able to follow commands on rounds today. Told me he's in some pain from his neck and does not want to get to a chair today. Objective Data Objective Data Vital Signs: Vital Signs Temp Pulse Resp BP Pulse Ox O2 Del Method O2 Flow Rate 97.8 F 80 16 103/63 95 Nasal Cannula 2 06/09/24 03:55 06/09/24 03:55 06/09/24 03:55 06/09/24 03:55 06/09/24 09:53 06/09/24 09:53 06/09/24 09:53 FiO2 30 06/06/24 15:34 Oxygen Flow Rate (L/min) 2 Oxygen Delivery Method Nasal Cannula Weight: 235 lb 7.259 oz Body Mass Index (BMI) 36.8 Intake & Output: Intake and Output for Last 24 Hours 06/07/24 06/08/24 06/09/24 23:59 23:59 23:59 Intake Total 480.00 / 480.00 250 / 450 200 / 200 Output Total 1790 / 2556 2499 / 2889 390 / 390 Balance -1310.00 / -2076.00 -2249 / -2439 -190 / -190 Lab / Micro Data 06/08/24 06:25 06/08/24 06:25 Labs: Laboratory Results - last 24 hr 06/08/24 13:12: POC Glucose 244 H 06/08/24 16:03: POC Glucose 297 H 06/08/24 22:27: POC Glucose 349 H 06/09/24 06:59: POC Glucose 225 H Physical Exam Narrative Head and neck: Drains SS, Strip well, no clot. VAC holding suction over incision. Expected swelling on neck. No signs of bleeding. Neck/incision appropriately padded with C colar in place Shrugs shoulders. Const alert and oriented x3 Eyes EOMs intact bilaterally Neck Neck Narrative: C collar in place No pressure over the incision. 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 Sensation to light touch intact on the upper extremities throughout. Assessment & Plan Assessment/Plan (1) Cervical myelopathy: PLAN: S/p muscle flap closure for cervical spine No bleeding since Heparin started POST-OPERATIVE PLAN * Plan to keep incisional wound VAC until Monday, 14 June 2024, at which time we will look at the incision and then replaced the incisional wound VAC (anticipate 3 weeks of incisional wound VAC). * Continue drain care with every 4 hour emptying and stripping of the drains. * Drains to stay in until consistently less than 30 cc in 24 hour period. * Head of bed greater than 45 degrees to pressure offload the incision. * Plan for arms at sides and no extreme shoulder abduction/extreme flexion of arms. * Plastics will follow. Charges/Coding Procedures Integumentary [id number]: [id number] Global Visit
[2024-06-09] MEDS: Insulin Lispro 100 UNIT/ML INSULN.PEN 9 UNIT SC ×3 (10:39→18:03)
[2024-06-09] MEDS: Acetaminophen 500 MG Tablet 1000 MG PO ×2 (13:35→21:42)
[2024-06-09 13:48] LABS: Bedside Glucose 249 mg/dL (74-106)
--- NOTE | 2024-06-09 15:44 | PN.HOSP_ITS ---
Reason for Visit Reason for Visit: Diagnoses Hypothyroidism, unspecified (06/04/24) Type 2 diabetes mellitus with hyperglycemia (06/04/24) Obesity, unspecified (06/04/24) Hyperlipidemia, unspecified (06/04/24) Other specified diseases of spinal cord (06/04/24) Disease of spinal cord, unspecified (06/04/24) Essential (primary) hypertension (06/04/24) Cerebral infarction, unspecified (06/04/24) Acute respiratory failure with hypoxia (06/04/24) Unspecified osteoarthritis, unspecified site (06/04/24) Arthrodesis status (06/04/24) Subjective Subjective Patient was seen and examined today, he remains lethargic and does not carry on a conversation with this examiner but nods his head to questions. Patient is currently on room air at this time Objective Data Objective Data Vital Signs: Vital Signs Temp Pulse Resp BP Pulse Ox O2 Del Method O2 Flow Rate 96.6 F L 69 18 104/54 L 94 Room Air 4 06/09/24 10:00 06/09/24 10:00 06/09/24 10:00 06/09/24 10:00 06/09/24 10:00 06/09/24 10:00 06/09/24 13:32 FiO2 30 06/06/24 15:34 Oxygen Flow Rate (L/min) 4 Oxygen Delivery Method Room Air Weight: 106.7 kg Body Mass Index (BMI) 36.8 Intake & Output: Intake and Output for Last 24 Hours 06/07/24 06/08/24 06/09/24 23:59 23:59 23:59 Intake Total 480.00 / 480.00 250 / 450 200 / 200 Output Total 1790 / 2556 2499 / 2889 990 / 990 Balance -1310.00 / -2076.00 -2249 / -2439 -790 / -790 Lab / Micro Data 06/08/24 06:25 06/08/24 06:25 Labs: Laboratory Results - last 24 hr 06/08/24 16:03: POC Glucose 297 H 06/08/24 22:27: POC Glucose 349 H 06/09/24 06:59: POC Glucose 225 H 06/09/24 13:29: POC Glucose 249 H Physical Exam Narrative alert and no apparent distress Constitutional Narrative: Patient does not carry on a conversation with this examiner General Appearance: cooperative, well kempt and well developed Orientation / Consciousness: awake HEENT normocephalic, head/scalp atraumatic and moist oral mucous membranes Eyes PERRL, EOMs intact bilaterally and conjunctivae normal Neck supple, no JVD, thyroid normal and no carotid bruits General: trachea midline Resp normal respiratory effort, no retractions, no use of accessory muscles and clear to auscultation bilaterally Auscultation: Negative for rales, rhonchi or wheezes Cardio regular rate, regular rhythm, S1 normal heart sound, S2 normal heart sound, no murmurs, no rub and no gallops GI normal to inspection, nondistended, normoactive bowel sounds, soft to palpation, non-tender and non-distended Extremity no clubbing, cyanosis or edema Skin no rashes or lesions noted General Skin Exam: no breakdown Neuro CN's II-XII intact bilaterally, moves all extremities, no focal motor deficits and no sensory deficits noted Sensorium / Orientation: awake and alert Psych Psych Narrative: Patient does not carry on a conversation with examiner, he will say few words, he does not appear confused Assessment & Plan Assessment/Plan (1) Status post cervical spinal fusion: (2) Acute hypoxemic respiratory failure: PLAN: Plan 1. Acute hypoxic respiratory failure secondary to bilateral pulmonary emboli- critical care is participating in his care, patient is currently on Lovenox and will need to be transition to either Eliquis or Xarelto, patient is currently on room air at this time #2 encephalopathy-etiology unclear, supportive care at this point is being administered patient appears to answer some questions but will not carry on a conversation #3 acute kidney injury-patient's creatinine has stabilized at this point #4 type 2 diabetes-patient's blood sugars will be monitored, sliding scale insulin will be administered as needed #5 hypothyroidism-patient is on Synthroid #6 essential hypertension-patient remains on his present blood pressure medications Total clinical time spent by myself addressing patient's medical issues, reviewing all his data, and collaborating with patient's care team: 35 minutes Charges/Coding Visit Charges Inpatient E&M: 52049 Subs Hosp L2
[2024-06-09 18:21] LABS: Bedside Glucose 242 mg/dL (74-106)
[2024-06-09] MEDS: Insulin Glargine-YFGN 100 UNIT/ML Pen 27 UNIT SC (21:42)
[2024-06-09] MEDS: Atenolol 25 MG Tablet PO (21:43)
[2024-06-09] MEDS: Atorvastatin Calcium 40 MG Tablet PO (21:43)
[2024-06-09 23:09] LABS: Bedside Glucose 196 mg/dL (74-106)
[2024-06-10] VITALS (11 sets, daily range): BP systolic 100–127; BP diastolic 56–68; PULSE 60–72; RESP 16–18; TEMP 36.1–36.5; O2SAT 90–98; BMI 37.3
[2024-06-10] MEDS: Levothyroxine 75 MCG Tablet PO (05:16)
[2024-06-10] MEDS: Acetaminophen 500 MG Tablet 1000 MG PO ×3 (05:16→21:30)
[2024-06-10] MEDS: 0.9% Saline Lock 10 ML Syringe IV (05:27)
[2024-06-10 06:41] LABS: Bedside Glucose 134 mg/dL (74-106)
--- NOTE | 2024-06-10 08:44 | NURSING ---
pt stated he did not want to eat or take his medications this am. will check back with him soon
[2024-06-10] MEDS: Glucerna Shake 120 ML LIQUID PO ×3 (08:47→15:43)
[2024-06-10] MEDS: Enoxaparin 120 MG/0.8 ML Syringe 110 MG SC ×2 (09:22→21:28)
--- NOTE | 2024-06-10 09:55 | PN.SURG_ITS ---
Subjective Subjective Able to talk to him this morning. He's apathetic but I can reorient him and get him to answer my questions. Seems sad. Objective Data Objective Data Vital Signs: Vital Signs Temp Pulse Resp BP Pulse Ox O2 Del Method O2 Flow Rate 97.7 F L 60 16 122/60 H 90 Room Air 2 06/10/24 08:17 06/10/24 08:27 06/10/24 08:17 06/10/24 08:17 06/10/24 08:28 06/10/24 08:28 06/10/24 08:17 FiO2 30 06/06/24 15:34 Oxygen Flow Rate (L/min) 2 Oxygen Delivery Method Room Air Weight: 238 lb 8.642 oz Body Mass Index (BMI) 37.3 Intake & Output: Intake and Output for Last 24 Hours 06/08/24 06/09/24 06/10/24 23:59 23:59 23:59 Intake Total 250 / 450 440 / 440 Output Total 2499 / 2889 1770 / 1770 4 / 4 Balance -2249 / -2439 -1330 / -1330 -4 / -4 Lab / Micro Data 06/08/24 06:25 06/08/24 06:25 Labs: Laboratory Results - last 24 hr 06/09/24 13:29: POC Glucose 249 H 06/09/24 18:02: POC Glucose 242 H 06/09/24 21:37: POC Glucose 196 H 06/10/24 06:21: POC Glucose 134 H Physical Exam Narrative Head and neck: Drains SS, Strip well, no clot. VAC holding suction over incision. Expected swelling on neck. No signs of bleeding. Neck/incision appropriately padded with C colar in place Shrugs shoulders. Const alert and oriented x3 Eyes EOMs intact bilaterally Neck Neck Narrative: C collar in place No pressure over the incision. 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 Sensation to light touch intact on the upper extremities throughout. Assessment & Plan Assessment/Plan (1) Cervical myelopathy: PLAN: S/p muscle flap closure for cervical spine No bleeding since Heparin started POST-OPERATIVE PLAN * Plan to keep incisional wound VAC until Monday, 14 June 2024, at which time we will look at the incision and then replaced the incisional wound VAC (anticipate 3 weeks of incisional wound VAC). * Continue drain care with every 4 hour emptying and stripping of the drains. * Drains to stay in until consistently less than 30 cc in 24 hour period. * Head of bed greater than 45 degrees to pressure offload the incision. * Plan for arms at sides and no extreme shoulder abduction/extreme flexion of arms. * Plastics will follow. Discussed with nursing getting the patient in a chair today/working with rehabilitation Also discussed getting family to come visit (needs some support).
[2024-06-10 11:26] LABS: Bedside Glucose 151 mg/dL (74-106)
--- NOTE | 2024-06-10 11:30 | PCM.PN.ORT ---
Subjective Subjective Postop day 6 status post C3-T1 fusion, with postop pulmonary embolism. Breathing better with saturation in the 90s even with room air. Responding to commands better today. Denies any pain. Denies shortness of breath. He declined breakfast as well as PT session this morning per nursing. Objective Data Objective Data Vital Signs: Vital Signs Temp Pulse Resp BP Pulse Ox O2 Del Method O2 Flow Rate 97.7 F L 69 16 103/60 97 Nasal Cannula 2 06/10/24 11:20 06/10/24 11:20 06/10/24 11:20 06/10/24 11:20 06/10/24 11:20 06/10/24 11:20 06/10/24 11:20 FiO2 30 06/06/24 15:34 Oxygen Flow Rate (L/min) 2 Oxygen Delivery Method Nasal Cannula Weight: 238 lb 8.642 oz Body Mass Index (BMI) 37.3 Intake & Output: Intake and Output for Last 24 Hours 06/08/24 06/09/24 06/10/24 23:59 23:59 23:59 Intake Total 250 / 450 440 / 440 Output Total 2499 / 2889 1770 / 1770 234 / 234 Balance -2249 / -2439 -1330 / -1330 -234 / -234 Lab / Micro Data 06/08/24 06:25 06/08/24 06:25 Labs: Laboratory Results - last 24 hr 06/09/24 13:29: POC Glucose 249 H 06/09/24 18:02: POC Glucose 242 H 06/09/24 21:37: POC Glucose 196 H 06/10/24 06:21: POC Glucose 134 H 06/10/24 11:08: POC Glucose 151 H Physical Exam Narrative Dressing?2 YEHUDA drains in incisional VAC being managed by plastic surgery Dr. Chu. Able to follow commands today with baseline grade 4+ strength in all 4 extremities. Collar repositioned to fit better. Reposition patient to modified chair position within the bed with help of nursing. Still not completely oriented to time place and person, but appears to be oriented with other examiners at different times of the day. Assessment & Plan Assessment/Plan (1) Status post cervical spinal fusion: (2) Cervical myelopathy: PLAN: Plan Postop day 6 status post C3-T1 fusion with plastic surgery flap closure, with postoperative pulmonary embolism. Drain and wound VAC management per plastic surgery Dr. Chu. Adjusted collar to fit better. Oxycodone discontinued due to disorientation. Continue PT OT is much as able to. Frequent position changes to prevent sores.
[2024-06-10] MEDS: Insulin Lispro 100 UNIT/ML INSULN.PEN 9 UNIT SC ×2 (13:05→15:42)
[2024-06-10] MEDS: Atenolol 25 MG Tablet PO ×2 (13:18→21:30)
[2024-06-10] MEDS: Empagliflozin 25 MG Tablet PO (13:19)
[2024-06-10 14:39] LABS: Pathologist Review Reviewed
[2024-06-10] MEDS: Insulin Lispro 100 UNIT/ML INSULN.PEN SC ×2 (15:42→21:26)
--- NOTE | 2024-06-10 15:58 | PCM.PN.HOSP ---
Subjective Subjective Refused interact today, no issues overnight Objective Data Objective Data Vital Signs: Vital Signs Temp Pulse Resp BP Pulse Ox O2 Del Method O2 Flow Rate 97.7 F L 64 16 100/56 L 98 Nasal Cannula 2 06/10/24 15:45 06/10/24 15:45 06/10/24 15:45 06/10/24 15:45 06/10/24 15:45 06/10/24 15:45 06/10/24 15:45 FiO2 30 06/06/24 15:34 Oxygen Flow Rate (L/min) 2 Oxygen Delivery Method Nasal Cannula Weight: 238 lb 8.642 oz Body Mass Index (BMI) 37.3 Intake & Output: Intake and Output for Last 24 Hours 06/09/24 06/10/24 06/11/24 03:59 03:59 03:59 Intake Total 450 / 450 240 / 240 Output Total 2123 / 2123 1384 / 1384 230 / 230 Balance -1673 / -1673 -1144 / -1144 -230 / -230 Lab / Micro Data 06/08/24 06:25 06/08/24 06:25 Labs: Laboratory Results - last 24 hr 06/08/24 06:25: Diff Path Review Reviewed 06/09/24 18:02: POC Glucose 242 H 06/09/24 21:37: POC Glucose 196 H 06/10/24 06:21: POC Glucose 134 H 06/10/24 11:08: POC Glucose 151 H Physical Exam Narrative General: Alert, not very cooperative, seems apathetic, no apparent distress HEENT: Atraumatic, PERRLA, EOMI, Normocephalic Oral: Moist Mucosa Neck: Supple, No JVD Lungs: Diminished, Normal air movement, No rhonchi, No wheeze, No rales Cardiovascular: Regular rate, Regular Rhythm, Normal S1, Normal S2, No murmurs Abdomen: Soft, Non Tender, Non-Distended, No Hepato-splenomegaly Extremities: No edema, Capillary Refill Less than 3 Seconds Skin: No rashes, No breakdown Musculoskeletal: No Tenderness to Palpation of Joints or Extremities Neurological: No focal neurological deficits, moves all extremities Psych/Mental Status: Flat Assessment & Plan Assessment/Plan (1) Status post cervical spinal fusion: (2) Acute hypoxemic respiratory failure: PLAN: Plan 1. Acute hypoxic respiratory failure secondary to bilateral pulmonary emboli in the setting of a C3-T1 fusion on 06/04/2024/metabolic versus toxic encephalopathy/KELVIN ? Currently on therapeutic Lovenox when ready for discharge after dressing changes and wound VAC changes are complete can plan for Eliquis ? She has been on therapeutic anticoagulation since 06/05/2024 ? It is unclear how encephalopathic he is, his oxycodone was held secondary to confusion, though he does have an open wound that is being aggressively treated by plastic surgery ? Renal functions improved and appears to be at baseline we will recheck in the morning 2. Essential HTN/HLD ? Continue with his home blood pressure medications ? Continue with his home cholesterol medications ? Blood pressures appear to be stable currently ? Will monitor make adjustments as necessary ? Echo on 06/06/2024 with an EF of 60% and a severely dilated right ventricle, this was done of the diagnosis of his PEs indicating right heart strain 3. DM2 ? Continue with insulin ? Accu-Cheks ACHS ? Will monitor make adjustments as necessary 4. Hypothyroidism ? Stable ? Continue with Synthroid DVT: Therapeutic Lovenox Charges/Coding Visit Charges Inpatient E&M: 56318 Subs Hosp L2
[2024-06-10 16:06] LABS: Bedside Glucose 272 mg/dL (74-106)
--- NOTE | 2024-06-10 16:42 | CHAPLAIN ---
Type of Pastoral Visit ___ Initial Visit _x__ Follow-up Visit ___ On-call Visit ___ General Patient Visit ___ Spiritual Assessment ___ Family Conference ___ Bereavement ___ Rapid Response ___ Code Blue ___ Other (describe below) Pastoral Care Referral From _x__ Patient _x_ Family ___ Nurse ___ Physician ___ Roller Skates Assembler ___ Anatomic Pathology Manager ___ Other (describe below) Sacrament/Intervention ___ Active listening ___ Anointing ___ Religious ___ Bereavement ___ Communion ___ Ann exploration ___ ___ Life review ___ Prayer ___ Reconciliation ___ Sacrament of Sick _x__ Supportive presence ___ Wedding ___ Other (describe below) Pastoral Comments patient is sleeping most of the time and is not responding at this visit; son is in the room (Jerrod); conversation on how the son is doing because he has been last year and this is a difficult time of year; supportive presence and listening; offer of return throughout the week to check on the patient
--- NOTE | 2024-06-10 21:00 | NURSING ---
Pt refusing tele monitor now. Keeps ripping it off and getting agitated. Left off tele for now. Will attempt to replace later.
[2024-06-10] MEDS: Insulin Glargine-YFGN 100 UNIT/ML Pen 27 UNIT SC (21:26)
[2024-06-10] MEDS: Atorvastatin Calcium 40 MG Tablet PO (21:30)
[2024-06-10] MEDS: Senna/Docusate Sodium 1 Tablet 2 TABLET PO (21:30)
[2024-06-10 22:01] LABS: Bedside Glucose 210 mg/dL (74-106)
[2024-06-11] VITALS (19 sets, daily range): BP systolic 80–121; BP diastolic 33–55; PULSE 51–65; RESP 13–18; TEMP 36.1–37; O2SAT 88–96; BMI 37.3
[2024-06-11] MEDS: 0.9% Saline Lock 10 ML Syringe IV ×2 (04:13→17:42)
[2024-06-11] MEDS: Ketorolac 30 MG/ML Syringe 15 MG IV (04:13)
[2024-06-11] MEDS: Levothyroxine 75 MCG Tablet PO (05:32)
[2024-06-11] MEDS: Acetaminophen 500 MG Tablet 1000 MG PO ×2 (05:32→14:14)
[2024-06-11 07:14] LABS: Absolute Lymphocyte Count 1.89 X10^3/uL (0.83-4.51); Absolute Neutrophil Count 32.7 X10^3/uL (2.0-7.7); Basophil# 0.12 X10^3/uL; Basophil% 0.3 % (0-1); Eosinophil# 0.01 X10^3/uL; Hematocrit 42.3 % (40-54); Hemoglobin 13.2 g/dL (13.0-16.5); Lymphocyte # 1.89 X10^3/ul (0.83-4.51); Lymphocyte % 4.8 % (19-41); Mean Corp Hgb Conc 31.2 g/dL (32-36); Mean Corpuscular Hgb 27.2 pg (27.0-32.0); Mean Corpuscular Volume 87.2 fL (80-94); Mean Platelet Vol. 11.7 fl (6.2-12.0); Monocyte# 3.52 X10^3/uL; NRBC Flagged by Analyzer 0 % (0-5); Neutrophil # 32.74 X10^3/uL (2.7-7.7); Neutrophil % 83.3 % (47-70); POSITIVE COUNT YES; POSITIVE DIFFERENTIAL YES; Platelet Count 201 K/mm3 (150-450); RBC Distribution Width CV 13.8 % (11.6-14.6); RBC Distribution Width SD 44.1 fl (35.1-43.9); Red Blood Count 4.85 M/mm3 (4.6-6.2); White Blood Count 39.3 K/mm3 (4.4-11.0)
[2024-06-11 07:18] LABS: Differential Indicated SCAN CRITERIA MET
[2024-06-11 07:50] LABS: Anion Gap 8 (5-15); BUN 97 mg/dL (7-18); Calcium,Total 8.6 mg/dL (8.5-10.1); Chloride 108 mmol/L (98-107); Creatinine, Serum 2.49 mg/dL (0.70-1.30); EST Glomerular Filtration Rate 26 mL/min (>60); Est Glom Filt Rate - Afr Amer 32 mL/min (>60); Estimated Creatinine Clearance 25.91 ml/min; Glucose 138 mg/dL (74-106); Potassium 4.3 mmol/L (3.5-5.1); Sodium Level 142 mmol/L (136-145)
--- NOTE | 2024-06-11 08:07 | RAD_ITS ---
STUDY: X-RAY CHEST REASON FOR EXAM: Male, 83 years old. Unexplained leukocytosis TECHNIQUE: Single AP portable view of the chest. COMPARISON: Comparison is made with prior study dated June 05, 2024. FINDINGS: EKG electrodes are seen. Stable elevation of the right hemidiaphragm with increased markings at the lung bases slightly worse on the right side suggestive of bibasilar atelectasis and/or early infiltrates. Follow-up recommended. There is no demonstrated pleural abnormality. There is mild cardiac enlargement. Normal mediastinum and nghia. Normal visualized pulmonary arteries. There is atherosclerotic calcification of the aortic arch with tortuosity. There are degenerative changes of the visualized thoracic spine. Prior lower cervical fusion. Prior right shoulder surgery. There is no demonstrated abnormality of the visualized soft tissue structures of the upper abdomen. RAD/Chest 1 View (Portable) IMPRESSION: Elevation of the right hemidiaphragm with increased markings at the lung bases worse at the right lung base suggestive of atelectasis and/or early infiltrates. Follow-up recommended. Electronically Signed: Ja Hernández MD at 9:03 EST ,
--- NOTE | 2024-06-11 08:31 | WOUNDNOTE ---
Wound VAC dressing remains intact to the mid upper back/neck. Good seal noted at 125mmHg low continuous suction. YEHUDA drains remain in place with minimal output.
[2024-06-11 08:37] LABS: Mucous, Urine 0 SEEN /hpf (<or=2+); Red Blood Cells-Urine 0 SEEN /hpf (0-5); Squamous Epithelial Cells - UA 0 SEEN /hpf (0-5)
[2024-06-11 08:39] LABS: Bedside Glucose 156 mg/dL (74-106)
[2024-06-11 08:40] LABS: Color, Urine Yellow (Yellow); Glucose, Dipstick 1000 mg/dl (Normal); Ketone-Dipstick Negative (Negative); Leukocyte Esterase-Dipstick 500 /ul (Negative); Nitrite-Dipstick Negative (Negative); Occult Blood-Urine 50 /ul (Negative); Protein-Dipstick 30 mg/dl (Negative); Specific Gravity, Urine 1.015 (1.002-1.030); Urine Bilirubin Dipstick Negative (Negative); Urine Clarity Cloudy (Clear); Urine Urobilinogen Normal (Normal)
[2024-06-11 08:49] LABS: Bacteria 3+ /hpf (None Seen); White Blood Cells 50-100 SEEN /hpf (0-5)
[2024-06-11] MEDS: 0.9% Normal Saline (1000mL) 1,000 ML 75 ML IV (09:30)
[2024-06-11] MEDS: Ceftriaxone 1 GM/50 ML BAG IV (09:51)
--- NOTE | 2024-06-11 10:16 | PCM.PN.HOSP ---
Subjective Subjective Slightly more interactive today, answers all questions with no Objective Data Objective Data Vital Signs: Vital Signs Temp Pulse Resp BP Pulse Ox O2 Del Method O2 Flow Rate 97.8 F 59 L 18 80/33 L 88 Room Air 2 06/11/24 09:20 06/11/24 09:20 06/11/24 09:20 06/11/24 09:20 06/11/24 09:20 06/11/24 09:20 06/11/24 03:20 FiO2 30 06/06/24 15:34 Oxygen Flow Rate (L/min) 2 Oxygen Delivery Method Room Air Weight: 238 lb 8.642 oz Body Mass Index (BMI) 37.3 Intake & Output: Intake and Output for Last 24 Hours 06/10/24 06/11/24 06/12/24 03:59 03:59 03:59 Intake Total 240 / 240 530 / 530 240 / 240 Output Total 1384 / 1384 1365 / 1365 325 / 325 Balance -1144 / -1144 -835 / -835 -85 / -85 Lab / Micro Data 06/11/24 07:03 06/11/24 07:03 Labs: Laboratory Results - last 24 hr 06/08/24 06:25: Diff Path Review Reviewed 06/10/24 11:08: POC Glucose 151 H 06/10/24 15:40: POC Glucose 272 H 06/10/24 21:20: POC Glucose 210 H 06/11/24 07:03: WBC 39.3 H*, RBC 4.85, Hgb 13.2, Hct 42.3, MCV 87.2, MCH 27.2, MCHC 31.2 L, RDW Std Deviation 44.1 H, RDW Coeff of Tyesha 13.8, Plt Count 201, MPV 11.7, Immature Gran % (Auto) 2.600 H, Neut % (Auto) 83.3 H, Lymph % (Auto) 4.8 L, [place] % (Auto) 9.0, Eos % (Auto) 0.0, Baso % (Auto) 0.3, Absolute Neuts (auto) 32.7 H, Absolute Lymphs (auto) 1.89, Nucleated RBC % 0, Diff Path Review October, Sodium 142, Potassium 4.3, Chloride 108 H, Carbon Dioxide 26.0, Anion Gap 8, BUN 97 H, Creatinine 2.49 H, Estim Creat Clear Calc 25.91, Est GFR (MDRD) Af Amer 32 L, Est GFR (MDRD) Non-Af 26 L, BUN/Creatinine Ratio 39.0 H, Glucose 138 H, Calcium 8.6 06/11/24 08:10: POC Glucose 156 H 06/11/24 08:30: Urine Color Yellow, Urine Clarity Cloudy, Urine pH 6.0, Ur Specific [place] 1.015, Urine Protein 30 H, Urine Glucose (UA) 1000 H, Urine Ketones Negative, Urine Occult Blood 50 H, Urine Nitrite Negative, Urine Bilirubin Negative, Urine Urobilinogen Normal, Ur Leukocyte Esterase 500 H, Urine RBC 0 SEEN, Urine WBC 50-100 SEEN, Ur Squamous Epith Cells 0 SEEN, Urine Bacteria 3+, Urine Mucus 0 SEEN Radiography Diagnostic Testing: Radiology Impression Chest X-Ray 06/11/24 08:07 IMPRESSION: Elevation of the right hemidiaphragm with increased markings at the lung bases worse at the right lung base suggestive of atelectasis and/or early infiltrates. Follow-up recommended. Electronically Signed: Ja Hernández MD at 9:03 EST , Physical Exam Narrative General: Alert, not very cooperative, seems apathetic, no apparent distress HEENT: Atraumatic, PERRLA, EOMI, Normocephalic Oral: Moist Mucosa Neck: Supple, No JVD Lungs: Diminished, Normal air movement, No rhonchi, No wheeze, No rales Cardiovascular: Regular rate, Regular Rhythm, Normal S1, Normal S2, No murmurs Abdomen: Soft, Non Tender, Non-Distended, No Hepato-splenomegaly Extremities: No edema, Capillary Refill Less than 3 Seconds Skin: No rashes, No breakdown, wound VAC in place, with drains with serosanguineous drainage Musculoskeletal: No Tenderness to Palpation of Joints or Extremities Neurological: No focal neurological deficits, moves all extremities Psych/Mental Status: Flat Assessment & Plan Assessment/Plan (1) Status post cervical spinal fusion: (2) Acute hypoxemic respiratory failure: PLAN: Plan 1. Acute hypoxic respiratory failure secondary to bilateral pulmonary emboli in the setting of a C3-T1 fusion on 06/04/2024/metabolic encephalopathy secondary to sepsis from a UTI/KELVIN ? Currently on therapeutic Lovenox when ready for discharge after dressing changes and wound VAC changes are complete can plan for Eliquis ?He has been on therapeutic anticoagulation since 06/05/2024 ? It is unclear how encephalopathic he is, his oxycodone was held secondary to confusion, though he does have an open wound that is being aggressively treated by plastic surgery ?Renal function worse today in the setting of his UTI, continue with IV fluids and antibiotics may need to increase IV fluids, it appears that he only takes Lasix for edema, he does have some right sided heart strain from his recent PEs which may complicate IV fluid administration 2. Essential HTN/HLD ?Will hold blood pressure medication secondary to his UTI and hypotension ? Continue with his home cholesterol medications ? Will monitor make adjustments as necessary ? Echo on 06/06/2024 with an EF of 60% and a severely dilated right ventricle, this was done of the diagnosis of his PEs indicating right heart strain 3. DM2 ? Continue with insulin ? Accu-Cheks ACHS ? Will monitor make adjustments as necessary 4. Hypothyroidism ? Stable ? Continue with Synthroid DVT: Therapeutic Lovenox Charges/Coding Visit Charges Inpatient E&M: 97257 Subs Hosp L2
[2024-06-11] MEDS: 0.9% Normal Saline (500mL Bag) 500 ML 999 ML IV ×2 (11:05→14:51)
[2024-06-11] MEDS: Insulin Lispro 100 UNIT/ML INSULN.PEN 9 UNIT SC ×2 (11:58→16:34)
[2024-06-11] MEDS: Enoxaparin 120 MG/0.8 ML Syringe 110 MG SC (11:58)
[2024-06-11] MEDS: Insulin Lispro 100 UNIT/ML INSULN.PEN SC ×2 (11:59→16:35)
[2024-06-11 12:21] LABS: Bedside Glucose 184 mg/dL (74-106)
--- NOTE | 2024-06-11 13:16 | PN.SURG_ITS ---
Subjective Subjective Patient is in bed. He is confused and restless. Objective Data Objective Data Vital Signs: Vital Signs Temp Pulse Resp BP Pulse Ox O2 Del Method O2 Flow Rate 97.8 F 59 L 18 94/55 L 88 Room Air 2 06/11/24 09:20 06/11/24 09:20 06/11/24 09:20 06/11/24 11:43 06/11/24 09:20 06/11/24 09:20 06/11/24 03:20 FiO2 30 06/06/24 15:34 Oxygen Flow Rate (L/min) 2 Oxygen Delivery Method Room Air Weight: 238 lb 8.642 oz Body Mass Index (BMI) 37.3 Intake & Output: Intake and Output for Last 24 Hours 06/09/24 06/10/24 06/11/24 23:59 23:59 23:59 Intake Total 440 / 440 300 / 530 1235 / 1235 Output Total 1770 / 1770 654 / 1369 1094 / 1094 Balance -1330 / -1330 -354 / -839 141 / 141 Lab / Micro Data Attestation: I reviewed the patient's lab results. 06/11/24 07:03 06/11/24 07:03 Labs: Laboratory Results - last 24 hr 06/08/24 06:25: Diff Path Review Reviewed 06/10/24 15:40: POC Glucose 272 H 06/10/24 21:20: POC Glucose 210 H 06/11/24 07:03: WBC 39.3 H*, RBC 4.85, Hgb 13.2, Hct 42.3, MCV 87.2, MCH 27.2, M CHC 31.2 L, RDW Std Deviation 44.1 H, RDW Coeff of Tyesha 13.8, Plt Count 201, MPV 11.7, Immature Gran % (Auto) 2.600 H, Neut % (Auto) 83.3 H, Lymph % (Auto) 4.8 L , [place] % (Auto) 9.0, Eos % (Auto) 0.0, Baso % (Auto) 0.3, Absolute Neuts (auto) 32.7 H, Absolute Lymphs (auto) 1.89, Nucleated RBC % 0, Diff Path Review May , Sodium 142, Potassium 4.3, Chloride 108 H, Carbon Dioxide 26.0, Anion Gap 8, BUN 97 H, Creatinine 2.49 H, Estim Creat Clear Calc 25.91, Est GFR (MDRD) Af Amer 32 L, Est GFR (MDRD) Non-Af 26 L, BUN/Creatinine Ratio 39.0 H, Glucose 138 H, Calcium 8.6 06/11/24 08:10: POC Glucose 156 H 06/11/24 08:30: Urine Color Yellow, Urine Clarity Cloudy, Urine pH 6.0, Ur Specific [place] 1.015, Urine Protein 30 H, Urine Glucose (UA) 1000 H, Urine Ketones Negative, Urine Occult Blood 50 H, Urine Nitrite Negative, Urine Bilirubin Negative, Urine Urobilinogen Normal, Ur Leukocyte Esterase 500 H, Urine RBC 0 SEEN, Urine WBC 50-100 SEEN, Ur Squamous Epith Cells 0 SEEN, Urine Bacteria 3+, Urine Mucus 0 SEEN 06/11/24 11:56: POC Glucose 184 H Radiography Diagnostic Testing: Radiology Impression Chest X-Ray 06/11/24 08:07 IMPRESSION: Elevation of the right hemidiaphragm with increased markings at the lung bases worse at the right lung base suggestive of atelectasis and/or early infiltrates. Follow-up recommended. Electronically Signed: Ja Hernández MD at 9:03 EST , Physical Exam Narrative Patient is in bed. He is restless. Jakob drains draining serosanguineous drainage (#1-47 cc, #2 - 12 cc /past 24 hours) Wound VAC dressing in place. C-collar is in placed. SCDs in place. Moves all extremities. Assessment & Plan Assessment/Plan (1) Cervical myelopathy: PLAN: Plan S/P muscle flap closure for cervical spine. No bleeding present. Patient confused and restless. WBC elevated. He is positive for UTI, Medicine is managing. He is on Ceftriaxone and receiving fluids. POST-OPERATIVE PLAN * Plan to keep incisional wound VAC until Monday, 14 June 2024, at which time we will look at the incision and then replaced the incisional wound VAC (anticipate 3 weeks of incisional wound VAC). * Continue drain care with every 4 hour emptying and stripping of the drains. * Drains to stay in until consistently less than 30 cc in 24 hour period. * Head of bed greater than 45 degrees to pressure offload the incision. * Plan for arms at sides and no extreme shoulder abduction/extreme flexion of arms. * Plastics will follow. Patient not able to get up out of bed due to confusion and not following commands well at this time. Patient's son has been visiting him Charges/Coding Procedures Integumentary [id number]: [id number] Global Visit
--- NOTE | 2024-06-11 15:32 | CHAPLAIN ---
Type of Pastoral Visit ___ Initial Visit ___ Follow-up Visit ___ On-call Visit ___ General Patient Visit ___ Spiritual Assessment ___ Family Conference ___ Bereavement ___ Rapid Response ___ Code Blue ___ Other (describe below) Pastoral Care Referral From ___ Patient ___ Family ___ Nurse ___ Physician ___ Road Builder ___ Production Expert ___ Other (describe below) Sacrament/Intervention ___ Active listening ___ Anointing ___ Cheondoism ___ Bereavement ___ Communion ___ Ann exploration ___ ___ Life review ___ Prayer ___ Reconciliation ___ Sacrament of Sick ___ Supportive presence ___ Wedding ___ Other (describe below) Pastoral Comments patient is sound asleep; family members are not present
[2024-06-11] MEDS: Midodrine HCl 5 MG Tablet 10 MG PO (16:32)
[2024-06-11] MEDS: Glucerna Shake 120 ML LIQUID PO (16:35)
[2024-06-11 16:59] LABS: Bedside Glucose 169 mg/dL (74-106)
[2024-06-11] MEDS: Norepinephrine 8 MG in 0.9% Normal Saline (250mL Bag) 242 ML 9.4 MG CONT INF (17:42)
[2024-06-11] MEDS: 0.9% Normal Saline (1000mL) 1,000 ML 125 ML IV (20:44)
[2024-06-11 21:32] LABS: Bedside Glucose 80 mg/dL (74-106)
[2024-06-12] VITALS (40 sets, daily range): BP systolic 96–150; BP diastolic 39–64; PULSE 54–78; RESP 12–20; TEMP 36.6–37.2; O2SAT 90–97; BMI 36.7
--- NOTE | 2024-06-12 05:54 | PN.CC_ITS ---
Assessment & Plan Assessment/Plan (1) Acute hypoxemic respiratory failure: PLAN: Plan RECOMMENDATIONS: 1. Continue Levophed to maintain a mean arterial pressure at or above 65 mmHg. 2. Additional IV fluids as ordered. 3. Start scheduled midodrine. 4. Continue antimicrobials, pending finalized infectious workup. 5. Send blood cultures. 6. Continue therapeutic Lovenox. 7. Wean supplemental oxygen to maintain saturations at or above 90%. IMPRESSIONS: 1. Septic shock The patient developed sepsis due to probable gram-negative UTI with acute sepsis related organ dysfunction as evidenced by fluid refractory hypotension, necessitating vasopressor support. The patient appears clinically stable this morning. Plan to continue antimicrobial therapy, pending finalized culture data. In the interim, wean Levophed to maintain mean arterial pressure at or above 65 mmHg. Start scheduled midodrine as ordered. Obtain and send blood cultures. 2. Acute hypoxemic respiratory failure secondary to bilateral pulmonary emboli The patient was noted to have bilateral pulmonary emboli on CTA with evidence of right heart strain. BNP and troponin were accordingly elevated. Continue to wean supplemental oxygen as tolerated. Continue therapeutic Lovenox. 3. Cervical spinal stenosis status post C3-C7 laminectomy with C3-T1 posterior spinal fusion Continue routine postoperative care per surgery services. 4. Recent history of CVA/obesity/hypertension/hyperlipidemia/hypothyroidism/coronary artery disease/neuropathy Complicates care, management, recovery and prognosis. Continue supportive measures as noted above. TIME: 33 minutes of critical care time, independent of procedures, was spent addressing the patient's septic shock, respiratory failure related to bilateral pulmonary emboli, review of all data and collaboration with care team. Subjective Subjective The patient was seen and examined at the bedside this morning. Events from the last 24 hours have been reviewed. If you recall, was previously following the patient due to a history of respiratory failure related to bilateral pulmonary emboli. Yesterday, the patient developed findings concerning for sepsis secondary to UTI. He developed fluid refractory hypotension, for which she was ultimately transferred to the intensive care unit and placed on low-dose Levophed. Currently, the patient is requiring Levophed at 5 mcg/min to maintain hemodynamic stability. The patient has no overt complaints this morning. His urine analysis was positive for leukocyte esterase and 3+ urine bacteria. Cultures are pending. White blood cell count is elevated at 37,000. Hemoglobin has dropped to 10.9 g/dL, following fluid resuscitation yesterday. BUN and creatinine are elevated at 88 and 2.27, respectively. Objective Data Objective Data The patient's most recent lab work, culture data and imaging studies have all been personally reviewed. Urine culture is currently pending. Vital Signs: Vital Signs Temp Pulse Resp BP Pulse Ox O2 Del Method O2 Flow Rate 98.3 F 64 16 122/46 H 97 Nasal Cannula 4 06/12/24 04:00 06/12/24 04:00 06/12/24 04:00 06/12/24 04:00 06/12/24 04:00 06/12/24 04:00 06/12/24 04:00 FiO2 30 06/06/24 15:34 Oxygen Flow Rate (L/min) 4 Oxygen Delivery Method Nasal Cannula Weight: 234 lb 9.149 oz Body Mass Index (BMI) 36.7 Intake & Output: Intake and Output for Last 24 Hours 06/10/24 06/11/24 06/12/24 23:59 23:59 23:59 Intake Total 300 / 530 2627.42 / 2638.72 56.5 / 56.5 Output Total 654 / 1369 1779 / 2179 695 / 695 Balance -354 / -839 848.42 / 459.72 -638.5 / -638.5 Lab / Micro Data Attestation: I reviewed the patient's lab results. 06/12/24 05:45 06/12/24 05:45 Labs: Laboratory Results - last 24 hr 06/11/24 07:03: WBC 39.3 H*, RBC 4.85, Hgb 13.2, Hct 42.3, MCV 87.2, MCH 27.2, M CHC 31.2 L, RDW Std Deviation 44.1 H, RDW Coeff of Tyesha 13.8, Plt Count 201, MPV 11.7, Immature Gran % (Auto) 2.600 H, Neut % (Auto) 83.3 H, Lymph % (Auto) 4.8 L , [place] % (Auto) 9.0, Eos % (Auto) 0.0, Baso % (Auto) 0.3, Absolute Neuts (auto) 32.7 H, Absolute Lymphs (auto) 1.89, Nucleated RBC % 0, Diff Path Review October, Sodium 142, Potassium 4.3, Chloride 108 H, Carbon Dioxide 26.0, Anion Gap 8, BUN 97 H, Creatinine 2.49 H, Estim Creat Clear Calc 25.91, Est GFR (MDRD) Af Amer 32 L, Est GFR (MDRD) Non-Af 26 L, BUN/Creatinine Ratio 39.0 H, Glucose 138 H, Calcium 8.6 06/11/24 08:10: POC Glucose 156 H 06/11/24 08:30: Urine Color Yellow, Urine Clarity Cloudy, Urine pH 6.0, Ur Specific [place] 1.015, Urine Protein 30 H, Urine Glucose (UA) 1000 H, Urine Ketones Negative, Urine Occult Blood 50 H, Urine Nitrite Negative, Urine Bilirubin Negative, Urine Urobilinogen Normal, Ur Leukocyte Esterase 500 H, Urine RBC 0 SEEN, Urine WBC 50-100 SEEN, Ur Squamous Epith Cells 0 SEEN, Urine Bacteria 3+, Urine Mucus 0 SEEN 06/11/24 11:56: POC Glucose 184 H 06/11/24 16:33: POC Glucose 169 H 06/11/24 20:43: POC Glucose 80 ABG Data ABG results: ABG 06/05/24 06/05/24 11:41 16:35 Specimen Type ART ART Sample Site R Radial R Radial pH 7.34 L 7.38 Bicarbonate Actual 17.9 L 20.6 L Total CO2 19 22 Base Excess -8 L -5 L O2 Saturation 89 L 88 L O2 % 100.0 100.0 ABG pCO2 33.5 L 34.5 L ABG pO2 60 L 55 L Dustin Test Positive Positive O2 Delivery Device NRB BiPAP Vent Mode Not entered Not entered POC PEEP 10 Radiography Diagnostic Testing: Radiology Impression Chest X-Ray 06/11/24 08:07 IMPRESSION: Elevation of the right hemidiaphragm with increased markings at the lung bases worse at the right lung base suggestive of atelectasis and/or early infiltrates. Follow-up recommended. Electronically Signed: Ja Hernández MD at 9:03 EST , Physical Exam Const alert and no apparent distress General Appearance: cooperative and ill appearing Positive for chronically HEENT normocephalic and head/scalp atraumatic Eyes EOMs intact bilaterally and conjunctivae normal Neck Neck Narrative: Rigid cervical collar in place. Chest inspection of chest normal Resp normal respiratory effort Auscultation: diminished lung sounds Cardio regular rate and regular rhythm GI normal to inspection, nondistended, normoactive bowel sounds Extremity no clubbing, cyanosis or edema Skin General Skin Exam: venous stasis and dermatitis Neuro CN's II-XII intact bilaterally and no focal motor deficits Psych Mood & Affect: flat affect Charges/Coding Procedures Hospitalists Procedures: 52509 Critical Care 1st Hr
[2024-06-12 06:09] LABS: Absolute Lymphocyte Count 1.71 X10^3/uL (0.83-4.51); Absolute Neutrophil Count 31.8 X10^3/uL (2.0-7.7); Basophil# 0.07 X10^3/uL; Basophil% 0.2 % (0-1); Eosinophil# 0.01 X10^3/uL; Hematocrit 34.4 % (40-54); Hemoglobin 10.9 g/dL (13.0-16.5); Lymphocyte # 1.71 X10^3/ul (0.83-4.51); Lymphocyte % 4.5 % (19-41); Mean Corp Hgb Conc 31.7 g/dL (32-36); Mean Corpuscular Volume 88.4 fL (80-94); Mean Platelet Vol. 11.8 fl (6.2-12.0); Monocyte# 3.09 X10^3/uL; Monocyte% 8.2 % (0-10); NRBC Flagged by Analyzer 0 % (0-5); Neutrophil % 84.3 % (47-70); POSITIVE COUNT YES; POSITIVE DIFFERENTIAL YES; Platelet Count 247 K/mm3 (150-450); RBC Distribution Width CV 14.3 % (11.6-14.6); RBC Distribution Width SD 45.9 fl (35.1-43.9); Red Blood Count 3.89 M/mm3 (4.6-6.2)
[2024-06-12 06:12] LABS: White Blood Count 37.7 K/mm3 (4.4-11.0)
[2024-06-12] MEDS: Acetaminophen 500 MG Tablet 1000 MG PO ×2 (06:12→13:14)
[2024-06-12] MEDS: Levothyroxine 75 MCG Tablet PO (06:12)
[2024-06-12 06:27] LABS: Anion Gap 4 (5-15); BUN 88 mg/dL (7-18); BUN/Creat Ratio 38.8 RATIO (10-20); Chloride 114 mmol/L (98-107); Creatinine, Serum 2.27 mg/dL (0.70-1.30); EST Glomerular Filtration Rate 29 mL/min (>60); Est Glom Filt Rate - Afr Amer 36 mL/min (>60); Estimated Creatinine Clearance 28.17 ml/min; Glucose 54 mg/dL (74-106); Sodium Level 145 mmol/L (136-145)
[2024-06-12] MEDS: Dextrose 10%-Water 250 ML 999 ML IV (07:00)
[2024-06-12 07:13] LABS: Differential Comment SCANNED
[2024-06-12 07:38] LABS: Bedside Glucose 59 mg/dL (74-106)
[2024-06-12 07:38] LABS: Bedside Glucose 105 mg/dL (74-106)
[2024-06-12] MEDS: 0.9% Normal Saline (1000mL) 1,000 ML 100 ML IV ×2 (08:00→18:42)
[2024-06-12] MEDS: 0.9% Saline Lock 10 ML Syringe IV ×2 (08:36→20:53)
[2024-06-12] MEDS: Midodrine HCl 5 MG Tablet 10 MG PO ×3 (08:37→16:57)
[2024-06-12 09:37] LABS: Bedside Glucose 123 mg/dL (74-106)
--- NOTE | 2024-06-12 09:52 | PN.HOSP_ITS ---
Subjective Subjective Has had some improvement in his renal function, he was found to be retaining urine and had a Jeffrey placed last night. Maintaining pressures with low-dose Levophed Objective Data Objective Data Vital Signs: Vital Signs Temp Pulse Resp BP Pulse Ox O2 Del Method O2 Flow Rate 98.9 F 61 16 122/50 H 93 Nasal Cannula 4 06/12/24 08:04 06/12/24 09:00 06/12/24 09:00 06/12/24 09:15 06/12/24 09:00 06/12/24 09:00 06/12/24 09:00 FiO2 30 06/06/24 15:34 Oxygen Flow Rate (L/min) 4 Oxygen Delivery Method Nasal Cannula Weight: 234 lb 9.149 oz Body Mass Index (BMI) 36.7 Intake & Output: Intake and Output for Last 24 Hours 06/11/24 06/12/24 06/13/24 03:59 03:59 03:59 Intake Total 530 / 530 2442.62 / 2453.92 1315.53 / 1315.53 Output Total 1365 / 1365 1464 / 1759 570 / 570 Balance -835 / -835 978.62 / 694.92 745.53 / 745.53 Lab / Micro Data 06/12/24 05:45 06/12/24 05:45 Labs: Laboratory Results - last 24 hr 06/11/24 11:56: POC Glucose 184 H 06/11/24 16:33: POC Glucose 169 H 06/11/24 20:43: POC Glucose 80 06/12/24 05:45: WBC 37.7 H*, RBC 3.89 L, Hgb 10.9 L, Hct 34.4 L, MCV 88.4, MCH 28.0, MCHC 31.7 L, RDW Std Deviation 45.9 H, RDW Coeff of Tyesha 14.3, Plt Count 247, MPV 11.8, Immature Gran % (Auto) 2.800 H, Neut % (Auto) 84.3 H, Lymph % (Auto) 4.5 L, [place] % (Auto) 8.2, Eos % (Auto) 0.0, Baso % (Auto) 0.2, Absolute Neuts (auto) 31.8 H, Absolute Lymphs (auto) 1.71, Nucleated RBC % 0, Differential Comment SCANNED, Diff Path Review October Sodium 145, Potassium 4.0, Chloride 114 H, Carbon Dioxide 27.0, Anion Gap 4 L, BUN 88 H, Creatinine 2.27 H, Estim Creat Clear Calc 28.17, Est GFR (MDRD) Af Amer 36 L, Est GFR (MDRD) Non-Af 29 L, BUN/Creatinine Ratio 38.8 H, Glucose 54 L, Calcium 8.0 L 06/12/24 06:53: POC Glucose 59 L 06/12/24 07:15: POC Glucose 105 06/12/24 09:19: POC Glucose 123 H Physical Exam Narrative General: Alert, not very cooperative, seems apathetic, no apparent distress HEENT: Atraumatic, PERRLA, EOMI, Normocephalic Oral: Moist Mucosa Neck: Supple, No JVD Lungs: Diminished, Normal air movement, No rhonchi, No wheeze, No rales Cardiovascular: Regular rate, Regular Rhythm, Normal S1, Normal S2, No murmurs Abdomen: Soft, Non Tender, Non-Distended, No Hepato-splenomegaly Extremities: No edema, Capillary Refill Less than 3 Seconds Skin: No rashes, No breakdown, wound VAC in place, with drains with serosanguineous drainage Musculoskeletal: No Tenderness to Palpation of Joints or Extremities Neurological: No focal neurological deficits, moves all extremities Psych/Mental Status: Flat Assessment & Plan Assessment/Plan (1) Status post cervical spinal fusion: (2) Acute hypoxemic respiratory failure: PLAN: Plan 1. Acute hypoxic respiratory failure secondary to bilateral pulmonary emboli in the setting of a C3-T1 fusion on 06/04/2024/metabolic encephalopathy secondary to sepsis from a UTI/KELVIN ? Currently on therapeutic Lovenox when ready for discharge after dressing changes and wound VAC changes are complete can plan for Eliquis ?He has been on therapeutic anticoagulation since 06/05/2024 ? It is unclear how encephalopathic he is, his oxycodone was held secondary to confusion, though he does have an open wound that is being aggressively treated by plastic surgery ? urine cultures pending, he did have a Jeffrey placed secondary to retention ? Continue with IV fluids, continue with Rocephin ? Continue with low-dose Levophed ? Appreciate chlorobutadiene scrubber operator assistance 2. Essential HTN/HLD ?Will hold blood pressure medication secondary to his UTI and hypotension ? Continue with his home cholesterol medications ? Will monitor make adjustments as necessary ? Echo on 06/06/2024 with an EF of 60% and a severely dilated right ventricle, this was done of the diagnosis of his PEs indicating right heart strain 3. DM2 ? Continue with insulin ? Accu-Cheks ACHS ? Will monitor make adjustments as necessary 4. Hypothyroidism ? Stable ? Continue with Synthroid DVT: Therapeutic Lovenox Charges/Coding Visit Charges Inpatient E&M: 56180 Subs Hosp L2
--- NOTE | 2024-06-12 10:53 | PN.SURG_ITS ---
Subjective Subjective Patient is resting comfortably in bed. He follows commands. Objective Data Objective Data Vital Signs: Vital Signs Temp Pulse Resp BP Pulse Ox O2 Del Method O2 Flow Rate 98.9 F 66 20 H 117/51 L 94 Nasal Cannula 4 06/12/24 08:04 06/12/24 10:00 06/12/24 10:00 06/12/24 10:30 06/12/24 10:00 06/12/24 10:00 06/12/24 10:00 FiO2 30 06/06/24 15:34 Oxygen Flow Rate (L/min) 4 Oxygen Delivery Method Nasal Cannula Weight: 234 lb 9.149 oz Body Mass Index (BMI) 36.7 Intake & Output: Intake and Output for Last 24 Hours 06/10/24 06/11/24 06/12/24 23:59 23:59 23:59 Intake Total 300 / 530 2627.42 / 2638.72 1367.73 / 1367.73 Output Total 654 / 1369 1779 / 2179 970 / 970 Balance -354 / -839 848.42 / 459.72 397.73 / 397.73 Lab / Micro Data 06/12/24 05:45 06/12/24 05:45 Labs: Laboratory Results - last 24 hr 06/11/24 11:56: POC Glucose 184 H 06/11/24 16:33: POC Glucose 169 H 06/11/24 20:43: POC Glucose 80 06/12/24 05:45: WBC 37.7 H*, RBC 3.89 L, Hgb 10.9 L, Hct 34.4 L, MCV 88.4, MCH 28.0, MCHC 31.7 L, RDW Std Deviation 45.9 H, RDW Coeff of Tyesha 14.3, Plt Count 247, MPV 11.8, Immature Gran % (Auto) 2.800 H, Neut % (Auto) 84.3 H, Lymph % (Auto) 4.5 L, [place] % (Auto) 8.2, Eos % (Auto) 0.0, Baso % (Auto) 0.2, Absolute Neuts (auto) 31.8 H, Absolute Lymphs (auto) 1.71, Nucleated RBC % 0, Differential Comment SCANNED, Diff Path Review October, Sodium 145, Potassium 4.0, Chloride 114 H, Carbon Dioxide 27.0, Anion Gap 4 L, BUN 88 H, Creatinine 2.27 H, Estim Creat Clear Calc 28.17, Est GFR (MDRD) Af Amer 36 L, Est GFR (MDRD) Non-Af 29 L, BUN/Creatinine Ratio 38.8 H, Glucose 54 L, Calcium 8.0 L 06/12/24 06:53: POC Glucose 59 L 06/12/24 07:15: POC Glucose 105 06/12/24 09:19: POC Glucose 123 H Micro: Microbiology 06/11/24 08:30 Urine Catheter - Catheter Urine Culture - Preliminary GNR lactose database reporting consultant Physical Exam Narrative Resting quietly in bed. Jakob drains are draining minimal serosanguineous drainage (Both #1 and #2 drains drained 7 ml in 24 hours). Wound VAC dressing in place, wound VAC at 125 mmHg C-collar in place. SCD's on. He moves all extremities. He is breathing comfortably on 4 L NC. Assessment & Plan Assessment/Plan (1) Cervical myelopathy: PLAN: Plan S/P muscle flap closure for cervical spine. No bleeding present. Minimal output from drains (7 ml in past 24 hours). He is resting quietly in bed, follows commands. Patient is now in ICU due to UTI/KELVIN being managed by hospitalist and field operations coordinator. He is on Ceftriaxone. POST-OPERATIVE PLAN * Plan to keep incisional wound VAC until Monday, 14 June 2024, at which time we will look at the incision and then replaced the incisional wound VAC (anticipate 3 weeks of incisional wound VAC). * Continue drain care with every 4 hour emptying and stripping of the drains. * Drains to stay in until consistently less than 30 cc in 24 hour period. * Head of bed greater than 45 degrees to pressure offload the incision. * Plan for arms at sides and no extreme shoulder abduction/extreme flexion of arms. * Plastics will follow.
[2024-06-12] MEDS: Ceftriaxone 1 GM/50 ML BAG IV (10:55)
[2024-06-12] MEDS: Enoxaparin 120 MG/0.8 ML Syringe 110 MG SC (10:57)
--- NOTE | 2024-06-12 12:46 | PCM.PN.ORT ---
Subjective Subjective Postop day 8 status post C3-T1 fusion with primary plastic coverage, now with pulmonary embolism and possibly septic shock, returning to ICU overnight. More responsive today. Says lower belly hurts. Denies neck pain. Collar well-fitting. Objective Data Objective Data Vital Signs: Vital Signs Temp Pulse Resp BP Pulse Ox O2 Del Method O2 Flow Rate 98.8 F 57 L 14 114/49 L 95 Nasal Cannula 4 06/12/24 11:00 06/12/24 12:00 06/12/24 12:00 06/12/24 12:00 06/12/24 12:00 06/12/24 12:00 06/12/24 12:00 FiO2 30 06/06/24 15:34 Oxygen Flow Rate (L/min) 4 Oxygen Delivery Method Nasal Cannula Weight: 234 lb 9.149 oz Body Mass Index (BMI) 36.7 Intake & Output: Intake and Output for Last 24 Hours 06/10/24 06/11/24 06/12/24 23:59 23:59 23:59 Intake Total 300 / 530 2627.42 / 2638.72 1426.13 / 1426.13 Output Total 654 / 1369 1779 / 2179 1505 / 1505 Balance -354 / -839 848.42 / 459.72 -78.87 / -78.87 Lab / Micro Data 06/12/24 05:45 06/12/24 05:45 Labs: Laboratory Results - last 24 hr 06/11/24 16:33: POC Glucose 169 H 06/11/24 20:43: POC Glucose 80 06/12/24 05:45: WBC 37.7 H*, RBC 3.89 L, Hgb 10.9 L, Hct 34.4 L, MCV 88.4, MCH 28.0, MCHC 31.7 L, RDW Std Deviation 45.9 H, RDW Coeff of Tyesha 14.3, Plt Count 247, MPV 11.8, Immature Gran % (Auto) 2.800 H, Neut % (Auto) 84.3 H, Lymph % (Auto) 4.5 L, [place] % (Auto) 8.2, Eos % (Auto) 0.0, Baso % (Auto) 0.2, Absolute Neuts (auto) 31.8 H, Absolute Lymphs (auto) 1.71, Nucleated RBC % 0, Differential Comment SCANNED, Diff Path Review October foll, Sodium 145, Potassium 4.0, Chloride 114 H, Carbon Dioxide 27.0, Anion Gap 4 L, BUN 88 H, Creatinine 2.27 H, Estim Creat Clear Calc 28.17, Est GFR (MDRD) Af Amer 36 L, Est GFR (MDRD) Non-Af 29 L, BUN/Creatinine Ratio 38.8 H, Glucose 54 L, Calcium 8.0 L 06/12/24 06:53: POC Glucose 59 L 06/12/24 07:15: POC Glucose 105 06/12/24 09:19: POC Glucose 123 H Micro: Microbiology 06/11/24 08:30 Urine Catheter - Catheter Urine Culture - Preliminary GNR lactose drug discovery informatics specialist Physical Exam Narrative Dressing with YEHUDA drains and incisional VAC, management plastic. Neurologic evaluation shows 5 x 5 power in all muscles in both upper and both lower extremities. Assessment & Plan Assessment/Plan (1) Status post cervical spinal fusion: PLAN: Plan Postop day status post C3-T1 fusion with primary plastic coverage, now complicated with pulmonary embolism and possibly septic shock. Was transferred to ICU overnight. Continue PT OT attempts as much as possible. Has Jeffrey for retention, and has UTI now. On Rocephin for it. On pressors for low blood pressure, possibly septic shock. Called and spoke with son on the phone. Updated him about current medical situation. Discussed with hospitalist. Will continue to follow.
[2024-06-12 13:56] LABS: Pathologist Review Reviewed
[2024-06-12 13:58] LABS: Pathologist Review Reviewed
--- NOTE | 2024-06-12 16:14 | CHAPLAIN ---
Type of Pastoral Visit ___ Initial Visit _x__ Follow-up Visit ___ On-call Visit ___ General Patient Visit ___ Spiritual Assessment ___ Family Conference ___ Bereavement ___ Rapid Response ___ Code Blue ___ Other (describe below) Pastoral Care Referral From ___ Patient _x__ Family ___ Nurse ___ Physician ___ Emblem Fuser Tender ___ Methodologist ___ Other (describe below) Sacrament/Intervention ___ Active listening ___ Anointing ___ Mosque ___ Bereavement ___ Communion ___ Ann exploration ___ ___ Life review _x__ Prayer ___ Reconciliation ___ Sacrament of Sick ___ Supportive presence ___ Wedding ___ Other (describe below) Pastoral Comments patient does not awaken or respond to his name; silent prayer given and left a calling card
[2024-06-12] MEDS: Insulin Lispro 100 UNIT/ML INSULN.PEN SC (20:53)
[2024-06-12 21:12] LABS: Bedside Glucose 155 mg/dL (74-106)
[2024-06-13] VITALS (16 sets, daily range): BP systolic 125–161; BP diastolic 55–79; PULSE 66–94; RESP 12–22; TEMP 36.6–37.1; O2SAT 90–97; BMI 35.5
--- NOTE | 2024-06-13 06:39 | PN.CC_ITS ---
Assessment & Plan Assessment/Plan (1) Acute hypoxemic respiratory failure: PLAN: Plan RECOMMENDATIONS: 1. If the patient remains hemodynamically stable over the next 24 hours, midodrine can be discontinued. 2. Continue antibiotics as ordered. 3. Continue therapeutic Lovenox. 4. Supplemental oxygen, if needed, to maintain saturations at or above 90%. 5. The patient is medically stable for transfer out of the intensive care unit. Will sign off from a critical care perspective. IMPRESSIONS: 1. Septic shock The patient developed sepsis due to probable gram-negative UTI with acute sepsis related organ dysfunction as evidenced by fluid refractory hypotension, necessitating vasopressor support. With supportive care, the patient was able to be weaned off of Levophed completely. He remains on scheduled midodrine, which can likely be discontinued in the next 24 hours, if he remains hemodynamically stable. 2. Acute hypoxemic respiratory failure secondary to bilateral pulmonary emboli The patient was noted to have bilateral pulmonary emboli on CTA with evidence of right heart strain. BNP and troponin were accordingly elevated. Continue supplemental oxygen, if needed. Continue therapeutic Lovenox. 3. Cervical spinal stenosis status post C3-C7 laminectomy with C3-T1 posterior spinal fusion Continue routine postoperative care per surgery services. 4. Recent history of CVA/obesity/hypertension/hyperlipidemia/hypothyroidism/coronary artery disease/neuropathy Complicates care, management, recovery and prognosis. Continue supportive measures as noted above. This note was generated with [employer] dictation software. It may contain incorrect words, spelling, and punctuation that were not noted in checking the note before signing. Subjective Subjective The patient was seen and examined at the bedside this morning. Events from the last 24 hours have been reviewed. The patient is currently afebrile, hemodynamically stable and maintaining appropriate oxygen saturations on room air. The patient was able to be weaned successfully off of Levophed yesterday evening. White blood cell count has improved to 26,000. Creatinine is improved at 1.73. The patient had no specific complaints this morning. Objective Data Objective Data The patient's most recent lab work, culture data and imaging studies have all been personally reviewed. Preliminary urine culture is demonstrating growth of a gram-negative xavi, lactose mexican food machine tender. Vital Signs: Vital Signs Temp Pulse Resp BP Pulse Ox O2 Del Method O2 Flow Rate 97.9 F 93 22 H 161/71 H 95 Nasal Cannula 3 06/13/24 04:00 12/12/24 06:00 06/13/24 06:00 06/13/24 06:00 06/13/24 06:00 06/13/24 06:00 06/13/24 06:00 FiO2 30 06/06/24 15:34 Oxygen Flow Rate (L/min) 3 Oxygen Delivery Method Nasal Cannula Weight: 227 lb 1.218 oz Body Mass Index (BMI) 35.5 Intake & Output: Intake and Output for Last 24 Hours 06/11/24 06/12/24 06/13/24 23:59 23:59 23:59 Intake Total 2627.42 / 2638.72 2441.03 / 2441.03 1000 / 1000 Output Total 1779 / 2179 2405 / 2405 1160 / 1160 Balance 848.42 / 459.72 36.03 / 36.03 -160 / -160 Lab / Micro Data Attestation: I reviewed the patient's lab results. 06/13/24 08:15 06/13/24 08:15 Labs: Laboratory Results - last 24 hr 06/11/24 07:03: Diff Path Review Reviewed 06/12/24 05:45: WBC 37.7 H*, Differential Comment SCANNED, Diff Path Review Reviewed 06/12/24 06:53: POC Glucose 59 L 06/12/24 07:15: POC Glucose 105 06/12/24 09:19: POC Glucose 123 H 06/12/24 20:50: POC Glucose 155 H Micro: Microbiology 06/11/24 08:30 Urine Catheter - Catheter Urine Culture - Preliminary GNR lactose mexican food machine tender ABG Data ABG results: ABG 06/05/24 06/05/24 11:41 16:35 Specimen Type ART ART Sample Site R Radial R Radial pH 7.34 L 7.38 Bicarbonate Actual 17.9 L 20.6 L Total CO2 19 22 Base Excess -8 L -5 L O2 Saturation 89 L 88 L O2 % 100.0 100.0 ABG pCO2 33.5 L 34.5 L ABG pO2 60 L 55 L Dustin Test Positive Positive O2 Delivery Device NRB BiPAP Vent Mode Not entered Not entered POC PEEP 10 Radiography Diagnostic Testing: Radiology Impression Chest X-Ray 06/11/24 08:07 IMPRESSION: Elevation of the right hemidiaphragm with increased markings at the lung bases worse at the right lung base suggestive of atelectasis and/or early infiltrates. Follow-up recommended. Electronically Signed: Ja Hernández MD at 9:03 EST , Physical Exam Const alert and no apparent distress Constitutional Narrative: Less talkative than previous General Appearance: ill appearing Positive for chronically HEENT normocephalic and head/scalp atraumatic Eyes EOMs intact bilaterally and conjunctivae normal Neck Neck Narrative: Rigid cervical collar in place. Chest inspection of chest normal Resp normal respiratory effort Auscultation: diminished lung sounds Cardio regular rate and regular rhythm GI normal to inspection, nondistended, normoactive bowel sounds Extremity no clubbing, cyanosis or edema Skin General Skin Exam: venous stasis and dermatitis Neuro CN's II-XII intact bilaterally and no focal motor deficits Psych Mood & Affect: flat affect Charges/Coding Visit Charges Inpatient E&M: 59100 Subs Hosp L3
[2024-06-13 08:29] LABS: Absolute Lymphocyte Count 1.58 X10^3/uL (0.83-4.51); Absolute Neutrophil Count 22.5 X10^3/uL (2.0-7.7); Basophil# 0.08 X10^3/uL; Basophil% 0.3 % (0-1); Eosinophil# 0.01 X10^3/uL; Hemoglobin 10.5 g/dL (13.0-16.5); Lymphocyte # 1.58 X10^3/ul (0.83-4.51); Mean Corp Hgb Conc 31.8 g/dL (32-36); Monocyte# 1.69 X10^3/uL; Monocyte% 6.4 % (0-10); NRBC Flagged by Analyzer 0 % (0-5); Neutrophil # 22.46 X10^3/uL (2.7-7.7); Neutrophil % 84.8 % (47-70); POSITIVE DIFFERENTIAL YES; Platelet Count 238 K/mm3 (150-450); RBC Distribution Width CV 14.4 % (11.6-14.6); RBC Distribution Width SD 45.9 fl (35.1-43.9); Red Blood Count 3.75 M/mm3 (4.6-6.2); White Blood Count 26.5 K/mm3 (4.4-11.0)
[2024-06-13 08:30] LABS: Differential Indicated SCAN CRITERIA MET
[2024-06-13 08:53] LABS: Anion Gap 11 (5-15); BUN 67 mg/dL (7-18); BUN/Creat Ratio 38.7 RATIO (10-20); Calcium,Total 8.3 mg/dL (8.5-10.1); Chloride 116 mmol/L (98-107); Creatinine, Serum 1.73 mg/dL (0.70-1.30); EST Glomerular Filtration Rate 40 mL/min (>60); Est Glom Filt Rate - Afr Amer 49 mL/min (>60); Estimated Creatinine Clearance 36.35 ml/min; Glucose 185 mg/dL (74-106); Potassium 4.4 mmol/L (3.5-5.1); Sodium Level 146 mmol/L (136-145)
[2024-06-13] MEDS: Insulin Lispro 100 UNIT/ML INSULN.PEN SC ×2 (09:02→21:32)
[2024-06-13] MEDS: Insulin Lispro 100 UNIT/ML INSULN.PEN 9 UNIT SC (09:02)
[2024-06-13] MEDS: Senna/Docusate Sodium 1 Tablet 2 TABLET PO ×2 (09:03→21:34)
[2024-06-13] MEDS: Enoxaparin 120 MG/0.8 ML Syringe 110 MG SC ×2 (09:03→21:33)
[2024-06-13] MEDS: Midodrine HCl 5 MG Tablet 10 MG PO (09:03)
[2024-06-13] MEDS: Ceftriaxone 1 GM/50 ML BAG IV (09:36)
--- NOTE | 2024-06-13 10:40 | PCM.PN.HOSP ---
Subjective Subjective Off of pressor support, doing well Objective Data Objective Data Vital Signs: Vital Signs Temp Pulse Resp BP Pulse Ox O2 Del Method O2 Flow Rate 98.3 F 91 16 139/69 H 92 Room Air 3 06/13/24 10:00 06/13/24 10:00 06/13/24 10:00 06/13/24 10:00 06/13/24 10:00 06/13/24 10:00 06/13/24 07:47 FiO2 30 06/06/24 15:34 Oxygen Flow Rate (L/min) 3 Oxygen Delivery Method Room Air Weight: 227 lb 1.218 oz Body Mass Index (BMI) 35.5 Intake & Output: Intake and Output for Last 24 Hours 06/12/24 06/13/24 06/14/24 03:59 03:59 03:59 Intake Total 2442.62 / 2453.92 2395.83 / 2395.83 1050 / 1050 Output Total 1464 / 1759 2004 1160 / 1160 Balance 978.62 / 694.92 390.83 / 390.83 -110 / -110 Lab / Micro Data 06/13/24 08:15 06/13/24 08:15 Labs: Laboratory Results - last 24 hr 06/11/24 07:03: Diff Path Review Reviewed 06/12/24 05:45: Diff Path Review Reviewed 06/12/24 20:50: POC Glucose 155 H 06/13/24 08:15: WBC 26.5 H, RBC 3.75 L, Hgb 10.5 L, Hct 33.0 L, MCV 88.0, MCH 28.0, MCHC 31.8 L, RDW Std Deviation 45.9 H, RDW Coeff of Tyesha 14.4, Plt Count 238, MPV 11.0, Immature Gran % (Auto) 2.500 H, Neut % (Auto) 84.8 H, Lymph % (Auto) 6.0 L, [place] % (Auto) 6.4, Eos % (Auto) 0.0, Baso % (Auto) 0.3, Absolute Neuts (auto) 22.5 H, Absolute Lymphs (auto) 1.58, Nucleated RBC % 0, Diff Path Review October, Sodium 146 H, Potassium 4.4, Chloride 116 H, Carbon Dioxide 18.0 L, Anion Gap 11, BUN 67 H, Creatinine 1.73 H, Estim Creat Clear Calc 36.35, Est GFR (MDRD) Af Amer 49 L, Est GFR (MDRD) Non-Af 40 L, BUN/Creatinine Ratio 38.7 H, Glucose 185 H, Calcium 8.3 L Micro: Microbiology 06/11/24 08:30 Urine Catheter - Catheter Urine Culture - Final Klebsiella oxytoca Physical Exam Narrative General: Alert, not very cooperative, seems apathetic, no apparent distress HEENT: Atraumatic, PERRLA, EOMI, Normocephalic Oral: Moist Mucosa Neck: Supple, No JVD Lungs: Diminished, Normal air movement, No rhonchi, No wheeze, No rales Cardiovascular: Regular rate, Regular Rhythm, Normal S1, Normal S2, No murmurs Abdomen: Soft, Non Tender, Non-Distended, No Hepato-splenomegaly Extremities: No edema, Capillary Refill Less than 3 Seconds Skin: No rashes, No breakdown, wound VAC in place, with drains with serosanguineous drainage Musculoskeletal: No Tenderness to Palpation of Joints or Extremities Neurological: No focal neurological deficits, moves all extremities Psych/Mental Status: Flat Assessment & Plan Assessment/Plan (1) Status post cervical spinal fusion: (2) Acute hypoxemic respiratory failure: PLAN: Plan 1. Acute hypoxic respiratory failure secondary to bilateral pulmonary emboli in the setting of a C3-T1 fusion on 06/04/2024/metabolic encephalopathy secondary to septic shock from a Klebsiella UTI/KELVIN ? Currently on therapeutic Lovenox when ready for discharge after dressing changes and wound VAC changes are complete can plan for Eliquis ?He has been on therapeutic anticoagulation since 06/05/2024 ? It is unclear how encephalopathic he is, his oxycodone was held secondary to confusion, though he does have an open wound that is being aggressively treated by plastic surgery ? Urine culture with sensitive Klebsiella, he did have a Jeffrey placed secondary to retention ? Continue with IV fluids, continue with Rocephin ? Pressors are off and appears to be stable for transfer out of ICU 2. Essential HTN/HLD ?Will hold blood pressure medication secondary to his UTI and hypotension ? Continue with his home cholesterol medications ? Will monitor make adjustments as necessary ? Echo on 06/06/2024 with an EF of 60% and a severely dilated right ventricle, this was done of the diagnosis of his PEs indicating right heart strain 3. DM2 ? Continue with insulin ? Accu-Cheks ACHS ? Will monitor make adjustments as necessary 4. Hypothyroidism ? Stable ? Continue with Synthroid DVT: Therapeutic Lovenox Charges/Coding Visit Charges Inpatient E&M: 55364 Subs Hosp L2
[2024-06-13 11:42] LABS: Bedside Glucose 139 mg/dL (74-106)
[2024-06-13 15:55] LABS: Pathologist Review Reviewed
[2024-06-13 16:04] LABS: Bedside Glucose 119 mg/dL (74-106)
[2024-06-13] MEDS: Insulin Glargine-YFGN 100 UNIT/ML Pen 27 UNIT SC (21:33)
[2024-06-13] MEDS: Atorvastatin Calcium 40 MG Tablet PO (21:33)
[2024-06-13] MEDS: Acetaminophen 500 MG Tablet 1000 MG PO (21:34)
[2024-06-13 21:59] LABS: Bedside Glucose 181 mg/dL (74-106)
[2024-06-14 03:21] VITALS: BP 148/66; PULSE 81; RESP 16; TEMP 36.7; O2SAT 94
[2024-06-14 04:42] VITALS: BMI 35.3
[2024-06-14] MEDS: Levothyroxine 75 MCG Tablet PO (05:24)
[2024-06-14] MEDS: Acetaminophen 500 MG Tablet 1000 MG PO (05:24)
[2024-06-14 06:15] LABS: Absolute Lymphocyte Count 1.31 X10^3/uL (0.83-4.51); Absolute Neutrophil Count 19.7 X10^3/uL (2.0-7.7); Basophil# 0.04 X10^3/uL; Basophil% 0.2 % (0-1); Hematocrit 33.3 % (40-54); Hemoglobin 10.3 g/dL (13.0-16.5); Lymphocyte # 1.31 X10^3/ul (0.83-4.51); Lymphocyte % 5.7 % (19-41); Mean Corp Hgb Conc 30.9 g/dL (32-36); Mean Corpuscular Hgb 27.5 pg (27.0-32.0); Mean Corpuscular Volume 88.8 fL (80-94); Mean Platelet Vol. 10.9 fl (6.2-12.0); Monocyte# 1.41 X10^3/uL; Monocyte% 6.1 % (0-10); NRBC Flagged by Analyzer 0 % (0-5); Neutrophil # 19.65 X10^3/uL (2.7-7.7); Neutrophil % 84.9 % (47-70); Platelet Count 298 K/mm3 (150-450); RBC Distribution Width CV 14.7 % (11.6-14.6); RBC Distribution Width SD 46.9 fl (35.1-43.9); Red Blood Count 3.75 M/mm3 (4.6-6.2); White Blood Count 23.1 K/mm3 (4.4-11.0)
[2024-06-14 06:47] LABS: Anion Gap 15 (5-15); BUN 61 mg/dL (7-18); BUN/Creat Ratio 33.3 RATIO (10-20); Calcium,Total 8.6 mg/dL (8.5-10.1); Chloride 118 mmol/L (98-107); Creatinine, Serum 1.83 mg/dL (0.70-1.30); EST Glomerular Filtration Rate 38 mL/min (>60); Est Glom Filt Rate - Afr Amer 46 mL/min (>60); Estimated Creatinine Clearance 34.25 ml/min; Glucose 223 mg/dL (74-106); Potassium 4.7 mmol/L (3.5-5.1); Sodium Level 148 mmol/L (136-145)
[2024-06-14 07:21] VITALS: O2SAT 90
[2024-06-14] MEDS: Insulin Lispro 100 UNIT/ML INSULN.PEN SC ×4 (08:00→21:29)
[2024-06-14] MEDS: Insulin Lispro 100 UNIT/ML INSULN.PEN 9 UNIT SC ×3 (08:01→16:12)
[2024-06-14] MEDS: 0.9% Saline Lock 10 ML Syringe IV (08:03)
[2024-06-14] MEDS: Senna/Docusate Sodium 1 Tablet 2 TABLET PO (08:03)
[2024-06-14] MEDS: Dextrose 5%-Water (1000mL Bag) 1,000 ML 75 ML IV ×2 (08:03→21:39)
[2024-06-14] MEDS: Enoxaparin 120 MG/0.8 ML Syringe 110 MG SC ×2 (08:04→21:25)
[2024-06-14] MEDS: Midodrine HCl 5 MG Tablet 10 MG PO ×2 (08:05→11:09)
[2024-06-14 08:11] LABS: Bedside Glucose 203 mg/dL (74-106)
[2024-06-14 09:00] VITALS: BP 132/63; PULSE 75; RESP 15; TEMP 36.6; O2SAT 97
--- NOTE | 2024-06-14 10:26 | PCM.PN.HOSP ---
Subjective Subjective No issues overnight, still not communicating very well Objective Data Objective Data Vital Signs: Vital Signs Temp Pulse Resp BP Pulse Ox O2 Del Method O2 Flow Rate 97.8 F 75 15 132/63 H 97 Room Air 3 06/14/24 09:00 06/14/24 09:00 06/14/24 09:00 06/14/24 09:00 06/14/24 09:00 06/14/24 09:00 06/13/24 07:47 FiO2 30 06/06/24 15:34 Oxygen Flow Rate (L/min) 3 Oxygen Delivery Method Room Air Weight: 225 lb 8.526 oz Body Mass Index (BMI) 35.3 Intake & Output: Intake and Output for Last 24 Hours 06/13/24 06/14/24 06/15/24 03:59 03:59 03:59 Intake Total 2395.83 / 2395.83 1050 / 1050 Output Total 2004 3410 / 3410 900 / 900 Balance 390.83 / 390.83 -2360 / -2360 -900 / -900 Lab / Micro Data 06/14/24 05:55 06/14/24 05:55 Labs: Laboratory Results - last 24 hr 06/13/24 08:15: Diff Path Review Reviewed 06/13/24 11:12: POC Glucose 139 H 06/13/24 15:44: POC Glucose 119 H 06/13/24 21:24: POC Glucose 181 H 06/14/24 05:55: WBC 23.1 H, RBC 3.75 L, Hgb 10.3 L, Hct 33.3 L, MCV 88.8, MCH 27.5, MCHC 30.9 L, RDW Std Deviation 46.9 H, RDW Coeff of Tyesha 14.7 H, Plt Count 298, MPV 10.9, Immature Gran % (Auto) 3.100 H, Neut % (Auto) 84.9 H, Lymph % (Auto) 5.7 L, [place] % (Auto) 6.1, Eos % (Auto) 0.0, Baso % (Auto) 0.2, Absolute Neuts (auto) 19.7 H, Absolute Lymphs (auto) 1.31, Nucleated RBC % 0, Sodium 148 H, Potassium 4.7, Chloride 118 H, Carbon Dioxide 15.0 L, Anion Gap 15, BUN 61 H, Creatinine 1.83 H, Estim Creat Clear Calc 34.25, Est GFR (MDRD) Af Amer 46 L, Est GFR (MDRD) Non-Af 38 L, BUN/Creatinine Ratio 33.3 H, Glucose 223 H, Calcium 8.6 06/14/24 07:54: POC Glucose 203 H Micro: Microbiology 06/12/24 08:30 Blood Culture (Wb) - Anticubital Right Blood Culture - Preliminary No growth in 48 hours. 06/11/24 08:30 Urine Catheter - Catheter Urine Culture - Final Klebsiella oxytoca Physical Exam Narrative General: Alert, not very cooperative, seems apathetic, no apparent distress HEENT: Atraumatic, PERRLA, EOMI, Normocephalic Oral: Moist Mucosa Neck: Supple, No JVD Lungs: Diminished, Normal air movement, No rhonchi, No wheeze, No rales Cardiovascular: Regular rate, Regular Rhythm, Normal S1, Normal S2, No murmurs Abdomen: Soft, Non Tender, Non-Distended, No Hepato-splenomegaly Extremities: No edema, Capillary Refill Less than 3 Seconds Skin: No rashes, No breakdown, wound VAC in place, with drains with serosanguineous drainage Musculoskeletal: No Tenderness to Palpation of Joints or Extremities Neurological: No focal neurological deficits, moves all extremities Psych/Mental Status: Flat Assessment & Plan Assessment/Plan (1) Status post cervical spinal fusion: (2) Acute hypoxemic respiratory failure: PLAN: Plan 1. Acute hypoxic respiratory failure secondary to bilateral pulmonary emboli in the setting of a C3-T1 fusion on 06/04/2024/metabolic encephalopathy secondary to septic shock from a Klebsiella UTI/KELVIN ? Currently on therapeutic Lovenox when ready for discharge after dressing changes and wound VAC changes are complete can plan for Eliquis ?He has been on therapeutic anticoagulation since 06/05/2024 ? It is unclear how encephalopathic he is, his oxycodone was held secondary to confusion, though he does have an open wound that is being aggressively treated by plastic surgery ? Urine culture with sensitive Klebsiella, he did have a Jeffrey placed secondary to retention ?Will change him to D5W given his sodium of 148 and a slight rise in his creatinine, continue with Rocephin for 7 days total given severity of infection ? Will consult speech therapy for evaluation 2. Essential HTN/HLD ?Will hold blood pressure medication secondary to his UTI and hypotension ? Continue with his home cholesterol medications ? Will monitor make adjustments as necessary ? Echo on 06/06/2024 with an EF of 60% and a severely dilated right ventricle, this was done of the diagnosis of his PEs indicating right heart strain 3. DM2 ? Continue with insulin ? Accu-Cheks ACHS ? Will monitor make adjustments as necessary 4. Hypothyroidism ? Stable ? Continue with Synthroid DVT: Therapeutic Lovenox Charges/Coding Visit Charges Inpatient E&M: 48651 Subs Hosp L2
[2024-06-14] MEDS: Ceftriaxone 1 GM/50 ML BAG IV (10:55)
[2024-06-14 11:02] LABS: Magnesium 2.9 mg/dL (1.6-2.6); Phosphorus 3.8 mg/dL (2.5-4.9)
[2024-06-14 11:22] LABS: Bedside Glucose 206 mg/dL (74-106)
--- NOTE | 2024-06-14 11:50 | PN_ITS ---
Progress Note Patient alert and oriented to person/place/event today. He's been transferred to the transitional care unit (was in ICU for UTI) and is improving overall. Pain controlled. Physical Exam Narrative NECK: Incisional VAC removed and incision intact, some development of bruising, but no firm fluid collections (no appreciable hematoma felt at this time). Slight dehiscence (skin edges are not approximated well) in the middle of the incision. Drains are SS (minimal output from deep drain, so removed on rounds today). VAC replaced over incision. Const alert and oriented x3 Resp normal respiratory effort Cardio regular rate Extremity Extremity Narrative: Extremities: 5/5 evaluation analyst strength on hands. SCDs are on and activated. No swelling in the lower extremity. Assessment & Plan Assessment/Plan (1) Status post cervical spinal fusion: (2) Cervical myelopathy: PLAN: S/p muscle flap closure for cervical spine wound (over fusion) on 04 Jun 2024 No bleeding since blood thinner started for PE (post op day 1 diagnosis). No signs of hematoma right now (just some bruising, but no firm areas of blood clots at drain site. Drains were stripping well). POST-OPERATIVE PLAN * Plan to keep incisional wound VAC until Monday, 21 June 2024, at which time we will look at the incision and then replaced the incisional wound VAC (anticipate 3 weeks of incisional wound VAC). * Continue drain care with every 4 hour emptying and stripping of the existing drain. * Will consider removal of the other drain soon since pretty consistent <30 cc output * Head of bed greater than 45 degrees to pressure offload the incision. * Plan for arms at sides and no extreme shoulder abduction/extreme flexion of arms. * Plastics will follow. Procedures Integumentary [id number]: 01500 Global Visit
--- NOTE | 2024-06-14 12:05 | WOUNDNOTE ---
wound photo: mid upper back/neck
[2024-06-14 15:00] VITALS: BP 118/60; PULSE 86; RESP 13; TEMP 36.6; O2SAT 97
--- NOTE | 2024-06-14 15:40 | PN.ORTHO_ITS ---
Subjective Subjective Postop day 10 status post C3-T1 fusion with plastic closure, now in PCU with complications of PE and UTI. Still significantly somnolent and difficult to wake up. Did not follow commands with me today. Reviewed plastic surgery notes. VAC changed. 1 drain is out. Objective Data Objective Data Vital Signs: Vital Signs Temp Pulse Resp BP Pulse Ox O2 Del Method O2 Flow Rate 97.8 F 86 13 118/60 97 Room Air 3 06/14/24 15:00 06/14/24 15:00 06/14/24 15:00 06/14/24 15:00 06/14/24 15:00 06/14/24 15:00 06/13/24 07:47 FiO2 30 06/06/24 15:34 Oxygen Flow Rate (L/min) 3 Oxygen Delivery Method Room Air Weight: 225 lb 8.526 oz Body Mass Index (BMI) 35.3 Intake & Output: Intake and Output for Last 24 Hours 06/12/24 06/13/24 06/14/24 23:59 23:59 23:59 Intake Total 2441.03 / 2441.03 1050 / 1050 50 / 50 Output Total 2405 / 2405 2510 / 3410 2650 / 2650 Balance 36.03 / 36.03 -1460 / -2360 -2600 / -2600 Lab / Micro Data 06/14/24 05:55 06/14/24 05:55 Labs: Laboratory Results - last 24 hr 06/13/24 08:15: Diff Path Review Reviewed 06/13/24 15:44: POC Glucose 119 H 06/13/24 21:24: POC Glucose 181 H 06/14/24 05:55: WBC 23.1 H, RBC 3.75 L, Hgb 10.3 L, Hct 33.3 L, MCV 88.8, MCH 27.5, MCHC 30.9 L, RDW Std Deviation 46.9 H, RDW Coeff of Tyesha 14.7 H, Plt Count 298, MPV 10.9, Immature Gran % (Auto) 3.100 H, Neut % (Auto) 84.9 H, Lymph % (Auto) 5.7 L, [place] % (Auto) 6.1, Eos % (Auto) 0.0, Baso % (Auto) 0.2, Absolute Neuts (auto) 19.7 H, Absolute Lymphs (auto) 1.31, Nucleated RBC % 0, Sodium 148 H, Potassium 4.7, Chloride 118 H, Carbon Dioxide 15.0 L, Anion Gap 15, BUN 61 H, Creatinine 1.83 H, Estim Creat Clear Calc 34.25, Est GFR (MDRD) Af Amer 46 L, E st GFR (MDRD) Non-Af 38 L, BUN/Creatinine Ratio 33.3 H, Glucose 223 H, Calcium 8.6, Phosphorus 3.8, Magnesium 2.9 H 06/14/24 07:54: POC Glucose 203 H 06/14/24 11:02: POC Glucose 206 H Micro: Microbiology 06/12/24 08:30 Blood Culture (Wb) - Anticubital Right Blood Culture - Preliminary No growth in 48 hours. 06/11/24 08:30 Urine Catheter - Catheter Urine Culture - Final Klebsiella oxytoca Physical Exam Narrative Dressing?see plastic note. Neuroexam difficult to perform today due to somnolence. Assessment & Plan Assessment/Plan (1) Status post cervical spinal fusion: PLAN: Plan Postop day 10 status post C3-T1 fusion with plastic coverage. Reviewed plastic surgery note. Picture of wound. 1 drain is out. VAC changed. Unclear why patient is still significantly sedated although all sedative medications have been off. Continues to be on antibiotics for UTI. Blood cultures no growth. Appreciate medicine and plastics management. Will continue to follow
[2024-06-14 16:33] LABS: Bedside Glucose 175 mg/dL (74-106)
[2024-06-14] MEDS: Insulin Glargine-YFGN 100 UNIT/ML Pen 27 UNIT SC (21:29)
[2024-06-14 22:00] VITALS: BP 131/56; PULSE 90; RESP 18; TEMP 36; O2SAT 94
[2024-06-15] VITALS (12 sets, daily range): BP systolic 105–138; BP diastolic 51–64; PULSE 73–99; RESP 17–20; TEMP 35.6–36.8; O2SAT 92–96; BMI 35.3
[2024-06-15 00:29] LABS: Bedside Glucose 170 mg/dL (74-106)
[2024-06-15] MEDS: Insulin Lispro 100 UNIT/ML INSULN.PEN SC ×3 (06:41→20:41)
[2024-06-15 07:03] LABS: Absolute Lymphocyte Count 1.48 X10^3/uL (0.83-4.51); Absolute Neutrophil Count 15.9 X10^3/uL (2.0-7.7); Basophil# 0.03 X10^3/uL; Basophil% 0.2 % (0-1); Eosinophil# 0.07 X10^3/uL; Eosinophils% 0.4 % (0-5); Hematocrit 30.8 % (40-54); Hemoglobin 9.6 g/dL (13.0-16.5); Lymphocyte # 1.48 X10^3/ul (0.83-4.51); Lymphocyte % 7.5 % (19-41); Mean Corp Hgb Conc 31.2 g/dL (32-36); Mean Corpuscular Hgb 27.4 pg (27.0-32.0); Mean Corpuscular Volume 87.7 fL (80-94); Mean Platelet Vol. 10.7 fl (6.2-12.0); Monocyte# 1.74 X10^3/uL; Monocyte% 8.9 % (0-10); NRBC Flagged by Analyzer 0 % (0-5); Neutrophil # 15.89 X10^3/uL (2.7-7.7); Neutrophil % 80.8 % (47-70); POSITIVE DIFFERENTIAL YES; Platelet Count 296 K/mm3 (150-450); RBC Distribution Width CV 14.9 % (11.6-14.6); RBC Distribution Width SD 47.1 fl (35.1-43.9); Red Blood Count 3.51 M/mm3 (4.6-6.2); White Blood Count 19.7 K/mm3 (4.4-11.0)
[2024-06-15 07:07] LABS: Bedside Glucose 198 mg/dL (74-106)
[2024-06-15 07:08] LABS: Differential Indicated SCAN CRITERIA MET
[2024-06-15 07:32] LABS: Anion Gap 5 (5-15); BUN 61 mg/dL (7-18); BUN/Creat Ratio 32.3 RATIO (10-20); Calcium,Total 8.4 mg/dL (8.5-10.1); Chloride 119 mmol/L (98-107); Creatinine, Serum 1.89 mg/dL (0.70-1.30); EST Glomerular Filtration Rate 36 mL/min (>60); Est Glom Filt Rate - Afr Amer 44 mL/min (>60); Estimated Creatinine Clearance 33.16 ml/min; Glucose 203 mg/dL (74-106); Potassium 3.9 mmol/L (3.5-5.1); Sodium Level 148 mmol/L (136-145)
[2024-06-15] MEDS: Insulin Lispro 100 UNIT/ML INSULN.PEN 9 UNIT SC ×2 (08:10→11:13)
[2024-06-15 08:37] LABS: Bedside Glucose 195 mg/dL (74-106)
[2024-06-15] MEDS: Ceftriaxone 1 GM/50 ML BAG IV (09:58)
[2024-06-15] MEDS: Enoxaparin 120 MG/0.8 ML Syringe 110 MG SC (10:01)
[2024-06-15] MEDS: Dextrose 5%-Water (1000mL Bag) 1,000 ML 75 ML IV (11:11)
--- NOTE | 2024-06-15 11:19 | NURSING ---
Nursing in room when Dr Hernandez Assessed pt. she informed of his lethergy, npo, not giving po meds. He said his head can be lowered to change and reposition him as long as he has the brace on.
--- NOTE | 2024-06-15 11:37 | PCM.PN.ORT ---
Subjective Subjective Postop day 11 status post C3-T1 fusion with plastic surgery coverage, with complications of PE and UTI. Patient still continues to not be fully responsive. I was able to have him move all 4 extremities. He denies any neck pain. He is not able to keep his eyes open for conversation. He is n.p.o. because he cannot swallow. Discussed with nurse who mentions there may be black stools likely from heparin use. Objective Data Objective Data Vital Signs: Vital Signs Temp Pulse Resp BP Pulse Ox O2 Del Method O2 Flow Rate 98.3 F 86 20 H 120/51 L 95 Room Air 3 06/15/24 10:23 06/15/24 10:23 06/15/24 10:23 06/15/24 10:23 06/15/24 10:23 06/15/24 10:23 06/13/24 07:47 FiO2 30 06/06/24 15:34 Oxygen Flow Rate (L/min) 3 Oxygen Delivery Method Room Air Weight: 225 lb 8.526 oz Body Mass Index (BMI) 35.3 Intake & Output: Intake and Output for Last 24 Hours 06/13/24 06/14/24 06/15/24 23:59 23:59 23:59 Intake Total 1050 / 1050 1050 / 1050 1050 / 1050 Output Total 2510 / 3410 3260 / 3260 50 / 50 Balance -1460 / -2360 -2210 / -2210 1000 / 1000 Lab / Micro Data 06/15/24 06:39 06/15/24 06:39 Labs: Laboratory Results - last 24 hr 06/14/24 16:11: POC Glucose 175 H 06/14/24 21:13: POC Glucose 170 H 06/15/24 06:39: WBC 19.7 H, RBC 3.51 L, Hgb 9.6 L, Hct 30.8 L, MCV 87.7, MCH 27.4, MCHC 31.2 L, RDW Std Deviation 47.1 H, RDW Coeff of Tyesha 14.9 H, Plt Count 296, MPV 10.7, Immature Gran % (Auto) 2.200 H, Neut % (Auto) 80.8 H, Lymph % (Auto) 7.5 L, [place] % (Auto) 8.9, Eos % (Auto) 0.4, Baso % (Auto) 0.2, Absolute Neuts (auto) 15.9 H, Absolute Lymphs (auto) 1.48, Nucleated RBC % 0, Diff Path Review October foll, Sodium 148 H, Potassium 3.9, Chloride 119 H, Carbon Dioxide 24.0, Anion Gap 5, BUN 61 H, Creatinine 1.89 H, Estim Creat Clear Calc 33.16, Est GFR (MDRD) Af Amer 44 L, Est GFR (MDRD) Non-Af 36 L, BUN/Creatinine Ratio 32.3 H, Glucose 203 H, Calcium 8.4 L 06/15/24 06:40: POC Glucose 198 H 06/15/24 07:44: POC Glucose 195 H Micro: Microbiology 06/12/24 08:30 Blood Culture (Wb) - Anticubital Right Blood Culture - Preliminary No growth in 48 hours. 06/11/24 08:30 Urine Catheter - Catheter Urine Culture - Final Klebsiella oxytoca Physical Exam Narrative Dressing CDI, 1 drain and wound VAC present, managed by plastic surgery and wound care. Neuroexam difficult to assess but moves all 4 extremities actively. Assessment & Plan Assessment/Plan (1) Status post cervical spinal fusion: PLAN: Plan Postop day 11 status post C3-T1 fusion. Patient has been n.p.o. for 2 to 3 days now, may need some form of enteral or parenteral nutrition at some point. UTI being managed by Rocephin. Seems hemodynamically stable, maintaining saturation of oxygen on room air. Unclear as to why he is not responsive, he is not on any sedatives. Appreciate medicine, plastic surgery comanagement. Will continue to follow.
[2024-06-15 11:41] LABS: Bedside Glucose 175 mg/dL (74-106)
[2024-06-15] MEDS: Pantoprazole Sodium 40 MG in 0.9% Normal Saline (100mL MB+) 100 ML 330 MG IV ×2 (11:44→20:36)
--- NOTE | 2024-06-15 11:46 | PCM.PN.HOSP ---
Reason for Visit Reason for Visit: Diagnoses Hypothyroidism, unspecified (06/04/24) Type 2 diabetes mellitus with hyperglycemia (06/04/24) Obesity, unspecified (06/04/24) Hyperlipidemia, unspecified (06/04/24) Other specified diseases of spinal cord (06/04/24) Disease of spinal cord, unspecified (06/04/24) Essential (primary) hypertension (06/04/24) Cerebral infarction, unspecified (06/04/24) Acute respiratory failure with hypoxia (06/04/24) Unspecified osteoarthritis, unspecified site (06/04/24) Arthrodesis status (06/04/24) Subjective Subjective Saw patient at bedside this morning. Patient was somnolent and very fatigued appearing. He did open his eyes on command and when asked if he had any pain he did nod slowly. When asked if pain was in his neck he again nodded. He was not able to answer any questions for me. He also was not able to squeeze my hand with either hands. Objective Data Objective Data Vital Signs: Vital Signs Temp Pulse Resp BP Pulse Ox O2 Del Method O2 Flow Rate 98.3 F 86 20 H 120/51 L 95 Room Air 3 06/15/24 10:23 06/15/24 10:23 06/15/24 10:23 06/15/24 10:23 06/15/24 10:23 06/15/24 10:23 06/13/24 07:47 FiO2 30 06/06/24 15:34 Oxygen Flow Rate (L/min) 3 Oxygen Delivery Method Room Air Weight: 102.3 kg Body Mass Index (BMI) 35.3 Intake & Output: Intake and Output for Last 24 Hours 06/13/24 06/14/24 06/15/24 23:59 23:59 23:59 Intake Total 1050 / 1050 1050 / 1050 1050 / 1050 Output Total 2510 / 3410 3260 / 3260 50 / 50 Balance -1460 / -2360 -2210 / -2210 1000 / 1000 Lab / Micro Data 06/15/24 06:39 06/15/24 06:39 Labs: Laboratory Results - last 24 hr 06/14/24 16:11: POC Glucose 175 H 06/14/24 21:13: POC Glucose 170 H 06/15/24 06:39: WBC 19.7 H, RBC 3.51 L, Hgb 9.6 L, Hct 30.8 L, MCV 87.7, MCH 27.4, MCHC 31.2 L, RDW Std Deviation 47.1 H, RDW Coeff of Tyesha 14.9 H, Plt Count 296, MPV 10.7, Immature Gran % (Auto) 2.200 H, Neut % (Auto) 80.8 H, Lymph % (Auto) 7.5 L, [place] % (Auto) 8.9, Eos % (Auto) 0.4, Baso % (Auto) 0.2, Absolute Neuts (auto) 15.9 H, Absolute Lymphs (auto) 1.48, Nucleated RBC % 0, Diff Path Review October, Sodium 148 H, Potassium 3.9, Chloride 119 H, Carbon Dioxide 24.0, Anion Gap 5, BUN 61 H, Creatinine 1.89 H, Estim Creat Clear Calc 33.16, Est GFR (MDRD) Af Amer 44 L, Est GFR (MDRD) Non-Af 36 L, BUN/Creatinine Ratio 32.3 H, Glucose 203 H, Calcium 8.4 L 06/15/24 06:40: POC Glucose 198 H 06/15/24 07:44: POC Glucose 195 H 06/15/24 11:09: POC Glucose 175 H Micro: Microbiology 06/12/24 08:30 Blood Culture (Wb) - Anticubital Right Blood Culture - Preliminary No growth in 48 hours. 06/11/24 08:30 Urine Catheter - Catheter Urine Culture - Final Klebsiella oxytoca Physical Exam Const Constitutional Narrative: Elderly male, somnolent and very fatigued appearing, laying back in bed with neck brace in place, opening eyes on command and nodding yes or no to questions but not able to verbalize anything. Orientation / Consciousness: lethargic HEENT normocephalic, head/scalp atraumatic, hearing grossly normal bilaterally and nasal mucous membranes and turbinates normal Eyes PERRL, EOMs intact bilaterally and conjunctivae normal Neck Neck Narrative: Neck brace in place. Wound VAC in place with serosanguineous drainage noted. Lymph Lymphatic: no lymphadenopathy noted Chest inspection of chest normal Resp normal respiratory effort, no use of accessory muscles and clear to auscultation bilaterally Cardio regular rate, regular rhythm, no murmurs and peripheral pulses 2+ throughout GI normal to inspection, nondistended, normoactive bowel sounds, soft to palpation, non-tender and non-distended Extremity normal to inspection and no pedal edema Assessment & Plan Assessment/Plan (1) Acute hypoxemic respiratory failure: (2) Status post cervical spinal fusion: PLAN: Plan Patient is an 83-year-old male who presented to [facility] ED on 06/04/2024 from the TCU for planned cervical spine procedure. Hospital course complicated by bilateral pulmonary emboli with right heart strain, sepsis secondary to Klebsiella UTI, KELVIN and metabolic encephalopathy. 1. Acute hypoxic respiratory failure secondary to bilateral pulmonary emboli with right heart strain, improving ? Air Pollution Compliance Inspector followed. Had postoperative acute respiratory failure on 06/05 requiring transfer to the ICU. CTA chest showed bilateral PE with right heart strain. Echo 06/06 showed EF 60%, severely dilated RV, moderately decreased RV systolic function. Continue treatment with therapeutic Lovenox, plan is to transition to Eliquis once wound VAC changes are complete on 06/21. Weaned back to room air at rest. Continue to monitor. 2. 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 Orthopedic surgery and plastic surgery following. Wound VAC in place with serosanguineous drainage noted. Cervical collar in place. Continue management per specialists. 3. Acute metabolic encephalopathy ? Unclear etiology. Patient is able to open eyes and nod yes or no to questions but remains very lethargic. Has not had any nutrition for 2 days. Has not received any sedative medications for the last 2 days with minimal improvement. Continue to monitor closely. N.p.o. status. If no improvement by Monday, will plan to initiate supplemental feeding. 4. Sepsis secondary to Klebsiella UTI ? Urine culture 06/11 grew greater than 100,000 Klebsiella. Blood cultures with no growth. Blood pressure improved with IV fluid resuscitation. Continue IV ceftriaxone for 7-day course total, stop date 06/17. 5. KELVIN ? Baseline creatinine appears to be around 1.2. Creatinine worsened post procedure likely due to hypotension in setting of bilateral PE and UTI. Peak of 2.49 on 06/11. Now stable around 1.7-1.8. Adequate urine output. Continue to monitor daily BMP and urine output. 6. Anemia ? Hemoglobin slowly down trended during hospitalization suspect in part due to lab draws. Patient reportedly had 1 black stool on 06/15, notably is on therapeutic Lovenox for PE. Most recent hemoglobin 9.6 on 06/15. Continue to monitor CBC daily. Will start IV PPI twice daily for now. 7. Hypernatremia ? Suspect due to poor p.o. intake. Most recent sodium 148 on 06/15. Continue maintenance D5W while n.p.o. status. 8. Urinary retention ? Had Jeffrey catheter placed early in hospitalization due to retention. Continue Jeffrey at this time. Chronic medical conditions: ? Class II obesity: BMI 35 on admit. Complicates hospital course, care and prognosis. ? Type 2 diabetes mellitus: Continue reduced regimen from home of Lantus 20 units at night with sliding scale insulin. Patient currently n.p.o., only receiving Lantus. Adjust regimen as needed. ? Hypertension: Holding home atenolol, losartan and Jardiance. ? Hyperlipidemia: Continue home statin. ? Hypothyroidism: Continue Synthroid. DVT prophylaxis: Not indicated, on therapeutic Lovenox CODE STATUS: DNR CCA, DNI Expected disposition: TBD Total clinical time spent by myself addressing the patient's medical issues, reviewing all the data, and collaborating with patient's care team: 35 minutes. Charges/Coding Visit Charges Inpatient E&M: 48981 Subs Hosp L2
--- NOTE | 2024-06-15 13:21 | NURSING ---
1046 Dr Prater notified pt is lethargic, rt side weaker than left, had dark stool this am. He made some med changes. ,
[2024-06-15 16:18] LABS: Bedside Glucose 131 mg/dL (74-106)
--- NOTE | 2024-06-15 17:59 | NURSING ---
Nurse stripped tubing at 0800, 1300, 1630, at 1300 it had a long clot in the bulb.
[2024-06-15] MEDS: Enoxaparin 100 MG/ML Syringe SC (20:38)
[2024-06-15] MEDS: Insulin Glargine-YFGN 100 UNIT/ML Pen 20 UNIT SC (20:41)
[2024-06-15 21:33] LABS: Bedside Glucose 191 mg/dL (74-106)
[2024-06-16] VITALS (8 sets, daily range): BP systolic 105–128; BP diastolic 47–70; PULSE 60–97; RESP 16–18; TEMP 36.2–36.5; O2SAT 89–100; BMI 34.8
[2024-06-16] MEDS: Dextrose 5%-Water (500mL Bag) 500 ML 75 ML IV ×4 (02:42→23:57)
[2024-06-16 06:32] LABS: Bedside Glucose 218 mg/dL (74-106)
[2024-06-16 06:35] LABS: Hematocrit 29.4 % (40-54); Hemoglobin 9.1 g/dL (13.0-16.5); Mean Corpuscular Hgb 27.7 pg (27.0-32.0); Mean Corpuscular Volume 89.6 fL (80-94); Platelet Count 295 K/mm3 (150-450); RBC Distribution Width CV 14.9 % (11.6-14.6); RBC Distribution Width SD 48.2 fl (35.1-43.9); Red Blood Count 3.28 M/mm3 (4.6-6.2)
[2024-06-16 07:00] LABS: Anion Gap 7 (5-15); BUN 55 mg/dL (7-18); BUN/Creat Ratio 29.4 RATIO (10-20); Calcium,Total 8.4 mg/dL (8.5-10.1); Chloride 117 mmol/L (98-107); Creatinine, Serum 1.87 mg/dL (0.70-1.30); EST Glomerular Filtration Rate 37 mL/min (>60); Est Glom Filt Rate - Afr Amer 44 mL/min (>60); Estimated Creatinine Clearance 33.28 ml/min; Glucose 254 mg/dL (74-106); Potassium 3.8 mmol/L (3.5-5.1); Sodium Level 146 mmol/L (136-145)
[2024-06-16] MEDS: Pantoprazole Sodium 40 MG in 0.9% Normal Saline (100mL MB+) 100 ML 330 MG IV ×2 (09:42→20:57)
[2024-06-16] MEDS: Ceftriaxone 1 GM/50 ML BAG IV (09:42)
[2024-06-16] MEDS: Enoxaparin 100 MG/ML Syringe SC ×2 (09:43→20:56)
--- NOTE | 2024-06-16 11:09 | PN.HOSP_ITS ---
Reason for Visit Reason for Visit: Diagnoses Hypothyroidism, unspecified (06/04/24) Type 2 diabetes mellitus with hyperglycemia (06/04/24) Obesity, unspecified (06/04/24) Hyperlipidemia, unspecified (06/04/24) Other specified diseases of spinal cord (06/04/24) Disease of spinal cord, unspecified (06/04/24) Essential (primary) hypertension (06/04/24) Cerebral infarction, unspecified (06/04/24) Acute respiratory failure with hypoxia (06/04/24) Unspecified osteoarthritis, unspecified site (06/04/24) Arthrodesis status (06/04/24) Subjective Subjective Saw patient at bedside this morning. Patient appeared slightly more awake today than yesterday. Was able to shake his head no when asked if he was in any pain. Did nod yes when he was asked if he was hungry. Still remains very weak and essentially unable to move. No other new concerns today. Objective Data Objective Data Vital Signs: Vital Signs Temp Pulse Resp BP Pulse Ox O2 Del Method O2 Flow Rate 97.1 F L 60 18 116/47 L 93 Room Air 3 06/16/24 08:30 06/16/24 08:30 06/16/24 08:30 06/16/24 08:30 06/16/24 08:30 06/16/24 08:30 06/13/24 07:47 FiO2 30 06/06/24 15:34 Oxygen Flow Rate (L/min) 3 Oxygen Delivery Method Room Air Weight: 100.9 kg Body Mass Index (BMI) 34.8 Intake & Output: Intake and Output for Last 24 Hours 06/14/24 06/15/24 06/16/24 23:59 23:59 23:59 Intake Total 1050 / 1050 1994 935 / 935 Output Total 3260 / 3260 955 / 955 315 / 315 Balance -2210 / -2210 1040 / 1040 620 / 620 Medical Nutrition Assessment Dietitian: Malnutrition Criteria Met Start: 06/16/24 10:42 Freq: Status: Active Protocol: Document 06/16/24 10:43 SB (Rec: 06/16/24 10:43 SB [id number]) Nutrition Malnutrition Evidence of Malnutrition Exists Yes Malnutrition (severe): Acute Illness/Injury Evidenced By Suboptimal Energy Intake ( Severe),Weight Loss (Severe) Intake Problem Inadequate Oral Intake Etiology related to mental status Signs/Symptoms as evidenced by NPO status. Status Active Problem Clinical Problem Acute Disease or Injury Related Malnutrition Etiology severe related to inadequate oral intake Signs/Symptoms as evidenced by PO meeting <50 % of estimated nutrition needs x 1 week, 7% unintentional weight loss x 2 weeks, and 2+ pitting edema in L arm. Status Active Problem Altered Nutrient-Related Laboratory Values Etiology related to endocrine dysfunction/diabetes Signs/Symptoms as evidenced by A1C 11% and glucose 254 Status Active Problem Recommendation Dietitian Recommendations/Changes Recommend advanced diet as tolerated to liberal regular diet d/t signs and symptoms of malnutrition, per SODA FLAKER consistency/texture recommendations. Will d/c glucerna shake d/t NPO. Recommend initiating nutrition support in 24-48 hours if pt is still NPO. If nutrition support is initiated recommend Jevity 1. 5Cal goal rate 50ml/hr with 130ml flushes every 4 hours to provide 1800 calories, 76g protein, and 1692ml total fluid/day. Wound start at 10ml /hr d/t risk of refeeding syndrome and increase by 10ml every 8-12 hours as tolerated until goal rate is achieved. Will monitor weight, as available. Reviewed and approved by Jeanna Seals RDN, LD. Lab / Micro Data 06/16/24 05:30 06/16/24 05:30 Labs: Laboratory Results - last 24 hr 06/15/24 11:09: POC Glucose 175 H 06/15/24 15:30: POC Glucose 131 H 06/15/24 20:39: POC Glucose 191 H 06/16/24 05:30: WBC 18.0 H, RBC 3.28 L, Hgb 9.1 L, Hct 29.4 L, MCV 89.6, MCH 27.7, MCHC 31.0 L, RDW Std Deviation 48.2 H, RDW Coeff of Tyesha 14.9 H, Plt Count 295, MPV 11.0, Sodium 146 H, Potassium 3.8, Chloride 117 H, Carbon Dioxide 22.0, Anion Gap 7, BUN 55 H, Creatinine 1.87 H, Estim Creat Clear Calc 33.28, Est GFR (MDRD) Af Amer 44 L, Est GFR (MDRD) Non-Af 37 L, BUN/Creatinine Ratio 29.4 H, G lucose 254 H, Calcium 8.4 L 06/16/24 06:13: POC Glucose 218 H Micro: Microbiology 06/12/24 08:30 Blood Culture (Wb) - Anticubital Right Blood Culture - Preliminary No growth in 48 hours. 06/11/24 08:30 Urine Catheter - Catheter Urine Culture - Final Klebsiella oxytoca Physical Exam Const Constitutional Narrative: Elderly male, very fatigued appearing but slightly more alert today, laying back in bed with neck brace in place, opening eyes on command and nodding yes or no to questions but not able to verbalize anything. Orientation / Consciousness: lethargic HEENT normocephalic, head/scalp atraumatic, hearing grossly normal bilaterally and nasal mucous membranes and turbinates normal Eyes PERRL, EOMs intact bilaterally and conjunctivae normal Neck Neck Narrative: Neck brace in place. Wound VAC in place with serosanguineous drainage noted. Lymph Lymphatic: no lymphadenopathy noted Chest inspection of chest normal Resp normal respiratory effort, no use of accessory muscles and clear to auscultation bilaterally Cardio regular rate, regular rhythm, no murmurs and peripheral pulses 2+ throughout GI normal to inspection, nondistended, normoactive bowel sounds, soft to palpation, non-tender and non-distended Extremity normal to inspection and no pedal edema Assessment & Plan Assessment/Plan (1) Acute hypoxemic respiratory failure: (2) Status post cervical spinal fusion: PLAN: Plan Patient is an 83-year-old male who presented to [facility] ED on 06/04/2024 from the TCU for planned cervical spine procedure. Hospital course complicated by bilateral pulmonary emboli with right heart strain, sepsis secondary to Klebsiella UTI, KELVIN and metabolic encephalopathy. 1. Acute hypoxic respiratory failure secondary to bilateral pulmonary emboli with right heart strain, improving ? Fast Foods Worker followed. Had postoperative acute respiratory failure on 06/05 requiring transfer to the ICU. CTA chest showed bilateral PE with right heart strain. Echo 06/06 showed EF 60%, severely dilated RV, moderately decreased RV systolic function. Continue treatment with therapeutic Lovenox, plan is to transition to Eliquis once wound VAC changes are complete on 06/21. Weaned back to room air at rest. Continue to monitor. 2. 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 Orthopedic surgery and plastic surgery following. Wound VAC in place with bloody to serosanguineous drainage noted. Notably has continued to have consistent serosanguineous to bloody drainage over the past several days, suspect this is contributing to his anemia as noted below. Cervical collar in place. Continue management per specialists. 3. Acute metabolic encephalopathy ? Unclear etiology. Patient is able to open eyes and nod yes or no to questions but remains very lethargic. Has not had any nutrition for 2 days. Has not received any sedative medications for the last 2 days with minimal improvement. Continue to monitor closely. N.p.o. status. Speech therapy following. Planning for barium swallow study tomorrow and if patient does not pass, will need to discuss initiating supplemental nutrition. 4. Sepsis secondary to Klebsiella UTI ? Urine culture 06/11 grew greater than 100,000 Klebsiella. Blood cultures with no growth. Blood pressure improved with IV fluid resuscitation. Continue IV ceftriaxone for 7-day course total, stop date 06/17. 5. KELVIN ? Baseline creatinine appears to be around 1.2. Creatinine worsened post procedure likely due to hypotension in setting of bilateral PE and UTI. Peak of 2.49 on 06/11. Now stable around 1.7-1.8. Adequate urine output. Continue to monitor daily BMP and urine output. 6. Anemia ? Hemoglobin slowly down trended during hospitalization suspect due to blood loss and drainage from wound VAC and lab draws. Did have 1 apparent dark stool on 06/15 but has had no further stools since then. Most recent hemoglobin 9.1 on 06/16. Continue to monitor CBC daily. Okay to continue IV PPI twice daily for now. 7. Hypernatremia ? Suspect due to poor p.o. intake. Most recent sodium 146 on 06/16. Continue maintenance D5W while n.p.o. status. 8. Urinary retention ? Had Jeffrey catheter placed early in hospitalization due to retention. Continue Jeffrey at this time. Chronic medical conditions: ? Class II obesity: BMI 35 on admit. Complicates hospital course, care and prognosis. ? Type 2 diabetes mellitus: Continue reduced regimen from home of Lantus 20 units at night with sliding scale insulin every 6 hours as needed while n.p.o. Adjust regimen as needed. ? Hypertension: Holding home atenolol, losartan and Jardiance. ? Hyperlipidemia: Continue home statin. ? Hypothyroidism: Continue Synthroid. DVT prophylaxis: Not indicated, on therapeutic Lovenox CODE STATUS: DNR CCA, DNI Expected disposition: TBD Total clinical time spent by myself addressing the patient's medical issues, reviewing all the data, and collaborating with patient's care team: 35 minutes. Charges/Coding Visit Charges Inpatient E&M: 98405 Subs Hosp L2
[2024-06-16] MEDS: Insulin Lispro 100 UNIT/ML INSULN.PEN SC ×3 (12:08→23:57)
[2024-06-16 13:15] LABS: Bedside Glucose 246 mg/dL (74-106)
[2024-06-16 17:35] LABS: Bedside Glucose 243 mg/dL (74-106)
--- NOTE | 2024-06-16 19:05 | PN.ORTHO_ITS ---
Subjective Subjective Postop day 12 status post C3-T1 fusion with plastic surgery coverage, with complications of PE and UTI. Patient still continues to not be fully responsive. I was able to have him move all 4 extremities. He denies any neck pain. He is not able to keep his eyes open for conversation. He is n.p.o. because he cannot swallow. Had nasal O2 with sats close to 100. Objective Data Objective Data Vital Signs: Vital Signs Temp Pulse Resp BP Pulse Ox O2 Del Method O2 Flow Rate 97.5 F L 84 16 117/68 100 Nasal Cannula 2 06/16/24 14:30 06/16/24 14:30 06/16/24 14:30 06/16/24 14:30 06/16/24 14:30 06/16/24 14:30 06/16/24 14:30 FiO2 30 06/06/24 15:34 Oxygen Flow Rate (L/min) 2 Oxygen Delivery Method Nasal Cannula Weight: 222 lb 7.143 oz Body Mass Index (BMI) 34.8 Intake & Output: Intake and Output for Last 24 Hours 06/14/24 06/15/24 06/16/24 23:59 23:59 23:59 Intake Total 1050 / 1050 1994 1435 / 1435 Output Total 3260 / 3260 955 / 955 1135 / 1135 Balance -2210 / -2210 1040 / 1040 300 / 300 Medical Nutrition Assessment Dietitian: Malnutrition Criteria Met Start: 06/16/24 10:42 Freq: Status: Active Protocol: Document 06/16/24 10:43 SB (Rec: 06/16/24 10:43 SB [id number]) Nutrition Malnutrition Evidence of Malnutrition Exists Yes Malnutrition (severe): Acute Illness/Injury Evidenced By Suboptimal Energy Intake ( Severe),Weight Loss (Severe) Intake Problem Inadequate Oral Intake Etiology related to mental status Signs/Symptoms as evidenced by NPO status. Status Active Problem Clinical Problem Acute Disease or Injury Related Malnutrition Etiology severe related to inadequate oral intake Signs/Symptoms as evidenced by PO meeting <50 % of estimated nutrition needs x 1 week, 7% unintentional weight loss x 2 weeks, and 2+ pitting edema in L arm. Status Active Problem Altered Nutrient-Related Laboratory Values Etiology related to endocrine dysfunction/diabetes Signs/Symptoms as evidenced by A1C 11% and glucose 254 Status Active Problem Recommendation Dietitian Recommendations/Changes Recommend advanced diet as tolerated to liberal regular diet d/t signs and symptoms of malnutrition, per CASE RESOLUTION SPECIALIST consistency/texture recommendations. Will d/c glucerna shake d/t NPO. Recommend initiating nutrition support in 24-48 hours if pt is still NPO. If nutrition support is initiated recommend Jevity 1. 5Cal goal rate 50ml/hr with 130ml flushes every 4 hours to provide 1800 calories, 76g protein, and 1692ml total fluid/day. Wound start at 10ml /hr d/t risk of refeeding syndrome and increase by 10ml every 8-12 hours as tolerated until goal rate is achieved. Will monitor weight, as available. Reviewed and approved by Jeanna Seals RDN, LD. Lab / Micro Data 06/16/24 05:30 06/16/24 05:30 Labs: Laboratory Results - last 24 hr 06/15/24 20:39: POC Glucose 191 H 06/16/24 05:30: WBC 18.0 H, RBC 3.28 L, Hgb 9.1 L, Hct 29.4 L, MCV 89.6, MCH 27.7, MCHC 31.0 L, RDW Std Deviation 48.2 H, RDW Coeff of Tyesha 14.9 H, Plt Count 295, MPV 11.0, Sodium 146 H, Potassium 3.8, Chloride 117 H, Carbon Dioxide 22.0, Anion Gap 7, BUN 55 H, Creatinine 1.87 H, Estim Creat Clear Calc 33.28, Est GFR (MDRD) Af Amer 44 L, Est GFR (MDRD) Non-Af 37 L, BUN/Creatinine Ratio 29.4 H, G lucose 254 H, Calcium 8.4 L 06/16/24 06:13: POC Glucose 218 H 06/16/24 12:06: POC Glucose 246 H 06/16/24 17:01: POC Glucose 243 H Micro: Microbiology 06/12/24 08:30 Blood Culture (Wb) - Anticubital Right Blood Culture - Preliminary No growth in 48 hours. 06/11/24 08:30 Urine Catheter - Catheter Urine Culture - Final Klebsiella oxytoca Physical Exam Narrative Dressing CDI, 1 drain and wound VAC present, managed by plastic surgery and wound care. Neuroexam difficult to assess but moves all 4 extremities actively. Assessment & Plan Assessment/Plan (1) Status post cervical spinal fusion: PLAN: Plan Postop day 12 status post C3-T1 fusion. Patient has been n.p.o. for 2 to 3 days now, may need some form of enteral or parenteral nutrition at some point. UTI being managed by Rocephin. Seems hemodynamically stable, maintaining saturation. Unclear as to why he is not responsive, he is not on any sedatives. Appreciate medicine, plastic surgery comanagement. Will continue to follow.
[2024-06-16] MEDS: Insulin Glargine-YFGN 100 UNIT/ML Pen 20 UNIT SC (20:56)
[2024-06-16 22:19] LABS: Bedside Glucose 238 mg/dL (74-106)
[2024-06-17] VITALS (15 sets, daily range): BP systolic 102–133; BP diastolic 34–98; PULSE 77–95; RESP 14–20; TEMP 35.7–37.1; O2SAT 94–100; BMI 34.5
[2024-06-17 00:45] LABS: Bedside Glucose 238 mg/dL (74-106)
[2024-06-17] MEDS: 0.9% Saline Lock 10 ML Syringe IV (00:47)
[2024-06-17] MEDS: fentaNYL 100 MCG/2 ML Ampul 25 MCG IV (00:47)
[2024-06-17] MEDS: Insulin Lispro 100 UNIT/ML INSULN.PEN SC ×2 (05:55→17:16)
--- NOTE | 2024-06-17 06:00 | RAD_ITS ---
STUDY: X-RAY - CERVICAL SPINE REASON FOR EXAM: Male, 83 years old. Increased drainage in eufemia drain, increased pain TECHNIQUE: 2 view(s) of the cervical spine were obtained. COMPARISON: 06/05/2024 FINDINGS: Normal anterior atlantoaxial articulation. Normal odontoid process. There is straightening of the normal cervical lordosis. Status post transpedicular fixation throughout the cervical spine with spinal rods. Normal disc space heights. Normal visualized intervertebral neuroforamina. The soft tissue structures are unremarkable. Surgical drain consistent with recent surgery. RAD/Cerv Spine 2 or 3 Views IMPRESSION: Status post recent transpedicular fixation of the cervical spine with a surgical drain. Electronically Signed: Alfa Burns MD at 8:45 EST ,
[2024-06-17 06:31] LABS: Bedside Glucose 237 mg/dL (74-106)
[2024-06-17] MEDS: Dextrose 5%-Water (500mL Bag) 500 ML 75 ML IV (06:57)
[2024-06-17 07:09] LABS: Hematocrit 27.2 % (40-54); Hemoglobin 8.6 g/dL (13.0-16.5); Mean Corp Hgb Conc 31.6 g/dL (32-36); Mean Corpuscular Hgb 28.5 pg (27.0-32.0); Mean Corpuscular Volume 90.1 fL (80-94); Mean Platelet Vol. 10.5 fl (6.2-12.0); Platelet Count 296 K/mm3 (150-450); RBC Distribution Width CV 14.9 % (11.6-14.6); RBC Distribution Width SD 48.4 fl (35.1-43.9); Red Blood Count 3.02 M/mm3 (4.6-6.2); White Blood Count 19.3 K/mm3 (4.4-11.0)
--- NOTE | 2024-06-17 07:25 | CT_ITS ---
STUDY: CT CERVICAL SPINE WITHOUT CONTRAST REASON FOR EXAM: Male, 83 years old. Concern for hardware/soft tissues RADIATION DOSAGE (If Supplied By Facility): CTDIvol = ( 25.58 ) mGy, DLP = ( 547.67 ) mGycm TECHNIQUE: High resolution transaxial imaging was performed without contrast material. Sagittal and coronal images were reconstructed. Individualized dose optimization techniques were used for this CT. COMPARISON: 06/03/2024 FINDINGS: Normal craniovertebral junction. There are degenerative changes of the anterior atlantoaxial articulation. Normal odontoid process. There is straightening of the normal cervical lordosis. Normal vertebral bodies and posterior osseous elements. C2-3: Normal endplates. Normal disc height and morphology. Normal central canal and intervertebral neuroforamina. C3-4: Status post posterior decompression and fixation with anatomic alignment with no spinal stenosis or neural foraminal stenosis. C4-5: Status post posterior decompression and fixation with anatomic alignment. Moderate broad disc osteophyte complex produces moderate spinal stenosis relieved by the posterior decompression and mild bilateral neural foraminal stenosis. C5-6: Status post posterior decompression and fixation with anatomic alignment. Mild bilobed disc osteophyte complex produces mild spinal stenosis relieved by the posterior decompression and mild bilateral neural foraminal stenosis. C6-7: Status post posterior decompression and fixation with anatomic alignment and no spinal stenosis or neural foraminal stenosis. A C7-T1: Normal endplates. Normal disc height and morphology. Normal central canal and intervertebral neuroforamina. Status post recent posterior decompression with a surgical drain at the level C4 and C5 and postsurgical changes posteriorly. 7 cm fluid collection within the posterior paraspinous musculature worrisome for postoperative seroma, hematoma, or abscess. CT/Spine Cervical without Contras IMPRESSION: Status post recent posterior decompression and fixation with a surgical drain and 7 cm fluid collection in the posterior paraspinous musculature. Electronically Signed: Alfa Burns MD at 10:19 EST ,
[2024-06-17 07:28] LABS: Anion Gap 5 (5-15); BUN 59 mg/dL (7-18); BUN/Creat Ratio 29.6 RATIO (10-20); Calcium,Total 8.2 mg/dL (8.5-10.1); Chloride 116 mmol/L (98-107); Creatinine, Serum 1.99 mg/dL (0.70-1.30); EST Glomerular Filtration Rate 34 mL/min (>60); Est Glom Filt Rate - Afr Amer 41 mL/min (>60); Estimated Creatinine Clearance 31.13 ml/min; Glucose 250 mg/dL (74-106); Potassium 3.8 mmol/L (3.5-5.1); Sodium Level 145 mmol/L (136-145)
--- NOTE | 2024-06-17 08:09 | HP.PCM.SX_ITS ---
HPI - General General Date of Admission: 06/04/24 HPI Narrative PHILLIP ANGEL, is a 83 M who developed a PE immediately post-op from a cervical spinal fusion with muscle flap closure. He unfortunately had increased drain output yesterday afternoon and overnight (240 cc), and when I removed the VAC today, there was increased swelling/tension along the suture line. Dr. Hernandez (spine) asked for a CT neck, which confirmed diagnosis of hematoma. Arrangements have been made for emergent operative intervention this morning for I&D/hematoma evacuation. The more superficial drain (lower output) was removed, and this is where the hematoma accumulated. Today on rounds, patient is able to communicate and answer questions/follow commands, but continues to seem tired (opens eyes on command, but keeping them closed at baseline). I've updated his children about his status and the plan. They're in agreement. [facility] Medical History Abrasion Insulin dependent diabetes mellitus Thyroid disease Diabetes Non-smoker History of edema Nephrolithiasis Uncontrolled diabetes mellitus Lactose intolerance Debility Bilateral edema of lower extremity Osteoarthritis Stroke/cerebrovascular accident Hypothyroid High cholesterol Diabetes Hypertension Home Medications ?Medication ?Instructions ?Recorded ?Last Taken ?Type aspirin 325 mg tablet 325 mg PO DAILY@0800 HEALTH 08/20/16 05/31/24 History MAINTENANCE atenolol 25 mg tablet 25 mg PO QHS BP 08/20/16 11/19/23 22:55 History atorvastatin 40 mg tablet 40 mg PO QHS CHOLESTEROL 08/20/16 05/30/24 History levothyroxine 75 mcg tablet 75 mcg PO DAILY THYROID 08/20/16 06/04/24 History nitroglycerin 0.4 mg sublingual 0.4 mg sublingual Q5M PRN Chest 08/20/16 Unknown History tablet Pain insulin glargine-yfgn 100 unit/mL 27 unit subcut QHS Diabetes 12/19/22 11/19/23 23:25 History (3 mL) subcutaneous pen insulin lispro 100 unit/mL 9 unit subcut TID Diabetes 12/19/22 11/20/23 History subcutaneous pen (Humalog KwikPen (U-100) Insulin) glucosamine-chondroitin 250 mg-200 2 tab PO TID Supplement 11/16/23 Unknown History mg tablet (Osteo Bi-Flex) losartan 100 mg tablet 100 mg PO DAILY BP 11/16/23 06/04/24 History omega 4-noc-hri-fish oil 1,200 mg 1 cap PO BID Supplement 11/16/23 11/20/23 History (144 mg-216 mg) capsule (Fish Oil) acetaminophen 500 mg tablet 1,000 mg (2 x 500 mg) PO Q6H PRN 12/07/23 Unknown Rx PRN Pain Score 1-10 #0 tabs furosemide 40 mg tablet 40 mg PO DAILY Fluid retention 30 12/07/23 Unknown Rx days #30 tabs empagliflozin 25 mg tablet 25 mg PO DAILY Blood sugar 05/28/24 Unknown History (Jardiance) meloxicam 7.5 mg tablet 7.5 mg PO DAILY Osteoarthristis 05/28/24 Unknown History mupirocin 2 % topical ointment 1 applic topical TID Skin condition 05/28/24 Unknown History dexamethasone 4 mg tablet 8 mg (2 x 4 mg) PO TID Steroid #0 05/31/24 05/31/24 Rx tabs insulin lispro 100 unit/mL See Protocol subcut ACHS Blood 05/31/24 Unknown Rx subcutaneous pen (Humalog KwikPen sugar #0 mL (U-100) Insulin) nutrition tx glu 120 ml PO TIDCM supplement #0 mL 05/31/24 Unknown Rx intol,lac-free,soy-fiber 0.06 gram-1.2 kcal/mL liquid (Glucerna 1.2 Jai) hydrochlorothiazide 12.5 mg capsule 12.5 mg PO DAILY bp 06/04/24 Unknown History Allergy/AdvReac Type Severity Reaction Status Date / Time iodine Allergy Swelling Verified 05/28/24 19:28 Penicillins AdvReac Mild PT UNSURE Verified 05/28/24 19:28 OF REACTION Surgical History History of tonsillectomy History of appendectomy History of cholecystectomy Social History household members: none Smoking Status: Never smoker alcohol intake: never substance use type: does not use Vital Signs Vital Signs Vital Signs: 06/16/24 08:30 06/16/24 12:52 06/16/24 12:53 Temperature 97.1 F L Temperature Source Temporal Pulse Rate 60 Pulse Strength Respiratory Rate 18 Respiratory Effort Blood Pressure 116/47 L Blood Pressure Mean 70 Blood Pressure Source Monitor Blood Pressure Position Semi-Fowlers Blood Pressure Location Right Forearm Pulse Ox 93 89 95 Oxygen Delivery Method Room Air Room Air Nasal Cannula Oxygen Flow Rate (L/min) 2 06/16/24 14:30 06/16/24 19:40 06/16/24 20:18 Temperature 97.5 F L Temperature Source Temporal Pulse Rate 84 Pulse Strength Normal (2+) Respiratory Rate 16 Respiratory Effort Normal Non-Labored Blood Pressure 117/68 Blood Pressure Mean 84 Blood Pressure Source Monitor Blood Pressure Position Semi-Fowlers Blood Pressure Location Left Forearm Pulse Ox 100 Oxygen Delivery Method Nasal Cannula Nasal Cannula Oxygen Flow Rate (L/min) 2 2 06/16/24 20:50 06/17/24 00:01 06/17/24 04:00 Temperature 97.7 F L 97.6 F L Temperature Source Oral Oral Pulse Rate 84 93 Pulse Strength Respiratory Rate 18 20 H Respiratory Effort Blood Pressure 128/65 H 115/60 Blood Pressure Mean 86 78 Blood Pressure Source Monitor Monitor Blood Pressure Position Semi-Fowlers Semi-Fowlers Blood Pressure Location Left Arm Left Arm Pulse Ox 100 94 Oxygen Delivery Method Nasal Cannula Nasal Cannula Nasal Cannula Oxygen Flow Rate (L/min) 2 2 2 06/17/24 04:00 Temperature 97.7 F L Temperature Source Oral Pulse Rate 88 Pulse Strength Respiratory Rate 20 H Respiratory Effort Blood Pressure 118/59 L Blood Pressure Mean 78 Blood Pressure Source Monitor Blood Pressure Position Semi-Fowlers Blood Pressure Location Left Arm Pulse Ox 100 Oxygen Delivery Method Nasal Cannula Oxygen Flow Rate (L/min) 2 Weight Weight: 220 lb 7.396 oz Body Mass Index (BMI) 34.5 Physical Exam Narrative NECK: Slight dehiscence (skin edges are not approximated well) in the middle of the incision and there is fluid beneath the incision consistent with hematoma. Const alert and oriented x3 Resp normal respiratory effort Cardio regular rate Extremity Extremity Narrative: Extremities: 5/5 check grader strength on hands. SCDs are on and activated. No swelling in the lower extremity. Results Medical Records Data Medical Nutrition Assessment Dietitian: Malnutrition Criteria Met Start: 06/16/24 10:42 Freq: Status: Active Protocol: Document 06/16/24 10:43 SB (Rec: 06/16/24 10:43 SB [id number]) Nutrition Malnutrition Evidence of Malnutrition Exists Yes Malnutrition (severe): Acute Illness/Injury Evidenced By Suboptimal Energy Intake ( Severe),Weight Loss (Severe) Intake Problem Inadequate Oral Intake Etiology related to mental status Signs/Symptoms as evidenced by NPO status. Status Active Problem Clinical Problem Acute Disease or Injury Related Malnutrition Etiology severe related to inadequate oral intake Signs/Symptoms as evidenced by PO meeting <50 % of estimated nutrition needs x 1 week, 7% unintentional weight loss x 2 weeks, and 2+ pitting edema in L arm. Status Active Problem Altered Nutrient-Related Laboratory Values Etiology related to endocrine dysfunction/diabetes Signs/Symptoms as evidenced by A1C 11% and glucose 254 Status Active Problem Recommendation Dietitian Recommendations/Changes Recommend advanced diet as tolerated to liberal regular diet d/t signs and symptoms of malnutrition, per SHEETER OPERATOR consistency/texture recommendations. Will d/c glucerna shake d/t NPO. Recommend initiating nutrition support in 24-48 hours if pt is still NPO. If nutrition support is initiated recommend Jevity 1. 5Cal goal rate 50ml/hr with 130ml flushes every 4 hours to provide 1800 calories, 76g protein, and 1692ml total fluid/day. Wound start at 10ml /hr d/t risk of refeeding syndrome and increase by 10ml every 8-12 hours as tolerated until goal rate is achieved. Will monitor weight, as available. Reviewed and approved by Jeanna Seals RDN, MANISHA. Lab / Micro Data 06/17/24 06:45 06/17/24 06:45 Labs: Laboratory Results - last 24 hr 06/16/24 12:06: POC Glucose 246 H 06/16/24 17:01: POC Glucose 243 H 06/16/24 20:55: POC Glucose 238 H 06/16/24 23:51: POC Glucose 238 H 06/17/24 05:53: POC Glucose 237 H 06/17/24 06:45: WBC 19.3 H, RBC 3.02 L, Hgb 8.6 L, Hct 27.2 L, MCV 90.1, MCH 28.5, MCHC 31.6 L, RDW Std Deviation 48.4 H, RDW Coeff of Tyesha 14.9 H, Plt Count 296, MPV 10.5, Sodium 145, Potassium 3.8, Chloride 116 H, Carbon Dioxide 24.0, Anion Gap 5, BUN 59 H, Creatinine 1.99 H, Estim Creat Clear Calc 31.13, Est GFR (MDRD) Af Amer 41 L, Est GFR (MDRD) Non-Af 34 L, BUN/Creatinine Ratio 29.6 H, G lucose 250 H, Calcium 8.2 L Assessment & Plan Assessment/Plan (1) Hematoma: PLAN: Plan to return to the OR to drain the space superficial to the muscle closure as he has developed a hematoma that is putting significant pressure on the suture line and could lead to infection. Dr. Hernandez in agreement. We will also consider a feeding tube (nose) for supplemental nutrition in the setting of poor/failed PO intake. Discussing with patient's family and the primary team this morning. Charges/Coding Procedures Integumentary [id number]: [id number] Global Visit
[2024-06-17] MEDS: Ceftriaxone 1 GM/50 ML BAG IV (08:52)
[2024-06-17] MEDS: 0.9% Normal Saline (1000mL) 1,000 ML 15 ML IV (09:46)
--- NOTE | 2024-06-17 09:59 | PRE.ANES_ITS ---
ASA Classification* ASA Classification ASA Classification: 4 and E Assessment & Plan Anesthesia* Anesthesia Assessment Anesthesia Assessment: Discussed sedation and/or anesthesia options, risks, benefits, and alternatives with patient/parents/legal guardian/POA. Questions invited. The patient/parents/legal guardian/POA seems to understand and agrees to proceed with anesthesia plan. Reviewed the physical assessment, medical history, allergy history and patient home medications list prior to surgery/procedure/anesthetic and documented any changes. Performed airway and anesthesia risk assessments. Anesthesia Type Anesthesia Type: General (Glidescope) Anesthesia Focused Assessment* Temperature: 96.6 F Pulse Rate: 83 Blood Pressure: 105/47 Respiratory Rate: 20 Pulse Ox: 95 Oxygen Flow Rate (L/min): 2 Fraction of Inspired Oxygen (FIO2): 30 Airway Assessment Mouth opens: >3 cm Mallampati Score: II Focused Labs Anesthesia Preop lab: CBC WBC 19.3 K/mm3 (4.4-11.0) H 06/17/24 06:45 RBC 3.02 M/mm3 (4.6-6.2) L 06/17/24 06:45 Hgb 8.6 g/dL (13.0-16.5) L 06/17/24 06:45 Hct 27.2 % (40-54) L 06/17/24 06:45 Plt Count 296 K/mm3 (150-450) 06/17/24 06:45 CHEMISTRY Potassium 3.8 mmol/L (3.5-5.1) 06/17/24 06:45 Sodium 145 mmol/L (136-145) 06/17/24 06:45 Magnesium 2.9 mg/dL (1.6-2.6) H 06/14/24 05:55 Phosphorus 3.8 mg/dL (2.5-4.9) 06/14/24 05:55 BUN 59 mg/dL (7-18) H 06/17/24 06:45 Creatinine 1.99 mg/dL (0.70-1.30) H 06/17/24 06:45 Glucose 250 mg/dL (74-106) H 06/17/24 06:45 POC Glucose 237 mg/dL (74-106) H 06/17/24 05:53 TSH 0.836 uIU/mL (0.358-3.740) 06/05/24 05:07 COAG PT 14.0 SECONDS (11.7-14.9) 06/05/24 17:40 Pre-Assessment Diagnosis/Proposed Procedure Planned Operative Procedure(s): S/P POSTERIOR CERVICAL FUSION Hematoma evacuation/exploration Anesthesia History Anesthesia History - instructional interventionist: Anesthesia History - instructional interventionist Hx Hospitalization No 06/03/24 14:52 Any Problems With Anesthesia No 06/03/24 14:52 Cholinesterase deficiency No 06/03/24 14:52 You/Your Family Experience No 06/03/24 14:52 fever (hyperthermia) with Relationship Recent Exposure to Contagious No 06/04/24 12:02 Disease Does patient have nerve No 06/03/24 14:52 stimulator Patient instructed to have device shut off --Does patient have Pacemaker No 06/04/24 12:02 or ICD? When Was Last Pacemaker Check QUESTION #4 FULL TEXT: You/Your Family Experience fever (hyperthermia) with Anesthesia Last Oral Intake Last Oral intake: Last Oral Intake NPO since 00:00 06/04/24 12:02 Meds taken in AM with sips of Yes 06/04/24 12:02 water? Meds patient instructed to take am of surgery PONV PONV - instructional interventionist: PONV - instructional interventionist Female No 06/03/24 14:52 HX of Motion Sickness No 06/03/24 14:52 HX of N/V After Surgery No 06/03/24 14:52 Non-Smoker Yes 06/03/24 14:52 Duration of Surgery greater Yes 06/03/24 14:52 than 60 minutes Number of Risk Factors 2 06/03/24 14:52 PONV Score Moderate Risk 06/03/24 14:52 Height & Weight Height & Weight: Anesthesia: Height & Weight Height 5 ft 7 in 06/16/24 08:35 Weight: 100 kg 06/17/24 03:56 Body Mass Index (BMI) 34.5 06/17/24 03:56 Respiratory Assessment Respiratory Assessment - instructional interventionist: Respiratory Tract Infection Hx - instructional interventionist Hx Respiratory Tract Infection No 06/03/24 14:52 STOP Sleep Apnea STOP Sleep Apnea - instructional interventionist: STOP Sleep Apnea - instructional interventionist Hx Hypertension Yes 06/05/24 11:08 Hx Sleep Apnea No 06/04/24 21:43 CPAP BIPAP Do you snore loudly (louder No 06/04/24 21:43 than talking or can be heard Do you often feel tired/ No 06/04/24 21:43 fatigued/ sleepy during daytime? Has anyone observed you stop No 06/04/24 21:43 breathing during sleep? STOP Results Negative 06/04/24 21:43 QUESTION #5 FULL TEXT : Do you snore loudly (louder than talking or can be heard through closed doors)? Tobacco Use History Tobacco Use History - instructional interventionist: Tobacco Use History - instructional interventionist Tobacco Use Non-smoker 05/30/24 16:11 Smoking Status Never smoker 06/04/24 21:43 Hx Tobacco Use No 06/04/24 21:43 Years Smoking Packs Smoked per Day Smoking Cessation Date was within the last 15 years Hx Smoking Cessation Date Hx Smoking Cessation No 06/04/24 21:43 Counseling Hematologic Medial History Hematologic Hx - instructional interventionist: Hematologic Medical Hx - mortgage servicing specialist Hx of Blood Transfusion No 06/04/24 21:43 Hx of Transfusion in last 3 No 06/04/24 21:43 Months Date of Last Transfusion (if within last 3 months) Ever experience any problems No 06/04/24 21:43 with transfusion(s)? Specify any problems Hx of Preganancy in last 3 N/A 06/04/24 21:43 Months Nurse Filling Out Transfusion [id number] 06/04/24 21:43 & Questions: Date: 06/04/24 06/04/24 21:43 Time: 21:47 06/04/24 21:43 Patient unable to answer at this time (ie. confused, unrespo /Reproduction History /Reproductive History - instructional interventionist: /Reproductive Hx- instructional interventionist Hx Now No 06/03/24 14:52 Gestational Age (in weeks): EDC: Hx Hx Para Hx Section SAB No 06/03/24 14:52 Active Medications Active Medications: Current Medications Generic Name Dose Route Start Last Admin Trade Name Freq PRN Reason Stop Dose Admin Acetaminophen 1,000 mg 06/04/24 22:00 06/17/24 05:21 Acetaminophen 500 Mg Tablet PO Not Given Q8 IMAN Atorvastatin Calcium 40 mg 06/04/24 22:00 06/16/24 20:57 Atorvastatin Calcium 40 Mg Tablet PO Not Given QHS IMAN Enoxaparin Sodium 100 mg 06/15/24 22:00 06/16/24 20:56 Enoxaparin 100 Mg/Ml Syringe SC 100 mg Q12 IMAN Administration Glucagon 1 mg 06/05/24 02:48 Glucagon 1 Mg/Ml Syringe IM X1 PRN Hypoglycemia Protocol Sodium Chloride 500 mls @ 15 mls/hr 06/04/24 21:54 IV .[id number] PRN Saline Flush Sodium Chloride 500 mls @ 15 mls/hr 06/04/24 21:54 IV .[id number] PRN Additional IVPB Infusion Dextrose 250 mls @ 0 mls/hr 06/05/24 02:48 06/12/24 07:33 Dextrose 10%-Water IV Infused .Q0M PRN Infusion HYPOGLYCEMIA Protocol As Directed Ceftriaxone Sodium 1 gm in 50 mls @ 100 mls/hr 06/11/24 10:00 06/17/24 09:22 Rocephin IV 06/17/24 10:29 Infused Q24 IMAN Infusion Pantoprazole Sodium 40 mg/ 110 mls @ 330 mls/hr 06/15/24 10:45 06/16/24 21:34 Sodium Chloride IV Infused Q12 IMAN Infusion Sodium Chloride 1,000 mls @ 15 mls/hr 06/17/24 09:40 06/17/24 09:46 IV 06/22/24 22:59 15 mls/hr .Q48H IMAN Administration Protocol Insulin Glargine 20 unit 06/15/24 22:00 06/16/24 20:56 Insulin Glargine-Yfgn 100 Unit/Ml Pen SC 20 unit QHS IMAN Administration Insulin Human Lispro 0 unit 06/16/24 12:00 06/17/24 05:55 Insulin Lispro 100 Unit/Ml Insuln.Pen SC 4 units Q6 [facility] Administration Protocol Levothyroxine Sodium 75 mcg 06/05/24 06:00 06/17/24 05:21 Levothyroxine 75 Mcg Tablet PO Not Given DAILY@0600 [facility] Midodrine 10 mg 06/12/24 08:15 06/17/24 07:29 Midodrine Hcl 5 Mg Tablet PO Not Given TIDCM [facility] Nutritional Formula (Lactose Free) 120 ml 06/07/24 17:00 06/17/24 07:28 Glucerna Shake 120 Ml Liquid PO Not Given TIDCM IMAN Ondansetron HCl 4 mg 06/04/24 17:53 Ondansetron 4 Mg/2 Ml Vial IV Q8H PRN PRN NAUSEA/VOMITING Senna/Docusate Sodium 2 tablet 06/04/24 22:00 06/17/24 08:33 Senna/Docusate Sodium 1 Tablet PO Not Given BID IMAN Sodium Chloride 10 - 40 ml 06/04/24 21:54 06/17/24 00:47 0.9% Saline Lock 10 Ml Syringe IV 20 ml UD PRN Administration SALINE FLUSH PFSH Medical History Abrasion Insulin dependent diabetes mellitus Thyroid disease Diabetes Non-smoker History of edema Nephrolithiasis Uncontrolled diabetes mellitus Lactose intolerance Debility Bilateral edema of lower extremity Osteoarthritis Stroke/cerebrovascular accident Hypothyroid High cholesterol Diabetes Hypertension Home Medications ?Medication ?Instructions ?Recorded ?Last Taken ?Type aspirin 325 mg tablet 325 mg PO DAILY@0800 HEALTH 08/20/16 05/31/24 History MAINTENANCE atenolol 25 mg tablet 25 mg PO QHS BP 08/20/16 11/19/23 22:55 History atorvastatin 40 mg tablet 40 mg PO QHS CHOLESTEROL 08/20/16 05/30/24 History levothyroxine 75 mcg tablet 75 mcg PO DAILY THYROID 08/20/16 06/04/24 History nitroglycerin 0.4 mg sublingual 0.4 mg sublingual Q5M PRN Chest 08/20/16 Unknown History tablet Pain insulin glargine-yfgn 100 unit/mL 27 unit subcut QHS Diabetes 12/19/22 11/19/23 23:25 History (3 mL) subcutaneous pen insulin lispro 100 unit/mL 9 unit subcut TID Diabetes 12/19/22 11/20/23 History subcutaneous pen (Humalog KwikPen (U-100) Insulin) glucosamine-chondroitin 250 mg-200 2 tab PO TID Supplement 11/16/23 Unknown History mg tablet (Osteo Bi-Flex) losartan 100 mg tablet 100 mg PO DAILY BP 11/16/23 06/04/24 History omega 4-oky-gza-fish oil 1,200 mg 1 cap PO BID Supplement 11/16/23 11/20/23 History (144 mg-216 mg) capsule (Fish Oil) acetaminophen 500 mg tablet 1,000 mg (2 x 500 mg) PO Q6H PRN 12/07/23 Unknown Rx PRN Pain Score 1-10 #0 tabs furosemide 40 mg tablet 40 mg PO DAILY Fluid retention 30 12/07/23 Unknown Rx days #30 tabs empagliflozin 25 mg tablet 25 mg PO DAILY Blood sugar 05/28/24 Unknown History (Jardiance) meloxicam 7.5 mg tablet 7.5 mg PO DAILY Osteoarthristis 05/28/24 Unknown History mupirocin 2 % topical ointment 1 applic topical TID Skin condition 05/28/24 Unknown History dexamethasone 4 mg tablet 8 mg (2 x 4 mg) PO TID Steroid #0 05/31/24 05/31/24 Rx tabs insulin lispro 100 unit/mL See Protocol subcut ACHS Blood 05/31/24 Unknown Rx subcutaneous pen (Humalog KwikPen sugar #0 mL (U-100) Insulin) nutrition tx glu 120 ml PO TIDCM supplement #0 mL 05/31/24 Unknown Rx intol,lac-free,soy-fiber 0.06 gram-1.2 kcal/mL liquid (Glucerna 1.2 Jai) hydrochlorothiazide 12.5 mg capsule 12.5 mg PO DAILY bp 06/04/24 Unknown History Allergy/AdvReac Type Severity Reaction Status Date / Time iodine Allergy Swelling Verified 05/28/24 19:28 Penicillins AdvReac Mild PT UNSURE Verified 05/28/24 19:28 OF REACTION Surgical History History of tonsillectomy History of appendectomy History of cholecystectomy Social History household members: none Smoking Status: Never smoker alcohol intake: never substance use type: does not use Review of Systems (Anesthesia) ROS Narrative System reviewed and no additional complaints, except as documented.
--- NOTE | 2024-06-17 10:26 | PCM.PN.HOSP ---
Reason for Visit Reason for Visit: Diagnoses Hypothyroidism, unspecified (06/04/24) Type 2 diabetes mellitus with hyperglycemia (06/04/24) Obesity, unspecified (06/04/24) Hyperlipidemia, unspecified (06/04/24) Other specified diseases of spinal cord (06/04/24) Disease of spinal cord, unspecified (06/04/24) Essential (primary) hypertension (06/04/24) Cerebral infarction, unspecified (06/04/24) Acute respiratory failure with hypoxia (06/04/24) Unspecified osteoarthritis, unspecified site (06/04/24) Other injury of unspecified body region, initial encounter (06/04/24) Arthrodesis status (06/04/24) Subjective Subjective Saw patient at bedside later this afternoon after he came back from his procedure. Patient was more fatigued appearing than yesterday but he was able to open his eyes on command and answered my questions with nodding or shaking his head. He denied any acute pain currently. No other acute concerns. Objective Data Objective Data Vital Signs: Vital Signs Temp Pulse Resp BP Pulse Ox O2 Del Method O2 Flow Rate 96.6 F L 83 20 H 105/47 L 95 Nasal Cannula 2 06/17/24 10:01 06/17/24 10:01 06/17/24 10:01 06/17/24 10:01 06/17/24 10:01 06/17/24 08:45 06/17/24 10:01 FiO2 30 06/17/24 10:01 Oxygen Flow Rate (L/min) 2 Oxygen Delivery Method Nasal Cannula Weight: 100 kg Body Mass Index (BMI) 34.5 Intake & Output: Intake and Output for Last 24 Hours 06/15/24 06/16/24 06/17/24 23:59 23:59 23:59 Intake Total 1994 2045 / 5 697.5 / 697.5 Output Total 955 / 955 1525 / 1525 430 / 430 Balance 1040 / 1040 520 / 520 267.5 / 267.5 Medical Nutrition Assessment Dietitian: Malnutrition Criteria Met Start: 06/16/24 10:42 Freq: Status: Active Protocol: Document 06/16/24 10:43 SB (Rec: 06/16/24 10:43 SB [id number]) Nutrition Malnutrition Evidence of Malnutrition Exists Yes Malnutrition (severe): Acute Illness/Injury Evidenced By Suboptimal Energy Intake ( Severe),Weight Loss (Severe) Intake Problem Inadequate Oral Intake Etiology related to mental status Signs/Symptoms as evidenced by NPO status. Status Active Problem Clinical Problem Acute Disease or Injury Related Malnutrition Etiology severe related to inadequate oral intake Signs/Symptoms as evidenced by PO meeting <50 % of estimated nutrition needs x 1 week, 7% unintentional weight loss x 2 weeks, and 2+ pitting edema in L arm. Status Active Problem Altered Nutrient-Related Laboratory Values Etiology related to endocrine dysfunction/diabetes Signs/Symptoms as evidenced by A1C 11% and glucose 254 Status Active Problem Recommendation Dietitian Recommendations/Changes Recommend advanced diet as tolerated to liberal regular diet d/t signs and symptoms of malnutrition, per [employer] consistency/texture recommendations. Will d/c glucerna shake d/t NPO. Recommend initiating nutrition support in 24-48 hours if pt is still NPO. If nutrition support is initiated recommend Jevity 1. 5Cal goal rate 50ml/hr with 130ml flushes every 4 hours to provide 1800 calories, 76g protein, and 1692ml total fluid/day. Wound start at 10ml /hr d/t risk of refeeding syndrome and increase by 10ml every 8-12 hours as tolerated until goal rate is achieved. Will monitor weight, as available. Reviewed and approved by Jeanna Seals RDN, MANISHA. Lab / Micro Data 06/17/24 06:45 06/17/24 06:45 Labs: Laboratory Results - last 24 hr 06/16/24 12:06: POC Glucose 246 H 06/16/24 17:01: POC Glucose 243 H 06/16/24 20:55: POC Glucose 238 H 06/16/24 23:51: POC Glucose 238 H 06/17/24 05:53: POC Glucose 237 H 06/17/24 06:45: WBC 19.3 H, RBC 3.02 L, Hgb 8.6 L, Hct 27.2 L, MCV 90.1, MCH 28.5, MCHC 31.6 L, RDW Std Deviation 48.4 H, RDW Coeff of Tyesha 14.9 H, Plt Count 296, MPV 10.5, Sodium 145, Potassium 3.8, Chloride 116 H, Carbon Dioxide 24.0, Anion Gap 5, BUN 59 H, Creatinine 1.99 H, Estim Creat Clear Calc 31.13, Est GFR (MDRD) Af Amer 41 L, Est GFR (MDRD) Non-Af 34 L, BUN/Creatinine Ratio 29.6 H, Glucose 250 H, Calcium 8.2 L Micro: Microbiology 06/12/24 08:30 Blood Culture (Wb) - Anticubital Right Blood Culture - Preliminary No growth in 48 hours. 06/11/24 08:30 Urine Catheter - Catheter Urine Culture - Final Klebsiella oxytoca Radiography Diagnostic Testing: Radiology Impression Cervical Spine X-Ray 06/17/24 06:00 IMPRESSION: Status post recent transpedicular fixation of the cervical spine with a surgical drain. Electronically Signed: Alfa Burns MD at 8:45 EST Reading Location ID and State: [id number] / [employer] Tel , Service support , Cervical Spine CT 06/17/24 07:25 IMPRESSION: Status post recent posterior decompression and fixation with a surgical drain and 7 cm fluid collection in the posterior paraspinous musculature. Electronically Signed: Alfa Burns MD at 10:19 EST Reading Location ID and State: [id number] / [employer] Tel , Service support , Physical Exam Const Constitutional Narrative: Elderly male, very fatigued appearing, laying back in bed with neck brace in place, opening eyes on command and nodding yes or no to questions but not able to verbalize anything. HEENT normocephalic, head/scalp atraumatic, hearing grossly normal bilaterally and nasal mucous membranes and turbinates normal Eyes PERRL, EOMs intact bilaterally and conjunctivae normal Neck Neck Narrative: Neck brace in place. Wound VAC in place with multiple drains noted with bloody to serosanguineous output. Lymph Lymphatic: no lymphadenopathy noted Chest inspection of chest normal Resp normal respiratory effort, no use of accessory muscles and clear to auscultation bilaterally Cardio regular rate, regular rhythm, no murmurs and peripheral pulses 2+ throughout GI normal to inspection, nondistended, normoactive bowel sounds, soft to palpation, non-tender and non-distended Extremity normal to inspection and no pedal edema Assessment & Plan Assessment/Plan (1) Acute hypoxemic respiratory failure: (2) Status post cervical spinal fusion: PLAN: Plan Patient is an 83-year-old male who presented to [facility] ED on 06/04/2024 from the TCU for planned cervical spine procedure. Hospital course complicated by bilateral pulmonary emboli with right heart strain, sepsis secondary to Klebsiella UTI, KELVIN and metabolic encephalopathy. 1. Acute hypoxic respiratory failure secondary to bilateral pulmonary emboli with right heart strain, improving ? Feed Research Aide followed. Had postoperative acute respiratory failure on 06/05 requiring transfer to the ICU. CTA chest showed bilateral PE with right heart strain. Echo 06/06 showed EF 60%, severely dilated RV, moderately decreased RV systolic function. Continue treatment with therapeutic Lovenox, plan is to transition to Eliquis once wound VAC changes are complete on 06/21. Weaned back to room air at rest. Continue to monitor. 2. 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 Orthopedic surgery and plastic surgery following. Patient with initial C3-T1 fusion surgery with skin flap coverage on 06/04. Unfortunately had increasing serosanguineous to bloody output from the wound VAC in recent days along with worsening swelling near the incision site. CT C-spine on 06/17 showed a new 7 cm fluid collection in the posterior paraspinous musculature consistent with a postop hematoma. S/p incision and drainage with possible closure of the hematoma on 06/17, with replacement of drain and wound VAC. Cervical collar back in place. Will continue to follow closely and appreciate orthopedic and plastic surgery assistance. 3. Acute metabolic encephalopathy ? Unclear etiology. Patient is able to open eyes and nod yes or no to questions but remains very lethargic. Has not had any nutrition for 2 days. Has not received any sedative medications for the last 2 days with minimal improvement. Continue to monitor closely. N.p.o. status. Speech therapy following. Given his procedure on 06/17, speech therapy planning to see the patient on morning of 06/18 for further evaluation and possible barium swallow study. If patient does not do well with these, will likely need NG tube placement to initiate tube feeds for supplemental nutrition. 4. Sepsis secondary to Klebsiella UTI ? Urine culture 06/11 grew greater than 100,000 Klebsiella. Blood cultures with no growth. Blood pressure improved with IV fluid resuscitation. Continue IV ceftriaxone for 7-day course total, stop date 06/17. 5. KELVIN ? Baseline creatinine appears to be around 1.2. Creatinine worsened post procedure likely due to hypotension in setting of bilateral PE and UTI. Peak of 2.49 on 06/11. Now stable around 1.7-1.9. Adequate urine output. Continue to monitor daily BMP and urine output. 6. Anemia ? Hemoglobin slowly down trended during hospitalization suspect due to blood loss and drainage from wound VAC and lab draws. Did have 1 apparent dark stool on 06/15 but has had no further stools since then. Most recent hemoglobin 8.6 on 06/17. Continue to monitor CBC daily. Okay to continue IV PPI twice daily for now. 7. Hypernatremia ? Suspect due to poor p.o. intake. Most recent sodium 145 on 06/17. Continue maintenance D5W while n.p.o. status. 8. Urinary retention ? Had Jeffrey catheter placed early in hospitalization due to retention. Continue Jeffrey at this time. Chronic medical conditions: ? Class II obesity: BMI 35 on admit. Complicates hospital course, care and prognosis. ? Type 2 diabetes mellitus: Continue reduced regimen from home of Lantus 20 units at night with sliding scale insulin every 6 hours as needed while n.p.o. Adjust regimen as needed. ? Hypertension: Holding home atenolol, losartan and Jardiance. ? Hyperlipidemia: Continue home statin. ? Hypothyroidism: Continue Synthroid. DVT prophylaxis: Not indicated, on therapeutic Lovenox CODE STATUS: DNR CCA, DNI Expected disposition: TBD Total clinical time spent by myself addressing the patient's medical issues, reviewing all the data, and collaborating with patient's care team: 35 minutes.
--- NOTE | 2024-06-17 11:08 | PN.ORTHO_ITS ---
Subjective Subjective Postop day 13 status post C3-T1 fusion with plastic surgery coverage, with complications of PE and UTI. Patient started developing increased drainage through the YEHUDA drain per nursing overnight. I was called at around [address] and x-rays of the cervical spine were done today morning. Discussed with Dr. Smith about expanding hematoma considering he is on heparin for PE. Reviewed CT and x-rays done this morning. Hardware appears intact in good position. The YEHUDA drain seems to be at the deeper level. Discussed CT with Dr. Chu plastic surgery. Agree with taking back to the OR for I&D removal of hematoma and placement of new drain. Called and spoke with patient's son and updated him. Patient's son agrees to proceed with the procedure. Objective Data Objective Data Vital Signs: Vital Signs Temp Pulse Resp BP Pulse Ox O2 Del Method O2 Flow Rate 96.6 F L 83 20 H 105/47 L 95 Nasal Cannula 2 06/17/24 10:01 06/17/24 10:01 06/17/24 10:01 06/17/24 10:01 06/17/24 10:01 06/17/24 08:45 06/17/24 10:01 FiO2 30 06/17/24 10:01 Oxygen Flow Rate (L/min) 2 Oxygen Delivery Method Nasal Cannula Weight: 220 lb 7.396 oz Body Mass Index (BMI) 34.5 Intake & Output: Intake and Output for Last 24 Hours 06/15/24 06/16/24 06/17/24 23:59 23:59 23:59 Intake Total 1994 / 1994 2045 / 2045 697.5 / 697.5 Output Total 955 / 955 1525 / 1525 430 / 430 Balance 1040 / 1040 520 / 520 267.5 / 267.5 Medical Nutrition Assessment Dietitian: Malnutrition Criteria Met Start: 06/16/24 10:42 Freq: Status: Active Protocol: Document 06/16/24 10:43 SB (Rec: 06/16/24 10:43 SB [id number]) Nutrition Malnutrition Evidence of Malnutrition Exists Yes Malnutrition (severe): Acute Illness/Injury Evidenced By Suboptimal Energy Intake ( Severe),Weight Loss (Severe) Intake Problem Inadequate Oral Intake Etiology related to mental status Signs/Symptoms as evidenced by NPO status. Status Active Problem Clinical Problem Acute Disease or Injury Related Malnutrition Etiology severe related to inadequate oral intake Signs/Symptoms as evidenced by PO meeting <50 % of estimated nutrition needs x 1 week, 7% unintentional weight loss x 2 weeks, and 2+ pitting edema in L arm. Status Active Problem Altered Nutrient-Related Laboratory Values Etiology related to endocrine dysfunction/diabetes Signs/Symptoms as evidenced by A1C 11% and glucose 254 Status Active Problem Recommendation Dietitian Recommendations/Changes Recommend advanced diet as tolerated to liberal regular diet d/t signs and symptoms of malnutrition, per METAL DRESSER consistency/texture recommendations. Will d/c glucerna shake d/t NPO. Recommend initiating nutrition support in 24-48 hours if pt is still NPO. If nutrition support is initiated recommend Jevity 1. 5Cal goal rate 50ml/hr with 130ml flushes every 4 hours to provide 1800 calories, 76g protein, and 1692ml total fluid/day. Wound start at 10ml /hr d/t risk of refeeding syndrome and increase by 10ml every 8-12 hours as tolerated until goal rate is achieved. Will monitor weight, as available. Reviewed and approved by Jeanna Seals RDN, LD. Lab / Micro Data 06/17/24 06:45 06/17/24 06:45 Labs: Laboratory Results - last 24 hr 06/16/24 12:06: POC Glucose 246 H 06/16/24 17:01: POC Glucose 243 H 06/16/24 20:55: POC Glucose 238 H 06/16/24 23:51: POC Glucose 238 H 06/17/24 05:53: POC Glucose 237 H 06/17/24 06:45: WBC 19.3 H, RBC 3.02 L, Hgb 8.6 L, Hct 27.2 L, MCV 90.1, MCH 28.5, MCHC 31.6 L, RDW Std Deviation 48.4 H, RDW Coeff of Tyesha 14.9 H, Plt Count 296, MPV 10.5, Sodium 145, Potassium 3.8, Chloride 116 H, Carbon Dioxide 24.0, Anion Gap 5, BUN 59 H, Creatinine 1.99 H, Estim Creat Clear Calc 31.13, Est GFR (MDRD) Af Amer 41 L, Est GFR (MDRD) Non-Af 34 L, BUN/Creatinine Ratio 29.6 H, G lucose 250 H, Calcium 8.2 L Micro: Microbiology 06/12/24 08:30 Blood Culture (Wb) - Anticubital Right Blood Culture - Final No growth in 5 days. 06/11/24 08:30 Urine Catheter - Catheter Urine Culture - Final Klebsiella oxytoca Radiography Diagnostic Testing: Radiology Impression Cervical Spine X-Ray 06/17/24 06:00 IMPRESSION: Status post recent transpedicular fixation of the cervical spine with a surgical drain. Electronically Signed: Alfa Burns MD at 8:45 EST , Cervical Spine CT 06/17/24 07:25 IMPRESSION: Status post recent posterior decompression and fixation with a surgical drain and 7 cm fluid collection in the posterior paraspinous musculature. Electronically Signed: Alfa Burns MD at 10:19 EST ,
[2024-06-17] MEDS: Lidocaine 1% /Epi 1:100 (20ml) 20 ML Vial (12:55)
[2024-06-17] MEDS: Bupiv/Epi 0.25% 30 ML Vial (12:55)
--- NOTE | 2024-06-17 13:37 | PCM.POST.ANE ---
Anesthesia: Postop Eval I Current Vital Signs Temperature: 97.0 F Pulse Rate: 78 Blood Pressure: 133/59 Respiratory Rate: 16 Pulse Ox: 100 Oxygen Delivery Method: Simple Mask Oxygen Flow Rate (L/min): 6 Assessment Airway patent: Yes Spontaneous unlabored respirations: Yes Mental status: Awake and Calm nausea: No Vomiting: No Anesthesia Complication: No Fluid Hydration Crystalloid volume administer (ml): 2,300 Total IV fluid infused: 2,300 Progress Note Anesthesia document: Postop Eval 1 completed: Yes
--- NOTE | 2024-06-17 13:54 | POSTOPAN2_ITS ---
Anesthesia Postop Eval I Sum Postop Eval Completion status Anesthesia document: Postop Eval 1 completed: Yes Anesthesia Postop Eval I Summary Anesthesia Postop Eval I Summary: Anesthesia Postop Eval I: Assessment Summary Airway patent Yes 06/17/24 13:39 [email or web address] Spontaneous unlabored Yes 06/17/24 13:39 TAX ASSISTANT.[email or web address] respirations Mental status Awake,Calm 06/17/24 13:39 TAX [email or web address] nausea No 06/17/24 13:39 TAX [email or web address].[email or web address] Vomiting No 06/17/24 13:39 TAX ASSISTANT.[email or web address] Anesthesia Postop Eval I: Fluid Summary Crystalloid volume administer 2,300 06/17/24 13:39 TAX [email or web address].[email or web address] (ml) Colloids volume administered ( ml) Blood Product volume administered (ml) Total IV fluid infused 2,300 06/17/24 13:39 TAX ASSISTANT.[email or web address] Anesthesia Postop Eval I: Summary Notes Anesthesia Complication No 06/17/24 13:39 TAX ASSISTANT.SUN Anesthesia Complication Comment: Post-operative progress note Anesthesia: Postop Eval II Evaluation Mental status: Awake and Confused Pain Level: 0 nausea: No Vomiting: No
--- NOTE | 2024-06-17 13:54 | PCM.POSTANE2 ---
Anesthesia Postop Eval I Sum Postop Eval Completion status Anesthesia document: Postop Eval 1 completed: Yes Anesthesia Postop Eval I Summary Anesthesia Postop Eval I Summary: Anesthesia Postop Eval I: Assessment Summary Airway patent Yes 06/17/24 13:39 WHEEL SHOP SUPERVISOR.[email or web address] Spontaneous unlabored Yes 06/17/24 13:39 WHEEL SHOP SUPERVISOR.[email or web address] respirations Mental status Awake,Calm 06/17/24 13:39 WHEEL SHOP SUPERVISOR.[email or web address] nausea No 06/17/24 13:39 WHEEL SHOP SUPERVISOR.SKOBY Vomiting No 06/17/24 13:39 WHEEL SHOP SUPERVISOR.[email or web address] Anesthesia Postop Eval I: Fluid Summary Crystalloid volume administer 2,300 06/17/24 13:39 WHEEL SHOP SUPERVISOR.[email or web address] (ml) Colloids volume administered ( ml) Blood Product volume administered (ml) Total IV fluid infused 2,300 06/17/24 13:39 WHEEL SHOP SUPERVISOR.[email or web address] Anesthesia Postop Eval I: Summary Notes Anesthesia Complication No 06/17/24 13:39 WHEEL SHOP SUPERVISOR.SUN Anesthesia Complication Comment: Post-operative progress note Anesthesia: Postop Eval II Evaluation Mental status: Awake and Confused Pain Level: 0 nausea: No Vomiting: No
--- NOTE | 2024-06-17 13:55 | ANES.CONFIRM ---
Anesthesia: Confirm Documents Multiple Procedures on Account (2) Confirmed Documents: Yes
[2024-06-17] MEDS: Pantoprazole Sodium 40 MG in 0.9% Normal Saline (100mL MB+) 100 ML 330 MG IV ×2 (15:17→21:09)
[2024-06-17 15:50] LABS: Bedside Glucose 185 mg/dL (74-106)
--- NOTE | 2024-06-17 16:31 | OP.PCM_ITS ---
Operative Report (Standard) Operative Information Date of Procedure: 06/17/24 Pre-Operative Diagnosis: Posterior Neck Hematoma Post-Operative Diagnosis: Same Surgery/Procedure Performed: Evacuation of neck hematoma (CPT 35123) life enrichment director: Yes Cellophane Tester: Diane Michelle Tasks completed by certified first assistant: Retracting Type of Anesthesia: General/Supplemental (10 cc of 0.25% bupivucaine with 1:200,000 epinephrine around drains and incision) RN Documented Start/Stop Times: Operation Date: 06/17/24 10:25 Case Time Into Pre-Op 06/17/24 09:29 Out of Pre-Op 06/17/24 11:05 Anesthesia Start 06/17/24 11:08 Into Room 06/17/24 11:08 Procedure Start 06/17/24 11:52 Procedure End 06/17/24 13:15 Anesthesia End 06/17/24 13:31 Out of Room 06/17/24 13:31 Into Recovery 06/17/24 13:35 Out of Recovery 06/17/24 14:45 Procedure Start Time: 11:52 Procedure Stop Time: 13:15 Select all DRAINS/GRAFTS/IMPLANTS that apply: Drains (Two 19 Fr Jakob drains ) Drain details: One is deep to the trapezius and superficial to the paraspinous muscles, the other is superficial to trapezius Estimated Blood Loss: 100 cc Fluids Replaced: 2.5 Liters of NS Specimen collected: Yes Description of specimen(s) removed: Cultures taken of deep space around paraspinous muscle closure after the hematoma was evacuated Description of surgery: CODING COMPLIANCE SPECIALIST SURGEON: Henry Hernandez MD (Orthopedic Spine) INDICATIONS: Dewayne Archer is an 83-year-old male who recently underwent cervical spinal fusion followed by paraspinous muscle flap closure with overlying trapezius muscle advancement on 04 June 2024 for the treatment of cervical spine compression/myelopathy. Postoperatively the course was complicated by a pulmonary embolism on postop day 1 requiring anticoagulation as well as urosepsis requiring transfer to the ICU. He was recently transferred back to the intermediate care floor, but in the past 24 hours his drain output has increased and the swelling of the posterior of his neck is increased. This morning I diagnosed a hematoma on rounds and he is being taken emergently to the operating room for evacuation as the skin is tight and tense. Dr. Hernandez, who is assisting me in the surgery, is in agreement with the care plan and feels that the hematoma needs to be evacuated as well. I spoke with the patient as well as his adult children about the plan of care and they are in agreement. They understand the risks, benefits, and alternatives. PROCEDURE DETAILS: Patient was taken back to the operating room and administered general anesthesia and he was flipped carefully into the prone position with care taken to pad all bony prominences and his face and eyes to protect them. He was prepped and draped in sterile fashion and a proper timeout was performed. Dr. Hernandez was with me during the entirety of the case. We began the procedure by opening the incision superficially with a 10 blade scalpel and immediately there was an approximately 100 cc hematoma beneath the skin. The hematoma appeared to be coming from beneath the trapezius muscles and therefore the trapezius advancement was released by cutting through the PDS suture with scissors. The rest of the hematoma was evacuated and there was no signs of hematoma at the base of the wound, which consisted of the paraspinous muscle advancement flaps. These flaps were therefore kept in place, and exploration was continued no deeper. Dr. Hernandez was in agreement with this plan to leave this repair is intact as there was no bleeding from beneath them. Some active bleeding on the lateral aspect of the paraspinous muscle was not id entified and cauterized with Bovie electrocautery and DeBakey. The wound was irrigated with 3 L of normal saline and cultures were taken from the deep space above the paraspinous muscles. We then performed another round hemostasis and placed a 19 [place] Jakob drain at this level. Raven powder was also applied. We then turned our attention to trapezius muscle advancement for another layer o f closure which was performed with interrupted 0 PDS [id number] sutures. We then performed another round of hemostasis above the trapezius muscle and then placed fibrin glue and Raven powder. Once we are happy with the level of hemostasis, a 19 [place] Jakob drain was then applied at this level. The fascia was closed with interrupted 0 PDS sutures followed by deep 2-0 PDS sutures and 3-0 nylon interrupted horizontal mattress sutures. The patient tolerated the procedure well. An incisional wound VAC was applied. The drains in the VAC holding suction at the end of the case. A c-collar was reapplied. Postoperative Plan: Plastics will continue to follow and change incisional VAC later this week to check on the wound bed. Please continue to strip drains every 4 and empty and record the output carefully. Follow-up wound cultures. Anticipate 3 weeks of incisional wound VAC. Surgical Findings: Hematoma above the trapezius and below the trapezius coming from bleeding along the paraspinous muscles. Complications Complications: No Admit VTE Documentation VTE Mechan Device Prophylaxis: SCD's
[2024-06-17 17:35] LABS: Bedside Glucose 205 mg/dL (74-106)
--- NOTE | 2024-06-17 18:06 | PN.SURG_ITS ---
Subjective Subjective Doing O.K. 6 hours post op. Nursing reports about 10 cc from both drains since being back in the PCU. Family at bedside. Patient following commands (squeezing my hands, makes thumbs up, opens eyes, shakes head yes that pain is controlled). Objective Data Objective Data Vital Signs: Vital Signs Temp Pulse Resp BP Pulse Ox O2 Del Method O2 Flow Rate 96.3 F L 88 15 113/44 L 94 Nasal Cannula 4 06/17/24 17:25 06/17/24 17:25 06/17/24 17:25 06/17/24 17:25 06/17/24 17:25 06/17/24 17:25 06/17/24 17:25 FiO2 30 06/17/24 10:01 Oxygen Flow Rate (L/min) 4 Oxygen Delivery Method Nasal Cannula Weight: 220 lb 7.396 oz Body Mass Index (BMI) 34.5 Intake & Output: Intake and Output for Last 24 Hours 06/15/24 06/16/24 06/17/24 23:59 23:59 23:59 Intake Total 1994 / 2044 893.0 / 893.0 Output Total 955 / 955 1525 / 1525 1160 / 1160 Balance 1040 / 1040 520 / 520 -267.0 / -267.0 Medical Nutrition Assessment Dietitian: Malnutrition Criteria Met Start: 06/16/24 10:42 Freq: Status: Active Protocol: Document 06/16/24 10:43 SB (Rec: 06/16/24 10:43 SB [id number]) Nutrition Malnutrition Evidence of Malnutrition Exists Yes Malnutrition (severe): Acute Illness/Injury Evidenced By Suboptimal Energy Intake ( Severe),Weight Loss (Severe) Intake Problem Inadequate Oral Intake Etiology related to mental status Signs/Symptoms as evidenced by NPO status. Status Active Problem Clinical Problem Acute Disease or Injury Related Malnutrition Etiology severe related to inadequate oral intake Signs/Symptoms as evidenced by PO meeting <50 % of estimated nutrition needs x 1 week, 7% unintentional weight loss x 2 weeks, and 2+ pitting edema in L arm. Status Active Problem Altered Nutrient-Related Laboratory Values Etiology related to endocrine dysfunction/diabetes Signs/Symptoms as evidenced by A1C 11% and glucose 254 Status Active Problem Recommendation Dietitian Recommendations/Changes Recommend advanced diet as tolerated to liberal regular diet d/t signs and symptoms of malnutrition, per FLOWER BUNCHER OR PICKER consistency/texture recommendations. Will d/c glucerna shake d/t NPO. Recommend initiating nutrition support in 24-48 hours if pt is still NPO. If nutrition support is initiated recommend Jevity 1. 5Cal goal rate 50ml/hr with 130ml flushes every 4 hours to provide 1800 calories, 76g protein, and 1692ml total fluid/day. Wound start at 10ml /hr d/t risk of refeeding syndrome and increase by 10ml every 8-12 hours as tolerated until goal rate is achieved. Will monitor weight, as available. Reviewed and approved by Jeanna Seals RDN, LD. Lab / Micro Data 06/17/24 06:45 06/17/24 06:45 Labs: Laboratory Results - last 24 hr 06/16/24 20:55: POC Glucose 238 H 06/16/24 23:51: POC Glucose 238 H 06/17/24 05:53: POC Glucose 237 H 06/17/24 06:45: WBC 19.3 H, RBC 3.02 L, Hgb 8.6 L, Hct 27.2 L, MCV 90.1, MCH 28.5, MCHC 31.6 L, RDW Std Deviation 48.4 H, RDW Coeff of Tyesha 14.9 H, Plt Count 296, MPV 10.5, Sodium 145, Potassium 3.8, Chloride 116 H, Carbon Dioxide 24.0, Anion Gap 5, BUN 59 H, Creatinine 1.99 H, Estim Creat Clear Calc 31.13, Est GFR (MDRD) Af Amer 41 L, Est GFR (MDRD) Non-Af 34 L, BUN/Creatinine Ratio 29.6 H, G lucose 250 H, Calcium 8.2 L 06/17/24 15:04: POC Glucose 185 H 06/17/24 17:15: POC Glucose 205 H Micro: Microbiology 06/12/24 08:30 Blood Culture (Wb) - Anticubital Right Blood Culture - Final No growth in 5 days. 06/11/24 08:30 Urine Catheter - Catheter Urine Culture - Final Klebsiella oxytoca Radiography Diagnostic Testing: Radiology Impression Cervical Spine X-Ray 06/17/24 06:00 IMPRESSION: Status post recent transpedicular fixation of the cervical spine with a surgical drain. Electronically Signed: Alfa Burns MD at 8:45 EST , Cervical Spine CT 06/17/24 07:25 IMPRESSION: Status post recent posterior decompression and fixation with a surgical drain and 7 cm fluid collection in the posterior paraspinous musculature. Electronically Signed: Alfa Burns MD at 10:19 EST , Physical Exam Narrative NECK Incisional VAC holding suction. Drains strip well. They're SS, no clot. Neck is soft, no signs of hematoma. Chest inspection of chest normal Resp normal respiratory effort Resp Narrative: 4 liters via NC, saturations in the mid 90s. Cardio regular rate Extremity Extremity Narrative: SCDs on and activated. Neuro moves all extremities Neuro Narrative: Moving on command (follows commands). 5/5 security compliance specialist strength Assessment & Plan Assessment/Plan (1) Hematoma: PLAN: Doing O.K. now at post-op check. Talked to primary team about feeding tube, and they're planning to place for supplemental nutrition. Blood thinner obligatory (pulmonary emboli) and will continue, but currently no signs of bleeding. PSU will follow closely. Charges/Coding Procedures Integumentary [id number]: [id number] Global Visit
[2024-06-17] MEDS: Insulin Glargine-YFGN 100 UNIT/ML Pen 20 UNIT SC (21:04)
[2024-06-17] MEDS: Enoxaparin 100 MG/ML Syringe SC (21:09)
[2024-06-17 21:56] LABS: Bedside Glucose 204 mg/dL (74-106)
[2024-06-18] VITALS (7 sets, daily range): BP systolic 96–140; BP diastolic 36–58; PULSE 86–96; RESP 15–16; TEMP 36.6–37.1; O2SAT 94–100; BMI 34.9
[2024-06-18 00:03] LABS: Bedside Glucose 179 mg/dL (74-106)
[2024-06-18 05:35] LABS: Bedside Glucose 159 mg/dL (74-106)
[2024-06-18 06:03] LABS: Hematocrit 23.2 % (40-54); Hemoglobin 7.2 g/dL (13.0-16.5); Mean Corpuscular Hgb 28.3 pg (27.0-32.0); Mean Corpuscular Volume 91.3 fL (80-94); Mean Platelet Vol. 10.8 fl (6.2-12.0); Platelet Count 255 K/mm3 (150-450); RBC Distribution Width CV 15.6 % (11.6-14.6); RBC Distribution Width SD 49.9 fl (35.1-43.9); Red Blood Count 2.54 M/mm3 (4.6-6.2); White Blood Count 18.7 K/mm3 (4.4-11.0)
[2024-06-18 06:28] LABS: Anion Gap 5 (5-15); BUN 57 mg/dL (7-18); BUN/Creat Ratio 29.5 RATIO (10-20); Chloride 120 mmol/L (98-107); Creatinine, Serum 1.93 mg/dL (0.70-1.30); EST Glomerular Filtration Rate 35 mL/min (>60); Est Glom Filt Rate - Afr Amer 43 mL/min (>60); Estimated Creatinine Clearance 32.31 ml/min; Glucose 214 mg/dL (74-106); Potassium 4.3 mmol/L (3.5-5.1); Sodium Level 147 mmol/L (136-145)
--- NOTE | 2024-06-18 07:47 | PN_ITS ---
Progress Note Alert and oriented this morning. Follows commands and answering questions. Moving all four extremities. Pain controlled. Physical Exam Narrative NECK Incisional VAC holding suction. Drains strip well. They're SS, no clot. Neck is soft, no signs of hematoma. Chest inspection of chest normal Resp normal respiratory effort Resp Narrative: 2 liters via NC, saturations in the mid 90s. Cardio regular rate Extremity Extremity Narrative: SCDs on and activated. Neuro moves all extremities Neuro Narrative: Moving on command (follows commands). 5/5 armature balancer strength Assessment & Plan Assessment/Plan (1) Status post cervical spinal fusion: PLAN: No signs of bleeding/hematoma reaccumulation this morning. Talked to primary team about feeding tube, and they're planning to place for supplemental nutrition. Blood thinner obligatory (pulmonary emboli) and will continue, but currently no signs of bleeding. Recommend transfusion when <7 (7.2 this morning, but stable VS). Please continue tight glucose control for wound healing. Incisional VAC to be changed on Monday, 21 Jun 2024. Continue drain care. Procedures Integumentary [id number]: [id number] Global Visit
[2024-06-18] MEDS: Enoxaparin 100 MG/ML Syringe SC ×2 (08:01→21:40)
[2024-06-18] MEDS: Pantoprazole Sodium 40 MG in 0.9% Normal Saline (100mL MB+) 100 ML 330 MG IV ×2 (08:05→21:40)
--- NOTE | 2024-06-18 10:23 | WOUNDNOTE ---
Pt resting in bed. nursing states they tried to get patient to the chair, but legs were too weak. pt was able to answer questions appropriately. wound VAC dressing intact with good seal noted at 125mmHg low continuous suction. YEHUDA drains stripped. small amount of drainage noted in drains at this time. will continue to follow.
--- NOTE | 2024-06-18 11:06 | PCM.PN.HOSP ---
Reason for Visit Reason for Visit: Diagnoses Hypothyroidism, unspecified (06/04/24) Type 2 diabetes mellitus with hyperglycemia (06/04/24) Obesity, unspecified (06/04/24) Hyperlipidemia, unspecified (06/04/24) Other specified diseases of spinal cord (06/04/24) Disease of spinal cord, unspecified (06/04/24) Essential (primary) hypertension (06/04/24) Cerebral infarction, unspecified (06/04/24) Acute respiratory failure with hypoxia (06/04/24) Unspecified osteoarthritis, unspecified site (06/04/24) Other injury of unspecified body region, initial encounter (06/04/24) Arthrodesis status (06/04/24) Subjective Subjective Saw patient at bedside this morning. Patient was more awake and alert appearing today than yesterday. Per nursing staff they were able to get him up to the edge of the bed but he had significant leg weakness and was not able to stand. Speech therapy worked with the patient today and unfortunately he was considered too weak to do a barium swallow today. Patient for me did not his head yes when asked if he was feeling hungry. He denied any pain or discomfort. Discussed with patient's son over the phone earlier this afternoon. He and patient have been in agreement that if needed, would plan to place a feeding tube for nutrition if the patient could not take in food safely. GI consulted for placement of Dobbhoff feeding tube. Objective Data Objective Data Vital Signs: Vital Signs Temp Pulse Resp BP Pulse Ox O2 Del Method O2 Flow Rate 98.3 F 96 16 104/36 L 98 Nasal Cannula 2 06/18/24 08:26 06/18/24 08:26 06/18/24 08:26 06/18/24 08:26 06/18/24 08:26 06/18/24 08:26 06/18/24 08:26 FiO2 30 06/17/24 10:01 Oxygen Flow Rate (L/min) 2 Oxygen Delivery Method Nasal Cannula Weight: 101.3 kg Body Mass Index (BMI) 34.9 Intake & Output: Intake and Output for Last 24 Hours 06/16/24 06/17/24 06/18/24 23:59 23:59 23:59 Intake Total 2045 / 2045 1003.0 / 1003.0 110 / 110 Output Total 1525 / 1525 1178 / 1178 414 / 414 Balance 520 / 520 -175.0 / -175.0 -304 / -304 Medical Nutrition Assessment Dietitian: Malnutrition Criteria Met Start: 06/16/24 10:42 Freq: Status: Active Protocol: Document 06/16/24 10:43 SB (Rec: 06/16/24 10:43 SB [id number]) Nutrition Malnutrition Evidence of Malnutrition Exists Yes Malnutrition (severe): Acute Illness/Injury Evidenced By Suboptimal Energy Intake ( Severe),Weight Loss (Severe) Intake Problem Inadequate Oral Intake Etiology related to mental status Signs/Symptoms as evidenced by NPO status. Status Active Problem Clinical Problem Acute Disease or Injury Related Malnutrition Etiology severe related to inadequate oral intake Signs/Symptoms as evidenced by PO meeting <50 % of estimated nutrition needs x 1 week, 7% unintentional weight loss x 2 weeks, and 2+ pitting edema in L arm. Status Active Problem Altered Nutrient-Related Laboratory Values Etiology related to endocrine dysfunction/diabetes Signs/Symptoms as evidenced by A1C 11% and glucose 254 Status Active Problem Recommendation Dietitian Recommendations/Changes Recommend advanced diet as tolerated to liberal regular diet d/t signs and symptoms of malnutrition, per WEBSPHERE PORTAL DEVELOPER consistency/texture recommendations. Will d/c glucerna shake d/t NPO. Recommend initiating nutrition support in 24-48 hours if pt is still NPO. If nutrition support is initiated recommend Jevity 1. 5Cal goal rate 50ml/hr with 130ml flushes every 4 hours to provide 1800 calories, 76g protein, and 1692ml total fluid/day. Wound start at 10ml /hr d/t risk of refeeding syndrome and increase by 10ml every 8-12 hours as tolerated until goal rate is achieved. Will monitor weight, as available. Reviewed and approved by Jeanna Seals RDN, LD. Lab / Micro Data 06/18/24 05:39 06/18/24 05:39 Labs: Laboratory Results - last 24 hr 06/17/24 15:04: POC Glucose 185 H 06/17/24 17:15: POC Glucose 205 H 06/17/24 20:20: POC Glucose 204 H 06/17/24 23:40: POC Glucose 179 H 06/18/24 05:10: POC Glucose 159 H 06/18/24 05:39: WBC 18.7 H, RBC 2.54 L, Hgb 7.2 L, Hct 23.2 L, MCV 91.3, MCH 28.3, MCHC 31.0 L, RDW Std Deviation 49.9 H, RDW Coeff of Tyesha 15.6 H, Plt Count 255, MPV 10.8, Sodium 147 H, Potassium 4.3, Chloride 120 H, Carbon Dioxide 22.0, Anion Gap 5, BUN 57 H, Creatinine 1.93 H, Estim Creat Clear Calc 32.31, Est GFR (MDRD) Af Amer 43 L, Est GFR (MDRD) Non-Af 35 L, BUN/Creatinine Ratio 29.5 H, Glucose 214 H, Calcium 8.0 L 06/18/24 07:37: Blood Type O POSITIVE, Antibody Screen NEGATIVE Micro: Microbiology 06/17/24 12:51 Wound - Neck Wound Culture - Preliminary No growth-Final to follow 06/12/24 08:30 Blood Culture (Wb) - Anticubital Right Blood Culture - Final No growth in 5 days. 06/11/24 08:30 Urine Catheter - Catheter Urine Culture - Final Klebsiella oxytoca Physical Exam Const Constitutional Narrative: Elderly male, fatigued appearing but mentation improved from previous days, laying back in bed with neck brace in place, nodding yes or no to questions but still not able to verbalize anything. HEENT normocephalic, head/scalp atraumatic, hearing grossly normal bilaterally and nasal mucous membranes and turbinates normal Eyes PERRL, EOMs intact bilaterally and conjunctivae normal Neck Neck Narrative: Neck brace in place. Wound VAC in place with multiple drains noted with bloody to serosanguineous output. Lymph Lymphatic: no lymphadenopathy noted Chest inspection of chest normal Resp normal respiratory effort, no use of accessory muscles and clear to auscultation bilaterally Cardio regular rate, regular rhythm, no murmurs and peripheral pulses 2+ throughout GI normal to inspection, nondistended, normoactive bowel sounds, soft to palpation, non-tender and non-distended Extremity normal to inspection and no pedal edema Assessment & Plan Assessment/Plan (1) Acute hypoxemic respiratory failure: (2) Status post cervical spinal fusion: PLAN: Plan Patient is an 83-year-old male who presented to [facility] ED on 06/04/2024 from the TCU for planned cervical spine procedure. Hospital course complicated by bilateral pulmonary emboli with right heart strain, sepsis secondary to Klebsiella UTI, KELVIN and metabolic encephalopathy. 1. Acute hypoxic respiratory failure secondary to bilateral pulmonary emboli with right heart strain, improving ? Plant Breeder Scientist followed. Had postoperative acute respiratory failure on 06/05 requiring transfer to the ICU. CTA chest showed bilateral PE with right heart strain. Echo 06/06 showed EF 60%, severely dilated RV, moderately decreased RV systolic function. Continue treatment with therapeutic Lovenox, plan is to transition to Eliquis once wound VAC changes are complete on 06/21. Weaned back to room air at rest. Continue to monitor. 2. 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 Orthopedic surgery and plastic surgery following. Patient with initial C3-T1 fusion surgery with skin flap coverage on 06/04. Unfortunately had increasing serosanguineous to bloody output from the wound VAC in recent days along with worsening swelling near the incision site. CT C-spine on 06/17 showed a new 7 cm fluid collection in the posterior paraspinous musculature consistent with a postop hematoma. S/p incision and drainage with possible closure of the hematoma on 06/17, with replacement of drain and wound VAC. Cervical collar back in place. Will continue to follow closely and appreciate orthopedic and plastic surgery assistance. 3. Acute metabolic encephalopathy, improving ? Speech therapy following. Unclear etiology but suspected this was in part due to sedating medications along with overall generalized weakness. Patient more alert on 06/18 but unfortunately remains unable to take in p.o. safely. GI consulted for Dobbhoff tube placement and will plan to initiate tube feeds after placement. Continue to avoid sedating medications as able. 4. Sepsis secondary to Klebsiella UTI ? Urine culture 06/11 grew greater than 100,000 Klebsiella. Blood cultures with no growth. Blood pressure improved with IV fluid resuscitation. Completed IV ceftriaxone for 7-day course total on 06/17. 5. KELVIN ? Baseline creatinine appears to be around 1.2. Creatinine worsened post procedure likely due to hypotension in setting of bilateral PE and UTI. Peak of 2.49 on 06/11. Now stable around 1.7-1.9. Adequate urine output. Continue to monitor daily BMP and urine output. 6. Anemia ? Hemoglobin slowly down trended during hospitalization suspect due to blood loss and drainage from wound VAC and lab draws. Did have 1 apparent dark stool on 06/15 but has had no further stools since then. Most recent hemoglobin 7.2 on 06/18, decreased from 8.6 on previous day presume secondary to blood loss during procedure. Continue to monitor CBC daily and transfuse for hemoglobin less than 7. Continue IV PPI twice daily for now. 7. Hypernatremia ? Suspect due to poor p.o. intake. Most recent sodium 147 on 06/18. Continue maintenance D5W while n.p.o. status. 8. Urinary retention ? Had Jeffrey catheter placed early in hospitalization due to retention. Continue Jeffrey at this time. Chronic medical conditions: ? Class II obesity: BMI 35 on admit. Complicates hospital course, care and prognosis. ? Type 2 diabetes mellitus: Continue reduced regimen from home of Lantus 20 units at night with sliding scale insulin every 6 hours as needed while n.p.o. Adjust regimen as needed. ? Hypertension: Holding home atenolol, losartan and Jardiance. ? Hyperlipidemia: Continue home statin. ? Hypothyroidism: Continue Synthroid. DVT prophylaxis: Not indicated, on therapeutic Lovenox CODE STATUS: DNR CCA, DNI Expected disposition: TBD Total clinical time spent by myself addressing the patient's medical issues, reviewing all the data, and collaborating with patient's care team: 35 minutes. Charges/Coding Visit Charges Inpatient E&M: 62328 Subs Hosp L2
[2024-06-18 11:53] LABS: Bedside Glucose 174 mg/dL (74-106)
--- NOTE | 2024-06-18 14:25 | PN.ORTHO_ITS ---
Subjective Subjective POD 1 hematoma evacuation. Follows commands and answering questions with yes and no answers. Moving all four extremities. Pain controlled. Patient was supine in bed with head elevated. Objective Data Objective Data Vital Signs: Vital Signs Temp Pulse Resp BP Pulse Ox O2 Del Method O2 Flow Rate 98.6 F 95 16 131/52 H 100 Nasal Cannula 2 06/18/24 11:38 06/18/24 11:38 06/18/24 11:38 06/18/24 11:38 06/18/24 11:38 06/18/24 14:05 06/18/24 14:05 FiO2 30 06/17/24 10:01 Oxygen Flow Rate (L/min) 2 Oxygen Delivery Method Nasal Cannula Weight: 223 lb 5.252 oz Body Mass Index (BMI) 34.9 Intake & Output: Intake and Output for Last 24 Hours 06/16/24 06/17/24 06/18/24 23:59 23:59 23:59 Intake Total 2045 / 2045 1003.0 / 1003.0 110 / 110 Output Total 1525 / 1525 1178 / 1178 739 / 739 Balance 520 / 520 -175.0 / -175.0 -629 / -629 Medical Nutrition Assessment Dietitian: Malnutrition Criteria Met Start: 06/16/24 10:42 Freq: Status: Active Protocol: Document 06/16/24 10:43 SB (Rec: 06/16/24 10:43 SB [id number]) Nutrition Malnutrition Evidence of Malnutrition Exists Yes Malnutrition (severe): Acute Illness/Injury Evidenced By Suboptimal Energy Intake ( Severe),Weight Loss (Severe) Intake Problem Inadequate Oral Intake Etiology related to mental status Signs/Symptoms as evidenced by NPO status. Status Active Problem Clinical Problem Acute Disease or Injury Related Malnutrition Etiology severe related to inadequate oral intake Signs/Symptoms as evidenced by PO meeting <50 % of estimated nutrition needs x 1 week, 7% unintentional weight loss x 2 weeks, and 2+ pitting edema in L arm. Status Active Problem Altered Nutrient-Related Laboratory Values Etiology related to endocrine dysfunction/diabetes Signs/Symptoms as evidenced by A1C 11% and glucose 254 Status Active Problem Recommendation Dietitian Recommendations/Changes Recommend advanced diet as tolerated to liberal regular diet d/t signs and symptoms of malnutrition, per LAW ENFORCEMENT INSTRUCTOR consistency/texture recommendations. Will d/c glucerna shake d/t NPO. Recommend initiating nutrition support in 24-48 hours if pt is still NPO. If nutrition support is initiated recommend Jevity 1. 5Cal goal rate 50ml/hr with 130ml flushes every 4 hours to provide 1800 calories, 76g protein, and 1692ml total fluid/day. Wound start at 10ml /hr d/t risk of refeeding syndrome and increase by 10ml every 8-12 hours as tolerated until goal rate is achieved. Will monitor weight, as available. Reviewed and approved by Jeanna Seals RDN, MANISHA. Lab / Micro Data 06/18/24 05:39 06/18/24 05:39 Labs: Laboratory Results - last 24 hr 06/17/24 15:04: POC Glucose 185 H 06/17/24 17:15: POC Glucose 205 H 06/17/24 20:20: POC Glucose 204 H 06/17/24 23:40: POC Glucose 179 H 06/18/24 05:10: POC Glucose 159 H 06/18/24 05:39: WBC 18.7 H, RBC 2.54 L, Hgb 7.2 L, Hct 23.2 L, MCV 91.3, MCH 28.3, MCHC 31.0 L, RDW Std Deviation 49.9 H, RDW Coeff of Tyesha 15.6 H, Plt Count 255, MPV 10.8, Sodium 147 H, Potassium 4.3, Chloride 120 H, Carbon Dioxide 22.0, Anion Gap 5, BUN 57 H, Creatinine 1.93 H, Estim Creat Clear Calc 32.31, Est GFR (MDRD) Af Amer 43 L, Est GFR (MDRD) Non-Af 35 L, BUN/Creatinine Ratio 29.5 H, G lucose 214 H, Calcium 8.0 L 06/18/24 07:37: Blood Type O POSITIVE, Antibody Screen NEGATIVE 06/18/24 11:18: POC Glucose 174 H Micro: Microbiology 06/17/24 12:51 Wound - Neck Wound Culture - Preliminary No growth-Final to follow 06/12/24 08:30 Blood Culture (Wb) - Anticubital Right Blood Culture - Final No growth in 5 days. 06/11/24 08:30 Urine Catheter - Catheter Urine Culture - Final Klebsiella oxytoca Physical Exam Narrative Patient able to move all 4 extremities. Unable to follow command to test consumer experience consultant strength. Const alert and no apparent distress Assessment & Plan Assessment/Plan (1) Hematoma: PLAN: Plan Hemovac VAC managed per Dr. Chu. Patient appears alert today and answered questions. Pain well managed. Postop day 14 status post C3-T1 fusion. Seems hemodynamically stable, maintaining saturation. Will continue to follow.
[2024-06-18 15:12] LABS: Pathologist Review Reviewed
--- NOTE | 2024-06-18 16:38 | CHAPLAIN ---
Type of Pastoral Visit ___ Initial Visit _x__ Follow-up Visit ___ On-call Visit ___ General Patient Visit ___ Spiritual Assessment ___ Family Conference ___ Bereavement ___ Rapid Response ___ Code Blue ___ Other (describe below) Pastoral Care Referral From ___ Patient _x__ Family ___ Nurse ___ Physician ___ Fly Finisher ___ Finisher Cold Rolling ___ Other (describe below) Sacrament/Intervention ___ Active listening ___ Anointing ___ Scientology ___ Bereavement ___ Communion ___ Ann exploration ___ ___ Life review ___ Prayer ___ Reconciliation ___ Sacrament of Sick _x__ Supportive presence ___ Wedding ___ Other (describe below) Pastoral Comments follow up visit to this patient; pt appears to be sleeping but opens his eyes to his name; pt is able to give minimal one word answers to the questions asked; pt gives appropriate answers but does not engage in a conversation and keeps his eyes closed most of the time; talked to patient about his admission to the hospital and about the weather to try and engage the patient;
[2024-06-18] MEDS: Insulin Lispro 100 UNIT/ML INSULN.PEN SC (16:55)
[2024-06-18 17:14] LABS: Bedside Glucose 213 mg/dL (74-106)
[2024-06-18 22:26] LABS: Bedside Glucose 175 mg/dL (74-106)
[2024-06-19] VITALS (8 sets, daily range): BP systolic 103–131; BP diastolic 47–73; PULSE 81–102; RESP 14–20; TEMP 36.4–36.9; O2SAT 93–99; BMI 37.1
[2024-06-19 06:21] LABS: Hematocrit 22.5 % (40-54); Hemoglobin 6.8 g/dL (13.0-16.5); Mean Corp Hgb Conc 30.2 g/dL (32-36); Mean Corpuscular Volume 92.6 fL (80-94); Mean Platelet Vol. 10.8 fl (6.2-12.0); Platelet Count 270 K/mm3 (150-450); RBC Distribution Width CV 16.2 % (11.6-14.6); RBC Distribution Width SD 51.3 fl (35.1-43.9); Red Blood Count 2.43 M/mm3 (4.6-6.2); White Blood Count 16.8 K/mm3 (4.4-11.0)
[2024-06-19] MEDS: Insulin Lispro 100 UNIT/ML INSULN.PEN SC ×3 (06:27→16:30)
[2024-06-19 06:54] LABS: Anion Gap 6 (5-15); BUN 55 mg/dL (7-18); BUN/Creat Ratio 28.8 RATIO (10-20); Calcium,Total 7.9 mg/dL (8.5-10.1); Chloride 121 mmol/L (98-107); Creatinine, Serum 1.91 mg/dL (0.70-1.30); EST Glomerular Filtration Rate 36 mL/min (>60); Est Glom Filt Rate - Afr Amer 43 mL/min (>60); Estimated Creatinine Clearance 33.68 ml/min; Glucose 224 mg/dL (74-106); Potassium 4.3 mmol/L (3.5-5.1); Sodium Level 147 mmol/L (136-145)
[2024-06-19 06:55] LABS: Bedside Glucose 210 mg/dL (74-106)
--- NOTE | 2024-06-19 08:06 | PCM.PN.BLA ---
Progress Note Pain controlled tis morning. Conversing with me and following commands. Failed speech therapy yesterday (d[place]ot[place]) so getting NG tube with GI today. Physical Exam Narrative NECK Incisional VAC holding suction. Drains strip well. They're SS, no clot. The output is appropriate. Neck is soft, no signs of hematoma. Const alert Chest inspection of chest normal Resp normal respiratory effort Resp Narrative: 2 liters via NC, saturations in the mid 90s. Cardio regular rate Extremity Extremity Narrative: SCDs on and activated. Moving all 4 extremities and following commands Gave thumbs up and gripped my hand bilaterally, and he plantarflexed for me . Sensation is intact to light touch in all 4 extremities. Neuro moves all extremities Neuro Narrative: Moving on command (follows commands). 5/5 lip and gate builder strength Assessment & Plan Assessment/Plan (1) Status post cervical spinal fusion: PLAN: No signs of bleeding/hematoma reaccumulation this morning. Talked to primary team about feeding tube, and they're planning to place for supplemental nutrition. Blood thinner obligatory (pulmonary emboli) and will continue, but currently no signs of bleeding. Recommend transfusion when <7 (6.8 this morning, but stable VS). Agree with 1 unit. Please continue tight glucose control for wound healing. Incisional VAC to be changed on , 20 Jun 2024. Continue drain care. Procedures Integumentary 111xxx-113xx: [id number] Global Visit
[2024-06-19] MEDS: Pantoprazole Sodium 40 MG in 0.9% Normal Saline (100mL MB+) 100 ML 330 MG IV ×2 (08:34→23:02)
[2024-06-19] MEDS: 0.9% Saline Lock 10 ML Syringe IV ×2 (08:35→23:03)
[2024-06-19] MEDS: Acetaminophen 650 MG Suppository RC ×3 (08:35→23:03)
[2024-06-19] MEDS: Enoxaparin 100 MG/ML Syringe SC ×2 (09:11→23:00)
[2024-06-19] MEDS: 0.9% Normal Saline (100mL Bag) 100 ML 15 ML IV (09:11)
--- NOTE | 2024-06-19 09:15 | NURSING ---
eufemia drains stripped as per order
--- NOTE | 2024-06-19 09:25 | NURSING ---
humidification applied to oxygen.
--- NOTE | 2024-06-19 09:33 | WOUNDNOTE ---
wound VAC dressing intact with good seal noted. Discussed with Dr Chu. plan is for VAC change tomorrow to assess incision.
--- NOTE | 2024-06-19 10:22 | PCM.PN.ORT ---
Subjective Subjective Seen with. Dr. Hernandez. POD 2 hematoma evacuation. Follows commands and answering questions with yes and no answers, does not answer open ended questions. Patient kept eyes closed during visit. Moving all four extremities. Pain controlled. Patient was supine in bed with head elevated. Objective Data Objective Data Vital Signs: Vital Signs Temp Pulse Resp BP Pulse Ox O2 Del Method O2 Flow Rate 98.1 F 81 16 121/52 H 95 Nasal Cannula 3 06/19/24 09:23 06/19/24 09:23 06/19/24 09:23 06/19/24 09:23 06/19/24 09:23 06/19/24 09:23 06/19/24 09:23 FiO2 30 06/17/24 10:01 Oxygen Flow Rate (L/min) 3 Oxygen Delivery Method Nasal Cannula Weight: 237 lb 3.478 oz Body Mass Index (BMI) 37.1 Intake & Output: Intake and Output for Last 24 Hours 06/17/24 06/18/24 06/19/24 23:59 23:59 23:59 Intake Total 1003.0 / 1003.0 220 / 220 110.5 / 110.5 Output Total 1178 / 1178 1119 / 1169 775 / 775 Balance -175.0 / -175.0 -899 / -949 -664.5 / -664.5 Medical Nutrition Assessment Dietitian: Malnutrition Criteria Met Start: 06/16/24 10:42 Freq: Status: Active Protocol: Document 06/16/24 10:43 SB (Rec: 06/16/24 10:43 SB [id number]) Nutrition Malnutrition Evidence of Malnutrition Exists Yes Malnutrition (severe): Acute Illness/Injury Evidenced By Suboptimal Energy Intake ( Severe),Weight Loss (Severe) Intake Problem Inadequate Oral Intake Etiology related to mental status Signs/Symptoms as evidenced by NPO status. Status Active Problem Clinical Problem Acute Disease or Injury Related Malnutrition Etiology severe related to inadequate oral intake Signs/Symptoms as evidenced by PO meeting <50 % of estimated nutrition needs x 1 week, 7% unintentional weight loss x 2 weeks, and 2+ pitting edema in L arm. Status Active Problem Altered Nutrient-Related Laboratory Values Etiology related to endocrine dysfunction/diabetes Signs/Symptoms as evidenced by A1C 11% and glucose 254 Status Active Problem Recommendation Dietitian Recommendations/Changes Recommend advanced diet as tolerated to liberal regular diet d/t signs and symptoms of malnutrition, per MANAGER VAN consistency/texture recommendations. Will d/c glucerna shake d/t NPO. Recommend initiating nutrition support in 24-48 hours if pt is still NPO. If nutrition support is initiated recommend Jevity 1. 5Cal goal rate 50ml/hr with 130ml flushes every 4 hours to provide 1800 calories, 76g protein, and 1692ml total fluid/day. Wound start at 10ml /hr d/t risk of refeeding syndrome and increase by 10ml every 8-12 hours as tolerated until goal rate is achieved. Will monitor weight, as available. Reviewed and approved by Jeanna Seals RDN, MANISHA. Lab / Micro Data 06/19/24 05:43 06/19/24 05:43 Labs: Laboratory Results - last 24 hr 06/15/24 06:39: Diff Path Review Reviewed 06/18/24 07:37: Crossmatch See Detail 06/18/24 11:18: POC Glucose 174 H 06/18/24 16:54: POC Glucose 213 H 06/18/24 21:38: POC Glucose 175 H 06/19/24 05:43: WBC 16.8 H, RBC 2.43 L, Hgb 6.8 L, Hct 22.5 L, MCV 92.6, MCH 28.0, MCHC 30.2 L, RDW Std Deviation 51.3 H, RDW Coeff of Tyesha 16.2 H, Plt Count 270, MPV 10.8, Sodium 147 H, Potassium 4.3, Chloride 121 H, Carbon Dioxide 20.0 L, Anion Gap 6, BUN 55 H, Creatinine 1.91 H, Estim Creat Clear Calc 33.68, Est GFR (MDRD) Af Amer 43 L, Est GFR (MDRD) Non-Af 36 L, BUN/Creatinine Ratio 28.8 H, Glucose 224 H, Calcium 7.9 L 06/19/24 06:23: POC Glucose 210 H Micro: Microbiology 06/17/24 12:51 Wound - Neck Gram Stain - Final 06/17/24 12:51 Wound - Neck Wound Culture - Preliminary 06/17/24 12:51 Wound - Neck Anaerobic Culture - Preliminary No growth in 48 hours. 06/12/24 08:30 Blood Culture (Wb) - Anticubital Right Blood Culture - Final No growth in 5 days. 06/11/24 08:30 Urine Catheter - Catheter Urine Culture - Final Klebsiella oxytoca Physical Exam Narrative Patient able to move all 4 extremities. Followed simple commands raise arms and test catering staff member strength. Const alert and no apparent distress Assessment & Plan Assessment/Plan (1) Hematoma: PLAN: Plan Seems hemodynamically stable, maintaining saturation. Postop day 14 status post C3-T1 fusion. Hemovac VAC managed per Dr. Chu. Unclear as to why he is not responsive, he is not on any sedatives. Appreciate medicine, plastic surgery comanagement. Will continue to follow. Charges/Coding Visit Charges Inpatient E&M: 24435 Subs Hosp L2
--- NOTE | 2024-06-19 11:39 | EX.PCM.CON.G ---
HPI Consult Data Date of Consult: 06/19/24 HPI Narrative Reason for Consultation: Malnutrition HPI Narrative: PHILLIP ANGEL, is a 83 YO M with a past medical history of osteoarthritis, remote stroke, hypothyroidism, hyperlipidemia, diabetes mellitus type 2 uncontrolled, nephrolithiasis morbid obesity and hypertension who presented to the emergency department at [facility] on 05/28/2024 complaining of weakness and numbness in the right upper extremity/hand. CT brain showed moderate cerebral atrophy and areas of decreased attenuation within the white matter tracts of the supratentorial brain consistent with microvascular disease. It was otherwise unremarkable and there was no evidence of intracranial hemorrhage or findings consistent with an his acute ischemic infarct. [facility] was consulted from the ER. His NIHSS score was 2. 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 The neurologist recommended a stat MR a of the head and neck to evaluate for any large vessel occlusion. MRI showed no evidence of acute or subacute ischemic infarct or acute intracranial abnormality. There was an old lacunar cystic infarct in the posterior aspect of the left superior frontal gyrus. MRA of the neck showed less than 50% stenosis of the left internal carotid artery and approximately 50% stenosis of the right internal carotid artery. MRA of the head showed no acute findings in the arteries of the head/brain. He was admitted to the hospitalist service. On follow up following the completion of the MRI brain the neurologist felt the sx were more likely related to cervical spine issues. MRI of the neck was recommended. MRI of the neck showed intramedullary spinal cord signal abnormality present from the level of C3-C4 through level C6-C7. There was associated volume loss in the spinal cord. There was compression of the spinal cord at multiple levels. There was extensive degenerative change in the cervical spine with multilevel spinal canal and neuroforaminal stenosis. The case was discussed with Dr. Gaspar who recommended dexamethasone 8 mg 3 times daily and a soft collar. The patient was unsure if he would want to undergo any surgery for cervical canal stenosis. Patient had a had a C3-T1 fusion surgery with skin flap coverage on 06/04. Unfortunately had increasing serosanguineous to bloody output from the wound VAC in recent days along with worsening swelling near the incision site. CT C-spine on 06/17 showed a new 7 cm fluid collection in the posterior paraspinous musculature consistent with a postop hematoma. S/p incision and drainage with possible closure of the hematoma on 06/17, with replacement of drain and wound VAC. He also developed new pulmonary embolisms while in the hospital. I was consulted due to protein, nutrition for placement of Dobbhoff tube. FORMERLY [facility], [facility] Medical History Abrasion Insulin dependent diabetes mellitus Thyroid disease Diabetes Non-smoker History of edema Nephrolithiasis Uncontrolled diabetes mellitus Lactose intolerance Debility Bilateral edema of lower extremity Osteoarthritis Stroke/cerebrovascular accident Hypothyroid High cholesterol Diabetes Hypertension Home Medications ?Medication ?Instructions ?Recorded ?Last Taken ?Type aspirin 325 mg tablet 325 mg PO DAILY@0800 HEALTH 08/20/16 05/31/24 History MAINTENANCE atenolol 25 mg tablet 25 mg PO QHS BP 08/20/16 11/19/23 22:55 History atorvastatin 40 mg tablet 40 mg PO QHS CHOLESTEROL 08/20/16 05/30/24 History levothyroxine 75 mcg tablet 75 mcg PO DAILY THYROID 08/20/16 06/04/24 History nitroglycerin 0.4 mg sublingual 0.4 mg sublingual Q5M PRN Chest 08/20/16 Unknown History tablet Pain insulin glargine-yfgn 100 unit/mL 27 unit subcut QHS Diabetes 12/19/22 11/19/23 23:25 History (3 mL) subcutaneous pen insulin lispro 100 unit/mL 9 unit subcut TID Diabetes 12/19/22 11/20/23 History subcutaneous pen (Humalog KwikPen (U-100) Insulin) glucosamine-chondroitin 250 mg-200 2 tab PO TID Supplement 11/16/23 Unknown History mg tablet (Osteo Bi-Flex) losartan 100 mg tablet 100 mg PO DAILY BP 11/16/23 06/04/24 History omega 9-cfa-vgw-fish oil 1,200 mg 1 cap PO BID Supplement 11/16/23 11/20/23 History (144 mg-216 mg) capsule (Fish Oil) acetaminophen 500 mg tablet 1,000 mg (2 x 500 mg) PO Q6H PRN 12/07/23 Unknown Rx PRN Pain Score 1-10 #0 tabs furosemide 40 mg tablet 40 mg PO DAILY Fluid retention 30 12/07/23 Unknown Rx days #30 tabs empagliflozin 25 mg tablet 25 mg PO DAILY Blood sugar 05/28/24 Unknown History (Jardiance) meloxicam 7.5 mg tablet 7.5 mg PO DAILY Osteoarthristis 05/28/24 Unknown History mupirocin 2 % topical ointment 1 applic topical TID Skin condition 05/28/24 Unknown History dexamethasone 4 mg tablet 8 mg (2 x 4 mg) PO TID Steroid #0 05/31/24 05/31/24 Rx tabs insulin lispro 100 unit/mL See Protocol subcut ACHS Blood 05/31/24 Unknown Rx subcutaneous pen (Humalog KwikPen sugar #0 mL (U-100) Insulin) nutrition tx glu 120 ml PO TIDCM supplement #0 mL 05/31/24 Unknown Rx intol,lac-free,soy-fiber 0.06 gram-1.2 kcal/mL liquid (Glucerna 1.2 Jai) hydrochlorothiazide 12.5 mg capsule 12.5 mg PO DAILY bp 06/04/24 Unknown History Allergy/AdvReac Type Severity Reaction Status Date / Time iodine Allergy Swelling Verified 05/28/24 19:28 Penicillins AdvReac Mild PT UNSURE Verified 05/28/24 19:28 OF REACTION Surgical History History of tonsillectomy History of appendectomy History of cholecystectomy Social History household members: none Smoking Status: Never smoker alcohol intake: never substance use type: does not use ROS Constitutional Constitutional: Denies fatigue, fever(s), poor appetite, weight gain or weight loss Gastrointestinal Gastrointestinal: Denies belching, bloating, change in bowel habits, change in stool character, chewing difficulty, coffee ground emesis, constipation, cramping, diarrhea, dyspepsia, dysphagia, early satiety, excessive flatus, fecal incontinence, heartburn, hematemesis, hematochezia, hemorrhoids, loose stools, melena, nausea, odynophagia, rectal bleeding, tenesmus, vomiting or weight changes Physical Exam Const alert, oriented x3, no apparent distress and healthy appearing General Appearance: cooperative GI normal to inspection, nondistended, normoactive bowel sounds, soft to palpation, non-tender and non-distended Percussion: normal to percussion Rectal Exam: deferred Medical Records Data Medical Nutrition Assessment Dietitian: Malnutrition Criteria Met Start: 06/16/24 10:42 Freq: Status: Active Protocol: Document 06/16/24 10:43 SB (Rec: 06/16/24 10:43 SB [id number]) Nutrition Malnutrition Evidence of Malnutrition Exists Yes Malnutrition (severe): Acute Illness/Injury Evidenced By Suboptimal Energy Intake ( Severe),Weight Loss (Severe) Intake Problem Inadequate Oral Intake Etiology related to mental status Signs/Symptoms as evidenced by NPO status. Status Active Problem Clinical Problem Acute Disease or Injury Related Malnutrition Etiology severe related to inadequate oral intake Signs/Symptoms as evidenced by PO meeting <50 % of estimated nutrition needs x 1 week, 7% unintentional weight loss x 2 weeks, and 2+ pitting edema in L arm. Status Active Problem Altered Nutrient-Related Laboratory Values Etiology related to endocrine dysfunction/diabetes Signs/Symptoms as evidenced by A1C 11% and glucose 254 Status Active Problem Recommendation Dietitian Recommendations/Changes Recommend advanced diet as tolerated to liberal regular diet d/t signs and symptoms of malnutrition, per RESIDENCE LIFE COORDINATOR consistency/texture recommendations. Will d/c glucerna shake d/t NPO. Recommend initiating nutrition support in 24-48 hours if pt is still NPO. If nutrition support is initiated recommend Jevity 1. 5Cal goal rate 50ml/hr with 130ml flushes every 4 hours to provide 1800 calories, 76g protein, and 1692ml total fluid/day. Wound start at 10ml /hr d/t risk of refeeding syndrome and increase by 10ml every 8-12 hours as tolerated until goal rate is achieved. Will monitor weight, as available. Reviewed and approved by Jeanna Seals RDN, MANISHA. Lab / Micro Data 06/20/24 05:26 06/20/24 05:26 Labs: Laboratory Results - last 24 hr 06/19/24 11:38: POC Glucose 194 H 06/19/24 16:28: POC Glucose 193 H 06/19/24 23:00: POC Glucose 221 H 06/20/24 05:26: WBC 16.9 H, RBC 2.70 L, Hgb 7.7 L, Hct 25.3 L, MCV 93.7, MCH 28.5, MCHC 30.4 L, RDW Std Deviation 55.1 H, RDW Coeff of Tyesha 17.1 H, Plt Count 275, MPV 10.9, PT 17.1 H, INR 1.4, APTT 37.2 H, Sodium 150 H, Potassium 4.6, Chloride 123 H, Carbon Dioxide 19.0 L, Anion Gap 8, BUN 56 H, Creatinine 1.91 H, Estim Creat Clear Calc 33.40, Est GFR (MDRD) Af Amer 43 L, Est GFR (MDRD) Non-Af 36 L, BUN/Creatinine Ratio 29.3 H, Glucose 261 H, Calcium 8.2 L, Total Bilirubin 0.50, Direct Bilirubin 0.13, AST 22, ALT 23, Alkaline Phosphatase 78, Total Protein 4.7 L, Albumin 2.0 L, Globulin 2.7, TSH 4.830 H 06/20/24 05:44: POC Glucose 228 H Micro: Microbiology 06/17/24 12:51 Wound - Neck Gram Stain - Final 06/17/24 12:51 Wound - Neck Wound Culture - Preliminary 06/17/24 12:51 Wound - Neck Anaerobic Culture - Preliminary No growth in 48 hours. Assessment & Plan Assessment/Plan (1) Stroke/cerebrovascular accident: QUALIFIERS: CVA mechanism: unspecified Qualified Code(s): I63.9 - Cerebral infarction, unspecified (2) Acute hypoxemic respiratory failure: (3) Protein calorie malnutrition: (4) Dysphagia: PLAN: Plan I spoke with patient's son over the phone and explained to him that it is recommended that he get temporary nutrition through Dobbhoff tube that can be removed with ease. The patient and the patient's son were explained alternatives, risk and benefits include not withstanding bleeding, infection, sepsis, perforation, need for charge and . He will have an ASA of 3. Charges/Coding Visit Charges Inpatient E&M: 86943 Init Hosp L3
--- NOTE | 2024-06-19 11:44 | PCM.PN.HOSP ---
Reason for Visit Reason for Visit: Diagnoses Hypothyroidism, unspecified (06/04/24) Type 2 diabetes mellitus with hyperglycemia (06/04/24) Obesity, unspecified (06/04/24) Hyperlipidemia, unspecified (06/04/24) Other specified diseases of spinal cord (06/04/24) Disease of spinal cord, unspecified (06/04/24) Essential (primary) hypertension (06/04/24) Cerebral infarction, unspecified (06/04/24) Acute respiratory failure with hypoxia (06/04/24) Unspecified osteoarthritis, unspecified site (06/04/24) Other injury of unspecified body region, initial encounter (06/04/24) Arthrodesis status (06/04/24) Subjective Subjective Saw patient at bedside this morning. Patient was very fatigued appearing this morning, responded to questions with nodding or shaking his head but appeared more tired than yesterday. No new concerns today. Objective Data Objective Data Vital Signs: Vital Signs Temp Pulse Resp BP Pulse Ox O2 Del Method O2 Flow Rate 98.2 F 100 18 131/67 H 99 Nasal Cannula 3 06/19/24 11:23 06/19/24 11:23 06/19/24 11:23 06/19/24 11:23 06/19/24 11:23 06/19/24 11:23 06/19/24 11:23 FiO2 30 06/17/24 10:01 Oxygen Flow Rate (L/min) 3 Oxygen Delivery Method Nasal Cannula Weight: 107.6 kg Body Mass Index (BMI) 37.1 Intake & Output: Intake and Output for Last 24 Hours 06/17/24 06/18/24 06/19/24 23:59 23:59 23:59 Intake Total 1003.0 / 1003.0 220 / 220 410.83 / 410.83 Output Total 1178 / 1178 1119 / 1169 775 / 775 Balance -175.0 / -175.0 -899 / -949 -364.17 / -364.17 Medical Nutrition Assessment Dietitian: Malnutrition Criteria Met Start: 06/16/24 10:42 Freq: Status: Active Protocol: Document 06/16/24 10:43 SB (Rec: 06/16/24 10:43 SB [id number]) Nutrition Malnutrition Evidence of Malnutrition Exists Yes Malnutrition (severe): Acute Illness/Injury Evidenced By Suboptimal Energy Intake ( Severe),Weight Loss (Severe) Intake Problem Inadequate Oral Intake Etiology related to mental status Signs/Symptoms as evidenced by NPO status. Status Active Problem Clinical Problem Acute Disease or Injury Related Malnutrition Etiology severe related to inadequate oral intake Signs/Symptoms as evidenced by PO meeting <50 % of estimated nutrition needs x 1 week, 7% unintentional weight loss x 2 weeks, and 2+ pitting edema in L arm. Status Active Problem Altered Nutrient-Related Laboratory Values Etiology related to endocrine dysfunction/diabetes Signs/Symptoms as evidenced by A1C 11% and glucose 254 Status Active Problem Recommendation Dietitian Recommendations/Changes Recommend advanced diet as tolerated to liberal regular diet d/t signs and symptoms of malnutrition, per MANAGING DIRECTOR consistency/texture recommendations. Will d/c glucerna shake d/t NPO. Recommend initiating nutrition support in 24-48 hours if pt is still NPO. If nutrition support is initiated recommend Jevity 1. 5Cal goal rate 50ml/hr with 130ml flushes every 4 hours to provide 1800 calories, 76g protein, and 1692ml total fluid/day. Wound start at 10ml /hr d/t risk of refeeding syndrome and increase by 10ml every 8-12 hours as tolerated until goal rate is achieved. Will monitor weight, as available. Reviewed and approved by Jeanna Seals RDN, LD. Lab / Micro Data 06/19/24 05:43 06/19/24 05:43 Labs: Laboratory Results - last 24 hr 06/15/24 06:39: Diff Path Review Reviewed 06/18/24 07:37: Crossmatch See Detail 06/18/24 11:18: POC Glucose 174 H 06/18/24 16:54: POC Glucose 213 H 06/18/24 21:38: POC Glucose 175 H 06/19/24 05:43: WBC 16.8 H, RBC 2.43 L, Hgb 6.8 L, Hct 22.5 L, MCV 92.6, MCH 28.0, MCHC 30.2 L, RDW Std Deviation 51.3 H, RDW Coeff of Tyesha 16.2 H, Plt Count 270, MPV 10.8, Sodium 147 H, Potassium 4.3, Chloride 121 H, Carbon Dioxide 20.0 L, Anion Gap 6, BUN 55 H, Creatinine 1.91 H, Estim Creat Clear Calc 33.68, Est GFR (MDRD) Af Amer 43 L, Est GFR (MDRD) Non-Af 36 L, BUN/Creatinine Ratio 28.8 H, Glucose 224 H, Calcium 7.9 L 06/19/24 06:23: POC Glucose 210 H Micro: Microbiology 06/17/24 12:51 Wound - Neck Gram Stain - Final 06/17/24 12:51 Wound - Neck Wound Culture - Preliminary 06/17/24 12:51 Wound - Neck Anaerobic Culture - Preliminary No growth in 48 hours. 06/12/24 08:30 Blood Culture (Wb) - Anticubital Right Blood Culture - Final No growth in 5 days. 06/11/24 08:30 Urine Catheter - Catheter Urine Culture - Final Klebsiella oxytoca Physical Exam Const Constitutional Narrative: Elderly male, fatigued appearing and mentation slightly worse than yesterday, laying back in bed with neck brace in place, nodding yes or no to questions but still not able to verbalize anything. HEENT normocephalic, head/scalp atraumatic, hearing grossly normal bilaterally and nasal mucous membranes and turbinates normal Eyes PERRL, EOMs intact bilaterally and conjunctivae normal Neck Neck Narrative: Neck brace in place. Wound VAC in place with multiple drains noted with bloody to serosanguineous output. Stable. Lymph Lymphatic: no lymphadenopathy noted Chest inspection of chest normal Resp normal respiratory effort, no use of accessory muscles and clear to auscultation bilaterally Cardio regular rate, regular rhythm, no murmurs and peripheral pulses 2+ throughout GI normal to inspection, nondistended, normoactive bowel sounds, soft to palpation, non-tender and non-distended Extremity normal to inspection and no pedal edema Assessment & Plan Assessment/Plan (1) Acute hypoxemic respiratory failure: (2) Status post cervical spinal fusion: PLAN: Plan Patient is an 83-year-old male who presented to [facility] ED on 06/04/2024 from the TCU for planned cervical spine procedure. Hospital course complicated by bilateral pulmonary emboli with right heart strain, sepsis secondary to Klebsiella UTI, KELVIN and metabolic encephalopathy. 1. Acute hypoxic respiratory failure secondary to bilateral pulmonary emboli with right heart strain, improving ? Web Analytics Specialist followed. Had postoperative acute respiratory failure on 06/05 requiring transfer to the ICU. CTA chest showed bilateral PE with right heart strain. Echo 06/06 showed EF 60%, severely dilated RV, moderately decreased RV systolic function. Continue treatment with therapeutic Lovenox, plan is to transition to Eliquis once wound VAC changes are complete on 06/21. Weaned back to room air at rest. Continue to monitor. 2. 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 Orthopedic surgery and plastic surgery following. Patient with initial C3-T1 fusion surgery with skin flap coverage on 06/04. Unfortunately had increasing serosanguineous to bloody output from the wound VAC in recent days along with worsening swelling near the incision site. CT C-spine on 06/17 showed a new 7 cm fluid collection in the posterior paraspinous musculature consistent with a postop hematoma. S/p incision and drainage with possible closure of the hematoma on 06/17, with replacement of drain and wound VAC. Cervical collar back in place. Will continue to follow closely and appreciate orthopedic and plastic surgery assistance. 3. Acute metabolic encephalopathy, improving ? Speech therapy following. Unclear etiology but suspected this was in part due to sedating medications along with overall generalized weakness. Patient more alert on 06/18 but unfortunately remains unable to take in p.o. safely. GI consulted for Dobbhoff tube placement and will plan to initiate tube feeds after placement. Continue to avoid sedating medications as able. 4. Sepsis secondary to Klebsiella UTI ? Urine culture 06/11 grew greater than 100,000 Klebsiella. Blood cultures with no growth. Blood pressure improved with IV fluid resuscitation. Completed IV ceftriaxone for 7-day course total on 06/17. 5. KELVIN ? Baseline creatinine appears to be around 1.2. Creatinine worsened post procedure likely due to hypotension in setting of bilateral PE and UTI. Peak of 2.49 on 06/11. Now stable around 1.7-1.9. Adequate urine output. Continue to monitor daily BMP and urine output. 6. Anemia ? Hemoglobin slowly down trended during hospitalization suspect due to blood loss and drainage from wound VAC and lab draws. Did have 1 apparent dark stool on 06/15 but has had no further stools since then. Hemoglobin down trended postoperatively with most recent hemoglobin 6.8 on 06/19. Transfused 1 unit of blood on 06/19. Continue to monitor CBC daily and transfuse for hemoglobin less than 7. Continue IV PPI twice daily for now. 7. Hypernatremia ? Suspect due to poor p.o. intake. Most recent sodium 147 on 06/19. Will be initiating tube feeds after Dobbhoff tube is placed as noted above. 8. Urinary retention ? Had Jeffrey catheter placed early in hospitalization due to retention. Continue Jeffrey at this time. Chronic medical conditions: ? Class II obesity: BMI 35 on admit. Complicates hospital course, care and prognosis. ? Type 2 diabetes mellitus: Continue reduced regimen from home of Lantus 20 units at night with sliding scale insulin every 6 hours as needed while n.p.o. Adjust regimen as needed. ? Hypertension: Holding home atenolol, losartan and Jardiance. ? Hyperlipidemia: Continue home statin. ? Hypothyroidism: Continue Synthroid. DVT prophylaxis: Not indicated, on therapeutic Lovenox CODE STATUS: DNR CCA, DNI Expected disposition: TBD Total clinical time spent by myself addressing the patient's medical issues, reviewing all the data, and collaborating with patient's care team: 35 minutes. Charges/Coding Visit Charges Inpatient E&M: 71257 Subs Hosp L2
[2024-06-19 12:07] LABS: Bedside Glucose 194 mg/dL (74-106)
--- NOTE | 2024-06-19 14:01 | NURSING ---
voicemail message left for son Demetris as is listed in demographics requesting return phone call to unit regarding his father.
--- NOTE | 2024-06-19 14:30 | NURSING ---
son Demetris phoned in and updated on POC, states he will be in tonight and then will be able to sign consent.
[2024-06-19 17:05] LABS: Bedside Glucose 193 mg/dL (74-106)
--- NOTE | 2024-06-19 17:09 | NURSING ---
skin intact underneath c-collar.
[2024-06-19] MEDS: Menthol/Lanolin/Calamine/Znox 113 GM Tube 1 APPLIC TOPICAL (23:01)
[2024-06-19 23:40] LABS: Bedside Glucose 221 mg/dL (74-106)
[2024-06-20] VITALS (10 sets, daily range): BP systolic 88–122; BP diastolic 45–64; PULSE 90–115; RESP 14–18; TEMP 36.2–37.1; O2SAT 94–100; BMI 36.6
--- NOTE | 2024-06-20 05:55 | EKG12_ITS ---
Test Reason : AM Blood Pressure : */* mmHG Vent. Rate : 102 BPM Atrial Rate : 102 BPM P-R Int : 162 ms QRS Dur : 96 ms QT Int : 348 ms P-R-T Axes : 36 -24 77 degrees QTcB Int : 453 ms Sinus tachycardia Incomplete right bundle branch block Inferior infarct (cited on or before 09-Nov-2021) Abnormal ECG Confirmed by AMAURI ROWLEY, MERLY ([id number]), editor publications CEASAR ANTUNEZ ([id number]) on 06/20/2024 11:02:31 AM Referred By: Henry Hernandez Confirmed By: MERLY BAUGH MD
[2024-06-20 06:03] LABS: Hematocrit 25.3 % (40-54); Hemoglobin 7.7 g/dL (13.0-16.5); Mean Corp Hgb Conc 30.4 g/dL (32-36); Mean Corpuscular Hgb 28.5 pg (27.0-32.0); Mean Corpuscular Volume 93.7 fL (80-94); Mean Platelet Vol. 10.9 fl (6.2-12.0); Platelet Count 275 K/mm3 (150-450); RBC Distribution Width CV 17.1 % (11.6-14.6); RBC Distribution Width SD 55.1 fl (35.1-43.9); White Blood Count 16.9 K/mm3 (4.4-11.0)
[2024-06-20 06:09] LABS: International Normalized Ratio 1.4; Prothrombin Time (Protime)PT. 17.1 SECONDS (11.7-14.9)
[2024-06-20 06:10] LABS: Partial Thromboplast Time 37.2 Seconds (24.1-36.2)
[2024-06-20 06:15] LABS: Bedside Glucose 228 mg/dL (74-106)
[2024-06-20 06:45] LABS: Anion Gap 8 (5-15); BUN 56 mg/dL (7-18); BUN/Creat Ratio 29.3 RATIO (10-20); Calcium,Total 8.2 mg/dL (8.5-10.1); Chloride 123 mmol/L (98-107); Creatinine, Serum 1.91 mg/dL (0.70-1.30); EST Glomerular Filtration Rate 36 mL/min (>60); Est Glom Filt Rate - Afr Amer 43 mL/min (>60); Glucose 261 mg/dL (74-106); Potassium 4.6 mmol/L (3.5-5.1); Sodium Level 150 mmol/L (136-145)
[2024-06-20 07:02] LABS: AST(SGOT) 22 U/L (15-37); Alanine Aminotransfer ALT/SGPT 23 U/L (16-61); Alkaline Phosphatase 78 U/L (45-117); Bilirubin, Direct 0.13 mg/dL (0.00-0.30); Globulin 2.7 g/dL (2.2-4.2); Protein, Total 4.7 g/dL (6.4-8.2)
--- NOTE | 2024-06-20 08:40 | PCM.PN.SRG ---
Subjective Subjective Pain appears controlled. Opens eyes and follows commands. Hgb 7.7 this morning (stable after 1 unit yesterday morning for 6.8). Getting DHT for supplemental nutrition today. Objective Data Objective Data Vital Signs: Vital Signs Temp Pulse Resp BP Pulse Ox O2 Del Method O2 Flow Rate 97.8 F 96 18 122/52 H 95 Nasal Cannula 3 06/20/24 05:42 06/20/24 05:42 06/20/24 05:42 06/20/24 05:42 06/20/24 07:34 06/20/24 07:34 06/20/24 07:34 FiO2 30 06/17/24 10:01 Oxygen Flow Rate (L/min) 3 Oxygen Delivery Method Nasal Cannula Weight: 233 lb 7.512 oz Body Mass Index (BMI) 36.6 Intake & Output: Intake and Output for Last 24 Hours 06/18/24 06/19/24 06/20/24 23:59 23:59 23:59 Intake Total 220 / 220 520.83 / 520.83 Output Total 1119 / 1169 1740 / 1740 400 / 400 Balance -899 / -949 -1219.17 / -1219.17 -400 / -400 Medical Nutrition Assessment Dietitian: Malnutrition Criteria Met Start: 06/16/24 10:42 Freq: Status: Active Protocol: Document 06/16/24 10:43 SB (Rec: 06/16/24 10:43 SB [id number]) Nutrition Malnutrition Evidence of Malnutrition Exists Yes Malnutrition (severe): Acute Illness/Injury Evidenced By Suboptimal Energy Intake ( Severe),Weight Loss (Severe) Intake Problem Inadequate Oral Intake Etiology related to mental status Signs/Symptoms as evidenced by NPO status. Status Active Problem Clinical Problem Acute Disease or Injury Related Malnutrition Etiology severe related to inadequate oral intake Signs/Symptoms as evidenced by PO meeting <50 % of estimated nutrition needs x 1 week, 7% unintentional weight loss x 2 weeks, and 2+ pitting edema in L arm. Status Active Problem Altered Nutrient-Related Laboratory Values Etiology related to endocrine dysfunction/diabetes Signs/Symptoms as evidenced by A1C 11% and glucose 254 Status Active Problem Recommendation Dietitian Recommendations/Changes Recommend advanced diet as tolerated to liberal regular diet d/t signs and symptoms of malnutrition, per POLISHING WHEEL SETTER consistency/texture recommendations. Will d/c glucerna shake d/t NPO. Recommend initiating nutrition support in 24-48 hours if pt is still NPO. If nutrition support is initiated recommend Jevity 1. 5Cal goal rate 50ml/hr with 130ml flushes every 4 hours to provide 1800 calories, 76g protein, and 1692ml total fluid/day. Wound start at 10ml /hr d/t risk of refeeding syndrome and increase by 10ml every 8-12 hours as tolerated until goal rate is achieved. Will monitor weight, as available. Reviewed and approved by Jeanna Seals RDN, MANISHA. Lab / Micro Data 06/20/24 05:26 06/20/24 05:26 Labs: Laboratory Results - last 24 hr 06/18/24 07:37: Crossmatch See Detail 06/19/24 11:38: POC Glucose 194 H 06/19/24 16:28: POC Glucose 193 H 06/19/24 23:00: POC Glucose 221 H 06/20/24 05:26: WBC 16.9 H, RBC 2.70 L, Hgb 7.7 L, Hct 25.3 L, MCV 93.7, MCH 28.5, MCHC 30.4 L, RDW Std Deviation 55.1 H, RDW Coeff of Tyesha 17.1 H, Plt Count 275, MPV 10.9, PT 17.1 H, INR 1.4, APTT 37.2 H, Sodium 150 H, Potassium 4.6, Chloride 123 H, Carbon Dioxide 19.0 L, Anion Gap 8, BUN 56 H, Creatinine 1.91 H, Estim Creat Clear Calc 33.40, Est GFR (MDRD) Af Amer 43 L, Est GFR (MDRD) Non-Af 36 L, BUN/Creatinine Ratio 29.3 H, Glucose 261 H, Calcium 8.2 L, Total Bilirubin 0.50, Direct Bilirubin 0.13, AST 22, ALT 23, Alkaline Phosphatase 78, Total Protein 4.7 L, Albumin 2.0 L, Globulin 2.7, TSH 4.830 H 06/20/24 05:44: POC Glucose 228 H Micro: Microbiology 06/17/24 12:51 Wound - Neck Gram Stain - Final 06/17/24 12:51 Wound - Neck Wound Culture - Preliminary 06/17/24 12:51 Wound - Neck Anaerobic Culture - Preliminary No growth in 48 hours. 06/12/24 08:30 Blood Culture (Wb) - Anticubital Right Blood Culture - Final No growth in 5 days. 06/11/24 08:30 Urine Catheter - Catheter Urine Culture - Final Klebsiella oxytoca Physical Exam Narrative NECK Incisional VAC holding suction. Removed and replaced at bedside today. Incision c/d/i. Drains strip well. They're SS, no clot. The output is appropriate. Neck is soft, no signs of hematoma. Const alert Chest inspection of chest normal Resp normal respiratory effort Resp Narrative: 2 liters via NC, saturations in the mid 90s. Cardio regular rate Extremity Extremity Narrative: SCDs on and activated. Moving all 4 extremities and following commands Gave thumbs up and gripped my hand bilaterally, and he plantarflexed for me . Sensation is intact to light touch in all 4 extremities. Neuro moves all extremities Neuro Narrative: Moving on command (follows commands). 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 Talked to primary team about feeding tube, and they're planning to place for supplemental nutrition (today). Blood thinner obligatory (pulmonary emboli) and will continue, but currently no signs of bleeding. Drains productive but no drop in Hgb (output SS. Continue to monitor). Please continue tight glucose control for wound healing. Incisional VAC to be changed on Monday, 24 Jun 2024. Continue drain care. Charges/Coding Procedures Integumentary [id number]: [id number] Global Visit
--- NOTE | 2024-06-20 11:15 | PN.HOSP_ITS ---
Reason for Visit Reason for Visit: Diagnoses Hypothyroidism, unspecified (06/04/24) Type 2 diabetes mellitus with hyperglycemia (06/04/24) Obesity, unspecified (06/04/24) Hyperlipidemia, unspecified (06/04/24) Other specified diseases of spinal cord (06/04/24) Disease of spinal cord, unspecified (06/04/24) Essential (primary) hypertension (06/04/24) Cerebral infarction, unspecified (06/04/24) Acute respiratory failure with hypoxia (06/04/24) Unspecified osteoarthritis, unspecified site (06/04/24) Other injury of unspecified body region, initial encounter (06/04/24) Arthrodesis status (06/04/24) Subjective Subjective Saw patient at bedside this morning. He was fatigued appearing but otherwise laying back comfortably in bed. Appeared similar to yesterday. I then saw patient at the bedside this afternoon after Dobbhoff tube was placed. Patient was again fatigued appearing and did shake his head noted that he had some pain/discomfort in his upper abdominal area. Notably on EGD he was found to have oozing gastric ulcers that were clipped. Has not had tube feeds started through the Dobbhoff tube yet. No other new concerns at this time. Objective Data Objective Data Vital Signs: Vital Signs Temp Pulse Resp BP Pulse Ox O2 Del Method O2 Flow Rate 97.8 F 96 18 122/52 H 95 Nasal Cannula 3 06/20/24 05:42 06/20/24 05:42 06/20/24 05:42 06/20/24 05:42 06/20/24 07:34 06/20/24 07:34 06/20/24 08:57 FiO2 30 06/17/24 10:01 Oxygen Flow Rate (L/min) 3 Oxygen Delivery Method Nasal Cannula Weight: 105.9 kg Body Mass Index (BMI) 36.6 Intake & Output: Intake and Output for Last 24 Hours 06/18/24 06/19/24 06/20/24 23:59 23:59 23:59 Intake Total 220 / 220 520.83 / 520.83 Output Total 1119 / 1169 1740 / 1740 400 / 400 Balance -899 / -949 -1219.17 / -1219.17 -400 / -400 Medical Nutrition Assessment Dietitian: Malnutrition Criteria Met Start: 06/16/24 10:42 Freq: Status: Active Protocol: Document 06/16/24 10:43 SB (Rec: 06/16/24 10:43 SB [id number]) Nutrition Malnutrition Evidence of Malnutrition Exists Yes Malnutrition (severe): Acute Illness/Injury Evidenced By Suboptimal Energy Intake ( Severe),Weight Loss (Severe) Intake Problem Inadequate Oral Intake Etiology related to mental status Signs/Symptoms as evidenced by NPO status. Status Active Problem Clinical Problem Acute Disease or Injury Related Malnutrition Etiology severe related to inadequate oral intake Signs/Symptoms as evidenced by PO meeting <50 % of estimated nutrition needs x 1 week, 7% unintentional weight loss x 2 weeks, and 2+ pitting edema in L arm. Status Active Problem Altered Nutrient-Related Laboratory Values Etiology related to endocrine dysfunction/diabetes Signs/Symptoms as evidenced by A1C 11% and glucose 254 Status Active Problem Recommendation Dietitian Recommendations/Changes Recommend advanced diet as tolerated to liberal regular diet d/t signs and symptoms of malnutrition, per PHYSICAL SCIENCE TECHNICIAN consistency/texture recommendations. Will d/c glucerna shake d/t NPO. Recommend initiating nutrition support in 24-48 hours if pt is still NPO. If nutrition support is initiated recommend Jevity 1. 5Cal goal rate 50ml/hr with 130ml flushes every 4 hours to provide 1800 calories, 76g protein, and 1692ml total fluid/day. Wound start at 10ml /hr d/t risk of refeeding syndrome and increase by 10ml every 8-12 hours as tolerated until goal rate is achieved. Will monitor weight, as available. Reviewed and approved by Jeanna Seals RDN, MANISHA. Lab / Micro Data 06/20/24 05:26 06/20/24 05:26 Labs: Laboratory Results - last 24 hr 06/18/24 07:37: Crossmatch See Detail 06/19/24 11:38: POC Glucose 194 H 06/19/24 16:28: POC Glucose 193 H 06/19/24 23:00: POC Glucose 221 H 06/20/24 05:26: WBC 16.9 H, RBC 2.70 L, Hgb 7.7 L, Hct 25.3 L, MCV 93.7, MCH 28.5, MCHC 30.4 L, RDW Std Deviation 55.1 H, RDW Coeff of Tyesha 17.1 H, Plt Count 275, MPV 10.9, PT 17.1 H, INR 1.4, APTT 37.2 H, Sodium 150 H, Potassium 4.6, C hloride 123 H, Carbon Dioxide 19.0 L, Anion Gap 8, BUN 56 H, Creatinine 1.91 H, Estim Creat Clear Calc 33.40, Est GFR (MDRD) Af Amer 43 L, Est GFR (MDRD) Non-Af 36 L, BUN/Creatinine Ratio 29.3 H, Glucose 261 H, Calcium 8.2 L, Total Bilirubin 0.50, Direct Bilirubin 0.13, AST 22, ALT 23, Alkaline Phosphatase 78, Total Protein 4.7 L, Albumin 2.0 L, Globulin 2.7, TSH 4.830 H 06/20/24 05:44: POC Glucose 228 H Micro: Microbiology 06/17/24 12:51 Wound - Neck Gram Stain - Final 06/17/24 12:51 Wound - Neck Wound Culture - Preliminary 06/17/24 12:51 Wound - Neck Anaerobic Culture - Preliminary No growth in 48 hours. 06/12/24 08:30 Blood Culture (Wb) - Anticubital Right Blood Culture - Final No growth in 5 days. 06/11/24 08:30 Urine Catheter - Catheter Urine Culture - Final Klebsiella oxytoca Physical Exam Const Constitutional Narrative: Elderly male, fatigued appearing and mentation stable from yesterday, laying back in bed with neck brace in place, nodding yes or no to questions but still not able to verbalize anything. HEENT normocephalic, head/scalp atraumatic, hearing grossly normal bilaterally and nasal mucous membranes and turbinates normal Eyes PERRL, EOMs intact bilaterally and conjunctivae normal Neck Neck Narrative: Neck brace in place. Wound VAC in place with multiple drains noted with bloody to serosanguineous output. Stable. Lymph Lymphatic: no lymphadenopathy noted Chest inspection of chest normal Resp normal respiratory effort, no use of accessory muscles and clear to auscultation bilaterally Cardio regular rate, regular rhythm, no murmurs and peripheral pulses 2+ throughout GI normal to inspection, nondistended, normoactive bowel sounds, soft to palpation and non-distended GI Narrative: Abdomen mildly tender to palpation diffusely but otherwise soft and nondistended. Extremity no pedal edema Extremity Narrative: Right hand with +2-3 pitting edema. Notably good radial pulse and patient has been on anticoagulation throughout this hospitalization. No lower extremity edema and minimal left hand edema. Neuro Neuro Narrative: Neck brace in place. Very weak throughout. Assessment & Plan Assessment/Plan (1) Acute hypoxemic respiratory failure: (2) Status post cervical spinal fusion: PLAN: Plan Patient is an 83-year-old male who presented to [facility] ED on 06/04/2024 from the TCU for planned cervical spine procedure. Hospital course complicated by bilateral pulmonary emboli with right heart strain, sepsis secondary to Klebsiella UTI, KELVIN and metabolic encephalopathy. 1. Acute hypoxic respiratory failure secondary to bilateral pulmonary emboli with right heart strain, improving ? Signing Agent followed. Had postoperative acute respiratory failure on 06/05 requiring transfer to the ICU. CTA chest showed bilateral PE with right heart strain. Echo 06/06 showed EF 60%, severely dilated RV, moderately decreased RV systolic function. Continue treatment with therapeutic Lovenox, plan is to transition to Eliquis once wound VAC changes are complete on 06/21. Weaned back to room air at rest. Continue to monitor. 2. 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 Orthopedic surgery and plastic surgery following. Patient with initial C3-T1 fusion surgery with skin flap coverage on 06/04. Unfortunately had increasing serosanguineous to bloody output from the wound VAC in recent days along with worsening swelling near the incision site. CT C-spine on 06/17 showed a new 7 cm fluid collection in the posterior paraspinous musculature consistent with a postop hematoma. S/p incision and drainage with possible closure of the hematoma on 06/17, with replacement of drain and wound VAC. Cervical collar back in place. Will continue to follow closely and appreciate orthopedic and plastic surgery assistance. 3. Acute metabolic encephalopathy ? Speech therapy and nutrition following. Unclear etiology but suspected this was in part due to sedating medications along with overall generalized weakness. Patient more alert on 06/19 but unfortunately still unable to take in p.o. safely. S/p Dobbhoff tube placement by GI on 06/20. Tube feeds initiated on the afternoon of 06/20 and will increase rate as tolerated. Will obtain refeeding labs this evening and tomorrow morning to ensure no significant electrolyte disturbances. Continue to avoid sedating medications as able. 4. Anemia ? Multifactorial secondary to blood loss and drainage from wound VAC, blood loss from GI bleed and lab draws. Hemoglobin 6.8 on 06/19, s/p 1 unit of blood with repeat hemoglobin 7.7 on 06/20. Continue to monitor CBC daily and transfuse for hemoglobin less than 7. 5. Upper GI bleed ? S/p EGD with Dr. Sanders on 06/20 for Dobbhoff tube placement, was found to have several duodenal ulcers with some active bleeding noted. 2 clips were placed with cessation of bleeding. Suspect ulcers were largely secondary to acute stress state, lack of recent p.o. intake and exacerbated by therapeutic anticoagulation. Will continue treatment with IV PPI twice daily. 6. Hypernatremia ? Presume secondary to poor p.o. intake. Most recent sodium 150 on 06/20. Free water flushes added to tube feeds. Monitor daily sodium level. 7. KELVIN ? Baseline creatinine appears to be around 1.2. Creatinine worsened post procedure likely due to hypotension in setting of bilateral PE and UTI. Peak of 2.49 on 06/11. Now stable around 1.7-1.9. Adequate urine output. Continue to monitor daily BMP and urine output. 8. Sepsis secondary to Klebsiella UTI ? Urine culture 06/11 grew greater than 100,000 Klebsiella. Blood cultures with no growth. Blood pressure improved with IV fluid resuscitation. Completed IV ceftriaxone for 7-day course total on 06/17. 9. Urinary retention ? Had Jeffrey catheter placed early in hospitalization due to retention. Continue Jeffrey at this time. Chronic medical conditions: ? Class II obesity: BMI 35 on admit. Complicates hospital course, care and prognosis. ? Type 2 diabetes mellitus: Continue reduced regimen from home of Lantus 20 units at night with sliding scale insulin every 6 hours as needed while n.p.o. Adjust regimen as needed. ? Hypertension: Holding home atenolol, losartan and Jardiance. ? Hyperlipidemia: Continue home statin. ? Hypothyroidism: Continue Synthroid. DVT prophylaxis: Not indicated, on therapeutic Lovenox CODE STATUS: DNR CCA, DNI Expected disposition: TBD Total clinical time spent by myself addressing the patient's medical issues, reviewing all the data, and collaborating with patient's care team: 35 minutes. Charges/Coding Visit Charges Inpatient E&M: 27098 Subs Hosp L2
--- NOTE | 2024-06-20 11:47 | PRE.ANES_ITS ---
ASA Classification* ASA Classification ASA Classification: 3 Assessment & Plan Anesthesia* Anesthesia Assessment Anesthesia Assessment: Discussed sedation and/or anesthesia options, risks, benefits, and alternatives with patient/parents/legal guardian/POA. Questions invited. The patient/parents/legal guardian/POA seems to understand and agrees to proceed with anesthesia plan. Reviewed the physical assessment, medical history, allergy history and patient home medications list prior to surgery/procedure/anesthetic and documented any changes. Performed airway and anesthesia risk assessments. Anesthesia Type Anesthesia Type: MAC History Source History Obtained from:: Chart and Parent/ Guardian (Anesthesia consent was obtained from patient's son Demetris Archer. He understands, has no questions and wishes to proceed.) Anesthesia Focused Assessment* Temperature: 97.8 F Pulse Rate: 96 Blood Pressure: 122/52 Respiratory Rate: 18 Pulse Ox: 95 Oxygen Delivery Method: Nasal Cannula Oxygen Flow Rate (L/min): 3 Fraction of Inspired Oxygen (FIO2): 30 Airway Assessment Mouth opens: 1 cm Mallampati Score: IV Teeth Condition: Missing (Patient has multiple missing teeth.) Comment: Patient is not very cooperative for airway exam. Focused Labs Anesthesia Preop lab: CBC WBC 16.9 K/mm3 (4.4-11.0) H 06/20/24 05:26 RBC 2.70 M/mm3 (4.6-6.2) L 06/20/24 05:26 Hgb 7.7 g/dL (13.0-16.5) L 06/20/24 05:26 Hct 25.3 % (40-54) L 06/20/24 05:26 Plt Count 275 K/mm3 (150-450) 06/20/24 05:26 CHEMISTRY Potassium 4.6 mmol/L (3.5-5.1) 06/20/24 05:26 Sodium 150 mmol/L (136-145) H 06/20/24 05:26 Magnesium 2.9 mg/dL (1.6-2.6) H 06/14/24 05:55 Phosphorus 3.8 mg/dL (2.5-4.9) 06/14/24 05:55 BUN 56 mg/dL (7-18) H 06/20/24 05:26 Creatinine 1.91 mg/dL (0.70-1.30) H 06/20/24 05:26 Glucose 261 mg/dL (74-106) H 06/20/24 05:26 POC Glucose 228 mg/dL (74-106) H 06/20/24 05:44 TSH 4.830 uIU/mL (0.358-3.740) H 06/20/24 05:26 COAG PT 17.1 SECONDS (11.7-14.9) H 06/20/24 05:26 Pre-Assessment Diagnosis/Proposed Procedure Planned Operative Procedure(s): Esophagogastroduodenoscopy with dilation and placement of Dobhoff tube. 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 When Was Last Pacemaker Check QUESTION #4 FULL TEXT: You/Your Family Experience fever (hyperthermia) with Anesthesia Last Oral Intake Last Oral intake: Last Oral Intake NPO since 00:00 06/04/24 12:02 Meds taken in AM with sips of Yes 06/04/24 12:02 water? Meds patient instructed to take am of surgery PONV PONV - fiberglass grinder: PONV - fiberglass grinder Female No 06/03/24 14:52 HX of Motion Sickness No 06/03/24 14:52 HX of N/V After Surgery No 06/03/24 14:52 Non-Smoker Yes 06/03/24 14:52 Duration of Surgery greater Yes 06/03/24 14:52 than 60 minutes Number of Risk Factors 2 06/03/24 14:52 PONV Score Moderate Risk 06/03/24 14:52 Height & Weight Height & Weight: Anesthesia: Height & Weight Height 5 ft 7 in 06/19/24 12:20 Weight: 105.9 kg 06/20/24 04:34 Body Mass Index (BMI) 36.6 06/20/24 04:34 Respiratory Assessment Respiratory Assessment - fiberglass grinder: Respiratory Tract Infection Hx - fiberglass grinder Hx Respiratory Tract Infection No 06/20/24 08:02 STOP Sleep Apnea STOP Sleep Apnea - fiberglass grinder: STOP Sleep Apnea - fiberglass grinder Hx Hypertension Yes 06/05/24 11:08 Hx Sleep Apnea No 06/17/24 14:30 CPAP BIPAP Do you snore loudly (louder No 06/04/24 21:43 than talking or can be heard Do you often feel tired/ No 06/04/24 21:43 fatigued/ sleepy during daytime? Has anyone observed you stop No 06/04/24 21:43 breathing during sleep? STOP Results Negative 06/17/24 13:35 QUESTION #5 FULL TEXT : Do you snore loudly (louder than talking or can be heard through closed doors)? 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 Specify any problems Hx of Preganancy in last 3 N/A 06/04/24 21:43 Months Nurse Filling Out Transfusion [email or web address] 06/04/24 21:43 & Questions: Date: 06/04/24 06/04/24 21:43 Time: 21:47 06/04/24 21:43 Patient unable to answer at this time (ie. confused, unrespo /Reproduction History /Reproductive History - fiberglass grinder: /Reproductive Hx- fiberglass grinder Hx Now No 06/20/24 08:02 Gestational Age (in weeks): EDC: Hx Hx Para Hx Section SAB No 06/20/24 08:02 Active Medications Active Medications: Current Medications Generic Name Dose Route Start Last Admin Trade Name Freq PRN Reason Stop Dose Admin Acetaminophen 1,000 mg 06/04/24 22:00 06/20/24 04:46 Acetaminophen 500 Mg Tablet PO Not Given Q8 IMAN Acetaminophen 650 mg 06/19/24 08:11 06/19/24 23:03 Acetaminophen 650 Mg Suppository RC 650 mg Q6H PRN PRN Administration Pain 1-10 or Fever Atorvastatin Calcium 40 mg 06/04/24 22:00 06/19/24 20:35 Atorvastatin Calcium 40 Mg Tablet PO Not Given QHS IMAN Calamine/Phenol 1 applic 06/19/24 10:00 06/19/24 23:01 Menthol/Lanolin/Calamine/Znox 113 Gm Tube TOPICAL 1 applic BID IMAN Administration Protocol Enoxaparin Sodium 100 mg 06/15/24 22:00 06/19/24 23:00 Enoxaparin 100 Mg/Ml Syringe SC 100 mg Q12 IMAN Administration Glucagon 1 mg 06/05/24 02:48 Glucagon 1 Mg/Ml Syringe IM X1 PRN Hypoglycemia Protocol Sodium Chloride 500 mls @ 15 mls/hr 06/04/24 21:54 IV .[id number] PRN Saline Flush Sodium Chloride 500 mls @ 15 mls/hr 06/04/24 21:54 IV .[id number] PRN Additional IVPB Infusion Dextrose 250 mls @ 0 mls/hr 06/05/24 02:48 06/12/24 07:33 Dextrose 10%-Water IV Infused .Q0M PRN Infusion HYPOGLYCEMIA Protocol As Directed Pantoprazole Sodium 40 mg/ 110 mls @ 330 mls/hr 06/15/24 10:45 06/19/24 23:22 Sodium Chloride IV Infused Q12 IMAN Infusion Sodium Chloride 1,000 mls @ 15 mls/hr 06/17/24 09:40 06/19/24 10:41 IV 06/22/24 22:59 Not Given .Q48H IMAN Protocol Sodium Chloride 100 mls @ 15 mls/hr 06/19/24 08:25 06/19/24 11:41 IV 0 mls/hr .Q6H40M PRN Infusion SALINE FLUSH Insulin Glargine 20 unit 06/15/24 22:00 06/19/24 23:01 Insulin Glargine-Yfgn 100 Unit/Ml Pen SC Not Given QHS IMAN Insulin Human Lispro 0 unit 06/16/24 12:00 06/20/24 05:57 Insulin Lispro 100 Unit/Ml Insuln.Pen SC Not Given Q6 [facility] Protocol Levothyroxine Sodium 75 mcg 06/05/24 06:00 06/20/24 04:46 Levothyroxine 75 Mcg Tablet PO Not Given DAILY@0600 [facility] Midodrine 10 mg 06/12/24 08:15 06/20/24 09:05 Midodrine Hcl 5 Mg Tablet PO Not Given TIDCM [facility] Nutritional Formula (Lactose Free) 120 ml 06/07/24 17:00 06/20/24 09:05 Glucerna Shake 120 Ml Liquid PO Not Given TIDCM [facility] Ondansetron HCl 4 mg 06/04/24 17:53 Ondansetron 4 Mg/2 Ml Vial IV Q8H PRN PRN NAUSEA/VOMITING Senna/Docusate Sodium 2 tablet 06/04/24 22:00 06/20/24 09:06 Senna/Docusate Sodium 1 Tablet PO Not Given BID [facility] Sodium Chloride 10 - 40 ml 06/04/24 21:54 06/19/24 23:03 0.9% Saline Lock 10 Ml Syringe IV 10 ml UD PRN Administration SALINE FLUSH [facility] Medical History Abrasion Insulin dependent diabetes mellitus Thyroid disease Diabetes Non-smoker History of edema Nephrolithiasis Uncontrolled diabetes mellitus Lactose intolerance Debility Bilateral edema of lower extremity Osteoarthritis Stroke/cerebrovascular accident Hypothyroid High cholesterol Diabetes Hypertension Home Medications ?Medication ?Instructions ?Recorded ?Last Taken ?Type aspirin 325 mg tablet 325 mg PO DAILY@0800 [facility] 08/20/16 05/31/24 History MAINTENANCE atenolol 25 mg tablet 25 mg PO QHS BP 08/20/16 11/19/23 22:55 History atorvastatin 40 mg tablet 40 mg PO QHS CHOLESTEROL 08/20/16 05/30/24 History levothyroxine 75 mcg tablet 75 mcg PO DAILY THYROID 08/20/16 06/04/24 History nitroglycerin 0.4 mg sublingual 0.4 mg sublingual Q5M PRN Chest 08/20/16 Unknown History tablet Pain insulin glargine-yfgn 100 unit/mL 27 unit subcut QHS Diabetes 12/19/22 11/19/23 23:25 History (3 mL) subcutaneous pen insulin lispro 100 unit/mL 9 unit subcut TID Diabetes 12/19/22 11/20/23 History subcutaneous pen (Humalog KwikPen (U-100) Insulin) glucosamine-chondroitin 250 mg-200 2 tab PO TID Supplement 11/16/23 Unknown History mg tablet (Osteo Bi-Flex) losartan 100 mg tablet 100 mg PO DAILY BP 11/16/23 06/04/24 History omega 2-zrx-pwc-fish oil 1,200 mg 1 cap PO BID Supplement 11/16/23 11/20/23 History (144 mg-216 mg) capsule (Fish Oil) acetaminophen 500 mg tablet 1,000 mg (2 x 500 mg) PO Q6H PRN 12/07/23 Unknown Rx PRN Pain Score 1-10 #0 tabs furosemide 40 mg tablet 40 mg PO DAILY Fluid retention 30 12/07/23 Unknown Rx days #30 tabs empagliflozin 25 mg tablet 25 mg PO DAILY Blood sugar 05/28/24 Unknown History (Jardiance) meloxicam 7.5 mg tablet 7.5 mg PO DAILY Osteoarthristis 05/28/24 Unknown History mupirocin 2 % topical ointment 1 applic topical TID Skin condition 05/28/24 Unknown History dexamethasone 4 mg tablet 8 mg (2 x 4 mg) PO TID Steroid #0 05/31/24 05/31/24 Rx tabs insulin lispro 100 unit/mL See Protocol subcut ACHS Blood 05/31/24 Unknown Rx subcutaneous pen (Humalog KwikPen sugar #0 mL (U-100) Insulin) nutrition tx glu 120 ml PO TIDCM supplement #0 mL 05/31/24 Unknown Rx intol,lac-free,soy-fiber 0.06 gram-1.2 kcal/mL liquid (Glucerna 1.2 Jai) hydrochlorothiazide 12.5 mg capsule 12.5 mg PO DAILY bp 06/04/24 Unknown History Allergy/AdvReac Type Severity Reaction Status Date / Time iodine Allergy Swelling Verified 05/28/24 19:28 Penicillins AdvReac Mild PT UNSURE Verified 05/28/24 19:28 OF REACTION Surgical History History of tonsillectomy History of appendectomy History of cholecystectomy Social History household members: none Smoking Status: Never smoker alcohol intake: never substance use type: does not use Review of Systems (Anesthesia) ROS Narrative System reviewed and no additional complaints, except as documented.
--- NOTE | 2024-06-20 13:23 | OP.CCLET_ITS ---
06/20/2024 Demetris Fuentes [address] [place] [address] Re : Upper GI endoscopy procedure for Dewayne Archer Dear Dr. Fuentes This procedure was performed on June. My impressions and recommendations are as follows: Impressions : - No gross lesions in the entire esophagus. - Non-bleeding gastric ulcers with no stigmata of bleeding. - Oozing duodenal ulcers with a visible vessel. Treatment not successful. Treated with argon plasma coagulation (APC). Clips were placed. 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 - Feeding tube placement was successfully performed. - No specimens collected. Recommendations : - [facility]. - Diet per speech therapy. - Continue present medications. My findings are described in the full procedure note, which is enclosed. If I can be of further assistance, please feel free to contact me at . Sincerely, Federico Sanders, 06/20/2024 1:23:05 PM This report has been signed electronically.
--- NOTE | 2024-06-20 13:23 | OP.EGD_ITS ---
Patient Name: Dewayne Arcehr Procedure Date: 06/20/2024 12:22 PM Date of : 1940 Age: 83 Procedure: Upper GI endoscopy Indications: Dysphagia Providers: Federico Sanders DO Referring MD: Henry Hernandez Md Medicines: Monitored Anesthesia Care Patient Profile: This is an 83 year old male. Refer to note in patient chart for documentation of history and physical. Patient has symptoms of dysphagia with both liquids and solids. Complications: No immediate complications. Procedure: Pre-Anesthesia Assessment: - Prior to the procedure, a History and Physical was performed, and patient medications and allergies were reviewed. The patient is competent. The risks and benefits of the procedure and the sedation options and risks were discussed with the patient. All questions were answered and informed consent was obtained. Patient identification and proposed procedure were verified by the physician in the pre-procedure area. Mental Status Examination: normal. Airway Examination: normal oropharyngeal airway and neck mobility. Respiratory Examination: clear to auscultation. CV Examination: normal. Prophylactic Antibiotics: The patient does not require prophylactic antibiotics. Prior Anticoagulants: The patient has taken no anticoagulant or antiplatelet agents except for NSAID medication. ASA Grade Assessment: II - A patient with mild systemic disease. After reviewing the risks and benefits, the patient was deemed in satisfactory condition to undergo the procedure. The anesthesia plan was to use monitored anesthesia care (MAC). Immediately prior to administration of medications, the patient was re-assessed for adequacy to receive sedatives. The heart rate, respiratory rate, oxygen saturations, blood pressure, adequacy of pulmonary ventilation, and response to care were monitored throughout the procedure. The physical status of the patient was re-assessed after the procedure. After obtaining informed consent, the endoscope was passed under direct vision. Throughout the procedure, the patient's blood pressure, pulse, and oxygen saturations were monitored continuously. The Endoscope was introduced through the mouth, and advanced to the second part of duodenum. The upper GI endoscopy was accomplished without difficulty. The patient tolerated the procedure well. Scope In: 12:34:39 PM Scope Out: 1:09:33 PM Total Procedure Duration Time 0 hours 34 minutes 54 seconds Findings: No gross lesions were noted in the entire esophagus. Three non-bleeding cratered gastric ulcers with no stigmata of bleeding were found in the gastric antrum. The largest lesion was 12 mm in largest dimension. Many oozing cratered duodenal ulcers with a visible vessel were found in the first portion of the duodenum. The largest lesion was 20 mm in largest dimension. Coagulation for hemostasis using argon plasma at 0.3 liters/minute and 30 torres was unsuccessful. To stop active bleeding, two hemostatic clips were successfully placed. 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 Bleeding had stopped at the end of the procedure. A 12 Fr nasogastric tube was placed through the nares into the esophagus. Under endoscopic guidance, the tube was advanced into the antrum. Placement was confirmed by scope visualization. Impression: - No gross lesions in the entire esophagus. - Non-bleeding gastric ulcers with no stigmata of bleeding. - Oozing duodenal ulcers with a visible vessel. Treatment not successful. Treated with argon plasma coagulation (APC). Clips were placed. 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 - Feeding tube placement was successfully performed. - No specimens collected. Recommendation: - [facility]. - Diet per speech therapy. - Continue present medications. Procedure Code(s): --- Professional --- 90940, 59, Esophagogastroduodenoscopy, flexible, transoral; with control of bleeding, any method 10929, 51, Esophagogastroduodenoscopy, flexible, transoral; with insertion of intraluminal tube or catheter CPT copyright 2021 [employer]. All rights reserved. The codes documented in this report are preliminary and upon curriculum writer review may be revised to meet current compliance requirements. Federico Sanders DO 06/20/2024 1:23:05 PM This report has been signed electronically. Number of Addenda: 0 Note Initiated On: 06/20/2024 12:22 PM
--- NOTE | 2024-06-20 13:27 | PCM.POST.ANE ---
Anesthesia: Postop Eval I Current Vital Signs Temperature: 97.2 F Pulse Rate: 92 Blood Pressure: 103/45 Respiratory Rate: 18 Pulse Ox: 98 Oxygen Delivery Method: Nasal Cannula Oxygen Flow Rate (L/min): 2 Assessment Airway patent: Yes Spontaneous unlabored respirations: Yes Mental status: Asleep nausea: No Vomiting: No Anesthesia Complication: No Fluid Hydration Crystalloid volume administer (ml): 120 Total IV fluid infused: 120 Progress Note Anesthesia document: Postop Eval 1 completed: Yes
[2024-06-20 14:22] LABS: Bedside Glucose 290 mg/dL (74-106)
[2024-06-20] MEDS: Pantoprazole Sodium 40 MG in 0.9% Normal Saline (100mL MB+) 100 ML 330 MG IV ×2 (14:41→21:14)
[2024-06-20] MEDS: Enoxaparin 100 MG/ML Syringe SC ×2 (14:42→21:13)
[2024-06-20] MEDS: 0.9% Saline Lock 10 ML Syringe IV (14:42)
[2024-06-20] MEDS: Menthol/Lanolin/Calamine/Znox 113 GM Tube 1 APPLIC TOPICAL ×2 (14:42→21:16)
[2024-06-20] MEDS: Jevity 1.5 1,000 ML 10 ML GT (15:34)
[2024-06-20] MEDS: Insulin Lispro 100 UNIT/ML INSULN.PEN SC ×2 (18:22→23:53)
[2024-06-20] MEDS: Midodrine HCl 5 MG Tablet 10 MG NG (18:23)
[2024-06-20 18:50] LABS: Bedside Glucose 334 mg/dL (74-106)
[2024-06-20] MEDS: Senna/Docusate Sodium 1 Tablet 2 TABLET NG (21:13)
[2024-06-20] MEDS: Atorvastatin Calcium 40 MG Tablet PO (21:13)
[2024-06-20] MEDS: Insulin Glargine-YFGN 100 UNIT/ML Pen 20 UNIT SC (21:15)
[2024-06-20] MEDS: Acetaminophen 500 MG Tablet 1000 MG NG (21:15)
[2024-06-20 21:33] LABS: Anion Gap 13 (5-15); BUN 70 mg/dL (7-18); BUN/Creat Ratio 27.3 RATIO (10-20); Chloride 123 mmol/L (98-107); Creatinine, Serum 2.56 mg/dL (0.70-1.30); EST Glomerular Filtration Rate 26 mL/min (>60); Est Glom Filt Rate - Afr Amer 31 mL/min (>60); Estimated Creatinine Clearance 24.92 ml/min; Glucose 351 mg/dL (74-106); Magnesium 2.9 mg/dL (1.6-2.6); Phosphorus 4.9 mg/dL (2.5-4.9); Potassium 4.5 mmol/L (3.5-5.1); Sodium Level 152 mmol/L (136-145)
[2024-06-21 00:13] LABS: Bedside Glucose 284 mg/dL (74-106)
[2024-06-21 01:02] LABS: Bedside Glucose 320 mg/dL (74-106)
[2024-06-21 02:00] VITALS: BP 110/64; PULSE 103; RESP 19; TEMP 36.2; O2SAT 96
[2024-06-21] MEDS: Levothyroxine 75 MCG Tablet NG (05:57)
[2024-06-21] MEDS: Acetaminophen 500 MG Tablet 1000 MG NG ×3 (05:57→21:53)
[2024-06-21] MEDS: Insulin Lispro 100 UNIT/ML INSULN.PEN SC ×4 (05:58→23:52)
[2024-06-21 07:11] LABS: Bedside Glucose 280 mg/dL (74-106)
[2024-06-21 07:14] LABS: Hematocrit 23.2 % (40-54); Hemoglobin 7.1 g/dL (13.0-16.5); Mean Corp Hgb Conc 30.6 g/dL (32-36); Mean Corpuscular Hgb 28.4 pg (27.0-32.0); Mean Corpuscular Volume 92.8 fL (80-94); Mean Platelet Vol. 10.5 fl (6.2-12.0); Platelet Count 331 K/mm3 (150-450); RBC Distribution Width CV 17.9 % (11.6-14.6); RBC Distribution Width SD 57.8 fl (35.1-43.9); White Blood Count 17.7 K/mm3 (4.4-11.0)
[2024-06-21 07:17] VITALS: O2SAT 96
[2024-06-21 07:54] LABS: Phosphorus 4.1 mg/dL (2.5-4.9)
[2024-06-21 07:55] LABS: Anion Gap 4 (5-15); BUN 74 mg/dL (7-18); BUN/Creat Ratio 24.4 RATIO (10-20); Chloride 124 mmol/L (98-107); Creatinine, Serum 3.03 mg/dL (0.70-1.30); EST Glomerular Filtration Rate 21 mL/min (>60); Est Glom Filt Rate - Afr Amer 25 mL/min (>60); Estimated Creatinine Clearance 21.05 ml/min; Glucose 322 mg/dL (74-106); Magnesium 3.1 mg/dL (1.6-2.6); Potassium 4.4 mmol/L (3.5-5.1); Sodium Level 151 mmol/L (136-145)
[2024-06-21 08:05] VITALS: BP 103/48; PULSE 92; RESP 18; TEMP 36.2; O2SAT 99
[2024-06-21] MEDS: Midodrine HCl 5 MG Tablet 10 MG NG ×3 (08:09→16:27)
--- NOTE | 2024-06-21 09:26 | CT_ITS ---
We are attempting to reach an attending provider to discuss findings. An addendum with communication details will be sent when the communication is complete. STUDY: CT BRAIN WITHOUT CONTRAST REASON FOR EXAM: Male, 83 years old. Mental status change RADIATION DOSAGE (If Supplied By Facility): CTDIvol = ( 44.99 ) mGy, DLP = ( 880.47 ) mGycm TECHNIQUE: Transaxial CT imaging of the brain was performed without administration of intravenous contrast material. Individualized dose optimization techniques were used for this CT. COMPARISON: June 05, 2024 FINDINGS: Normal soft tissue structures. Normal calvarium. There is moderate cerebral atrophy with widening of the extra-axial spaces and ventricular dilatation. There are areas of decreased attenuation within the white matter tracts of the supratentorial brain, consistent with microvascular disease changes. There are new diminished density regions of the bilateral occipital lobes and cerebellar hemispheres consistent with recent infarct. There is mild increased density at the periphery of the right occipital lobe with probable cortical laminar necrosis consistent with subacute status. Normal basal ganglia and thalami. Normal brainstem. There is no intracranial hemorrhage. Normal visualized paranasal sinuses. CT/Brain/Head without Contrast IMPRESSION: Chronic involutional changes of the brain. Recent bilateral occipital and cerebellar infarct. No hemorrhage. Electronically Signed: Sagar Moseley MD at 10:19 EST ,
--- NOTE | 2024-06-21 10:28 | PCM.PN.HOSP ---
Reason for Visit Reason for Visit: Diagnoses Hypothyroidism, unspecified (06/04/24) Type 2 diabetes mellitus with hyperglycemia (06/04/24) Unspecified protein-calorie malnutrition (06/04/24) Obesity, unspecified (06/04/24) Hyperlipidemia, unspecified (06/04/24) Other specified diseases of spinal cord (06/04/24) Disease of spinal cord, unspecified (06/04/24) Essential (primary) hypertension (06/04/24) Cerebral infarction, unspecified (06/04/24) Acute respiratory failure with hypoxia (06/04/24) Unspecified osteoarthritis, unspecified site (06/04/24) Dysphagia, unspecified (06/04/24) Other injury of unspecified body region, initial encounter (06/04/24) Arthrodesis status (06/04/24) Subjective Subjective Saw patient at bedside this morning. Patient did not appear to be mentating as well as he had been on previous days. He appeared more fatigued and was delayed with nodding or shaking his head with questions. He did not open his eyes or squeeze my hands on command. Discussed with Dr. Hernandez and Dr. Chu who also noted these changes. Patient did have worsening of his kidney function and slightly worsening BUN level, but it seems less likely that uremia would be the cause of the symptoms. CT brain without contrast was obtained for further evaluation, and unfortunately he was found to have new diminished density regions of the bilateral occipital lobes and cerebellar hemispheres consistent with recent infarct. Discussed over the phone at length with [facility] neurology. Patient unfortunately cannot have a CTA head/neck done given his worsening kidney function and contrast allergy. MRI also cannot be done as there is concern that the clips that were placed by Dr. Sanders yesterday for his stomach ulcers are not MRI compatible. Unfortunately, this rules out any further imaging for the patient for now. On review of prior imaging, patient had MRA head/neck done on 05/29 that showed approximate 50% stenosis of the right ICA and less than 50% stenosis of the left ICA, otherwise no vascular lesions noted. Patient had echo with bubble study done back in July 2022 that was negative for shunt. Patient has not been in A-fib on the monitor during this hospitalization. Given these things, neurology recommended that we continue on therapeutic anticoagulation with heparin drip and repeat a CT brain without contrast [address]. Unfortunately there is no other change to management that can be made at this time. I saw the patient at bedside after talking with neurology. Patient was laying back in bed and appeared fairly comfortable. However with any questions he answered yep even if that was not an appropriate response. He would not open his eyes on command or squeeze my hands on command. Had lengthy discussion with patient's son Demetris over the phone this afternoon. Discussed all of the findings and my conversation with neurology with him. Discussed with him that unfortunately we are not able to microsoft exchange administrator and there is certainly a chance that his neurologic status continues to worsen. I did discuss with him that given the patient's likely hospital course with multiple complications and this most recent neurologic complication, his prognosis appears grim. Patient is a DNR CCA DNI CODE STATUS. Demetris preferred to continue patient's current management for now including tube feeds and medications, but noted that he would be open to discussing conservative measures with care for the patient such as hospice care in coming days if patient does not improve. Objective Data Objective Data Vital Signs: Vital Signs Temp Pulse Resp BP Pulse Ox O2 Del Method O2 Flow Rate 97.2 F L 92 18 103/48 L 99 Nasal Cannula 3 06/21/24 08:05 06/21/24 08:05 06/21/24 08:05 06/21/24 08:05 06/21/24 08:05 06/21/24 08:05 06/21/24 08:05 FiO2 30 06/20/24 11:50 Oxygen Flow Rate (L/min) 3 Oxygen Delivery Method Nasal Cannula Weight: 105.9 kg Body Mass Index (BMI) 36.6 Intake & Output: Intake and Output for Last 24 Hours 06/19/24 06/20/24 06/21/24 23:59 23:59 23:59 Intake Total 520.83 / 520.83 450 / 450 206 / 206 Output Total 1740 / 1740 520 / 520 100 / 100 Balance -1219.17 / -1219.17 -70 / -70 106 / 106 Medical Nutrition Assessment Dietitian: Malnutrition Criteria Met Start: 06/16/24 10:42 Freq: Status: Active Protocol: Document 06/16/24 10:43 SB (Rec: 06/16/24 10:43 SB [id number]) Nutrition Malnutrition Evidence of Malnutrition Exists Yes Malnutrition (severe): Acute Illness/Injury Evidenced By Suboptimal Energy Intake ( Severe),Weight Loss (Severe) Intake Problem Inadequate Oral Intake Etiology related to mental status Signs/Symptoms as evidenced by NPO status. Status Active Problem Clinical Problem Acute Disease or Injury Related Malnutrition Etiology severe related to inadequate oral intake Signs/Symptoms as evidenced by PO meeting <50 % of estimated nutrition needs x 1 week, 7% unintentional weight loss x 2 weeks, and 2+ pitting edema in L arm. Status Active Problem Altered Nutrient-Related Laboratory Values Etiology related to endocrine dysfunction/diabetes Signs/Symptoms as evidenced by A1C 11% and glucose 254 Status Active Problem Recommendation Dietitian Recommendations/Changes Recommend advanced diet as tolerated to liberal regular diet d/t signs and symptoms of malnutrition, per INTERLOCKING PAVEMENT INSTALLER consistency/texture recommendations. Will d/c glucerna shake d/t NPO. Recommend initiating nutrition support in 24-48 hours if pt is still NPO. If nutrition support is initiated recommend Jevity 1. 5Cal goal rate 50ml/hr with 130ml flushes every 4 hours to provide 1800 calories, 76g protein, and 1692ml total fluid/day. Wound start at 10ml /hr d/t risk of refeeding syndrome and increase by 10ml every 8-12 hours as tolerated until goal rate is achieved. Will monitor weight, as available. Reviewed and approved by Jeanna Seals RDN, MANISHA. Lab / Micro Data 06/21/24 11:37 06/21/24 11:37 Labs: Laboratory Results - last 24 hr 06/20/24 13:57: POC Glucose 290 H 06/20/24 18:18: POC Glucose 334 H 06/20/24 21:05: Sodium 152 H, Potassium 4.5, Chloride 123 H, Carbon Dioxide 15.0 L, Anion Gap 13, BUN 70 H, Creatinine 2.56 H, Estim Creat Clear Calc 24.92, Est GFR (MDRD) Af Amer 31 L, Est GFR (MDRD) Non-Af 26 L, BUN/Creatinine Ratio 27.3 H, Glucose 351 H, Calcium 8.0 L, Phosphorus 4.9, Magnesium 2.9 H 06/20/24 21:08: POC Glucose 320 H 06/20/24 23:52: POC Glucose 284 H 06/21/24 05:57: POC Glucose 280 H 06/21/24 06:36: WBC 17.7 H, RBC 2.50 L, Hgb 7.1 L, Hct 23.2 L, MCV 92.8, MCH 28.4, MCHC 30.6 L, RDW Std Deviation 57.8 H, RDW Coeff of Tyesha 17.9 H, Plt Count 331, MPV 10.5, Sodium 151 H, Potassium 4.4, Chloride 124 H, Carbon Dioxide 23.0, Anion Gap 4 L, BUN 74 H, Creatinine 3.03 H, Estim Creat Clear Calc 21.05, Est GFR (MDRD) Af Amer 25 L, Est GFR (MDRD) Non-Af 21 L, BUN/Creatinine Ratio 24.4 H, Glucose 322 H, Calcium 8.0 L, Phosphorus 4.1, Magnesium 3.1 H Micro: Microbiology 06/17/24 12:51 Wound - Neck Gram Stain - Final 06/17/24 12:51 Wound - Neck Wound Culture - Final Enterobacter cloacae complex 06/17/24 12:51 Wound - Neck Anaerobic Culture - Preliminary No growth in 48 hours. 06/12/24 08:30 Blood Culture (Wb) - Anticubital Right Blood Culture - Final No growth in 5 days. 06/11/24 08:30 Urine Catheter - Catheter Urine Culture - Final Klebsiella oxytoca Radiography Diagnostic Testing: Radiology Impression Brain CT 06/21/24 09:26 IMPRESSION: Chronic involutional changes of the brain. Recent bilateral occipital and cerebellar infarct. No hemorrhage. Electronically Signed: Sagar Moseley MD at 10:19 EST Reading Location ID and State: [address] [place] [address] , Service support , Physical Exam Const Constitutional Narrative: Elderly male, fatigued appearing and mentation has worsened, laying back in bed with neck brace in place, not opening his eyes or responding to any commands today. HEENT normocephalic, head/scalp atraumatic, hearing grossly normal bilaterally and nasal mucous membranes and turbinates normal Neck Neck Narrative: Neck brace in place. Wound VAC in place with multiple drains noted with bloody to serosanguineous output. Stable. Lymph Lymphatic: no lymphadenopathy noted Chest inspection of chest normal Resp normal respiratory effort, no use of accessory muscles and clear to auscultation bilaterally Cardio regular rate, regular rhythm, no murmurs and peripheral pulses 2+ throughout GI normal to inspection, nondistended, normoactive bowel sounds, soft to palpation, non-tender and non-distended Extremity no pedal edema Extremity Narrative: Right hand with + 1-2 pitting edema. Notably good radial pulse and patient has been on anticoagulation throughout this hospitalization. No lower extremity edema and minimal left hand edema. Neuro Neuro Narrative: Mental status worsened on 06/21, patient unfortunately not responding to any commands and unclear if patient has the ability to move all extremities given his significant general weakness. Assessment & Plan Assessment/Plan (1) Acute hypoxemic respiratory failure: (2) Status post cervical spinal fusion: PLAN: Plan Patient is an 83-year-old male who presented to [facility] ED on 06/04/2024 from the TCU for planned cervical spine procedure. Hospital course complicated by bilateral pulmonary emboli with right heart strain, sepsis secondary to Klebsiella UTI, KELVIN, metabolic encephalopathy and suspected acute CVA. 1. Acute hypoxic respiratory failure secondary to bilateral pulmonary emboli with right heart strain, improving ? Oil Producer followed. Had postoperative acute respiratory failure on 06/05 requiring transfer to the ICU. CTA chest showed bilateral PE with right heart strain. Echo 06/06 showed EF 60%, severely dilated RV, moderately decreased RV systolic function. Treated with therapeutic Lovenox for the majority of this admission but changed to heparin drip on 06/21 given worsening renal function. Eventual plan is to transition to Eliquis once wound VAC changes are complete but this is on hold for now given clinical worsening as noted below. Stable on 4 L nasal cannula at rest currently. Monitor. 2. 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 Orthopedic surgery and plastic surgery following. Patient with initial C3-T1 fusion surgery with skin flap coverage on 06/04. Unfortunately had increasing serosanguineous to bloody output from the wound VAC in recent days along with worsening swelling near the incision site. CT C-spine on 06/17 showed a new 7 cm fluid collection in the posterior paraspinous musculature consistent with a postop hematoma. S/p incision and drainage with possible closure of the hematoma on 06/17, with replacement of drain and wound VAC. Cervical collar back in place. Will continue to follow closely and appreciate orthopedic and plastic surgery assistance. 3. Suspected acute CVA ? Patient with apparent mental status change on morning of 06/21. Notably not able to participate in NIH scoring due to generalized weakness. CT brain without contrast showed new diminished density regions of the bilateral occipital lobes and cerebellar hemispheres consistent with recent infarct. Discussed with [facility] neurology and patient unfortunately unable to have CTA head/neck done due to worsening kidney function and contrast allergy, and also not able to have MRI done due to recent clips placed for gastric ulcers and concern that these are not MRI compatible. Continuing heparin drip and high density statin, unfortunately no other changes to management can be made at this time. NIH scoring discontinued as patient unable to participate. Will repeat CT brain tomorrow morning at [address] brain today. Continue to monitor. Per neurology, given no changes to management expected there is no need for formal neurology consult. 4. Acute metabolic encephalopathy with dysphagia ? Speech therapy and nutrition following. Unclear etiology but suspected this was in part due to sedating medications along with overall generalized weakness. Was determined patient cannot take in p.o. safely and Dobbhoff tube was placed by GI on 06/20. Tube feeds initiated on 06/20, advancing rate as tolerated. Refeeding labs with no significant abnormalities to this point. Unfortunately had worsening mentation on 06/21 due to CVA as noted above. Continue to avoid sedating medications as able. 5. Anemia ? Multifactorial secondary to blood loss and drainage from wound VAC, blood loss from GI bleed and lab draws. Hemoglobin 6.8 on 06/19, s/p 1 unit of blood with repeat hemoglobin 7.7 on 06/20. Continue to monitor CBC daily and transfuse for hemoglobin less than 7. 6. Upper GI bleed ? S/p EGD with Dr. Sanders on 06/20 for Dobbhoff tube placement, was found to have several duodenal ulcers with some active bleeding noted. 2 clips were placed with cessation of bleeding. Suspect ulcers were largely secondary to acute stress state, lack of recent p.o. intake and exacerbated by therapeutic anticoagulation. Will continue treatment with IV PPI twice daily. 7. Hypernatremia ? Presume secondary to poor p.o. intake. Most recent sodium 152 on 06/21. Free water flushes added to tube feeds. Monitor daily sodium level. 8. Worsening KELVIN ? Nephrology consulted. Baseline creatinine appears to be around 1.2. Creatinine worsened post procedure likely due to hypotension in setting of bilateral PE and UTI. Peak of 2.49 on 06/11. Creatinine has stabilized around 1.7-1.9 but unfortunately had significant worsening on 06/21 to creatinine 3.13. Urine output has decreased but patient still is nonoliguric. Suspect worsening creatinine is due to prerenal KELVIN from n.p.o. status and maintenance IV fluids over discontinued prior to Dobbhoff tube placement. Appreciate nephrology recommendations. Continue to monitor daily BMP and urine output. 9. Sepsis secondary to Klebsiella UTI ? Urine culture 06/11 grew greater than 100,000 Klebsiella. Blood cultures with no growth. Blood pressure improved with IV fluid resuscitation. Completed IV ceftriaxone for 7-day course total on 06/17. 10. Urinary retention ? Had Jeffrey catheter placed early in hospitalization due to retention. Continue Jeffrey at this time. Chronic medical conditions: ? Class II obesity: BMI 35 on admit. Complicates hospital course, care and prognosis. ? Type 2 diabetes mellitus: Patient now with worsening blood sugars after starting tube feeds. Treating with Lantus 20 units at night and 8 units every 6 hours with sliding scale insulin, adjust as needed. ? Hypertension: Holding home atenolol, losartan and Jardiance. ? Hyperlipidemia: Continue home statin. ? Hypothyroidism: Continue Synthroid. DVT prophylaxis: Not indicated, on heparin drip CODE STATUS: DNR CCA, DNI Expected disposition: TBD Total clinical time spent by myself addressing the patient's medical issues, reviewing all the data, and collaborating with patient's care team: 50 minutes. Charges/Coding Visit Charges Inpatient E&M: [id number] [facility] Hosp L3
[2024-06-21] MEDS: Dextrose 5%-Water (1000mL Bag) 1,000 ML 200 ML IV (10:43)
[2024-06-21] MEDS: Menthol/Lanolin/Calamine/Znox 113 GM Tube 1 APPLIC TOPICAL ×2 (10:47→21:52)
[2024-06-21] MEDS: Pantoprazole Sodium 40 MG in 0.9% Normal Saline (100mL MB+) 100 ML 330 MG IV ×2 (10:53→21:55)
[2024-06-21 11:05] LABS: Urine Sodium 8 mmol/L (Not Establ.)
[2024-06-21] MEDS: HEPARIN/D5w 25,000 UNITS 25,000 UNITS/250 ML IV.SOLN. 15 UNITS CONT INF (11:13)
[2024-06-21] MEDS: 0.9% Saline Lock 10 ML Syringe IV ×2 (11:14→21:55)
[2024-06-21 11:47] LABS: Hematocrit 22.9 % (40-54); Hemoglobin 7.1 g/dL (13.0-16.5); Mean Corpuscular Hgb 28.9 pg (27.0-32.0); Mean Corpuscular Volume 93.1 fL (80-94); Mean Platelet Vol. 10.3 fl (6.2-12.0); Platelet Count 338 K/mm3 (150-450); RBC Distribution Width CV 17.9 % (11.6-14.6); RBC Distribution Width SD 56.9 fl (35.1-43.9); Red Blood Count 2.46 M/mm3 (4.6-6.2); White Blood Count 17.2 K/mm3 (4.4-11.0)
--- NOTE | 2024-06-21 11:48 | NURSING ---
Unable to complete NIHSS as patient can not respond appropriately to any questions or follow commands.
[2024-06-21] MEDS: Insulin Lispro 100 UNIT/ML INSULN.PEN 8 UNIT SC ×3 (12:02→23:54)
[2024-06-21 12:29] LABS: Bedside Glucose 262 mg/dL (74-106)
[2024-06-21 12:30] LABS: Albumin, Serum 2.1 g/dL (3.2-5.0); BUN 77 mg/dL (7-18); BUN/Creat Ratio 24.6 RATIO (10-20); Calcium,Total 8.1 mg/dL (8.5-10.1); Chloride 125 mmol/L (98-107); Creatinine, Serum 3.13 mg/dL (0.70-1.30); EST Glomerular Filtration Rate 20 mL/min (>60); Est Glom Filt Rate - Afr Amer 25 mL/min (>60); Estimated Creatinine Clearance 20.38 ml/min; Glucose 296 mg/dL (74-106); Phosphorus 3.8 mg/dL (2.5-4.9); Potassium 4.2 mmol/L (3.5-5.1); Sodium Level 152 mmol/L (136-145)
--- NOTE | 2024-06-21 12:58 | PN.ORTHO_ITS ---
Subjective Subjective Seen with Dr. Hernandez. New infacts on CT, awaiting MRI. Nephrology and neurology consults. Switched Lovenox to Heparin ggt. On 3-4L of O2. Patient continues to answer all questions with either yes or no. Moves all 4 limbs when prompted. Objective Data Objective Data Vital Signs: Vital Signs Temp Pulse Resp BP Pulse Ox O2 Del Method O2 Flow Rate 97.2 F L 92 18 103/48 L 99 Nasal Cannula 4 06/21/24 08:05 06/21/24 08:05 06/21/24 08:05 06/21/24 08:05 06/21/24 08:05 06/21/24 10:00 06/21/24 10:17 FiO2 30 06/20/24 11:50 Oxygen Flow Rate (L/min) 4 Oxygen Delivery Method Nasal Cannula Weight: 233 lb 7.512 oz Body Mass Index (BMI) 36.6 Intake & Output: Intake and Output for Last 24 Hours 06/19/24 06/20/24 06/21/24 23:59 23:59 23:59 Intake Total 520.83 / 520.83 450 / 450 547.00 / 547.00 Output Total 1740 / 1740 520 / 520 100 / 100 Balance -1219.17 / -1219.17 -70 / -70 447.00 / 447.00 Medical Nutrition Assessment Dietitian: Malnutrition Criteria Met Start: 06/16/24 10:42 Freq: Status: Active Protocol: Document 06/16/24 10:43 SB (Rec: 06/16/24 10:43 SB [id number]) Nutrition Malnutrition Evidence of Malnutrition Exists Yes Malnutrition (severe): Acute Illness/Injury Evidenced By Suboptimal Energy Intake ( Severe),Weight Loss (Severe) Intake Problem Inadequate Oral Intake Etiology related to mental status Signs/Symptoms as evidenced by NPO status. Status Active Problem Clinical Problem Acute Disease or Injury Related Malnutrition Etiology severe related to inadequate oral intake Signs/Symptoms as evidenced by PO meeting <50 % of estimated nutrition needs x 1 week, 7% unintentional weight loss x 2 weeks, and 2+ pitting edema in L arm. Status Active Problem Altered Nutrient-Related Laboratory Values Etiology related to endocrine dysfunction/diabetes Signs/Symptoms as evidenced by A1C 11% and glucose 254 Status Active Problem Recommendation Dietitian Recommendations/Changes Recommend advanced diet as tolerated to liberal regular diet d/t signs and symptoms of malnutrition, per STEEL FLOOR PAN PLACING SUPERVISOR consistency/texture recommendations. Will d/c glucerna shake d/t NPO. Recommend initiating nutrition support in 24-48 hours if pt is still NPO. If nutrition support is initiated recommend Jevity 1. 5Cal goal rate 50ml/hr with 130ml flushes every 4 hours to provide 1800 calories, 76g protein, and 1692ml total fluid/day. Wound start at 10ml /hr d/t risk of refeeding syndrome and increase by 10ml every 8-12 hours as tolerated until goal rate is achieved. Will monitor weight, as available. Reviewed and approved by Jeanna Seals RDN, LD. Lab / Micro Data 06/21/24 11:37 06/21/24 11:37 Labs: Laboratory Results - last 24 hr 06/20/24 13:57: POC Glucose 290 H 06/20/24 18:18: POC Glucose 334 H 06/20/24 21:05: Sodium 152 H, Potassium 4.5, Chloride 123 H, Carbon Dioxide 15.0 L, Anion Gap 13, BUN 70 H, Creatinine 2.56 H, Estim Creat Clear Calc 24.92, Est GFR (MDRD) Af Amer 31 L, Est GFR (MDRD) Non-Af 26 L, BUN/Creatinine Ratio 27.3 H , Glucose 351 H, Calcium 8.0 L, Phosphorus 4.9, Magnesium 2.9 H 06/20/24 21:08: POC Glucose 320 H 06/20/24 23:52: POC Glucose 284 H 06/21/24 05:57: POC Glucose 280 H 06/21/24 06:36: WBC 17.7 H, RBC 2.50 L, Hgb 7.1 L, Hct 23.2 L, MCV 92.8, MCH 28.4, MCHC 30.6 L, RDW Std Deviation 57.8 H, RDW Coeff of Tyesha 17.9 H, Plt Count 331, MPV 10.5, Sodium 151 H, Potassium 4.4, Chloride 124 H, Carbon Dioxide 23.0, Anion Gap 4 L, BUN 74 H, Creatinine 3.03 H, Estim Creat Clear Calc 21.05, Est GFR (MDRD) Af Amer 25 L, Est GFR (MDRD) Non-Af 21 L, BUN/Creatinine Ratio 24.4 H , Glucose 322 H, Calcium 8.0 L, Phosphorus 4.1, Magnesium 3.1 H 06/21/24 09:25: Ur Random Sodium 8, Urine Creatinine 162.00 06/21/24 11:37: WBC 17.2 H, RBC 2.46 L, Hgb 7.1 L, Hct 22.9 L, MCV 93.1, MCH 28.9, MCHC 31.0 L, RDW Std Deviation 56.9 H, RDW Coeff of Tyesha 17.9 H, Plt Count 338, MPV 10.3, Sodium 152 H, Potassium 4.2, Chloride 125 H, Carbon Dioxide 22.0, BUN 77 H, Creatinine 3.13 H, Estim Creat Clear Calc 20.38, Est GFR (MDRD) Af Amer 25 L, Est GFR (MDRD) Non-Af 20 L, BUN/Creatinine Ratio 24.6 H, Glucose 296 H, Calcium 8.1 L, Phosphorus 3.8, Albumin 2.1 L 06/21/24 12:00: POC Glucose 262 H Micro: Microbiology 06/17/24 12:51 Wound - Neck Gram Stain - Final 06/17/24 12:51 Wound - Neck Wound Culture - Final Enterobacter cloacae complex 06/17/24 12:51 Wound - Neck Anaerobic Culture - Preliminary No growth in 48 hours. 06/12/24 08:30 Blood Culture (Wb) - Anticubital Right Blood Culture - Final No growth in 5 days. 06/11/24 08:30 Urine Catheter - Catheter Urine Culture - Final Klebsiella oxytoca Radiography Diagnostic Testing: Radiology Impression Brain CT 06/21/24 09:26 IMPRESSION: Chronic involutional changes of the brain. Recent bilateral occipital and cerebellar infarct. No hemorrhage. Electronically Signed: Sagar Moseley MD at 10:19 EST , ADDENDUM: 06/21/24 1040 IMPRESSION: Chronic involutional changes of the brain. Recent bilateral occipital and cerebellar infarct. No hemorrhage. N.B. : The above Results were Read Back by Sagar Moseley MD to Christian Prater DO, and understanding confirmed on 06/21/2024 10:33:59 (ET). Electronically Signed: Sagar Moseley MD at 10:19 EST , Physical Exam Narrative Excoriations on abdomen. Patient moves all 4 limbs when prompted. Const no apparent distress Assessment & Plan Assessment/Plan (1) Hematoma: PLAN: Plan Awaiting brain MRI. Hypoxia on 3-4L of oxygen. Hemovac management per Dr. Chu. Dobbhoff tube placement 06/[address] Sanders. EGD showed ulcers. Nephrology consult for toxicity and KELVIN.
[2024-06-21 13:38] VITALS: BP 91/41; PULSE 84
[2024-06-21 16:23] VITALS: BP 106/43; PULSE 84; RESP 16; TEMP 36.2; O2SAT 100
[2024-06-21] MEDS: 0.45% Normal Saline 1,000 ML 100 ML IV (16:25)
--- NOTE | 2024-06-21 16:28 | PCM.PN.SRG ---
Subjective Subjective INTERVAL 24 HOURS Patient was having gastric and duodenal ulcers and was taken emergently by GI for clipping (was having melena and that explain the drop in hemoglobin and need for transfusion). I saw and examined the patient this morning and was concerned about altered mental status as he was no longer following my commands. He had had an increase in BUN and creatinine as well. I called the primary team and we decided on a CT head and full workup for altered mental status. He was diagnosed with developing cerebellar and occipital infarcts. He has been fully anticoagulated. Neurology was consulted. They have no further interventions that can be performed to help this. He cannot get an MRI at this time given the clips that were placed by GI (they are not MRI compatible). Hemoglobin 7.1 this afternoon stable from this morning (7.1) Nephrology has been consulted for ATN. Concern that he may have prerenal disease as he has been fluid down and under resuscitated (however more fluid has been added and free water flushes have been added to the tube feeds for the past 3 days). Current encounter, 21 June 2024: Patient continues to not follow commands this afternoon. He continues to get tube feeds (has been getting them for the past 3 days). Objective Data Objective Data Vital Signs: Vital Signs Temp Pulse Resp BP Pulse Ox O2 Del Method O2 Flow Rate 97.1 F L 84 16 106/43 L 100 Nasal Cannula 3 06/21/24 16:23 06/21/24 16:23 06/21/24 16:23 06/21/24 16:23 06/21/24 16:23 06/21/24 16:23 06/21/24 16:23 FiO2 30 06/20/24 11:50 Oxygen Flow Rate (L/min) 3 Oxygen Delivery Method Nasal Cannula Weight: 233 lb 7.512 oz Body Mass Index (BMI) 36.6 Intake & Output: Intake and Output for Last 24 Hours 06/19/24 06/20/24 06/21/24 23:59 23:59 23:59 Intake Total 520.83 / 520.83 450 / 450 1513.67 / 1513.67 Output Total 1740 / 1740 520 / 520 100 / 100 Balance -1219.17 / -1219.17 -70 / -70 1413.67 / 1413.67 Medical Nutrition Assessment Dietitian: Malnutrition Criteria Met Start: 06/16/24 10:42 Freq: Status: Active Protocol: Document 06/16/24 10:43 SB (Rec: 06/16/24 10:43 SB [id number]) Nutrition Malnutrition Evidence of Malnutrition Exists Yes Malnutrition (severe): Acute Illness/Injury Evidenced By Suboptimal Energy Intake ( Severe),Weight Loss (Severe) Intake Problem Inadequate Oral Intake Etiology related to mental status Signs/Symptoms as evidenced by NPO status. Status Active Problem Clinical Problem Acute Disease or Injury Related Malnutrition Etiology severe related to inadequate oral intake Signs/Symptoms as evidenced by PO meeting <50 % of estimated nutrition needs x 1 week, 7% unintentional weight loss x 2 weeks, and 2+ pitting edema in L arm. Status Active Problem Altered Nutrient-Related Laboratory Values Etiology related to endocrine dysfunction/diabetes Signs/Symptoms as evidenced by A1C 11% and glucose 254 Status Active Problem Recommendation Dietitian Recommendations/Changes Recommend advanced diet as tolerated to liberal regular diet d/t signs and symptoms of malnutrition, per IMAGING SPECIALIST consistency/texture recommendations. Will d/c glucerna shake d/t NPO. Recommend initiating nutrition support in 24-48 hours if pt is still NPO. If nutrition support is initiated recommend Jevity 1. 5Cal goal rate 50ml/hr with 130ml flushes every 4 hours to provide 1800 calories, 76g protein, and 1692ml total fluid/day. Wound start at 10ml /hr d/t risk of refeeding syndrome and increase by 10ml every 8-12 hours as tolerated until goal rate is achieved. Will monitor weight, as available. Reviewed and approved by Jeanna Saels RDN, MANISHA. Lab / Micro Data 06/21/24 11:37 06/21/24 11:37 Labs: Laboratory Results - last 24 hr 06/20/24 18:18: POC Glucose 334 H 06/20/24 21:05: Sodium 152 H, Potassium 4.5, Chloride 123 H, Carbon Dioxide 15.0 L, Anion Gap 13, BUN 70 H, Creatinine 2.56 H, Estim Creat Clear Calc 24.92, Est GFR (MDRD) Af Amer 31 L, Est GFR (MDRD) Non-Af 26 L, BUN/Creatinine Ratio 27.3 H, Glucose 351 H, Calcium 8.0 L, Phosphorus 4.9, Magnesium 2.9 H 06/20/24 21:08: POC Glucose 320 H 06/20/24 23:52: POC Glucose 284 H 06/21/24 05:57: POC Glucose 280 H 06/21/24 06:36: WBC 17.7 H, RBC 2.50 L, Hgb 7.1 L, Hct 23.2 L, MCV 92.8, MCH 28.4, MCHC 30.6 L, RDW Std Deviation 57.8 H, RDW Coeff of Tyesha 17.9 H, Plt Count 331, MPV 10.5, Sodium 151 H, Potassium 4.4, Chloride 124 H, Carbon Dioxide 23.0, Anion Gap 4 L, BUN 74 H, Creatinine 3.03 H, Estim Creat Clear Calc 21.05, Est GFR (MDRD) Af Amer 25 L, Est GFR (MDRD) Non-Af 21 L, BUN/Creatinine Ratio 24.4 H, Glucose 322 H, Calcium 8.0 L, Phosphorus 4.1, Magnesium 3.1 H 06/21/24 09:25: Ur Random Sodium 8, Urine Creatinine 162.00 06/21/24 11:37: WBC 17.2 H, RBC 2.46 L, Hgb 7.1 L, Hct 22.9 L, MCV 93.1, MCH 28.9, MCHC 31.0 L, RDW Std Deviation 56.9 H, RDW Coeff of Tyesha 17.9 H, Plt Count 338, MPV 10.3, Sodium 152 H, Potassium 4.2, Chloride 125 H, Carbon Dioxide 22.0, BUN 77 H, Creatinine 3.13 H, Estim Creat Clear Calc 20.38, Est GFR (MDRD) Af Amer 25 L, Est GFR (MDRD) Non-Af 20 L, BUN/Creatinine Ratio 24.6 H, Glucose 296 H, Calcium 8.1 L, Phosphorus 3.8, Albumin 2.1 L 06/21/24 12:00: POC Glucose 262 H Micro: Microbiology 06/17/24 12:51 Wound - Neck Gram Stain - Final 06/17/24 12:51 Wound - Neck Wound Culture - Final Enterobacter cloacae complex 06/17/24 12:51 Wound - Neck Anaerobic Culture - Final No anaerobic bacteria isolated. 06/12/24 08:30 Blood Culture (Wb) - Anticubital Right Blood Culture - Final No growth in 5 days. 06/11/24 08:30 Urine Catheter - Catheter Urine Culture - Final Klebsiella oxytoca Radiography Diagnostic Testing: Radiology Impression Brain CT 06/21/24 09:26 IMPRESSION: Chronic involutional changes of the brain. Recent bilateral occipital and cerebellar infarct. No hemorrhage. Electronically Signed: Sagar Moseley MD at 10:19 EST , ADDENDUM: 06/21/24 1040 IMPRESSION: Chronic involutional changes of the brain. Recent bilateral occipital and cerebellar infarct. No hemorrhage. N.B. : The above Results were Read Back by Sagar Moseley MD to Christian Prater DO, and understanding confirmed on 06/21/2024 10:33:59 (ET). Electronically Signed: Sagar Moseley MD at 10:19 EST , Physical Exam Narrative NECK Incisional VAC holding suction. Incision c/d/i. Drains strip well and have had appropriate serosanguineous output, no clot. Neck is soft, no signs of hematoma. Const Constitutional Narrative: He is not alert and unable to follow commands today which is an acute change Chest inspection of chest normal Resp normal respiratory effort Resp Narrative: 4 liters via NC, saturations in the mid 90s. Cardio regular rate Extremity Extremity Narrative: SCDs on and activated. Moving all 4 extremities and following commands Gave thumbs up and gripped my hand bilaterally, and he plantarflexed for me . Sensation is intact to light touch in all 4 extremities. Neuro Neuro Narrative: No longer moving extremities on command Assessment & Plan Assessment/Plan (1) Status post cervical spinal fusion: PLAN: No signs of bleeding/hematoma reaccumulation this morning or this afternoon (patient examined twice today). Neuro: agree with neurology consultation for strokes. Cardiopulmonary: Agree with continued anticoagulation for the pulmonary emboli. No bleeding from plastic surgery standpoint. Agree with change to heparin drip in the setting of kidney failure (although still making urine). Nephrology: Agree with nephrology consultation. Heme/ID: Continue to transfuse for hemoglobin less than 7, no signs of infection from a surgical standpoint Abdomen: Appreciate GI.monitor for melena FEN: continue to do tube feeds for nutrition and free water to balance electrolyte Endocrine: Continue tight blood glucose control as able Plastic surgery will continue to consult on this patient. Please let me know if there is any acute change or any issues. I have discussed the patient with the primary team as well as Dr. Hernandez from spine surgery. Family has been updated. Incisional VAC to be changed on Monday, 24 Jun 2024. Continue drain care. Charges/Coding Procedures Integumentary [id number]: [id number] Global Visit
[2024-06-21 17:00] VITALS: BMI 36.6
--- NOTE | 2024-06-21 17:42 | CON.PCM.RE_ITS ---
Assessment & Plan Assessment/Plan (1) Acute kidney injury: PLAN: CKD 3B. baseline cr appears to be 2.0 KELVIN over last 2 days huber indwelling, obstruction unlikely urine sodium low serum sodium high ? prerenal will add fluids for now Hypernatremia. add 0.45 NaCl HPI Consult Data Date of Consult: 06/21/24 HPI Narrative Reason for Consultation: KELVIN HPI Narrative: PHILLIP ANGEL, is a 83 M who presents to hospital for surgery. ongoing events include hypoxic respiratory failure, PE. renal consulted for KELVIN. It appears he has CKD stage 3B. baseline cr around 2.0. currently sleepy. [facility] Medical History Abrasion Insulin dependent diabetes mellitus Thyroid disease Diabetes Non-smoker History of edema Nephrolithiasis Uncontrolled diabetes mellitus Lactose intolerance Debility Bilateral edema of lower extremity Osteoarthritis Stroke/cerebrovascular accident Hypothyroid High cholesterol Diabetes Hypertension Home Medications ?Medication ?Instructions ?Recorded ?Last Taken ?Type aspirin 325 mg tablet 325 mg PO DAILY@0800 HEALTH 08/20/16 05/31/24 History MAINTENANCE atenolol 25 mg tablet 25 mg PO QHS BP 08/20/16 11/19/23 22:55 History atorvastatin 40 mg tablet 40 mg PO QHS CHOLESTEROL 08/20/16 05/30/24 History levothyroxine 75 mcg tablet 75 mcg PO DAILY THYROID 08/20/16 06/04/24 History nitroglycerin 0.4 mg sublingual 0.4 mg sublingual Q5M PRN Chest 08/20/16 Unknown History tablet Pain insulin glargine-yfgn 100 unit/mL 27 unit subcut QHS Diabetes 12/19/22 11/19/23 23:25 History (3 mL) subcutaneous pen insulin lispro 100 unit/mL 9 unit subcut TID Diabetes 12/19/22 11/20/23 History subcutaneous pen (Humalog KwikPen (U-100) Insulin) glucosamine-chondroitin 250 mg-200 2 tab PO TID Supplement 11/16/23 Unknown History mg tablet (Osteo Bi-Flex) losartan 100 mg tablet 100 mg PO DAILY BP 11/16/23 06/04/24 History omega 9-lvi-mvj-fish oil 1,200 mg 1 cap PO BID Supplement 11/16/23 11/20/23 History (144 mg-216 mg) capsule (Fish Oil) acetaminophen 500 mg tablet 1,000 mg (2 x 500 mg) PO Q6H PRN 12/07/23 Unknown Rx PRN Pain Score 1-10 #0 tabs furosemide 40 mg tablet 40 mg PO DAILY Fluid retention 30 12/07/23 Unknown Rx days #30 tabs empagliflozin 25 mg tablet 25 mg PO DAILY Blood sugar 05/28/24 Unknown History (Jardiance) meloxicam 7.5 mg tablet 7.5 mg PO DAILY Osteoarthristis 05/28/24 Unknown History mupirocin 2 % topical ointment 1 applic topical TID Skin condition 05/28/24 Unknown History dexamethasone 4 mg tablet 8 mg (2 x 4 mg) PO TID Steroid #0 05/31/24 05/31/24 Rx tabs insulin lispro 100 unit/mL See Protocol subcut ACHS Blood 05/31/24 Unknown Rx subcutaneous pen (Humalog KwikPen sugar #0 mL (U-100) Insulin) nutrition tx glu 120 ml PO TIDCM supplement #0 mL 05/31/24 Unknown Rx intol,lac-free,soy-fiber 0.06 gram-1.2 kcal/mL liquid (Glucerna 1.2 Jai) hydrochlorothiazide 12.5 mg capsule 12.5 mg PO DAILY bp 06/04/24 Unknown History Allergy/AdvReac Type Severity Reaction Status Date / Time iodine Allergy Swelling Verified 05/28/24 19:28 Penicillins AdvReac Mild PT UNSURE Verified 05/28/24 19:28 OF REACTION Surgical History History of tonsillectomy History of appendectomy History of cholecystectomy Social History household members: none Smoking Status: Never smoker alcohol intake: never substance use type: does not use ROS ROS Narrative negative except above Physical Exam Narrative Alert awake oriented x 3 no obvious distress no pallor no icterus no JVD s1s2 no murmurs lungs clear abdomen soft no organomegaly no edema no cyanosis huber + Medical Records Data Medical Nutrition Assessment Dietitian: Malnutrition Criteria Met Start: 06/16/24 10:42 Freq: Status: Active Protocol: Document 06/16/24 10:43 SB (Rec: 06/16/24 10:43 SB [id number]) Nutrition Malnutrition Evidence of Malnutrition Exists Yes Malnutrition (severe): Acute Illness/Injury Evidenced By Suboptimal Energy Intake ( Severe),Weight Loss (Severe) Intake Problem Inadequate Oral Intake Etiology related to mental status Signs/Symptoms as evidenced by NPO status. Status Active Problem Clinical Problem Acute Disease or Injury Related Malnutrition Etiology severe related to inadequate oral intake Signs/Symptoms as evidenced by PO meeting <50 % of estimated nutrition needs x 1 week, 7% unintentional weight loss x 2 weeks, and 2+ pitting edema in L arm. Status Active Problem Altered Nutrient-Related Laboratory Values Etiology related to endocrine dysfunction/diabetes Signs/Symptoms as evidenced by A1C 11% and glucose 254 Status Active Problem Recommendation Dietitian Recommendations/Changes Recommend advanced diet as tolerated to liberal regular diet d/t signs and symptoms of malnutrition, per BUSINESS PRACTICES OFFICER consistency/texture recommendations. Will d/c glucerna shake d/t NPO. Recommend initiating nutrition support in 24-48 hours if pt is still NPO. If nutrition support is initiated recommend Jevity 1. 5Cal goal rate 50ml/hr with 130ml flushes every 4 hours to provide 1800 calories, 76g protein, and 1692ml total fluid/day. Wound start at 10ml /hr d/t risk of refeeding syndrome and increase by 10ml every 8-12 hours as tolerated until goal rate is achieved. Will monitor weight, as available. Reviewed and approved by Jeanna Seals RDN, LD. Lab / Micro Data 06/21/24 11:37 06/21/24 11:37 Labs: Laboratory Results - last 24 hr 06/20/24 18:18: POC Glucose 334 H 06/20/24 21:05: Sodium 152 H, Potassium 4.5, Chloride 123 H, Carbon Dioxide 15.0 L, Anion Gap 13, BUN 70 H, Creatinine 2.56 H, Estim Creat Clear Calc 24.92, Est GFR (MDRD) Af Amer 31 L, Est GFR (MDRD) Non-Af 26 L, BUN/Creatinine Ratio 27.3 H , Glucose 351 H, Calcium 8.0 L, Phosphorus 4.9, Magnesium 2.9 H 06/20/24 21:08: POC Glucose 320 H 06/20/24 23:52: POC Glucose 284 H 06/21/24 05:57: POC Glucose 280 H 06/21/24 06:36: WBC 17.7 H, RBC 2.50 L, Hgb 7.1 L, Hct 23.2 L, MCV 92.8, MCH 28.4, MCHC 30.6 L, RDW Std Deviation 57.8 H, RDW Coeff of Tyesha 17.9 H, Plt Count 331, MPV 10.5, Sodium 151 H, Potassium 4.4, Chloride 124 H, Carbon Dioxide 23.0, Anion Gap 4 L, BUN 74 H, Creatinine 3.03 H, Estim Creat Clear Calc 21.05, Est GFR (MDRD) Af Amer 25 L, Est GFR (MDRD) Non-Af 21 L, BUN/Creatinine Ratio 24.4 H , Glucose 322 H, Calcium 8.0 L, Phosphorus 4.1, Magnesium 3.1 H 06/21/24 09:25: Ur Random Sodium 8, Urine Creatinine 162.00 06/21/24 11:37: WBC 17.2 H, RBC 2.46 L, Hgb 7.1 L, Hct 22.9 L, MCV 93.1, MCH 28.9, MCHC 31.0 L, RDW Std Deviation 56.9 H, RDW Coeff of Tyesha 17.9 H, Plt Count 338, MPV 10.3, Sodium 152 H, Potassium 4.2, Chloride 125 H, Carbon Dioxide 22.0, BUN 77 H, Creatinine 3.13 H, Estim Creat Clear Calc 20.38, Est GFR (MDRD) Af Amer 25 L, Est GFR (MDRD) Non-Af 20 L, BUN/Creatinine Ratio 24.6 H, Glucose 296 H, Calcium 8.1 L, Phosphorus 3.8, Albumin 2.1 L 06/21/24 12:00: POC Glucose 262 H Micro: Microbiology 06/17/24 12:51 Wound - Neck Gram Stain - Final 06/17/24 12:51 Wound - Neck Wound Culture - Final Enterobacter cloacae complex 06/17/24 12:51 Wound - Neck Anaerobic Culture - Final No anaerobic bacteria isolated. Imaging Radiology Impression Brain CT 06/21/24 09:26 IMPRESSION: Chronic involutional changes of the brain. Recent bilateral occipital and cerebellar infarct. No hemorrhage. Electronically Signed: Sagar Moseley MD at 10:19 EST , ADDENDUM: 06/21/24 1040 IMPRESSION: Chronic involutional changes of the brain. Recent bilateral occipital and cerebellar infarct. No hemorrhage. N.B. : The above Results were Read Back by Sagar Moseley MD to Christian Prater DO, and understanding confirmed on 06/21/2024 10:33:59 (ET). Electronically Signed: Sagar Moseley MD at 10:19 EST ,
[2024-06-21 18:06] LABS: Partial Thromboplast Time 118.7 Seconds (24.1-36.2)
--- NOTE | 2024-06-21 18:40 | PN.GI_ITS ---
Subjective Subjective Patient was noted to have worsening altered mental status today. There were concerns about new central nervous system abnormalities. Unfortunately stat imaging had showed new cerebrovascular events. He was not able to get a CT angiography due to his kidney function. He was not able to get an MRI due to the endoscopic clips that were placed a large actively bleeding duodenal ulcer yesterday. He had new cerebral vascular events despite being on antiplatelet therapy and anticoagulation. His Lovenox was switched to IV heparin. Objective Data Objective Data Vital Signs: Vital Signs Temp Pulse Resp BP Pulse Ox O2 Del Method O2 Flow Rate 97.1 F L 84 16 106/43 L 100 Nasal Cannula 3 06/21/24 16:23 06/21/24 16:23 06/21/24 16:23 06/21/24 16:23 06/21/24 16:23 06/21/24 16:23 06/21/24 16:23 FiO2 30 06/20/24 11:50 Oxygen Flow Rate (L/min) 3 Oxygen Delivery Method Nasal Cannula Weight: 233 lb 7.512 oz Body Mass Index (BMI) 36.6 Intake & Output: Intake and Output for Last 24 Hours 06/19/24 06/20/24 06/21/24 23:59 23:59 23:59 Intake Total 520.83 / 520.83 450 / 450 1620.67 / 1620.67 Output Total 1740 / 1740 520 / 520 100 / 100 Balance -1219.17 / -1219.17 -70 / -70 1520.67 / 1520.67 Medical Nutrition Assessment Dietitian: Malnutrition Criteria Met Start: 06/16/24 10:42 Freq: Status: Active Protocol: Document 06/16/24 10:43 SB (Rec: 06/16/24 10:43 SB [id number]) Nutrition Malnutrition Evidence of Malnutrition Exists Yes Malnutrition (severe): Acute Illness/Injury Evidenced By Suboptimal Energy Intake ( Severe),Weight Loss (Severe) Intake Problem Inadequate Oral Intake Etiology related to mental status Signs/Symptoms as evidenced by NPO status. Status Active Problem Clinical Problem Acute Disease or Injury Related Malnutrition Etiology severe related to inadequate oral intake Signs/Symptoms as evidenced by PO meeting <50 % of estimated nutrition needs x 1 week, 7% unintentional weight loss x 2 weeks, and 2+ pitting edema in L arm. Status Active Problem Altered Nutrient-Related Laboratory Values Etiology related to endocrine dysfunction/diabetes Signs/Symptoms as evidenced by A1C 11% and glucose 254 Status Active Problem Recommendation Dietitian Recommendations/Changes Recommend advanced diet as tolerated to liberal regular diet d/t signs and symptoms of malnutrition, per DIRECTOR OF CURRICULUM AND INSTRUCTION consistency/texture recommendations. Will d/c glucerna shake d/t NPO. Recommend initiating nutrition support in 24-48 hours if pt is still NPO. If nutrition support is initiated recommend Jevity 1. 5Cal goal rate 50ml/hr with 130ml flushes every 4 hours to provide 1800 calories, 76g protein, and 1692ml total fluid/day. Wound start at 10ml /hr d/t risk of refeeding syndrome and increase by 10ml every 8-12 hours as tolerated until goal rate is achieved. Will monitor weight, as available. Reviewed and approved by Jeanna Seals RDN, LD. Lab / Micro Data 06/21/24 11:37 06/21/24 11:37 Labs: Laboratory Results - last 24 hr 06/20/24 18:18: POC Glucose 334 H 06/20/24 21:05: Sodium 152 H, Potassium 4.5, Chloride 123 H, Carbon Dioxide 15.0 L, Anion Gap 13, BUN 70 H, Creatinine 2.56 H, Estim Creat Clear Calc 24.92, Est GFR (MDRD) Af Amer 31 L, Est GFR (MDRD) Non-Af 26 L, BUN/Creatinine Ratio 27.3 H , Glucose 351 H, Calcium 8.0 L, Phosphorus 4.9, Magnesium 2.9 H 06/20/24 21:08: POC Glucose 320 H 06/20/24 23:52: POC Glucose 284 H 06/21/24 05:57: POC Glucose 280 H 06/21/24 06:36: WBC 17.7 H, RBC 2.50 L, Hgb 7.1 L, Hct 23.2 L, MCV 92.8, MCH 28.4, MCHC 30.6 L, RDW Std Deviation 57.8 H, RDW Coeff of Tyesha 17.9 H, Plt Count 331, MPV 10.5, Sodium 151 H, Potassium 4.4, Chloride 124 H, Carbon Dioxide 23.0, Anion Gap 4 L, BUN 74 H, Creatinine 3.03 H, Estim Creat Clear Calc 21.05, Est GFR (MDRD) Af Amer 25 L, Est GFR (MDRD) Non-Af 21 L, BUN/Creatinine Ratio 24.4 H , Glucose 322 H, Calcium 8.0 L, Phosphorus 4.1, Magnesium 3.1 H 06/21/24 09:25: Ur Random Sodium 8, Urine Creatinine 162.00 06/21/24 11:37: WBC 17.2 H, RBC 2.46 L, Hgb 7.1 L, Hct 22.9 L, MCV 93.1, MCH 28.9, MCHC 31.0 L, RDW Std Deviation 56.9 H, RDW Coeff of Tyesha 17.9 H, Plt Count 338, MPV 10.3, Sodium 152 H, Potassium 4.2, Chloride 125 H, Carbon Dioxide 22.0, BUN 77 H, Creatinine 3.13 H, Estim Creat Clear Calc 20.38, Est GFR (MDRD) Af Amer 25 L, Est GFR (MDRD) Non-Af 20 L, BUN/Creatinine Ratio 24.6 H, Glucose 296 H, Calcium 8.1 L, Phosphorus 3.8, Albumin 2.1 L 06/21/24 12:00: POC Glucose 262 H 06/21/24 17:30: APTT 118.7 H* Micro: Microbiology 06/17/24 12:51 Wound - Neck Gram Stain - Final 06/17/24 12:51 Wound - Neck Wound Culture - Final Enterobacter cloacae complex 06/17/24 12:51 Wound - Neck Anaerobic Culture - Final No anaerobic bacteria isolated. 06/12/24 08:30 Blood Culture (Wb) - Anticubital Right Blood Culture - Final No growth in 5 days. 06/11/24 08:30 Urine Catheter - Catheter Urine Culture - Final Klebsiella oxytoca Radiography Diagnostic Testing: Radiology Impression Brain CT 06/21/24 09:26 IMPRESSION: Chronic involutional changes of the brain. Recent bilateral occipital and cerebellar infarct. No hemorrhage. Electronically Signed: Sagar Moseley MD at 10:19 EST , ADDENDUM: 06/21/24 1040 IMPRESSION: Chronic involutional changes of the brain. Recent bilateral occipital and cerebellar infarct. No hemorrhage. N.B. : The above Results were Read Back by Sagar Moseley MD to Christian Prater DO, and understanding confirmed on 06/21/2024 10:33:59 (ET). Electronically Signed: Sagar Moseley MD at 10:19 EST , Physical Exam Narrative Alert awake oriented x 3 no obvious distress no pallor no icterus no JVD s1s2 no murmurs lungs clear abdomen soft no organomegaly no edema no cyanosis huber + Assessment & Plan Assessment/Plan (1) Protein calorie malnutrition: (2) Dysphagia: (3) Stroke/cerebrovascular accident: QUALIFIERS: CVA mechanism: unspecified Qualified Code(s): I63.9 - Cerebral infarction, unspecified (4) GI bleed: (5) Acute hypoxemic respiratory failure: (6) Status post cervical spinal fusion: PLAN: Plan 83-year-old male who presented to [facility] ED on 06/04/2024 from the TCU for planned cervical spine procedure. Unfortunately he has developed bilateral pulmonary emboli with right heart strain, urosepsis, acute kidney injury, GI bleed, dysphagia and protein calorie malnutrition and and acute CVA. 1. Acute GI bleed with multiple ulcers in his stomach and duodenum likely secondary to antiplatelet therapy or anticoagulation in the setting of protein calorie malnutrition allowing for poor wound healing in the upper GI tract accompanied with bile and other proteolytic enzymes. Status post upper endoscopy with treatment of bleeding ulcers in the duodenum. Typically healing is very poor in the duodenum especially in the elderly on anticoagulation and antiplatelet therapy. Cautery or radiofrequency ablation was not performed to the ulcers due to the fact that he is on antiplatelet therapy and he he was high risk for recurrent bleeding due to poor platelet aggregation in the setting of cautery. If the clips need to be removed, they can be removed if the patient needs to have an MRI. Continue to follow H&H and continue PPI therapy. He would benefit from antisecretory therapy such as Misoprostol or Carafate due to the fact that proton pump in addition does not work very well away from the stomach. 2. Status post placement of Dobbhoff tube. He is tolerating feedings and is currently up to goal. . Charges/Coding Visit Charges Inpatient E&M: 05468 Init Hosp L3
[2024-06-21 18:53] LABS: Bedside Glucose 231 mg/dL (74-106)
[2024-06-21 21:50] VITALS: BP 123/44; PULSE 72; RESP 14; TEMP 36.4; O2SAT 99
[2024-06-21] MEDS: Atorvastatin Calcium 40 MG Tablet PO (21:53)
[2024-06-21] MEDS: Senna/Docusate Sodium 1 Tablet 2 TABLET NG (21:53)
[2024-06-21] MEDS: Insulin Glargine-YFGN 100 UNIT/ML Pen 20 UNIT SC (21:54)
[2024-06-22] VITALS (14 sets, daily range): BP systolic 91–125; BP diastolic 42–63; PULSE 71–93; RESP 17–19; TEMP 36.1–36.8; O2SAT 94–100; BMI 36.6; BMI 36.2
[2024-06-22 00:18] LABS: Bedside Glucose 242 mg/dL (74-106)
[2024-06-22 00:18] LABS: Bedside Glucose 213 mg/dL (74-106)
[2024-06-22] MEDS: Acetaminophen 500 MG Tablet 1000 MG NG ×3 (06:12→21:40)
[2024-06-22] MEDS: Levothyroxine 75 MCG Tablet NG (06:12)
[2024-06-22] MEDS: Insulin Lispro 100 UNIT/ML INSULN.PEN 8 UNIT SC ×3 (06:24→17:24)
[2024-06-22] MEDS: Insulin Lispro 100 UNIT/ML INSULN.PEN SC ×4 (06:25→23:36)
[2024-06-22 06:52] LABS: Bedside Glucose 231 mg/dL (74-106)
[2024-06-22 06:56] LABS: Hematocrit 19.3 % (40-54); Mean Corp Hgb Conc 30.1 g/dL (32-36); Mean Corpuscular Hgb 28.4 pg (27.0-32.0); Mean Corpuscular Volume 94.6 fL (80-94); Mean Platelet Vol. 10.7 fl (6.2-12.0); POSITIVE COUNT YES; Platelet Count 296 K/mm3 (150-450); RBC Distribution Width CV 18.5 % (11.6-14.6); RBC Distribution Width SD 60.2 fl (35.1-43.9); Red Blood Count 2.04 M/mm3 (4.6-6.2); White Blood Count 14.6 K/mm3 (4.4-11.0)
[2024-06-22 07:09] LABS: Anion Gap 3 (5-15); BUN 72 mg/dL (7-18); Calcium,Total 7.2 mg/dL (8.5-10.1); Chloride 121 mmol/L (98-107); Creatinine, Serum 2.77 mg/dL (0.70-1.30); EST Glomerular Filtration Rate 23 mL/min (>60); Est Glom Filt Rate - Afr Amer 28 mL/min (>60); Estimated Creatinine Clearance 22.93 ml/min; Glucose 243 mg/dL (74-106); Magnesium 2.6 mg/dL (1.6-2.6); Potassium 3.8 mmol/L (3.5-5.1); Sodium Level 147 mmol/L (136-145)
[2024-06-22 07:11] LABS: Scan Indicated on CBC? Y/N YES- FLAGS NOTED
[2024-06-22 07:12] LABS: Phosphorus 2.9 mg/dL (2.5-4.9)
[2024-06-22 07:14] LABS: Hemoglobin 5.8 g/dL (13.0-16.5)
[2024-06-22] MEDS: Pantoprazole Sodium 40 MG in 0.9% Normal Saline (100mL MB+) 100 ML 330 MG IV ×2 (08:21→21:44)
[2024-06-22] MEDS: 0.9% Saline Lock 10 ML Syringe IV ×5 (08:22→21:45)
[2024-06-22] MEDS: Midodrine HCl 5 MG Tablet 10 MG NG ×3 (08:22→17:22)
[2024-06-22] MEDS: 0.9% Normal Saline (100mL Bag) 100 ML 15 ML IV (08:24)
[2024-06-22] MEDS: HEPARIN/D5w 25,000 UNITS 25,000 UNITS/250 ML IV.SOLN. 12 UNITS CONT INF (08:26)
--- NOTE | 2024-06-22 08:28 | PCM.PN.SRG ---
Subjective Subjective Interval 24 hours: Decrease in Cr and making urine. BUN/Cr ratio 26 (BUN IN 70s which may be contributing to the AMS). Nephrology has been consulted. Patient now on Heparin ggt and was supratherapeutic last night, but no with 70-90 range. Nursing reports good drain care, no signs of hematoma. Drain output collectively 185 over past 24 hours. A deep soft tissue culture grew Enterobactor in the broth, so primary team starting cefepime and consulting ID. I discussed these results with spine surgery. This morning the patient is more alert. Able to say that he's at [facility] and reported that it was June. He follows my commands this morning (opens eyes and squeezes hands into fist and makes thumbs up). Improved since yesterday morning. His son is spending the day with him today (Demetris) since a weekend day. Objective Data Objective Data Vital Signs: Vital Signs Temp Pulse Resp BP Pulse Ox O2 Del Method O2 Flow Rate 97.0 F L 81 18 91/47 L 95 Nasal Cannula 2 06/22/24 08:16 06/22/24 08:16 06/22/24 08:16 06/22/24 08:16 06/22/24 08:16 06/22/24 08:16 06/22/24 08:16 FiO2 30 06/20/24 11:50 Oxygen Flow Rate (L/min) 2 Oxygen Delivery Method Nasal Cannula Weight: 231 lb 7.766 oz Body Mass Index (BMI) 36.2 Intake & Output: Intake and Output for Last 24 Hours 06/20/24 06/21/24 06/22/24 23:59 23:59 23:59 Intake Total 450 / 450 9.17 / 2089.17 1336.67 / 1336.67 Output Total 520 / 520 100 / 645 1235 / 1235 Balance -70 / -70 1989.17 / 1444.17 101.67 / 101.67 Medical Nutrition Assessment Dietitian: Malnutrition Criteria Met Start: 06/16/24 10:42 Freq: Status: Active Protocol: Document 06/16/24 10:43 SB (Rec: 06/16/24 10:43 SB [id number]) Nutrition Malnutrition Evidence of Malnutrition Exists Yes Malnutrition (severe): Acute Illness/Injury Evidenced By Suboptimal Energy Intake ( Severe),Weight Loss (Severe) Intake Problem Inadequate Oral Intake Etiology related to mental status Signs/Symptoms as evidenced by NPO status. Status Active Problem Clinical Problem Acute Disease or Injury Related Malnutrition Etiology severe related to inadequate oral intake Signs/Symptoms as evidenced by PO meeting <50 % of estimated nutrition needs x 1 week, 7% unintentional weight loss x 2 weeks, and 2+ pitting edema in L arm. Status Active Problem Altered Nutrient-Related Laboratory Values Etiology related to endocrine dysfunction/diabetes Signs/Symptoms as evidenced by A1C 11% and glucose 254 Status Active Problem Recommendation Dietitian Recommendations/Changes Recommend advanced diet as tolerated to liberal regular diet d/t signs and symptoms of malnutrition, per GLASSWORKER consistency/texture recommendations. Will d/c glucerna shake d/t NPO. Recommend initiating nutrition support in 24-48 hours if pt is still NPO. If nutrition support is initiated recommend Jevity 1. 5Cal goal rate 50ml/hr with 130ml flushes every 4 hours to provide 1800 calories, 76g protein, and 1692ml total fluid/day. Wound start at 10ml /hr d/t risk of refeeding syndrome and increase by 10ml every 8-12 hours as tolerated until goal rate is achieved. Will monitor weight, as available. Reviewed and approved by Jeanna Seals RDN, MANISHA. Lab / Micro Data 06/22/24 06:26 06/22/24 06:26 Labs: Laboratory Results - last 24 hr 06/21/24 09:25: Ur Random Sodium 8, Urine Creatinine 162.00 06/21/24 11:37: WBC 17.2 H, RBC 2.46 L, Hgb 7.1 L, Hct 22.9 L, MCV 93.1, MCH 28.9, MCHC 31.0 L, RDW Std Deviation 56.9 H, RDW Coeff of Tyesha 17.9 H, Plt Count 338, MPV 10.3, Sodium 152 H, Potassium 4.2, Chloride 125 H, Carbon Dioxide 22.0, BUN 77 H, Creatinine 3.13 H, Estim Creat Clear Calc 20.38, Est GFR (MDRD) Af Amer 25 L, Est GFR (MDRD) Non-Af 20 L, BUN/Creatinine Ratio 24.6 H, Glucose 296 H, Calcium 8.1 L, Phosphorus 3.8, Albumin 2.1 L, Crossmatch See Detail 06/21/24 12:00: POC Glucose 262 H 06/21/24 17:30: APTT 118.7 H* 06/21/24 18:20: POC Glucose 231 H 06/21/24 21:48: POC Glucose 213 H 06/21/24 23:53: POC Glucose 242 H 06/22/24 03:25: APTT 78.0 H 06/22/24 06:21: POC Glucose 231 H 06/22/24 06:26: WBC 14.6 H, RBC 2.04 L, Hct 19.3 L, MCV 94.6 H, MCH 28.4, MCHC 30.1 L, RDW Std Deviation 60.2 H, RDW Coeff of Tyesha 18.5 H, Plt Count 296, MPV 10.7, Sodium 147 H, Potassium 3.8, Chloride 121 H, Carbon Dioxide 23.0, Anion Gap 3 L, BUN 72 H, Creatinine 2.77 H, Estim Creat Clear Calc 22.93, Est GFR (MDRD) Af Amer 28 L, Est GFR (MDRD) Non-Af 23 L, BUN/Creatinine Ratio 26.0 H, Glucose 243 H, Calcium 7.2 L, Phosphorus 2.9, Magnesium 2.6 Micro: Microbiology 06/17/24 12:51 Wound - Neck Gram Stain - Final 06/17/24 12:51 Wound - Neck Wound Culture - Final Enterobacter cloacae complex 06/17/24 12:51 Wound - Neck Anaerobic Culture - Final No anaerobic bacteria isolated. 06/12/24 08:30 Blood Culture (Wb) - Anticubital Right Blood Culture - Final No growth in 5 days. 06/11/24 08:30 Urine Catheter - Catheter Urine Culture - Final Klebsiella oxytoca Radiography Diagnostic Testing: Radiology Impression Brain CT 06/21/24 09:26 IMPRESSION: Chronic involutional changes of the brain. Recent bilateral occipital and cerebellar infarct. No hemorrhage. Electronically Signed: Sagar Moseley MD at 10:19 EST , ADDENDUM: 06/21/24 1040 IMPRESSION: Chronic involutional changes of the brain. Recent bilateral occipital and cerebellar infarct. No hemorrhage. N.B. : The above Results were Read Back by Sagar Moseley MD to Christian Prater DO, and understanding confirmed on 06/21/2024 10:33:59 (ET). Electronically Signed: Sagar Moseley MD at 10:19 EST , Physical Exam Narrative NECK Incisional VAC holding suction. Incision c/d/i. Drains strip well and have had appropriate serosanguineous output, no clot. Neck is soft, no signs of hematoma. Const Constitutional Narrative: Following commands today and opening eyes Chest inspection of chest normal Resp normal respiratory effort Resp Narrative: 2 liters via NC, saturations in the mid 90s. Cardio regular rate Extremity Extremity Narrative: SCDs on and activated. Assessment & Plan Assessment/Plan (1) Status post cervical spinal fusion: PLAN: No signs of bleeding/hematoma reaccumulation this morning. Neuro: agree with neurology consultation for strokes. Cardiopulmonary: Agree with continued anticoagulation for the pulmonary emboli. No bleeding from plastic surgery standpoint. Agree with change to heparin drip in the setting of KELVIN. Nephrology: Agree with nephrology consultation. Making urine and Cr downtrending Heme/ID: Continue to transfuse for hemoglobin less than 7, no signs of infection from a surgical standpoint. Hgb reportedly (per nursing critical result) 5.8 this morning (although says pending in chart) so getting 2 units. Infectious disease consultation for the Enterobacter growth, agree with cefepime. Abdomen: Appreciate GI. Monitor for melena as this has likely been source of anemia over last few days (bleeding duodenal ulcer coild) FEN: continue to do tube feeds for nutrition and free water to balance electrolyte Endocrine: Continue tight blood glucose control as able (sugars recently in the 200s) Plastic surgery will continue to consult. Please let me know if there is any acute change or any issues. I have discussed the patient with the primary team as well as Dr. Hernandez from spine surgery. Incisional VAC to be changed on Monday, 24 Jun 2024. Continue drain care. Charges/Coding Procedures Integumentary [id number]: [id number] Global Visit
--- NOTE | 2024-06-22 09:00 | CT_ITS ---
STUDY: CT BRAIN WITHOUT CONTRAST REASON FOR EXAM: Male, 83 years old. Repeat at 24h for acute CVA RADIATION DOSAGE (If Supplied By Facility): CTDIvol = ( 44.99 ) mGy, DLP = ( 863.60 ) mGycm TECHNIQUE: Transaxial CT imaging of the brain was performed without administration of intravenous contrast material. Individualized dose optimization techniques were used for this CT. COMPARISON: Including June 2024 and June 05, 2024 FINDINGS: Normal soft tissue structures. Normal calvarium. There is moderate cerebral atrophy with widening of the extra-axial spaces and ventricular dilatation. There are areas of decreased attenuation within the white matter tracts of the supratentorial brain, consistent with microvascular disease changes. There are stable diminished density regions of the bilateral occipital lobes and cerebellar hemispheres consistent with recent infarct. There is mild increased density at the periphery of the right occipital lobe with probable cortical laminar necrosis consistent with subacute status. Normal basal ganglia and thalami. Normal brainstem. . There is no intracranial hemorrhage. There are no findings of an acute ischemic infarction. There is nasogastric tube. There is moderate mucosal thickening of the paranasal sinuses. There is moderate right mastoid opacification and severe left mastoid opacification. CT/Brain/Head without Contrast IMPRESSION: Chronic involutional changes of the brain. 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 No hemorrhage. . Electronically Signed: Sagar Moseley MD at 11:12 EST ,
[2024-06-22] MEDS: Cefepime HCl 1 GM in 0.9% Normal Saline (50mL MB+) 50 ML IV (09:48)
[2024-06-22] MEDS: Jevity 1.5 1,000 ML 50 ML GT (09:51)
[2024-06-22 10:43] LABS: Partial Thromboplast Time 119.7 Seconds (24.1-36.2)
--- NOTE | 2024-06-22 11:10 | PCM.PN.HOSP ---
Reason for Visit Reason for Visit: Diagnoses Hypothyroidism, unspecified (06/04/24) Type 2 diabetes mellitus with hyperglycemia (06/04/24) Unspecified protein-calorie malnutrition (06/04/24) Obesity, unspecified (06/04/24) Hyperlipidemia, unspecified (06/04/24) Other specified diseases of spinal cord (06/04/24) Disease of spinal cord, unspecified (06/04/24) Essential (primary) hypertension (06/04/24) Cerebral infarction, unspecified (06/04/24) Acute respiratory failure with hypoxia (06/04/24) Gastrointestinal hemorrhage, unspecified (06/04/24) Unspecified osteoarthritis, unspecified site (06/04/24) Acute kidney failure, unspecified (06/04/24) Dysphagia, unspecified (06/04/24) Other injury of unspecified body region, initial encounter (06/04/24) Arthrodesis status (06/04/24) Subjective Subjective Saw patient at bedside later this morning, son and [id number] present. Patient's mentation appeared improved compared to yesterday. He was sitting up in bed and making appropriate eye contact, and he was answering most questions with short appropriate responses. He denied any acute pain or discomfort. On discussion with family, noted that tube feeds are up to goal for the patient and we will continue these through the weekend. Suspect that the additional nutrition may be contributing to patient's increased energy level. Noted that repeat CT head at the 24-hour la nena showed stable findings from yesterday with no new findings. Noted that his hemoglobin was low at 5.8 this morning suspected mainly due to dilution and we will recheck after he received 2 units of blood today. Importantly, noted to family that while the patient does appear improved today, he remains very weak and he most certainly will need rehab placement on discharge. Given his age and long length of this hospitalization with multiple complications, we do have concern about his ability to recover strength and suspect he may eventually need long-term placement after rehab. Family was appreciative of this conversation. Will continue current management at this time. Objective Data Objective Data Vital Signs: Vital Signs Temp Pulse Resp BP Pulse Ox O2 Del Method O2 Flow Rate 97.0 F L 81 18 91/47 L 96 Nasal Cannula 3 06/22/24 08:16 06/22/24 08:16 06/22/24 08:16 06/22/24 08:16 06/22/24 08:30 06/22/24 08:30 06/22/24 08:30 FiO2 30 06/20/24 11:50 Oxygen Flow Rate (L/min) 3 Oxygen Delivery Method Nasal Cannula Weight: 105 kg Body Mass Index (BMI) 36.2 Intake & Output: Intake and Output for Last 24 Hours 06/20/24 06/21/24 06/22/24 23:59 23:59 23:59 Intake Total 450 / 450 2089.17 / 2089.17 1724.93 / 1724.93 Output Total 520 / 520 220 / 765 1235 / 1235 Balance -70 / -70 1869.17 / 1324.17 489.93 / 489.93 Medical Nutrition Assessment Dietitian: Malnutrition Criteria Met Start: 06/16/24 10:42 Freq: Status: Active Protocol: Document 06/16/24 10:43 SB (Rec: 06/16/24 10:43 SB [id number]) Nutrition Malnutrition Evidence of Malnutrition Exists Yes Malnutrition (severe): Acute Illness/Injury Evidenced By Suboptimal Energy Intake ( Severe),Weight Loss (Severe) Intake Problem Inadequate Oral Intake Etiology related to mental status Signs/Symptoms as evidenced by NPO status. Status Active Problem Clinical Problem Acute Disease or Injury Related Malnutrition Etiology severe related to inadequate oral intake Signs/Symptoms as evidenced by PO meeting <50 % of estimated nutrition needs x 1 week, 7% unintentional weight loss x 2 weeks, and 2+ pitting edema in L arm. Status Active Problem Altered Nutrient-Related Laboratory Values Etiology related to endocrine dysfunction/diabetes Signs/Symptoms as evidenced by A1C 11% and glucose 254 Status Active Problem Recommendation Dietitian Recommendations/Changes Recommend advanced diet as tolerated to liberal regular diet d/t signs and symptoms of malnutrition, per [employer] FEEDER consistency/texture recommendations. Will d/c glucerna shake d/t NPO. Recommend initiating nutrition support in 24-48 hours if pt is still NPO. If nutrition support is initiated recommend Jevity 1. 5Cal goal rate 50ml/hr with 130ml flushes every 4 hours to provide 1800 calories, 76g protein, and 1692ml total fluid/day. Wound start at 10ml /hr d/t risk of refeeding syndrome and increase by 10ml every 8-12 hours as tolerated until goal rate is achieved. Will monitor weight, as available. Reviewed and approved by Jeanna Seals RDN, LD. Lab / Micro Data 06/22/24 06:26 06/22/24 06:26 Labs: Laboratory Results - last 24 hr 06/21/24 11:37: WBC 17.2 H, RBC 2.46 L, Hgb 7.1 L, Hct 22.9 L, MCV 93.1, MCH 28.9, MCHC 31.0 L, RDW Std Deviation 56.9 H, RDW Coeff of Tyesha 17.9 H, Plt Count 338, MPV 10.3, Sodium 152 H, Potassium 4.2, Chloride 125 H, Carbon Dioxide 22.0, BUN 77 H, Creatinine 3.13 H, Estim Creat Clear Calc 20.38, Est GFR (MDRD) Af Amer 25 L, Est GFR (MDRD) Non-Af 20 L, BUN/Creatinine Ratio 24.6 H, Glucose 296 H, Calcium 8.1 L, Phosphorus 3.8, Albumin 2.1 L, Blood Type O POSITIVE, Antibody Screen NEGATIVE, Crossmatch See Detail 06/21/24 12:00: POC Glucose 262 H 06/21/24 17:30: APTT 118.7 H* 06/21/24 18:20: POC Glucose 231 H 06/21/24 21:48: POC Glucose 213 H 06/21/24 23:53: POC Glucose 242 H 06/22/24 03:25: APTT 78.0 H 06/22/24 06:21: POC Glucose 231 H 06/22/24 06:26: WBC 14.6 H, RBC 2.04 L, Hgb 5.8 L*, Hct 19.3 L, MCV 94.6 H, MCH 28.4, MCHC 30.1 L, RDW Std Deviation 60.2 H, RDW Coeff of Tyesha 18.5 H, Plt Count 296, MPV 10.7, Differential Comment , Diff Path Review October, Sodium 147 H, Potassium 3.8, Chloride 121 H, Carbon Dioxide 23.0, Anion Gap 3 L, BUN 72 H, Creatinine 2.77 H, Estim Creat Clear Calc 22.93, Est GFR (MDRD) Af Amer 28 L, Est GFR (MDRD) Non-Af 23 L, BUN/Creatinine Ratio 26.0 H, Glucose 243 H, Calcium 7.2 L, Phosphorus 2.9, Magnesium 2.6 06/22/24 10:15: APTT 119.7 H* Micro: Microbiology 06/17/24 12:51 Wound - Neck Gram Stain - Final 06/17/24 12:51 Wound - Neck Wound Culture - Final Enterobacter cloacae complex 06/17/24 12:51 Wound - Neck Anaerobic Culture - Final No anaerobic bacteria isolated. 06/12/24 08:30 Blood Culture (Wb) - Anticubital Right Blood Culture - Final No growth in 5 days. 06/11/24 08:30 Urine Catheter - Catheter Urine Culture - Final Klebsiella oxytoca Physical Exam Const Constitutional Narrative: Elderly male, mildly fatigued appearing but mentation much improved from yesterday, sitting up in bed with neck brace in place, eyes open and responding to most questions with short appropriate responses. HEENT normocephalic, head/scalp atraumatic, hearing grossly normal bilaterally and nasal mucous membranes and turbinates normal Eyes PERRL, EOMs intact bilaterally and conjunctivae normal Neck Neck Narrative: Neck brace in place. Wound VAC in place with multiple drains noted with bloody to serosanguineous output. Stable. Lymph Lymphatic: no lymphadenopathy noted Chest inspection of chest normal Resp normal respiratory effort, no use of accessory muscles and clear to auscultation bilaterally Cardio regular rate, regular rhythm, no murmurs and peripheral pulses 2+ throughout GI normal to inspection, nondistended, normoactive bowel sounds, soft to palpation, non-tender and non-distended Extremity no pedal edema Extremity Narrative: Right hand with +1-2 pitting edema, improving. Notably good radial pulse and patient has been on anticoagulation throughout this hospitalization. No lower extremity edema and minimal left hand edema. Neuro Neuro Narrative: Mental status much improved on 06/22, awake and alert, answering questions with short appropriate responses. Difficulty with movement of arms and legs but no overt focal motor deficits noted. Sensorium / Orientation: awake and alert Assessment & Plan Assessment/Plan (1) Acute hypoxemic respiratory failure: (2) Status post cervical spinal fusion: PLAN: Plan Patient is an 83-year-old male who presented to [facility] ED on 06/04/2024 from the TCU for planned cervical spine procedure. Hospital course complicated by bilateral pulmonary emboli with right heart strain, sepsis secondary to Klebsiella UTI, KELVIN, metabolic encephalopathy and acute CVA. 1. Acute hypoxic respiratory failure secondary to bilateral pulmonary emboli with right heart strain, improving ? Learning Technologist followed. Had postoperative acute respiratory failure on 06/05 requiring transfer to the ICU. CTA chest showed bilateral PE with right heart strain. Echo 06/06 showed EF 60%, severely dilated RV, moderately decreased RV systolic function. Treated with therapeutic Lovenox for the majority of this admission but changed to heparin drip on 06/21 given worsening renal function. Eventual plan is to transition to Eliquis once wound VAC changes are complete but this is on hold for now given clinical worsening as noted below. Stable on 4 L nasal cannula at rest currently. Monitor. 2. 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 Orthopedic surgery and plastic surgery following. Patient with initial C3-T1 fusion surgery with skin flap coverage on 06/04. Unfortunately had increasing serosanguineous to bloody output from the wound VAC in recent days along with worsening swelling near the incision site. CT C-spine on 06/17 showed a new 7 cm fluid collection in the posterior paraspinous musculature consistent with a postop hematoma. S/p incision and drainage with possible closure of the hematoma on 06/17, with replacement of drain and wound VAC. Cervical collar back in place. Will continue to follow closely and appreciate orthopedic and plastic surgery assistance. 3. Acute CVA ? Patient with mental status change on morning of 06/21. Notably not able to participate in NIH scoring due to generalized weakness. CT brain without contrast showed new diminished density regions of the bilateral occipital lobes and cerebellar hemispheres consistent with recent infarct. Discussed with [facility] neurology and patient unfortunately unable to have CTA head/neck done due to worsening kidney function and contrast allergy, and also not able to have MRI done due to recent clips placed for gastric ulcers and concern that these are not MRI compatible. Repeat CT head without contrast on 06/22 with stable changes and no new findings. Patient with mental status improvement on 06/22 and no overt focal neurologic changes noted. Will continue heparin drip and high intensity statin. 4. Acute metabolic encephalopathy with dysphagia, improving ? Speech therapy and nutrition following. Unclear etiology but suspected this was in part due to sedating medications along with overall generalized weakness. Was determined patient cannot take in p.o. safely and Dobbhoff tube was placed by GI on 06/20. Tube feeds initiated on 06/20, advanced to goal rate by 06/22. Refeeding labs with no significant abnormalities. Mentation much improved on 06/22, alert and answering questions with short appropriate responses. Will discuss with speech therapy on timing of next trial of feeding for the patient. 5. Anemia ? Multifactorial secondary to blood loss and drainage from wound VAC, blood loss from GI bleed and lab draws. Hemoglobin 6.8 on 06/19, s/p 1 unit of blood with repeat hemoglobin 7.7 on 06/20. Hemoglobin again dropped to 5.8 on 06/22, s/p 2 units of blood with repeat hemoglobin pending. Continue to monitor CBC daily and transfuse for hemoglobin less than 7. 6. Upper GI bleed ? S/p EGD with Dr. Sanders on 06/20 for Dobbhoff tube placement, was found to have several duodenal ulcers with some active bleeding noted. 2 clips were placed with cessation of bleeding. Suspect ulcers were largely secondary to acute stress state, lack of recent p.o. intake and exacerbated by therapeutic anticoagulation. Will continue treatment with IV PPI twice daily. 7. Hypernatremia, improving ? Presumed secondary to poor p.o. intake. Sodium peaked at 152, now improving with additional free water with tube feeds and supplemental IV fluids as needed. Most recent sodium 147 on 06/22. Continue to monitor daily sodium level. 8. KELVIN ? Nephrology following. Baseline creatinine appears to be around 1.2. Creatinine worsened post procedure likely due to hypotension in setting of bilateral PE and UTI. Peak of 2.49 on 06/11. Creatinine has stabilized around 1.7-1.9 but then had significant worsening on 06/21 to creatinine 3.13. Suspected due to dehydration from n.p.o. status and discontinuation of maintenance IV fluids prior to Dobbhoff tube placement. Given significant fluid resuscitation on 06/21, creatinine improved to 2.6 on 06/22. Has maintained adequate urine output throughout. Continue to monitor daily BMP and urine output.r 9. Sepsis secondary to Klebsiella UTI, resolved ? Urine culture 06/11 grew greater than 100,000 Klebsiella. Blood cultures with no growth. Blood pressure improved with IV fluid resuscitation. Completed IV ceftriaxone for 7-day course total on 06/17. 10. Urinary retention ? Had Jeffrey catheter placed early in hospitalization due to retention. Continue Jeffrey at this time. Chronic medical conditions: ? Class II obesity: BMI 35 on admit. Complicates hospital course, care and prognosis. ? Type 2 diabetes mellitus: Patient now with worsening blood sugars after starting tube feeds. Treating with Lantus 20 units at night and 8 units every 6 hours with sliding scale insulin, adjust as needed. ? Hypertension: Holding home atenolol, losartan and Jardiance. ? Hyperlipidemia: Continue home statin. ? Hypothyroidism: Continue Synthroid. DVT prophylaxis: Not indicated, on heparin drip CODE STATUS: DNR CCA, DNI Expected disposition: TBD Total clinical time spent by myself addressing the patient's medical issues, reviewing all the data, and collaborating with patient's care team: 50 minutes. Charges/Coding Visit Charges Inpatient E&M: [id number] [facility] L3
[2024-06-22] MEDS: Menthol/Lanolin/Calamine/Znox 113 GM Tube 1 APPLIC TOPICAL ×2 (12:21→21:39)
[2024-06-22] MEDS: Senna/Docusate Sodium 1 Tablet 2 TABLET NG ×2 (12:22→21:39)
[2024-06-22 17:30] LABS: Bedside Glucose 201 mg/dL (74-106)
[2024-06-22 17:55] LABS: Bedside Glucose 219 mg/dL (74-106)
--- NOTE | 2024-06-22 19:11 | PN.RENAL_ITS ---
Subjective Subjective no new events Objective Data Objective Data Vital Signs: Vital Signs Temp Pulse Resp BP Pulse Ox O2 Del Method O2 Flow Rate 97.1 F L 71 17 108/51 L 100 Nasal Cannula 2 06/22/24 18:36 06/22/24 18:36 06/22/24 17:36 06/22/24 18:36 06/22/24 18:36 06/22/24 18:36 06/22/24 18:36 FiO2 30 06/20/24 11:50 Oxygen Flow Rate (L/min) 2 Oxygen Delivery Method Nasal Cannula Weight: 105 kg Body Mass Index (BMI) 36.2 Intake & Output: Intake and Output for Last 24 Hours 06/20/24 06/21/24 06/22/24 23:59 23:59 23:59 Intake Total 450 / 450 2089.17 / 2089.17 2253.93 / 2253.93 Output Total 520 / 520 220 / 765 2145 / 2145 Balance -70 / -70 1869.17 / 1324.17 108.93 / 108.93 Medical Nutrition Assessment Dietitian: Malnutrition Criteria Met Start: 06/16/24 10:42 Freq: Status: Active Protocol: Document 06/16/24 10:43 SB (Rec: 06/16/24 10:43 SB [id number]) Nutrition Malnutrition Evidence of Malnutrition Exists Yes Malnutrition (severe): Acute Illness/Injury Evidenced By Suboptimal Energy Intake ( Severe),Weight Loss (Severe) Intake Problem Inadequate Oral Intake Etiology related to mental status Signs/Symptoms as evidenced by NPO status. Status Active Problem Clinical Problem Acute Disease or Injury Related Malnutrition Etiology severe related to inadequate oral intake Signs/Symptoms as evidenced by PO meeting <50 % of estimated nutrition needs x 1 week, 7% unintentional weight loss x 2 weeks, and 2+ pitting edema in L arm. Status Active Problem Altered Nutrient-Related Laboratory Values Etiology related to endocrine dysfunction/diabetes Signs/Symptoms as evidenced by A1C 11% and glucose 254 Status Active Problem Recommendation Dietitian Recommendations/Changes Recommend advanced diet as tolerated to liberal regular diet d/t signs and symptoms of malnutrition, per FUNCTIONAL MANAGER consistency/texture recommendations. Will d/c glucerna shake d/t NPO. Recommend initiating nutrition support in 24-48 hours if pt is still NPO. If nutrition support is initiated recommend Jevity 1. 5Cal goal rate 50ml/hr with 130ml flushes every 4 hours to provide 1800 calories, 76g protein, and 1692ml total fluid/day. Wound start at 10ml /hr d/t risk of refeeding syndrome and increase by 10ml every 8-12 hours as tolerated until goal rate is achieved. Will monitor weight, as available. Reviewed and approved by Jeanna Seals, EMPERATRIZ, LD. Lab / Micro Data 06/22/24 06:26 06/22/24 06:26 Labs: Laboratory Results - last 24 hr 06/18/24 07:37: Crossmatch See Detail 06/21/24 11:37: Blood Type O POSITIVE, Antibody Screen NEGATIVE, Crossmatch See Detail 06/21/24 21:48: POC Glucose 213 H 06/21/24 23:53: POC Glucose 242 H 06/22/24 03:25: APTT 78.0 H 06/22/24 06:21: POC Glucose 231 H 06/22/24 06:26: WBC 14.6 H, RBC 2.04 L, Hgb 5.8 L*, Hct 19.3 L, MCV 94.6 H, MCH 28.4, MCHC 30.1 L, RDW Std Deviation 60.2 H, RDW Coeff of Tyesha 18.5 H, Plt Count 296, MPV 10.7, Differential Comment , Diff Path Review October, Sodium 147 H, Potassium 3.8, Chloride 121 H, Carbon Dioxide 23.0, Anion Gap 3 L, BUN 72 H, C reatinine 2.77 H, Estim Creat Clear Calc 22.93, Est GFR (MDRD) Af Amer 28 L, Est GFR (MDRD) Non-Af 23 L, BUN/Creatinine Ratio 26.0 H, Glucose 243 H, Calcium 7.2 L, Phosphorus 2.9, Magnesium 2.6 06/22/24 10:15: APTT 119.7 H* 06/22/24 12:23: POC Glucose 201 H 06/22/24 17:23: POC Glucose 219 H Micro: Microbiology 06/17/24 12:51 Wound - Neck Gram Stain - Final 06/17/24 12:51 Wound - Neck Wound Culture - Final Enterobacter cloacae complex 06/17/24 12:51 Wound - Neck Anaerobic Culture - Final No anaerobic bacteria isolated. 06/12/24 08:30 Blood Culture (Wb) - Anticubital Right Blood Culture - Final No growth in 5 days. 06/11/24 08:30 Urine Catheter - Catheter Urine Culture - Final Klebsiella oxytoca Radiography Diagnostic Testing: Radiology Impression Brain CT 06/22/24 09:00 IMPRESSION: Chronic involutional changes of the brain. 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 No hemorrhage. . Electronically Signed: Sagar Moseley MD at 11:12 EST , Physical Exam Narrative Alert awake oriented x 3 no obvious distress no pallor no icterus no JVD s1s2 no murmurs lungs clear abdomen soft no organomegaly no edema no cyanosis Assessment & Plan Assessment/Plan (1) Acute kidney injury: PLAN: CKD 3B. baseline cr appears to be 2.0 KELVIN over last 3 days huber indwelling, obstruction unlikely urine sodium low serum sodium high ? prerenal better Hypernatremia. better
[2024-06-22 20:49] LABS: Hematocrit 27.6 % (40-54); Hemoglobin 8.8 g/dL (13.0-16.5); Mean Corp Hgb Conc 31.9 g/dL (32-36); Mean Corpuscular Hgb 29.3 pg (27.0-32.0); Mean Platelet Vol. 10.3 fl (6.2-12.0); Platelet Count 263 K/mm3 (150-450); RBC Distribution Width CV 17.2 % (11.6-14.6); RBC Distribution Width SD 53.8 fl (35.1-43.9); White Blood Count 15.3 K/mm3 (4.4-11.0)
[2024-06-22 21:02] LABS: Partial Thromboplast Time 60.6 Seconds (24.1-36.2)
[2024-06-22] MEDS: Insulin Glargine-YFGN 100 UNIT/ML Pen 20 UNIT SC (21:38)
[2024-06-22] MEDS: Atorvastatin Calcium 40 MG Tablet PO (21:38)
[2024-06-22 22:28] LABS: Bedside Glucose 137 mg/dL (74-106)
[2024-06-22 23:39] LABS: Bedside Glucose 163 mg/dL (74-106)
[2024-06-23] VITALS (8 sets, daily range): BP systolic 105–125; BP diastolic 50–76; PULSE 78–87; RESP 17–18; TEMP 36.5–36.7; O2SAT 94–98; BMI 35.2
[2024-06-23 03:23] LABS: Hematocrit 26.2 % (40-54); Hemoglobin 8.6 g/dL (13.0-16.5); Mean Corp Hgb Conc 32.8 g/dL (32-36); Mean Corpuscular Hgb 29.8 pg (27.0-32.0); Mean Corpuscular Volume 90.7 fL (80-94); Mean Platelet Vol. 10.1 fl (6.2-12.0); Platelet Count 261 K/mm3 (150-450); RBC Distribution Width CV 17.9 % (11.6-14.6); RBC Distribution Width SD 54.3 fl (35.1-43.9); Red Blood Count 2.89 M/mm3 (4.6-6.2); White Blood Count 14.4 K/mm3 (4.4-11.0)
[2024-06-23 03:33] LABS: Partial Thromboplast Time 60.6 Seconds (24.1-36.2)
[2024-06-23 03:37] LABS: Anion Gap 2 (5-15); BUN 59 mg/dL (7-18); BUN/Creat Ratio 28.1 RATIO (10-20); Calcium,Total 7.6 mg/dL (8.5-10.1); Chloride 122 mmol/L (98-107); EST Glomerular Filtration Rate 32 mL/min (>60); Est Glom Filt Rate - Afr Amer 39 mL/min (>60); Estimated Creatinine Clearance 30.24 ml/min; Glucose 214 mg/dL (74-106); Magnesium 2.6 mg/dL (1.6-2.6); Phosphorus 2.4 mg/dL (2.5-4.9); Potassium 4.2 mmol/L (3.5-5.1); Sodium Level 149 mmol/L (136-145)
[2024-06-23] MEDS: Acetaminophen 500 MG Tablet 1000 MG NG ×3 (05:13→22:47)
[2024-06-23] MEDS: Levothyroxine 75 MCG Tablet NG (05:13)
[2024-06-23] MEDS: Jevity 1.5 1,000 ML 50 ML GT (05:14)
[2024-06-23] MEDS: Insulin Lispro 100 UNIT/ML INSULN.PEN SC ×4 (05:16→22:48)
[2024-06-23] MEDS: Insulin Lispro 100 UNIT/ML INSULN.PEN 8 UNIT SC ×2 (05:17→13:21)
[2024-06-23 05:57] LABS: Bedside Glucose 229 mg/dL (74-106)
--- NOTE | 2024-06-23 08:52 | PCM.PN.BLA ---
Progress Note Interval 24 hours: 60 from drains overnight (nursing reports that they're functioning well and that they're stripping them nicely). Still making urine. Cr downtrending. Hgb 8.6 this morning from 8.4 yesterday. Subjective: Able to follow commands this morning. Wants some ice chips (given by nursing). 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 Physical Exam Narrative NECK Incisional VAC holding suction. Incision c/d/i. Drains strip well and have had appropriate serosanguineous output, no clot. Neck is soft, no signs of hematoma. Const Constitutional Narrative: Following commands today and opening eyes but does not follow finger with eyes. Eyes PERRL Visual Acuity: complete vision loss bilateral (No response/reflex to my hand coming close to eyes. Unable to follow my finger despite following motor commands elsewhere. Says yes that he cannot see. ) Chest inspection of chest normal Resp normal respiratory effort Resp Narrative: 1 liter via NC, saturations in the mid 90s. Cardio regular rate Extremity Extremity Narrative: SCDs on and activated. Assessment & Plan Assessment/Plan (1) Status post cervical spinal fusion: PLAN: No signs of bleeding/hematoma reaccumulation this morning. Neuro: agree with neurology consultation for strokes. 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 Cardiopulmonary: Agree with continued anticoagulation for the pulmonary emboli (obligatory). No bleeding from plastic surgery standpoint. Agree with change to heparin drip in the setting of KELVIN. Nephrology: Agree with nephrology consultation. Making urine and Cr downtrending Heme/ID: Continue to transfuse for hemoglobin less than 7, no signs of infection from a surgical standpoint. Hgb reportedly 8.6 this morning. Infectious disease consultation for the Enterobacter growth, agree with cefepime. Abdomen: Appreciate GI. Monitor for melena as this has likely been source of anemia over last few days (bleeding duodenal ulcer coiled) FEN: continue to do tube feeds for nutrition and free water to balance electrolyte Endocrine: Continue tight blood glucose control as able (sugars recently in the 200s) Plastic surgery will continue to consult. Please let me know if there is any acute change or any issues. I have discussed the patient with the primary team. Incisional VAC to be changed on Monday, 24 Jun 2024. Continue drain care. Procedures Integumentary [id number]: [id number] Global Visit
[2024-06-23] MEDS: Pantoprazole Sodium 40 MG in 0.9% Normal Saline (100mL MB+) 100 ML 330 MG IV ×2 (09:53→22:47)
[2024-06-23] MEDS: Menthol/Lanolin/Calamine/Znox 113 GM Tube 1 APPLIC TOPICAL ×2 (09:54→22:49)
--- NOTE | 2024-06-23 10:14 | PCM.PN.HOSP ---
Reason for Visit Reason for Visit: Diagnoses Hypothyroidism, unspecified (06/04/24) Type 2 diabetes mellitus with hyperglycemia (06/04/24) Unspecified protein-calorie malnutrition (06/04/24) Obesity, unspecified (06/04/24) Hyperlipidemia, unspecified (06/04/24) Other specified diseases of spinal cord (06/04/24) Disease of spinal cord, unspecified (06/04/24) Essential (primary) hypertension (06/04/24) Cerebral infarction, unspecified (06/04/24) Acute respiratory failure with hypoxia (06/04/24) Gastrointestinal hemorrhage, unspecified (06/04/24) Unspecified osteoarthritis, unspecified site (06/04/24) Acute kidney failure, unspecified (06/04/24) Dysphagia, unspecified (06/04/24) Other injury of unspecified body region, initial encounter (06/04/24) Arthrodesis status (06/04/24) Subjective Subjective Saw patient at bedside this morning and again this afternoon when son and [id number] were here. Patient unfortunately has significant vision loss presume secondary to his recent stroke. He has minimal pupillary reflexes and it is suspected he is essentially blind. He does track to voice and eyes are open with this but he does not react to any visual stimuli. He also unfortunately did not do well with speech therapy yesterday or today. They noted that he has minimal oral reflexes present and the delayed cough noted. Continued to recommend n.p.o. status. On my discussion with family, I noted to them that it is very unlikely patient will regain his eyesight. Also noted we cannot be sure if and/or when his swelling may improve. Given these things, we suspect patient would have significant difficulty with any sort of rehab. I noted that patient is most appropriately a candidate for either long-term care in a senior care or hospice care. Family was resistant to the idea of hospice care today. They also noted that patient never wanted to be placed in a senior care. However, they were understanding that these are likely his only options at this time. I also told them that if they wanted to continue to be aggressive with his care, patient would need to have a PEG tube placed in the near future. They were going to discuss amongst themselves and amongst family before making a decision on PEG tube. They appear to be leaning more towards having PEG placed and moving forward with long-term care placement at this time. Objective Data Objective Data Vital Signs: Vital Signs Temp Pulse Resp BP Pulse Ox O2 Del Method O2 Flow Rate 98.1 F 84 18 125/57 H 98 Nasal Cannula 2 06/23/24 08:19 06/23/24 08:19 06/23/24 08:19 06/23/24 08:19 06/23/24 08:19 06/23/24 08:19 06/23/24 08:19 FiO2 30 06/20/24 11:50 Oxygen Flow Rate (L/min) 2 Oxygen Delivery Method Nasal Cannula Weight: 102 kg Body Mass Index (BMI) 35.2 Intake & Output: Intake and Output for Last 24 Hours 06/21/24 06/22/24 06/23/24 23:59 23:59 23:59 Intake Total 2089.17 / 2089.17 2863.93 / 2863.93 1149.17 / 1149.17 Output Total 220 / 765 2145 / 2360 565 / 565 Balance 1869.17 / 1324.17 718.93 / 503.93 584.17 / 584.17 Medical Nutrition Assessment Dietitian: Malnutrition Criteria Met Start: 06/16/24 10:42 Freq: Status: Active Protocol: Document 06/16/24 10:43 SB (Rec: 06/16/24 10:43 SB [id number]) Nutrition Malnutrition Evidence of Malnutrition Exists Yes Malnutrition (severe): Acute Illness/Injury Evidenced By Suboptimal Energy Intake ( Severe),Weight Loss (Severe) Intake Problem Inadequate Oral Intake Etiology related to mental status Signs/Symptoms as evidenced by NPO status. Status Active Problem Clinical Problem Acute Disease or Injury Related Malnutrition Etiology severe related to inadequate oral intake Signs/Symptoms as evidenced by PO meeting <50 % of estimated nutrition needs x 1 week, 7% unintentional weight loss x 2 weeks, and 2+ pitting edema in L arm. Status Active Problem Altered Nutrient-Related Laboratory Values Etiology related to endocrine dysfunction/diabetes Signs/Symptoms as evidenced by A1C 11% and glucose 254 Status Active Problem Recommendation Dietitian Recommendations/Changes Recommend advanced diet as tolerated to liberal regular diet d/t signs and symptoms of malnutrition, per DEPARTMENT EDITOR consistency/texture recommendations. Will d/c glucerna shake d/t NPO. Recommend initiating nutrition support in 24-48 hours if pt is still NPO. If nutrition support is initiated recommend Jevity 1. 5Cal goal rate 50ml/hr with 130ml flushes every 4 hours to provide 1800 calories, 76g protein, and 1692ml total fluid/day. Wound start at 10ml /hr d/t risk of refeeding syndrome and increase by 10ml every 8-12 hours as tolerated until goal rate is achieved. Will monitor weight, as available. Reviewed and approved by Jeanna Seals RDN, LD. Lab / Micro Data 06/23/24 03:17 06/23/24 03:17 Labs: Laboratory Results - last 24 hr 06/18/24 07:37: Crossmatch See Detail 06/21/24 11:37: Blood Type O POSITIVE, Antibody Screen NEGATIVE, Crossmatch See Detail 06/22/24 10:15: APTT 119.7 H* 06/22/24 12:23: POC Glucose 201 H 06/22/24 17:23: POC Glucose 219 H 06/22/24 20:40: WBC 15.3 H, RBC 3.00 L, Hgb 8.8 L, Hct 27.6 L, MCV 92.0, MCH 29.3, MCHC 31.9 L D, RDW Std Deviation 53.8 H, RDW Coeff of Tyesha 17.2 H, Plt Count 263, MPV 10.3, APTT 60.6 H 06/22/24 21:35: POC Glucose 137 H 06/22/24 23:21: POC Glucose 163 H 06/23/24 03:17: WBC 14.4 H, RBC 2.89 L, Hgb 8.6 L, Hct 26.2 L, MCV 90.7, MCH 29.8, MCHC 32.8, RDW Std Deviation 54.3 H, RDW Coeff of Tyesha 17.9 H, Plt Count 261, MPV 10.1, APTT 60.6 H, Sodium 149 H, Potassium 4.2, Chloride 122 H, Carbon Dioxide 24.0, Anion Gap 2 L, BUN 59 H, Creatinine 2.10 H, Estim Creat Clear Calc 30.24, Est GFR (MDRD) Af Amer 39 L, Est GFR (MDRD) Non-Af 32 L, BUN/Creatinine Ratio 28.1 H, Glucose 214 H, Calcium 7.6 L, Phosphorus 2.4 L, Magnesium 2.6 06/23/24 05:16: POC Glucose 229 H Micro: Microbiology 06/17/24 12:51 Wound - Neck Gram Stain - Final 06/17/24 12:51 Wound - Neck Wound Culture - Final Enterobacter cloacae complex 06/17/24 12:51 Wound - Neck Anaerobic Culture - Final No anaerobic bacteria isolated. 06/12/24 08:30 Blood Culture (Wb) - Anticubital Right Blood Culture - Final No growth in 5 days. 06/11/24 08:30 Urine Catheter - Catheter Urine Culture - Final Klebsiella oxytoca Radiography Diagnostic Testing: Radiology Impression Brain CT 06/22/24 09:00 IMPRESSION: Chronic involutional changes of the brain. 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 No hemorrhage. . Electronically Signed: Sagar Moseley MD at 11:12 EST , Physical Exam Const Constitutional Narrative: Elderly male, laying back in bed, mildly fatigued appearing, answering some questions with short appropriate responses, otherwise in no acute distress. HEENT normocephalic, head/scalp atraumatic, hearing grossly normal bilaterally and nasal mucous membranes and turbinates normal Eyes Eyes Narrative: Denies open but minimal pupillary reflex to light and patient not tracking with any movements. It appears that he is now blind. Neck Neck Narrative: Neck brace in place. Wound VAC in place with multiple drains noted with bloody to serosanguineous output. Stable. Lymph Lymphatic: no lymphadenopathy noted Chest inspection of chest normal Resp normal respiratory effort, no use of accessory muscles and clear to auscultation bilaterally Cardio regular rate, regular rhythm, no murmurs and peripheral pulses 2+ throughout GI normal to inspection, nondistended, normoactive bowel sounds, soft to palpation, non-tender and non-distended Extremity no pedal edema Extremity Narrative: Right hand with +1-2 pitting edema, stable. Notably good radial pulse and patient has been on anticoagulation throughout this hospitalization. No lower extremity edema and minimal left hand edema. Neuro Neuro Narrative: Patient more awake and alert and answering some questions with short up of her responses. Very weak throughout but no overt focal motor deficits noted in arms or legs. Sensorium / Orientation: awake and alert Assessment & Plan Assessment/Plan (1) Acute hypoxemic respiratory failure: (2) Status post cervical spinal fusion: PLAN: Plan Patient is an 83-year-old male who presented to [facility] ED on 06/04/2024 from the TCU for planned cervical spine procedure. Hospital course complicated by bilateral pulmonary emboli with right heart strain, sepsis secondary to Klebsiella UTI, anemia, KELVIN, metabolic encephalopathy with dysphagia, and acute CVA with resultant blindness. 1. Acute hypoxic respiratory failure secondary to bilateral pulmonary emboli with right heart strain, improving ? [employer] Salvager followed. Had postoperative acute respiratory failure on 06/05 requiring transfer to the ICU. CTA chest showed bilateral PE with right heart strain. Echo 06/06 showed EF 60%, severely dilated RV, moderately decreased RV systolic function. Treated with therapeutic Lovenox for the majority of this admission but changed to heparin drip on 06/21 given worsening renal function. Eventual plan is to transition to Eliquis once wound VAC changes are complete but this is on hold for now given clinical worsening as noted below. Stable on 4 L nasal cannula at rest currently. Monitor. 2. 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 Orthopedic surgery and plastic surgery following. Patient with initial C3-T1 fusion surgery with skin flap coverage on 06/04. Unfortunately had increasing serosanguineous to bloody output from the wound VAC in recent days along with worsening swelling near the incision site. CT C-spine on 06/17 showed a new 7 cm fluid collection in the posterior paraspinous musculature consistent with a postop hematoma. S/p incision and drainage with possible closure of the hematoma on 06/17, with replacement of drain and wound VAC. Cervical collar back in place. Will continue to follow closely and appreciate orthopedic and plastic surgery assistance. 3. Acute CVA with resultant blindness ? Patient with mental status change on morning of 06/21. Notably not able to participate in NIH scoring due to generalized weakness. CT brain without contrast showed new diminished density regions of the bilateral occipital lobes and cerebellar hemispheres consistent with recent infarct. Discussed with [facility] neurology and patient unfortunately unable to have CTA head/neck done due to worsening kidney function and contrast allergy, and also not able to have MRI done due to recent clips placed for gastric ulcers and concern that these are not MRI compatible. Repeat CT head without contrast on 06/22 with stable changes and no new findings. Patient unfortunately now appears to be blind, has minimal pupillary reflexes to light and does not track with any movement. Will continue heparin drip and high intensity statin. 4. Acute metabolic encephalopathy with dysphagia ? Speech therapy and nutrition following. Unclear etiology but suspected this was in part due to sedating medications along with overall generalized weakness. Was determined patient cannot take in p.o. safely and Dobbhoff tube was placed by GI on 06/20. Tube feeds initiated on 06/20, advanced to goal rate by 06/22. Refeeding labs with no significant abnormalities. Mentation with some improvement but patient continues to have minimal oral reflexes and delayed cough noted. Strongly suspect patient will need PEG tube placement prior to discharge if family wishes to continue with aggressive care. I have discussed PEG tube placement with him and they are still deciding on this. 5. Anemia ? Multifactorial secondary to blood loss and drainage from wound VAC, blood loss from GI bleed and lab draws. Hemoglobin 6.8 on 06/19, s/p 1 unit of blood with repeat hemoglobin 7.7 on 06/20. Hemoglobin again dropped to 5.8 on 06/22, s/p 2 units of blood with repeat hemoglobin 8.6. Continue to monitor CBC daily and transfuse for hemoglobin less than 7. 6. Upper GI bleed ? S/p EGD with Dr. Sanders on 06/20 for Dobbhoff tube placement, was found to have several duodenal ulcers with some active bleeding noted. 2 clips were placed with cessation of bleeding. Suspect ulcers were largely secondary to acute stress state, lack of recent p.o. intake and exacerbated by therapeutic anticoagulation. Will continue treatment with IV PPI twice daily. 7. Hypernatremia ? Presumed secondary to poor p.o. intake. Sodium peaked at 152, now improving with additional free water with tube feeds and supplemental IV fluids as needed. Most recent sodium 149 on 06/23. Continue to monitor daily sodium level. 8. KELVIN, improving ? Nephrology following. Baseline creatinine appears to be around 1.2. Creatinine worsened post procedure likely due to hypotension in setting of bilateral PE and UTI. Peak of 2.49 on 06/11. Creatinine has stabilized around 1.7-1.9 but then had significant worsening on 06/21 to creatinine 3.13. Suspected due to dehydration from n.p.o. status and discontinuation of maintenance IV fluids prior to Dobbhoff tube placement. Given significant fluid resuscitation on 06/21 and creatinine has improved back to 2.0 as of 06/23 and patient maintaining good urine output. Continue to monitor daily BMP and urine output. 9. Sepsis secondary to Klebsiella UTI, resolved ? Urine culture 06/11 grew greater than 100,000 Klebsiella. Blood cultures with no growth. Blood pressure improved with IV fluid resuscitation. Completed IV ceftriaxone for 7-day course total on 06/17. 10. Urinary retention ? Had Jeffrey catheter placed early in hospitalization due to retention. Continue Jeffrey at this time. Chronic medical conditions: ? Class II obesity: BMI 35 on admit. Complicates hospital course, care and prognosis. ? Type 2 diabetes mellitus: Patient on tube feeds. Treating with Lantus 20 units at night and 10 units every 6 hours with sliding scale insulin, adjust as needed. ? Hypertension: Holding home atenolol, losartan and Jardiance. ? Hyperlipidemia: Continue home statin. ? Hypothyroidism: Continue Synthroid. DVT prophylaxis: Not indicated, on heparin drip CODE STATUS: DNR CCA, DNI Expected disposition: TBD Total clinical time spent by myself addressing the patient's medical issues, reviewing all the data, and collaborating with patient's care team: 50 minutes. Charges/Coding Visit Charges Inpatient E&M: [id number] [facility] L3
[2024-06-23] MEDS: Cefepime HCl 1 GM in 0.9% Normal Saline (50mL MB+) 50 ML IV (10:25)
[2024-06-23] MEDS: Senna/Docusate Sodium 1 Tablet 2 TABLET NG ×2 (10:25→22:47)
[2024-06-23] MEDS: 0.9% Normal Saline (100mL Bag) 100 ML 15 ML IV (10:57)
[2024-06-23 13:46] LABS: Bedside Glucose 265 mg/dL (74-106)
[2024-06-23] MEDS: HEPARIN/D5w 25,000 UNITS 25,000 UNITS/250 ML IV.SOLN. 9 UNITS CONT INF (14:25)
[2024-06-23] MEDS: Midodrine HCl 5 MG Tablet 10 MG NG (17:29)
[2024-06-23] MEDS: Insulin Lispro 100 UNIT/ML INSULN.PEN 10 UNIT SC ×2 (17:32→22:48)
[2024-06-23 17:59] LABS: Bedside Glucose 231 mg/dL (74-106)
[2024-06-23] MEDS: Atorvastatin Calcium 40 MG Tablet PO (22:47)
[2024-06-23] MEDS: Insulin Glargine-YFGN 100 UNIT/ML Pen 25 UNIT SC (22:48)
[2024-06-23 23:33] LABS: Bedside Glucose 174 mg/dL (74-106)
[2024-06-24] VITALS (7 sets, daily range): BP systolic 106–122; BP diastolic 47–58; PULSE 83–92; RESP 14–20; TEMP 36.3–36.8; O2SAT 94–95; BMI 35.2; BMI 34.7
[2024-06-24] MEDS: oxyCODONE 5 MG Tablet PO ×2 (00:49→20:08)
[2024-06-24] MEDS: Jevity 1.5 1,000 ML 50 ML GT (03:44)
[2024-06-24 05:39] LABS: Hemoglobin 8.4 g/dL (13.0-16.5); Mean Corp Hgb Conc 32.3 g/dL (32-36); Mean Corpuscular Hgb 30.1 pg (27.0-32.0); Mean Corpuscular Volume 93.2 fL (80-94); Mean Platelet Vol. 10.1 fl (6.2-12.0); Platelet Count 237 K/mm3 (150-450); RBC Distribution Width CV 19.8 % (11.6-14.6); RBC Distribution Width SD 58.3 fl (35.1-43.9); Red Blood Count 2.79 M/mm3 (4.6-6.2)
[2024-06-24 05:52] LABS: Partial Thromboplast Time 56.4 Seconds (24.1-36.2)
[2024-06-24 06:15] LABS: Anion Gap 3 (5-15); BUN 48 mg/dL (7-18); BUN/Creat Ratio 28.1 RATIO (10-20); Calcium,Total 7.6 mg/dL (8.5-10.1); Chloride 118 mmol/L (98-107); Creatinine, Serum 1.71 mg/dL (0.70-1.30); EST Glomerular Filtration Rate 41 mL/min (>60); Est Glom Filt Rate - Afr Amer 49 mL/min (>60); Estimated Creatinine Clearance 36.32 ml/min; Glucose 274 mg/dL (74-106); Magnesium 2.4 mg/dL (1.6-2.6); Phosphorus 1.8 mg/dL (2.5-4.9); Potassium 4.2 mmol/L (3.5-5.1); Sodium Level 146 mmol/L (136-145)
[2024-06-24] MEDS: Acetaminophen 500 MG Tablet 1000 MG NG ×3 (06:50→23:14)
[2024-06-24] MEDS: Levothyroxine 75 MCG Tablet NG (06:51)
[2024-06-24 07:23] LABS: Bedside Glucose 211 mg/dL (74-106)
--- NOTE | 2024-06-24 07:36 | PCM.PN.SRG ---
Subjective Subjective Interval 24 hours: Drains holding suction and putting out less. VS have been stable. Hgb 8.4 this morning. Sugars still in the 200s while on the tube feeds. Getting free water flushes and electrolytes normalizing (Cr 1.71 today and BUN 48). Still unable to see. On rounds today, patient can follow commands (thumbs up, squeezes hand, opens eyes) and can name his sons. Going to work with PT today. Objective Data Objective Data Vital Signs: Vital Signs Temp Pulse Resp BP Pulse Ox O2 Del Method O2 Flow Rate 98.3 F 92 18 120/58 L 94 Room Air 1 06/24/24 03:56 06/24/24 03:56 06/24/24 03:56 06/24/24 03:56 06/24/24 03:56 06/24/24 03:56 06/23/24 10:30 FiO2 30 06/20/24 11:50 Oxygen Flow Rate (L/min) 1 Oxygen Delivery Method Room Air Weight: 221 lb 9.033 oz Body Mass Index (BMI) 34.7 Intake & Output: Intake and Output for Last 24 Hours 06/22/24 06/23/24 06/24/24 23:59 23:59 23:59 Intake Total 2863.93 / 2863.93 2671.52 / 2671.52 1650 / 1650 Output Total 2145 / 2360 1787 / 1787 600 / 600 Balance 718.93 / 503.93 884.52 / 884.52 1050 / 1050 Medical Nutrition Assessment Dietitian: Malnutrition Criteria Met Start: 06/16/24 10:42 Freq: Status: Active Protocol: Document 06/16/24 10:43 SB (Rec: 06/16/24 10:43 SB [id number]) Nutrition Malnutrition Evidence of Malnutrition Exists Yes Malnutrition (severe): Acute Illness/Injury Evidenced By Suboptimal Energy Intake ( Severe),Weight Loss (Severe) Intake Problem Inadequate Oral Intake Etiology related to mental status Signs/Symptoms as evidenced by NPO status. Status Active Problem Clinical Problem Acute Disease or Injury Related Malnutrition Etiology severe related to inadequate oral intake Signs/Symptoms as evidenced by PO meeting <50 % of estimated nutrition needs x 1 week, 7% unintentional weight loss x 2 weeks, and 2+ pitting edema in L arm. Status Active Problem Altered Nutrient-Related Laboratory Values Etiology related to endocrine dysfunction/diabetes Signs/Symptoms as evidenced by A1C 11% and glucose 254 Status Active Problem Recommendation Dietitian Recommendations/Changes Recommend advanced diet as tolerated to liberal regular diet d/t signs and symptoms of malnutrition, per AUTOMATIC QUILLING MACHINE OPERATOR consistency/texture recommendations. Will d/c glucerna shake d/t NPO. Recommend initiating nutrition support in 24-48 hours if pt is still NPO. If nutrition support is initiated recommend Jevity 1. 5Cal goal rate 50ml/hr with 130ml flushes every 4 hours to provide 1800 calories, 76g protein, and 1692ml total fluid/day. Wound start at 10ml /hr d/t risk of refeeding syndrome and increase by 10ml every 8-12 hours as tolerated until goal rate is achieved. Will monitor weight, as available. Reviewed and approved by Jeanna Seals RDN, LD. Lab / Micro Data 06/24/24 05:25 06/24/24 05:25 Labs: Laboratory Results - last 24 hr 06/23/24 13:15: POC Glucose 265 H 06/23/24 17:24: POC Glucose 231 H 06/23/24 22:43: POC Glucose 174 H 06/24/24 03:55: POC Glucose 211 H 06/24/24 05:25: WBC 12.0 H, RBC 2.79 L, Hgb 8.4 L, Hct 26.0 L, MCV 93.2, MCH 30.1, MCHC 32.3, RDW Std Deviation 58.3 H, RDW Coeff of Tyesha 19.8 H, Plt Count 237, MPV 10.1, APTT 56.4 H, Sodium 146 H, Potassium 4.2, Chloride 118 H, Carbon Dioxide 24.0, Anion Gap 3 L, BUN 48 H, Creatinine 1.71 H, Estim Creat Clear Calc 36.32, Est GFR (MDRD) Af Amer 49 L, Est GFR (MDRD) Non-Af 41 L, BUN/Creatinine Ratio 28.1 H, Glucose 274 H, Calcium 7.6 L, Phosphorus 1.8 L, Magnesium 2.4 Micro: Microbiology 06/21/24 09:25 Urine, Random Urine Culture - Preliminary Culture exhibits no growth. 06/17/24 12:51 Wound - Neck Gram Stain - Final 06/17/24 12:51 Wound - Neck Wound Culture - Final Enterobacter cloacae complex 12/16/24 12:51 Wound - Neck Anaerobic Culture - Final No anaerobic bacteria isolated. 06/12/24 08:30 Blood Culture (Wb) - Anticubital Right Blood Culture - Final No growth in 5 days. 06/11/24 08:30 Urine Catheter - Catheter Urine Culture - Final Klebsiella oxytoca Physical Exam Narrative NECK C collar removed and replaced for exam. No neck hematoma. Drains are SS (20 and 12 this past 24 hours), no clot - stip well. Const alert and oriented x3 Eyes Eyes Narrative: No tracking with eyes Blind Assessment & Plan Assessment/Plan (1) Hematoma: (2) Cervical myelopathy: (3) Status post cervical spinal fusion: PLAN: Plan Neuro: agree with neurology consultation for strokes. 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 Cardiopulmonary: Agree with continued anticoagulation for the pulmonary emboli (obligatory). No bleeding from plastic surgery standpoint. Agree with change to heparin drip in the setting of KELVIN. Nephrology: Agree with nephrology consultation. Making urine and Cr downtrending Heme/ID: Continue to transfuse for hemoglobin less than 7, no signs of infection from a surgical standpoint. Hgb 8.4 this morning. Infectious disease consultation for the Enterobacter growth, agree with cefepime (susceptible). Abdomen: Appreciate GI. Monitor for melena. FEN: continue to do tube feeds for nutrition and free water to balance electrolyte Endocrine: Continue tight blood glucose control as able (sugars recently in the 200s) Plastic surgery will continue to consult. Please let me know if there is any acute change or any issues. I have discussed the patient with the primary team and spine surgery today. Incisional VAC to be changed later today. Continue drain care. Charges/Coding Procedures Integumentary [id number]: [id number] Global Visit
[2024-06-24] MEDS: Insulin Lispro 100 UNIT/ML INSULN.PEN SC ×4 (08:22→23:33)
[2024-06-24] MEDS: Insulin Lispro 100 UNIT/ML INSULN.PEN 10 UNIT SC ×4 (08:23→23:34)
[2024-06-24] MEDS: Senna/Docusate Sodium 1 Tablet 2 TABLET NG ×2 (08:38→23:13)
[2024-06-24] MEDS: Menthol/Lanolin/Calamine/Znox 113 GM Tube 1 APPLIC TOPICAL ×2 (08:38→23:14)
[2024-06-24] MEDS: Midodrine HCl 5 MG Tablet 10 MG NG ×3 (08:38→17:00)
[2024-06-24] MEDS: Cefepime HCl 1 GM in 0.9% Normal Saline (50mL MB+) 50 ML IV (08:48)
[2024-06-24 09:33] LABS: Bedside Glucose 280 mg/dL (74-106)
[2024-06-24] MEDS: Pantoprazole Sodium 40 MG in 0.9% Normal Saline (100mL MB+) 100 ML 330 MG IV ×2 (09:58→23:32)
[2024-06-24 12:49] LABS: Bedside Glucose 183 mg/dL (74-106)
--- NOTE | 2024-06-24 13:16 | PCM.CONS.GEN ---
Assessment & Plan Assessment/Plan (1) Hematoma: PLAN: surg cx 06/17 with very rare enterobacter, cont cefepime for now. Will follow, thank you (2) Stroke/cerebrovascular accident: QUALIFIERS: CVA mechanism: unspecified Qualified Code(s): I63.9 - Cerebral infarction, unspecified HPI Consult Data Date of Consult: 06/24/24 HPI Narrative Reason for Consultation: surg cx (+) HPI Narrative: PHILLIP ANGEL, is a 83 M who presented 06/04/24 for C3-C7 laminectomy with C3-T1 posterior spinal instrumented fusion by Dr. Hernandez with flap placement by Dr. Chu. Post op course complicated by hypoxic resp failure, encephalopathy, KELVIN, and klebs uti (treated with 7 days ceftriaxone). Taken back to OR 06/[address] Farias for posterior hematoma. Had EGD 06/20 for GI bleed. Had new acute stroke 06/21. Surg cx with very rare enterobacter, started on cefepime 06/22. Due to mental status, unable to provide history or ROS. [facility], [facility] Medical History Abrasion Insulin dependent diabetes mellitus Thyroid disease Diabetes Non-smoker History of edema Nephrolithiasis Uncontrolled diabetes mellitus Lactose intolerance Debility Bilateral edema of lower extremity Osteoarthritis Stroke/cerebrovascular accident Hypothyroid High cholesterol Diabetes Hypertension Home Medications ?Medication ?Instructions ?Recorded ?Last Taken ?Type aspirin 325 mg tablet 325 mg PO DAILY@0800 HEALTH 08/20/16 05/31/24 History MAINTENANCE atenolol 25 mg tablet 25 mg PO QHS BP 08/20/16 11/19/23 22:55 History atorvastatin 40 mg tablet 40 mg PO QHS CHOLESTEROL 08/20/16 05/30/24 History levothyroxine 75 mcg tablet 75 mcg PO DAILY THYROID 08/20/16 06/04/24 History nitroglycerin 0.4 mg sublingual 0.4 mg sublingual Q5M PRN Chest 08/20/16 Unknown History tablet Pain insulin glargine-yfgn 100 unit/mL 27 unit subcut QHS Diabetes 12/19/22 11/19/23 23:25 History (3 mL) subcutaneous pen insulin lispro 100 unit/mL 9 unit subcut TID Diabetes 12/19/22 11/20/23 History subcutaneous pen (Humalog KwikPen (U-100) Insulin) glucosamine-chondroitin 250 mg-200 2 tab PO TID Supplement 11/16/23 Unknown History mg tablet (Osteo Bi-Flex) losartan 100 mg tablet 100 mg PO DAILY BP 11/16/23 06/04/24 History omega 2-xmo-ohv-fish oil 1,200 mg 1 cap PO BID Supplement 11/16/23 11/20/23 History (144 mg-216 mg) capsule (Fish Oil) acetaminophen 500 mg tablet 1,000 mg (2 x 500 mg) PO Q6H PRN 12/07/23 Unknown Rx PRN Pain Score 1-10 #0 tabs furosemide 40 mg tablet 40 mg PO DAILY Fluid retention 30 12/07/23 Unknown Rx days #30 tabs empagliflozin 25 mg tablet 25 mg PO DAILY Blood sugar 05/28/24 Unknown History (Jardiance) meloxicam 7.5 mg tablet 7.5 mg PO DAILY Osteoarthristis 05/28/24 Unknown History mupirocin 2 % topical ointment 1 applic topical TID Skin condition 05/28/24 Unknown History dexamethasone 4 mg tablet 8 mg (2 x 4 mg) PO TID Steroid #0 05/31/24 05/31/24 Rx tabs insulin lispro 100 unit/mL See Protocol subcut ACHS Blood 05/31/24 Unknown Rx subcutaneous pen (Humalog KwikPen sugar #0 mL (U-100) Insulin) nutrition tx glu 120 ml PO TIDCM supplement #0 mL 05/31/24 Unknown Rx intol,lac-free,soy-fiber 0.06 gram-1.2 kcal/mL liquid (Glucerna 1.2 Jai) hydrochlorothiazide 12.5 mg capsule 12.5 mg PO DAILY bp 06/04/24 Unknown History Allergy/AdvReac Type Severity Reaction Status Date / Time iodine Allergy Swelling Verified 05/28/24 19:28 Penicillins AdvReac Mild PT UNSURE Verified 05/28/24 19:28 OF REACTION Surgical History History of tonsillectomy History of appendectomy History of cholecystectomy Social History household members: none Smoking Status: Never smoker alcohol intake: never substance use type: does not use Physical Exam Const no apparent distress General Appearance: lethargic HEENT normocephalic and head/scalp atraumatic Eyes PERRL Neck Neck Narrative: in collar Resp normal air movement and clear to auscultation bilaterally Cardio regular rate and regular rhythm GI soft to palpation, non-tender and non-distended Extremity General Extremity: edema Skin Skin Narrative: reviewed wound photos Neuro Neuro Narrative: not following commands Medical Records Data Medical Nutrition Assessment Dietitian: Malnutrition Criteria Met Start: 06/16/24 10:42 Freq: Status: Active Protocol: Document 06/16/24 10:43 SB (Rec: 06/16/24 10:43 SB [id number]) Nutrition Malnutrition Evidence of Malnutrition Exists Yes Malnutrition (severe): Acute Illness/Injury Evidenced By Suboptimal Energy Intake ( Severe),Weight Loss (Severe) Intake Problem Inadequate Oral Intake Etiology related to mental status Signs/Symptoms as evidenced by NPO status. Status Active Problem Clinical Problem Acute Disease or Injury Related Malnutrition Etiology severe related to inadequate oral intake Signs/Symptoms as evidenced by PO meeting <50 % of estimated nutrition needs x 1 week, 7% unintentional weight loss x 2 weeks, and 2+ pitting edema in L arm. Status Active Problem Altered Nutrient-Related Laboratory Values Etiology related to endocrine dysfunction/diabetes Signs/Symptoms as evidenced by A1C 11% and glucose 254 Status Active Problem Recommendation Dietitian Recommendations/Changes Recommend advanced diet as tolerated to liberal regular diet d/t signs and symptoms of malnutrition, per GREEN END DEPARTMENT SUPERVISOR consistency/texture recommendations. Will d/c glucerna shake d/t NPO. Recommend initiating nutrition support in 24-48 hours if pt is still NPO. If nutrition support is initiated recommend Jevity 1. 5Cal goal rate 50ml/hr with 130ml flushes every 4 hours to provide 1800 calories, 76g protein, and 1692ml total fluid/day. Wound start at 10ml /hr d/t risk of refeeding syndrome and increase by 10ml every 8-12 hours as tolerated until goal rate is achieved. Will monitor weight, as available. Reviewed and approved by Jeanna Seals, EMPERATRIZ, LD. Lab / Micro Data Attestation: I reviewed the patient's lab results. 06/24/24 05:25 06/24/24 05:25 Labs: Laboratory Results - last 24 hr 06/23/24 13:15: POC Glucose 265 H 06/23/24 17:24: POC Glucose 231 H 06/23/24 22:43: POC Glucose 174 H 06/24/24 03:55: POC Glucose 211 H 06/24/24 05:25: WBC 12.0 H, RBC 2.79 L, Hgb 8.4 L, Hct 26.0 L, MCV 93.2, MCH 30.1, MCHC 32.3, RDW Std Deviation 58.3 H, RDW Coeff of Tyesha 19.8 H, Plt Count 237, MPV 10.1, APTT 56.4 H, Sodium 146 H, Potassium 4.2, Chloride 118 H, Carbon Dioxide 24.0, Anion Gap 3 L, BUN 48 H, Creatinine 1.71 H, Estim Creat Clear Calc 36.32, Est GFR (MDRD) Af Amer 49 L, Est GFR (MDRD) Non-Af 41 L, BUN/Creatinine Ratio 28.1 H, Glucose 274 H, Calcium 7.6 L, Phosphorus 1.8 L, Magnesium 2.4 06/24/24 08:22: POC Glucose 280 H 06/24/24 12:17: POC Glucose 183 H Micro: Microbiology 06/21/24 09:25 Urine, Random Urine Culture - Preliminary Culture exhibits no growth.
--- NOTE | 2024-06-24 14:01 | CASEMGMT ---
[facility] is not going to be able to take patient back. Patient is more appropriate for a community SNF that offers assistant terminal manager care. ROSIO called patient's son Demetris and let him know this information. Demetris said he is aware TCU does not offer fpc. He was just hoping patient could go to TCU and then the siblings could all get together and decide patient would go next. ROSIO explained ROSIO has a list of facilities that take patient's insurance. ROSIO offered to leave the list in patient's room. However Demetris asked if ROSIO could email it to him. Demetris's email address is . ROSIO emailed a list of [facility]ci facility providers including quality and resource use data and consistent with patient?s preferred geographic region, medical needs, and insurance network were provided from the [employer] Guide to patient's son Demetris. Debra MONTEJO
--- NOTE | 2024-06-24 14:09 | PN.ORTHO_ITS ---
Subjective Subjective Patient resting comfortably, able to be awake but did not respond much. New infarcts on CT. Nephrology and ID on consults. Tolerating NG feeds. Objective Data Objective Data Vital Signs: Vital Signs Temp Pulse Resp BP Pulse Ox O2 Del Method O2 Flow Rate 97.6 F L 89 20 H 115/53 L 95 Room Air 1 06/24/24 12:23 06/24/24 12:23 06/24/24 12:23 06/24/24 12:23 06/24/24 12:23 06/24/24 12:23 06/23/24 10:30 FiO2 30 06/20/24 11:50 Oxygen Flow Rate (L/min) 1 Oxygen Delivery Method Room Air Weight: 221 lb 9.033 oz Body Mass Index (BMI) 34.7 Intake & Output: Intake and Output for Last 24 Hours 06/22/24 06/23/24 06/24/24 23:59 23:59 23:59 Intake Total 2863.93 / 2863.93 2671.52 / 2671.52 1830 / 1830 Output Total 2145 / 2360 1787 / 1787 1105 / 1105 Balance 718.93 / 503.93 884.52 / 884.52 725 / 725 Medical Nutrition Assessment Dietitian: Malnutrition Criteria Met Start: 06/16/24 10:42 Freq: Status: Active Protocol: Document 06/16/24 10:43 SB (Rec: 06/16/24 10:43 SB [id number]) Nutrition Malnutrition Evidence of Malnutrition Exists Yes Malnutrition (severe): Acute Illness/Injury Evidenced By Suboptimal Energy Intake ( Severe),Weight Loss (Severe) Intake Problem Inadequate Oral Intake Etiology related to mental status Signs/Symptoms as evidenced by NPO status. Status Active Problem Clinical Problem Acute Disease or Injury Related Malnutrition Etiology severe related to inadequate oral intake Signs/Symptoms as evidenced by PO meeting <50 % of estimated nutrition needs x 1 week, 7% unintentional weight loss x 2 weeks, and 2+ pitting edema in L arm. Status Active Problem Altered Nutrient-Related Laboratory Values Etiology related to endocrine dysfunction/diabetes Signs/Symptoms as evidenced by A1C 11% and glucose 254 Status Active Problem Recommendation Dietitian Recommendations/Changes Recommend advanced diet as tolerated to liberal regular diet d/t signs and symptoms of malnutrition, per GRADES 1 THRU 6 VISITING TEACHER consistency/texture recommendations. Will d/c glucerna shake d/t NPO. Recommend initiating nutrition support in 24-48 hours if pt is still NPO. If nutrition support is initiated recommend Jevity 1. 5Cal goal rate 50ml/hr with 130ml flushes every 4 hours to provide 1800 calories, 76g protein, and 1692ml total fluid/day. Wound start at 10ml /hr d/t risk of refeeding syndrome and increase by 10ml every 8-12 hours as tolerated until goal rate is achieved. Will monitor weight, as available. Reviewed and approved by Jeanna Seals RDN, LD. Lab / Micro Data 06/24/24 05:25 06/24/24 05:25 Labs: Laboratory Results - last 24 hr 06/23/24 17:24: POC Glucose 231 H 06/23/24 22:43: POC Glucose 174 H 06/24/24 03:55: POC Glucose 211 H 06/24/24 05:25: WBC 12.0 H, RBC 2.79 L, Hgb 8.4 L, Hct 26.0 L, MCV 93.2, MCH 30.1, MCHC 32.3, RDW Std Deviation 58.3 H, RDW Coeff of Tyesha 19.8 H, Plt Count 237, MPV 10.1, APTT 56.4 H, Sodium 146 H, Potassium 4.2, Chloride 118 H, Carbon Dioxide 24.0, Anion Gap 3 L, BUN 48 H, Creatinine 1.71 H, Estim Creat Clear Calc 36.32, Est GFR (MDRD) Af Amer 49 L, Est GFR (MDRD) Non-Af 41 L, BUN/Creatinine Ratio 28.1 H, Glucose 274 H, Calcium 7.6 L, Phosphorus 1.8 L, Magnesium 2.4 06/24/24 08:22: POC Glucose 280 H 06/24/24 12:17: POC Glucose 183 H Micro: Microbiology 06/21/24 09:25 Urine, Random Urine Culture - Final Culture exhibits no growth. 06/17/24 12:51 Wound - Neck Gram Stain - Final 06/17/24 12:51 Wound - Neck Wound Culture - Final Enterobacter cloacae complex 06/17/24 12:51 Wound - Neck Anaerobic Culture - Final No anaerobic bacteria isolated. 06/12/24 08:30 Blood Culture (Wb) - Anticubital Right Blood Culture - Final No growth in 5 days. 06/11/24 08:30 Urine Catheter - Catheter Urine Culture - Final Klebsiella oxytoca Physical Exam Narrative Dressing with 2 drains and incisional VAC, managed by plastics. Neuroexam difficult to obtain today as patient did not respond well to commands Assessment & Plan Assessment/Plan (1) Status post cervical spinal fusion: PLAN: Plan Patient is now 3-week status post C3-T1 fusion in 1 week status post hematoma evacuation. 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 Nephrology on board, creatinine back to baseline. ID on consult for deep wound culture showing rare Enterobacter, cefepime for now. Plastic surgery, appreciate their management of drains and wound VAC. Collar on at all times. CT from last week shows hardware in good position. Will continue to follow
[2024-06-24] MEDS: HEPARIN/D5w 25,000 UNITS 25,000 UNITS/250 ML IV.SOLN. 9 UNITS CONT INF (17:10)
[2024-06-24 18:09] LABS: Bedside Glucose 275 mg/dL (74-106)
--- NOTE | 2024-06-24 18:39 | PCM.PN.HOSP ---
Reason for Visit Reason for Visit: Diagnoses Hypothyroidism, unspecified (06/04/24) Type 2 diabetes mellitus with hyperglycemia (06/04/24) Unspecified protein-calorie malnutrition (06/04/24) Obesity, unspecified (06/04/24) Hyperlipidemia, unspecified (06/04/24) Other specified diseases of spinal cord (06/04/24) Disease of spinal cord, unspecified (06/04/24) Essential (primary) hypertension (06/04/24) Cerebral infarction, unspecified (06/04/24) Acute respiratory failure with hypoxia (06/04/24) Gastrointestinal hemorrhage, unspecified (06/04/24) Unspecified osteoarthritis, unspecified site (06/04/24) Acute kidney failure, unspecified (06/04/24) Dysphagia, unspecified (06/04/24) Other injury of unspecified body region, initial encounter (06/04/24) Arthrodesis status (06/04/24) Subjective Subjective Patient was seen and examined today, I talked with his son by phone today and after talking with his siblings, he gave permission for the patient to undergo PEG tube placement. I contacted GI and it appears that tomorrow the PEG tube will be placed. Objective Data Objective Data Vital Signs: Vital Signs Temp Pulse Resp BP Pulse Ox O2 Del Method O2 Flow Rate 97.3 F L 83 14 106/47 L 94 Room Air 1 06/24/24 16:55 06/24/24 16:55 06/24/24 16:55 06/24/24 16:55 06/24/24 16:55 06/24/24 16:55 06/23/24 10:30 FiO2 30 06/20/24 11:50 Oxygen Flow Rate (L/min) 1 Oxygen Delivery Method Room Air Weight: 100.5 kg Body Mass Index (BMI) 34.7 Intake & Output: Intake and Output for Last 24 Hours 06/22/24 06/23/24 06/24/24 23:59 23:59 23:59 Intake Total 2863.93 / 2863.93 2671.52 / 2671.52 2070.75 / 2070.75 Output Total 2145 / 2360 1787 / 1787 1455 / 1455 Balance 718.93 / 503.93 884.52 / 884.52 615.75 / 615.75 Medical Nutrition Assessment Dietitian: Malnutrition Criteria Met Start: 06/16/24 10:42 Freq: Status: Active Protocol: Document 06/16/24 10:43 SB (Rec: 06/16/24 10:43 SB [id number]) Nutrition Malnutrition Evidence of Malnutrition Exists Yes Malnutrition (severe): Acute Illness/Injury Evidenced By Suboptimal Energy Intake ( Severe),Weight Loss (Severe) Intake Problem Inadequate Oral Intake Etiology related to mental status Signs/Symptoms as evidenced by NPO status. Status Active Problem Clinical Problem Acute Disease or Injury Related Malnutrition Etiology severe related to inadequate oral intake Signs/Symptoms as evidenced by PO meeting <50 % of estimated nutrition needs x 1 week, 7% unintentional weight loss x 2 weeks, and 2+ pitting edema in L arm. Status Active Problem Altered Nutrient-Related Laboratory Values Etiology related to endocrine dysfunction/diabetes Signs/Symptoms as evidenced by A1C 11% and glucose 254 Status Active Problem Recommendation Dietitian Recommendations/Changes Recommend advanced diet as tolerated to liberal regular diet d/t signs and symptoms of malnutrition, per PREMIUM CARD CANCELLATION CLERK consistency/texture recommendations. Will d/c glucerna shake d/t NPO. Recommend initiating nutrition support in 24-48 hours if pt is still NPO. If nutrition support is initiated recommend Jevity 1. 5Cal goal rate 50ml/hr with 130ml flushes every 4 hours to provide 1800 calories, 76g protein, and 1692ml total fluid/day. Wound start at 10ml /hr d/t risk of refeeding syndrome and increase by 10ml every 8-12 hours as tolerated until goal rate is achieved. Will monitor weight, as available. Reviewed and approved by Jeanna Seals RDN, LD. Lab / Micro Data 06/24/24 05:25 06/24/24 05:25 Labs: Laboratory Results - last 24 hr 06/23/24 22:43: POC Glucose 174 H 06/24/24 03:55: POC Glucose 211 H 06/24/24 05:25: WBC 12.0 H, RBC 2.79 L, Hgb 8.4 L, Hct 26.0 L, MCV 93.2, MCH 30.1, MCHC 32.3, RDW Std Deviation 58.3 H, RDW Coeff of Tyesha 19.8 H, Plt Count 237, MPV 10.1, APTT 56.4 H, Sodium 146 H, Potassium 4.2, Chloride 118 H, Carbon Dioxide 24.0, Anion Gap 3 L, BUN 48 H, Creatinine 1.71 H, Estim Creat Clear Calc 36.32, Est GFR (MDRD) Af Amer 49 L, Est GFR (MDRD) Non-Af 41 L, BUN/Creatinine Ratio 28.1 H, Glucose 274 H, Calcium 7.6 L, Phosphorus 1.8 L, Magnesium 2.4 06/24/24 08:22: POC Glucose 280 H 06/24/24 12:17: POC Glucose 183 H 06/24/24 17:13: POC Glucose 275 H Micro: Microbiology 06/21/24 09:25 Urine, Random Urine Culture - Final Culture exhibits no growth. 06/17/24 12:51 Wound - Neck Gram Stain - Final 06/17/24 12:51 Wound - Neck Wound Culture - Final Enterobacter cloacae complex 06/17/24 12:51 Wound - Neck Anaerobic Culture - Final No anaerobic bacteria isolated. 06/12/24 08:30 Blood Culture (Wb) - Anticubital Right Blood Culture - Final No growth in 5 days. 06/11/24 08:30 Urine Catheter - Catheter Urine Culture - Final Klebsiella oxytoca Physical Exam Const alert and no apparent distress Constitutional Narrative: Patient response to simple questions appropriately General Appearance: cooperative, well kempt and well developed Orientation / Consciousness: awake, oriented to person, oriented to place and oriented to time HEENT normocephalic, head/scalp atraumatic and moist oral mucous membranes Eyes PERRL, EOMs intact bilaterally and conjunctivae normal Neck supple, no JVD, thyroid normal and no carotid bruits General: trachea midline Resp normal respiratory effort, no retractions, no use of accessory muscles and clear to auscultation bilaterally Auscultation: Negative for rales, rhonchi or wheezes Cardio regular rate, regular rhythm, S1 normal heart sound, S2 normal heart sound, no murmurs, no rub and no gallops GI normal to inspection, nondistended, normoactive bowel sounds, soft to palpation, non-tender and non-distended Extremity no clubbing, cyanosis or edema Skin no rashes or lesions noted General Skin Exam: no breakdown Neuro CN's II-XII intact bilaterally, moves all extremities and no focal motor deficits Sensorium / Orientation: awake, alert, oriented to person and oriented to place Speech: speech normal Psych affect normal Assessment & Plan Assessment/Plan (1) Cervical myelopathy: PLAN: Plan 1. Acute hypoxic respiratory failure secondary to bilateral pulmonary emboli-patient's heparin drip will be held after 2 AM for PEG tube insertion tomorrow, will transition the patient over to Lovenox or Eliquis after that #2 acute CVA with blindness-patient will remain on high intensity statin at this time #3 acute metabolic encephalopathy with oropharyngeal dysphagia-etiology unclear, patient is able to respond to simple questions but does not carry on a conversation with this examiner #4 status post C3-T1 fusion with cellulitis-ID saw the patient today and has elected to continue his cefepime #5 acute protein caloric malnutrition-related to inadequate oral intake as evidenced by p.o. meeting less than 50% of estimated nutritional needs x 1 week, 7% unintentional weight loss x 2 weeks-patient is currently receiving tube feedings, nutritional services participating in the patient's care #6 anemia-likely acute in nature, etiology unclear at this time, patient's hemoglobin appears stable at this time, labs will be monitored as needed #7 acute kidney injury-patient's creatinine is improving, nephrology is participating in his care #8 sepsis secondary to Klebsiella urinary tract infection-resolved at this time Total clinical time spent by myself addressing the patient's medical issues, reviewing all of his data, and collaborating with patient's care team: 50 minutes Charges/Coding Visit Charges Inpatient E&M: [id number] [facility] Hosp L3
[2024-06-24] MEDS: Atorvastatin Calcium 40 MG Tablet PO (23:13)
[2024-06-24] MEDS: Insulin Glargine-YFGN 100 UNIT/ML Pen 25 UNIT SC (23:35)
[2024-06-25] VITALS (13 sets, daily range): BP systolic 102–138; BP diastolic 49–67; PULSE 78–110; RESP 14–18; TEMP 36.1–37.3; O2SAT 92–100; BMI 34.7; BMI 38.6
[2024-06-25] MEDS: Cefepime HCl 1 GM in 0.9% Normal Saline (50mL MB+) 50 ML IV ×3 (00:15→23:30)
[2024-06-25 01:08] LABS: Bedside Glucose 196 mg/dL (74-106)
[2024-06-25 06:38] LABS: Absolute Lymphocyte Count 1.71 X10^3/uL (0.83-4.51); Absolute Neutrophil Count 7.9 X10^3/uL (2.0-7.7); Basophil# 0.03 X10^3/uL; Basophil% 0.3 % (0-1); Eosinophils% 0.9 % (0-5); Hematocrit 24.6 % (40-54); Hemoglobin 7.8 g/dL (13.0-16.5); Lymphocyte # 1.71 X10^3/ul (0.83-4.51); Lymphocyte % 15.2 % (19-41); Mean Corp Hgb Conc 31.7 g/dL (32-36); Mean Corpuscular Hgb 29.9 pg (27.0-32.0); Mean Corpuscular Volume 94.3 fL (80-94); Mean Platelet Vol. 10.4 fl (6.2-12.0); Monocyte# 1.28 X10^3/uL; Monocyte% 11.4 % (0-10); NRBC Flagged by Analyzer 0.4 % (0-5); Neutrophil # 7.88 X10^3/uL (2.7-7.7); Neutrophil % 69.8 % (47-70); POSITIVE MORPHOLOGY YES; Platelet Count 252 K/mm3 (150-450); RBC Distribution Width CV 20.5 % (11.6-14.6); RBC Distribution Width SD 65.9 fl (35.1-43.9); Red Blood Count 2.61 M/mm3 (4.6-6.2); White Blood Count 11.3 K/mm3 (4.4-11.0)
[2024-06-25 06:42] LABS: Differential Indicated SCAN CRITERIA MET
[2024-06-25 06:48] LABS: Partial Thromboplast Time 26.8 Seconds (24.1-36.2)
[2024-06-25 06:50] LABS: Prothrombin Time (Protime)PT. 13.2 SECONDS (11.7-14.9)
[2024-06-25 07:08] LABS: Anion Gap 1 (5-15); BUN 42 mg/dL (7-18); BUN/Creat Ratio 27.5 RATIO (10-20); Calcium,Total 7.9 mg/dL (8.5-10.1); Chloride 121 mmol/L (98-107); Creatinine, Serum 1.53 mg/dL (0.70-1.30); EST Glomerular Filtration Rate 46 mL/min (>60); Est Glom Filt Rate - Afr Amer 56 mL/min (>60); Estimated Creatinine Clearance 42.89 ml/min; Glucose 78 mg/dL (74-106); Potassium 3.7 mmol/L (3.5-5.1); Sodium Level 147 mmol/L (136-145)
[2024-06-25 07:16] LABS: Anisocytosis 1+
[2024-06-25 07:20] LABS: Bedside Glucose 78 mg/dL (74-106)
[2024-06-25] MEDS: Pantoprazole Sodium 40 MG in 0.9% Normal Saline (100mL MB+) 100 ML 330 MG IV ×2 (08:33→21:50)
[2024-06-25] MEDS: 0.9% Saline Lock 10 ML Syringe IV ×2 (08:33→21:48)
[2024-06-25] MEDS: Menthol/Lanolin/Calamine/Znox 113 GM Tube 1 APPLIC TOPICAL ×2 (08:37→21:45)
--- NOTE | 2024-06-25 09:05 | PCM.PN.SRG ---
Subjective Subjective Interval 24 hours: Discussion about peg tube had with family and they agreed. On rounds today, patient can follow commands (thumbs up, squeezes hand, opens eyes). Objective Data Objective Data Vital Signs: Vital Signs Temp Pulse Resp BP Pulse Ox O2 Del Method O2 Flow Rate 97.7 F L 86 18 130/53 H 97 Room Air 1 06/25/24 06:51 06/25/24 06:51 06/25/24 06:51 06/25/24 06:51 06/25/24 06:51 06/25/24 08:19 06/23/24 10:30 FiO2 30 06/20/24 11:50 Oxygen Flow Rate (L/min) 1 Oxygen Delivery Method Room Air Weight: 246 lb 7.629 oz Body Mass Index (BMI) 38.6 Intake & Output: Intake and Output for Last 24 Hours 06/23/24 06/24/24 06/25/24 23:59 23:59 23:59 Intake Total 2671.52 / 2671.52 3358.25 / 3358.25 145 / 145 Output Total 1787 / 1787 1875 / 1875 200 / 200 Balance 884.52 / 884.52 1483.25 / 1483.25 -55 / -55 Medical Nutrition Assessment Dietitian: Malnutrition Criteria Met Start: 06/16/24 10:42 Freq: Status: Active Protocol: Document 06/16/24 10:43 SB (Rec: 06/16/24 10:43 SB [id number]) Nutrition Malnutrition Evidence of Malnutrition Exists Yes Malnutrition (severe): Acute Illness/Injury Evidenced By Suboptimal Energy Intake ( Severe),Weight Loss (Severe) Intake Problem Inadequate Oral Intake Etiology related to mental status Signs/Symptoms as evidenced by NPO status. Status Active Problem Clinical Problem Acute Disease or Injury Related Malnutrition Etiology severe related to inadequate oral intake Signs/Symptoms as evidenced by PO meeting <50 % of estimated nutrition needs x 1 week, 7% unintentional weight loss x 2 weeks, and 2+ pitting edema in L arm. Status Active Problem Altered Nutrient-Related Laboratory Values Etiology related to endocrine dysfunction/diabetes Signs/Symptoms as evidenced by A1C 11% and glucose 254 Status Active Problem Recommendation Dietitian Recommendations/Changes Recommend advanced diet as tolerated to liberal regular diet d/t signs and symptoms of malnutrition, per BUILDING CODE INSPECTOR consistency/texture recommendations. Will d/c glucerna shake d/t NPO. Recommend initiating nutrition support in 24-48 hours if pt is still NPO. If nutrition support is initiated recommend Jevity 1. 5Cal goal rate 50ml/hr with 130ml flushes every 4 hours to provide 1800 calories, 76g protein, and 1692ml total fluid/day. Wound start at 10ml /hr d/t risk of refeeding syndrome and increase by 10ml every 8-12 hours as tolerated until goal rate is achieved. Will monitor weight, as available. Reviewed and approved by Jeanna Seals RDN, MANISHA. Lab / Micro Data 06/25/24 06:04 06/25/24 06:04 Labs: Laboratory Results - last 24 hr 06/24/24 08:22: POC Glucose 280 H 06/24/24 12:17: POC Glucose 183 H 06/24/24 17:13: POC Glucose 275 H 06/24/24 23:27: POC Glucose 196 H 06/25/24 06:04: WBC 11.3 H, RBC 2.61 L, Hgb 7.8 L, Hct 24.6 L, MCV 94.3 H, MCH 29.9, MCHC 31.7 L, RDW Std Deviation 65.9 H, RDW Coeff of Tyesha 20.5 H, Plt Count 252, MPV 10.4, Immature Gran % (Auto) 2.400 H, Neut % (Auto) 69.8, Lymph % (Auto) 15.2 L, Hern[place] % (Auto) 11.4 H, Eos % (Auto) 0.9, Baso % (Auto) 0.3, Absolute Neuts (auto) 7.9 H, Absolute Lymphs (auto) 1.71, Nucleated RBC % 0.4, Anisocytosis 1+, PT 13.2, INR 1.0, APTT 26.8, Sodium 147 H, Potassium 3.7, Chloride 121 H, Carbon Dioxide 25.0, Anion Gap 1 L, BUN 42 H, Creatinine 1.53 H, Estim Creat Clear Calc 42.89, Est GFR (MDRD) Af Amer 56 L, Est GFR (MDRD) Non-Af 46 L, BUN/Creatinine Ratio 27.5 H, Glucose 78, Calcium 7.9 L 06/25/24 06:48: POC Glucose 78 Micro: Microbiology 06/21/24 09:25 Urine, Random Urine Culture - Final Culture exhibits no growth. 06/17/24 12:51 Wound - Neck Gram Stain - Final 06/17/24 12:51 Wound - Neck Wound Culture - Final Enterobacter cloacae complex 06/17/24 12:51 Wound - Neck Anaerobic Culture - Final No anaerobic bacteria isolated. 06/12/24 08:30 Blood Culture (Wb) - Anticubital Right Blood Culture - Final No growth in 5 days. 06/11/24 08:30 Urine Catheter - Catheter Urine Culture - Final Klebsiella oxytoca Physical Exam Narrative NECK C collar removed and replaced for exam. VAC removed. No neck hematoma. Drains are SS with appropriate output, no clot - stip well. Const alert and oriented x3 Eyes Eyes Narrative: No tracking with eyes Blind Assessment & Plan Assessment/Plan (1) Hematoma: (2) Cervical myelopathy: (3) Status post cervical spinal fusion: PLAN: Plan PLAN: Neuro: agree with neurology consultation for strokes. 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 Cardiopulmonary: Agree with continued anticoagulation for the pulmonary emboli (obligatory). No bleeding from plastic surgery standpoint. Agree with change to heparin drip in the setting of KELVIN. Nephrology: Agree with nephrology consultation. Making urine and Cr downtrending Heme/ID: Continue to transfuse for hemoglobin less than 7, no signs of infection from a surgical standpoint. Hgb stable. Infectious disease consultation for the Enterobacter growth, agree with cefepime (susceptible). Abdomen: Appreciate GI. Monitor for melena. FEN: continue to do tube feeds for nutrition and free water to balance electrolyte Endocrine: Continue tight blood glucose control as able (sugars recently in the 200s) Plastic surgery will continue to consult. Please let me know if there is any acute change or any issues. I have discussed the patient with the primary team and spine surgery today. Xeroform daily to the back with ABD pad. Continue drain care. PSU will continue to follow Charges/Coding Procedures Integumentary [id number]: [id number] Global Visit
--- NOTE | 2024-06-25 10:05 | PRE.ANES_ITS ---
ASA Classification* ASA Classification ASA Classification: 3 Assessment & Plan Anesthesia* Anesthesia Assessment Anesthesia Assessment: Discussed sedation and/or anesthesia options, risks, benefits, and alternatives with patient/parents/legal guardian/POA. Questions invited. The patient/parents/legal guardian/POA seems to understand and agrees to proceed with anesthesia plan. Reviewed the physical assessment, medical history, allergy history and patient home medications list prior to surgery/procedure/anesthetic and documented any changes. Performed airway and anesthesia risk assessments. Anesthesia Type Anesthesia Type: MAC History Source History Obtained from:: Chart and Parent/ Guardian (Medical information verified with son Demetris. Demetris is also the medical power of managing attorney and anesthesia consent was obtained through him.) Anesthesia Focused Assessment* Temperature: 97.3 F Pulse Rate: 89 Blood Pressure: 131/67 Respiratory Rate: 18 Pulse Ox: 100 Oxygen Delivery Method: Room Air Oxygen Flow Rate (L/min): 1 Fraction of Inspired Oxygen (FIO2): 30 Airway Assessment Mouth opens: 1 cm Mallampati Score: IV Neck Range of motion (ROM): Limited ROM Comment: Patient is unable to comply with airway exam. Unable to assess dentition. Patient is wearing his c-collar and unable to check range of motion. Focused Labs Anesthesia Preop lab: CBC WBC 11.3 K/mm3 (4.4-11.0) H 06/25/24 06:04 RBC 2.61 M/mm3 (4.6-6.2) L 06/25/24 06:04 Hgb 7.8 g/dL (13.0-16.5) L 06/25/24 06:04 Hct 24.6 % (40-54) L 06/25/24 06:04 Plt Count 252 K/mm3 (150-450) 06/25/24 06:04 CHEMISTRY Potassium 3.7 mmol/L (3.5-5.1) 06/25/24 06:04 Sodium 147 mmol/L (136-145) H 06/25/24 06:04 Magnesium 2.4 mg/dL (1.6-2.6) 06/24/24 05:25 Phosphorus 1.8 mg/dL (2.5-4.9) L 06/24/24 05:25 BUN 42 mg/dL (7-18) H 06/25/24 06:04 Creatinine 1.53 mg/dL (0.70-1.30) H 06/25/24 06:04 Glucose 78 mg/dL (74-106) 06/25/24 06:04 POC Glucose 78 mg/dL (74-106) 06/25/24 06:48 TSH 4.830 uIU/mL (0.358-3.740) H 06/20/24 05:26 COAG PT 13.2 SECONDS (11.7-14.9) 06/25/24 06:04 Pre-Assessment Diagnosis/Proposed Procedure Planned Operative Procedure(s): Esophagogastroduodenoscopy with percutaneous endoscopic gastrostomy tube. 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 When Was Last Pacemaker Check QUESTION #4 FULL TEXT: You/Your Family Experience fever (hyperthermia) with Anesthesia Last Oral Intake Last Oral intake: Last Oral Intake NPO since 00:00 06/04/24 12:02 Meds taken in AM with sips of No 06/25/24 02:40 water? Meds patient instructed to take am of surgery PONV PONV - multi operation forming machine setter: PONV - multi operation forming machine setter Female No 06/03/24 14:52 HX of Motion Sickness No 06/03/24 14:52 HX of N/V After Surgery No 06/03/24 14:52 Non-Smoker Yes 06/03/24 14:52 Duration of Surgery greater Yes 06/03/24 14:52 than 60 minutes Number of Risk Factors 2 06/03/24 14:52 PONV Score Moderate Risk 06/03/24 14:52 Height & Weight Height & Weight: Anesthesia: Height & Weight Height 5 ft 7 in 06/25/24 02:40 Weight: 111.8 kg 06/25/24 06:00 Body Mass Index (BMI) 38.6 06/25/24 06:00 Respiratory Assessment Respiratory Assessment - multi operation forming machine setter: Respiratory Tract Infection Hx - multi operation forming machine setter Hx Respiratory Tract Infection No 06/25/24 08:27 STOP Sleep Apnea STOP Sleep Apnea - multi operation forming machine setter: STOP Sleep Apnea - multi operation forming machine setter Hx Hypertension Yes 06/25/24 04:30 Hx Sleep Apnea No 06/17/24 14:30 CPAP BIPAP Do you snore loudly (louder No 06/04/24 21:43 than talking or can be heard Do you often feel tired/ No 06/04/24 21:43 fatigued/ sleepy during daytime? Has anyone observed you stop No 06/04/24 21:43 breathing during sleep? STOP Results Negative 06/20/24 13:20 QUESTION #5 FULL TEXT : Do you snore loudly (louder than talking or can be heard through closed doors)? Tobacco Use History Tobacco Use History - multi operation forming machine setter: Tobacco Use History - multi operation forming machine setter Tobacco Use Non-smoker 06/25/24 04:30 Smoking Status Never smoker 06/25/24 04:30 Hx Tobacco Use No 06/04/24 21:43 Years Smoking Packs Smoked per Day Smoking Cessation Date was within the last 15 years Hx Smoking Cessation Date Hx Smoking Cessation No 06/04/24 21:43 Counseling Hematologic Medial History Hematologic Hx - multi operation forming machine setter: Hematologic Medical Hx - roll icer Hx of Blood Transfusion No 06/04/24 21:43 Hx of Transfusion in last 3 No 06/04/24 21:43 Months Date of Last Transfusion (if within last 3 months) Ever experience any problems No 06/04/24 21:43 with transfusion(s)? Specify any problems Hx of Preganancy in last 3 N/A 06/04/24 21:43 Months Nurse Filling Out Transfusion [email or web address] 06/04/24 21:43 & Questions: Date: 06/04/24 06/04/24 21:43 Time: 21:47 06/04/24 21:43 Patient unable to answer at this time (ie. confused, unrespo /Reproduction History /Reproductive History - multi operation forming machine setter: /Reproductive Hx- multi operation forming machine setter Hx Now No 06/25/24 08:27 Gestational Age (in weeks): EDC: Hx Hx Para Hx Section SAB No 06/25/24 08:27 Active Medications Active Medications: Current Medications Generic Name Dose Route Start Last Admin Trade Name Freq PRN Reason Stop Dose Admin Acetaminophen 650 mg 06/19/24 08:11 06/19/24 23:03 Acetaminophen 650 Mg Suppository RC 650 mg Q6H PRN PRN Administration Pain 1-10 or Fever Acetaminophen 1,000 mg 06/20/24 22:00 06/25/24 05:46 Acetaminophen 500 Mg Tablet NG Not Given Q8 IMAN Atorvastatin Calcium 40 mg 06/04/24 22:00 06/24/24 23:13 Atorvastatin Calcium 40 Mg Tablet PO 40 mg QHS IMAN Administration Calamine/Phenol 1 applic 06/19/24 10:00 06/25/24 08:37 Menthol/Lanolin/Calamine/Znox 113 Gm Tube TOPICAL 1 applic BID IMAN Administration Protocol Glucagon 1 mg 06/05/24 02:48 Glucagon 1 Mg/Ml Syringe IM X1 PRN Hypoglycemia Protocol Heparin Sodium (Porcine) 0 unit 06/21/24 10:00 Heparin Injection (Vial) 5,000 Unit/Ml Vial IV UD PRN dose adjustment Protocol Sodium Chloride 500 mls @ 15 mls/hr 06/04/24 21:54 IV .[id number] PRN Saline Flush Sodium Chloride 500 mls @ 15 mls/hr 06/04/24 21:54 IV .[id number] PRN Additional IVPB Infusion Dextrose 250 mls @ 0 mls/hr 06/05/24 02:48 06/12/24 07:33 Dextrose 10%-Water IV Infused .Q0M PRN Infusion HYPOGLYCEMIA Protocol As Directed Pantoprazole Sodium 40 mg/ 110 mls @ 330 mls/hr 06/15/24 10:45 06/25/24 08:33 Sodium Chloride IV 330 mls/hr Q12 IMAN Administration Sodium Chloride 100 mls @ 15 mls/hr 06/19/24 08:25 06/24/24 10:04 IV Infused .Q6H40M PRN Infusion SALINE FLUSH Cefepime HCl 1 gm/ Sodium 50 mls @ 100 mls/hr 06/24/24 10:00 06/25/24 00:45 Chloride IV Infused Q12 IMAN Infusion Insulin Glargine 25 unit 06/23/24 22:00 06/24/24 23:35 Insulin Glargine-Yfgn 100 Unit/Ml Pen SC 25 unit QHS IMAN Administration Insulin Human Lispro 0 unit 06/16/24 12:00 06/25/24 07:41 Insulin Lispro 100 Unit/Ml Insuln.Pen SC Not Given Q6 [facility] Protocol Insulin Human Lispro 10 unit 06/23/24 18:00 06/25/24 07:41 Insulin Lispro 100 Unit/Ml Insuln.Pen SC Not Given Q6 [facility] Levothyroxine Sodium 75 mcg 06/21/24 06:00 06/25/24 05:46 Levothyroxine 75 Mcg Tablet NG Not Given DAILY@0600 [facility] Midodrine 10 mg 06/20/24 17:00 06/24/24 17:00 Midodrine Hcl 5 Mg Tablet NG 10 mg TIDCM IMAN Administration Ondansetron HCl 4 mg 06/04/24 17:53 Ondansetron 4 Mg/2 Ml Vial IV Q8H PRN PRN NAUSEA/VOMITING Oxycodone HCl 5 mg 06/23/24 15:54 06/24/24 20:08 Oxycodone 5 Mg Tablet PO 5 mg Q6H PRN PRN Administration Pain Score 6-10 Senna/Docusate Sodium 2 tablet 06/20/24 22:00 06/24/24 23:13 Senna/Docusate Sodium 1 Tablet NG 2 tablet BID IMAN Administration Sodium Chloride 10 - 40 ml 06/04/24 21:54 06/25/24 08:33 0.9% Saline Lock 10 Ml Syringe IV 10 ml UD PRN Administration SALINE FLUSH [facility] Medical History Abrasion Insulin dependent diabetes mellitus Thyroid disease Diabetes Non-smoker History of edema Nephrolithiasis Uncontrolled diabetes mellitus Lactose intolerance Debility Bilateral edema of lower extremity Osteoarthritis Stroke/cerebrovascular accident Hypothyroid High cholesterol Diabetes Hypertension Home Medications ?Medication ?Instructions ?Recorded ?Last Taken ?Type aspirin 325 mg tablet 325 mg PO DAILY@0800 [facility] 08/20/16 05/31/24 History MAINTENANCE atenolol 25 mg tablet 25 mg PO QHS BP 08/20/16 11/19/23 22:55 History atorvastatin 40 mg tablet 40 mg PO QHS CHOLESTEROL 08/20/16 05/30/24 History levothyroxine 75 mcg tablet 75 mcg PO DAILY THYROID 08/20/16 06/04/24 History nitroglycerin 0.4 mg sublingual 0.4 mg sublingual Q5M PRN Chest 08/20/16 Unknown History tablet Pain insulin glargine-yfgn 100 unit/mL 27 unit subcut QHS Diabetes 12/19/22 11/19/23 23:25 History (3 mL) subcutaneous pen insulin lispro 100 unit/mL 9 unit subcut TID Diabetes 12/19/22 11/20/23 History subcutaneous pen (Humalog KwikPen (U-100) Insulin) glucosamine-chondroitin 250 mg-200 2 tab PO TID Supplement 11/16/23 Unknown History mg tablet (Osteo Bi-Flex) losartan 100 mg tablet 100 mg PO DAILY BP 11/16/23 06/04/24 History omega 7-lqj-bdu-fish oil 1,200 mg 1 cap PO BID Supplement 11/16/23 11/20/23 History (144 mg-216 mg) capsule (Fish Oil) acetaminophen 500 mg tablet 1,000 mg (2 x 500 mg) PO Q6H PRN 12/07/23 Unknown Rx PRN Pain Score 1-10 #0 tabs furosemide 40 mg tablet 40 mg PO DAILY Fluid retention 30 12/07/23 Unknown Rx days #30 tabs empagliflozin 25 mg tablet 25 mg PO DAILY Blood sugar 05/28/24 Unknown History (Jardiance) meloxicam 7.5 mg tablet 7.5 mg PO DAILY Osteoarthristis 05/28/24 Unknown History mupirocin 2 % topical ointment 1 applic topical TID Skin condition 05/28/24 Unknown History dexamethasone 4 mg tablet 8 mg (2 x 4 mg) PO TID Steroid #0 05/31/24 05/31/24 Rx tabs insulin lispro 100 unit/mL See Protocol subcut ACHS Blood 05/31/24 Unknown Rx subcutaneous pen (Humalog KwikPen sugar #0 mL (U-100) Insulin) nutrition tx glu 120 ml PO TIDCM supplement #0 mL 05/31/24 Unknown Rx intol,lac-free,soy-fiber 0.06 gram-1.2 kcal/mL liquid (Glucerna 1.2 Jai) hydrochlorothiazide 12.5 mg capsule 12.5 mg PO DAILY bp 06/04/24 Unknown History Allergy/AdvReac Type Severity Reaction Status Date / Time iodine Allergy Swelling Verified 05/28/24 19:28 Penicillins AdvReac Mild PT UNSURE Verified 05/28/24 19:28 OF REACTION Surgical History History of tonsillectomy History of appendectomy History of cholecystectomy Social History household members: none Smoking Status: Never smoker alcohol intake: never substance use type: does not use Review of Systems (Anesthesia) ROS Narrative System reviewed and no additional complaints, except as documented.
[2024-06-25 10:46] LABS: Pathologist Review Reviewed
--- NOTE | 2024-06-25 11:41 | EX.PCM.PN.GI ---
Subjective Subjective Patient is doing well. He is for PEG tube today. The patient and the family are okay with him getting a PEG tube. His heparin has been held and his tube feedings have been held. Objective Data Objective Data Vital Signs: Vital Signs Temp Pulse Resp BP Pulse Ox O2 Del Method O2 Flow Rate 97.3 F L 89 18 131/67 H 100 Room Air 1 06/25/24 10:12 06/25/24 10:12 06/25/24 10:12 06/25/24 10:12 06/25/24 10:12 06/25/24 10:12 06/25/24 10:12 FiO2 30 06/25/24 10:12 Oxygen Flow Rate (L/min) 1 Oxygen Delivery Method Room Air Weight: 246 lb 7.629 oz Body Mass Index (BMI) 38.6 Intake & Output: Intake and Output for Last 24 Hours 06/23/24 06/24/24 06/25/24 23:59 23:59 23:59 Intake Total 2671.52 / 2671.52 3358.25 / 3358.25 255 / 255 Output Total 1787 / 1787 1875 / 1875 200 / 200 Balance 884.52 / 884.52 1483.25 / 1483.25 55 / 55 Medical Nutrition Assessment Dietitian: Malnutrition Criteria Met Start: 06/16/24 10:42 Freq: Status: Active Protocol: Document 06/16/24 10:43 SB (Rec: 06/16/24 10:43 SB [id number]) Nutrition Malnutrition Evidence of Malnutrition Exists Yes Malnutrition (severe): Acute Illness/Injury Evidenced By Suboptimal Energy Intake ( Severe),Weight Loss (Severe) Intake Problem Inadequate Oral Intake Etiology related to mental status Signs/Symptoms as evidenced by NPO status. Status Active Problem Clinical Problem Acute Disease or Injury Related Malnutrition Etiology severe related to inadequate oral intake Signs/Symptoms as evidenced by PO meeting <50 % of estimated nutrition needs x 1 week, 7% unintentional weight loss x 2 weeks, and 2+ pitting edema in L arm. Status Active Problem Altered Nutrient-Related Laboratory Values Etiology related to endocrine dysfunction/diabetes Signs/Symptoms as evidenced by A1C 11% and glucose 254 Status Active Problem Recommendation Dietitian Recommendations/Changes Recommend advanced diet as tolerated to liberal regular diet d/t signs and symptoms of malnutrition, per STORAGE MANAGEMENT CONSULTANT consistency/texture recommendations. Will d/c glucerna shake d/t NPO. Recommend initiating nutrition support in 24-48 hours if pt is still NPO. If nutrition support is initiated recommend Jevity 1. 5Cal goal rate 50ml/hr with 130ml flushes every 4 hours to provide 1800 calories, 76g protein, and 1692ml total fluid/day. Wound start at 10ml /hr d/t risk of refeeding syndrome and increase by 10ml every 8-12 hours as tolerated until goal rate is achieved. Will monitor weight, as available. Reviewed and approved by Jeanna Seals RDN, MANISHA. Lab / Micro Data 06/25/24 06:04 06/25/24 06:04 Labs: Laboratory Results - last 24 hr 06/22/24 06:26: Diff Path Review Reviewed 06/24/24 12:17: POC Glucose 183 H 06/24/24 17:13: POC Glucose 275 H 06/24/24 23:27: POC Glucose 196 H 06/25/24 06:04: WBC 11.3 H, RBC 2.61 L, Hgb 7.8 L, Hct 24.6 L, MCV 94.3 H, MCH 29.9, MCHC 31.7 L, RDW Std Deviation 65.9 H, RDW Coeff of Tyesha 20.5 H, Plt Count 252, MPV 10.4, Immature Gran % (Auto) 2.400 H, Neut % (Auto) 69.8, Lymph % (Auto) 15.2 L, Benson % (Auto) 11.4 H, Eos % (Auto) 0.9, Baso % (Auto) 0.3, Absolute Neuts (auto) 7.9 H, Absolute Lymphs (auto) 1.71, Nucleated RBC % 0.4, Anisocytosis 1+, PT 13.2, INR 1.0, APTT 26.8, Sodium 147 H, Potassium 3.7, Chloride 121 H, Carbon Dioxide 25.0, Anion Gap 1 L, BUN 42 H, Creatinine 1.53 H, Estim Creat Clear Calc 42.89, Est GFR (MDRD) Af Amer 56 L, Est GFR (MDRD) Non-Af 46 L, BUN/Creatinine Ratio 27.5 H, Glucose 78, Calcium 7.9 L 06/25/24 06:48: POC Glucose 78 Micro: Microbiology 06/21/24 09:25 Urine, Random Urine Culture - Final Culture exhibits no growth. 06/17/24 12:51 Wound - Neck Gram Stain - Final 06/17/24 12:51 Wound - Neck Wound Culture - Final Enterobacter cloacae complex 06/17/24 12:51 Wound - Neck Anaerobic Culture - Final No anaerobic bacteria isolated. 06/12/24 08:30 Blood Culture (Wb) - Anticubital Right Blood Culture - Final No growth in 5 days. 06/11/24 08:30 Urine Catheter - Catheter Urine Culture - Final Klebsiella oxytoca Physical Exam Const alert and no apparent distress Constitutional Narrative: Patient response to simple questions appropriately General Appearance: cooperative, well kempt and well developed Orientation / Consciousness: awake, oriented to person, oriented to place and oriented to time HEENT normocephalic, head/scalp atraumatic and moist oral mucous membranes Eyes PERRL, EOMs intact bilaterally and conjunctivae normal Neck supple, no JVD, thyroid normal and no carotid bruits General: trachea midline Resp normal respiratory effort, no retractions, no use of accessory muscles and clear to auscultation bilaterally Auscultation: Negative for rales, rhonchi or wheezes Cardio regular rate, regular rhythm, S1 normal heart sound, S2 normal heart sound, no murmurs, no rub and no gallops GI normal to inspection, nondistended, normoactive bowel sounds, soft to palpation, non-tender and non-distended Extremity no clubbing, cyanosis or edema Skin no rashes or lesions noted General Skin Exam: no breakdown Neuro CN's II-XII intact bilaterally, moves all extremities and no focal motor deficits Sensorium / Orientation: awake, alert, oriented to person and oriented to place Speech: speech normal Psych affect normal Assessment & Plan Assessment/Plan (1) Protein calorie malnutrition: (2) Dysphagia: (3) Stroke/cerebrovascular accident: QUALIFIERS: CVA mechanism: unspecified Qualified Code(s): I63.9 - Cerebral infarction, unspecified (4) GI bleed: (5) Acute hypoxemic respiratory failure: (6) Status post cervical spinal fusion: PLAN: Plan 83-year-old male who presented to [facility] ED on 06/04/2024 from the TCU for planned cervical spine procedure. Unfortunately he has developed bilateral pulmonary emboli with right heart strain, urosepsis, acute kidney injury, GI bleed, dysphagia and protein calorie malnutrition and and acute CVA. 1. Acute GI bleed with multiple ulcers in his stomach and duodenum likely secondary to antiplatelet therapy or anticoagulation in the setting of protein calorie malnutrition allowing for poor wound healing in the upper GI tract accompanied with bile and other proteolytic enzymes. Status post upper endoscopy with treatment of bleeding ulcers in the duodenum. Typically healing is very poor in the duodenum especially in the elderly on anticoagulation and antiplatelet therapy. Cautery or radiofrequency ablation was not performed to the ulcers due to the fact that he is on antiplatelet therapy and he he was high risk for recurrent bleeding due to poor platelet aggregation in the setting of cautery. If the clips need to be removed, they can be removed if the patient needs to have an MRI. Continue to follow H&H and continue PPI therapy. He would benefit from antisecretory therapy such as Misoprostol or Carafate due to the fact that proton pump in addition does not work very well away from the stomach. We will evaluate his previously seen bleeding sites endoscopically. 2. Status post placement of Dobbhoff tube. He is tolerating feedings and is currently up to goal. 3. Severe protein Malnutrition. He has not been able to swallow since suffering his stroke. Therefore the family has agreed to place a PEG tube. We will place that today. His tube feedings have been held and his heparin has been stopped since 1:00am this morning. Charges/Coding Visit Charges Inpatient E&M: 52341 Subs Hosp L3
--- NOTE | 2024-06-25 12:42 | OP.CCLET_ITS ---
06/25/2024 Demetris Fuentes [address] [place] [address] Re : Upper GI endoscopy procedure for Dewayne Archer Dear Dr. Fuentes This procedure was performed on Tuesday, June 25, 2024. My impressions and recommendations are as follows: Impressions : - No endoscopic esophageal abnormality to explain patient's dysphagia. - Erythematous mucosa in the gastric body. - Oozing duodenal ulcers with pigmented material. Treated with argon plasma coagulation (APC). - An endoscopically removable PEG placement was successfully completed. - No specimens collected. Recommendations : - [facility]. - Resume previous diet. - Continue present medications. My findings are described in the full procedure note, which is enclosed. If I can be of further assistance, please feel free to contact me at . Sincerely, Federico Sanders, 06/25/2024 12:42:13 PM This report has been signed electronically.
--- NOTE | 2024-06-25 12:42 | OP.EGD_ITS ---
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 Refer to note in patient chart for documentation of history and physical. Patient has symptoms of dysphagia with both liquids and solids. Complications: No immediate complications. Procedure: Pre-Anesthesia Assessment: - Prior to the procedure, a History and Physical was performed, and patient medications and allergies were reviewed. The patient is competent. The risks and benefits of the procedure and the sedation options and risks were discussed with the patient. All questions were answered and informed consent was obtained. Patient identification and proposed procedure were verified by the physician. Mental Status Examination: alert and oriented. Airway Examination: normal oropharyngeal airway and neck mobility. Respiratory Examination: clear to auscultation. CV Examination: normal. Prophylactic Antibiotics: The patient does not require prophylactic antibiotics. Prior Anticoagulants: The patient has taken heparin. ASA Grade Assessment: III - A patient with severe systemic disease. After reviewing the risks and benefits, the patient was deemed in satisfactory condition to undergo the procedure. The anesthesia plan was to use monitored anesthesia care (MAC). Immediately prior to administration of medications, the patient was re-assessed for adequacy to receive sedatives. The heart rate, respiratory rate, oxygen saturations, blood pressure, adequacy of pulmonary ventilation, and response to care were monitored throughout the procedure. The physical status of the patient was re-assessed after the procedure. After obtaining informed consent, the endoscope was passed under direct vision. Throughout the procedure, the patient's blood pressure, pulse, and oxygen saturations were monitored continuously. The Endoscope was introduced through the mouth, and advanced to the second part of duodenum. The upper GI endoscopy was accomplished without difficulty. The patient tolerated the procedure well. Scope In: 12:18:21 PM Scope Out: 12:34:06 PM Total Procedure Duration Time 0 hours 15 minutes 45 seconds Findings: No endoscopic abnormality was evident in the esophagus to explain the patient's complaint of dysphagia. Mildly erythematous mucosa without bleeding was found in the gastric body. The patient was placed in the supine position for PEG placement. The stomach was insufflated to appose gastric and abdominal wray. A site was located in the body of the stomach with excellent transillumination for placement. The abdominal wall was marked and prepped in a sterile manner. The area was anesthetized with 1 mL of 0.5% lidocaine. The trocar needle was introduced through the abdominal wall and into the stomach under direct endoscopic view. A snare was introduced through the endoscope and opened in the gastric lumen. The guide wire was passed through the trocar and into the open snare. The snare was closed around the guide wire. The endoscope and snare were removed, pulling the wire out through the mouth. A skin incision was made at the site of needle insertion. The endoscopically removable 20 Fr Bard gastrostomy tube was lubricated. The G-tube was tied to the guide wire and pulled through the mouth and into the stomach. The trocar needle was removed, and the gastrostomy tube was pulled out from the stomach through the skin. The external bumper was attached to the gastrostomy tube, and the tube was cut to remove the guide wire. The final position of the gastrostomy tube was confirmed by relook endoscopy, and skin marking noted to be 4 cm at the external bumper. The final tension and compression of the abdominal wall by the PEG tube and external bumper were checked and revealed that the bumper was moderately tight and mildly deforming the skin. The feeding tube was capped, and the tube site cleaned and dressed. Two oozing cratered duodenal ulcers with pigmented material were found in the duodenal bulb and in the second portion of the duodenum. The largest lesion was 20 mm in largest dimension. Coagulation for hemostasis using argon plasma at 0.3 liters/minute and 30 torres was successful. Estimated blood loss was minimal. Impression: - No endoscopic esophageal abnormality to explain patient's dysphagia. - Erythematous mucosa in the gastric body. - Oozing duodenal ulcers with pigmented material. Treated with argon plasma coagulation (APC). - An endoscopically removable PEG placement was successfully completed. - No specimens collected. Recommendation: - [facility]. - Resume previous diet. - Continue present medications. Procedure Code(s): --- Professional --- 61435, Esophagogastroduodenoscopy, flexible, transoral; with directed placement of percutaneous gastrostomy tube 71887, 59,51, Esophagogastroduodenoscopy, flexible, transoral; with control of bleeding, any method CPT copyright 2021 [employer]. All rights reserved. The codes documented in this report are preliminary and upon business continuity strategy director review may be revised to meet current compliance requirements. Federico Sanders DO 06/25/2024 12:42:13 PM This report has been signed electronically. Number of Addenda: 0 Note Initiated On: 06/25/2024 12:02 PM
--- NOTE | 2024-06-25 12:46 | PCM.POST.ANE ---
Anesthesia: Postop Eval I Current Vital Signs Temperature: 98.4 F Pulse Rate: 78 Blood Pressure: 121/60 Respiratory Rate: 16 Pulse Ox: 94 Oxygen Delivery Method: Room Air Assessment Airway patent: Yes Spontaneous unlabored respirations: Yes Mental status: Asleep nausea: No Vomiting: No Anesthesia Complication: No Fluid Hydration Crystalloid volume administer (ml): 60 Total IV fluid infused: 60 Progress Note Anesthesia document: Postop Eval 1 completed: Yes
[2024-06-25 13:27] LABS: Bedside Glucose 118 mg/dL (74-106)
--- NOTE | 2024-06-25 13:57 | PCM.PN.ORT ---
Subjective Subjective Just got back from the OR PEG tube placement. Responding to questions with yes and no. Denies any pain. Able to move all 4 extremities today with me. Objective Data Objective Data Vital Signs: Vital Signs Temp Pulse Resp BP Pulse Ox O2 Del Method O2 Flow Rate 98.1 F 89 16 102/62 94 Room Air 1 06/25/24 13:35 06/25/24 13:35 06/25/24 13:35 06/25/24 13:35 06/25/24 13:35 06/25/24 13:35 06/25/24 10:12 FiO2 30 06/25/24 10:12 Oxygen Flow Rate (L/min) 1 Oxygen Delivery Method Room Air Weight: 246 lb 7.629 oz Body Mass Index (BMI) 38.6 Intake & Output: Intake and Output for Last 24 Hours 06/23/24 06/24/24 06/25/24 23:59 23:59 23:59 Intake Total 2671.52 / 2671.52 3358.25 / 3358.25 305 / 305 Output Total 1787 / 1787 1875 / 1875 900 / 900 Balance 884.52 / 884.52 1483.25 / 1483.25 -595 / -595 Medical Nutrition Assessment Dietitian: Malnutrition Criteria Met Start: 06/16/24 10:42 Freq: Status: Active Protocol: Document 06/16/24 10:43 SB (Rec: 06/16/24 10:43 SB [id number]) Nutrition Malnutrition Evidence of Malnutrition Exists Yes Malnutrition (severe): Acute Illness/Injury Evidenced By Suboptimal Energy Intake ( Severe),Weight Loss (Severe) Intake Problem Inadequate Oral Intake Etiology related to mental status Signs/Symptoms as evidenced by NPO status. Status Active Problem Clinical Problem Acute Disease or Injury Related Malnutrition Etiology severe related to inadequate oral intake Signs/Symptoms as evidenced by PO meeting <50 % of estimated nutrition needs x 1 week, 7% unintentional weight loss x 2 weeks, and 2+ pitting edema in L arm. 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 Will d/c glucerna shake d/t NPO. Recommend initiating nutrition support in 24-48 hours if pt is still NPO. If nutrition support is initiated recommend Jevity 1. 5Cal goal rate 50ml/hr with 130ml flushes every 4 hours to provide 1800 calories, 76g protein, and 1692ml total fluid/day. Wound start at 10ml /hr d/t risk of refeeding syndrome and increase by 10ml every 8-12 hours as tolerated until goal rate is achieved. Will monitor weight, as available. Reviewed and approved by Jeanna Seals RDN, MAN[facility]. Lab / Micro Data 06/25/24 06:04 06/25/24 06:04 Labs: Laboratory Results - last 24 hr 06/22/24 06:26: Diff Path Review Reviewed 06/24/24 17:13: POC Glucose 275 H 06/24/24 23:27: POC Glucose 196 H 06/25/24 06:04: WBC 11.3 H, RBC 2.61 L, Hgb 7.8 L, Hct 24.6 L, MCV 94.3 H, MCH 29.9, MCHC 31.7 L, RDW Std Deviation 65.9 H, RDW Coeff of Tyesha 20.5 H, Plt Count 252, MPV 10.4, Immature Gran % (Auto) 2.400 H, Neut % (Auto) 69.8, Lymph % (Auto) 15.2 L, Emmet % (Auto) 11.4 H, Eos % (Auto) 0.9, Baso % (Auto) 0.3, Absolute Neuts (auto) 7.9 H, Absolute Lymphs (auto) 1.71, Nucleated RBC % 0.4, Anisocytosis 1+, PT 13.2, INR 1.0, APTT 26.8, Sodium 147 H, Potassium 3.7, Chloride 121 H, Carbon Dioxide 25.0, Anion Gap 1 L, BUN 42 H, Creatinine 1.53 H, Estim Creat Clear Calc 42.89, Est GFR (MDRD) Af Amer 56 L, Est GFR (MDRD) Non-Af 46 L, BUN/Creatinine Ratio 27.5 H, Glucose 78, Calcium 7.9 L 06/25/24 06:48: POC Glucose 78 06/25/24 13:10: POC Glucose 118 H Micro: Microbiology 06/21/24 09:25 Urine, Random Urine Culture - Final Culture exhibits no growth. 06/17/24 12:51 Wound - Neck Gram Stain - Final 06/17/24 12:51 Wound - Neck Wound Culture - Final Enterobacter cloacae complex 06/17/24 12:51 Wound - Neck Anaerobic Culture - Final No anaerobic bacteria isolated. 06/12/24 08:30 Blood Culture (Wb) - Anticubital Right Blood Culture - Final No growth in 5 days. 06/11/24 08:30 Urine Catheter - Catheter Urine Culture - Final Klebsiella oxytoca Physical Exam Narrative Dressing with 2 drains. Incisional VAC removed, managed by plastic. Neuroexam?able to move all 4 extremities on command. Assessment & Plan Assessment/Plan (1) Status post cervical spinal fusion: PLAN: Plan Patient is now 3-week status post C3-T1 fusion in 1 week status post hematoma evacuation. 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 Nephrology on board, creatinine back to baseline. ID on consult for deep wound culture showing rare Enterobacter, cefepime for now. Plastic surgery, appreciate their management of drains and wound VAC. GI endoscopy done and PEG tube placed today. Collar on at all times. CT from last week shows hardware in good position. Will continue to follow
--- NOTE | 2024-06-25 15:12 | PCM.POSTANE2 ---
Anesthesia Postop Eval I Sum Postop Eval Completion status Anesthesia document: Postop Eval 1 completed: Yes Anesthesia Postop Eval I Summary Anesthesia Postop Eval I Summary: Anesthesia Postop Eval I: Assessment Summary Airway patent Yes 06/25/24 12:47 [email or web address] Spontaneous unlabored Yes 06/25/24 12:47 [email or web address] respirations Mental status Asleep 06/25/24 12:47 [email or web address] nausea No 06/25/24 12:47 [email or web address] Vomiting No 06/25/24 12:47 [email or web address] Anesthesia Postop Eval I: Fluid Summary Crystalloid volume administer 60 06/25/24 12:47 [email or web address] (ml) Colloids volume administered ( ml) Blood Product volume administered (ml) Total IV fluid infused 60 06/25/24 12:47 [email or web address] Anesthesia Postop Eval I: Summary Notes Anesthesia Complication No 06/25/24 12:47 [email or web address] Anesthesia Complication Comment: Post-operative progress note Anesthesia: Postop Eval II Evaluation Mental status: Asleep (Patient is minimally responsive. This is unchanged from preop.) Pain Level: 1 nausea: No Vomiting: No Complications Anesthesia Complication: No
--- NOTE | 2024-06-25 15:29 | ANES.CONF2 ---
Anesthesia: Confirm Documents Multiple Procedures on Account (3) Confirmed Documents: Yes
[2024-06-25] MEDS: Jevity 1.5 1,000 ML 50 ML GT (17:14)
[2024-06-25] MEDS: Midodrine HCl 5 MG Tablet 10 MG NG (17:19)
--- NOTE | 2024-06-25 17:36 | PCM.PN.HOSP ---
Reason for Visit Reason for Visit: Diagnoses Hypothyroidism, unspecified (06/04/24) Type 2 diabetes mellitus with hyperglycemia (06/04/24) Unspecified protein-calorie malnutrition (06/04/24) Obesity, unspecified (06/04/24) Hyperlipidemia, unspecified (06/04/24) Other specified diseases of spinal cord (06/04/24) Disease of spinal cord, unspecified (06/04/24) Essential (primary) hypertension (06/04/24) Cerebral infarction, unspecified (06/04/24) Acute respiratory failure with hypoxia (06/04/24) Gastrointestinal hemorrhage, unspecified (06/04/24) Unspecified osteoarthritis, unspecified site (06/04/24) Acute kidney failure, unspecified (06/04/24) Dysphagia, unspecified (06/04/24) Other injury of unspecified body region, initial encounter (06/04/24) Arthrodesis status (06/04/24) Subjective Subjective Patient was seen and examined today, he underwent PEG tube placement and underwent an EGD, patient had oozing duodenal ulcers with pigmented material, this was treated with a plasma coagulation. I talked briefly with the patient's son and daughter in law and answer some medical questions for them. Objective Data Objective Data Vital Signs: Vital Signs Temp Pulse Resp BP Pulse Ox O2 Del Method O2 Flow Rate 97.5 F L 90 18 122/49 H 94 Room Air 1 06/25/24 17:00 06/25/24 17:00 06/25/24 17:00 06/25/24 17:00 06/25/24 17:00 06/25/24 17:00 06/25/24 10:12 FiO2 30 06/25/24 10:12 Oxygen Flow Rate (L/min) 1 Oxygen Delivery Method Room Air Weight: 111.8 kg Body Mass Index (BMI) 38.6 Intake & Output: Intake and Output for Last 24 Hours 06/23/24 06/24/24 06/25/24 23:59 23:59 23:59 Intake Total 2671.52 / 2671.52 3358.25 / 3358.25 305 / 305 Output Total 1787 / 1787 1875 / 1875 1110 / 1110 Balance 884.52 / 884.52 1483.25 / 1483.25 -805 / -805 Medical Nutrition Assessment Dietitian: Malnutrition Criteria Met Start: 06/16/24 10:42 Freq: Status: Active Protocol: Document 06/16/24 10:43 SB (Rec: 06/16/24 10:43 SB [id number]) Nutrition Malnutrition Evidence of Malnutrition Exists Yes Malnutrition (severe): Acute Illness/Injury Evidenced By Suboptimal Energy Intake ( Severe),Weight Loss (Severe) Intake Problem Inadequate Oral Intake Etiology related to mental status Signs/Symptoms as evidenced by NPO status. Status Active Problem Clinical Problem Acute Disease or Injury Related Malnutrition Etiology severe related to inadequate oral intake Signs/Symptoms as evidenced by PO meeting <50 % of estimated nutrition needs x 1 week, 7% unintentional weight loss x 2 weeks, and 2+ pitting edema in L arm. Status Active Problem Altered Nutrient-Related Laboratory Values Etiology related to endocrine dysfunction/diabetes Signs/Symptoms as evidenced by A1C 11% and glucose 254 Status Active Problem Recommendation Dietitian Recommendations/Changes Recommend advanced diet as tolerated to liberal regular diet d/t signs and symptoms of malnutrition, per MEASUREMENT AND VERIFICATION ENGINEER consistency/texture recommendations. Will d/c glucerna shake d/t NPO. Recommend initiating nutrition support in 24-48 hours if pt is still NPO. If nutrition support is initiated recommend Jevity 1. 5Cal goal rate 50ml/hr with 130ml flushes every 4 hours to provide 1800 calories, 76g protein, and 1692ml total fluid/day. Wound start at 10ml /hr d/t risk of refeeding syndrome and increase by 10ml every 8-12 hours as tolerated until goal rate is achieved. Will monitor weight, as available. Reviewed and approved by Jeanna Seals RDN, LD. Lab / Micro Data 06/25/24 06:04 06/25/24 06:04 Labs: Laboratory Results - last 24 hr 06/22/24 06:26: Diff Path Review Reviewed 06/24/24 17:13: POC Glucose 275 H 06/24/24 23:27: POC Glucose 196 H 06/25/24 06:04: WBC 11.3 H, RBC 2.61 L, Hgb 7.8 L, Hct 24.6 L, MCV 94.3 H, MCH 29.9, MCHC 31.7 L, RDW Std Deviation 65.9 H, RDW Coeff of Tyesha 20.5 H, Plt Count 252, MPV 10.4, Immature Gran % (Auto) 2.400 H, Neut % (Auto) 69.8, Lymph % (Auto) 15.2 L, Whitman % (Auto) 11.4 H, Eos % (Auto) 0.9, Baso % (Auto) 0.3, Absolute Neuts (auto) 7.9 H, Absolute Lymphs (auto) 1.71, Nucleated RBC % 0.4, Anisocytosis 1+, PT 13.2, INR 1.0, APTT 26.8, Sodium 147 H, Potassium 3.7, Chloride 121 H, Carbon Dioxide 25.0, Anion Gap 1 L, BUN 42 H, Creatinine 1.53 H, Estim Creat Clear Calc 42.89, Est GFR (MDRD) Af Amer 56 L, Est GFR (MDRD) Non-Af 46 L, BUN/Creatinine Ratio 27.5 H, Glucose 78, Calcium 7.9 L 06/25/24 06:48: POC Glucose 78 06/25/24 13:10: POC Glucose 118 H Micro: Microbiology 06/21/24 09:25 Urine, Random Urine Culture - Final Culture exhibits no growth. 06/17/24 12:51 Wound - Neck Gram Stain - Final 06/17/24 12:51 Wound - Neck Wound Culture - Final Enterobacter cloacae complex 06/17/24 12:51 Wound - Neck Anaerobic Culture - Final No anaerobic bacteria isolated. 06/12/24 08:30 Blood Culture (Wb) - Anticubital Right Blood Culture - Final No growth in 5 days. 06/11/24 08:30 Urine Catheter - Catheter Urine Culture - Final Klebsiella oxytoca Physical Exam Narrative alert and no apparent distress Constitutional Narrative: Patient response to simple questions appropriately General Appearance: cooperative, well kempt and well developed Orientation / Consciousness: awake, oriented to person, oriented to place and oriented to time HEENT normocephalic, head/scalp atraumatic and moist oral mucous membranes Eyes PERRL, EOMs intact bilaterally and conjunctivae normal Neck supple, no JVD, thyroid normal and no carotid bruits General: trachea midline Resp normal respiratory effort, no retractions, no use of accessory muscles and clear to auscultation bilaterally Auscultation: Negative for rales, rhonchi or wheezes Cardio regular rate, regular rhythm, S1 normal heart sound, S2 normal heart sound, no murmurs, no rub and no gallops GI PEG tube was in place Extremity no clubbing, cyanosis or edema Skin no rashes or lesions noted General Skin Exam: no breakdown Neuro CN's II-XII intact bilaterally, moves all extremities and no focal motor deficits Sensorium / Orientation: awake, alert, oriented to person and oriented to place Speech: speech normal Psych affect normal Assessment & Plan Assessment/Plan (1) GI bleed: (2) Cervical myelopathy: PLAN: Plan 1. Acute hypoxic respiratory failure secondary to bilateral pulmonary emboli-due to the patient's bleeding duodenal ulcers, I have elected to restart the patient's anticoagulant tomorrow #2 acute CVA with blindness-patient will remain on high intensity statin at this time #3 acute metabolic encephalopathy with oropharyngeal dysphagia-etiology unclear, patient is able to respond to simple questions but does not carry on a conversation with this examiner #4 status post C3-T1 fusion with cellulitis-ID saw the patient today and has elected to continue his cefepime #5 acute protein caloric malnutrition-related to inadequate oral intake as evidenced by p.o. meeting less than 50% of estimated nutritional needs x 1 week, 7% unintentional weight loss x 2 weeks-patient is currently receiving tube feedings, nutritional services participating in the patient's care #6 anemia-likely acute in nature, secondary to bleeding duodenal ulcers-CBC will be repeated tomorrow #7 acute kidney injury-patient's creatinine is improving, nephrology is participating in his care #8 sepsis secondary to Klebsiella urinary tract infection-resolved at this time #9 bleeding duodenal ulcers-CBC will be rechecked tomorrow, patient remains on a PPI Total clinical time spent by myself addressing the patient's medical issues, reviewing all of his data, and collaborating with patient's care team: 35 minutes Charges/Coding Visit Charges Inpatient E&M: 34722 Subs Hosp L2
[2024-06-25] MEDS: Insulin Lispro 100 UNIT/ML INSULN.PEN 10 UNIT SC ×2 (17:45→23:31)
[2024-06-25 18:05] LABS: Bedside Glucose 136 mg/dL (74-106)
[2024-06-25] MEDS: Acetaminophen 500 MG Tablet 1000 MG NG (21:44)
[2024-06-25] MEDS: Atorvastatin Calcium 40 MG Tablet PO (21:44)
[2024-06-25] MEDS: Insulin Glargine-YFGN 100 UNIT/ML Pen 25 UNIT SC (23:30)
[2024-06-25] MEDS: Insulin Lispro 100 UNIT/ML INSULN.PEN SC (23:32)
[2024-06-26 01:11] LABS: Bedside Glucose 184 mg/dL (74-106)
[2024-06-26 03:38] VITALS: BP 117/56; PULSE 105; RESP 18; TEMP 36.8; O2SAT 93
[2024-06-26] MEDS: oxyCODONE 5 MG Tablet PO (03:43)
[2024-06-26 05:46] VITALS: BMI 38.6
[2024-06-26 06:00] VITALS: BMI 37.0
[2024-06-26] MEDS: Acetaminophen 500 MG Tablet 1000 MG NG ×3 (06:27→22:48)
[2024-06-26] MEDS: Levothyroxine 75 MCG Tablet NG (06:27)
[2024-06-26 06:45] LABS: Absolute Lymphocyte Count 1.24 X10^3/uL (0.83-4.51); Absolute Neutrophil Count 7.7 X10^3/uL (2.0-7.7); Basophil# 0.01 X10^3/uL; Basophil% 0.1 % (0-1); Eosinophil# 0.09 X10^3/uL; Eosinophils% 0.9 % (0-5); Hematocrit 24.6 % (40-54); Hemoglobin 7.7 g/dL (13.0-16.5); Lymphocyte # 1.24 X10^3/ul (0.83-4.51); Mean Corp Hgb Conc 31.3 g/dL (32-36); Mean Corpuscular Hgb 30.4 pg (27.0-32.0); Mean Corpuscular Volume 97.2 fL (80-94); Mean Platelet Vol. 10.1 fl (6.2-12.0); Monocyte# 1.12 X10^3/uL; Monocyte% 10.9 % (0-10); NRBC Flagged by Analyzer 0 % (0-5); Neutrophil # 7.72 X10^3/uL (2.7-7.7); Neutrophil % 74.7 % (47-70); POSITIVE MORPHOLOGY YES; Platelet Count 242 K/mm3 (150-450); RBC Distribution Width CV 20.5 % (11.6-14.6); RBC Distribution Width SD 71.3 fl (35.1-43.9); Red Blood Count 2.53 M/mm3 (4.6-6.2); White Blood Count 10.3 K/mm3 (4.4-11.0)
[2024-06-26] MEDS: Insulin Lispro 100 UNIT/ML INSULN.PEN SC ×2 (06:50→13:07)
[2024-06-26] MEDS: Insulin Lispro 100 UNIT/ML INSULN.PEN 10 UNIT SC ×3 (06:51→23:49)
[2024-06-26 07:00] LABS: Differential Indicated SCAN CRITERIA MET
[2024-06-26 07:10] LABS: Bedside Glucose 205 mg/dL (74-106)
[2024-06-26 07:29] LABS: Anisocytosis 2+; Differential Comment SCANNED
[2024-06-26 07:31] VITALS: O2SAT 96
[2024-06-26 09:01] VITALS: BP 131/58; PULSE 77; RESP 16; TEMP 36.6; O2SAT 97
[2024-06-26] MEDS: Menthol/Lanolin/Calamine/Znox 113 GM Tube 1 APPLIC TOPICAL ×2 (09:04→22:47)
[2024-06-26] MEDS: Midodrine HCl 5 MG Tablet 10 MG NG ×3 (09:04→18:00)
[2024-06-26] MEDS: Cefepime HCl 1 GM in 0.9% Normal Saline (50mL MB+) 50 ML IV ×2 (09:08→22:48)
[2024-06-26] MEDS: Pantoprazole Sodium 40 MG in 0.9% Normal Saline (100mL MB+) 100 ML 330 MG IV ×2 (09:09→22:49)
--- NOTE | 2024-06-26 11:22 | PCM.PN.BLA ---
Progress Note Peg tube yesterday. GI saw two more duodenal ulcers. Primary team held blood thinner. No issues with drains overnight per nursing. Physical Exam Narrative NECK C collar removed and replaced for exam. VAC removed. No neck hematoma. Drains are SS with appropriate output, no clot - stip well. Eyes Eyes Narrative: No tracking with eyes Blind Assessment & Plan Assessment/Plan (1) Hematoma: (2) Cervical myelopathy: (3) Status post cervical spinal fusion: PLAN: Plan PLAN: Neuro: agree with neurology consultation for strokes. 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 Cardiopulmonary: Agree with continued anticoagulation for the pulmonary emboli (obligatory). No bleeding from plastic surgery standpoint. Agree with change to heparin drip in the setting of KELVIN. Nephrology: Agree with nephrology consultation. Making urine and Cr downtrending Heme/ID: Continue to transfuse for hemoglobin less than 7, no signs of infection from a surgical standpoint. Hgb stable. Infectious disease consultation for the Enterobacter growth, agree with cefepime (susceptible). Abdomen: Appreciate GI. Monitor for melena. FEN: Agree with peg tube Endocrine: Continue tight blood glucose control as able (sugars have improved) Plastic surgery will continue to consult. Please let me know if there is any acute change or any issues. I have discussed the patient with the primary team and spine surgery today. Xeroform daily to the back with ABD pad. Continue drain care. [facility] will continue to follow
[2024-06-26 13:03] VITALS: BP 107/56; PULSE 91; RESP 16; TEMP 36.6; O2SAT 96
[2024-06-26] MEDS: Jevity 1.5 1,000 ML 50 ML GT (13:13)
--- NOTE | 2024-06-26 14:52 | PCM.PN.HOSP ---
Reason for Visit Reason for Visit: Diagnoses Hypothyroidism, unspecified (06/04/24) Type 2 diabetes mellitus with hyperglycemia (06/04/24) Unspecified protein-calorie malnutrition (06/04/24) Obesity, unspecified (06/04/24) Hyperlipidemia, unspecified (06/04/24) Other specified diseases of spinal cord (06/04/24) Disease of spinal cord, unspecified (06/04/24) Essential (primary) hypertension (06/04/24) Cerebral infarction, unspecified (06/04/24) Acute respiratory failure with hypoxia (06/04/24) Gastrointestinal hemorrhage, unspecified (06/04/24) Unspecified osteoarthritis, unspecified site (06/04/24) Acute kidney failure, unspecified (06/04/24) Dysphagia, unspecified (06/04/24) Other injury of unspecified body region, initial encounter (06/04/24) Arthrodesis status (06/04/24) Subjective Subjective Patient was seen and examined today, he does not appear to be in any distress, hemoglobin appears stable at this time. Tube feeds were restarted on the patient. I will restart patient's Lovenox tonight. Objective Data Objective Data Vital Signs: Vital Signs Temp Pulse Resp BP Pulse Ox O2 Del Method O2 Flow Rate 97.8 F 91 16 107/56 L 96 Room Air 1 06/26/24 13:03 06/26/24 13:03 06/26/24 13:03 06/26/24 13:03 06/26/24 13:03 06/26/24 13:03 06/25/24 10:12 FiO2 30 06/25/24 10:12 Oxygen Flow Rate (L/min) 1 Oxygen Delivery Method Room Air Weight: 107.4 kg Body Mass Index (BMI) 37.0 Intake & Output: Intake and Output for Last 24 Hours 06/24/24 06/25/24 06/26/24 23:59 23:59 23:59 Intake Total 3358.25 / 3358.25 615 / 665 1609.17 / 1609.17 Output Total 1875 / 1875 1510 / 1510 330 / 330 Balance 1483.25 / 1483.25 -895 / -845 1279.17 / 1279.17 Medical Nutrition Assessment Dietitian: Malnutrition Criteria Met Start: 06/16/24 10:42 Freq: Status: Active Protocol: Document 06/16/24 10:43 SB (Rec: 06/16/24 10:43 SB [id number]) Nutrition Malnutrition Evidence of Malnutrition Exists Yes Malnutrition (severe): Acute Illness/Injury Evidenced By Suboptimal Energy Intake ( Severe),Weight Loss (Severe) Intake Problem Inadequate Oral Intake Etiology related to mental status Signs/Symptoms as evidenced by NPO status. Status Active Problem Clinical Problem Acute Disease or Injury Related Malnutrition Etiology severe related to inadequate oral intake Signs/Symptoms as evidenced by PO meeting <50 % of estimated nutrition needs x 1 week, 7% unintentional weight loss x 2 weeks, and 2+ pitting edema in L arm. Status Active Problem Altered Nutrient-Related Laboratory Values Etiology related to endocrine dysfunction/diabetes Signs/Symptoms as evidenced by A1C 11% and glucose 254 Status Active Problem Recommendation Dietitian Recommendations/Changes Recommend advanced diet as tolerated to liberal regular diet d/t signs and symptoms of malnutrition, per FIELD TECHNICAL SUPPORT CONSULTANT consistency/texture recommendations. Will d/c glucerna shake d/t NPO. Recommend initiating nutrition support in 24-48 hours if pt is still NPO. If nutrition support is initiated recommend Jevity 1. 5Cal goal rate 50ml/hr with 130ml flushes every 4 hours to provide 1800 calories, 76g protein, and 1692ml total fluid/day. Wound start at 10ml /hr d/t risk of refeeding syndrome and increase by 10ml every 8-12 hours as tolerated until goal rate is achieved. Will monitor weight, as available. Reviewed and approved by Jeanna Seals RDN, MANISHA. Lab / Micro Data 06/26/24 06:27 06/25/24 06:04 Labs: Laboratory Results - last 24 hr 06/25/24 17:43: POC Glucose 136 H 06/25/24 23:26: POC Glucose 184 H 06/26/24 06:27: WBC 10.3, RBC 2.53 L, Hgb 7.7 L, Hct 24.6 L, MCV 97.2 H, MCH 30.4, MCHC 31.3 L, RDW Std Deviation 71.3 H, RDW Coeff of Tyesha 20.5 H, Plt Count 242, MPV 10.1, Immature Gran % (Auto) 1.400 H, Neut % (Auto) 74.7 H, Lymph % (Auto) 12.0 L, Craven % (Auto) 10.9 H, Eos % (Auto) 0.9, Baso % (Auto) 0.1, Absolute Neuts (auto) 7.7, Absolute Lymphs (auto) 1.24, Nucleated RBC % 0, Differential Comment SCANNED, Anisocytosis 2+ 06/26/24 06:49: POC Glucose 205 H Micro: Microbiology 06/21/24 09:25 Urine, Random Urine Culture - Final Culture exhibits no growth. 06/17/24 12:51 Wound - Neck Gram Stain - Final 06/17/24 12:51 Wound - Neck Wound Culture - Final Enterobacter cloacae complex 06/17/24 12:51 Wound - Neck Anaerobic Culture - Final No anaerobic bacteria isolated. 06/12/24 08:30 Blood Culture (Wb) - Anticubital Right Blood Culture - Final No growth in 5 days. 06/11/24 08:30 Urine Catheter - Catheter Urine Culture - Final Klebsiella oxytoca Physical Exam Narrative alert and no apparent distress Constitutional Narrative: Patient response to simple questions appropriately General Appearance: cooperative, well kempt and well developed Orientation / Consciousness: awake, oriented to person, oriented to place and oriented to time HEENT normocephalic, head/scalp atraumatic and moist oral mucous membranes Eyes PERRL, EOMs intact bilaterally and conjunctivae normal Neck supple, no JVD, thyroid normal and no carotid bruits General: trachea midline Resp normal respiratory effort, no retractions, no use of accessory muscles and clear to auscultation bilaterally Auscultation: Negative for rales, rhonchi or wheezes Cardio regular rate, regular rhythm, S1 normal heart sound, S2 normal heart sound, no murmurs, no rub and no gallops GI PEG tube was in place Extremity no clubbing, cyanosis or edema Skin no rashes or lesions noted General Skin Exam: no breakdown Neuro CN's II-XII intact bilaterally, moves all extremities and no focal motor deficits Sensorium / Orientation: awake, alert, oriented to person and oriented to place Speech: speech normal Psych affect normal Assessment & Plan Assessment/Plan (1) Acute hypoxemic respiratory failure: (2) GI bleed: (3) Cervical myelopathy: PLAN: Plan 1. Acute hypoxic respiratory failure secondary to bilateral pulmonary emboli-due to the patient's bleeding duodenal ulcers, I have elected to restart the patient's anticoagulant tonight, currently is on room air #2 acute CVA with blindness-patient will remain on high intensity statin at this time #3 acute metabolic encephalopathy with oropharyngeal dysphagia-etiology unclear, patient is able to respond to simple questions but does not carry on a conversation with this examiner #4 status post C3-T1 fusion with cellulitis-ID saw the patient today and has elected to continue his cefepime #5 acute protein caloric malnutrition-related to inadequate oral intake as evidenced by p.o. meeting less than 50% of estimated nutritional needs x 1 week, 7% unintentional weight loss x 2 weeks-patient is currently receiving tube feedings, nutritional services participating in the patient's care #6 anemia-likely acute in nature, secondary to bleeding duodenal ulcers-CBC will be repeated tomorrow #7 acute kidney injury-patient's creatinine is improving, nephrology is participating in his care #8 sepsis secondary to Klebsiella urinary tract infection-resolved at this time #9 bleeding duodenal ulcers-CBC will be rechecked tomorrow, patient remains on a PPI Total clinical time spent by myself addressing the patient's medical issues, reviewing all of his data, and collaborating with patient's care team: 35 minutes Charges/Coding Visit Charges Inpatient E&M: 83595 Subs Hosp L2
[2024-06-26 16:34] VITALS: BMI 37.0
[2024-06-26 17:55] VITALS: BP 125/46; PULSE 80; RESP 14; TEMP 36.4; O2SAT 95
[2024-06-26 18:01] LABS: Bedside Glucose 151 mg/dL (74-106)
[2024-06-26 19:21] LABS: Bedside Glucose 91 mg/dL (74-106)
[2024-06-26 21:03] LABS: Bedside Glucose 102 mg/dL (74-106)
[2024-06-26 22:31] VITALS: BP 117/59; PULSE 77; RESP 16; TEMP 36.6; O2SAT 93
[2024-06-26] MEDS: Atorvastatin Calcium 40 MG Tablet PO (22:47)
[2024-06-26] MEDS: Enoxaparin 100 MG/ML Syringe SC (22:47)
[2024-06-26] MEDS: Senna/Docusate Sodium 1 Tablet 2 TABLET NG (22:48)
[2024-06-27 00:04] LABS: Bedside Glucose 147 mg/dL (74-106)
[2024-06-27 03:24] VITALS: BP 115/59; PULSE 78; RESP 14; TEMP 36.4; O2SAT 97
[2024-06-27 04:28] VITALS: BMI 37.0
[2024-06-27 04:50] VITALS: BMI 36.8
[2024-06-27] MEDS: Levothyroxine 75 MCG Tablet NG (05:30)
[2024-06-27] MEDS: Acetaminophen 500 MG Tablet 1000 MG NG ×3 (05:30→22:32)
[2024-06-27 05:56] LABS: Bedside Glucose 108 mg/dL (74-106)
[2024-06-27 08:59] VITALS: BP 100/44; PULSE 69; RESP 17; TEMP 36.5; O2SAT 94
[2024-06-27 09:15] LABS: Absolute Lymphocyte Count 1.38 X10^3/uL (0.83-4.51); Basophil# 0.02 X10^3/uL; Basophil% 0.2 % (0-1); Eosinophil# 0.19 X10^3/uL; Eosinophils% 1.8 % (0-5); Hematocrit 25.3 % (40-54); Hemoglobin 7.7 g/dL (13.0-16.5); Lymphocyte # 1.38 X10^3/ul (0.83-4.51); Lymphocyte % 12.7 % (19-41); Mean Corp Hgb Conc 30.4 g/dL (32-36); Mean Corpuscular Hgb 29.5 pg (27.0-32.0); Mean Corpuscular Volume 96.9 fL (80-94); Mean Platelet Vol. 10.3 fl (6.2-12.0); Monocyte# 1.09 X10^3/uL; Monocyte% 10.1 % (0-10); NRBC Flagged by Analyzer 0.2 % (0-5); Neutrophil # 8.04 X10^3/uL (2.7-7.7); Neutrophil % 74.2 % (47-70); POSITIVE MORPHOLOGY YES; Platelet Count 220 K/mm3 (150-450); RBC Distribution Width CV 20.3 % (11.6-14.6); RBC Distribution Width SD 71.7 fl (35.1-43.9); Red Blood Count 2.61 M/mm3 (4.6-6.2); White Blood Count 10.8 K/mm3 (4.4-11.0)
[2024-06-27 09:21] LABS: Differential Indicated SCAN CRITERIA MET
--- NOTE | 2024-06-27 09:49 | CASEMGMT ---
Addendum entered by Carito Ovalles 06/27/24 10:40: Social Work SW spoke w/Dr. Nicole. He spoke w/the consulting physicians, pt is ready for discharge today, is already on oral antibiotics. SW called son back, let him know what Dr. Sullivan had relayed to ROSIO. SW asked Demetris to speak w/his brother and get back to SW today w/choices. Demetris will speak w/his brother and get back to SW later today. SW will continue to follow. JIHAN Diego Original Note: Social Work SW called son Demetris in regard to SNF choices. Demetris states that they are not going to be able to give choices for a couple of days, as he needs to speak w/his siblings about it. He states he sent the list to his brother on Monday. SW asked if he could try to get us choices by the end of the day, as SW was informed by Dr. Sullivan that pt is medically ready for discharge. Pt's son Demetris then went on to tell SW that family spoke w/Dr. Chu told family that he is concerned about pt's prosthetic and the bacteria forming, and that pt would be here another week. SW explained will reach out to Dr. Nicole to inquire about what Dr. Chu had said, and again asked Demetris to speak w/siblings and come up w/choices. Demetris informed SW that pt's other son would not be in town until Monday. SW gave Demetris this SW's number to call should they come up w/choices. SW sent a message to Dr. Sullivan regarding what Dr. Chu had said, will await a response. JIHAN Diego
--- NOTE | 2024-06-27 09:53 | CASEMGMT ---
Social Work PHQ-9 not completed as pt would not be able to participate in the conversation due to ongoing confusion. JIHAN Diego
[2024-06-27 09:55] LABS: Anisocytosis 1+
--- NOTE | 2024-06-27 10:10 | PCM.PN.ID ---
Physical Exam Narrative Feeling ok, no fever, no abd pain Const alert and no apparent distress General Appearance: cooperative Resp normal air movement and clear to auscultation bilaterally Cardio regular rate and regular rhythm GI soft to palpation, non-tender and non-distended Skin Skin Narrative: in c-collar, reviewed photos ID ID: Route of nutrition/ use of supplements: [] Nutritional Intake: [] IV Site: [] Jeffrey Catheter: [] Assessment & Plan Assessment/Plan (1) Hematoma: PLAN: surg cx 06/17 with very rare enterobacter, cont cefepime for now. Plan on 7 days of abx, stop date 06/29, can change to po cipro 500mg bid to complete course. Will follow, d/w Dr. Sullivan (2) Stroke/cerebrovascular accident: QUALIFIERS: CVA mechanism: unspecified Qualified Code(s): I63.9 - Cerebral infarction, unspecified
[2024-06-27] MEDS: Pantoprazole Sodium 40 MG in 0.9% Normal Saline (100mL MB+) 100 ML 330 MG IV ×2 (10:17→21:52)
[2024-06-27] MEDS: Jevity 1.5 1,000 ML 50 ML GT (10:18)
[2024-06-27] MEDS: Menthol/Lanolin/Calamine/Znox 113 GM Tube 1 APPLIC TOPICAL ×2 (10:22→22:32)
[2024-06-27] MEDS: Senna/Docusate Sodium 1 Tablet 2 TABLET NG ×2 (10:23→22:32)
[2024-06-27] MEDS: Enoxaparin 100 MG/ML Syringe SC ×2 (10:23→22:31)
[2024-06-27] MEDS: Midodrine HCl 5 MG Tablet 10 MG NG ×3 (10:24→18:39)
[2024-06-27] MEDS: Cefepime HCl 1 GM in 0.9% Normal Saline (50mL MB+) 50 ML IV ×2 (10:45→22:29)
[2024-06-27] MEDS: Insulin Lispro 100 UNIT/ML INSULN.PEN SC ×3 (11:02→22:52)
[2024-06-27] MEDS: Insulin Lispro 100 UNIT/ML INSULN.PEN 10 UNIT SC ×2 (11:03→18:45)
[2024-06-27 11:37] LABS: Bedside Glucose 193 mg/dL (74-106)
[2024-06-27 13:18] VITALS: BMI 36.8
[2024-06-27 14:13] VITALS: BP 111/53; PULSE 75; RESP 16; TEMP 36.8; O2SAT 98
--- NOTE | 2024-06-27 14:35 | PN.ORTHO_ITS ---
Subjective Subjective Seen with Dr. Hernandez. Patient answers all questions with yeah. Does not follow simple commands. Appears to not be in any distress. PEG tube placement 06/25, tolerating well. Moves all 4 extremities. Objective Data Objective Data Vital Signs: Vital Signs Temp Pulse Resp BP Pulse Ox O2 Del Method O2 Flow Rate 98.3 F 75 16 111/53 L 98 Room Air 1 06/27/24 14:13 06/27/24 14:13 06/27/24 14:13 06/27/24 14:13 06/27/24 14:13 06/27/24 14:13 06/25/24 10:12 FiO2 30 06/25/24 10:12 Oxygen Flow Rate (L/min) 1 Oxygen Delivery Method Room Air Weight: 235 lb 3.732 oz Body Mass Index (BMI) 36.8 Intake & Output: Intake and Output for Last 24 Hours 06/25/24 06/26/24 06/27/24 23:59 23:59 23:59 Intake Total 615 / 665 2894.17 / 2894.17 2618 / 2618 Output Total 1510 / 1510 1045 / 1360 1365 / 1365 Balance -895 / -845 1849.17 / 1534.17 1253 / 1253 Medical Nutrition Assessment Dietitian: Malnutrition Criteria Met Start: 06/16/24 10:42 Freq: Status: Active Protocol: Document 06/16/24 10:43 SB (Rec: 06/16/24 10:43 SB [id number]) Nutrition Malnutrition Evidence of Malnutrition Exists Yes Malnutrition (severe): Acute Illness/Injury Evidenced By Suboptimal Energy Intake ( Severe),Weight Loss (Severe) Intake Problem Inadequate Oral Intake Etiology related to mental status Signs/Symptoms as evidenced by NPO status. Status Active Problem Clinical Problem Acute Disease or Injury Related Malnutrition Etiology severe related to inadequate oral intake Signs/Symptoms as evidenced by PO meeting <50 % of estimated nutrition needs x 1 week, 7% unintentional weight loss x 2 weeks, and 2+ pitting edema in L arm. Status Active Problem Altered Nutrient-Related Laboratory Values Etiology related to endocrine dysfunction/diabetes Signs/Symptoms as evidenced by A1C 11% and glucose 254 Status Active Problem Recommendation Dietitian Recommendations/Changes Recommend advanced diet as tolerated to liberal regular diet d/t signs and symptoms of malnutrition, per SURGICAL APPLIANCES SALESPERSON consistency/texture recommendations. Will d/c glucerna shake d/t NPO. Recommend initiating nutrition support in 24-48 hours if pt is still NPO. If nutrition support is initiated recommend Jevity 1. 5Cal goal rate 50ml/hr with 130ml flushes every 4 hours to provide 1800 calories, 76g protein, and 1692ml total fluid/day. Wound start at 10ml /hr d/t risk of refeeding syndrome and increase by 10ml every 8-12 hours as tolerated until goal rate is achieved. Will monitor weight, as available. Reviewed and approved by Jeanna Seals, EMPERATRIZ, MANISHA. Lab / Micro Data 06/27/24 09:11 06/25/24 06:04 Labs: Laboratory Results - last 24 hr 06/26/24 13:07: POC Glucose 151 H 06/26/24 17:59: POC Glucose 91 06/26/24 20:42: POC Glucose 102 06/26/24 23:45: POC Glucose 147 H 06/27/24 05:22: POC Glucose 108 H 06/27/24 09:11: WBC 10.8, RBC 2.61 L, Hgb 7.7 L, Hct 25.3 L, MCV 96.9 H, MCH 29.5, MCHC 30.4 L, RDW Std Deviation 71.7 H, RDW Coeff of Tyesha 20.3 H, Plt Count 220, MPV 10.3, Immature Gran % (Auto) 1.000 H, Neut % (Auto) 74.2 H, Lymph % (Auto) 12.7 L, Larue % (Auto) 10.1 H, Eos % (Auto) 1.8, Baso % (Auto) 0.2, A bsolute Neuts (auto) 8.0 H, Absolute Lymphs (auto) 1.38, Nucleated RBC % 0.2, Anisocytosis 1+ 06/27/24 10:59: POC Glucose 193 H Micro: Microbiology 06/21/24 09:25 Urine, Random Urine Culture - Final Culture exhibits no growth. 06/17/24 12:51 Wound - Neck Gram Stain - Final 06/17/24 12:51 Wound - Neck Wound Culture - Final Enterobacter cloacae complex 06/17/24 12:51 Wound - Neck Anaerobic Culture - Final No anaerobic bacteria isolated. 06/12/24 08:30 Blood Culture (Wb) - Anticubital Right Blood Culture - Final No growth in 5 days. 06/11/24 08:30 Urine Catheter - Catheter Urine Culture - Final Klebsiella oxytoca Physical Exam Narrative Bilateral hand edema. Dressing with 2 drains. Incisional VAC removed, managed by plastic. Neuroexam?unable to test as patient did not follow commands this date. Moves extremities. Const no apparent distress Assessment & Plan Assessment/Plan (1) Status post cervical spinal fusion: PLAN: Plan Patient is now 3-week status post C3-T1 fusion in 1 week status post hematoma evacuation. 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 Nephrology on board, creatinine back to baseline. ID on consult for deep wound culture showing rare Enterobacter, cefepime for now. Plastic surgery, appreciate their management of drains and wound VAC. Peg tube placed, patient tolerating. Collar on at all times. CT from last week shows hardware in good position. Will continue to follow
--- NOTE | 2024-06-27 14:39 | NURSING ---
This RN Stripped 2- YEHUDA drains at 1030 this morning and at 1430 this afternoon. Will do again this evening.
--- NOTE | 2024-06-27 15:27 | PN.HOSP_ITS ---
Reason for Visit Reason for Visit: Diagnoses Hypothyroidism, unspecified (06/04/24) Type 2 diabetes mellitus with hyperglycemia (06/04/24) Unspecified protein-calorie malnutrition (06/04/24) Obesity, unspecified (06/04/24) Hyperlipidemia, unspecified (06/04/24) Other specified diseases of spinal cord (06/04/24) Disease of spinal cord, unspecified (06/04/24) Essential (primary) hypertension (06/04/24) Cerebral infarction, unspecified (06/04/24) Acute respiratory failure with hypoxia (06/04/24) Gastrointestinal hemorrhage, unspecified (06/04/24) Unspecified osteoarthritis, unspecified site (06/04/24) Acute kidney failure, unspecified (06/04/24) Dysphagia, unspecified (06/04/24) Other injury of unspecified body region, initial encounter (06/04/24) Arthrodesis status (06/04/24) Subjective Subjective Patient was seen and examined today, I had a brief conversation with one of the patient's sons today, he states he is not the 1 to make decisions concerning his father. He questioned if his father was going to be able to recover from his current medical condition and I told him I was not sure he would but because of his strokes, it will probably take more time for him to determine whether his dad is going to recover. Objective Data Objective Data Vital Signs: Vital Signs Temp Pulse Resp BP Pulse Ox O2 Del Method O2 Flow Rate 98.3 F 75 16 111/53 L 98 Room Air 1 06/27/24 14:13 06/27/24 14:13 06/27/24 14:13 06/27/24 14:13 06/27/24 14:13 06/27/24 14:13 06/25/24 10:12 FiO2 30 06/25/24 10:12 Oxygen Flow Rate (L/min) 1 Oxygen Delivery Method Room Air Weight: 106.7 kg Body Mass Index (BMI) 36.8 Intake & Output: Intake and Output for Last 24 Hours 06/25/24 06/26/24 06/27/24 23:59 23:59 23:59 Intake Total 615 / 665 2894.17 / 2894.17 2818 / 2818 Output Total 1510 / 1510 1045 / 1360 1365 / 1365 Balance -895 / -845 1849.17 / 1534.17 1453 / 1453 Medical Nutrition Assessment Dietitian: Malnutrition Criteria Met Start: 06/16/24 10:42 Freq: Status: Active Protocol: Document 06/16/24 10:43 SB (Rec: 06/16/24 10:43 SB [id number]) Nutrition Malnutrition Evidence of Malnutrition Exists Yes Malnutrition (severe): Acute Illness/Injury Evidenced By Suboptimal Energy Intake ( Severe),Weight Loss (Severe) Intake Problem Inadequate Oral Intake Etiology related to mental status Signs/Symptoms as evidenced by NPO status. Status Active Problem Clinical Problem Acute Disease or Injury Related Malnutrition Etiology severe related to inadequate oral intake Signs/Symptoms as evidenced by PO meeting <50 % of estimated nutrition needs x 1 week, 7% unintentional weight loss x 2 weeks, and 2+ pitting edema in L arm. Status Active Problem Altered Nutrient-Related Laboratory Values Etiology related to endocrine dysfunction/diabetes Signs/Symptoms as evidenced by A1C 11% and glucose 254 Status Active Problem Recommendation Dietitian Recommendations/Changes Recommend advanced diet as tolerated to liberal regular diet d/t signs and symptoms of malnutrition, per LIBRARY SCIENCE PROFESSOR consistency/texture recommendations. Will d/c glucerna shake d/t NPO. Recommend initiating nutrition support in 24-48 hours if pt is still NPO. If nutrition support is initiated recommend Jevity 1. 5Cal goal rate 50ml/hr with 130ml flushes every 4 hours to provide 1800 calories, 76g protein, and 1692ml total fluid/day. Wound start at 10ml /hr d/t risk of refeeding syndrome and increase by 10ml every 8-12 hours as tolerated until goal rate is achieved. Will monitor weight, as available. Reviewed and approved by Jeanna Seals RDN, MANISHA. Lab / Micro Data 06/27/24 09:11 06/25/24 06:04 Labs: Laboratory Results - last 24 hr 06/26/24 13:07: POC Glucose 151 H 06/26/24 17:59: POC Glucose 91 06/26/24 20:42: POC Glucose 102 06/26/24 23:45: POC Glucose 147 H 06/27/24 05:22: POC Glucose 108 H 06/27/24 09:11: WBC 10.8, RBC 2.61 L, Hgb 7.7 L, Hct 25.3 L, MCV 96.9 H, MCH 29.5, MCHC 30.4 L, RDW Std Deviation 71.7 H, RDW Coeff of Tyesha 20.3 H, Plt Count 220, MPV 10.3, Immature Gran % (Auto) 1.000 H, Neut % (Auto) 74.2 H, Lymph % (Auto) 12.7 L, Mcmullen % (Auto) 10.1 H, Eos % (Auto) 1.8, Baso % (Auto) 0.2, A bsolute Neuts (auto) 8.0 H, Absolute Lymphs (auto) 1.38, Nucleated RBC % 0.2, Anisocytosis 1+ 06/27/24 10:59: POC Glucose 193 H Micro: Microbiology 06/21/24 09:25 Urine, Random Urine Culture - Final Culture exhibits no growth. 06/17/24 12:51 Wound - Neck Gram Stain - Final 06/17/24 12:51 Wound - Neck Wound Culture - Final Enterobacter cloacae complex 06/17/24 12:51 Wound - Neck Anaerobic Culture - Final No anaerobic bacteria isolated. 06/12/24 08:30 Blood Culture (Wb) - Anticubital Right Blood Culture - Final No growth in 5 days. 06/11/24 08:30 Urine Catheter - Catheter Urine Culture - Final Klebsiella oxytoca Physical Exam Narrative alert and no apparent distress Constitutional Narrative: Patient response to simple questions appropriately General Appearance: cooperative, well kempt and well developed Orientation / Consciousness: awake, oriented to person, oriented to place and oriented to time HEENT normocephalic, head/scalp atraumatic and moist oral mucous membranes Eyes PERRL, EOMs intact bilaterally and conjunctivae normal Neck supple, no JVD, thyroid normal and no carotid bruits General: trachea midline Resp normal respiratory effort, no retractions, no use of accessory muscles and clear to auscultation bilaterally Auscultation: Negative for rales, rhonchi or wheezes Cardio regular rate, regular rhythm, S1 normal heart sound, S2 normal heart sound, no murmurs, no rub and no gallops GI PEG tube was in place Extremity no clubbing, cyanosis or edema Skin no rashes or lesions noted General Skin Exam: no breakdown Neuro CN's II-XII intact bilaterally, moves all extremities and no focal motor deficits Sensorium / Orientation: awake, alert, oriented to person and oriented to place Speech: speech normal Psych affect normal Assessment & Plan Assessment/Plan (1) GI bleed: (2) Acute hypoxemic respiratory failure: (3) Cervical myelopathy: PLAN: Plan 1. Acute hypoxic respiratory failure secondary to bilateral pulmonary emboli- due to the patient's bleeding duodenal ulcers, I have elected to restart the patient's anticoagulant tonight, currently is on room air #2 acute CVA with blindness-patient will remain on high intensity statin at this time #3 acute metabolic encephalopathy with oropharyngeal dysphagia-etiology unclear, patient is able to respond to simple questions but does not carry on a conversation with this examiner #4 status post C3-T1 fusion with cellulitis-ID saw the patient today and has elected to continue his cefepime #5 acute protein caloric malnutrition-related to inadequate oral intake as evidenced by p.o. meeting less than 50% of estimated nutritional needs x 1 week, 7% unintentional weight loss x 2 weeks-patient is currently receiving tube feedings, nutritional services participating in the patient's care #6 anemia-likely acute in nature, secondary to bleeding duodenal ulcers- patient's hemoglobin remains stable at this time #7 acute kidney injury-patient's creatinine is improving, nephrology is participating in his care #8 sepsis secondary to Klebsiella urinary tract infection-resolved at this time #9 bleeding duodenal ulcers-patient's hemoglobin remains stable at this time #10 pulmonary embolism-during this hospitalization, patient remains on Lovenox Total clinical time spent by myself addressing the patient's medical issues, reviewing all of his data, and collaborating with patient's care team: 35 minutes Charges/Coding Visit Charges Inpatient E&M: 69293 Subs Hosp L2
[2024-06-27] MEDS: oxyCODONE 5 MG Tablet PO (18:46)
[2024-06-27 19:21] LABS: Bedside Glucose 203 mg/dL (74-106)
[2024-06-27 21:48] VITALS: BP 123/56; PULSE 78; RESP 20; TEMP 36.6; O2SAT 96
[2024-06-27] MEDS: 0.9% Saline Lock 10 ML Syringe IV (21:52)
[2024-06-27] MEDS: Atorvastatin Calcium 40 MG Tablet PO (22:32)
[2024-06-27] MEDS: Insulin Glargine-YFGN 100 UNIT/ML Pen 25 UNIT SC (22:51)
[2024-06-27 23:18] LABS: Bedside Glucose 166 mg/dL (74-106)
[2024-06-28 03:18] VITALS: BMI 36.8
[2024-06-28 03:41] VITALS: BP 108/76; PULSE 94; RESP 18; TEMP 36.4; O2SAT 93
[2024-06-28 04:15] VITALS: BMI 37.7
[2024-06-28] MEDS: Levothyroxine 75 MCG Tablet NG (05:12)
[2024-06-28] MEDS: Acetaminophen 500 MG Tablet 1000 MG NG ×3 (05:12→21:16)
[2024-06-28] MEDS: Insulin Lispro 100 UNIT/ML INSULN.PEN SC ×2 (05:53→16:57)
[2024-06-28] MEDS: Insulin Lispro 100 UNIT/ML INSULN.PEN 10 UNIT SC ×2 (05:53→16:57)
[2024-06-28] MEDS: oxyCODONE 5 MG Tablet PO (06:16)
[2024-06-28 06:24] LABS: Bedside Glucose 210 mg/dL (74-106)
--- NOTE | 2024-06-28 07:45 | PN.SURG_ITS ---
Subjective Subjective Intermittent alertness and intermittently following commands. Pain appears to be controlled. G tube functioning. Patient getting nourishment. Family has been visiting him. THey're working on SNF dispo. Objective Data Objective Data Vital Signs: Vital Signs Temp Pulse Resp BP Pulse Ox O2 Del Method O2 Flow Rate 97.6 F L 94 18 108/76 93 Room Air 1 06/28/24 03:41 06/28/24 03:41 06/28/24 03:41 06/28/24 03:41 06/28/24 03:41 06/28/24 03:41 06/25/24 10:12 FiO2 30 06/25/24 10:12 Oxygen Flow Rate (L/min) 1 Oxygen Delivery Method Room Air Weight: 240 lb 15.444 oz Body Mass Index (BMI) 37.7 Intake & Output: Intake and Output for Last 24 Hours 06/26/24 06/27/24 06/28/24 23:59 23:59 23:59 Intake Total 2894.17 / 2894.17 3753 / 3753 Output Total 1045 / 1360 2272 / 2272 412 / 412 Balance 1849.17 / 1534.17 1481 / 1481 -412 / -412 Medical Nutrition Assessment Dietitian: Malnutrition Criteria Met Start: 06/16/24 10:42 Freq: Status: Active Protocol: Document 06/16/24 10:43 SB (Rec: 06/16/24 10:43 SB [id number]) Nutrition Malnutrition Evidence of Malnutrition Exists Yes Malnutrition (severe): Acute Illness/Injury Evidenced By Suboptimal Energy Intake ( Severe),Weight Loss (Severe) Intake Problem Inadequate Oral Intake Etiology related to mental status Signs/Symptoms as evidenced by NPO status. Status Active Problem Clinical Problem Acute Disease or Injury Related Malnutrition Etiology severe related to inadequate oral intake Signs/Symptoms as evidenced by PO meeting <50 % of estimated nutrition needs x 1 week, 7% unintentional weight loss x 2 weeks, and 2+ pitting edema in L arm. Status Active Problem Altered Nutrient-Related Laboratory Values Etiology related to endocrine dysfunction/diabetes Signs/Symptoms as evidenced by A1C 11% and glucose 254 Status Active Problem Recommendation Dietitian Recommendations/Changes Recommend advanced diet as tolerated to liberal regular diet d/t signs and symptoms of malnutrition, per FOOT ORTHOPEDIST consistency/texture recommendations. Will d/c glucerna shake d/t NPO. Recommend initiating nutrition support in 24-48 hours if pt is still NPO. If nutrition support is initiated recommend Jevity 1. 5Cal goal rate 50ml/hr with 130ml flushes every 4 hours to provide 1800 calories, 76g protein, and 1692ml total fluid/day. Wound start at 10ml /hr d/t risk of refeeding syndrome and increase by 10ml every 8-12 hours as tolerated until goal rate is achieved. Will monitor weight, as available. Reviewed and approved by Jeanna Seals RDN, MANISHA. Lab / Micro Data 06/27/24 09:11 06/25/24 06:04 Labs: Laboratory Results - last 24 hr 06/27/24 09:11: WBC 10.8, RBC 2.61 L, Hgb 7.7 L, Hct 25.3 L, MCV 96.9 H, MCH 29.5, MCHC 30.4 L, RDW Std Deviation 71.7 H, RDW Coeff of Tyesha 20.3 H, Plt Count 220, MPV 10.3, Immature Gran % (Auto) 1.000 H, Neut % (Auto) 74.2 H, Lymph % (Auto) 12.7 L, [place] % (Auto) 10.1 H, Eos % (Auto) 1.8, Baso % (Auto) 0.2, A bsolute Neuts (auto) 8.0 H, Absolute Lymphs (auto) 1.38, Nucleated RBC % 0.2, Anisocytosis 1+ 06/27/24 10:59: POC Glucose 193 H 06/27/24 18:43: POC Glucose 203 H 06/27/24 22:48: POC Glucose 166 H 06/28/24 05:50: POC Glucose 210 H Micro: Microbiology 06/21/24 09:25 Urine, Random Urine Culture - Final Culture exhibits no growth. 06/17/24 12:51 Wound - Neck Gram Stain - Final 06/17/24 12:51 Wound - Neck Wound Culture - Final Enterobacter cloacae complex 06/17/24 12:51 Wound - Neck Anaerobic Culture - Final No anaerobic bacteria isolated. 06/12/24 08:30 Blood Culture (Wb) - Anticubital Right Blood Culture - Final No growth in 5 days. 06/11/24 08:30 Urine Catheter - Catheter Urine Culture - Final Klebsiella oxytoca Physical Exam Narrative NECK C collar removed and replaced for exam. No neck hematoma. Drains are SS with minimal output, no clot - stip well. Incision C/D/I, no drainage/induration. Drain 2 was removed today. 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 Assessment & Plan Assessment/Plan (1) Status post cervical spinal fusion: PLAN: Spine incision/plastics muscle flap closure healing well. I will likely remove last drain tomorrow (they've been consistently less than 30). Nylon sutures stay for 4 weeks. PSU to follow Charges/Coding Procedures Integumentary [id number]: [id number] Global Visit
[2024-06-28 07:47] VITALS: BP 114/62; PULSE 87; RESP 18; TEMP 36.3; O2SAT 97
[2024-06-28 08:54] VITALS: BMI 37.7
[2024-06-28] MEDS: Enoxaparin 100 MG/ML Syringe SC ×2 (09:36→21:16)
[2024-06-28] MEDS: Jevity 1.5 1,000 ML 50 ML GT (09:36)
[2024-06-28] MEDS: Senna/Docusate Sodium 1 Tablet 2 TABLET NG ×2 (09:37→21:16)
[2024-06-28] MEDS: Midodrine HCl 5 MG Tablet 10 MG NG ×3 (09:37→16:49)
[2024-06-28] MEDS: Menthol/Lanolin/Calamine/Znox 113 GM Tube 1 APPLIC TOPICAL ×2 (09:37→21:14)
[2024-06-28] MEDS: Cefepime HCl 1 GM in 0.9% Normal Saline (50mL MB+) 50 ML IV ×2 (09:43→21:16)
[2024-06-28] MEDS: Pantoprazole Sodium 40 MG in 0.9% Normal Saline (100mL MB+) 100 ML 330 MG IV ×2 (09:44→22:23)
--- NOTE | 2024-06-28 09:53 | CASEMGMT ---
Addendum entered by Judy Duran 06/28/24 12:14: [facility] accepted. updated. Judy Duran DC Planning Asst. Addendum entered by Judy Duran 06/28/24 11:47: [facility] has declined. updated. Judy Duran DC Planning Asst. Addendum entered by Judy Duran 06/28/24 10:07: [facility] has accepted. Judy Duran DC Planning Asst. Original Note: Discharge Planning Referral sent to [facility], [facility], and [facility]. Judy Duran DC Planning Asst.
--- NOTE | 2024-06-28 09:59 | CASEMGMT ---
Addendum entered by Carito Ovalles 06/28/24 14:35: [facility] both accepted pt, [facility] declined. SW called obdulio Willson, informed him that [facility] and [facility] accepted and [facility] declined. Son has visits scheduled tomorrow at 10 and 12 for [facility] and [facility], does not want to make a decision until he has visited the facilities. SW gave him the SW on the weekend, Melba's number to call once he has made a decision. SW sent messages via [employer] to both facilities asking if they would be able to take pt on the weekend. SW awaiting a response. JIHAN Diego Original Note: Social Work SW called obdulio Willson this morning, he gave SW the following choices: 1. [facility]. [facility] 3. [facility]. He states they visited [facility] yesterday, plan to visit [facility] this evening. ROSIO explained we will start the referral process. ROSIO spoke with d/c development and planning engineer Judy, she will start w/referral to [facility]. JIHAN Diego
--- NOTE | 2024-06-28 11:39 | PCM.PN.REN ---
Subjective Subjective Resting in bed, no overnight events Objective Data Objective Data Vital Signs: Vital Signs Temp Pulse Resp BP Pulse Ox O2 Del Method O2 Flow Rate 97.4 F L 87 18 114/62 97 Room Air 1 06/28/24 07:47 06/28/24 07:47 06/28/24 07:47 06/28/24 07:47 06/28/24 07:47 06/28/24 07:47 06/25/24 10:12 FiO2 30 06/25/24 10:12 Oxygen Flow Rate (L/min) 1 Oxygen Delivery Method Room Air Weight: 109.3 kg Body Mass Index (BMI) 37.7 Intake & Output: Intake and Output for Last 24 Hours 06/26/24 06/27/24 06/28/24 23:59 23:59 23:59 Intake Total 2894.17 / 2894.17 3753 / 3753 1160 / 1160 Output Total 1045 / 1360 2272 / 2272 412 / 412 Balance 1849.17 / 1534.17 1481 / 1481 748 / 748 Medical Nutrition Assessment Dietitian: Malnutrition Criteria Met Start: 06/16/24 10:42 Freq: Status: Active Protocol: Document 06/16/24 10:43 SB (Rec: 06/16/24 10:43 SB [id number]) Nutrition Malnutrition Evidence of Malnutrition Exists Yes Malnutrition (severe): Acute Illness/Injury Evidenced By Suboptimal Energy Intake ( Severe),Weight Loss (Severe) Intake Problem Inadequate Oral Intake Etiology related to mental status Signs/Symptoms as evidenced by NPO status. Status Active Problem Clinical Problem Acute Disease or Injury Related Malnutrition Etiology severe related to inadequate oral intake Signs/Symptoms as evidenced by PO meeting <50 % of estimated nutrition needs x 1 week, 7% unintentional weight loss x 2 weeks, and 2+ pitting edema in L arm. Status Active Problem Altered Nutrient-Related Laboratory Values Etiology related to endocrine dysfunction/diabetes Signs/Symptoms as evidenced by A1C 11% and glucose 254 Status Active Problem Recommendation Dietitian Recommendations/Changes Recommend advanced diet as tolerated to liberal regular diet d/t signs and symptoms of malnutrition, per TOBACCO SIZER consistency/texture recommendations. Will d/c glucerna shake d/t NPO. Recommend initiating nutrition support in 24-48 hours if pt is still NPO. If nutrition support is initiated recommend Jevity 1. 5Cal goal rate 50ml/hr with 130ml flushes every 4 hours to provide 1800 calories, 76g protein, and 1692ml total fluid/day. Wound start at 10ml /hr d/t risk of refeeding syndrome and increase by 10ml every 8-12 hours as tolerated until goal rate is achieved. Will monitor weight, as available. Reviewed and approved by Jeanna Seals, EMPERATRIZ, MANISHA. Lab / Micro Data 06/27/24 09:11 06/25/24 06:04 Labs: Laboratory Results - last 24 hr 06/27/24 18:43: POC Glucose 203 H 06/27/24 22:48: POC Glucose 166 H 06/28/24 05:50: POC Glucose 210 H Micro: Microbiology 06/21/24 09:25 Urine, Random Urine Culture - Final Culture exhibits no growth. 06/17/24 12:51 Wound - Neck Gram Stain - Final 06/17/24 12:51 Wound - Neck Wound Culture - Final Enterobacter cloacae complex 06/17/24 12:51 Wound - Neck Anaerobic Culture - Final No anaerobic bacteria isolated. 06/12/24 08:30 Blood Culture (Wb) - Anticubital Right Blood Culture - Final No growth in 5 days. 06/11/24 08:30 Urine Catheter - Catheter Urine Culture - Final Klebsiella oxytoca Physical Exam Narrative Alert awake no obvious distress s1s2 no murmurs lungs clear abdomen soft no edema huber Assessment & Plan Assessment/Plan (1) Acute kidney injury: PLAN: - CKD 3a. baseline cr appears to be 1.5 - KELVIN prerenal with fluctuating SCr levels this hospitalization. Last peak of SCr was 06/21, SCr peaked up to 3.13. Last labs form 06/25 SCr 1.53, near baseline. huber indwelling, obstruction unlikely. Has G-tube with tube feedings. - disposition; d/c plans to ECF. We will arrange for hospital follow-up.
[2024-06-28 12:01] VITALS: BP 122/55; PULSE 94; RESP 18; TEMP 36.3; O2SAT 94
--- NOTE | 2024-06-28 12:26 | PCM.PN.HOSP ---
Reason for Visit Reason for Visit: Diagnoses Hypothyroidism, unspecified (06/04/24) Type 2 diabetes mellitus with hyperglycemia (06/04/24) Unspecified protein-calorie malnutrition (06/04/24) Obesity, unspecified (06/04/24) Hyperlipidemia, unspecified (06/04/24) Other specified diseases of spinal cord (06/04/24) Disease of spinal cord, unspecified (06/04/24) Essential (primary) hypertension (06/04/24) Cerebral infarction, unspecified (06/04/24) Acute respiratory failure with hypoxia (06/04/24) Gastrointestinal hemorrhage, unspecified (06/04/24) Unspecified osteoarthritis, unspecified site (06/04/24) Acute kidney failure, unspecified (06/04/24) Dysphagia, unspecified (06/04/24) Other injury of unspecified body region, initial encounter (06/04/24) Arthrodesis status (06/04/24) Subjective Subjective Patient was seen and examined today, he remains medically stable, I talked briefly with plastic surgery about his care. Patient's son called into provide his choice of nursing homes he prefers his father to go into, we will likely not hear of any approval from these nursing homes until early next week. Objective Data Objective Data Vital Signs: Vital Signs Temp Pulse Resp BP Pulse Ox O2 Del Method O2 Flow Rate 97.4 F L 94 18 122/55 H 94 Room Air 1 06/28/24 12:01 06/28/24 12:01 06/28/24 12:01 06/28/24 12:01 06/28/24 12:06/28/24 12:01 06/25/24 10:12 FiO2 30 06/25/24 10:12 Oxygen Flow Rate (L/min) 1 Oxygen Delivery Method Room Air Weight: 109.3 kg Body Mass Index (BMI) 37.7 Intake & Output: Intake and Output for Last 24 Hours 06/26/24 06/27/24 06/28/24 23:59 23:59 23:59 Intake Total 2894.17 / 2894.17 3753 / 3753 1160 / 1160 Output Total 1045 / 1360 2272 / 2272 612 / 612 Balance 1849.17 / 1534.17 1481 / 1481 548 / 548 Medical Nutrition Assessment Dietitian: Malnutrition Criteria Met Start: 06/16/24 10:42 Freq: Status: Active Protocol: Document 06/16/24 10:43 SB (Rec: 06/16/24 10:43 SB [id number]) Nutrition Malnutrition Evidence of Malnutrition Exists Yes Malnutrition (severe): Acute Illness/Injury Evidenced By Suboptimal Energy Intake ( Severe),Weight Loss (Severe) Intake Problem Inadequate Oral Intake Etiology related to mental status Signs/Symptoms as evidenced by NPO status. Status Active Problem Clinical Problem Acute Disease or Injury Related Malnutrition Etiology severe related to inadequate oral intake Signs/Symptoms as evidenced by PO meeting <50 % of estimated nutrition needs x 1 week, 7% unintentional weight loss x 2 weeks, and 2+ pitting edema in L arm. Status Active Problem Altered Nutrient-Related Laboratory Values Etiology related to endocrine dysfunction/diabetes Signs/Symptoms as evidenced by A1C 11% and glucose 254 Status Active Problem Recommendation Dietitian Recommendations/Changes Recommend advanced diet as tolerated to liberal regular diet d/t signs and symptoms of malnutrition, per AUTOMATIC MACHINES SUPERVISOR consistency/texture recommendations. Will d/c glucerna shake d/t NPO. Recommend initiating nutrition support in 24-48 hours if pt is still NPO. If nutrition support is initiated recommend Jevity 1. 5Cal goal rate 50ml/hr with 130ml flushes every 4 hours to provide 1800 calories, 76g protein, and 1692ml total fluid/day. Wound start at 10ml /hr d/t risk of refeeding syndrome and increase by 10ml every 8-12 hours as tolerated until goal rate is achieved. Will monitor weight, as available. Reviewed and approved by Jeanna Seals RDN, MANISHA. Lab / Micro Data 06/27/24 09:11 06/25/24 06:04 Labs: Laboratory Results - last 24 hr 06/27/24 18:43: POC Glucose 203 H 06/27/24 22:48: POC Glucose 166 H 06/28/24 05:50: POC Glucose 210 H Micro: Microbiology 06/21/24 09:25 Urine, Random Urine Culture - Final Culture exhibits no growth. 06/17/24 12:51 Wound - Neck Gram Stain - Final 06/17/24 12:51 Wound - Neck Wound Culture - Final Enterobacter cloacae complex 06/17/24 12:51 Wound - Neck Anaerobic Culture - Final No anaerobic bacteria isolated. 06/12/24 08:30 Blood Culture (Wb) - Anticubital Right Blood Culture - Final No growth in 5 days. 06/11/24 08:30 Urine Catheter - Catheter Urine Culture - Final Klebsiella oxytoca Physical Exam Narrative alert and no apparent distress, unable to carry on a conversation Constitutional Narrative: Patient response to simple questions appropriately at times General Appearance: cooperative, well kempt and well developed Orientation / Consciousness: awake, oriented to person HEENT normocephalic, head/scalp atraumatic and moist oral mucous membranes Eyes PERRL, EOMs intact bilaterally and conjunctivae normal Neck supple, no JVD, thyroid normal and no carotid bruits General: trachea midline Resp normal respiratory effort, no retractions, no use of accessory muscles and clear to auscultation bilaterally Auscultation: Negative for rales, rhonchi or wheezes Cardio regular rate, regular rhythm, S1 normal heart sound, S2 normal heart sound, no murmurs, no rub and no gallops GI PEG tube in place Extremity no clubbing, cyanosis or edema Skin no rashes or lesions noted General Skin Exam: no breakdown Neuro CN's II-XII intact bilaterally Sensorium / Orientation: awake, alert, oriented to person Speech: Is not able to carry on a conversation Psych affect flat Assessment & Plan Assessment/Plan (1) Stroke/cerebrovascular accident: QUALIFIERS: CVA mechanism: unspecified Qualified Code(s): I63.9 - Cerebral infarction, unspecified (2) GI bleed: (3) Acute hypoxemic respiratory failure: (4) Cervical myelopathy: PLAN: Plan 1. Acute hypoxic respiratory failure secondary to bilateral pulmonary emboli-due to the patient's bleeding duodenal ulcers, I have elected to restart the patient's anticoagulant tonight, currently is on room air #2 acute CVA with blindness-patient will remain on high intensity statin at this time #3 acute metabolic encephalopathy with oropharyngeal dysphagia-etiology unclear, patient is able to respond to simple questions at times but does not carry on a conversation with this examiner #4 status post C3-T1 fusion with cellulitis-patient will complete his antibiotics tomorrow #5 acute protein caloric malnutrition-related to inadequate oral intake as evidenced by p.o. meeting less than 50% of estimated nutritional needs x 1 week, 7% unintentional weight loss x 2 weeks-patient is currently receiving tube feedings, nutritional services participating in the patient's care #6 anemia-likely acute in nature, secondary to bleeding duodenal ulcers-patient's hemoglobin remains stable at this time #7 acute kidney injury-patient's creatinine is improving, nephrology is participating in his care #8 sepsis secondary to Klebsiella urinary tract infection-resolved at this time #9 bleeding duodenal ulcers-patient's hemoglobin remains stable at this time #10 pulmonary embolism-during this hospitalization, patient remains on Lovenox, I will transition the patient to Eliquis when discharged Total clinical time spent by myself addressing the patient's medical issues, reviewing all of his data, and collaborating with patient's care team: 35 minutes Charges/Coding Visit Charges Inpatient E&M: 23963 Subs Hosp L2
[2024-06-28] MEDS: oxyCODONE 5 MG Tablet 10 MG PO ×2 (12:43→21:17)
[2024-06-28 12:57] LABS: Bedside Glucose 105 mg/dL (74-106)
--- NOTE | 2024-06-28 14:37 | CASEMGMT ---
Social Work Both [facility] and [facility] can take pt on the weekend should family decide they would like pt to go to either of the facilities. The weekend SW will follow up. JIHAN Diego
--- NOTE | 2024-06-28 15:30 | PCM.PN.ORT ---
Subjective Subjective Seen with Dr. Hernandez. Patient states that he is in pain today but does not specify any certain location. Does not follow simple commands. One drain removed by plastic. PEG tube placement 06/25, tolerating well. Moves all 4 extremities. Objective Data Objective Data Vital Signs: Vital Signs Temp Pulse Resp BP Pulse Ox O2 Del Method O2 Flow Rate 97.4 F L 94 18 122/55 H 94 Room Air 1 06/28/24 12:06/28/24 12:06/28/24 12:06/28/24 12:06/28/24 12:06/28/24 12:01 06/25/24 10:12 FiO2 30 06/25/24 10:12 Oxygen Flow Rate (L/min) 1 Oxygen Delivery Method Room Air Weight: 240 lb 15.444 oz Body Mass Index (BMI) 37.7 Intake & Output: Intake and Output for Last 24 Hours 06/26/24 06/27/24 06/28/24 23:59 23:59 23:59 Intake Total 2894.17 / 2894.17 3753 / 3753 1160 / 1160 Output Total 1045 / 1360 2272 / 2272 612 / 612 Balance 1849.17 / 1534.17 1481 / 1481 548 / 548 Medical Nutrition Assessment Dietitian: Malnutrition Criteria Met Start: 06/16/24 10:42 Freq: Status: Active Protocol: Document 06/16/24 10:43 SB (Rec: 06/16/24 10:43 SB [id number]) Nutrition Malnutrition Evidence of Malnutrition Exists Yes Malnutrition (severe): Acute Illness/Injury Evidenced By Suboptimal Energy Intake ( Severe),Weight Loss (Severe) Intake Problem Inadequate Oral Intake Etiology related to mental status Signs/Symptoms as evidenced by NPO status. Status Active Problem Clinical Problem Acute Disease or Injury Related Malnutrition Etiology severe related to inadequate oral intake Signs/Symptoms as evidenced by PO meeting <50 % of estimated nutrition needs x 1 week, 7% unintentional weight loss x 2 weeks, and 2+ pitting edema in L arm. Status Active Problem Altered Nutrient-Related Laboratory Values Etiology related to endocrine dysfunction/diabetes Signs/Symptoms as evidenced by A1C 11% and glucose 254 Status Active Problem Recommendation Dietitian Recommendations/Changes Recommend advanced diet as tolerated to liberal regular diet d/t signs and symptoms of malnutrition, per EDUCATIONAL RECRUITER consistency/texture recommendations. Will d/c glucerna shake d/t NPO. Recommend initiating nutrition support in 24-48 hours if pt is still NPO. If nutrition support is initiated recommend Jevity 1. 5Cal goal rate 50ml/hr with 130ml flushes every 4 hours to provide 1800 calories, 76g protein, and 1692ml total fluid/day. Wound start at 10ml /hr d/t risk of refeeding syndrome and increase by 10ml every 8-12 hours as tolerated until goal rate is achieved. Will monitor weight, as available. Reviewed and approved by Jeanna Seals RDN, MANISHA. Lab / Micro Data 06/27/24 09:11 06/25/24 06:04 Labs: Laboratory Results - last 24 hr 06/27/24 18:43: POC Glucose 203 H 06/27/24 22:48: POC Glucose 166 H 06/28/24 05:50: POC Glucose 210 H 06/28/24 11:57: POC Glucose 105 Micro: Microbiology 06/21/24 09:25 Urine, Random Urine Culture - Final Culture exhibits no growth. 06/17/24 12:51 Wound - Neck Gram Stain - Final 06/17/24 12:51 Wound - Neck Wound Culture - Final Enterobacter cloacae complex 06/17/24 12:51 Wound - Neck Anaerobic Culture - Final No anaerobic bacteria isolated. 06/12/24 08:30 Blood Culture (Wb) - Anticubital Right Blood Culture - Final No growth in 5 days. 06/11/24 08:30 Urine Catheter - Catheter Urine Culture - Final Klebsiella oxytoca Physical Exam Narrative Bilateral hand edema. Incisional VAC removed, managed by plastic. Neuroexam?unable to test as patient did not follow commands this date. Moves extremities. Const no apparent distress Assessment & Plan Assessment/Plan (1) Status post cervical spinal fusion: PLAN: Plan Patient is now 3-week status post C3-T1 fusion in 1 week status post hematoma evacuation. 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 Nephrology on board, creatinine back to baseline. ID on consult for deep wound culture showing rare Enterobacter, cefepime for now. Plastic surgery, appreciate their management of drains and wound VAC. Peg tube placed, patient tolerating. Collar on at all times. CT from last week shows hardware in good position. Will continue to follow.
[2024-06-28 16:46] VITALS: BP 126/61; PULSE 92; RESP 18; TEMP 36.8; O2SAT 94
[2024-06-28 17:16] LABS: Bedside Glucose 172 mg/dL (74-106)
[2024-06-28 21:12] VITALS: BP 111/59; PULSE 85; RESP 20; TEMP 37.2; O2SAT 95
[2024-06-28] MEDS: Atorvastatin Calcium 40 MG Tablet PO (21:16)
[2024-06-28] MEDS: Insulin Glargine-YFGN 100 UNIT/ML Pen 25 UNIT SC (22:24)
[2024-06-28 22:38] LABS: Bedside Glucose 112 mg/dL (74-106)
[2024-06-29] MEDS: Insulin Lispro 100 UNIT/ML INSULN.PEN 10 UNIT SC ×2 (00:27→12:21)
[2024-06-29 00:49] LABS: Bedside Glucose 148 mg/dL (74-106)
[2024-06-29 03:46] VITALS: BP 112/53; PULSE 85; RESP 18; TEMP 37.1; O2SAT 95
[2024-06-29] MEDS: Acetaminophen 500 MG Tablet 1000 MG NG ×2 (06:04→15:09)
[2024-06-29] MEDS: Levothyroxine 75 MCG Tablet NG (06:04)
[2024-06-29] MEDS: Jevity 1.5 1,000 ML 50 ML GT (06:12)
[2024-06-29 06:22] LABS: Bedside Glucose 115 mg/dL (74-106)
--- NOTE | 2024-06-29 07:53 | PN.SURG_ITS ---
Subjective Subjective No acute events overnight per nursing. Objective Data Objective Data Vital Signs: Vital Signs Temp Pulse Resp BP Pulse Ox O2 Del Method O2 Flow Rate 98.8 F 85 18 112/53 L 95 Room Air 1 06/29/24 03:46 06/29/24 03:46 06/29/24 03:46 06/29/24 03:46 06/29/24 03:46 06/29/24 03:46 06/25/24 10:12 FiO2 30 06/25/24 10:12 Oxygen Flow Rate (L/min) 1 Oxygen Delivery Method Room Air Weight: 240 lb 15.444 oz Body Mass Index (BMI) 37.7 Intake & Output: Intake and Output for Last 24 Hours 06/27/24 06/28/24 06/29/24 23:59 23:59 23:59 Intake Total 3753 / 3753 1320 / 1320 1000 / 1000 Output Total 2272 / 2272 1862 / 1862 200 / 200 Balance 1481 / 1481 -542 / -542 800 / 800 Medical Nutrition Assessment Dietitian: Malnutrition Criteria Met Start: 06/16/24 10:42 Freq: Status: Active Protocol: Document 06/16/24 10:43 SB (Rec: 06/16/24 10:43 SB [id number]) Nutrition Malnutrition Evidence of Malnutrition Exists Yes Malnutrition (severe): Acute Illness/Injury Evidenced By Suboptimal Energy Intake ( Severe),Weight Loss (Severe) Intake Problem Inadequate Oral Intake Etiology related to mental status Signs/Symptoms as evidenced by NPO status. Status Active Problem Clinical Problem Acute Disease or Injury Related Malnutrition Etiology severe related to inadequate oral intake Signs/Symptoms as evidenced by PO meeting <50 % of estimated nutrition needs x 1 week, 7% unintentional weight loss x 2 weeks, and 2+ pitting edema in L arm. Status Active Problem Altered Nutrient-Related Laboratory Values Etiology related to endocrine dysfunction/diabetes Signs/Symptoms as evidenced by A1C 11% and glucose 254 Status Active Problem Recommendation Dietitian Recommendations/Changes Recommend advanced diet as tolerated to liberal regular diet d/t signs and symptoms of malnutrition, per ARMATURE BANDER consistency/texture recommendations. Will d/c glucerna shake d/t NPO. Recommend initiating nutrition support in 24-48 hours if pt is still NPO. If nutrition support is initiated recommend Jevity 1. 5Cal goal rate 50ml/hr with 130ml flushes every 4 hours to provide 1800 calories, 76g protein, and 1692ml total fluid/day. Wound start at 10ml /hr d/t risk of refeeding syndrome and increase by 10ml every 8-12 hours as tolerated until goal rate is achieved. Will monitor weight, as available. Reviewed and approved by Jeanna Seals RDN, MANISHA. Lab / Micro Data 06/27/24 09:11 06/25/24 06:04 Labs: Laboratory Results - last 24 hr 06/28/24 11:57: POC Glucose 105 06/28/24 16:53: POC Glucose 172 H 06/28/24 22:18: POC Glucose 112 H 06/29/24 00:26: POC Glucose 148 H 06/29/24 06:01: POC Glucose 115 H Micro: Microbiology 06/21/24 09:25 Urine, Random Urine Culture - Final Culture exhibits no growth. 06/17/24 12:51 Wound - Neck Gram Stain - Final 06/17/24 12:51 Wound - Neck Wound Culture - Final Enterobacter cloacae complex 06/17/24 12:51 Wound - Neck Anaerobic Culture - Final No anaerobic bacteria isolated. 06/12/24 08:30 Blood Culture (Wb) - Anticubital Right Blood Culture - Final No growth in 5 days. 06/11/24 08:30 Urine Catheter - Catheter Urine Culture - Final Klebsiella oxytoca Physical Exam Narrative NECK C collar removed and replaced for exam. No neck hematoma. Drains are SS with minimal output (10 cc past 24 hours), no clot - stip well. Incision C/D/I, no drainage/induration. Drain 1 was removed today. 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 Assessment & Plan Assessment/Plan (1) Status post cervical spinal fusion: PLAN: Spine incision/plastics muscle flap closure healing well. Drains all out. XF daily to incision Nylon sutures stay for 4 weeks. [facility] to follow Will follow up as outpatient to remove sutures
[2024-06-29 08:26] VITALS: BP 113/55; PULSE 79; RESP 18; TEMP 37.2; O2SAT 95
[2024-06-29] MEDS: Midodrine HCl 5 MG Tablet 10 MG NG ×2 (08:40→12:21)
[2024-06-29] MEDS: Pantoprazole Sodium 40 MG in 0.9% Normal Saline (100mL MB+) 100 ML 330 MG IV (10:01)
[2024-06-29] MEDS: 0.9% Saline Lock 10 ML Syringe IV (10:02)
[2024-06-29] MEDS: Enoxaparin 100 MG/ML Syringe SC (10:05)
[2024-06-29] MEDS: Menthol/Lanolin/Calamine/Znox 113 GM Tube 1 APPLIC TOPICAL (10:06)
[2024-06-29] MEDS: Senna/Docusate Sodium 1 Tablet 2 TABLET NG (10:07)
[2024-06-29] MEDS: Cefepime HCl 1 GM in 0.9% Normal Saline (50mL MB+) 50 ML IV (10:39)
[2024-06-29] MEDS: Insulin Lispro 100 UNIT/ML INSULN.PEN SC (12:21)
[2024-06-29 12:32] LABS: Bedside Glucose 170 mg/dL (74-106)
--- NOTE | 2024-06-29 13:52 | CASEMGMT ---
Addendum entered by Melba Alcantara 06/29/24 14:07: Social Work- ROSIO received return call from pt son, Demetris. Demetris reports that [facility] is FOC. ROSIO updated that physician and facility will be notified. ROSIO advised that pt will likely d/c today based on his medical readiness per physician report. Staff to call pt son with d/c time. ROSIO updated physician who reports that he will d/c today. ROSIO completed PAS[facility] and placed on chart with transport and green sheet. ROSIO updated [facility] that pt chose another facility. ROSIO updated [facility] that pt family chose as FOC. Plan: [facility], skilled level of care TERESA Lacey Original Note: Social Work- ROSIO called pt son to verify FOC for discharge planning. SW left a voicemail requesting a return call. TERESA Lacey
--- NOTE | 2024-06-29 14:41 | PCM.TXEXTCAR ---
Diet Diet Order/Speech Therapy: 06/25/24 15:38 Diet: Tube Feeding Tube Feed: Jevity 1.5 at 50 mL/h Routine Orders/Code Status Code Status: DNRCC-A (No intubation) DC O2, CPAP, BIPAP needs PSN CPAP & BiPAP: BiPAP & CPAP Settings per PSN Mode AIRVO 06/06/24 15:34 Bipap Delivery Device Nasal Pillows 06/06/24 15:34 BiPAP Inspiratory Pressure 18 06/05/24 20:00 BiPAP Expiratory Pressure 10 06/05/24 20:00 BiPAP Rate 12 06/05/24 20:00 Fraction of Inspired Oxygen ( 30 06/25/24 10:12 FIO2) Total Flow Rate 40 06/06/24 15:34 Home O2 Discharge instructions: Yes Type of respiratory needs?: BiPAP BiPAP oxygen liters per minute: FiO2 0.3 BiPAP instructions: As above Wound(s) POSTERIOR NECK: Wound Type: Surgical Incision Dressing Change: xeroform coccyx/gluteal folds/ian rectal area excoriation: Wound Type: excoriation coccyx: Wound Type: Pressure Injury MIDDLE ABDOMEN/PEG TUBE SITE: Wound Type: Surgical Incision Therapies Weight Bearing: Weight bearing as tolerated (Transfer training, seated activities, activity tolerance exercises) Physical Therapy: Eval and Treat Occupational Therapy: Eval and Treat Speech Therapy: Eval and Treat Narrative: Cervical collar on at all times until 07/16/2024, okay to remove for a few minutes a day for hygiene Problem/Diagnosis (1) Status post cervical spinal fusion: Status: Acute Code(s): Z98.1 - Arthrodesis status (2) Cervical myelopathy: Status: Acute Code(s): G95.9 - Disease of spinal cord, unspecified Plan 1. Acute hypoxic respiratory failure secondary to bilateral pulmonary emboli-due to the patient's bleeding duodenal ulcers, I have elected to restart the patient's anticoagulant tonight, currently is on room air #2 acute CVA with blindness-patient will remain on high intensity statin at this time #3 acute metabolic encephalopathy with oropharyngeal dysphagia-etiology unclear, patient is able to respond to simple questions at times but does not carry on a conversation with this examiner #4 status post C3-T1 fusion with cellulitis-patient will complete his antibiotics tomorrow #5 acute protein caloric malnutrition-related to inadequate oral intake as evidenced by p.o. meeting less than 50% of estimated nutritional needs x 1 week, 7% unintentional weight loss x 2 weeks-patient is currently receiving tube feedings, nutritional services participating in the patient's care #6 anemia-likely acute in nature, secondary to bleeding duodenal ulcers-patient's hemoglobin remains stable at this time #7 acute kidney injury-patient's creatinine is improving, nephrology is participating in his care #8 sepsis secondary to Klebsiella urinary tract infection-resolved at this time #9 bleeding duodenal ulcers-patient's hemoglobin remains stable at this time #10 pulmonary embolism-during this hospitalization, patient remains on Lovenox, I will transition the patient to Eliquis when discharged Total clinical time spent by myself addressing the patient's medical issues, reviewing all of his data, and collaborating with patient's care team: 35 minutes Allergies/Procedures Done in Hospital Allergies iodine Allergy (Verified 05/28/24 19:28) Swelling Penicillins Adverse Reaction (Mild, Verified 05/28/24 19:28) PT UNSURE OF REACTION Procedures: EGD and - (Evacuation of neck hematoma 06/17/2024; C3-C7 laminectomy, bilateral C6-7 and C7-T1 foraminotomies, C3-T1 posterior instrumented spinal fusion) Type of Care/Length of Stay Estimated LOS: Convalescent Care Less Than 30 days Type of Care Needed: Skilled Rehab Potential: Fair Prognosis: Fair Additional Orders/Day of Discharge H&P will serve as current which was dated: 06/04/24 Day of Discharge: 06/29/24 Dietary and Speech Recommendations Dietitian Recommendations/Changes: Continue Jevity 1.5Cal goal rate 50ml/hr Will add 200ml flushes every 4 hours to tube feed order. When sodium levels become normal, recommend decreased flushes to 130ml/hr. Will monitor weight, as available. Will adjust TF as needed. Discharge Plan Admission Admit Date/Time: 06/04/24 17:50 Primary Reason for Your Visit: Cervical fusion, pulmonary embolism, acute stroke, sepsis Attending Provider: Demetris Sullivan Primary Care Provider: Demetris Fuentes Consulting Providers: Christian Prater; Fartun Horton; Matt Rao; Bobbi Park; Scott Delgadillo; Scott Weinberg; Mode Verdugo; Sathish Garnica; Clarence Grant; Brionna Silva; Demetris Sullivan; Mira Galindo; Zeferino Carolina; Benigno Schwartz; Gerardo Washburn; Nella Zelaya; Kofi Villalobos; Jeremiah Stark; Jamil Magaña; Henry Hernandez Discharge Orders/Prescriptions Prescriptions: New acetaminophen 500 mg Tablet 1,000 mg feeding tube Q8 Qty: 0 0RF atorvastatin 40 mg Tablet 40 mg feeding tube QHS Qty: 0 0RF insulin glargine-yfgn 100 unit/mL (3 mL) Insulin Pen 25 unit subcut QHS Qty: 0 0RF insulin lispro [Humalog KwikPen Insulin] 100 unit/mL Insulin Pen 10 unit subcut Q6 Qty: 0 0RF insulin lispro [Humalog KwikPen Insulin] 100 unit/mL Insulin Pen See Protocol subcut Q6 Qty: 0 0RF Protocol: 4. Sliding Scale Insulin High-Med Dosing Condition: 150-199 mg/dl = 2 units Condition: 200-259 mg/dl = 4 units Condition: 260-324 mg/dl = 6 units Condition: 325-374 mg/dl = 8 units Condition: 375-409 mg/dl = 10 units Condition: 410-449 mg/dl = 11 units Condition: Greater than 449 call physician Protocol Text: Suggested for: - Patients on Total Daily Insulin Dose of 56-80 units - Patient who are known to be insulin resistant or septic HIGH MEDIUM DOSING ALGORITHM levothyroxine 75 mcg Tablet 75 mcg feeding tube DAILY@0600 Qty: 0 0RF menthol-zinc oxide [Calmoseptine] 0.44-20.6 % Ointment 1 applic topical BID Qty: 0 0RF Protocol: *Topical Application Instructions APPLICATION INSTRUCTIONS: ian rectal midodrine 5 mg Tablet 10 mg feeding tube TIDCM Qty: 0 0RF omeprazole 20 mg tablet,disintegrat, delay rel 40 mg PO BID Qty: 1 0RF Eliquis 5 mg tablet 10 mg PO BID Qty: 1 0RF Rx Instructions: 10 mg twice a day down G-tube for 7 days starting 06/30/2024, then reduce to 5 mg twice a day down G-tube thereafter oxycodone 20 mg/mL concentrate 10 mg PO Q4H PRN PRN (Reason: pain) 7 Days Qty: 15 0RF Discontinued atorvastatin 40 MG tablet 40 mg PO QHS levothyroxine 75 MCG tablet 75 mcg PO DAILY No Action aspirin 325 MG tablet 325 mg PO DAILY@0800 atenolol 25 MG tablet 25 mg PO QHS nitroglycerin 0.4 MG tablet 0.4 mg sublingual Q5M PRN (Reason: Chest Pain) insulin lispro [Humalog KwikPen Insulin] 100 unit/mL Insulin Pen 9 unit SUBCUT TID insulin glargine-yfgn 100 unit/mL (3 mL) insulin pen 27 unit subcut QHS omega 7-cer-elk-fish oil [Fish Oil] 1,200 (144-216) mg capsule 1 cap PO BID losartan 100 mg tablet 100 mg PO DAILY glucosamine-chondroitin [Osteo Bi-Flex] 250-200 mg tablet 2 tab PO TID Rx Instructions: give after food/meal meloxicam 7.5 mg tablet 7.5 mg PO DAILY mupirocin 2 % ointment 1 applic topical TID Jardiance 25 mg tablet 25 mg PO DAILY dexamethasone 4 mg Tablet 8 mg PO TID Qty: 0 0RF Rx Instructions: 1 tablet TID for 3 days, then 1 table BID for 4 days, then 1 tablet daily for 4 days, then every other day for 3 doses insulin lispro [Humalog KwikPen Insulin] 100 unit/mL Insulin Pen See Protocol subcut ACHS Qty: 0 0RF Protocol: 4. Sliding Scale Insulin High-Med Dosing Condition: 150-199 mg/dl = 2 units Condition: 200-259 mg/dl = 4 units Condition: 260-324 mg/dl = 6 units Condition: 325-374 mg/dl = 8 units Condition: 375-409 mg/dl = 10 units Condition: 410-449 mg/dl = 11 units Condition: Greater than 449 call physician Protocol Text: Suggested for: - Patients on Total Daily Insulin Dose of 56-80 units - Patient who are known to be insulin resistant or septic HIGH MEDIUM DOSING ALGORITHM Glucerna 1.2 Jai 0.06-1.2 gram-kcal/mL Liquid 120 ml PO TIDCM Qty: 0 0RF hydrochlorothiazide 12.5 mg capsule 12.5 mg PO DAILY acetaminophen 500 mg Tablet 1,000 mg PO Q6H PRN PRN (Reason: Pain Score 1-10) Qty: 0 0RF furosemide 40 mg Tablet 40 mg PO DAILY 30 Days Qty: 30 0RF Referrals / Follow Up: Demetris Fuentes MD [Primary Care Provider] - Jamil Chu MD [Med Staff - Active Staff] - See Referral Note (In 2 weeks, call for appointment) Disposition Disposition (needs filled in before D/C Order can be placed): Nursing Home Facility
[2024-06-29 14:59] VITALS: BP 123/62; PULSE 85; RESP 18; TEMP 36.3; O2SAT 97
--- NOTE | 2024-06-29 15:42 | DS.PCM_ITS ---
Providers Date of Admission: 06/04/24 Date of Discharge: 06/29/24 Primary Care Physician: Dr. Demetris Fuentes MD Consultations 06/04/24 17:53 Consult: Hospitalist Routine Consulting Provider: Yuliet Rocha Reason for Consult: s/p posterior cervical fusion EMERGENT Consult: No MD Notified: Yes Date Notified: 06/04/24 Time Notified: 22:02 Method of Notification: Text 06/05/24 16:48 Consult: Electrical Assembly Supervisor / Pulmonary Medicine Routine Consulting Provider: Intensivists/Pulmonary Med Reason for Consult: Respiratory failure EMERGENT Consult: Yes MD Notified: Yes Date Notified: 06/05/24 Time Notified: 13:00 Method of Notification: Verbal 06/07/24 07:04 Consult: Onc/Wound/migratory farm hand Routine Comment: Reason for Consult:: VAC upper back 06/18/24 12:30 Consult: Gastroenterology Routine Consulting Provider: Didi Gastro[facility] Reason for Consult: dobhoff tube placement EMERGENT Consult: No MD Notified: Yes Date Notified: 06/18/24 Time Notified: 12:35 Method of Notification: Text 06/21/24 09:26 Consult: Nephrology Routine Consulting Provider: Jeremiah Stark Reason for Consult: seth on ckd EMERGENT Consult: No Notified: Yes Date Notified: 06/21/24 Time Notified: 09:42 Method of Notification: Answering Service 06/23/24 07:35 Consult: Infectious Disease Routine Consulting Provider: Jamil Magaña Reason for Consult: post-op hematoma wound cx w/ rare Enterobacter growth, need abx? EMERGENT Consult: No Notified: Yes Date Notified: 06/24/24 Time Notified: 04:39 Method of Notification: Answering Service Diagnosis Discharge Diagnosis (1) Status post cervical spinal fusion: Status: Acute Code(s): Z98.1 - Arthrodesis status (2) Cervical myelopathy: Status: Acute Code(s): G95.9 - Disease of spinal cord, unspecified Plan 1. Acute hypoxic respiratory failure secondary to bilateral pulmonary emboli- due to the patient's bleeding duodenal ulcers, I have elected to restart the patient's anticoagulant tonight, currently is on room air #2 acute CVA with blindness-patient will remain on high intensity statin at this time #3 acute metabolic encephalopathy with oropharyngeal dysphagia-etiology unclear, patient is able to respond to simple questions at times but does not carry on a conversation with this examiner #4 status post C3-T1 fusion with cellulitis-patient will complete his antibiotics tomorrow #5 acute protein caloric malnutrition-related to inadequate oral intake as evidenced by p.o. meeting less than 50% of estimated nutritional needs x 1 week, 7% unintentional weight loss x 2 weeks-patient is currently receiving tube feedings, nutritional services participating in the patient's care #6 anemia-likely acute in nature, secondary to bleeding duodenal ulcers- patient's hemoglobin remains stable at this time #7 acute kidney injury-patient's creatinine is improving, nephrology is participating in his care #8 sepsis secondary to Klebsiella urinary tract infection-resolved at this time #9 bleeding duodenal ulcers-patient's hemoglobin remains stable at this time #10 pulmonary embolism-during this hospitalization, patient remains on Lovenox, I will transition the patient to Eliquis when discharged Total clinical time spent by myself addressing the patient's medical issues, reviewing all of his data, and collaborating with patient's care team: 35 minutes Medications at Discharge Home Medications aspirin 325 mg tablet 325 mg PO DAILY@0800 HEALTH MAINTENANCE 08/20/16 atenolol 25 mg tablet 25 mg PO QHS BP 08/20/16 nitroglycerin 0.4 mg sublingual tablet 0.4 mg sublingual Q5M PRN Chest Pain 08/20/16 insulin glargine-yfgn 100 unit/mL (3 mL) subcutaneous pen 27 unit subcut QHS Diabetes 12/19/22 insulin lispro 100 unit/mL subcutaneous pen (Humalog KwikPen (U-100) Insulin) 9 unit subcut TID Diabetes 12/19/22 glucosamine-chondroitin 250 mg-200 mg tablet (Osteo Bi-Flex) 2 tab PO TID Supplement 11/16/23 losartan 100 mg tablet 100 mg PO DAILY BP 11/16/23 omega 4-ezy-zeb-fish oil 1,200 mg (144 mg-216 mg) capsule (Fish Oil) 1 cap PO BID Supplement 11/16/23 acetaminophen 500 mg tablet 1,000 mg (2 x 500 mg) PO Q6H PRN PRN Pain Score 1-10 #0 tabs 12/07/23 furosemide 40 mg tablet 40 mg PO DAILY Fluid retention 30 days #30 tabs 12/07/23 empagliflozin 25 mg tablet (Jardiance) 25 mg PO DAILY Blood sugar 05/28/24 meloxicam 7.5 mg tablet 7.5 mg PO DAILY Osteoarthristis 05/28/24 mupirocin 2 % topical ointment 1 applic topical TID Skin condition 05/28/24 dexamethasone 4 mg tablet 8 mg (2 x 4 mg) PO TID Steroid #0 tabs 05/31/24 insulin lispro 100 unit/mL subcutaneous pen (Humalog KwikPen (U-100) Insulin) See Protocol subcut ACHS Blood sugar #0 mL 05/31/24 nutrition tx glu intol,lac-free,soy-fiber 0.06 gram-1.2 kcal/mL liquid (Glucerna 1.2 Jai) 120 ml PO TIDCM supplement #0 mL 05/31/24 hydrochlorothiazide 12.5 mg capsule 12.5 mg PO DAILY bp 06/04/24 acetaminophen 500 mg tablet 1,000 mg (2 x 500 mg) feeding tube Q8 #0 tabs 06/29/24 apixaban 5 mg tablet (Eliquis) 10 mg (2 x 5 mg) PO BID #1 TAB 06/29/24 atorvastatin 40 mg tablet 40 mg feeding tube QHS #0 tabs 06/29/24 insulin glargine-yfgn 100 unit/mL (3 mL) subcutaneous pen 25 unit (0.25 mL) subcut QHS #0 mL 06/29/24 insulin lispro 100 unit/mL subcutaneous pen (Humalog KwikPen (U-100) Insulin) 10 unit (0.1 mL) subcut Q6 #0 mL 06/29/24 insulin lispro 100 unit/mL subcutaneous pen (Humalog KwikPen (U-100) Insulin) See Protocol subcut Q6 #0 mL 06/29/24 levothyroxine 75 mcg tablet 75 mcg feeding tube DAILY@0600 #0 tabs 06/29/24 menthol 0.44 %-zinc oxide 20.6 % topical ointment (Calmoseptine) 1 applic topical BID #0 grams 06/29/24 midodrine 5 mg tablet 10 mg (2 x 5 mg) feeding tube TIDCM #0 tabs 06/29/24 omeprazole 20 mg delayed release,disintegrating tablet 40 mg (2 x 20 mg) PO BID #1 TAB 06/29/24 oxycodone 20 mg/mL oral concentrate 10 mg (0.5 mL) PO Q4H PRN PRN pain 7 days #15 mL 06/29/24 Hospital Course Operations None Procedures Peg tube placement and - (Cervical fusion, drainage of hematoma of the cervical spine area) Summary of Care Provided Minutes Spent on Discharge: 33 Hospital Course: This 83-year-old white male was admitted to [facility] after undergoing a cervical fusion. A short while after surgery, patient became hypoxic and was diagnosed with a pulmonary embolism. Patient underwent a prolonged protracted hospital course due to sepsis, the need for surgery to drain a hematoma in the cervical spine area, and strokes in the bilateral occipital areas and a cerebellar infarct. This left the patient blind. Patient also had encephalopathy during his hospital course which made it difficult to care for him, he also had oropharyngeal dysphagia and had to have a PEG tube inserted for nutritional support. Patient's condition finally stabilized, he was seen by PT and OT and arranges were made for the patient to go to a alf facility for inpatient skilled services. On 06/29/2024, patient was seen and examined:alert and no apparent distress, unable to carry on a conversation Constitutional Narrative: Patient response to simple questions appropriately at times General Appearance: cooperative, well kempt and well developed Orientation / Consciousness: awake, oriented to person HEENT normocephalic, head/scalp atraumatic and moist oral mucous membranes Eyes PERRL, EOMs intact bilaterally and conjunctivae normal Neck supple, no JVD, thyroid normal and no carotid bruits General: trachea midline Resp normal respiratory effort, no retractions, no use of accessory muscles and clear to auscultation bilaterally Auscultation: Negative for rales, rhonchi or wheezes Cardio regular rate, regular rhythm, S1 normal heart sound, S2 normal heart sound, no murmurs, no rub and no gallops GI PEG tube in place Extremity no clubbing, cyanosis or edema Skin no rashes or lesions noted General Skin Exam: no breakdown Neuro CN's II-XII intact bilaterally Sensorium / Orientation: awake, alert, oriented to person Speech: Is not able to carry on a conversation Psych affect flat Patient was transferred to a alf facility for inpatient skilled services on 06/29/2024 in stable condition. Medical Records Data Medical Nutrition Assessment Dietitian: Malnutrition Criteria Met Start: 06/16/24 10:42 Freq: Status: Active Protocol: Document 06/16/24 10:43 SB (Rec: 06/16/24 10:43 SB [id number]) Nutrition Malnutrition Evidence of Malnutrition Exists Yes Malnutrition (severe): Acute Illness/Injury Evidenced By Suboptimal Energy Intake ( Severe),Weight Loss (Severe) Intake Problem Inadequate Oral Intake Etiology related to mental status Signs/Symptoms as evidenced by NPO status. Status Active Problem Clinical Problem Acute Disease or Injury Related Malnutrition Etiology severe related to inadequate oral intake Signs/Symptoms as evidenced by PO meeting <50 % of estimated nutrition needs x 1 week, 7% unintentional weight loss x 2 weeks, and 2+ pitting edema in L arm. Status Active Problem Altered Nutrient-Related Laboratory Values Etiology related to endocrine dysfunction/diabetes Signs/Symptoms as evidenced by A1C 11% and glucose 254 Status Active Problem Recommendation Dietitian Recommendations/Changes Recommend advanced diet as tolerated to liberal regular diet d/t signs and symptoms of malnutrition, per BUILDING SERVICES ENGINEER consistency/texture recommendations. Will d/c glucerna shake d/t NPO. Recommend initiating nutrition support in 24-48 hours if pt is still NPO. If nutrition support is initiated recommend Jevity 1. 5Cal goal rate 50ml/hr with 130ml flushes every 4 hours to provide 1800 calories, 76g protein, and 1692ml total fluid/day. Wound start at 10ml /hr d/t risk of refeeding syndrome and increase by 10ml every 8-12 hours as tolerated until goal rate is achieved. Will monitor weight, as available. Reviewed and approved by Jeanna Seals RDN, LD. Weight / BMI Weight Weight: 109.3 kg Body Mass Index (BMI) 37.7 ABG / Lab / Microbiology Data 06/27/24 09:11 06/25/24 06:04 Laboratory: Laboratory Results - last 24 hr 06/28/24 16:53: POC Glucose 172 H 06/28/24 22:18: POC Glucose 112 H 06/29/24 00:26: POC Glucose 148 H 06/29/24 06:01: POC Glucose 115 H 06/29/24 12:14: POC Glucose 170 H Microbiology: Microbiology 06/21/24 09:25 Urine, Random Urine Culture - Final Culture exhibits no growth. 06/17/24 12:51 Wound - Neck Gram Stain - Final 06/17/24 12:51 Wound - Neck Wound Culture - Final Enterobacter cloacae complex 06/17/24 12:51 Wound - Neck Anaerobic Culture - Final No anaerobic bacteria isolated. 06/12/24 08:30 Blood Culture (Wb) - Anticubital Right Blood Culture - Final No growth in 5 days. 06/11/24 08:30 Urine Catheter - Catheter Urine Culture - Final Klebsiella oxytoca D/C Instructions DC O2, CPAP, BIPAP Needs PSN CPAP & BiPAP: BiPAP & CPAP Settings per PSN Mode AIRVO 06/06/24 15:34 Bipap Delivery Device Nasal Pillows 06/06/24 15:34 BiPAP Inspiratory Pressure 18 06/05/24 20:00 BiPAP Expiratory Pressure 10 06/05/24 20:00 BiPAP Rate 12 06/05/24 20:00 Fraction of Inspired Oxygen ( 30 06/25/24 10:12 FIO2) Total Flow Rate 40 06/06/24 15:34 Home O2 Discharge instructions: Yes Type of respiratory needs?: BiPAP BiPAP oxygen liters per minute: FiO2 0.3 BiPAP instructions: As above DC home with Oxygen: Yes Home O2 MD Review: I have reviewed the oxygen testing, and the patient qualifies for home oxygen equipment and portability. The patient is mobile in the home and the community. Meaningful Use Info Meaningful Use Meaningful Use Diagnoses (Choose all that apply): Ischemic CVA CVA Therapy Assessed for PT,OT and/or ST?: Yes Ischemic Stroke Antithrombotic order at d/c?: No Reason antithrombotic not ordered: Treatment not Indicated (Placed on Eliquis at the time of discharge) Dx of Atrial fib/flutter?: No Anticoagulant at discharge?: Yes Statin Dosing Therapy Reference: STATIN DOSE THERAPY REFERENCE: * Patients > 75 years receive moderate or high dose statin therapy. * Patients 75 years or YOUNGER should receive HIGH intensity statin dose unless contraindicated. You will be required to document reason for non-treatment if statin daily dose does not meet guidelines. HIGH DOSE STATIN THERAPY DAILY Atorvastatin > than or = to 40 mg Rosuvastatin > than or = to 20 mg Amlodipine + Atorvastatin > than or = to 2.5/40 mg Ezetimibe + Simvastatin 10/80 mg Simvastatin 80mg Statins at discharge?: Yes Primary Dx Acute Ischemic CVA?: No IV thrombolytic ordered during stay?: No Discharge Plan Admission Admit Date/Time: 06/04/24 17:50 Primary Reason for Your Visit: Cervical fusion, pulmonary embolism, acute stroke, sepsis Attending Provider: Demetris Sullivan Primary Care Provider: Demetris Fuentes Consulting Providers: Christian Prater; Fartun Horton; Matt Rao; Bobbi Park; Scott Delgadillo; Scott Weinberg; Mode Verdugo; Sathish Garnica; Clarence Grant; Brionna Silva; Demetris Sullivan; Mira Galindo; Zeferino Carolina; Benigno Schwartz; Gerardo Washburn; Nella Zelaya; Kofi Villalobos; Jeremiah Stark; Jamil Magaña; Henry Hernandez Discharge Orders/Prescriptions Prescriptions: New acetaminophen 500 mg Tablet 1,000 mg feeding tube Q8 Qty: 0 0RF atorvastatin 40 mg Tablet 40 mg feeding tube QHS Qty: 0 0RF insulin glargine-yfgn 100 unit/mL (3 mL) Insulin Pen 25 unit subcut QHS Qty: 0 0RF insulin lispro [Humalog KwikPen Insulin] 100 unit/mL Insulin Pen 10 unit subcut Q6 Qty: 0 0RF insulin lispro [Humalog KwikPen Insulin] 100 unit/mL Insulin Pen See Protocol subcut Q6 Qty: 0 0RF Protocol: 4. Sliding Scale Insulin High-Med Dosing Condition: 150-199 mg/dl = 2 units Condition: 200-259 mg/dl = 4 units Condition: 260-324 mg/dl = 6 units Condition: 325-374 mg/dl = 8 units Condition: 375-409 mg/dl = 10 units Condition: 410-449 mg/dl = 11 units Condition: Greater than 449 call physician Protocol Text: Suggested for: - Patients on Total Daily Insulin Dose of 56-80 units - Patient who are known to be insulin resistant or septic HIGH MEDIUM DOSING ALGORITHM levothyroxine 75 mcg Tablet 75 mcg feeding tube DAILY@0600 Qty: 0 0RF menthol-zinc oxide [Calmoseptine] 0.44-20.6 % Ointment 1 applic topical BID Qty: 0 0RF Protocol: *Topical Application Instructions APPLICATION INSTRUCTIONS: ian rectal midodrine 5 mg Tablet 10 mg feeding tube TIDCM Qty: 0 0RF omeprazole 20 mg tablet,disintegrat, delay rel 40 mg PO BID Qty: 1 0RF Eliquis 5 mg tablet 10 mg PO BID Qty: 1 0RF Rx Instructions: 10 mg twice a day down G-tube for 7 days starting 06/30/2024, then reduce to 5 mg twice a day down G-tube thereafter oxycodone 20 mg/mL concentrate 10 mg PO Q4H PRN PRN (Reason: pain) 7 Days Qty: 15 0RF Discontinued atorvastatin 40 MG tablet 40 mg PO QHS levothyroxine 75 MCG tablet 75 mcg PO DAILY No Action aspirin 325 MG tablet 325 mg PO DAILY@0800 atenolol 25 MG tablet 25 mg PO QHS nitroglycerin 0.4 MG tablet 0.4 mg sublingual Q5M PRN (Reason: Chest Pain) insulin lispro [Humalog KwikPen Insulin] 100 unit/mL Insulin Pen 9 unit SUBCUT TID insulin glargine-yfgn 100 unit/mL (3 mL) insulin pen 27 unit subcut QHS omega 0-bpg-ebb-fish oil [Fish Oil] 1,200 (144-216) mg capsule 1 cap PO BID losartan 100 mg tablet 100 mg PO DAILY glucosamine-chondroitin [Osteo Bi-Flex] 250-200 mg tablet 2 tab PO TID Rx Instructions: give after food/meal meloxicam 7.5 mg tablet 7.5 mg PO DAILY mupirocin 2 % ointment 1 applic topical TID Jardiance 25 mg tablet 25 mg PO DAILY dexamethasone 4 mg Tablet 8 mg PO TID Qty: 0 0RF Rx Instructions: 1 tablet TID for 3 days, then 1 table BID for 4 days, then 1 tablet daily for 4 days, then every other day for 3 doses insulin lispro [Humalog KwikPen Insulin] 100 unit/mL Insulin Pen See Protocol subcut ACHS Qty: 0 0RF Protocol: 4. Sliding Scale Insulin High-Med Dosing Condition: 150-199 mg/dl = 2 units Condition: 200-259 mg/dl = 4 units Condition: 260-324 mg/dl = 6 units Condition: 325-374 mg/dl = 8 units Condition: 375-409 mg/dl = 10 units Condition: 410-449 mg/dl = 11 units Condition: Greater than 449 call physician Protocol Text: Suggested for: - Patients on Total Daily Insulin Dose of 56-80 units - Patient who are known to be insulin resistant or septic HIGH MEDIUM DOSING ALGORITHM Glucerna 1.2 Jai 0.06-1.2 gram-kcal/mL Liquid 120 ml PO TIDCM Qty: 0 0RF hydrochlorothiazide 12.5 mg capsule 12.5 mg PO DAILY acetaminophen 500 mg Tablet 1,000 mg PO Q6H PRN PRN (Reason: Pain Score 1-10) Qty: 0 0RF furosemide 40 mg Tablet 40 mg PO DAILY 30 Days Qty: 30 0RF Referrals / Follow Up: Demetris Fuentes MD [Primary Care Provider] - Jamil Chu MD [Med Staff - Active Staff] - See Referral Note (In 2 weeks, call for appointment) Disposition Disposition (needs filled in before D/C Order can be placed): [facility] Facility Charges/Coding Visit Charges Inpatient E&M: 37405 Disch Hosp >30min
[2024-06-29] MEDS: Enoxaparin 60 MG/0.6 ML Syringe 50 MG SC (16:41)
== END 2024-06-29 17:15 | disposition skilled nursing facility (03) | DRG 471 ==
LOC: SDC 19:59 → MS3 19:59 → ICU 06-05 12:26 → PCU 06-07 09:45 → ICU 06-11 11:05 → PCU 06-11 11:06 → ICU 06-11 17:23 → PCU 06-14 09:42 → ICU 06-14 16:21
PROVIDERS: Anesthesiology; Family Medicine; Hospitalist; Internal Medicine; Internal Medicine Critical Care Medicine; Internal Medicine Gastroenterology; Student in an Organized Health Care Education/Training Program; Surgery Plastic and Reconstructive Surgery; Admitting Provider Orthopaedic Surgery Orthopaedic Surgery of the Spine; PCP Family Medicine; Referring Provider Orthopaedic Surgery Orthopaedic Surgery of the Spine; Visit Provider Internal Medicine
PROC: 0RG2071 Fusion of 2 or more Cervical Vertebral Joints with Autologous Tissue Substitute, Posterior Approach, Posterior Column, Open Approach (ICD-10-PCS; principal; 2024-06-04 13:15)
PROC: 0W9600Z Drainage of Neck with Drainage Device, Open Approach (ICD-10-PCS; principal; 2024-06-17 10:15)
PROC: 0DJ08ZZ Inspection of Upper Intestinal Tract, Via Natural or Artificial Opening Endoscopic (ICD-10-PCS; CPT 43235; principal; 2024-06-20 12:10)
DX: M50.01 Cervical disc disorder with myelopathy, high cervical region (principal); J96.01 Acute respiratory failure with hypoxia; I26.99 Other pulmonary embolism without acute cor pulmonale; A41.59 Other Gram-negative sepsis; R65.21 Severe sepsis with septic shock; I63.9 Cerebral infarction, unspecified; G93.41 Metabolic encephalopathy; E43 Unspecified severe protein-calorie malnutrition; K26.4 Chronic or unspecified duodenal ulcer with hemorrhage; N17.9 Acute kidney failure, unspecified; E87.0 Hyperosmolality and hypernatremia; L76.32 Postprocedural hematoma of skin and subcutaneous tissue following other procedure; D62 Acute posthemorrhagic anemia; N39.0 Urinary tract infection, site not specified; L03.312 Cellulitis of back [any part except buttock and flank]; E66.01 Morbid (severe) obesity due to excess calories; E11.40 Type 2 diabetes mellitus with diabetic neuropathy, unspecified; N18.32 Chronic kidney disease, stage 3b; E03.9 Hypothyroidism, unspecified; I12.9 Hypertensive chronic kidney disease with stage 1 through stage 4 chronic kidney disease, or unspecified chronic kidney disease; I69.398 Other sequelae of cerebral infarction; M48.02 Spinal stenosis, cervical region; Z79.4 Long term (current) use of insulin; E78.00 Pure hypercholesterolemia, unspecified; E11.65 Type 2 diabetes mellitus with hyperglycemia; E11.51 Type 2 diabetes mellitus with diabetic peripheral angiopathy without gangrene; I25.10 Atherosclerotic heart disease of native coronary artery without angina pectoris; E11.22 Type 2 diabetes mellitus with diabetic chronic kidney disease; M17.0 Bilateral primary osteoarthritis of knee; I95.89 Other hypotension; H54.3 Unqualified visual loss, both eyes; Z68.38 Body mass index [BMI] 38.0-38.9, adult; T40.2X5A Adverse effect of other opioids, initial encounter; E66.812 Obesity, class 2; B96.1 Klebsiella pneumoniae [K. pneumoniae] as the cause of diseases classified elsewhere; B95.2 Enterococcus as the cause of diseases classified elsewhere; R13.12 Dysphagia, oropharyngeal phase; R29.6 Repeated falls; R33.9 Retention of urine, unspecified; R42 Dizziness and giddiness; R53.1 Weakness; T38.0X5A Adverse effect of glucocorticoids and synthetic analogues, initial encounter; Z66 Do not resuscitate; Z91.041 Radiographic dye allergy status; Z79.1 Long term (current) use of non-steroidal anti-inflammatories (NSAID); Z79.01 Long term (current) use of anticoagulants; Z79.52 Long term (current) use of systemic steroids; Z79.82 Long term (current) use of aspirin; Z79.84 Long term (current) use of oral hypoglycemic drugs; Z79.890 Hormone replacement therapy; Z79.899 Other long term (current) drug therapy
CPT/HCPCS: 36415; 36600; 70450; 71045; 71275; 72040; 72125; 76000; 80048; 80069; 80076; 81001; 82570; 82803; 82962; 83036; 83735; 83880; 84100; 84300; 84443; 84484; 85025; 85027; 85610; 85730; 86850; 86900; 86901; 86920; 86921; 86922; 87040; 87070; 87075; 87077; 87086; 87088; 87102; 87186; 87205; 87206; 92526; 92610; 93005; 93306; 94002; 94660; 94762; 97110; 97162; 97164; 97166; 97168; 97530; 97535; 97803; C1713; P9016; Q9957; Q9967; A4216; C8929; J2405